=== PATIENT | male | born 1965 | race Two or more races ===

== ENCOUNTER 2019-07-05 01:14 | Inpatient (IN) | payer MEDICARE, MEDICAID, SELFPAY | END 2019-07-08 14:45 | disposition home or self-care (01) | DRG 280 | PROVIDERS: Admitting Provider Internal Medicine; Emergency Provider Emergency Medicine; Family Provider Internal Medicine; Visit Provider Family Medicine | DX: I21.4 Non-ST elevation (NSTEMI) myocardial infarction (principal); J96.01 Acute respiratory failure with hypoxia; N18.6 End stage renal disease; I50.21 Acute systolic (congestive) heart failure; J18.9 Pneumonia, unspecified organism; J96.12 Chronic respiratory failure with hypercapnia; I13.0 Hypertensive heart and chronic kidney disease with heart failure and stage 1 through stage 4 chronic kidney disease, or unspecified chronic kidney disease; E87.2 Acidosis; G89.29 Other chronic pain; M54.9 Dorsalgia, unspecified; Z99.2 Dependence on renal dialysis; Z95.5 Presence of coronary angioplasty implant and graft; Z79.4 Long term (current) use of insulin; Z79.891 Long term (current) use of opiate analgesic; E11.22 Type 2 diabetes mellitus with diabetic chronic kidney disease; Z86.14 Personal history of Methicillin resistant Staphylococcus aureus infection; R19.09 Other intra-abdominal and pelvic swelling, mass and lump; Z79.82 Long term (current) use of aspirin; J44.9 Chronic obstructive pulmonary disease, unspecified; E78.5 Hyperlipidemia, unspecified; Z87.891 Personal history of nicotine dependence; K21.9 Gastro-esophageal reflux disease without esophagitis; D63.1 Anemia in chronic kidney disease; I25.10 Atherosclerotic heart disease of native coronary artery without angina pectoris ==

== ENCOUNTER 2019-07-12 00:31 | Inpatient (IN) | payer MEDICARE, MEDICAID, SELFPAY ==
[2019-07-14] VITALS (17 sets, daily range): BP systolic 105–165; BP diastolic 53–80; PULSE 60–72; RESP 10–20; TEMP 36.7–37.1; O2SAT 90–98
[2019-07-14] MEDS: ipratropium-albuterol 3 mL Neb INHALATION ×2 (02:37→09:05)
--- NOTE | 2019-07-14 03:15 | PC.NURSE ---
UPON SWITCHING TO NEW SYSTEM EXPANSE, PT ALREADY HAD NITRO DRIP RUNNING. NITRO DRIP IS RUNNING AT 10MCG/MIN.
[2019-07-14] MEDS: heparin 5,000 unit/mL INJ 1 mL 5000 UNIT SUBCUT ×2 (05:35→13:13)
[2019-07-14] MEDS: sodium chloride 0.9 % (flush) syringe 10 mL 2 ML IV ×2 (05:35→13:14)
--- NOTE | 2019-07-14 06:40 | PC.NURSE ---
SHIFT SUMMARY PT HAS BEEN ALERT AND ORIENTATED. PT BLOOD PRESSURE HAS CAME DOWN, LAST PRESSURE WAS MUCH BETTER. 105/53. NITRO IS STILL RUNNING AT 10 MCG/MIN. PT LUNGS REMAIN CLEAR. PT HAS NOT HAD ANY OUTPUT THUS FAR. PT HAS HAD NO CARDIAC EVENTS OR RESPIRATORY DISTRESS EVENTS THIS SHIFT.
[2019-07-14] MEDS: duloxetine 60 mg Capsule PO (08:55)
[2019-07-14] MEDS: NIFEdipine ER (24 hr) 30 mg Tablet 60 MG PO ×2 (08:55→17:11)
[2019-07-14] MEDS: isosorbide mononitrate ER 30 mg Tablet PO ×2 (08:56→17:10)
[2019-07-14] MEDS: hyDRALAzine 50 mg Tablet PO ×3 (08:56→17:11)
[2019-07-14] MEDS: clopidogrel 75 mg Tablet PO (08:56)
[2019-07-14] MEDS: losartan 50 mg Tablet 100 MG PO (08:56)
[2019-07-14] MEDS: cyclobenzaprine 10 mg Tablet PO (08:56)
[2019-07-14] MEDS: metoprolol tartrate 50 mg Tablet PO ×2 (08:56→17:10)
[2019-07-14] MEDS: aspirin 81 mg EC Tablet PO (08:56)
[2019-07-14] MEDS: pantoprazole DR 40 mg Tablet PO (08:56)
[2019-07-14 09:23] LABS: Add RBC Morph No
[2019-07-14 09:31] LABS: Basophils # 0.1 10^3/uL (0.0-0.1); Basophils % 0.9 %; Eosinophils # 0.2 10^3/uL (0.0-0.8); Eosinophils % 4.4 %; Hematocrit 27.5 % (42.0-52.0); Hemoglobin 8.8 g/dL (11.7-16.6); Lymphocytes # 1.6 10^3/uL (0.8-4.8); Lymphocytes % 28.8 %; Mean Corpuscular Hemoglobin 28.7 pg (28.0-34.0); Mean Corpuscular Volume 89.6 fL (80-94); Mean Platelet Volume 10.5 fL (7.4-10.4); Monocytes # 0.5 10^3/uL (0.2-0.9); Monocytes % 8.2 %; Neutrophils # 3.2 10^3/uL (1.8-7.7); Neutrophils % 57.3 %; Nucleated Red Blood Cells % 0 %; Platelet Count 187 10^3/cmm (130-400); Red Blood Count 3.07 10^6/uL (4.1-5.3); Red Cell Distribution Width 15.2 % (12.1-15.1); White Blood Count 5.5 10^3/uL (4.0-10.0)
[2019-07-14 10:10] LABS: Alanine Aminotransferase 9 U/L (0-41); Albumin Level 3.5 g/dL (3.5-5.2); Alkaline Phosphatase 79 IU/L (40-130); Anion Gap 16.8 (5-19); Aspartate Amino Transferase 18 U/L (0-40); Blood Urea Nitrogen 41 mg/dL (6-20); Calcium 8.9 mg/Dl (8.6-10.0); Carbon Dioxide 27 mmol/L (22-29); Chloride 99 mmol/L (98-107); Globulin 3.2 g/dL (1.3-4.6); Glomerular Filtration Rate 13.1 mL/min (90-130); Glucose 187 mg/dL (74-109); Potassium 3.8 mmol/L (3.5-5.1); Sodium 139 mmol/L (136-145); Total Bilirubin 0.3 mg/dL (0.15-1.2); Total Protein 6.7 g/dL (6.6-8.7)
--- NOTE | 2019-07-14 10:20 | PM.PN ---
Subjective Subjective: Interval history: Nitroglycerin drip was turned off this morning. Imdur was increased to twice daily. Blood pressure this morning is currently well controlled at 123/62, heart rate of 67. He denies any current complaints of chest pain, dyspnea, palpitations, syncope. Medications: Reviewed: Yes Vitals/I&O/Wt Last Vital Signs Temp 98.2 F 07/14/19 08:00 Pulse 67 07/14/19 09:09 Resp 14 07/14/19 08:55 BP 123/62 07/14/19 08:56 Pulse Ox 98 07/14/19 08:55 07/13/19 07/14/19 07/14/19 22:59 06:59 14:59 Intake Total 110 / 110 Balance 110 / 110 Weight last 48 hrs Weight 95.935 kg Weight 98.543 kg Physical Exam Const: COMMON NORMALS: no apparent distress and oriented x3 Chest: COMMONS NORMALS: inspection of chest normal and palpation of chest normal Resp: COMMON NORMALS: normal respiratory effort, no retractions, no use of accessory muscles and clear to auscultation bilaterally AUSCULTATION: clear to auscultation bilaterally Cardio: COMMON NORMALS: regular rhythm, S1 normal heart sound, S2 normal heart sound and no murmurs RHYTHM: regular rhythm HEART SOUNDS: S1 normal and S2 normal GI: COMMON NORMALS: soft to palpation, non-tender, no hepatosplenomegaly and no masses PALPATION: Yes soft and Yes no hepatosplenomegaly Extremity: OTHER: no edema Neuro: COMMON NORMALS: oriented x3, CN's II-XII intact bilaterally, moves all extremities, no focal motor deficits and deep tendon reflexes 2+ bilaterally Skin: COMMON NORMALS: no rashes or lesions noted GENERAL SKIN EXAM: no rashes or lesions noted Data Labs: Other Labs: All Labs last 24 hrs except CBC/BMP 07/13/19 07/13/19 07/13/19 03:35 03:35 07:22 RBC 2.93 L MCV 91.8 MCH 30.0 MCHC 32.7 RDW 14.9 MPV 10.4 Neut % (Auto) 68.3 Lymph % (Auto) 19.4 [place] % (Auto) 10.6 Eos % (Auto) 0.8 Baso % (Auto) 0.5 Neut # (Auto) 5.1 Lymph # (Auto) 1.5 [place] # (Auto) 0.8 Eos # (Auto) 0.1 Baso # (Auto) 0.0 Nucleated RBC % (a uto) 0 Nucleated RBCs # 0.0 GFR Calculation 10.9 L POC Glucose 202 H Random Glucose 179 H Calcium 9.4 Total Bilirubin AST ALT Alkaline Phosphata se Total Protein Albumin Globulin 07/13/19 07/13/19 07/13/19 11:47 17:05 19:59 RBC MCV MCH MCHC RDW MPV Neut % (Auto) Lymph % (Auto) [place] % (Auto) Eos % (Auto) Baso % (Auto) Neut # (Auto) Lymph # (Auto) [place] # (Auto) Eos # (Auto) Baso # (Auto) Nucleated RBC % (a uto) Nucleated RBCs # GFR Calculation POC Glucose 168 H 321 H 231 H Random Glucose Calcium Total Bilirubin AST ALT Alkaline Phosphata se Total Protein Albumin Globulin 07/14/19 07/14/19 09:20 09:20 RBC 3.07 L MCV 89.6 MCH 28.7 MCHC 32.0 RDW 15.2 H MPV 10.5 H Neut % (Auto) 57.3 Lymph % (Auto) 28.8 [place] % (Auto) 8.2 Eos % (Auto) 4.4 Baso % (Auto) 0.9 Neut # (Auto) 3.2 Lymph # (Auto) 1.6 [place] # (Auto) 0.5 Eos # (Auto) 0.2 Baso # (Auto) 0.1 Nucleated RBC % (a uto) 0 Nucleated RBCs # 0.0 GFR Calculation 13.1 L POC Glucose Random Glucose Calcium 8.9 Total Bilirubin 0.3 AST 18 ALT 9 Alkaline Phosphata se 79 Total Protein 6.7 Albumin 3.5 Globulin 3.2 A&P Assessment and plan (1) Congestive heart failure: Precipitated by hypertensive emergency blood pressure on arrival was greater than 220. Status: Acute Qualifiers: Heart failure type: other Qualified Code(s): I50.9 - Heart failure, unspecified Code(s): I50.9 - Heart failure, unspecified (2) Hypertensive emergency: Most likely precipitated by lack of compliance with medications as an outpatient. He is off of NTG infusion since 9 AM this morning and is holding systolic blood pressures between 1 20-1 30s. We will continue hydralazine metoprolol nifedipine and the increased dose of Imdur yesterday. We will monitor him through the day on this regimen. Status: Acute Code(s): I16.1 - Hypertensive emergency (3) Diabetes mellitus: Continue insulin sliding scale Status: Acute Code(s): E11.9 - Type 2 diabetes mellitus without complications (4) End stage renal disease on dialysis: No dialysis planned for today. Patient will resume his HD tomorrow morning. He is planned for vein mapping for creation of an AV fistula in [place]. Has an appointment tomorrow. If his him blood pressure is stable today we will discharge later today so that patient can keep this appointment. He is extremely anxious to do the same as he has missed his last 2 appointments recently. Status: Acute Code(s): N18.6 - End stage renal disease; Z99.2 - Dependence on renal dialysis Attestations Medical Necessity Statement*: Remains admitted for management of hypertensive emergency. Clinically improving. Likely discharge in the upcoming days. Critical Care Time: Critical care time: 30 - 74 mins Coding Level of Care Code Acute Engineering Group Manager for Thomas Keen Diagnoses Congestive heart failure I50.9 Heart failure type: other Hypertensive emergency I16.1 Diabetes mellitus E11.9 End stage renal disease on dialysis N18.6; Z99.2
[2019-07-14] MEDS: FUROsemide 10 mg/mL SDV 4mL 40 MG IVP (11:15)
--- NOTE | 2019-07-14 14:56 | PC.CHAP ---
Pastoral Care Encounter/Spiritual Assessment Type of Contact [X] Declined flocculator operator visit [] Patient/Family/Request visit [] Outpatient visit [] Follow-up visit [] Physician referral [] Code/Alert [] Routine visit [] Staff referral [] Actively dying [] Patient sleeping [] Family support [] [] Out of room [] Palliative care [] [] Receiving care in room [] Pre-surgical visit [] Trauma [] Long length of stay [] ICU visit [] Other: Relational/Emotional Strength [] Patient feels connected with others/family/visitors/staff [] Distress [] Loneliness/isolation [] Abandonment Spirituality of Patient [] Person of Jana [] Attends Pentecostalism of their Jana [] Believes in Prayer [] Reads Bible or Bahai materials [] There are Spiritual issues to be addressed Office Chair Assembler Interventions [] Prayer [] Active listening [] Non-anxious presence [] Spiritual/emotional support [] Crisis/trauma care [] Spiritual counseling [] Bereavement support [] Provided bereavement packet [] Provided Bible/devotional materials [] Provided toy/stuffed animal, coloring book to patient or family member [] Completed spiritual assessment [] Provided Communion [] Anointing/[facility] [] Salvation [] Other: Impact on Illness or Injury [] Angry [] Fearful [] Anxious [] Often cries [] Exhaustion [] Unable to work [] Unable to attend moravian [] Unable to walk/stand [] Unable to read [] Unable to drive [] Unable to eat/drink [] Unable to sleep [] Unable to be with family [] Other: Summary Declinded Office Chair Assembler Visit Time spent with patient 5 mins
--- NOTE | 2019-07-14 17:04 | PM.PN ---
Subjective Subjective: Interval history: Feels good, received dialysis yesterday, tolerating the therapy well. Bp looks good with oral meds now and he is relatively asymptomatic Medications: Medication Review Details: Vitals/I&O/Wt Last Vital Signs Temp 98.3 F 07/14/19 12:00 Pulse 66 07/14/19 16:00 Resp 12 07/14/19 16:00 BP 137/68 07/14/19 16:00 Pulse Ox 98 07/14/19 16:00 07/14/19 07/14/19 07/14/19 06:59 14:59 22:59 Intake Total 120 / 120 210 / 210 Balance 120 / 120 210 / 210 Weight last 48 hrs Weight 96.615 kg Weight 95.935 kg Weight 98.543 kg Physical Exam Const: COMMON NORMALS: no apparent distress, average body habitus, oriented x3, no limitations, healthy appearing, alert and well nourished HENMT: COMMON NORMALS: normocephalic, head/scalp atraumatic and external nose normal HEAD & SCALP: normocephalic and atraumatic FACE & SINUS: normal facial exam and face symmetric; sinuses not nontender NOSE: external nose normal Eye: COMMON NORMALS: PERRL, EOMs intact bilaterally, conjunctivae normal, no scleral icterus, no papilledema, normal visual meier by confrontation and fundi normal bilaterally CONJUNCTIVA: Yes conjunctivae normal PUPIL: Yes PERRL DIRECT OPHTHALMOSCOPY: Yes no papilledema and Yes fundi normal bilaterally Neck/C-Spine: COMMON NORMALS: no JVD Lymph: LYMPHATIC: no lymphadenopathy noted Chest: COMMONS NORMALS: inspection of chest normal, palpation of chest normal, inspection of breasts normal and palpation of breasts normal Cardio: COMMON NORMALS: no JVD, regular rate, regular rhythm, S1 normal heart sound, S2 normal heart sound, no gallops, no clicks, no murmurs, no rub and peripheral pulses 2+ throughout RATE: regular rate RHYTHM: regular rhythm HEART SOUNDS: S1 normal and S2 normal PERIPHERAL PULSES: pulses 2+ throughout GI: COMMON NORMALS: normal to inspection, nondistended, normoactive bowel sounds, soft to palpation, non-tender, no hepatosplenomegaly, no masses and no bruits PALPATION: Yes soft and Yes no hepatosplenomegaly Neuro: COMMON NORMALS: oriented x3 SENSORIUM/ORIENTATION: Yes alert Data Labs: Other Labs: All Labs last 24 hrs except CBC/BMP 07/13/19 07/13/19 07/13/19 03:35 03:35 07:22 RBC 2.93 L MCV 91.8 MCH 30.0 MCHC 32.7 RDW 14.9 MPV 10.4 Neut % (Auto) 68.3 Lymph % (Auto) 19.4 [place] % (Auto) 10.6 Eos % (Auto) 0.8 Baso % (Auto) 0.5 Neut # (Auto) 5.1 Lymph # (Auto) 1.5 [place] # (Auto) 0.8 Eos # (Auto) 0.1 Baso # (Auto) 0.0 Nucleated RBC % (a uto) 0 Nucleated RBCs # 0.0 GFR Calculation 10.9 L POC Glucose 202 H Random Glucose 179 H Calcium 9.4 Total Bilirubin AST ALT Alkaline Phosphata se Total Protein Albumin Globulin 07/13/19 07/13/19 07/13/19 11:47 17:05 19:59 RBC MCV MCH MCHC RDW MPV Neut % (Auto) Lymph % (Auto) [place] % (Auto) Eos % (Auto) Baso % (Auto) Neut # (Auto) Lymph # (Auto) [place] # (Auto) Eos # (Auto) Baso # (Auto) Nucleated RBC % (a uto) Nucleated RBCs # GFR Calculation POC Glucose 168 H 321 H 231 H Random Glucose Calcium Total Bilirubin AST ALT Alkaline Phosphata se Total Protein Albumin Globulin 07/14/19 07/14/19 09:20 09:20 RBC 3.07 L MCV 89.6 MCH 28.7 MCHC 32.0 RDW 15.2 H MPV 10.5 H Neut % (Auto) 57.3 Lymph % (Auto) 28.8 [place] % (Auto) 8.2 Eos % (Auto) 4.4 Baso % (Auto) 0.9 Neut # (Auto) 3.2 Lymph # (Auto) 1.6 [place] # (Auto) 0.5 Eos # (Auto) 0.2 Baso # (Auto) 0.1 Nucleated RBC % (a uto) 0 Nucleated RBCs # 0.0 GFR Calculation 13.1 L POC Glucose Random Glucose Calcium 8.9 Total Bilirubin 0.3 AST 18 ALT 9 Alkaline Phosphata se 79 Total Protein 6.7 Albumin 3.5 Globulin 3.2 A&P Additional A&P Information Additional A&P Information: 1. ESRD - S/p HD tomorrow if he remains in house - 3L UF, 2K bath 2. SOB - likely a component of fluid overload and uncontrolled HTN - UF helped 3. Hypertension - due to lack of his medication compliance - coming down with OP oral meds - likely DC today - thanks for our involvement in his care Attestations Medical Necessity Statement*: eval for ESRD mgmt Coding Level of Care Code Acute Travel Pt for Thomas Keen
[2019-07-14 17:31] LABS: Glucose Point of Care 182 mg/dL (70-110)
--- NOTE | 2019-07-23 14:26 | P.DS_ITS ---
Discharge Providers Date of Admission: 07/12/19 00:31 Date of Discharge: 07/23/19 Attending Provider at Admission: Karyn Rehman MD Attending Provider at Discharge: Karyn Rehman MD Primary Care Provider: Sandy Kelly MD Diagnoses at Discharge Discharge Diagnosis (1) End stage renal disease on dialysis: Status: Acute (2) Hypertensive emergency: Status: Acute (3) Congestive heart failure: Status: Acute Qualifiers: Heart failure type: other Qualified Code(s): I50.9 - Heart failure, unspecified (4) Diabetes mellitus: Status: Acute Reason for Visit Reason for Visit: Reason For Visit: Resp Failure,Hypercapneic, Hospital Course Discharge Summary: Please see my progress note from today Physical Exam Narrative: EXAM NARRATIVE: please refer to my progress note for the day Discharge Data Vitals: Last Vital Signs Temp 98.4 F 07/14/19 19:26 Pulse 67 07/14/19 19:26 Resp 20 H 07/14/19 19:26 BP 139/73 07/14/19 19:26 Pulse Ox 95 07/14/19 19:26 Discharge Plan Discharge Patient Disposition: Home, Self-Care Condition: Stable Prescriptions: New nifedipine 30 mg Tablet Extended Release 24hr 60 mg PO BID Qty: 60 RF: 0 isosorbide mononitrate 30 mg Tablet Extended Release 24 Hr 30 mg PO BID Qty: 60 RF: 0 Continued furosemide 40 mg Tablet 40 mg PO BID RF: 0 atorvastatin 20 mg Tablet 20 mg PO QPM RF: 0 clopidogrel 75 mg Tablet 75 mg PO DAILY RF: 0 hydrocodone-acetaminophen 10-325 mg Tablet 1 - 2 tab PO Q6H PRN (Reason: Pain) RF: 0 pantoprazole 40 mg Tablet,Delayed Release (Dr/Ec) 40 mg PO DAILY RF: 0 metoprolol tartrate 50 mg Tablet 50 mg PO BID RF: 0 Nitrostat 0.4 mg Tablet, Sublingual 0.4 mg SUBLINGUAL Q5M PRN (Reason: chest pain) RF: 0 aspirin 81 mg Tablet,Chewable 81 mg PO DAILY RF: 0 hydralazine 50 mg Tablet 50 mg PO QID RF: 0 losartan 100 mg Tablet 100 mg PO DAILY RF: 0 bisacodyl 5 mg Tablet 5 mg PO DAILY PRN (Reason: Constipation) RF: 0 ferric citrate 210 mg iron Tablet 210 mg PO TID RF: 0 RenaPlex-D 800 mcg-12.5 mg -2,000 unit Tablet 1 tab PO DAILY RF: 0 Tresiba U-100 Insulin 100 unit/mL Solution 20 unit SUBCUT DAILY RF: 0 duloxetine 60 mg Capsule, Delayed Rel Sprinkle 60 mg PO DAILY RF: 0 Changed cyclobenzaprine 10 mg Tablet 10 mg PO TID PRN (Reason: pain/muscle spams) Qty: 0 RF: 0 Discontinued isosorbide mononitrate 30 mg Tablet Extended Release 24 Hr 30 mg PO DAILY RF: 0 nifedipine 60 mg Tablet Extended Release 24hr 120 mg PO DAILY RF: 0 doxycycline hyclate 100 mg Tablet 100 mg PO DAILY RF: 0 No Action lactulose 20 gram/30 mL Solution 20 g PO BID RF: 0 Discharge Orders: Discharge Order (Routine); Ordered 07/14/19 Ordered By: Karyn Rehman Referrals: Sandy Kelly MD [Primary Care Provider] - 7-10 days (you will need to call for this appointment at [facility] [phone]) Max Cuellar MD [Referring] - 7-10 days (will need to follow up with this appointment . ) Discharge Diet: Low Salt Discharge Activity: Resume usual activity Patient Instructions: Nifedipine (By mouth), Isosorbide Mononitrate (By mouth), Diabetes Insipidus (DC), Low Sodium Diet (GEN), End-Stage Kidney Disease (DC), CHF Stoplight Discharge Date/Time: 07/14/19 20:00 Discharge Attestations Time Spent in Discharge Care*: greater than 30 min Quality Metrics Clinical Quality Measures During this hospital stay, did patient experience: None Coding Level of Care Code Acute Physician Practice Administrator for Chg Fwd Diagnoses End stage renal disease on dialysis N18.6; Z99.2 Hypertensive emergency I16.1 Congestive heart failure I50.9 Heart failure type: other Diabetes mellitus E11.9
== END 2019-07-14 20:00 | disposition home or self-care (01) | DRG 304 ==
PROVIDERS: Admitting Provider Student in an Organized Health Care Education/Training Program; Emergency Provider Emergency Medicine; Family Provider Internal Medicine; PCP Internal Medicine; Referring Provider Student in an Organized Health Care Education/Training Program; Visit Provider Student in an Organized Health Care Education/Training Program
DX: I16.1 Hypertensive emergency (principal); I50.23 Acute on chronic systolic (congestive) heart failure; N18.6 End stage renal disease; J96.21 Acute and chronic respiratory failure with hypoxia; J96.22 Acute and chronic respiratory failure with hypercapnia; I13.2 Hypertensive heart and chronic kidney disease with heart failure and with stage 5 chronic kidney disease, or end stage renal disease; E11.22 Type 2 diabetes mellitus with diabetic chronic kidney disease; I25.5 Ischemic cardiomyopathy; Z79.82 Long term (current) use of aspirin; Z79.02 Long term (current) use of antithrombotics/antiplatelets; Z79.4 Long term (current) use of insulin; G89.29 Other chronic pain; M54.9 Dorsalgia, unspecified; I25.10 Atherosclerotic heart disease of native coronary artery without angina pectoris; Z95.5 Presence of coronary angioplasty implant and graft; M19.90 Unspecified osteoarthritis, unspecified site; Z89.429 Acquired absence of other toe(s), unspecified side; Z91.128 Patient's intentional underdosing of medication regimen for other reason; T46.3X6A Underdosing of coronary vasodilators, initial encounter
CPT/HCPCS: 36415; 36416; 36591; 36600; 71045; 80048; 80053; 82803; 82962; 83735; 83880; 84484; 85007; 85025; 85027; 87040; 90935; 93005; 94640; 94660; 96365; 96366; 96375; 99284; 99291; J1644; J1815; J1940; J2704; J2930; J3490; J7611; J7614; J7644; Q3014

== ENCOUNTER 2019-10-05 12:31 | Outpatient (CLI) | payer MEDICARE, MEDICAID, SELFPAY ==
--- NOTE | 2019-10-05 12:40 | CT_ITS ---
WS: [id number] CT ABDOMEN AND PELVIS NONCONTRAST HISTORY: abdominal pain TECHNIQUE: Imaging performed through the abdomen and pelvis. Coronal and sagittal reformats are submi tted. All CT scans at [facility] use at least one of these dose optimization techniques: automated exposure control; mA and/or kV adjustment per patient size (includes targeted exams where d ose is matched to clinical indication); or iterative reconstruction. DLP: 1143.35 mGycm COMPARISON: 04/09/2019, 02/02/2018 08/07/2015 Lower thorax: Lung bases are clear. Heart size is normal. Liver: Normal, no mass or intrahepatic dilatation. Gallbladder: Unremarkable. Pancreas: Poorly visualized pancreas. No abnormality. Spleen: Normal. Adrenal glands: Normal. Right kidney: Normal size with no stones, masses or atrophy. Left kidney: Normal size with no stones, mass or atrophy. Aorta: Scattered plaque. No aneurysm. No free fluid, intraperitoneal air or significant lymphadenopathy. GI tract: Again noted is a solid exophytic mass from the greater curvature the stomach. Mass extends posterior and to the LEFT measuring 4.0 x 2.7 cm. Not significantly increased in size since 04/09/2019 . Slowly increased in size since 08/07/2015. There is mild thickening of the stomach wall which could be due to underdistention. Diffuse constipation. No GI tract obstruction. Abdominal wall: Intact. Pelvis: No free fluid or adenopathy. Inguinal canals are patent bilaterally. Osseous structures: Rotoscoliosis with convexity to the LEFT. CT/CT abdomen pelvis wo con [id number] IMPRESSION: 1. Slow increase in size of the exophytic mass from the lesser curvature the s tomach now measuring 4.0 x 2.7 cm. Mass has slowly increased in size since 08/07. Differential includes GIST, leiomyoma and sarcoma. 2. Mild constipation with no obstruction. 3. Patent bilateral inguinal canals.
[2019-10-05] MEDS: iohexol 300 mg/mL 50 mL Btl PO (12:43)
== END 2019-10-05 12:32 | disposition home or self-care (01) ==
LOC: RADWPI 12:38
PROVIDERS: Family Provider Internal Medicine; PCP Internal Medicine; Visit Provider Surgery
DX: K59.00 Constipation, unspecified (principal); R10.9 Unspecified abdominal pain; R19.09 Other intra-abdominal and pelvic swelling, mass and lump
CPT/HCPCS: 74176

== ENCOUNTER 2019-12-07 13:14 | Outpatient (CLI) | payer MEDICARE, MEDICAID, SELFPAY | END 2019-12-07 13:15 | disposition home or self-care (01) | LOC: WOUND 13:15 | PROVIDERS: Family Provider Internal Medicine; PCP Internal Medicine; Visit Provider Thoracic Surgery (Cardiothoracic Vascular Surgery) | DX: E11.621 Type 2 diabetes mellitus with foot ulcer (principal); L97.522 Non-pressure chronic ulcer of other part of left foot with fat layer exposed | CPT/HCPCS: 11042; G0463; L3260 ==

== ENCOUNTER 2019-12-14 13:20 | Outpatient (CLI) | payer MEDICARE, MEDICAID, SELFPAY | END 2019-12-14 13:21 | disposition home or self-care (01) | LOC: WOUND 13:22 | PROVIDERS: Family Provider Internal Medicine; PCP Internal Medicine; Visit Provider Thoracic Surgery (Cardiothoracic Vascular Surgery) | DX: E11.621 Type 2 diabetes mellitus with foot ulcer (principal); L97.522 Non-pressure chronic ulcer of other part of left foot with fat layer exposed; L98.492 Non-pressure chronic ulcer of skin of other sites with fat layer exposed | CPT/HCPCS: 11042 ==

== ENCOUNTER 2019-12-21 13:52 | Outpatient (CLI) | payer MEDICARE, MEDICAID, SELFPAY | END 2019-12-21 13:53 | disposition home or self-care (01) | LOC: WOUND 12-22 11:45 | PROVIDERS: Family Provider Internal Medicine; PCP Internal Medicine; Visit Provider Thoracic Surgery (Cardiothoracic Vascular Surgery) | DX: E11.621 Type 2 diabetes mellitus with foot ulcer (principal); L97.522 Non-pressure chronic ulcer of other part of left foot with fat layer exposed; L98.492 Non-pressure chronic ulcer of skin of other sites with fat layer exposed | CPT/HCPCS: 11042 ==

== ENCOUNTER 2020-01-04 08:28 | Outpatient (RCR) | payer MEDICARE, MEDICAID, SELFPAY | END 2020-01-11 23:59 | disposition home or self-care (01) | LOC: WOUND 08:28 | PROVIDERS: Family Provider Internal Medicine; PCP Internal Medicine; Visit Provider Thoracic Surgery (Cardiothoracic Vascular Surgery) | DX: E11.621 Type 2 diabetes mellitus with foot ulcer (principal); L97.522 Non-pressure chronic ulcer of other part of left foot with fat layer exposed | CPT/HCPCS: 11042 ==

== ENCOUNTER 2020-01-25 09:03 | Outpatient (CLI) | payer MEDICARE, MEDICAID, SELFPAY | END 2020-01-25 09:04 | disposition home or self-care (01) | LOC: WOUND 09:04 | PROVIDERS: Family Provider Internal Medicine; PCP Internal Medicine; Visit Provider Thoracic Surgery (Cardiothoracic Vascular Surgery) | DX: Z09 Encounter for follow-up examination after completed treatment for conditions other than malignant neoplasm (principal) | CPT/HCPCS: 99212 ==

== ENCOUNTER 2020-02-22 15:09 | Outpatient (CLI) | payer MEDICARE, MEDICAID, SELFPAY | END 2020-02-22 15:10 | disposition home or self-care (01) | LOC: WOUND 15:10 | PROVIDERS: Family Provider Internal Medicine; PCP Internal Medicine; Visit Provider Thoracic Surgery (Cardiothoracic Vascular Surgery) | DX: S60.512A Abrasion of left hand, initial encounter (principal); X58.XXXA Exposure to other specified factors, initial encounter | CPT/HCPCS: 10060; 88307 ==

== ENCOUNTER 2020-02-23 08:07 | Outpatient (CLI) | payer MEDICARE, MEDICAID, SELFPAY | END 2020-02-23 08:08 | disposition home or self-care (01) | LOC: WOUND 08:08 | PROVIDERS: Family Provider Internal Medicine; PCP Internal Medicine; Visit Provider Thoracic Surgery (Cardiothoracic Vascular Surgery) | DX: S60.512A Abrasion of left hand, initial encounter (principal); X58.XXXA Exposure to other specified factors, initial encounter | CPT/HCPCS: G0463 ==

== ENCOUNTER 2020-02-29 14:47 | Outpatient (CLI) | payer MEDICARE, MEDICAID, SELFPAY | END 2020-02-29 14:48 | disposition home or self-care (01) | LOC: WOUND 14:49 | PROVIDERS: Family Provider Internal Medicine; PCP Internal Medicine; Visit Provider Nurse Practitioner Family | DX: E11.621 Type 2 diabetes mellitus with foot ulcer (principal); L97.522 Non-pressure chronic ulcer of other part of left foot with fat layer exposed; S60.512A Abrasion of left hand, initial encounter; X58.XXXA Exposure to other specified factors, initial encounter | CPT/HCPCS: 11042; L3260 ==

== ENCOUNTER 2020-03-21 15:24 | Outpatient (CLI) | payer MEDICARE, MEDICAID, SELFPAY | END 2020-03-21 15:25 | disposition home or self-care (01) | LOC: WOUND 15:25 | PROVIDERS: Family Provider Internal Medicine; PCP Internal Medicine; Visit Provider Thoracic Surgery (Cardiothoracic Vascular Surgery) | DX: E11.621 Type 2 diabetes mellitus with foot ulcer (principal); L97.522 Non-pressure chronic ulcer of other part of left foot with fat layer exposed; S60.512A Abrasion of left hand, initial encounter; X58.XXXA Exposure to other specified factors, initial encounter | CPT/HCPCS: 97597 ==

== ENCOUNTER → 2020-03-28 11:18 | Outpatient (BNVA) | payer MEDICARE, MEDICAID, SELFPAY | PROVIDERS: Family Provider Internal Medicine; PCP Internal Medicine; Referring Provider Internal Medicine; Visit Provider Dermatology | DX: D48.5 Neoplasm of uncertain behavior of skin (principal); L82.1 Other seborrheic keratosis | CPT/HCPCS: 99203 ==

== ENCOUNTER 2020-04-04 14:23 | Outpatient (CLI) | payer MEDICARE, MEDICAID, SELFPAY | END 2020-04-04 14:24 | disposition home or self-care (01) | LOC: WOUND 14:23 | PROVIDERS: Family Provider Internal Medicine; PCP Internal Medicine; Visit Provider Thoracic Surgery (Cardiothoracic Vascular Surgery) | DX: E11.621 Type 2 diabetes mellitus with foot ulcer (principal); L97.522 Non-pressure chronic ulcer of other part of left foot with fat layer exposed; S60.512A Abrasion of left hand, initial encounter; X58.XXXA Exposure to other specified factors, initial encounter | CPT/HCPCS: 97597 ==

== ENCOUNTER 2020-08-16 01:52 | Emergency (ER) | payer MEDICARE, MEDICAID, SELFPAY ==
[2020-08-16] VITALS (10 sets, daily range): BP systolic 102–200; BP diastolic 65–110; PULSE 66–124; RESP 14–24; TEMP 36.4; O2SAT 94–99; BMI 33.9
--- NOTE | 2020-08-16 01:53 | XR_ITS ---
WS: [id number] Portable AP upright chest, 08/16/2020 Clinical Data: sob Comparison: Portable chest, 07/11/2019. Findings: Bilateral patchy opacities are present which probably represents diffuse pulmonary edema. T he heart is enlarged. There is an endotracheal tube above the ricki. A left infusion catheter ends i n the superior vena cava. There is a dextroscoliosis. Monitor leads are on the chest wall. XR/XR chest 1V portable [id number] Impression: 1. Diffuse bilateral patchy opacities most consistent with pulmonary edema. 2. Endotracheal tube and left Port-A-Cath are in good position.
--- NOTE | 2020-08-16 01:54 | ECG_ITS ---
[facility] Test Date: 2020-08-16 Pat Name: Kt Jett Department: Room: Gender: Male Cytometry Technologist: : 1965 Requested By: Stephanie Camarillo Order Number: [id number] Veronica MD: Ben Navas M.D. Measurements Intervals [place] Rate: 120 P: 8 [place]: 157 QRS: 93 QRSD: 130 T: 61 QT: 367 QTc: 519 Interpretive Statements SINUS TACHYCARDIA WITH OCCASIONAL SUPRAVENTRICULAR PREMATURE COMPLEXES BORDERLINE RIGHT AXIS DEVIATION [QRS AXIS > 90] MODERATE INTRAVENTRICULAR CONDUCTION DELAY [110+ ms QRS DURATION] NONSPECIFIC ST & T-WAVE ABNORMALITY ABNORMAL RHYTHM ECG Compared to ECG 07/12/2019 00:14:26 Possible ischemia no longer present T-wave abnormality still present Electronically Signed On 08-16-2020 20:01:41 FUNERAL DIRECTOR/EMBALMER/OWNER by Ben Navas M.D. [email or web address]
[2020-08-16 02:11] LABS: ABG PH Result 7.24 (7.35-7.45); Arterial Blood Gas Hematocrit 33.5 % (42-52); Base Excess ABG 1.7 mmol/L (-2.0-2.0); Blood Gas Allen Test Pos; Blood Gas Sample Site Radial, right; Blood Gas Sample Type Arterial; Carboxyhemoglobin 0.8 %THgb (0.4-20.1); HCO3 ABG 30.5 mmol/L (22-26); HGB O2 Sat 95.4 % (95-100); Methemoglobin 1.1 % (0.4-1.5); Total Hemoglobin 10.9 g/dL (14-18)
[2020-08-16 02:12] LABS: Blood Gas Tidal Volume 0.45; Oxygen Device VENT
[2020-08-16 02:14] LABS: ABG PCO2 70.4 mmHg (35-45)
--- NOTE | 2020-08-16 02:22 | ED_ITS ---
HPI - SOB/Dyspnea General: Chief Complaint: Shortness of Breath/Dyspnea Stated Complaint: INTUBATED Time Seen by Provider: 08/16/20 01:53 Source: EMS Mode of arrival: EMS Limitations: altered mental status History of Present Illness: HPI Narrative: 55-year-old male who has a history of end-stage renal disease and is on dialysis. Patient called EMS tonight for shortness of breath. EMS states when they arrived he was in severe distress and had saturations in the 70s. They intubated him at scene. Patient is currently intubated and sedated. He did have a procedure today that they believe was an EGD. He then complained of any fever. Patient has been intubated in the past. He does not say anything to EMS about if he had missed dialysis. Review of Systems General: Reports: ROS unobtainable due to medical condition PFS ED PFSH: Medical History (Updated 08/16/20 @ 03:19 by Stephanie Camarillo MD) CAD (coronary artery disease) Cardiomyopathy Chronic back pain CKD (chronic kidney disease) Diabetes mellitus Diabetes mellitus, type II End stage renal disease on dialysis ESRD (end stage renal disease) Fibromyalgia GERD (gastroesophageal reflux disease) Hemodialysis access site with arteriovenous graft Hx of staphylococcal infection Hypertension Hypertensive emergency Lumbar disc disease Osteoarthritis Surgical History H/O circumcision History of cataract surgery History of coronary artery stent placement S/P carpal tunnel release S/P tonsillectomy Status post insertion of hemodialysis catheter Status post peritoneal dialysis Family History Mother Aneurysm Grandmother Cancer Sister Cancer Social History Smoking and tobacco status: former smoker Alcohol intake: never Lives independently: Yes Household members: none Housing: House Marital status: service: No Current occupational status: disabled History of recent travel: No Physical Exam Const: COMMON NORMALS: negative for patient oriented x3 GENERAL APPEARANCE: ill appearing OTHER: intubated HENMT: COMMON NORMALS: normocephalic and atraumatic HEAD & SCALP: normocephalic and atraumatic Eye: COMMON NORMALS: Equal, round and reactive pupils present and EOMs intact bilaterally PUPIL: Yes Equal, round and reactive pupils present Neck/C-Spine: COMMON NORMALS: full ROM and supple Chest: COMMONS NORMALS: normal inspection of the chest and normal palpation of entire chest wall Resp: COMMON NORMALS: normal respiratory effort, No retractions, No use of accessory muscles and clear to auscultation bilaterally AUSCULTATION: clear to auscultation bilaterally OTHER: Patient is intubated with bilateral breath sounds noted Cardio: COMMON NORMALS: regular rate, regular rhythm and No murmurs present (Cardio) RATE: regular rate RHYTHM: regular rhythm GI: COMMON NORMALS: Normal to inspection, nondistended, normoactive bowel sounds present, Soft to palpation, non-tender and no masses PALPATION: Yes Soft to palpation Extremity: COMMON NORMALS: normal to inspection and full ROM Neuro: COMMON NORMALS: negative for patient oriented x3 Psych: COMMON NORMALS: negative for mental status grossly normal Skin: COMMON NORMALS: no rashes or lesions noted and no wounds GENERAL SKIN EXAM: no rashes or lesions noted Course Vital Signs: Vital signs: Vital Signs Temperature 97.5 F L 08/16/20 01:54 Pulse Rate 82 08/16/20 02:56 Respiratory Rate 14 08/16/20 02:56 Blood Pressure 154/92 08/16/20 02:56 Pulse Oximetry 94 08/16/20 02:56 MDM - SOB/Dyspnea MDM Narrative: Medical decision making narrative: Patient presents here with pulmonary edema likely from fluid overload on end-stage renal disease. Patient was quite hypertensive when he arrived and been given him IV blood pressure medicines and his blood pressure has improved. Patient was intubated when he arrived. I spoke to Dr. Soriano at [facility] will transfer there as we do not have ICU availability. Patient's potassium level here is normal. Lab Data: Labs: Lab Results 08/16/20 08/16/20 08/16/20 Range/Units 01:55 02:00 02:00 WBC 8.4 (4.0-10.0) 10^3/ uL RBC 3.30 L (4.1-5.3) 10^6/u L Hgb 10.4 L (11.7-16.6) g/dL Hct 33.5 L (42.0-52.0) % MCV 101.5 H (80-94) fL MCH 31.5 (28.0-34.0) pg MCHC 31.0 (30.0-36.0) g/dL RDW 12.4 (12.1-15.1) % Plt Count 258 (130-400) 10^3/c mm MPV 10.3 (7.4-10.4) fL Neut % (Auto) 56.6 % Lymph % (Auto) 31.7 % [place] % (Auto) 5.9 % Eos % (Auto) 4.3 % Baso % (Auto) 1.1 % Neut # (Auto) 4.75 (1.8-7.7) 10^3/u L Lymph # (Auto) 2.7 (0.8-4.8) 10^3/u L [place] # (Auto) 0.5 (0.2-0.9) 10^3/u L Eos # (Auto) 0.4 (0.0-0.8) 10^3/u L Baso # (Auto) 0.1 (0.0-0.1) 10^3/u L Nucleated RBC % (a uto) 0 % Nucleated RBCs # 0.0 /100WBC PT 12.90 (12.1-14.9) SECO NDS INR 0.95 (0.8-1.2) Specimen Type Arterial Sample Site Radial, right ABG pH 7.24 L (7.35-7.45) ABG pCO2 70.4 H* (35-45) mmHg ABG pO2 137.0 H (80.0-100.0) mmH g ABG HCO3 30.5 H (22-26) mmol/L ABG Base Excess 1.7 (-2.0-2.0) mmol/ L Eliazar Test Pos Hematocrit 33.5 L (42-52) % Hgb O2 Saturation 95.4 (95-100) % Carboxyhemoglobin 0.8 (0.4-20.1) %THgb Methemoglobin 1.1 (0.4-1.5) % Total Hemoglobin 10.9 L (14-18) g/dL O2 Delivery Device Vent FiO2 80.0 % Tidal Volume 0.45 PEEP 8.0 cmH20 [place] Swage Operator ID Jlg Sodium (136-145) mmol/L Potassium (3.5-5.1) mmol/L Chloride (98-107) mmol/L Carbon Dioxide (22-29) mmol/L Calcium (8.5-10.5) mg/dL Total Bilirubin (0.15-1.2) mg/dL AST (0-40) U/L ALT (0-41) U/L Alkaline Phosphata se (40-130) IU/L Total Protein (6.6-8.7) g/dL Albumin (3.5-5.2) g/dL Globulin (1.3-4.6) g/dL 08/16/20 Range/Units 02:00 WBC (4.0-10.0) 10^3/ uL RBC (4.1-5.3) 10^6/u L Hgb (11.7-16.6) g/dL Hct (42.0-52.0) % MCV (80-94) fL MCH (28.0-34.0) pg MCHC (30.0-36.0) g/dL RDW (12.1-15.1) % Plt Count (130-400) 10^3/c mm MPV (7.4-10.4) fL Neut % (Auto) % Lymph % (Auto) % [place] % (Auto) % Eos % (Auto) % Baso % (Auto) % Neut # (Auto) (1.8-7.7) 10^3/u L Lymph # (Auto) (0.8-4.8) 10^3/u L [place] # (Auto) (0.2-0.9) 10^3/u L Eos # (Auto) (0.0-0.8) 10^3/u L Baso # (Auto) (0.0-0.1) 10^3/u L Nucleated RBC % (a uto) % Nucleated RBCs # /100WBC PT (12.1-14.9) SECO NDS INR (0.8-1.2) Specimen Type Sample Site ABG pH (7.35-7.45) ABG pCO2 (35-45) mmHg ABG pO2 (80.0-100.0) mmH g ABG HCO3 (22-26) mmol/L ABG Base Excess (-2.0-2.0) mmol/ L Eliazar Test Hematocrit (42-52) % Hgb O2 Saturation (95-100) % Carboxyhemoglobin (0.4-20.1) %THgb Methemoglobin (0.4-1.5) % Total Hemoglobin (14-18) g/dL O2 Delivery Device FiO2 % Tidal Volume PEEP cmH20 [place] Swage Operator ID Sodium 142 (136-145) mmol/L Potassium 3.8 (3.5-5.1) mmol/L Chloride 98 (98-107) mmol/L Carbon Dioxide 27 (22-29) mmol/L Calcium 8.6 (8.5-10.5) mg/dL Total Bilirubin 0.3 (0.15-1.2) mg/dL AST 22 (0-40) U/L ALT 13 (0-41) U/L Alkaline Phosphata se 85 (40-130) IU/L Total Protein 7.5 (6.6-8.7) g/dL Albumin 3.8 (3.5-5.2) g/dL Globulin 3.7 (1.3-4.6) g/dL EKG Data^: EKG 1: Attestation: I personally reviewed and interpreted this EKG as follows: EKG Interpretation Date: 08/16/20 EKG interpretation time: 02:35 Interpretation: sinus tach hr [address] or t wave abnormalities qrs 1330 qtc 438 Critical Care Time Critical Care Time: Critical Care Time: Yes Total Critical Care Time: 35 Attestation: This case had a high probability of a clinically significant, sudden, or life threatening deterioration of this patient's condition which required my full and direct attention, intervention and personal management. Discharge Plan Discharge Patient Disposition: Admitted As Inpatient Clinical Impression: End stage renal disease on dialysis Pulmonary edema Qualifiers: Chronicity: acute Qualified Code(s): J81.0 - Acute pulmonary edema Condition: Stable Coding Level of Care Code ED Supply Tech for [facility] Fwd Exam Comprehensive
[2020-08-16 02:32] LABS: Basophils # 0.1 10^3/uL (0.0-0.1); Basophils % 1.1 %; Eosinophils # 0.4 10^3/uL (0.0-0.8); Eosinophils % 4.3 %; Hematocrit 33.5 % (42.0-52.0); Hemoglobin 10.4 g/dL (11.7-16.6); Lymphocytes # 2.7 10^3/uL (0.8-4.8); Lymphocytes % 31.7 %; Mean Corpuscular Hemoglobin 31.5 pg (28.0-34.0); Mean Corpuscular Volume 101.5 fL (80-94); Mean Platelet Volume 10.3 fL (7.4-10.4); Monocytes # 0.5 10^3/uL (0.2-0.9); Monocytes % 5.9 %; Neutrophils # 4.75 10^3/uL (1.8-7.7); Neutrophils % 56.6 %; Nucleated Red Blood Cells % 0 %; Platelet Count 258 10^3/cmm (130-400); Red Cell Distribution Width 12.4 % (12.1-15.1); White Blood Count 8.4 10^3/uL (4.0-10.0)
[2020-08-16] MEDS: labetalol 5 mg/mL SDV 20mL 10 MG IVP (02:42)
[2020-08-16 02:45] LABS: INR 0.95 (0.8-1.2)
[2020-08-16] MEDS: propofol 1,000 MG/100 ML INJ 3.4 MG IV (02:51)
[2020-08-16 02:58] LABS: Alanine Aminotransferase 13 U/L (0-41); Albumin Level 3.8 g/dL (3.5-5.2); Alkaline Phosphatase 85 IU/L (40-130); Anion Gap 20.8 (5-19); Aspartate Amino Transferase 22 U/L (0-40); Blood Urea Nitrogen 27 mg/dL (6-20); Calcium 8.6 mg/dL (8.5-10.5); Carbon Dioxide 27 mmol/L (22-29); Chloride 98 mmol/L (98-107); Globulin 3.7 g/dL (1.3-4.6); Glomerular Filtration Rate 9.4 mL/min (90-130); Glucose 320 mg/dL (65-115); NT Pro B Type Natriuretic Pept 12928 pg/mL (0-125); Osmolality Calculated 311 mOsm/kg (285-295); Potassium 3.8 mmol/L (3.5-5.1); Sodium 142 mmol/L (136-145); Total Bilirubin 0.3 mg/dL (0.15-1.2); Total Protein 7.5 g/dL (6.6-8.7)
[2020-08-16 03:20] LABS: Troponin(5th) Baseline 170 ng/L (0-15)
[2020-08-16 03:37] LABS: SARS Covid-2 Antigen Negative (Negative)
[2020-08-16] MEDS: bumetanide 0.25 mg/mL SDV 10 mL 2 MG IV (03:44)
--- NOTE | 2020-08-16 03:54 | ECG_ITS ---
[facility] Test Date: 2020-08-16 Pat Name: Kt Jett Department: Room: Gender: Male Soup Person: : 1965 Requested By: Stephanie Camarillo Order Number: [id number] Veronica MD: Ben Navas M.D. Measurements Intervals [place] Rate: 68 P: 42 NC: 190 QRS: 85 QRSD: 120 T: 127 QT: 465 QTc: 498 Interpretive Statements SINUS RHYTHM MODERATE INTRAVENTRICULAR CONDUCTION DELAY [110+ ms QRS DURATION] ST DEVIATION AND MODERATE T-WAVE ABNORMALITY, CONSIDER LATERAL ISCHEMIA [-0.1+ mV T WAVE IN I/aVL/V5/V6] Compared to ECG 08/16/2020 02:35:38 Possible ischemia now present Sinus tachycardia no longer present T-wave abnormality still present Electronically Signed On 08-16-2020 20:17:38 DOWELING MACHINE OPERATOR by Ben Navas M.D. [id number]
[2020-08-16 04:40] LABS: Add Urine Microscopic? YES; Bilirubin Urine Neg (Negative); Blood Urine 2+ (Negative); Glucose Urine UA 4+ (Normal); Ketones Urine Negative (Negative); Leukocyte Esterase Urine Negative (Negative); Nitrate Urine Negative (Negative); Protein Urine 1+ (Negative); Specific Gravity, Urine 1.015 (1.005-1.030); Sulfosalicylic Acid Urine Positive (Negative); Urine Appearance Clear (CLEAR); Urine Color Yellow (Yellow); Urobilinogen Urine Norm (Negative); pH Urine 9 (5-7)
[2020-08-16 04:45] LABS: Troponin 5 2HR 245.4 ng/L (0-15); Troponin 5 2HR Delta 75.4 ABS# (0-10)
[2020-08-16 05:25] LABS: Add Urine Culture? No; Bacteria Urine 1+ /hpf; Hyaline Casts Urine 0-4 /lpf; Squamous Epithelial Cell Urine 0-4 /hpf (0-5); Transitional Epi Cells Urine 0-4 /hpf
== END 2020-08-16 05:49 | disposition admitted as inpatient to this hospital (09) ==
PROVIDERS: Emergency Provider Emergency Medicine; PCP Internal Medicine
DX: J81.0 Acute pulmonary edema (principal); E11.22 Type 2 diabetes mellitus with diabetic chronic kidney disease; I12.0 Hypertensive chronic kidney disease with stage 5 chronic kidney disease or end stage renal disease; N18.6 End stage renal disease; Z99.2 Dependence on renal dialysis; I25.10 Atherosclerotic heart disease of native coronary artery without angina pectoris; Z87.891 Personal history of nicotine dependence
CPT/HCPCS: 12345; 36600; 51702; 71045; 80053; 81001; 82805; 83880; 84484; 85025; 85610; 87426; 93005; 94002; 94799; 96365; 96366; 96375; 99283; 99291; 99292; J2704; J3490

== ENCOUNTER 2020-09-01 07:55 | Outpatient (RCR) | payer MEDICARE, MEDICAID, SELFPAY ==
[2020-08-30] MEDS: cefTRIAXone 2,000 MG in sodium chloride 0.9% (plus) 50 ML 100 MG IV (07:48)
[2020-08-30 08:02] VITALS: BMI 33.2
[2020-08-30 08:06] VITALS: BP 188/90; PULSE 98; RESP 18; TEMP 37
[2020-08-31 08:30] VITALS: BP 167/78; PULSE 82; RESP 18; TEMP 36.8; O2SAT 100
[2020-08-31] MEDS: cefTRIAXone 2,000 MG in sodium chloride 0.9% (plus) 50 ML 100 MG IV (08:54)
[2020-09-01] MEDS: cefTRIAXone 2,000 MG in sodium chloride 0.9% (plus) 50 ML 100 MG IV (08:06)
[2020-09-01 08:39] VITALS: BP 162/71; PULSE 70; RESP 18; TEMP 37.1; O2SAT 100
--- NOTE | 2020-09-01 08:46 | PC.NURSE ---
patient came in for infusion with a question about how/where he should be getting his vitamin b12 shot. I called the dialysis clinic and spoke with Jaja. She said they were also wondering who had been giving him his b12 shot. I told her that the patient stated he had the b12 vial at home but had not been doing it himself because he was never instructed to and didn't know if dialysis would be doing this or not. Per Jaja I instructed patient to go home and get all medications that he took and take them with him to his dialysis appointment today and they would help him figure out how to get his B12 injection. Patient understood and said he would do that.
[2020-09-02] MEDS: cefTRIAXone 2,000 MG in sodium chloride 0.9% (plus) 50 ML 100 MG IV (09:40)
[2020-09-02 10:35] VITALS: BP 148/66; PULSE 63; RESP 18; TEMP 36.9; O2SAT 98
--- NOTE | 2020-09-02 10:36 | SUR.PREOP ---
no blood return noted. flushed easily and infused medicine without difficulty.
[2020-09-03] MEDS: cefTRIAXone 2,000 MG in sodium chloride 0.9% (plus) 50 ML 100 MG IV (09:36)
[2020-09-03 09:37] VITALS: BP 189/84; PULSE 64; RESP 18; TEMP 36.6; O2SAT 98
== END 2020-09-10 23:59 | disposition home or self-care (01) ==
LOC: OPS 07:55
PROVIDERS: PCP Internal Medicine; Visit Provider Internal Medicine
DX: R78.81 Bacteremia (principal); B95.61 Methicillin susceptible Staphylococcus aureus infection as the cause of diseases classified elsewhere
CPT/HCPCS: 96365; J0696; J2250; J2405; J2704; J3010

== ENCOUNTER 2020-09-03 20:09 | Inpatient (IN) | payer MEDICARE, MEDICAID, SELFPAY ==
[2020-09-03] VITALS (7 sets, daily range): BP systolic 98–199; BP diastolic 54–113; PULSE 60–103; RESP 12–34; TEMP 37.1; O2SAT 97–100; BMI 35.2
--- NOTE | 2020-09-03 03:22 | XR_ITS ---
WS: [id number] Exam: XR chest 1V portable [id number] Date/Time of Exam: 09/03/2020 3:22 AM Reason For Exam: sob Comparison August 16, 2020. Bilateral widespread pulmonary infiltrates again noted. There has been some partial clearing of the r ight pulmonary infiltrates since previous study. Heart size is unchanged. No pleural effusions or pne umothorax. An ET tube the ends about 3 cm above the ricki unchanged in position. A left-sided subcla vian port extends into the lower one third of the SVC. An enteric tube is noted in the stomach but th e tip is not visible. Monitoring leads superimpose the chest. XR/XR chest 1V portable [id number] IMPRESSION: 1. Bilateral pulmonary infiltrates. There has been some improvement on the righ t but no other change in the overall appearance of the chest. 2. ET tube, enteric tube and left subclavian port all remain in good position.
--- NOTE | 2020-09-03 20:12 | ECG_ITS ---
[facility] Test Date: 2020-09-03 Pat Name: Kt Jett Department: Room: Gender: Male Archives Technician: : 1965 Requested By: Miguel Lopez Order Number: [id number] Veronica MD: Meaghan Casey M.D. Measurements Intervals [place] Rate: 82 P: 38 [place]: 188 QRS: 95 QRSD: 135 T: 81 QT: 405 QTc: 474 Interpretive Statements SINUS RHYTHM BORDERLINE RIGHT AXIS DEVIATION [QRS AXIS > 90] INTRAVENTRICULAR CONDUCTION DELAY [130+ ms QRS DURATION] Compared to ECG 08/16/2020 04:26:57 T-wave abnormality no longer present Possible ischemia no longer present Electronically Signed On 09-04-2020 12:42:34 LENS BLOCKER by Meaghan Casey M.D. [id number]
[2020-09-03] MEDS: succinylcholine 20 mg/mL SDV 10mL 200 MG IVP (20:18)
[2020-09-03] MEDS: midazolam 1 mg/mL INJ 2 mL 4 MG IVP (20:23)
[2020-09-03] MEDS: vecuronium 10 mg SDV IVP (20:24)
[2020-09-03] MEDS: ipratropium-albuterol 3 mL Neb INHALATION (20:33)
[2020-09-03 20:35] LABS: ABG PH Result 7.24 (7.35-7.45); Arterial Blood Gas Hematocrit 27.3 % (42-52); Base Excess ABG -0.5 mmol/L (-2.0-2.0); Blood Gas Allen Test Pos; Blood Gas Sample Type Arterial; Carboxyhemoglobin 2.4 %THgb (0.4-20.1); HCO3 ABG 27.6 mmol/L (22-26); HGB O2 Sat 97.2 % (95-100); Methemoglobin 0.9 % (0.4-1.5); Total Hemoglobin 8.9 g/dL (14-18)
[2020-09-03 20:37] LABS: ABG PCO2 64.9 mmHg (35-45); Blood Gas Sample Site Radial, right; Blood Gas Tidal Volume 0.45; Oxygen Device VENT
[2020-09-03 20:44] LABS: Basophils # 0.1 10^3/uL (0.0-0.1); Basophils % 1.4 %; Eosinophils # 0.5 10^3/uL (0.0-0.8); Eosinophils % 6.6 %; Hematocrit 28.1 % (42.0-52.0); Hemoglobin 8.3 g/dL (11.7-16.6); Lymphocytes # 2.4 10^3/uL (0.8-4.8); Lymphocytes % 29.9 %; Mean Corpuscular HGB Conc 29.5 g/dL (30.0-36.0); Mean Corpuscular Hemoglobin 33.1 pg (28.0-34.0); Mean Platelet Volume 10.4 fL (7.4-10.4); Monocytes # 0.4 10^3/uL (0.2-0.9); Monocytes % 4.9 %; Neutrophils # 4.55 10^3/uL (1.8-7.7); Neutrophils % 56.8 %; Nucleated Red Blood Cells % 0 %; Platelet Count 261 10^3/cmm (130-400); Red Blood Count 2.51 10^6/uL (4.1-5.3); Red Cell Distribution Width 18.4 % (12.1-15.1)
[2020-09-03 20:55] LABS: INR 0.96 (0.8-1.2)
[2020-09-03 20:57] LABS: D Dimer 2.59 ug/mIFEU (0-0.59)
[2020-09-03] MEDS: propofol 1,000 MG/100 ML INJ 10.6 MG IV (21:05)
[2020-09-03 21:09] LABS: Troponin(5th) Baseline 910 ng/L (0-15)
[2020-09-03 21:30] LABS: Alanine Aminotransferase 20 U/L (0-41); Albumin Level 3.9 g/dL (3.5-5.2); Alkaline Phosphatase 131 IU/L (40-130); Anion Gap 22.2 (5-19); Aspartate Amino Transferase 42 U/L (0-40); Blood Urea Nitrogen 39 mg/dL (6-20); Calcium 7.8 mg/dL (8.5-10.5); Carbon Dioxide 26 mmol/L (22-29); Chloride 91 mmol/L (98-107); Globulin 3.2 g/dL (1.3-4.6); Glomerular Filtration Rate 7.6 mL/min (90-130); Glucose 295 mg/dL (65-115); Osmolality Calculated 300 mOsm/kg (285-295); Potassium 4.2 mmol/L (3.5-5.1); Sodium 135 mmol/L (136-145); Total Bilirubin 0.3 mg/dL (0.15-1.2); Total Protein 7.1 g/dL (6.6-8.7)
[2020-09-03 21:34] LABS: Lactic Sepsis W/Reflex 3.5 mmol/L (0.5-2.2)
--- NOTE | 2020-09-03 21:50 | ED_ITS ---
HPI - SOB/Dyspnea General: Chief Complaint: Shortness of Breath/Dyspnea Stated Complaint: SOB Time Seen by Provider: 09/03/20 20:09 History of Present Illness: HPI Narrative: 55-year-old gentleman with a history of diabetes, CKD on dialysis, and lung disease. He presents after calling 911 from home with short of breath. On arrival her oxygen saturations were very low according to EMS. He would answer simple yes or no questions. On arrival here, he will open eyes to command, but that is it. He is not speaking he is in respiratory distress, and is obtunded. MD elicited complaint: shortness of breath and cough Pertinent past history: COPD, congestive heart failure and other Review of Systems General: Reports: ROS unobtainable due to medical condition PFSH ED PFSH: Medical History CAD (coronary artery disease) Cardiomyopathy Chronic back pain CKD (chronic kidney disease) Diabetes mellitus Diabetes mellitus, type II End stage renal disease on dialysis ESRD (end stage renal disease) Fibromyalgia GERD (gastroesophageal reflux disease) Hemodialysis access site with arteriovenous graft Hx of staphylococcal infection Hypertension Hypertensive emergency Lumbar disc disease Osteoarthritis Surgical History H/O circumcision History of cataract surgery History of coronary artery stent placement S/P carpal tunnel release S/P tonsillectomy Status post insertion of hemodialysis catheter Status post peritoneal dialysis Family History Mother Aneurysm Grandmother Cancer Sister Cancer Social History Smoking and tobacco status: former smoker Alcohol intake: never Lives independently: Yes Household members: none Housing: House Marital status: service: No Current occupational status: disabled History of recent travel: No Physical Exam Const: EXAM LIMITATIONS: altered mental status GENERAL APPEARANCE: ill appearing NUTRITIONAL APPEARANCE: overweight ORIENTATION/CONSCIOUSNESS: Yes patient obtunded HENMT: COMMON NORMALS: normocephalic HEAD & SCALP: normocephalic Chest: COMMONS NORMALS: normal inspection of the chest Resp: EFFORT & INSPECTION: Yes able to speak in complete sentences, Yes symmetric chest movement, Yes tachypneic, Yes respiratory distress, Yes decreased respiratory effort, Yes labored, Yes grunting and Yes audible wheezes AUSCULTATION: crackles, wheezes and diminished lung sounds Cardio: COMMON NORMALS: regular rate and regular rhythm RATE: regular rate RHYTHM: regular rhythm GI: COMMON NORMALS: Soft to palpation INSPECTION: Yes abdominal distension PALPATION: Yes Soft to palpation and No Guarding due to palpation present (GI) Extremity: NARRATIVE EXTREMITY EXAM: Ulceration plantar surface left great toe, chronic. Right great toe subungual ecchymosis versus possibility of splinter hemorrhaging Procedures Intubation Time out performed: No sedative: Etomidate Mg Given: 30 paralytic: Succinylcholine Mg Given: 200 Laryngoscope: Saskia ET Tube Size: 8 ET Tube Uncuffed: No Tube Secured Depth (cm): 25 Tube Secured Location: lips Tube Placement Confirmation: visualized tube passing through cords, equal breath sounds bilaterally and confirmation by capnometry Patient Tolerated Procedure: no complications Intubation Complications: none Course Consultations: Consultation #1: [email or web address] Time: 22:03 Vital Signs: Vital signs: Vital Signs Temperature 98.7 F 09/03/20 20:58 Pulse Rate 62 09/03/20 23:46 Respiratory Rate 20 H 09/03/20 23:46 Blood Pressure 134/59 09/03/20 23:46 Pulse Oximetry 100 09/03/20 23:46 MDM - SOB/Dyspnea MDM Narrative: Medical decision making narrative: 55-year-old male presents obtunded in respiratory distress, with significant mental status change. He was intubated on arrival. No complications. There is a mid IV line in the left arm, that was nonfunctional and was pulled. The patient now has 2 18-gauge IVs. He is on propofol and fentanyl, with good sedation. Currently blood pressure is 123/59, pulse is 60, saturations are 100%. Hemoglobin is 8.3. His creatinine is 7.5. He is a dialysis patient. Troponin is 910, which is higher than his previous troponins despite a creatinine. He will be heparinized for that he will go to the ICU. Hospitalist will see in the ER. Lab Data: Labs: Lab Results 09/03/20 09/03/20 09/03/20 Range/Units 02:15 20:26 20:37 WBC 8.0 (4.0-10.0) 10^3/ uL RBC 2.51 L (4.1-5.3) 10^6/u L Hgb 8.3 L (11.7-16.6) g/dL Hct 28.1 L (42.0-52.0) % MCV 112.0 H (80-94) fL MCH 33.1 (28.0-34.0) pg MCHC 29.5 L (30.0-36.0) g/dL RDW 18.4 H (12.1-15.1) % Plt Count 261 (130-400) 10^3/c mm MPV 10.4 (7.4-10.4) fL Neut % (Auto) 56.8 % Lymph % (Auto) 29.9 % [place] % (Auto) 4.9 % Eos % (Auto) 6.6 % Baso % (Auto) 1.4 % Neut # (Auto) 4.55 (1.8-7.7) 10^3/u L Lymph # (Auto) 2.4 (0.8-4.8) 10^3/u L [place] # (Auto) 0.4 (0.2-0.9) 10^3/u L Eos # (Auto) 0.5 (0.0-0.8) 10^3/u L Baso # (Auto) 0.1 (0.0-0.1) 10^3/u L Nucleated RBC % (a uto) 0 % Nucleated RBCs # 0.0 /100WBC PT (12.1-14.9) SECO NDS INR (0.8-1.2) D-Dimer (0-0.59) ug/mIFE U Specimen Type Arterial Arterial Sample Site Brachial, left Radial, right ABG pH 7.39 7.24 L (7.35-7.45) ABG pCO2 49.1 H 64.9 H* (35-45) mmHg ABG pO2 150.0 H 244.0 H (80.0-100.0) mmH g ABG HCO3 29.9 H 27.6 H (22-26) mmol/L ABG Base Excess 4.4 H -0.5 (-2.0-2.0) mmol/ L Eliazar Test N/a Pos Hematocrit 23.4 L 27.3 L (42-52) % Hgb O2 Saturation 97.2 (95-100) % Carboxyhemoglobin 2.4 (0.4-20.1) %THgb Methemoglobin 0.9 (0.4-1.5) % Total Hemoglobin 8.9 L (14-18) g/dL O2 Delivery Device Vent Vent FiO2 0.6 100.0 % Tidal Volume 0.45 0.45 PEEP 8.0 8.0 cmH20 Risk Management Professional ID Jlg Jlg Sodium (136-145) mmol/L Potassium (3.5-5.1) mmol/L Chloride (98-107) mmol/L Carbon Dioxide (22-29) mmol/L Anion Gap (5-19) BUN (6-20) mg/dL Creatinine (0.7-1.2) mg/dL GFR Calculation (90-130) mL/min Glucose (65-115) mg/dL Calculated Osmolal ity (285-295) mOsm/k g Lactic Acid (0.5-2.2) mmol/L Calcium (8.5-10.5) mg/dL Total Bilirubin (0.15-1.2) mg/dL AST (0-40) U/L ALT (0-41) U/L Alkaline Phosphata se (40-130) IU/L Troponin T Baselin e (0-15) ng/L NT-Pro-B Natriuret Pep (0-125) pg/mL Total Protein (6.6-8.7) g/dL Albumin (3.5-5.2) g/dL Globulin (1.3-4.6) g/dL 09/03/20 09/03/20 09/03/20 Range/Units 20:37 20:37 20:37 WBC (4.0-10.0) 10^3/ uL RBC (4.1-5.3) 10^6/u L Hgb (11.7-16.6) g/dL Hct (42.0-52.0) % MCV (80-94) fL MCH (28.0-34.0) pg MCHC (30.0-36.0) g/dL RDW (12.1-15.1) % Plt Count (130-400) 10^3/c mm MPV (7.4-10.4) fL Neut % (Auto) % Lymph % (Auto) % [place] % (Auto) % Eos % (Auto) % Baso % (Auto) % Neut # (Auto) (1.8-7.7) 10^3/u L Lymph # (Auto) (0.8-4.8) 10^3/u L [place] # (Auto) (0.2-0.9) 10^3/u L Eos # (Auto) (0.0-0.8) 10^3/u L Baso # (Auto) (0.0-0.1) 10^3/u L Nucleated RBC % (a uto) % Nucleated RBCs # /100WBC PT 13.10 (12.1-14.9) SECO NDS INR 0.96 (0.8-1.2) D-Dimer 2.59 H (0-0.59) ug/mIFE U Specimen Type Sample Site ABG pH (7.35-7.45) ABG pCO2 (35-45) mmHg ABG pO2 (80.0-100.0) mmH g ABG HCO3 (22-26) mmol/L ABG Base Excess (-2.0-2.0) mmol/ L Eliazar Test Hematocrit (42-52) % Hgb O2 Saturation (95-100) % Carboxyhemoglobin (0.4-20.1) %THgb Methemoglobin (0.4-1.5) % Total Hemoglobin (14-18) g/dL O2 Delivery Device FiO2 % Tidal Volume PEEP cmH20 Risk Management Professional ID Sodium 135 L (136-145) mmol/L Potassium 4.2 (3.5-5.1) mmol/L Chloride 91 L (98-107) mmol/L Carbon Dioxide 26 (22-29) mmol/L Anion Gap 22.2 H (5-19) BUN 39 H (6-20) mg/dL Creatinine 7.5 H* (0.7-1.2) mg/dL GFR Calculation 7.6 L (90-130) mL/min Glucose 295 H (65-115) mg/dL Calculated Osmolal ity 300 H (285-295) mOsm/k g Lactic Acid (0.5-2.2) mmol/L Calcium 7.8 L (8.5-10.5) mg/dL Total Bilirubin 0.3 (0.15-1.2) mg/dL AST 42 H (0-40) U/L ALT 20 (0-41) U/L Alkaline Phosphata se 131 H (40-130) IU/L Troponin T Baselin e 910 H* (0-15) ng/L NT-Pro-B Natriuret Pep 45147 H (0-125) pg/mL Total Protein 7.1 (6.6-8.7) g/dL Albumin 3.9 (3.5-5.2) g/dL Globulin 3.2 (1.3-4.6) g/dL 09/03/20 09/03/20 Range/Units 20:37 20:53 WBC (4.0-10.0) 10^3/ uL RBC (4.1-5.3) 10^6/u L Hgb (11.7-16.6) g/dL Hct (42.0-52.0) % MCV (80-94) fL MCH (28.0-34.0) pg MCHC (30.0-36.0) g/dL RDW (12.1-15.1) % Plt Count Cancelled (130-400) 10^3/c mm MPV (7.4-10.4) fL Neut % (Auto) % Lymph % (Auto) % [place] % (Auto) % Eos % (Auto) % Baso % (Auto) % Neut # (Auto) (1.8-7.7) 10^3/u L Lymph # (Auto) (0.8-4.8) 10^3/u L [place] # (Auto) (0.2-0.9) 10^3/u L Eos # (Auto) (0.0-0.8) 10^3/u L Baso # (Auto) (0.0-0.1) 10^3/u L Nucleated RBC % (a uto) % Nucleated RBCs # /100WBC PT (12.1-14.9) SECO NDS INR (0.8-1.2) D-Dimer (0-0.59) ug/mIFE U Specimen Type Sample Site ABG pH (7.35-7.45) ABG pCO2 (35-45) mmHg ABG pO2 (80.0-100.0) mmH g ABG HCO3 (22-26) mmol/L ABG Base Excess (-2.0-2.0) mmol/ L Eliazar Test Hematocrit (42-52) % Hgb O2 Saturation (95-100) % Carboxyhemoglobin (0.4-20.1) %THgb Methemoglobin (0.4-1.5) % Total Hemoglobin (14-18) g/dL O2 Delivery Device FiO2 % Tidal Volume PEEP cmH20 Risk Management Professional ID Sodium (136-145) mmol/L Potassium (3.5-5.1) mmol/L Chloride (98-107) mmol/L Carbon Dioxide (22-29) mmol/L Anion Gap (5-19) BUN (6-20) mg/dL Creatinine (0.7-1.2) mg/dL GFR Calculation (90-130) mL/min Glucose (65-115) mg/dL Calculated Osmolal ity (285-295) mOsm/k g Lactic Acid 3.5 H (0.5-2.2) mmol/L Calcium (8.5-10.5) mg/dL Total Bilirubin (0.15-1.2) mg/dL AST (0-40) U/L ALT (0-41) U/L Alkaline Phosphata se (40-130) IU/L Troponin T Baselin e (0-15) ng/L NT-Pro-B Natriuret Pep (0-125) pg/mL Total Protein (6.6-8.7) g/dL Albumin (3.5-5.2) g/dL Globulin (1.3-4.6) g/dL Critical Care Time Critical Care Time: Critical Care Time: Yes Total Critical Care Time: 40 Attestation: This case had a high probability of a clinically significant, sudden, or life threatening deterioration of this patient's condition which required my full and direct attention, intervention and personal management. Discharge Plan Discharge Patient Disposition: Admitted As Inpatient Admit Provider: Herbie Burns Clinical Impression: Respiratory failure with hypoxia and hypercapnia Qualifiers: Chronicity: acute Qualified Code(s): J96.01 - Acute respiratory failure with hypoxia Pulmonary edema Qualifiers: Chronicity: acute Qualified Code(s): J81.0 - Acute pulmonary edema Condition: Critical Coding Level of Care Code ED Lead Maintenance Technician for g Fwd Exam Problem Focused
--- NOTE | 2020-09-03 22:00 | PM.HP ---
Providers/Chief Complaint Primary Care Provider: Sandy Kelly MD Chief Complaint: SOB History of Present Illness Kt Jett JR is a 55 year old male with history of end-stage renal disease hemodialysis dependent Friday right arm fistula, his last dialysis session was on Friday, he was recently discharged from [facility] after management of bacteremia with MSSA, he also experienced upper GI bleed EGD revealed a bleeder in his esophagus as per his sister, he required 2 to 3 units of blood as well, he was discharged with a midline in his left arm with ceftriaxone 2 g daily. He presented today with chief complaint of shortness of breath. For last few days he has been having shortness of breath, today it got worse he called 911. On arrival of EMS he was hypoxic, he was started on nonrebreather mask on arrival in the ER he was on 15 L nonrebreather mask was somnolent, hence was intubated by the ER physician. ABG revealed acute hypoxia, hypercapnic respiratory failure. Midline was removed because it was coiled and was nonfunctional. He also had an IO which was placed by EMS. During intubation sedating and paralytics were given via IO. I have talked with his sister and the friend as well. Above information has been provided by the next of kin and person to notify which are mentioned in patient demographics. However at the time of my evaluation patient was not sedated of he could not and blink his eyes when asked about shortness of breath and last dialysis session on Friday which he nodded yes. He denied chest pain. Propofol was interrupted because of hypotension and bradycardia he was started on dopamine and fentanyl by the ER physician. I have requested heparin drip because of extremely high troponin however EKG is unremarkable patient is not complaining of chest pain which I was able to ask before we titrated up his fentanyl. Vancomycin and ceftriaxone initiated, blood cultures obtained, heparin protocol Review of Systems General: Reports: ROS unobtainable due to endotracheal tube Medications/Allergies Home Medications Medication Instructions Recorded Confirmed Last Taken Type atorvastatin 20 mg PO QPM 07/13/19 09/03/20 08/29/20 History cyclobenzaprine 10 mg PO TID 07/13/19 09/03/20 08/29/20 History duloxetine 60 mg PO DAILY 07/13/19 09/03/20 08/29/20 History furosemide 40 mg PO BID 07/13/19 09/03/20 08/29/20 History hydrocodone-acetaminophen 1 - 2 tab PO Q6H PRN 07/13/19 09/03/20 08/31/20 History losartan 100 mg PO DAILY 07/13/19 09/03/20 08/29/20 History metoprolol tartrate 50 mg PO BID 07/13/19 09/03/20 08/29/20 History nitroglycerin [Nitrostat] 0.4 mg SUBLINGUAL Q5M PRN 07/13/19 09/03/20 Unknown History pantoprazole 40 mg PO DAILY 07/13/19 09/03/20 Unknown History isosorbide mononitrate 30 mg PO BID #60 tab 07/14/19 09/03/20 08/29/20 Rx insulin degludec 100 unit/mL 30 unit SUBCUT DAILY ml 03/28/20 09/03/20 08/29/20 History subcutaneous solution folic acid 1 mg PO DAILY 08/30/20 09/03/20 08/29/20 History sevelamer carbonate [Renvela] 800 mg PO TID 08/30/20 09/03/20 Unknown History ceftriaxone 2 g IV DAILY 09/03/20 09/03/20 09/03/20 History cyanocobalamin (vitamin B-12) 1,000 mcg PO QMWF 09/03/20 09/03/20 Unknown History [Vitamin B-12] ergocalciferol (vitamin D2) 50,000 unit PO Q7D 09/03/20 09/03/20 Unknown History [Vitamin D2] Allergies Allergy/AdvReac Type Severity Reaction Status Date / Time No Known Allergies Allergy Verified 09/03/20 11:16 PFSH Acute PFSH: Medical History CAD (coronary artery disease) Cardiomyopathy Chronic back pain CKD (chronic kidney disease) Diabetes mellitus Diabetes mellitus, type II End stage renal disease on dialysis ESRD (end stage renal disease) Fibromyalgia GERD (gastroesophageal reflux disease) Hemodialysis access site with arteriovenous graft Hx of staphylococcal infection Hypertension Hypertensive emergency Lumbar disc disease Osteoarthritis Surgical History H/O circumcision History of cataract surgery History of coronary artery stent placement S/P carpal tunnel release S/P tonsillectomy Status post insertion of hemodialysis catheter Status post peritoneal dialysis Family History Mother Aneurysm Grandmother Cancer Sister Cancer Social History Smoking and tobacco status: former smoker Alcohol intake: never Lives independently: Yes Household members: none Housing: House Marital status: service: No Current occupational status: disabled History of recent travel: No Vitals/I&O/Wt Last Vital Signs Temp 98.7 F 09/03/20 20:58 Pulse 83 09/03/20 21:16 Resp 16 09/03/20 21:16 BP 170/82 09/03/20 21:16 Pulse Ox 100 09/03/20 21:16 Weight last 48 hrs Weight 117.934 kg Physical Exam Narrative: EXAM NARRATIVE: Middle-age male, morbid obesity, appears more than stated age Hypotensive and bradycardic currently on dopamine, fentanyl propofol has been interrupted Intubated and sedated S1, S2 distant heart sounds no murmur appreciated Is able to open his eyes on verbal command Able to move his extremities no strokelike symptoms noted Abdomen distended, central obesity no tenderness, sluggish bowel sounds Lower extremity no edema gangrene however noted splinter hemorrhage of right great toe nail, no clubbing or cyanosis Assisted bilateral breath sounds, he saturating 100% PRVC FiO2 50% PEEP 5 tidal volume 550 respiratory rate 14, peak pressure <20 Foot ulcer plantar side of left toe No active cellulitis, Right arm fistula Multiple skin tattoos Urinary Catheter Management^: Barajas: Cath Placed During This Visit: yes Urinary Catheter Date of Insertion: 09/03/20 Urinary Catheter Time of Insertion: 21:00 Data : 09/03/20 20:37 09/03/20 20:37 Micro: Microbiology 09/03/20 20:53 Blood Culture - Preliminary Blood SPECIMEN COLLECTED A&P Assessment and plan (1) Respiratory failure with hypoxia and hypercapnia: Acute hypoxic hypercapnic restaurant failure secondary to fluid overload with underlying end-stage renal disease Ejection fraction is 50 to 55% not complaining of active chest pain abnormal troponin noted started on heparin protocol, noticed high D-dimer Intubated and sedated in the ER because of increased respiratory distress Chest x-ray consistent with pulmonary edema however no signs of congestion, no leukocytosis he is afebrile Status: Acute Qualifiers: Chronicity: acute Qualified Code(s): J96.01 - Acute respiratory failure with hypoxia; J96.02 - Acute respiratory failure with hypercapnia (2) Pulmonary edema: Secondary to fluid overload with underlying end-stage renal disease management as mentioned above Status: Acute Qualifiers: Chronicity: acute Qualified Code(s): J81.0 - Acute pulmonary edema (3) End stage renal disease on dialysis: Consulted nephro Status: Acute Additional A&P Information Upper GI bleed: He was recently discharged from the [facility] on Friday, required 2 to 3 units of PRBC for esophageal bleed which was found on EGD, currently hemoglobin 8.3 continue heparin and will discontinue if hemoglobin drops MSSA bacteremia: Rule endocarditis noted splinter hemorrhage of right great toe, request echo in the morning, if he shows consistent bacteremia or febrile episodes would recommend transesophageal echo as well Continue vancomycin and ceftriaxone empiric treatment Blood cultures obtained High troponin without active chest pain or ischemic or infarctive changes on EKG Type 2 diabetes: Accu-Cheks every 6 hours while intubated continue his feeding tube diet in the morning give him bowel rest tonight N.p.o. will need tube feeding if he stays intubated for more than 24 hours Full code DVT prophylaxis not indicated currently on heparin protocol Sister updated Prognosis guarded Attestations Medical Necessity Statement*: Anticipating stay in the hospital course more than 2 midnights for primary edema respiratory failure currently intubated and sedated Time Spent in Patient Care: (>than 50% of time spent in counselling and/or direct pt care on unit). 50mins Coding Level of Care Code Acute Alligator Shear Operator for Chg Fwd Diagnoses Respiratory failure with hypoxia and hypercapnia J96.01; J96.02 Chronicity: acute Pulmonary edema J81.0 Chronicity: acute End stage renal disease on dialysis N18.6; Z99.2
[2020-09-03 22:25] LABS: ABG PCO2 49.1 mmHg (35-45); ABG PH Result 7.39 (7.35-7.45); Arterial Blood Gas Hematocrit 23.4 % (42-52); Base Excess ABG 4.4 mmol/L (-2.0-2.0); Blood Gas Sample Site Brachial, left; Blood Gas Sample Type Arterial; Blood Gas Tidal Volume 0.45; Fractionated Inspired Oxygen 0.6 %; HCO3 ABG 29.9 mmol/L (22-26); Oxygen Device VENT
[2020-09-03] MEDS: DOPamine drip 400 MG/250 ML PREMIX 22.1 MG IV (22:48)
[2020-09-03 22:57] LABS: Reflex Lactate Order REFLEX LACTIC ORDERD
[2020-09-03] MEDS: FUROsemide 10 mg/mL SDV 4mL 40 MG IVP (23:44)
[2020-09-03] MEDS: cefTRIAXone 2,000 MG in sodium chloride 0.9% (plus) 50 ML 50 MG IV (23:52)
[2020-09-03 23:56] LABS: Troponin 5 2HR 970.8 ng/L (0-15); Troponin 5 2HR Delta 60.8 ABS# (0-10)
--- NOTE | 2020-09-03 23:56 | PC.PHAR ---
Vancomycin is dosed at 1250mg IVPB every 48 hours to produce a predicted trough level of 14.48. A trough level has been ordered from the lab to be obtained before the fourth dose to confirm and adjust if needed.
[2020-09-04] VITALS (76 sets, daily range): BP systolic 88–203; BP diastolic 45–93; PULSE 56–96; RESP 13–25; TEMP 36.6–38.7; O2SAT 94–100
[2020-09-04] MEDS: heparin 5,000 unit/mL INJ 1 mL IV (00:07)
[2020-09-04 00:15] LABS: C Reactive Protein 4.8 mg/L (0.0-4.9); Lactate Dehydrogenase 332 U/L (135-225)
[2020-09-04] MEDS: heparin drip 25,000 UNIT/500 ML PREMIX 33 UNIT IV (00:15)
[2020-09-04 01:04] LABS: Erythrocyte Sedimentation Rate 69 mm/hr (0-10)
--- NOTE | 2020-09-04 01:15 | PC.NURSE ---
Admit Note arrived to unit intubated, RT at bedside and placed on mechanical ventilator. pt is awake and following simple commands. Placed on bedside monitor worker. Pt arrived with infusions of dopamine at 2.5mcg/kg/min, Heparin gtt at 33ml/hr, and fentanyl at 50mcg. During repositioning after transferring from [facility], pink tinged emesis with chunks of food expelled from mouth. ET suction aspirate of similar color. Lung meier coarse with crackles and diminished coarse to bilateral bases.
--- NOTE | 2020-09-04 01:43 | PC.NURSE ---
Dr. Burns notified of high bp 160's-180's systolic. Notified of findings of chunky vomit coming out of mouth with reposition and similiar looking suctioning from ET tube. Pt gagging on ET tube at this time. Received verbal orders to restart propofol gtt and add zofran 4mg Q6 ivp prn.
[2020-09-04] MEDS: vancomycin 1,250 MG/250 ML PIGGYBACK 200 MG IV (01:55)
--- NOTE | 2020-09-04 02:02 | PC.NURSE ---
Admission information obtained from Elis Jones, sister. Reports patient is Gnosticist and does not accept blood products. Reports Malini blanc neighbor could bring updated medication list and advanced directive tomorrow.
--- NOTE | 2020-09-04 02:12 | ECG_ITS ---
[facility] Test Date: 2020-09-04 Pat Name: Kt Jett Department: Room: ICU12 Gender: Male B2B Sales Consultant: : 1965 Requested By: Miguel Lopez Order Number: [id number] Veronica MD: Meaghan Casey M.D. Measurements Intervals Molino Rate: 61 P: 19 OK: 199 QRS: 106 QRSD: 129 T: 131 QT: 530 QTc: 537 Interpretive Statements SINUS RHYTHM POSSIBLE RIGHT VENTRICULAR HYPERTROPHY MODERATE T-WAVE ABNORMALITY, CONSIDER ANTEROLATERAL ISCHEMIA Compared to ECG 09/03/2020 20:29:02 T-wave abnormality now present Possible ischemia now present Intraventricular conduction delay no longer present Electronically Signed On 09-05-2020 6:13:48 BROADCAST DESIGNER by Meaghan Casey M.D. [id number]
[2020-09-04 02:19] LABS: Basophils % 0.5 %; Eosinophils # 0.2 10^3/uL (0.0-0.8); Eosinophils % 1.9 %; Hematocrit 24.7 % (42.0-52.0); Hemoglobin 7.6 g/dL (11.7-16.6); Lymphocytes # 0.4 10^3/uL (0.8-4.8); Lymphocytes % 4.5 %; Mean Corpuscular HGB Conc 30.8 g/dL (30.0-36.0); Mean Corpuscular Hemoglobin 33.2 pg (28.0-34.0); Mean Corpuscular Volume 107.9 fL (80-94); Mean Platelet Volume 10.2 fL (7.4-10.4); Monocytes # 0.1 10^3/uL (0.2-0.9); Monocytes % 1.2 %; Neutrophils % 91.5 %; Nucleated Red Blood Cells % 0 %; Platelet Count 195 10^3/cmm (130-400); Red Blood Count 2.29 10^6/uL (4.1-5.3); Red Cell Distribution Width 18.1 % (12.1-15.1); White Blood Count 8.5 10^3/uL (4.0-10.0)
--- NOTE | 2020-09-04 02:38 | PC.NURSE ---
Bradycardia/hypotension after resuming propofol drip hanging from ER. Notified and received orders to discontinue propofol and add versed gtt.
[2020-09-04 02:42] LABS: Lactic Acid level (Lactate) 0.9 mmol/L (0.5-2.2)
[2020-09-04 02:42] LABS: Anion Gap 19.2 (5-19); Blood Urea Nitrogen 45 mg/dL (6-20); Calcium 7.5 mg/dL (8.5-10.5); Carbon Dioxide 29 mmol/L (22-29); Chloride 91 mmol/L (98-107); Glucose 206 mg/dL (65-115); Osmolality Calculated 298 mOsm/kg (285-295); Potassium 4.2 mmol/L (3.5-5.1); Sodium 135 mmol/L (136-145)
[2020-09-04 05:15] LABS: ABG PCO2 47.5 mmHg (35-45); ABG PH Result 7.41 (7.35-7.45); Blood Gas Operator Identificat JB; Blood Gas Sample Site Brachial, left; Blood Gas Sample Type Arterial; Blood Gas Tidal Volume 0.45; HCO3 ABG 30.2 mmol/L (22-26); Oxygen Device VENT; PO2 ABG 81.8 mmHg (80.0-100.0)
[2020-09-04 05:50] LABS: Glucose Point of Care 178 mg/dL (70-110)
[2020-09-04 06:23] LABS: Partial Thromboplastin Time 130.9 SECONDS (23.9-36.7)
[2020-09-04] MEDS: sevelamer 800 mg Tablet PO ×2 (08:53→22:46)
--- NOTE | 2020-09-04 09:38 | PC.CHAP ---
Pastoral Care Encounter/Spiritual Assessment Type of Contact [] Declined automobile bumper straightener visit [] Patient/Family/Request visit [] Outpatient visit [] Follow-up visit [] Physician referral [] Code/Alert [x] Routine visit [] Staff referral [] Actively dying [] Patient sleeping [] Family support [] [] Out of room [] Palliative care [] [] Receiving care in room [] Pre-surgical visit [] Trauma [] Long length of stay [x] ICU visit [] Other: Relational/Emotional Strength [] Patient feels connected with others/family/visitors/staff [] Distress [] Loneliness/isolation [] Abandonment Spirituality of Patient [] Person of Jana [] Attends Temple of their Jana [] Believes in Prayer [] Reads Bible or Jewish materials [] There are Spiritual issues to be addressed Sap Integration Architect Interventions [x] Prayer [] Active listening [] Non-anxious presence [] Spiritual/emotional support [] Crisis/trauma care [] Spiritual counseling [] Bereavement support [] Provided bereavement packet [] Provided Bible/devotional materials [] Provided toy/stuffed animal, coloring book to patient or family member [] Provided Communion [] Anointing/[place] [] Salvation [x] Completed spiritual assessment [] Other: Impact on Illness or Injury [] Angry [] Fearful [] Anxious [] Often cries [] Exhaustion [] Unable to work [] Unable to attend jain [] Unable to walk/stand [] Unable to read [] Unable to drive [] Unable to eat/drink [] Unable to sleep [] Unable to be with family [] Patient intubated [] Other: Summary Time spent with patient
[2020-09-04 09:50] LABS: Glucose Point of Care 264 mg/dL (70-110)
[2020-09-04 11:04] LABS: SARS Covid-2 Antigen Negative (Negative)
[2020-09-04] MEDS: acetaminophen 325 mg Tablet 650 MG PO (11:31)
[2020-09-04 11:32] LABS: Glucose Point of Care 166 mg/dL (70-110)
[2020-09-04 14:41] LABS: Partial Thromboplastin Time 183.7 SECONDS (23.9-36.7)
--- NOTE | 2020-09-04 15:02 | P.CONIM_ITS ---
Providers/Reason For Consult Consulting Physican/Specialty*: Nephro Reason for Consult*: Eval for ESRD mgmt Attending Physician: Karyn Rehman MD Primary Care Provider: Sandy Kelly MD History of Present Illness History of Present Illness Kt Jett JR is a 55 year old male who presents to our facility with increasing shortness of breath, despite high flow high-dose oxygen on a nonrebreather mask, he was intubated as he was acutely hypoxic and hypercapnic. He was transiently on dopamine and fentanyl and he was found to have an elevation in serum troponin. He is hemodynamically more robust now. Chest x- ray demonstrates bilateral infiltrates consistent with pulmonary edema, possible pneumonia. He is a dialysis patient, on dialysis Friday, Friday, Friday. He was dialyzed on Friday. He has a right arm fistula. He was recently admitted to [facility] in [place] with bacteremia, MSSA, GI bleed status post multiple units of blood. I am unable to take any additional history from him as he is intubated and mechanically ventilated. Review of Systems General: Reports: ROS unobtainable due to medical condition Meds/Allergies Home Medications and Allergies Home Medications Medication Instructions Recorded Confirmed Last Taken Type atorvastatin 20 mg PO QPM 07/13/19 09/04/20 08/29/20 History cyclobenzaprine 10 mg PO TID 07/13/19 09/04/20 08/29/20 History duloxetine 60 mg PO DAILY 07/13/19 09/04/20 08/29/20 History furosemide 40 mg PO BID 07/13/19 09/04/20 08/29/20 History hydrocodone-acetaminophen 1 - 2 tab PO Q6H PRN 07/13/19 09/04/20 08/31/20 History losartan 100 mg PO DAILY 07/13/19 09/04/20 08/29/20 History metoprolol tartrate 50 mg PO BID 07/13/19 09/04/20 08/29/20 History nitroglycerin [Nitrostat] 0.4 mg SUBLINGUAL Q5M PRN 07/13/19 09/04/20 Unknown History pantoprazole 40 mg PO DAILY 07/13/19 09/04/20 Unknown History isosorbide mononitrate 30 mg PO BID #60 tab 07/14/19 09/04/20 08/29/20 Rx insulin degludec 100 unit/mL 30 unit SUBCUT DAILY ml 03/28/20 09/04/20 08/29/20 History subcutaneous solution folic acid 1 mg PO DAILY 08/30/20 09/04/20 08/29/20 History sevelamer carbonate [Renvela] 800 mg PO TID 08/30/20 09/04/20 Unknown History ceftriaxone 2 g IV DAILY 09/03/20 09/04/20 09/03/20 History cyanocobalamin (vitamin B-12) 1,000 mcg PO QMWF 09/03/20 09/04/20 Unknown History [Vitamin B-12] ergocalciferol (vitamin D2) 50,000 unit PO Q7D 09/03/20 09/04/20 Unknown History [Vitamin D2] cyanocobalamin (vitamin B-12) 1,000 mcg IM EVERY OTHER DAY 09/04/20 09/04/20 Unknown History doxazosin 2 mg PO DAILY 09/04/20 09/04/20 Unknown History vit B,L-YL-xeaw-selen-vit D3-E 1 tab PO DAILY 09/04/20 09/04/20 Unknown History [RenaPlex-D] Allergies Allergy/AdvReac Type Severity Reaction Status Date / Time No Known Allergies Allergy Verified 09/03/20 11:16 Current Medications Current Medications Generic Name Dose Route Start Last Admin Trade Name Freq PRN Reason Stop Dose Admin Acetaminophen 650 mg 09/04/20 11:19 09/04/20 11:31 Acetaminophen 325 Mg Tablet PO 650 mg Q4H PRN Administration MILD PAIN OR INCREASE TEMP Furosemide 40 mg 09/03/20 23:22 09/03/20 23:44 Furosemide 10 Mg/Ml Sdv 4ml IVP 40 mg Q24H NATHANAEL Administration Heparin Sodium (Beef Lung) 0 unit 09/03/20 23:22 09/04/20 00:07 Heparin 5,000 Unit/Ml Inj 1 Ml IV 5,900 unit PRN PRN Administration Heparin weight-base protocol Protocol Fentanyl 1,000 mcg/ Sodium 100 mls @ 0 mls/hr 09/03/20 20:15 09/04/20 09:47 Chloride IV 75 mcg/hr .Q0M NATHANAEL 7.5 mls/hr Titration Protocol Per Protocol Dopamine HCl/Dextrose 400 mg in 250 mls @ 22.113 mls/hr 09/03/20 22:30 09/04/20 05:55 Intropin Drip IV 0 mcg/kg/min CONT NATHANAEL 0 mls/hr Titration Protocol 5 MCG/KG/MIN Heparin Sodium/Sodium Chloride 25,000 unit in 500 mls @ 0 mls/hr 09/03/20 23:22 09/04/20 14:49 Heparin Drip IV 0 unit/kg/hr .Q0M NATHANAEL 0 mls/hr Titration Protocol Per Protocol Ceftriaxone Sodium 2,000 mg/ 50 mls @ 50 mls/hr 09/03/20 23:45 09/04/20 01:15 Sodium Chloride IV Infused Q24H NATHANAEL Infusion Vancomycin/PEG/NADA/Lysine/Water 1,250 mg in 250 mls @ 250 mls/hr 09/04/20 01:00 09/04/20 03:10 Vancocin IV Infused Q48H NATHANAEL Infusion Midazolam HCl 100 mg/ Sodium 100 mls @ 0 mls/hr 09/04/20 02:45 09/04/20 02:58 Chloride IV 2 mg/hr .Q0M NATHANAEL 2 mls/hr Administration Protocol Per Protocol Sevelamer Carbonate 800 mg 09/04/20 09:00 09/04/20 08:53 Sevelamer 800 Mg Tablet PO 800 mg TID NATHANAEL Administration PFSH Acute PFSH: Medical History CAD (coronary artery disease) Cardiomyopathy Chronic back pain CKD (chronic kidney disease) Diabetes mellitus Diabetes mellitus, type II End stage renal disease on dialysis ESRD (end stage renal disease) Fibromyalgia GERD (gastroesophageal reflux disease) Hemodialysis access site with arteriovenous graft Hx of staphylococcal infection Hypertension Hypertensive emergency Lumbar disc disease Osteoarthritis Surgical History H/O circumcision History of cataract surgery History of coronary artery stent placement S/P carpal tunnel release S/P tonsillectomy Status post insertion of hemodialysis catheter Status post peritoneal dialysis Family History Mother Aneurysm Grandmother Cancer Sister Cancer Social History Smoking and tobacco status: former smoker Alcohol intake: never Lives independently: Yes Household members: none Housing: House Marital status: service: No Current occupational status: disabled History of recent travel: No Vitals/I&O/Wt Last Vital Signs Temp 100.9 F H 09/04/20 13:15 Pulse 56 L 09/04/20 14:00 Resp 14 09/04/20 14:00 BP 118/62 09/04/20 14:00 Pulse Ox 95 09/04/20 14:00 09/04/20 09/04/20 09/04/20 06:59 14:59 22:59 Intake Total 656.978 / 675.705 264 / 264 Output Total 100 / 100 Balance 556.978 / 575.705 264 / 264 Weight last 48 hrs Weight 117.979 kg Weight 117.934 kg Physical Exam Narrative: EXAM NARRATIVE: Constitutional: Sedated and vented HEENT: Wet mucosa, no jvp, non icteric Lungs: Bilaterally clear without discernible wheeze, rales in all lung zones CVS: S1 S2, no murmurs Abdo: Soft, BS ok Ext 4: Minimal edema, peripheral perfusion with no cyanosis Urinary Catheter Management^: Barajas: Cath Placed During This Visit: yes Reason for Continuing Indwelling Catheter: Accurate Measurement of Urinary Output in Critically Ill Patients Urinary Catheter Date of Insertion: 09/03/20 Urinary Catheter Time of Insertion: 21:00 Data Micro: Micro: Microbiology 09/04/20 12:00 Blood Culture - Pr eliminary Blood [facility] 09/04/20 11:50 Blood Culture - Pr eliminary Blood [facility] 09/03/20 23:17 Blood Culture - Pr eliminary Blood [facility] 09/03/20 20:53 Blood Culture - Pr eliminary Blood [facility] A&P Additional A&P Information 1. ESRD. Given overt pulmonary congestion, he will need dialysis today, 3K bath, 3 L ultrafiltration. I will evaluate him for additional need for dialysis tomorrow. Dose medications for GFR less than 15 on dialysis. 2. Vent dependent respiratory failure. Dialysis will help i.e. ultrafiltration to relieve some vascular congestion Broad-spectrum antibiotics to cover for potential pneumonia. Vent management per ICU team. 3. Chemistry. Serum chemistry looks mildly aberrant, noncritical, we will continue to follow. 4. Hemodynamics. Temporarily on dopamine overnight, however this was titrated off and his blood pressures remained stable. Will monitor hemodynamics closely during hospital stay especially during dialysis. 5. Anemia Will load with Procrit and check iron levels Thank you for our involvement in her care, as always it is a pleasure to follow these patients with you John Valentin MD Nephrology [phone] Patient seen and examined via telemedicine, with the assistance of the bedside RN > 25 min spent in evaluation and mgmt of patient Coding Level of Care Code Acute Bobbin Collector for Thomas Keen
[2020-09-04 16:01] LABS: Iron 44 ug/dL (59-158); Percent Saturation 18.8 % (20-50); Total Iron Binding Capacity 234 mcg/dl; Unsaturated Iron Binding 190 ug/dL (112-347)
--- NOTE | 2020-09-04 17:53 | P.PN_ITS ---
Subjective Subjective: Interval history: labs reveiwed, undergoing HD today Medications: Reviewed: Yes Vitals/I&O/Wt Last Vital Signs Temp 99.0 F 09/04/20 16:30 Pulse 69 09/04/20 16:30 Resp 20 H 09/04/20 17:44 BP 189/91 09/04/20 16:30 Pulse Ox 100 09/04/20 16:30 09/04/20 09/04/20 09/04/20 06:59 14:59 22:59 Intake Total 656.978 / 675.705 264 / 264 28.067 / 292.067 Output Total 100 / 100 Balance 556.978 / 575.705 264 / 264 28.067 / 292.067 Weight last 48 hrs Weight 117.979 kg Weight 117.934 kg Physical Exam Narrative: EXAM NARRATIVE: GEN: seadted, intubated CVS: S1S2 N RS: CTA B/L except crackles over RUL Abd: Soft, nt/nd , bs+ SUPERVISOR SCOURING PADS: no focal neuro deficits Urinary Catheter Management^: Barajas: Cath Placed During This Visit: yes Reason for Continuing Indwelling Catheter: Accurate Measurement of Urinary Output in Critically Ill Patients Urinary Catheter Date of Insertion: 09/03/20 Urinary Catheter Time of Insertion: 21:00 Data : 09/04/20 02:14 09/04/20 02:14 Micro: Microbiology 09/04/20 12:00 Blood Culture - Preliminary Blood SPECIMEN COLLECTED 09/04/20 11:50 Blood Culture - Preliminary Blood SPECIMEN COLLECTED 09/03/20 23:17 Blood Culture - Preliminary Blood SPECIMEN COLLECTED 09/03/20 20:53 Blood Culture - Preliminary Blood SPECIMEN COLLECTED A&P Assessment and plan (1) Respiratory failure with hypoxia and hypercapnia: Acute hypoxic hypercapnic restaurant failure secondary to fluid overload with underlying end-stage renal disease Ejection fraction is 50 to 55% not complaining of active chest pain abnormal tro ponin noted started on heparin protocol, noticed high D-dimer Intubated and sedated in the ER because of increased respiratory distress Chest x-ray consistent with pulmonary edema however no signs of congestion, no leukocytosis he is afebrile Status: Acute Qualifiers: Chronicity: acute Qualified Code(s): J96.01 - Acute respiratory failure with hypoxia; J96.02 - Acute respiratory failure with hypercapnia (2) Pulmonary edema: Secondary to fluid overload with underlying end-stage renal disease manag ement as mentioned above Status: Acute Qualifiers: Chronicity: acute Qualified Code(s): J81.0 - Acute pulmonary edema (3) End stage renal disease on dialysis: Consulted nephro Status: Acute Additional A&P Information Upper GI bleed: He was recently discharged from the [facility] on Friday, required 2 to 3 units of PRBC for esophageal bleed which was found on EGD, currently hemoglobin 8.3 continue heparin and will discontinue if hemoglobin drops MSSA bacteremia: Rule endocarditis noted splinter hemorrhage of right great toe, request echo in the morning, if he shows consistent bacteremia or febrile episodes would recommend transesophageal echo as well Continue vancomycin and ceftriaxone empiric treatment Blood cultures obtained High troponin without active chest pain or ischemic or infarctive changes on EKG Type 2 diabetes: Accu-Cheks every 6 hours while intubated continue his feeding tube diet in the morning give him bowel rest tonight N.p.o. will need tube feeding if he stays intubated for more than 24 hours Full code DVT prophylaxis not indicated currently on heparin protocol Sister updated Prognosis guarded Attestations Medical Necessity Statement*: blood cx from prt and periphery, NSTEMI on heparin drip, obtain old records from [facility] and [facility], continue mech vent, weaning tril in am, HD today Coding Level of Care Code Acute Aircraft Electrician for Chg Fwd Diagnoses Respiratory failure with hypoxia and hypercapnia J96.01; J96.02 Chronicity: acute Pulmonary edema J81.0 Chronicity: acute End stage renal disease on dialysis N18.6; Z99.2
[2020-09-04 18:36] LABS: Glucose Point of Care 127 mg/dL (70-110)
[2020-09-04 19:08] LABS: Partial Thromboplastin Time 42.5 SECONDS (23.9-36.7)
[2020-09-04] MEDS: heparin drip 25,000 UNIT/500 ML PREMIX 27 UNIT IV (19:25)
[2020-09-04] MEDS: cefTRIAXone 2,000 MG in sodium chloride 0.9% (plus) 50 ML 50 MG IV (22:46)
[2020-09-04] MEDS: FUROsemide 10 mg/mL SDV 4mL 40 MG IVP (22:47)
--- NOTE | 2020-09-04 23:22 | USCV_ITS ---
Kt Jett Age: 55 Gender: M : 1965 Exam Date: 09/04/2020 05:24 Ordering Phys: Herbie Burns MD Technologist: Shayy Peres [place] [facility] [place] CHF ON VENT AT THIS TIME BP: 146 / 68 HR: 61 Rhythm: Sinus Technical Quality: Adequate MEASUREMENTS (Male / Female) Normal Values 2D ECHO LV Diastolic Diameter PLAX 4.5 cm 4.2 - 5.9 / 3.9 - 5.3 cm LV Systolic Diameter PLAX 3.8 cm LV Chamber Size 3.2 cm IVS Diastolic Thickness 1.3 cm 0.6 - 1.0 / 0.6 - 0.9 cm IVS Systolic Thickness 1.2 cm LVPW Diastolic Thickness 2.2 cm 0.6 - 1.0 / 0.6 - 0.9 cm LVPW Systolic Thickness 1.9 cm RV Chamber Size 0.0 cm LVOT Diameter 2.0 cm LV Ejection Fraction 2D Teich 34.3 % LV Ejection Fraction MOD 2C 30.1 % LV Ejection Fraction 2C AL 29.3 % LA Diameter 4.7 cm LA Width 3.9 cm LA Height 4.5 cm RA Width 4.1 cm RA Height 4.6 cm Aorta at Sinotubular Diameter 3.4 cm M-MODE LV Diastolic Diameter MM 5.1 cm 4.2 - 5.9 / 3.9 - 5.3 cm LV Systolic Diameter MM 3.6 cm LV Ejection Fraction MM Teich 57.4 % IVS Diastolic Thickness MM 1.3 cm 0.6 - 1.0 / 0.6 - 0.9 cm IVS Systolic Thickness MM 2.2 cm LVPW Diastolic Thickness MM 1.8 cm 0.6 - 1.0 / 0.6 - 0.9 cm LVPW Systolic Thickness MM 2.3 cm RV Diastolic Diameter MM 1.9 cm Aortic Annulus Diameter 1.8 cm LA Ao Ratio MM 1.5 MV E Point Septal Separation 0.9 cm DOPPLER AV Peak Velocity 178.0 cm/s LVOT Peak Velocity 116.3 cm/s AV Area Cont Eq vti 2.1 cm squared AV Area Cont Eq pk 2.1 cm squared MV Area PHT 4.1 cm squared Mitral E to A Ratio 1.1 MV E' Velocity 49.0 cm/s Mitral E to MV E' Ratio 10.0 Mitral E to LV E' Lateral Ratio 10.8 Mitral E to LV E' Septal Ratio 9.5 TR Peak Velocity 212.7 cm/s TR Peak Gradient 18.1 mmHg TR Mean Velocity 181.4 cm/s TR Mean Gradient 14.8 mmHg TR Velocity Time Integral 65.6 cm TV Peak E Velocity 63.0 cm/s Right Atrial Pressure 15.0 mmHg Pulmonary Artery Systolic Pressu 33.1 mmHg PV Peak Velocity 91.0 cm/s RV Acceleration Time 0.2 s RV Ejection Time 0.4 s RV AcT/ET 0.5 FINDINGS Left Ventricle Normal left ventricular size. Grossly LV systolic function is mildly reduced. Regional wall motion abnormalities can not be ruled out because of limited visualization. Right Ventricle The right ventricle is grossly normal Right Atrium The right atrium is normal in size. Left Atrium The left atrium is mildly dilated Mitral Valve Thickened mitral valve. There is no mitral regurgitation. Aortic Valve Aortic valve is thickened. No significant stenosis is seen. There is no aortic regurgitation. Tricuspid Valve Structurally normal tricuspid valve without significant stenosis or regurgitation. Insufficient TR jet to calculate RVSP. Pulmonic Valve Grossly normal Pericardium Normal pericardium without effusion. Aorta Normal ascending aorta dimension. CONCLUSIONS This is a technically limited study. Grossly LV systolic function is mildly reduced. Regional wall motion abnormalities can not be ruled out because of limited visualization No siginificant valvular heart disease. Compared to prior echocardiogram from 07/11/2021, LV systolic function appears to be slightly reduced, however this is limited quality echocardiogram. Ever Parekh MD (Electronically Signed) Final Date: 04 September 2020 18:55 S
[2020-09-05] VITALS (48 sets, daily range): BP systolic 91–183; BP diastolic 43–105; PULSE 53–84; RESP 13–30; TEMP 36.4–38.4; O2SAT 94–100
[2020-09-05] MEDS: acetaminophen 325 mg Tablet 650 MG PO ×2 (01:25→05:28)
[2020-09-05 01:27] LABS: Glucose Point of Care 132 mg/dL (70-110)
[2020-09-05 01:49] LABS: Partial Thromboplastin Time 75.4 SECONDS (23.9-36.7)
[2020-09-05 04:36] LABS: ABG PCO2 47.1 mmHg (35-45); Blood Gas Allen Test Pos; Blood Gas Sample Site Radial, right; Blood Gas Sample Type Arterial; Blood Gas Tidal Volume 0.45; HCO3 ABG 29.3 mmol/L (22-26); Oxygen Device VENT; PO2 ABG 94.6 mmHg (80.0-100.0)
[2020-09-05 05:36] LABS: Basophils % 0.6 %; Eosinophils # 0.3 10^3/uL (0.0-0.8); Eosinophils % 5.7 %; Hematocrit 21.3 % (42.0-52.0); Lymphocytes # 0.8 10^3/uL (0.8-4.8); Lymphocytes % 17.5 %; Mean Corpuscular Hemoglobin 33.3 pg (28.0-34.0); Mean Corpuscular Volume 110.9 fL (80-94); Mean Platelet Volume 10.6 fL (7.4-10.4); Monocytes # 0.5 10^3/uL (0.2-0.9); Monocytes % 10.1 %; Neutrophils # 3.11 10^3/uL (1.8-7.7); Neutrophils % 65.9 %; Nucleated Red Blood Cells % 0 %; Platelet Count 143 10^3/cmm (130-400); Red Blood Count 1.92 10^6/uL (4.1-5.3); Red Cell Distribution Width 17.5 % (12.1-15.1); White Blood Count 4.7 10^3/uL (4.0-10.0)
[2020-09-05 06:01] LABS: Anion Gap 13.7 (5-19); Blood Urea Nitrogen 29 mg/dL (6-20); Calcium 7.5 mg/dL (8.5-10.5); Carbon Dioxide 28 mmol/L (22-29); Chloride 98 mmol/L (98-107); Glomerular Filtration Rate 8.6 mL/min (90-130); Glucose 122 mg/dL (65-115); Osmolality Calculated 289 mOsm/kg (285-295); Potassium 3.7 mmol/L (3.5-5.1); Sodium 136 mmol/L (136-145)
--- NOTE | 2020-09-05 06:05 | P.PN_ITS ---
Subjective Subjective: Interval history: Older records from [facility] reviewed. Admitted there on 08/16/20-08/29 with acute hypoxic hypercapneic respiratory failure. troponin upon admission there was at 170. Initially treated for hypertensive urgency. Underwent urgent HD, extubated on 08/17. 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 MSSA bacteremia and MSSA pneumonia noted on discharge summary. Blood cx + 08/17 with MSSA s/t oxacillin, vanc, doxy, clinda (bactrim N/A, linezolid N/a). Unable to ascertain date of cleranace of bacteremia. 08/19 Lumbar MRI: no signs of discitis, only inflammatory changes noted 08/19 CTA chest abdomen pelvis: Bibasilar atelactasis, no effusion or empyema. Abdomen without focal collections. 08/17: TTE: LV cavity dilated, LVEF 47%, hypokinetic mid apicallateral wall, indeterminate diastolic function, RV normal. Patient has port in place since 4 years, unclear indication. Uncertain why he had a midline placed in the presence of a functional port. Planned for 14 days of iv ceftriaxone for MSSA bacteremia, UTI, pneumonia per records. Had NSTEMI(trop trend [id number]), on ASA, plavix, cardiology was consulted. Hb dropped to 6.7, for which he underwent EGD as above. Heparin infusion was discontinued. Did not get transfused as he is Anabaptism. Hb dropped to as low as 5.0 during this admission. Was getting procrit with HD. He had been planned for VJ and LHC by cardiology but this was eventually deferred due to GI bleeding. Subjective today: intubated, febrile to 101F , hb 7.6 Medications: Reviewed: Yes Vitals/I&O/Wt Last Vital Signs Temp 101.1 F H 09/05/20 05:24 Pulse 64 09/05/20 04:00 Resp 15 09/05/20 05:26 BP 109/46 09/05/20 04:00 Pulse Ox 97 09/05/20 04:00 09/04/20 09/04/20 09/05/20 14:59 22:59 06:59 Intake Total 264 / 264 89.984 / 353.984 325.45 / 679.434 Output Total 100 / 100 100 / 200 Balance 264 / 264 -10.016 / 253.984 225.45 / 479.434 Weight last 48 hrs Weight 116.483 kg Weight 117.979 kg Weight 117.934 kg Physical Exam Narrative: EXAM NARRATIVE: GEN: Intubated, sedated CVS: S1S2 N RS: CTA B/L Abd: Soft, nt/nd , bs+ MACHINE PRECISION ENGRAVER: unable to ascertain Urinary Catheter Management^: Barajas: Cath Placed During This Visit: yes Reason for Continuing Indwelling Catheter: Accurate Measurement of Urinary Output in Critically Ill Patients Urinary Catheter Date of Insertion: 09/03/20 Urinary Catheter Time of Insertion: 21:00 Data : 09/05/20 05:12 09/05/20 05:12 Micro: Microbiology 09/03/20 23:17 Blood Culture - Preliminary Blood NEGATIVE TO DATE 09/03/20 20:53 Blood Culture - Preliminary Blood NEGATIVE TO DATE 09/04/20 12:00 Blood Culture - Preliminary Blood SPECIMEN COLLECTED 09/04/20 11:50 Blood Culture - Preliminary Blood SPECIMEN COLLECTED Attestation for Other Data: I personally reviewed and interpreted the following: Other data: Laboratory Results WBC 4.7 10^3/uL (4.0-10.0) 09/05/20 05:12 RBC 1.92 10^6/uL (4.1-5.3) L 09/05/20 05:12 Hgb 6.4 g/dL (11.7-16.6) L* 09/05/20 05:12 Hct 21.3 % (42.0-52.0) L 09/05/20 05:12 MCV 110.9 fL (80-94) H 09/05/20 05:12 MCH 33.3 pg (28.0-34.0) 09/05/20 05:12 MCHC 30.0 g/dL (30.0-36.0) 09/05/20 05:12 RDW 17.5 % (12.1-15.1) H 09/05/20 05:12 Plt Count 143 10^3/cmm (130-400) 09/05/20 05:12 MPV 10.6 fL (7.4-10.4) H 09/05/20 05:12 Neut % (Auto) 65.9 % 09/05/20 05:12 Lymph % (Auto) 17.5 % 09/05/20 05:12 Yancey % (Auto) 10.1 % 09/05/20 05:12 Eos % (Auto) 5.7 % 09/05/20 05:12 Baso % (Auto) 0.6 % 09/05/20 05:12 Neut # (Auto) 3.11 10^3/uL (1.8-7.7) 09/05/20 05:12 Lymph # (Auto) 0.8 10^3/uL (0.8-4.8) 09/05/20 05:12 Yancey # (Auto) 0.5 10^3/uL (0.2-0.9) 09/05/20 05:12 Eos # (Auto) 0.3 10^3/uL (0.0-0.8) 09/05/20 05:12 Baso # (Auto) 0.0 10^3/uL (0.0-0.1) 09/05/20 05:12 Nucleated RBC % (auto) 0 % 09/05/20 05:12 Nucleated RBCs # 0.0 /100WBC 09/05/20 05:12 ESR 69 mm/hr (0-10) H 09/03/20 20:37 PT 13.10 SECONDS (12.1-14.9) 09/03/20 20:37 INR 0.96 (0.8-1.2) 09/03/20 20:37 APTT 75.4 SECONDS (23.9-36.7) H D 09/05/20 01:20 D-Dimer 2.59 ug/mIFEU (0-0.59) H 09/03/20 20:37 Specimen Type Arterial 09/05/20 04:26 Sample Site Radial, right 09/05/20 04:26 ABG pH 7.40 (7.35-7.45) 09/05/20 04:26 ABG pCO2 47.1 mmHg (35-45) H 09/05/20 04:26 ABG pO2 94.6 mmHg (80.0-100.0) 09/05/20 04:26 ABG HCO3 29.3 mmol/L (22-26) H 09/05/20 04:26 ABG Base Excess 4.0 mmol/L (-2.0-2.0) H 09/05/20 04:26 Eliazar Test Pos 09/05/20 04:26 Hematocrit 27.0 % (42-52) L 09/05/20 04:26 Hgb O2 Saturation 97.2 % (95-100) 09/03/20 20:26 Carboxyhemoglobin 2.4 %THgb (0.4-20.1) 09/03/20 20:26 Methemoglobin 0.9 % (0.4-1.5) 09/03/20 20:26 Total Hemoglobin 8.9 g/dL (14-18) L 09/03/20 20:26 O2 Delivery Device Vent 09/05/20 04:26 Mechanical Rate 14.0 09/05/20 04:26 FiO2 35.0 % 09/05/20 04:26 Tidal Volume 0.45 09/05/20 04:26 PEEP 5.0 cmH20 09/05/20 04:26 Discovery Manager ID Hinja 09/05/20 04:26 Sodium 136 mmol/L (136-145) 09/05/20 05:12 Potassium 3.7 mmol/L (3.5-5.1) 09/05/20 05:12 Chloride 98 mmol/L (98-107) 09/05/20 05:12 Carbon Dioxide 28 mmol/L (22-29) 09/05/20 05:12 Anion Gap 13.7 (5-19) 09/05/20 05:12 BUN 29 mg/dL (6-20) H 09/05/20 05:12 Creatinine 6.7 mg/dL (0.7-1.2) H* 09/05/20 05:12 GFR Calculation 8.6 mL/min (90-130) L 09/05/20 05:12 Glucose 122 mg/dL (65-115) H 09/05/20 05:12 POC Glucose 132 mg/dL (70-110) H 09/05/20 01:18 Calculated Osmolality 289 mOsm/kg (285-295) 09/05/20 05:12 Lactic Acid 3.5 mmol/L (0.5-2.2) H 09/03/20 20:53 Lactic Acid (Sepsis) 0.9 mmol/L (0.5-2.2) 09/03/20 02:14 Calcium 7.5 mg/dL (8.5-10.5) L 09/05/20 05:12 Iron 44 ug/dL (59-158) L 09/04/20 02:14 TIBC 234 mcg/dl 09/04/20 02:14 % Saturation 18.8 % (20-50) L 09/04/20 02:14 Unsat Iron Binding 190 ug/dL (112-347) 09/04/20 02:14 Total Bilirubin 0.3 mg/dL (0.15-1.2) 09/03/20 20:37 AST 42 U/L (0-40) H 09/03/20 20:37 ALT 20 U/L (0-41) 09/03/20 20:37 Alkaline Phosphatase 131 IU/L (40-130) H 09/03/20 20:37 Lactate Dehydrogenase 332 U/L (135-225) H 09/03/20 20:37 Troponin T Baseline 910 ng/L (0-15) H* 09/03/20 20:37 Troponin T 120 Minute 970.8 ng/L (0-15) H 09/03/20 23:17 Delta Troponin T 60.8 ABS# (0-10) H* 09/03/20 23:17 C-Reactive Protein 4.8 mg/L (0.0-4.9) 09/03/20 20:37 NT-Pro-B Natriuret Pep 99744 pg/mL (0-125) H 09/03/20 20:37 Total Protein 7.1 g/dL (6.6-8.7) 09/03/20 20:37 Albumin 3.9 g/dL (3.5-5.2) 09/03/20 20:37 Globulin 3.2 g/dL (1.3-4.6) 09/03/20 20:37 SARS-CoV-2 Ag (Rapid) Negative (Negative) 09/04/20 09:30 Impressions Chest X-Ray 09/03/20 03:22 IMPRESSION: 1. Bilateral pulmonary infiltrates. There has been some improvement on the right but no other change in the overall appearance of the chest. 2. ET tube, enteric tube and left subclavian port all remain in good position. A&P Additional A&P Information 55M with h/o CAD, CKD on MHD MWF recently admitted at [facility] 08/16-08/29 for NSTEMI, acute systolic CHF exacerbation, hypoxic hypercapneic respiratry failure from volume overload,MSSA bacteremia planned treatment course for 14 days. [place] [facility] [place]. # Acute hypoxic hypercapneic respiratory failure Multifactorial related to systolic CHF exacerbation, pulmonary edema s/p HD on 09/04 Recent MSSA pneumonia diagnosed at [facility], Last CT chest on 08/19 with bibasilar atelactasis. No gross consolidation, currently febrile, no leukocytosis wean vent and extubate today # NSTEMI: signficant tropinin deltas, recent admission also with NSTEMI with peak trop at 990. 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, reportedly GIST per pathology. Obtain [facility] records today # MSSA bacteremia, diagnosed on 08/17/20. Unable to ascertain based on current records when blood culture cleared MSSA also noted in urine at the time, more likely indicative of high grade bacteremia rather than UTI Patient has subclavian port in place x 4 years, unclear indication, port cx N/a from [facility]. [place] [facility] [place], [place]. Had a midline upon arrival, unclear why this was placed, port currently appears to be functional. Currently blood cx negative. If Blood cx returns positive this admission, will likely need port removal. Maintain for now. Continue to treat via port. Change Ceftraixone to renally dosed Cefazolin for MSSA. Planned course at least 4-6 weeks as endovascular infection cannot be excluded Added ESR lumbar MRI 08/19: no evidence of discitis TTE on 08/17: LVEF 47%, hypokinetic apicallatreal wall, VJ to evalute for vegetations needed to be deferred due to GI bleed. # CKD on HD Appreciate renal recommendations Receved procrit 09/04 with HD Currently also on Lasix # Anemia: acute on chronic, recemnt GI blood loss, UGI findings as above. FOBT at bedside negative on 09/05 Anabaptism, refused blood transfusion DVT ppx: contraindicated currently, SCDs for now Full code Attestations Medical Necessity Statement*: ventilator weaning, plan to extubate, cardiology consult for NSTEMI, closely monitor HB Critical Care Time: The high probability of a clinically significant, sudden or life threatening deterioration of the patient's [respiratory, cardiovascular, renal ] system(s) required my full and direct attention, intervention and personal management. The critical care time is as shown. This time is in addition to time spent performing any reported procedures but includes the following: [x] Data and vital sign review and interpretation [x] Patient assessment, examination and intervention [x] Documentation [x] Medication orders and management Critical Care Time (min): 90 Coding Level of Care Code Acute Medical Officer Psychiatry for Thomas Keen
[2020-09-05 06:20] LABS: Hemoglobin 6.4 g/dL (11.7-16.6)
[2020-09-05 07:12] LABS: Glucose Point of Care 140 mg/dL (70-110)
[2020-09-05 07:32] LABS: Glucose Point of Care 136 mg/dL (70-110)
--- NOTE | 2020-09-05 09:36 | PC.CHAP ---
Pastoral Care Encounter/Spiritual Assessment Type of Contact [] Declined compounding scaler visit [] Patient/Family/Request visit [] Outpatient visit [] Follow-up visit [] Physician referral [] Code/Alert [x] Routine visit [] Staff referral [] Actively dying [] Patient sleeping [] Family support [] [] Out of room [] Palliative care [] [] Receiving care in room [] Pre-surgical visit [] Trauma [] Long length of stay [x] ICU visit [x] Other: ventilator Relational/Emotional Strength [] Patient feels connected with others/family/visitors/staff [] Distress [] Loneliness/isolation [] Abandonment Spirituality of Patient [] Person of Jana [] Attends Orthodoxy of their Jana [] Believes in Prayer [] Reads Bible or Sabianism materials [] There are Spiritual issues to be addressed Traffic I Manager Interventions [x] Prayer [] Active listening [] Non-anxious presence [] Spiritual/emotional support [] Crisis/trauma care [] Spiritual counseling [] Bereavement support [] Provided bereavement packet [] Provided Bible/devotional materials [] Provided toy/stuffed animal, coloring book to patient or family member [] Provided Communion [] Anointing/[place] [] Salvation [x] Completed spiritual assessment [] Other: Impact on Illness or Injury [] Angry [] Fearful [] Anxious [] Often cries [] Exhaustion [] Unable to work [] Unable to attend mandaeism [] Unable to walk/stand [] Unable to read [] Unable to drive [] Unable to eat/drink [] Unable to sleep [] Unable to be with family [] Patient intubated [] Other: Summary Time spent with patient
--- NOTE | 2020-09-05 10:39 | PC.NURSE ---
Self extubated. Patient self extubated during josefa for extubation. Sedation was off and patient was following commands, restrained. Patient suctioned, placed on 4lnc, AAOx3, no complaints of pain or discomfort, asking what happened. Patient oriented to time and situation.
[2020-09-05 12:06] LABS: Glucose Point of Care 149 mg/dL (70-110)
--- NOTE | 2020-09-05 13:57 | P.PN_ITS ---
Subjective Subjective: Interval history: Mr. Jett feels much better today. He did receive dialysis yesterday, tolerating ultrafiltration. He was extubated this morning, is now awake lucid, asking for food. Breathing comfortably. Minimal global extremity edema. No uremic symptoms. No chest pain, palpitations. Medications: Reviewed: Yes Vitals/I&O/Wt Last Vital Signs Temp 98.5 F 09/05/20 10:30 Pulse 76 09/05/20 11:00 Resp 18 09/05/20 12:00 BP 143/61 09/05/20 12:00 Pulse Ox 99 09/05/20 12:00 09/04/20 09/05/20 09/05/20 22:59 06:59 14:59 Intake Total 89.984 / 353.984 325.45 / 679.434 442.716 / 442.716 Output Total 100 / 100 100 / 200 Balance -10.016 / 253.984 225.45 / 479.434 442.716 / 442.716 Weight last 48 hrs Weight 116.483 kg Weight 117.979 kg Weight 117.934 kg Physical Exam Narrative: EXAM NARRATIVE: Constitutional: Sedated and vented HEENT: Wet mucosa, no jvp, non icteric Lungs: Bilaterally clear without discernible wheeze, rales in all lung zones CVS: S1 S2, no murmurs Abdo: Soft, BS ok Ext 4: Minimal edema, peripheral perfusion with no cyanosis Urinary Catheter Management^: Barajas: Cath Placed During This Visit: yes Reason for Continuing Indwelling Catheter: Accurate Measurement of Urinary Output in Critically Ill Patients Urinary Catheter Date of Insertion: 09/03/20 Urinary Catheter Time of Insertion: 21:00 Data : 09/05/20 05:12 09/05/20 05:12 Micro: Microbiology 09/04/20 12:00 Blood Culture - Preliminary Blood NEGATIVE TO DATE 09/04/20 11:50 Blood Culture - Preliminary Blood NEGATIVE TO DATE 09/03/20 23:17 Blood Culture - Preliminary Blood NEGATIVE TO DATE 09/03/20 20:53 Blood Culture - Preliminary Blood NEGATIVE TO DATE A&P Additional A&P Information 1. ESRD. Plan for dialysis tomorrow, 3K bath, 3 L ultrafiltration. Cont MWF schedule but will daily evaluate given his fragility Dose medications for GFR less than 15 on dialysis. 2. Vent dependent respiratory failure s/p extubation on 09/05 Dialysis helped i.e. ultrafiltration to relieved vascular congestion Broad-spectrum antibiotics to cover for potential pneumonia. 3. Chemistry. Serum chemistry looks mildly aberrant, noncritical, we will continue to follow. 4. Hemodynamics. Temporarily on dopamine overnight, however this was titrated off and his blood pressures remained stable. Will monitor hemodynamics closely during hospital stay especially during dialysis. 5. Anemia S/p Procrit on 09/04, iron low and will load with Venofer 200mg iv Qrx x 5 Thank you for our involvement in his care, as always it is a pleasure to follow these patients with you John Valentin MD Nephrology [phone] Patient seen and examined via telemedicine, with the assistance of the bedside RN > 25 min spent in evaluation and mgmt of patient Attestations Medical Necessity Statement*: eval for ESRD mgmt Coding Level of Care Code Acute Network Security Officer for Chg Osmani
[2020-09-05] MEDS: iron sucrose 200 MG in sodium chloride 0.9% (100 ml) 100 ML 220 MG IV (15:00)
[2020-09-05] MEDS: sevelamer 800 mg Tablet PO ×2 (15:06→20:36)
[2020-09-05 17:41] LABS: Glucose Point of Care 144 mg/dL (70-110)
--- NOTE | 2020-09-05 19:07 | PC.NURSE ---
Waste Fentanyl 66 ml with Madison Disla RN. [facility] titration says 45 ml.
--- NOTE | 2020-09-05 20:17 | P.CONIM_ITS ---
Providers/Reason For Consult Consulting Physican/Specialty*: Cardiology Reason for Consult*: Heart failure, non-ST elevation PA Attending Physician: Karyn Rehman MD Primary Care Provider: Sandy Kelly MD History of Present Illness History of Present Illness Kt Jett JR is a 55 year old male who is Quaker past medical history significant for recurrent GI bleed, chronic kidney disease dialysis dependent, history of diffuse coronary artery disease with history of stent placement in unknown artery most likely LAD, history of gastric GIST tumor admitted with shock possible sepsis respiratory failure CHF exacerbation and elevated troponin suggestive of non-ST elevation PA and severe anemia. He was treated with antibiotics and pressors. Currently off pressors blood pressure stable however hemoglobin remains around 6.5 mg/dL which was dropped from 8.[address] anticoagulation and antiplatelet. Anticoagulation and antiplatelet was stopped. I was asked to assist in his care. Patient denies any chest pain he appeared to be drowsy and sleepy without any significant distress. Review of Systems General: Reports: ROS unobtainable due to endotracheal tube and ROS unobtainable due to medical condition Meds/Allergies Home Medications and Allergies Home Medications Medication Instructions Recorded Confirmed Last Taken Type atorvastatin 20 mg PO QPM 07/13/19 09/04/20 08/29/20 History cyclobenzaprine 10 mg PO TID 07/13/19 09/04/20 08/29/20 History duloxetine 60 mg PO DAILY 07/13/19 09/04/20 08/29/20 History furosemide 40 mg PO BID 07/13/19 09/04/20 08/29/20 History hydrocodone-acetaminophen 1 - 2 tab PO Q6H PRN 07/13/19 09/04/20 08/31/20 History losartan 100 mg PO DAILY 07/13/19 09/04/20 08/29/20 History metoprolol tartrate 50 mg PO BID 07/13/19 09/04/20 08/29/20 History nitroglycerin [Nitrostat] 0.4 mg SUBLINGUAL Q5M PRN 07/13/19 09/04/20 Unknown History pantoprazole 40 mg PO DAILY 07/13/19 09/04/20 Unknown History isosorbide mononitrate 30 mg PO BID #60 tab 07/14/19 09/04/20 08/29/20 Rx insulin degludec 100 unit/mL 30 unit SUBCUT DAILY ml 03/28/20 09/04/20 08/29/20 History subcutaneous solution folic acid 1 mg PO DAILY 08/30/20 09/04/20 08/29/20 History sevelamer carbonate [Renvela] 800 mg PO TID 08/30/20 09/04/20 Unknown History ceftriaxone 2 g IV DAILY 09/03/20 09/04/20 09/03/20 History cyanocobalamin (vitamin B-12) 1,000 mcg PO QMWF 09/03/20 09/04/20 Unknown History [Vitamin B-12] ergocalciferol (vitamin D2) 50,000 unit PO Q7D 09/03/20 09/04/20 Unknown History [Vitamin D2] cyanocobalamin (vitamin B-12) 1,000 mcg IM EVERY OTHER DAY 09/04/20 09/04/20 Unknown History doxazosin 2 mg PO DAILY 09/04/20 09/04/20 Unknown History vit B,W-JX-hgot-selen-vit D3-E 1 tab PO DAILY 09/04/20 09/04/20 Unknown History [RenaPlex-D] Allergies Allergy/AdvReac Type Severity Reaction Status Date / Time No Known Allergies Allergy Verified 09/03/20 11:16 Current Medications Current Medications Generic Name Dose Route Start Last Admin Trade Name Freq PRN Reason Stop Dose Admin Acetaminophen 650 mg 09/04/20 11:19 09/05/20 05:28 Acetaminophen 325 Mg Tablet PO 650 mg Q4H PRN Administration MILD PAIN OR INCREASE TEMP Furosemide 40 mg 09/03/20 23:22 09/04/20 22:47 Furosemide 10 Mg/Ml Sdv 4ml IVP 40 mg Q24H NATHANAEL Administration Fentanyl 1,000 mcg/ Sodium 100 mls @ 0 mls/hr 09/03/20 20:15 09/05/20 19:05 Chloride IV Infused .Q0M NATHANAEL Titration Protocol Per Protocol Dopamine HCl/Dextrose 400 mg in 250 mls @ 22.113 mls/hr 09/03/20 22:30 09/05/20 19:05 Intropin Drip IV Infused CONT NATHANAEL Titration Protocol 5 MCG/KG/MIN Midazolam HCl 100 mg/ Sodium 100 mls @ 0 mls/hr 09/04/20 02:45 09/05/20 19:05 Chloride IV Infused .Q0M NATHANAEL Titration Protocol Per Protocol Iron Sucrose 200 mg/ Sodium 110 mls @ 220 mls/hr 09/05/20 15:00 09/05/20 15:30 Chloride IV 09/09/20 15:29 Infused Q24H NATHANAEL Infusion Sevelamer Carbonate 800 mg 09/04/20 09:00 09/05/20 15:06 Sevelamer 800 Mg Tablet PO 800 mg TID NATHANAEL Administration PFSH Acute PFSH: Medical History (Updated 09/05/20 @ 20:28 by Herbie Clark MD) Anemia CAD (coronary artery disease) Cardiomyopathy Chronic back pain CKD (chronic kidney disease) Diabetes mellitus Diabetes mellitus, type II End stage renal disease on dialysis ESRD (end stage renal disease) Fibromyalgia GERD (gastroesophageal reflux disease) Hemodialysis access site with arteriovenous graft Hx of staphylococcal infection Hypertension Hypertensive emergency Lumbar disc disease Osteoarthritis Surgical History H/O circumcision History of cataract surgery History of coronary artery stent placement S/P carpal tunnel release S/P tonsillectomy Status post insertion of hemodialysis catheter Status post peritoneal dialysis Family History Mother Aneurysm Grandmother Cancer Sister Cancer Social History Smoking and tobacco status: former smoker Alcohol intake: never Lives independently: Yes Household members: none Housing: House Marital status: service: No Current occupational status: disabled History of recent travel: No Dietary Habits: Current diet type/program: diabetic Exercise: What type of physical activity do you participate in?: walking Vitals/I&O/Wt Last Vital Signs Temp 97.6 F 09/05/20 15:00 Pulse 69 09/05/20 19:00 Resp 19 H 09/05/20 19:00 BP 131/50 09/05/20 19:00 Pulse Ox 96 09/05/20 19:00 09/05/20 09/05/20 09/05/20 06:59 14:59 22:59 Intake Total 325.45 / 679.434 442.716 / 442.716 230.055 / 672.771 Output Total 100 / 200 225 / 225 Balance 225.45 / 479.434 442.716 / 442.716 5.055 / 447.771 Weight last 48 hrs Weight 256 lb 12.8 oz Weight 260 lb 1.6 oz Physical Exam Narrative: EXAM NARRATIVE: GENERAL: Patient is lethargic and sleepy. He opens his eyes and go back to sleep he answer by nodding his head] NECK: No jugular vein distension. HEENT: No cyanosis. No icterus. No pallor. HEART: Regular S1 and S2. No murmur, rub or gallop. LUNGS: Clear to auscultate bilaterally. ABDOMEN: Soft, nontender and nondistended. Positive bowel sounds. No guarding, rebound or tenderness. CENTRAL NERVOUS SYSTEM: Grossly nonfocal. EXTREMITIES: Lower extremities without edema bilaterally. Urinary Catheter Management^: Barajas: Cath Placed During This Visit: yes Reason for Continuing Indwelling Catheter: Accurate Measurement of Urinary Output in Critically Ill Patients Urinary Catheter Date of Insertion: 09/03/20 Urinary Catheter Time of Insertion: 21:00 Data Micro: Micro: Microbiology 09/04/20 12:00 Blood Culture - Pr eliminary Blood NEGATIVE TO LUIS F E 09/04/20 11:50 Blood Culture - Pr eliminary Blood NEGATIVE TO LUIS F E 09/03/20 23:17 Blood Culture - Pr eliminary Blood NEGATIVE TO LUIS F E 09/03/20 20:53 Blood Culture - Pr eliminary Blood NEGATIVE TO LUIS F E A&P Assessment and plan (1) NSTEMI (non-ST elevated myocardial infarction): This is a complicated patient with many comorbidities including hemodialysis recurrent GI bleed with persistent anemia and MSSA. In the past few attempts has made to perform left heart cath but due to his comorbidities and being not able to transfuse as it is against his beliefs it was thought that he should be managed medically. During this presentation patient was started on anticoagulation and antiplatelet however hemoglobin dropped 2-3 points which was therefore stopped. Currently hemoglobin 6.5mg/dl. We agree with managing conservatively on his blood pressure is stable with beta-brad. Antiplatelet such as aspirin and Plavix along with anticoagulation will be on hold due to significant anemia and possibility of bleed. Continue to monitor. Echocardiogram showed mildly depressed LV function which is not significantly different from the prior admissions Status: Acute (2) End stage renal disease on dialysis: Continue dialysis as per nephrology Status: Acute (3) Congestive heart failure: Appear to be compensated. Continue dialysis Status: Acute Qualifiers: Heart failure type: other Qualified Code(s): I50.9 - Heart failure, unspecified (4) Anemia: Continue to monitor. Anticoagulation and antiplatelet on hold Status: Acute Coding Level of Care Code New Pt Acute Funeral Service Manager for Chg Fwd Patient Type New Medical Decision Making High Complexity Diagnoses NSTEMI (non-ST elevated myocardial infarction) I21.4 End stage renal disease on dialysis N18.6; Z99.2 Congestive heart failure I50.9 Heart failure type: other Anemia D64.9
[2020-09-05 22:06] LABS: Glucose Point of Care 180 mg/dL (70-110)
[2020-09-05] MEDS: HYDROcodone-acetaminophen 10-325 mg Tablet 1 TAB PO (22:11)
[2020-09-05] MEDS: cefTRIAXone 2,000 MG in sodium chloride 0.9% (plus) 50 ML 100 MG IV (22:59)
[2020-09-05] MEDS: FUROsemide 10 mg/mL SDV 4mL 40 MG IVP (23:00)
[2020-09-06] VITALS (14 sets, daily range): BP systolic 140–193; BP diastolic 61–88; PULSE 58–72; RESP 10–28; TEMP 36.6–37.2; O2SAT 96–99
[2020-09-06 06:36] LABS: Glucose Point of Care 183 mg/dL (70-110)
--- NOTE | 2020-09-06 06:59 | PM.PN ---
Subjective Subjective: Interval history: feels better. has some hand pain. denies any hemoptysis, black stools or bloody stools Medications: Reviewed: Yes Medication Review Details: Current Medications Hydrocodone Bitart/Acetaminophen (Hydrocodone-Acetaminophen 10-325 Mg Tablet) 1 tab PO Q6H PRN PRN Reason: Pain Last Admin: 09/05/20 22:11 Dose: 1 tab Documented by: Albuterol/Ipratropium (Ipratropium-Albuterol 3 Ml Neb) 3 ml INHALATION Q4H PRN PRN Reason: SHORTNESS OF BREATH Dextrose (Dextrose 50% Syringe 50 Ml) 25 ml IVP ONCE PRN; Protocol PRN Reason: hypoglycemia protocol Dextrose (Dextrose 50% Syringe 50 Ml) 50 ml IVP PRN PRN; Protocol PRN Reason: hypoglycemia protocol Furosemide (Furosemide 10 Mg/Ml Sdv 4ml) 40 mg IVP Q24H [facility] Last Admin: 09/05/20 23:00 Dose: 40 mg Documented by: Glucagon (Glucagon 1 Mg/Ml Inj 1 Ml) 1 mg IM ONCE PRN; Protocol PRN Reason: Adult Acute Hypoglycemia Prot. Dextrose (D5w) 500 mls @ 100 mls/hr IV ONCE PRN; Protocol PRN Reason: Adult Acute Hypoglycemia Prot Ceftriaxone Sodium 2,000 mg/ (Sodium Chloride) 50 mls @ 100 mls/hr IV Q24H [facility] Last Infusion: 09/05/20 23:29 Dose: Infused Documented by: Iron Sucrose 200 mg/ Sodium (Chloride) 110 mls @ 220 mls/hr IV Q24H [facility] Stop: 09/09/20 15:29 Last Infusion: 09/05/20 15:30 Dose: Infused Documented by: Ondansetron HCl (Ondansetron 2 Mg/Ml Sdv 2 Ml) 4 mg IVP Q6H PRN PRN Reason: NAUSEA AND VOMITING Sevelamer Carbonate (Sevelamer 800 Mg Tablet) 800 mg PO TID [facility] Last Admin: 09/05/20 20:36 Dose: 800 mg Documented by: Vitals/I&O/Wt Last Vital Signs Temp 99.0 F 09/06/20 06:00 Pulse 58 L 09/06/20 06:00 Resp 10 L 09/06/20 06:00 BP 153/68 09/06/20 06:00 Pulse Ox 99 09/06/20 06:00 09/05/20 09/05/20 09/06/20 14:59 22:59 06:59 Intake Total 442.716 / 442.716 350.055 / 792.771 50 / 842.771 Output Total 225 / 225 350 / 575 Balance 442.716 / 442.716 125.055 / 567.771 -300 / 267.771 Weight last 48 hrs Weight 115.984 kg Weight 116.483 kg Physical Exam Narrative: EXAM NARRATIVE: obese, VSS, NARd- on 2l nc02- no pressers HEENT: nc/at, eomi, anicteric neck- obese, no jvp Lungs: good air movement b/l CVS: S1 S2, no murmurs appreciated Abdo: Soft, BS ok Ext 4: Minimal edema,RUE AVF w/ good thrill and bruit neuro- a,a, o x 3, moves all ext pulses + b/l exam by RN- telehealth visit Urinary Catheter Management^: Barajas: Cath Placed During This Visit: yes Reason for Continuing Indwelling Catheter: Accurate Measurement of Urinary Output in Critically Ill Patients Urinary Catheter Date of Insertion: 09/03/20 Urinary Catheter Time of Insertion: 21:00 Data : 09/05/20 05:12 09/05/20 05:12 Micro: Microbiology 09/04/20 12:00 Blood Culture - Preliminary Blood 09/04/20 11:50 Blood Culture - Preliminary Blood NEGATIVE TO DATE A&P Additional A&P Information 1. ESRD. Plan for dialysis today- 3K bath, 3 L ultrafiltration. Dose medications for GFR less than 15 on dialysis. 2. Broad-spectrum antibiotics to cover for MSSA bacteremia, UTI, and pneumonia per pulm / medciine. 3. CHF- LVEF 47%, indeterminate diastolic function -cardiology appreciated -medical management, as Jehoviahs witness and cant tx prbc 4. Anemia S/p Procrit on 09/04, iron low and will load with Venofer 200mg iv Qrx x 5 -redose epo today 5. bone- mineral- metabolism- check phos and pth Patient seen and examined via telemedicine, with the assistance of the bedside RN > 25 min spent in evaluation and mgmt of patient Attestations Medical Necessity Statement*: anemia, pna, uti, esrd, Cardiac disease Time Spent in Patient Care: 16 - 35 minutes Coding Level of Care Code Acute Cell Attendant for Thomas Keen
[2020-09-06 07:29] LABS: Basophils % 0.9 %; Eosinophils # 0.5 10^3/uL (0.0-0.8); Eosinophils % 9.9 %; Hematocrit 24.2 % (42.0-52.0); Hemoglobin 7.4 g/dL (11.7-16.6); Lymphocytes # 0.7 10^3/uL (0.8-4.8); Lymphocytes % 15.5 %; Mean Corpuscular HGB Conc 30.6 g/dL (30.0-36.0); Mean Corpuscular Hemoglobin 33.2 pg (28.0-34.0); Mean Corpuscular Volume 108.5 fL (80-94); Mean Platelet Volume 10.9 fL (7.4-10.4); Monocytes # 0.5 10^3/uL (0.2-0.9); Monocytes % 11.4 %; Neutrophils # 2.89 10^3/uL (1.8-7.7); Neutrophils % 62.1 %; Nucleated Red Blood Cells % 0 %; Platelet Count 153 10^3/cmm (130-400); Red Blood Count 2.23 10^6/uL (4.1-5.3); White Blood Count 4.7 10^3/uL (4.0-10.0)
[2020-09-06 07:43] LABS: Alanine Aminotransferase 9 U/L (0-41); Alkaline Phosphatase 60 IU/L (40-130); Anion Gap 14.8 (5-19); Aspartate Amino Transferase 17 U/L (0-40); Blood Urea Nitrogen 41 mg/dL (6-20); Calcium 8.1 mg/dL (8.5-10.5); Carbon Dioxide 28 mmol/L (22-29); Chloride 97 mmol/L (98-107); Globulin 3.3 g/dL (1.3-4.6); Glomerular Filtration Rate 7.1 mL/min (90-130); Glucose 172 mg/dL (65-115); Osmolality Calculated 296 mOsm/kg (285-295); Potassium 3.8 mmol/L (3.5-5.1); Sodium 136 mmol/L (136-145); Total Bilirubin 0.2 mg/dL (0.15-1.2); Total Protein 6.3 g/dL (6.6-8.7)
--- NOTE | 2020-09-06 09:21 | PC.CHAP ---
Pastoral Care Encounter/Spiritual Assessment Type of Contact [] Declined slitting machine operator helper visit [] Patient/Family/Request visit [] Outpatient visit [] Follow-up visit [] Physician referral [] Code/Alert [x] Routine visit [] Staff referral [] Actively dying [] Patient sleeping [] Family support [] [] Out of room [] Palliative care [] [] Receiving care in room [] Pre-surgical visit [] Trauma [] Long length of stay [x] ICU visit [x] Other: JW Relational/Emotional Strength [] Patient feels connected with others/family/visitors/staff [] Distress [] Loneliness/isolation [] Abandonment Spirituality of Patient [] Person of Jana [] Attends Scientology of their Jana [] Believes in Prayer [] Reads Bible or Christian materials [] There are Spiritual issues to be addressed Assortment Planner Interventions [] Prayer [] Active listening [] Non-anxious presence [] Spiritual/emotional support [] Crisis/trauma care [] Spiritual counseling [] Bereavement support [] Provided bereavement packet [] Provided Bible/devotional materials [] Provided toy/stuffed animal, coloring book to patient or family member [] Provided Communion [] Anointing/Menan [] Salvation [x] Completed spiritual assessment [] Other: Impact on Illness or Injury [] Angry [] Fearful [] Anxious [] Often cries [] Exhaustion [] Unable to work [] Unable to attend roman catholic [] Unable to walk/stand [] Unable to read [] Unable to drive [] Unable to eat/drink [] Unable to sleep [] Unable to be with family [] Patient intubated [] Other: Summary Time spent with patient
[2020-09-06] MEDS: sevelamer 800 mg Tablet PO ×2 (09:33→17:09)
[2020-09-06 11:11] LABS: Glucose Point of Care 241 mg/dL (70-110)
--- NOTE | 2020-09-06 11:12 | PC.SOCIAL ---
*IMM* Gave patient important message from Medicare. Placed copy with patient and initialled in the chart.
--- NOTE | 2020-09-06 12:28 | P.PN_ITS ---
Subjective Subjective: Interval history: no new complaints today, feels well overall, afebrile today. Further review of past records show that patient has h/o staph bacteremia in 2019 as well, unable to ascertain source from that time. From most recent admission at [facility], blood cx positive from 08/17 to 08/20, clear as of 08/22 per chart review. Medications: Reviewed: Yes Vitals/I&O/Wt Last Vital Signs Temp 98.0 F 09/07/20 11:00 Pulse 65 09/07/20 11:00 Resp 11 L 09/07/20 11:00 BP 154/70 09/07/20 11:00 Pulse Ox 91 09/07/20 10:04 09/06/20 09/07/20 09/07/20 22:59 06:59 14:59 Intake Total 350 / 830 290 / 1120 120 / 120 Output Total 300 / 300 800 / 1100 Balance 50 / 530 -510 / 20 120 / 120 Weight last 48 hrs Weight 112.808 kg Weight 115.984 kg Physical Exam Narrative: EXAM NARRATIVE: GEN: Awake, alert and oriented, no acute distress CVS: S1S2 N RS: CTA B/L Abd: Soft, nt/nd , bs+ BUSINESS ADMINISTRATOR: no focal neuro deficits Urinary Catheter Management^: Barajas: Cath Placed During This Visit: yes Reason for Continuing Indwelling Catheter: Accurate Measurement of Urinary Output in Critically Ill Patients Urinary Catheter Date of Insertion: 09/03/20 Urinary Catheter Time of Insertion: 21:00 Data : 09/07/20 04:30 09/07/20 04:30 Micro: Microbiology 09/04/20 12:00 Blood Culture - Preliminary Blood Staphylococcus aureus A&P Assessment and plan (1) Respiratory failure with hypoxia and hypercapnia: Status: Acute Qualifiers: Chronicity: acute Qualified Code(s): J96.01 - Acute respiratory failure with hypoxia; J96.02 - Acute respiratory failure with hypercapnia (2) Pulmonary edema: Status: Acute Qualifiers: Chronicity: acute Qualified Code(s): J81.0 - Acute pulmonary edema (3) End stage renal disease on dialysis: Status: Acute Additional A&P Information 55M with h/o CAD, CKD on MHD MWF recently admitted at [facility] 08/16-08/29 for NSTEMI, acute systolic CHF exacerbation, hypoxic hypercapneic respiratry failure from volume overload,MSSA bacteremia planned treatment course for 14 days. [place] [facility] [place] with respiratory failure. # Acute hypoxic hypercapneic respiratory failure Multifactorial related to systolic CHF exacerbation, pulmonary edema s/p HD on 09/04 Recent MSSA pneumonia diagnosed at [facility], Last CT chest on 08/19 with bibasilar atelactasis. No gross consolidation, currently febrile, no leukocytosis Extubated on 09/05, doing well currently # NSTEMI: signficant tropinin deltas, recent admission also with NSTEMI with peak trop at 990. 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 # MSSA bacteremia, diagnosed on 08/17/20. Remained with persistent positive cultures between August 17 to August 20, 2020. Last clear blood culture noted to be August 22, 2020 MSSA also noted in urine at the time, more likely indicative of high grade bacteremia rather than UTI Patient has subclavian port in place x 4 years, unclear indication, port cx N/a from [facility]. Sent at [facility] [place], awaited. Had a midline upon arrival, unclear why this was placed, port currently appears to be functional. Currently blood cx negative. If Blood cx returns positive this admission, will likely need port removal. Maintain for now. Continue to treat via port. Change Ceftraixone to renally dosed Cefazolin for MSSA. Planned course at least 4-6 weeks as endovascular infection cannot be excluded Added ESR lumbar MRI 08/19: no evidence of discitis TTE on 08/17: LVEF 47%, hypokinetic apicallatreal wall, VJ to evalute for vegetations needed to be deferred due to GI bleed. # CKD on HD Appreciate renal recommendations Receved procrit 09/04 with HD , currently on Levophed # Anemia: acute on chronic, recemnt GI blood loss, UGI findings as above. FOBT at bedside negative on 09/05 [facility], refused blood transfusion DVT ppx: contraindicated currently, SCDs for now Full code Attestations Medical Necessity Statement*: Patient needs continued admission for IV antibiotics, pending blood cultures Coding Level of Care Code Acute Pattern Scratcher for [facility] Diagnoses Respiratory failure with hypoxia and hypercapnia J96.01; J96.02 Chronicity: acute Pulmonary edema J81.0 Chronicity: acute End stage renal disease on dialysis N18.6; Z99.2
[2020-09-06] MEDS: iron sucrose 200 MG in sodium chloride 0.9% (100 ml) 100 ML 220 MG IV (15:15)
[2020-09-06 16:13] LABS: Glucose Point of Care 241 mg/dL (70-110)
[2020-09-06] MEDS: ondansetron 2 mg/ML SDV 2 mL 4 MG IVP (18:09)
--- NOTE | 2020-09-06 18:14 | PC.NURSE ---
c/o nausea after dialysis started.
--- NOTE | 2020-09-06 18:54 | P.PN_ITS ---
Subjective Subjective: Interval history: Remained stable vital coulter hemoglobin 7.5 denies any chest pain appeared to be sleepy and fatigued Medications: Reviewed: Yes Medication Review Details: Current Medications Hydrocodone Bitart/Acetaminophen (Hydrocodone-Acetaminophen 10-325 Mg Tablet) 1 tab PO Q6H PRN PRN Reason: Pain Last Admin: 09/05/20 22:11 Dose: 1 tab Documented by: Albuterol/Ipratropium (Ipratropium-Albuterol 3 Ml Neb) 3 ml INHALATION Q4H PRN PRN Reason: SHORTNESS OF BREATH Dextrose (Dextrose 50% Syringe 50 Ml) 25 ml IVP ONCE PRN; Protocol PRN Reason: hypoglycemia protocol Dextrose (Dextrose 50% Syringe 50 Ml) 50 ml IVP PRN PRN; Protocol PRN Reason: hypoglycemia protocol Furosemide (Furosemide 10 Mg/Ml Sdv 4ml) 40 mg IVP Q24H [facility] Last Admin: 09/05/20 23:00 Dose: 40 mg Documented by: Glucagon (Glucagon 1 Mg/Ml Inj 1 Ml) 1 mg IM ONCE PRN; Protocol PRN Reason: Adult Acute Hypoglycemia Prot. Dextrose (D5w) 500 mls @ 100 mls/hr IV ONCE PRN; Protocol PRN Reason: Adult Acute Hypoglycemia Prot Ceftriaxone Sodium 2,000 mg/ (Sodium Chloride) 50 mls @ 100 mls/hr IV Q24H [facility] Last Infusion: 09/05/20 23:29 Dose: Infused Documented by: Iron Sucrose 200 mg/ Sodium (Chloride) 110 mls @ 220 mls/hr IV Q24H [facility] Stop: 09/09/20 15:29 Last Infusion: 09/05/20 15:30 Dose: Infused Documented by: Ondansetron HCl (Ondansetron 2 Mg/Ml Sdv 2 Ml) 4 mg IVP Q6H PRN PRN Reason: NAUSEA AND VOMITING Sevelamer Carbonate (Sevelamer 800 Mg Tablet) 800 mg PO TID [facility] Last Admin: 09/05/20 20:36 Dose: 800 mg Documented by: Vitals/I&O/Wt Last Vital Signs Temp 99.0 F 09/06/20 06:00 Pulse 67 09/06/20 18:00 Resp 20 H 09/06/20 18:00 BP 193/88 09/06/20 18:00 Pulse Ox 97 09/06/20 18:00 02/09/06/20 09/06/20 06:59 14:59 22:59 Intake Total 50 / 842.771 480 / 480 350 / 830 Output Total 350 / 575 300 / 300 Balance -300 / 267.771 480 / 480 50 / 530 Weight last 48 hrs Weight 255 lb 11.2 oz Weight 256 lb 12.8 oz Physical Exam Narrative: EXAM NARRATIVE: GENERAL: Patient is lethargic and sleepy. NECK: No jugular vein distension. HEENT: No cyanosis. No icterus. No pallor. HEART: Regular S1 and S2. No murmur, rub or gallop. LUNGS: Clear to auscultate bilaterally. ABDOMEN: Soft, nontender and nondistended. Positive bowel sounds. No guarding, rebound or tenderness. CENTRAL NERVOUS SYSTEM: Grossly nonfocal. EXTREMITIES: Lower extremities without edema bilaterally. Urinary Catheter Management^: Barajas: Cath Placed During This Visit: yes Reason for Continuing Indwelling Catheter: Accurate Measurement of Urinary Output in Critically Ill Patients Urinary Catheter Date of Insertion: 09/03/20 Urinary Catheter Time of Insertion: 21:00 Data : 09/06/20 07:07 09/06/20 07:07 Micro: Microbiology 09/04/20 12:00 Blood Culture - Preliminary Blood A&P Assessment and plan (1) NSTEMI (non-ST elevated myocardial infarction): Continue conservative management continue to hold antiplatelet and anticoagulation due to severe anemia and not being able to transfuse secondary to restorationist believes. Patient understand all risk benefit and understand the long-term prognosis which is guarded Status: Acute (2) End stage renal disease on dialysis: As per nephrology. Status: Acute (3) Congestive heart failure: Appear to be compensated. Continue dialysis Status: Acute Qualifiers: Heart failure type: other Qualified Code(s): I50.9 - Heart failure, unspecified (4) Anemia: Continue to monitor. Anticoagulation and antiplatelet on hold Status: Acute Attestations Medical Necessity Statement*: Require continuation hospitalization for above defined care. Coding Level of Care Code Established Pt Acute Stations Superintendent for Thomas Keen Patient Type Established History Detailed Exam Detailed Medical Decision Making Moderate Complexity Diagnoses NSTEMI (non-ST elevated myocardial infarction) I21.4 End stage renal disease on dialysis N18.6; Z99.2 Congestive heart failure I50.9 Heart failure type: other Anemia D64.9
[2020-09-06 20:55] LABS: Glucose Point of Care 151 mg/dL (70-110)
--- NOTE | 2020-09-06 21:02 | PC.NURSE ---
2100 dose of sevalemer held due to supposed to be given with meals. Called pharmacy to have timing changed.
--- NOTE | 2020-09-06 23:12 | PC.NURSE ---
Pt transferred to [facility]- at 2230 with belongings. Report called to LILIANA Amaro. Transferred without incident. Family notified of room change.
[2020-09-06] MEDS: cefTRIAXone 2,000 MG in sodium chloride 0.9% (plus) 50 ML 100 MG IV (23:14)
[2020-09-06] MEDS: FUROsemide 10 mg/mL SDV 4mL 40 MG IVP (23:45)
[2020-09-06] MEDS: HYDROcodone-acetaminophen 10-325 mg Tablet 1 TAB PO (23:55)
[2020-09-07] VITALS (12 sets, daily range): BP systolic 154–179; BP diastolic 66–86; PULSE 59–73; RESP 4–18; TEMP 36.6–36.7; O2SAT 91–94; BMI 33.7
[2020-09-07 05:08] LABS: Basophils % 0.8 %; Eosinophils # 0.4 10^3/uL (0.0-0.8); Eosinophils % 8.3 %; Hematocrit 25.2 % (42.0-52.0); Hemoglobin 7.8 g/dL (11.7-16.6); Lymphocytes # 0.9 10^3/uL (0.8-4.8); Lymphocytes % 18.4 %; Mean Corpuscular Hemoglobin 33.2 pg (28.0-34.0); Mean Corpuscular Volume 107.2 fL (80-94); Mean Platelet Volume 10.9 fL (7.4-10.4); Monocytes # 0.6 10^3/uL (0.2-0.9); Monocytes % 11.5 %; Neutrophils # 3.06 10^3/uL (1.8-7.7); Neutrophils % 60.6 %; Nucleated Red Blood Cells % 0 %; Platelet Count 174 10^3/cmm (130-400); Red Blood Count 2.35 10^6/uL (4.1-5.3); Red Cell Distribution Width 17.1 % (12.1-15.1); White Blood Count 5.1 10^3/uL (4.0-10.0)
[2020-09-07 05:28] LABS: Alanine Aminotransferase 9 U/L (0-41); Albumin Level 3.1 g/dL (3.5-5.2); Alkaline Phosphatase 76 IU/L (40-130); Anion Gap 12.9 (5-19); Aspartate Amino Transferase 17 U/L (0-40); Blood Urea Nitrogen 24 mg/dL (6-20); Calcium 8.1 mg/dL (8.5-10.5); Carbon Dioxide 30 mmol/L (22-29); Chloride 100 mmol/L (98-107); Globulin 3.6 g/dL (1.3-4.6); Glomerular Filtration Rate 10.6 mL/min (90-130); Glucose 176 mg/dL (65-115); Osmolality Calculated 296 mOsm/kg (285-295); Potassium 3.9 mmol/L (3.5-5.1); Sodium 139 mmol/L (136-145); Total Bilirubin 0.2 mg/dL (0.15-1.2); Total Protein 6.7 g/dL (6.6-8.7)
[2020-09-07 05:58] LABS: Calcium 8.2 mg/dL (8.5-10.5); Parathyroid Hormone 165.7 pg/mL (15-65)
[2020-09-07 06:04] LABS: Phosphorus 3.9 mg/dL (2.5-4.5)
[2020-09-07 06:43] LABS: Glucose Point of Care 222 mg/dL (70-110)
--- NOTE | 2020-09-07 06:43 | PC.NURSE ---
PT TRANSFERRED FROM ICU. PT AMBULATED TO BED. PT ORIENTATED TO ROOM. PT C/O PAIN 7/10 IN BACK. PRN NORCO WAS GIVEN. WILL CONTINUE TO MONITOR.
[2020-09-07] MEDS: sevelamer 800 mg Tablet PO ×3 (07:52→17:21)
[2020-09-07] MEDS: isosorbide mononitrate ER 30 mg Tablet PO (09:40)
[2020-09-07 11:24] LABS: Glucose Point of Care 245 mg/dL (70-110)
--- NOTE | 2020-09-07 12:40 | PM.PN ---
Subjective Subjective: Interval history: Patient's blood culture from September 04 from the port returned positive for staph aureus. He is currently afebrile, hemodynamically stable. Last dialysis session was yesterday. Hypotensive last evening with systolic blood pressure of 190 Medications: Reviewed: Yes Vitals/I&O/Wt Last Vital Signs Temp 98.0 F 09/07/20 11:00 Pulse 65 09/07/20 11:00 Resp 11 L 09/07/20 11:00 BP 154/70 09/07/20 11:00 Pulse Ox 91 09/07/20 10:04 09/06/20 09/07/20 09/07/20 22:59 06:59 14:59 Intake Total 350 / 830 290 / 1120 120 / 120 Output Total 300 / 300 800 / 1100 Balance 50 / 530 -510 / 20 120 / 120 Weight last 48 hrs Weight 112.808 kg Weight 115.984 kg Physical Exam Narrative: EXAM NARRATIVE: GEN: Awake, alert and oriented, no acute distress CVS: S1S2 N RS: CTA B/L Abd: Soft, nt/nd , bs+ KETTLE FIRER: no focal neuro deficits Urinary Catheter Management^: Barajas: Cath Placed During This Visit: yes Reason for Continuing Indwelling Catheter: Accurate Measurement of Urinary Output in Critically Ill Patients Urinary Catheter Date of Insertion: 09/03/20 Urinary Catheter Time of Insertion: 21:00 Data : 09/07/20 04:30 09/07/20 04:30 Micro: Microbiology 09/04/20 12:00 Blood Culture - Preliminary Blood Staphylococcus aureus A&P Assessment and plan (1) Respiratory failure with hypoxia and hypercapnia: Status: Acute Qualifiers: Chronicity: acute Qualified Code(s): J96.01 - Acute respiratory failure with hypoxia; J96.02 - Acute respiratory failure with hypercapnia (2) Pulmonary edema: Status: Acute Qualifiers: Chronicity: acute Qualified Code(s): J81.0 - Acute pulmonary edema (3) End stage renal disease on dialysis: Status: Acute Additional A&P Information 55M with h/o CAD, CKD on MHD MWF recently admitted at [facility] 08/16-08/29 for NSTEMI, acute systolic CHF exacerbation, hypoxic hypercapneic respiratry failure from volume overload,MSSA bacteremia, source not defined planned treatment course for 14 days. Presented at [facility] on 09/03 with respiratory failure. # Acute hypoxic hypercapneic respiratory failure This is now resolved. Multifactorial related to systolic CHF exacerbation, pulmonary edema Recent MSSA pneumonia diagnosed at [facility], Last CT chest on 08/19 with bibasilar atelactasis. No gross consolidation, currently febrile, no leukocytosis. Chest x-ray on September 03 with bilateral pulmonary infiltrates with some improvement on the right. No change overall. Extubated on 09/05, doing well currently , saturating between 91 to 93% on room air. # NSTEMI: signficant tropinin deltas, recent admission also with NSTEMI with peak trop at 990. Started on heparin infusion on 09/03, then discontinued 09/04 as Hb dropped to 6.4 ASA/plavix/heparin discontinued due to anemia. 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 FOBT negative on 09/06 # MSSA bacteremia, initially diagnosed on 08/17/20 at [facility]. Remained with persistent positive cultures between August 17 to August 20, 2020. Last clear blood culture noted to be August 22, 2020 MSSA also noted in urine at the time, more likely indicative of high grade bacteremia rather than UTI Source was not clearly identified at the time. TTE did not show any gross vegetations at the time. VJ was deferred due to esophageal bleeding. Patient has subclavian port in place x 4 years, unclear indication, port culture has now returned with staph aureus, awaiting susceptibility testing, presumably MSSA that was seen on recent admission. Given that this is a recurrent staph aureus bacteremia, per notes review it appears patient had staph aureus bacteremia back in 2019 as well, now with positive blood cultures, will go ahead and remove the port. General surgery consult has been placed We will need IV antibiotics for 6 weeks from the time of port removal. For now continue to treat with IV ceftriaxone 2 g daily via the port, once port is removed we will switch to cefazolin 2 g IV 3 times a week after dialysis. Recent lumbar MRI was also performed at [facility] which did not show any signs of epidural abscess or discitis. ESR 69 lumbar MRI 08/19: no evidence of discitis TTE on 08/17: LVEF 47%, hypokinetic apicallatreal wall, VJ to evalute for vegetations needed to be deferred due to GI bleed. # CKD on HD Appreciate renal recommendations # Anemia: acute on chronic, recemnt GI blood loss, UGI findings as above. FOBT at bedside negative on 09/05 [place], refused blood transfusion Currently on venofer and procrit with HD No contraindications from a medical or cardiology standpoint for port removal at this present time. DVT ppx: contraindicated currently, SCDs for now Full code Attestations Medical Necessity Statement*: Ongoing need for IV antibiotics, port removal Coding Level of Care Code Acute Cancer Registry Coordinator for [facility] Fwd Diagnoses Respiratory failure with hypoxia and hypercapnia J96.01; J96.02 Chronicity: acute Pulmonary edema J81.0 Chronicity: acute End stage renal disease on dialysis N18.6; Z99.2
--- NOTE | 2020-09-07 12:49 | PM.CONSULT ---
Providers/Reason For Consult Consulting Physican/Specialty*: Donn Amaro MD Reason for Consult*: Bacteremia related to Port-A-Cath Attending Physician: Karyn Rehman MD Primary Care Provider: Sandy Kelly MD History of Present Illness History of Present Illness Chief Complaint: Problem with the port History of present illness: This is a 55 years old gentleman well-known to me from previous clinical encounters known with history of end-stage renal disease on hemodialysis. Patient was admitted to the hospitalist service with shortness of breath and he ended up by being intubated. And later was found to have bacteremia and likely related to his port that was placed back in 2013 per description. Chest x-ray done recently showed: Comparison August 16, 2020. Bilateral widespread pulmonary infiltrates again noted. There has been some partial clearing of the right pulmonary infiltrates since previous study. Heart size is unchanged. No pleural effusions or pneumothorax. An ET tube the ends about 3 cm above the ricki unchanged in position. A left-sided subclavian port extends into the lower one third of the SVC. An enteric tube is noted in the stomach but the tip is not visible. Monitoring leads superimpose the chest. XR/XR chest 1V portable [id number] IMPRESSION: 1. Bilateral pulmonary infiltrates. There has been some improvement on the right but no other change in the overall appearance of the chest. 2. ET tube, enteric tube and left subclavian port all remain in good position. Blood cultures shows positive for Staph aureus General surgery was consulted because of concern of the bacteremia related to the left upper chest Port-A-Cath that was placed before. Review of Systems General: Reports: 10 or more systems reviewed and unremarkable except in HPI and below Meds/Allergies Home Medications and Allergies Home Medications Medication Instructions Recorded Confirmed Last Taken Type atorvastatin 20 mg PO QPM 07/13/19 09/04/20 08/29/20 History cyclobenzaprine 10 mg PO TID 07/13/19 09/04/20 08/29/20 History duloxetine 60 mg PO DAILY 07/13/19 09/04/20 08/29/20 History furosemide 40 mg PO BID 07/13/19 09/04/20 08/29/20 History hydrocodone-acetaminophen 1 - 2 tab PO Q6H PRN 07/13/19 09/04/20 08/31/20 History losartan 100 mg PO DAILY 07/13/19 09/04/20 08/29/20 History metoprolol tartrate 50 mg PO BID 07/13/19 09/04/20 08/29/20 History nitroglycerin [Nitrostat] 0.4 mg SUBLINGUAL Q5M PRN 07/13/19 09/04/20 Unknown History pantoprazole 40 mg PO DAILY 07/13/19 09/04/20 Unknown History isosorbide mononitrate 30 mg PO BID #60 tab 07/14/19 09/04/20 08/29/20 Rx insulin degludec 100 unit/mL 30 unit SUBCUT DAILY ml 03/28/20 09/04/20 08/29/20 History subcutaneous solution folic acid 1 mg PO DAILY 08/30/20 09/04/20 08/29/20 History sevelamer carbonate [Renvela] 800 mg PO TID 08/30/20 09/04/20 Unknown History ceftriaxone 2 g IV DAILY 09/03/20 09/04/20 09/03/20 History cyanocobalamin (vitamin B-12) 1,000 mcg PO QMWF 09/03/20 09/04/20 Unknown History [Vitamin B-12] ergocalciferol (vitamin D2) 50,000 unit PO Q7D 09/03/20 09/04/20 Unknown History [Vitamin D2] cyanocobalamin (vitamin B-12) 1,000 mcg IM EVERY OTHER DAY 09/04/20 09/04/20 Unknown History doxazosin 2 mg PO DAILY 09/04/20 09/04/20 Unknown History vit B,W-PN-srfy-selen-vit D3-E 1 tab PO DAILY 09/04/20 09/04/20 Unknown History [RenaPlex-D] Allergies Allergy/AdvReac Type Severity Reaction Status Date / Time No Known Allergies Allergy Verified 09/07/20 14:47 Current Medications Current Medications Generic Name Dose Route Start Last Admin Trade Name Freq PRN Reason Stop Dose Admin Hydrocodone Bitart/Acetaminophen 1 tab 09/05/20 22:02 09/06/20 23:55 Hydrocodone-Acetaminophen 10-325 Mg Tablet PO 1 tab Q6H PRN Administration Pain Furosemide 40 mg 09/03/20 23:22 09/06/20 23:45 Furosemide 10 Mg/Ml Sdv 4ml IVP 40 mg Q24H NATHANAEL Administration Ceftriaxone Sodium 2,000 mg/ 50 mls @ 100 mls/hr 09/05/20 23:45 09/06/20 23:44 Sodium Chloride IV Infused Q24H NATHANAEL Infusion Iron Sucrose 200 mg/ Sodium 110 mls @ 220 mls/hr 09/05/20 15:00 09/06/20 15:45 Chloride IV 09/09/20 15:29 Infused Q24H NATHANAEL Infusion Insulin Aspart 0 unit 09/06/20 13:00 09/07/20 12:12 Insulin Aspart 100 Unit/1 Ml SUBCUT 6 unit WM&BEDTIME NATHANAEL Administration Protocol Isosorbide Mononitrate 30 mg 09/07/20 09:00 09/07/20 09:40 Isosorbide Mononitrate Er 30 Mg Tablet PO 30 mg DAILY NATHANAEL Administration Ondansetron HCl 4 mg 09/04/20 01:43 09/06/20 18:09 Ondansetron 2 Mg/Ml Sdv 2 Ml IVP 4 mg Q6H PRN Administration NAUSEA AND VOMITING Sevelamer Carbonate 800 mg 09/07/20 08:00 09/07/20 12:12 Sevelamer 800 Mg Tablet PO 800 mg TIDWM NATHANAEL Administration PFSH Acute PFSH: Medical History (Updated 09/07/20 @ 15:58 by Donn Amaro MD) Anemia CAD (coronary artery disease) Cardiomyopathy Chronic back pain CKD (chronic kidney disease) Diabetes mellitus Diabetes mellitus, type II End stage renal disease on dialysis ESRD (end stage renal disease) Fibromyalgia GERD (gastroesophageal reflux disease) Hemodialysis access site with arteriovenous graft Hx of staphylococcal infection Hypertension Hypertensive emergency Lumbar disc disease Osteoarthritis Surgical History H/O circumcision History of cataract surgery History of coronary artery stent placement S/P carpal tunnel release S/P tonsillectomy Status post insertion of hemodialysis catheter Status post peritoneal dialysis Family History Mother Aneurysm Grandmother Cancer Sister Cancer Social History Smoking and tobacco status: former smoker Alcohol intake: never Lives independently: Yes Household members: none Housing: House Marital status: service: No Current occupational status: disabled History of recent travel: No Vitals/I&O/Wt Last Vital Signs Temp 98.0 F 09/07/20 11:00 Pulse 65 09/07/20 11:00 Resp 11 L 09/07/20 11:00 BP 154/70 09/07/20 11:00 Pulse Ox 91 09/07/20 10:04 09/06/20 09/07/20 09/07/20 22:59 06:59 14:59 Intake Total 350 / 830 290 / 1120 120 / 120 Output Total 300 / 300 800 / 1100 Balance 50 / 530 -510 / 20 120 / 120 Weight last 48 hrs Weight 248 lb 11.2 oz Weight 255 lb 11.2 oz Physical Exam Narrative: EXAM NARRATIVE: Patient is conscious alert oriented X3 BMI 34 Head and neck examination PERRLA no masses no cervical lymphadenopathy no jaundice Cardiac examination audible murmurs Chest is clear bilateral,abscence of Rhonchi or wheezes,no surgical emphysema Left upper chest port in place Abdomen nontender nondistended soft no organomegaly guarding or rigidity/no signs of peritonitis Right upper extremity AV fistula with good thrill and bruit Urinary Catheter Management^: Barajas: Cath Placed During This Visit: yes Reason for Continuing Indwelling Catheter: Accurate Measurement of Urinary Output in Critically Ill Patients Urinary Catheter Date of Insertion: 09/03/20 Urinary Catheter Time of Insertion: 21:00 Data Micro: Micro: Microbiology 09/04/20 12:00 Blood Culture - Pr eliminary Blood Staphylococcus aureus A&P Assessment and plan (1) Infection due to Port-A-Cath: Plan of care; After thorough history physical examination and reviewing the chart and reviweing the images iwth my personal intrepretation.I counseled the patient for Port-A-Cath explantation, indications, risks including pneumothorax that may require Chest tube(s) placement and potential injury of major vascular structures that may require Thoractomy, benefits,indications and alternatives were all discussed with the patient, patient understands and is interested to proceed. Rationale was carefully and clearly discussed with the patient.Appropriate informed consent have been reviewed and signed. N.p.o. after midnight Status: Acute Consult Attestations Medical Necessity Statement: Continue hospitalization for medical care Time Spent in Patient Care: (>than 50% of time spent in counselling and/or direct pt care on unit). 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
--- NOTE | 2020-09-07 14:19 | PC.NURSE ---
Nathanyexalate order clarified with Dr. Rehman. Patient's K is 3.9. Telephone order to hold medication at this time. RBTO.
[2020-09-07 15:09] LABS: Alanine Aminotransferase 10 U/L (0-41); Alkaline Phosphatase 81 IU/L (40-130); Blood Urea Nitrogen 27 mg/dL (6-20); Calcium 8.7 mg/dL (8.5-10.5); Carbon Dioxide 27 mmol/L (22-29); Chloride 97 mmol/L (98-107); Globulin 3.7 g/dL (1.3-4.6); Glomerular Filtration Rate 9.1 mL/min (90-130); Glucose 267 mg/dL (65-115); Osmolality Calculated 294 mOsm/kg (285-295); Sodium 135 mmol/L (136-145); Total Bilirubin 0.2 mg/dL (0.15-1.2); Total Protein 6.7 g/dL (6.6-8.7)
[2020-09-07 15:30] LABS: Anion Gap 15.3 (5-19); Aspartate Amino Transferase 31 U/L (0-40); Potassium 4.3 mmol/L (3.5-5.1)
--- NOTE | 2020-09-07 16:18 | PM.PN ---
Subjective Subjective: Interval history: No new issues today, he feels fine. Very mild lower extremity edema, no other symptoms of hypervolemia. No uremic symptoms. Eating and drinking normally. Blood cultures noted to be positive Dialysis went well yesterday Medications: Reviewed: Yes Medication Review Details: Current Medications Hydrocodone Bitart/Acetaminophen (Hydrocodone-Acetaminophen 10-325 Mg Tablet) 1 tab PO Q6H PRN PRN Reason: Pain Last Admin: 09/05/20 22:11 Dose: 1 tab Documented by: Albuterol/Ipratropium (Ipratropium-Albuterol 3 Ml Neb) 3 ml INHALATION Q4H PRN PRN Reason: SHORTNESS OF BREATH Dextrose (Dextrose 50% Syringe 50 Ml) 25 ml IVP ONCE PRN; Protocol PRN Reason: hypoglycemia protocol Dextrose (Dextrose 50% Syringe 50 Ml) 50 ml IVP PRN PRN; Protocol PRN Reason: hypoglycemia protocol Furosemide (Furosemide 10 Mg/Ml Sdv 4ml) 40 mg IVP Q24H [facility] Last Admin: 09/05/20 23:00 Dose: 40 mg Documented by: Glucagon (Glucagon 1 Mg/Ml Inj 1 Ml) 1 mg IM ONCE PRN; Protocol PRN Reason: Adult Acute Hypoglycemia Prot. Dextrose (D5w) 500 mls @ 100 mls/hr IV ONCE PRN; Protocol PRN Reason: Adult Acute Hypoglycemia Prot Ceftriaxone Sodium 2,000 mg/ (Sodium Chloride) 50 mls @ 100 mls/hr IV Q24H [facility] Last Infusion: 09/05/20 23:29 Dose: Infused Documented by: Iron Sucrose 200 mg/ Sodium (Chloride) 110 mls @ 220 mls/hr IV Q24H [facility] Stop: 09/09/20 15:29 Last Infusion: 09/05/20 15:30 Dose: Infused Documented by: Ondansetron HCl (Ondansetron 2 Mg/Ml Sdv 2 Ml) 4 mg IVP Q6H PRN PRN Reason: NAUSEA AND VOMITING Sevelamer Carbonate (Sevelamer 800 Mg Tablet) 800 mg PO TID [facility] Last Admin: 09/05/20 20:36 Dose: 800 mg Documented by: Vitals/I&O/Wt Last Vital Signs Temp 97.8 F 09/07/20 15:00 Pulse 66 09/07/20 15:00 Resp 10 L 09/07/20 15:00 BP 164/72 09/07/20 15:00 Pulse Ox 91 09/07/20 10:04 09/07/20 09/07/20 09/07/20 06:59 14:59 22:59 Intake Total 290 / 1120 240 / 240 Output Total 800 / 1100 Balance -510 / 20 240 / 240 Weight last 48 hrs Weight 112.808 kg Weight 115.984 kg Physical Exam Narrative: EXAM NARRATIVE: Constitutional: Sedated and vented HEENT: Wet mucosa, no jvp, non icteric Lungs: Bilaterally clear without discernible wheeze, rales in all lung zones CVS: S1 S2, no murmurs Abdo: Soft, BS ok Ext 4: Minimal edema, peripheral perfusion with no cyanosis Urinary Catheter Management^: Barajas: Cath Placed During This Visit: yes Reason for Continuing Indwelling Catheter: Accurate Measurement of Urinary Output in Critically Ill Patients Urinary Catheter Date of Insertion: 09/03/20 Urinary Catheter Time of Insertion: 21:00 Data : 09/07/20 04:30 09/07/20 14:23 Micro: Microbiology 09/07/20 14:23 Blood Culture - Preliminary Blood SPECIMEN COLLECTED 09/04/20 12:00 Blood Culture - Preliminary Blood Staphylococcus aureus A&P Additional A&P Information 1. ESRD. Plan for dialysis tomorrow, 3K bath, 3 L ultrafiltration. Cont MWF schedule but will daily evaluate given his fragility Dose medications for GFR less than 15 on dialysis. 2. MSSA bacteremia On Abx, port to be removed tomorrow 3. Chemistry. Serum chemistry looks mildly aberrant, noncritical, we will continue to follow. 4. Hemodynamics. Remains robust 5. Anemia S/p Procrit on 09/04, iron low and will load with Venofer 200mg iv Qrx x 5 Thank you for our involvement in his care, as always it is a pleasure to follow these patients with you John Valentin MD Nephrology [phone] Patient seen and examined via telemedicine, with the assistance of the bedside RN > 25 min spent in evaluation and mgmt of patient Attestations Medical Necessity Statement*: ESRD mgmt Coding Level of Care Code Acute Unload Associate for Thomas Keen
[2020-09-07] MEDS: iron sucrose 200 MG in sodium chloride 0.9% (100 ml) 100 ML 220 MG IV (16:23)
[2020-09-07 16:30] LABS: Glucose Point of Care 266 mg/dL (70-110)
--- NOTE | 2020-09-07 20:08 | P.PN_ITS ---
Subjective Subjective: Interval history: Patient denies any chest pain he will be going for discontinuation of port tomorrow. Medications: Reviewed: Yes Medication Review Details: Current Medications Hydrocodone Bitart/Acetaminophen (Hydrocodone-Acetaminophen 10-325 Mg Tablet) 1 tab PO Q6H PRN PRN Reason: Pain Last Admin: 09/05/20 22:11 Dose: 1 tab Documented by: Albuterol/Ipratropium (Ipratropium-Albuterol 3 Ml Neb) 3 ml INHALATION Q4H PRN PRN Reason: SHORTNESS OF BREATH Dextrose (Dextrose 50% Syringe 50 Ml) 25 ml IVP ONCE PRN; Protocol PRN Reason: hypoglycemia protocol Dextrose (Dextrose 50% Syringe 50 Ml) 50 ml IVP PRN PRN; Protocol PRN Reason: hypoglycemia protocol Furosemide (Furosemide 10 Mg/Ml Sdv 4ml) 40 mg IVP Q24H [facility] Last Admin: 09/05/20 23:00 Dose: 40 mg Documented by: Glucagon (Glucagon 1 Mg/Ml Inj 1 Ml) 1 mg IM ONCE PRN; Protocol PRN Reason: Adult Acute Hypoglycemia Prot. Dextrose (D5w) 500 mls @ 100 mls/hr IV ONCE PRN; Protocol PRN Reason: Adult Acute Hypoglycemia Prot Ceftriaxone Sodium 2,000 mg/ (Sodium Chloride) 50 mls @ 100 mls/hr IV Q24H [facility] Last Infusion: 09/05/20 23:29 Dose: Infused Documented by: Iron Sucrose 200 mg/ Sodium (Chloride) 110 mls @ 220 mls/hr IV Q24H [facility] Stop: 09/09/20 15:29 Last Infusion: 09/05/20 15:30 Dose: Infused Documented by: Ondansetron HCl (Ondansetron 2 Mg/Ml Sdv 2 Ml) 4 mg IVP Q6H PRN PRN Reason: NAUSEA AND VOMITING Sevelamer Carbonate (Sevelamer 800 Mg Tablet) 800 mg PO TID [facility] Last Admin: 09/05/20 20:36 Dose: 800 mg Documented by: Vitals/I&O/Wt Last Vital Signs Temp 98.0 F 09/07/20 19:00 Pulse 67 09/07/20 19:00 Resp 16 09/07/20 19:00 BP 179/86 09/07/20 19:00 Pulse Ox 91 09/07/20 10:04 09/07/20 09/07/20 09/07/20 06:59 14:59 22:59 Intake Total 290 / 1120 240 / 240 230 / 470 Output Total 800 / 1100 Balance -510 / 20 240 / 240 230 / 470 Weight last 48 hrs Weight 248 lb 11.2 oz Weight 255 lb 11.2 oz Physical Exam Narrative: EXAM NARRATIVE: GENERAL: Patient is awake and oriented. NECK: No jugular vein distension. HEENT: No cyanosis. No icterus. No pallor. HEART: Regular S1 and S2. No murmur, rub or gallop. LUNGS: Clear to auscultate bilaterally. ABDOMEN: Soft, nontender and nondistended. Positive bowel sounds. No guarding, rebound or tenderness. CENTRAL NERVOUS SYSTEM: Grossly nonfocal. EXTREMITIES: Lower extremities without edema bilaterally. Urinary Catheter Management^: Barajas: Cath Placed During This Visit: yes Reason for Continuing Indwelling Catheter: Accurate Measurement of Urinary Output in Critically Ill Patients Urinary Catheter Date of Insertion: 09/03/20 Urinary Catheter Time of Insertion: 21:00 Data : 09/08/20 05:30 09/08/20 05:30 Micro: Microbiology 09/07/20 14:23 Blood Culture - Preliminary Blood SPECIMEN COLLECTED 09/04/20 12:00 Blood Culture - Preliminary Blood Staphylococcus aureus A&P Assessment and plan (1) NSTEMI (non-ST elevated myocardial infarction): Continue conservative management continue to hold antiplatelet and anticoagulation due to severe anemia and not being able to transfuse secondary to anglican believes. Patient understand all risk benefit and understand the long-term prognosis which is guarded Continue to monitor. Continue current regimen appear to be stable. Status: Acute (2) End stage renal disease on dialysis: Continue dialysis as per nephrology Status: Acute (3) Congestive heart failure: Well compensated. Continue current regimen Status: Acute Qualifiers: Heart failure type: other Qualified Code(s): I50.9 - Heart failure, unspecified (4) Anemia: Continue to monitor. Anticoagulation and antiplatelet on hold due to anemic with anglican believes Status: Acute Attestations Medical Necessity Statement*: Patient require continuation hospitalization for above defined care. Coding Level of Care Code Established Pt Acute Detailer for Thomas Keen Patient Type Established History Detailed Exam Detailed Medical Decision Making Moderate Complexity Diagnoses NSTEMI (non-ST elevated myocardial infarction) I21.4 End stage renal disease on dialysis N18.6; Z99.2 Congestive heart failure I50.9 Heart failure type: other Anemia D64.9
[2020-09-07 20:12] LABS: Glucose Point of Care 243 mg/dL (70-110)
[2020-09-07] MEDS: HYDROcodone-acetaminophen 10-325 mg Tablet 1 TAB PO (20:28)
[2020-09-07] MEDS: amlodipine 5 mg Tablet PO (20:28)
--- NOTE | 2020-09-07 20:37 | PC.NURSE ---
Dr. Clark gave verbal order to start Amlodipine 5 mg BID, first dose now.
[2020-09-07] MEDS: cefTRIAXone 2,000 MG in sodium chloride 0.9% (plus) 50 ML 100 MG IV (23:51)
[2020-09-07] MEDS: FUROsemide 10 mg/mL SDV 4mL 40 MG IVP (23:52)
--- NOTE | 2020-09-07 23:58 | PC.NURSE ---
Port needle removed. Cleansed with chlorhexidine. Dressing applied used sterile technique.
[2020-09-08] VITALS (14 sets, daily range): BP systolic 119–188; BP diastolic 50–93; PULSE 65–78; RESP 13–18; TEMP 36.6–37.6; O2SAT 93–95
--- NOTE | 2020-09-08 04:14 | PC.NURSE ---
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
--- NOTE | 2020-09-08 04:51 | PC.NURSE ---
Dressing removed from left upper chest. Patient given full body cleans with Hippaclens wipes per order, especially around left upper chest area. Patient provided clean gown and clean linens.
--- NOTE | 2020-09-08 05:08 | PC.NURSE ---
A nurse attempted to get labs this AM due to lab staff having trouble getting them. Patient stated to the nurse, if you get in there and start digging around and don't get it, I'm gonna punch you in the face.
[2020-09-08 05:47] LABS: Basophils % 0.7 %; Eosinophils # 0.5 10^3/uL (0.0-0.8); Eosinophils % 8.7 %; Hematocrit 29.8 % (42.0-52.0); Hemoglobin 9.2 g/dL (11.7-16.6); Lymphocytes # 1.7 10^3/uL (0.8-4.8); Lymphocytes % 28.7 %; Mean Corpuscular HGB Conc 30.9 g/dL (30.0-36.0); Mean Corpuscular Hemoglobin 33.1 pg (28.0-34.0); Mean Corpuscular Volume 107.2 fL (80-94); Mean Platelet Volume 10.4 fL (7.4-10.4); Monocytes # 0.5 10^3/uL (0.2-0.9); Monocytes % 8.5 %; Neutrophils # 3.19 10^3/uL (1.8-7.7); Neutrophils % 53.2 %; Nucleated Red Blood Cells % 0 %; Platelet Count 222 10^3/cmm (130-400); Red Blood Count 2.78 10^6/uL (4.1-5.3); Red Cell Distribution Width 16.9 % (12.1-15.1)
[2020-09-08 06:04] LABS: Alanine Aminotransferase 10 U/L (0-41); Albumin Level 3.6 g/dL (3.5-5.2); Alkaline Phosphatase 74 IU/L (40-130); Anion Gap 21.6 (5-19); Aspartate Amino Transferase 19 U/L (0-40); Blood Urea Nitrogen 31 mg/dL (6-20); Carbon Dioxide 24 mmol/L (22-29); Chloride 96 mmol/L (98-107); Globulin 4.1 g/dL (1.3-4.6); Glucose 185 mg/dL (65-115); Osmolality Calculated 297 mOsm/kg (285-295); Potassium 3.6 mmol/L (3.5-5.1); Sodium 138 mmol/L (136-145); Total Bilirubin 0.2 mg/dL (0.15-1.2); Total Protein 7.7 g/dL (6.6-8.7)
--- NOTE | 2020-09-08 06:09 | PC.NURSE ---
Addendum entered by Nai Prince RN 09/08/20 06:12: Rate is 67. Original Note: Patient was in SR earlier. Patient is currently in A-fib. Dr. Clark notified.
--- NOTE | 2020-09-08 06:49 | PC.NURSE ---
Around 624, patient was transferred to surgery.
--- NOTE | 2020-09-08 06:58 | ANES.PREANE2 ---
Pre-Anesthetic Assessment Pre-Anesthetic Assessment: Height/Weight: Height 1.83 m Weight 111.674 kg Temp Pulse Resp BP Pulse Ox 98.1 F 74 13 187/83 95 09/07/20 23:00 09/08/20 04:10 09/08/20 03:00 09/08/20 03:00 09/08/20 03:00 Preop Diagnosis: Bacteremia related to Port-A-Cath Proposed Procedure: Operation Date: 09/08/20 07:00 Proposed Procedures p Portacath Removal(Not Applicable) - Donn Amaro MD Was Beta Flores taken within 24 hours: Yes Last intake: Intake Last Liquid Date 09/07/20 Last Liquid Time 22:30 Last Solid Date 09/07/20 Last Solid Time 17:00 Social: Social History: Tobacco and No alcohol Exam: Pre-Anes Outpt Exam: alert, oriented x 3 and regular rate & rhythm Airway: Submandibular: WNL Cervical ROM: WNL MP: 2 Additional comments: Very poor dentition, multiple missing and chipped Pulmonary: Pulmonary: COPD CV/HEM: CV/HEM: Anemia, CAD (stents), HTN and KS Comments: Sepsis : : Chronic renal failure Hepatic: Hepatic: Hepatitis (B) GI: GI: GERD Metabolic: Metabolic: DM and Morbid obesity Musc/skel: Musc/skel: Lower Back Pain Anesthetic Plan: ASA status: 4 Anesthesia: MAC Risk of > 500 ml blood loss (7ml/kg in children): No Meds/Allergies Current Medications: Current Medications Generic Name Dose Route Start Last Admin Trade Name Freq PRN Reason Stop Dose Admin Hydrocodone Bitart /Acetaminophen 1 tab 09/05/20 22:02 09/07/20 20:28 Hydrocodone-Acet aminophen 10-325 M g Tablet PO 1 tab Q6H PRN Administration Pain Furosemide 40 mg 09/03/20 23:22 09/07/20 23:52 Furosemide 10 Mg /Ml Sdv 4ml IVP 40 mg Q24H NATHANAEL Administration Ceftriaxone Sodium 2,000 mg/ 50 mls @ 100 mls/ hr 09/05/20 23:45 09/08/20 00:28 Sodium Chloride IV Infused Q24H NATHANAEL Infusion Iron Sucrose 200 m g/ Sodium 110 mls @ 220 mls /hr 09/05/20 15:00 09/07/20 17:14 Chloride IV Infused Q24H NATHANAEL Infusion Insulin Aspart 0 unit 09/06/20 13:00 09/07/20 20:29 Insulin Aspart 1 00 Unit/1 Ml SUBCUT 6 unit WM&BEDTIME NATHANAEL Administration Protocol Isosorbide Mononit rate 30 mg 09/07/20 09:00 09/07/20 09:40 Isosorbide [place] itrate Er 30 Mg Ta blet PO 30 mg DAILY NATHANAEL Administration Ondansetron HCl 4 mg 09/04/20 01:43 09/06/20 18:09 Ondansetron 2 Mg /Ml Sdv 2 Ml IVP 4 mg Q6H PRN Administration NAUSEA AND VOMITI NG Sevelamer Carbonat e 800 mg 09/07/20 08:00 09/07/20 17:21 Sevelamer 800 Mg Tablet PO 800 mg TIDWM NATHANAEL Administration PFSH Anesthesia PFSH: Medical History (Updated 09/07/20 @ 15:58 by Donn Amaro MD) Anemia CAD (coronary artery disease) Cardiomyopathy Chronic back pain CKD (chronic kidney disease) Diabetes mellitus Diabetes mellitus, type II End stage renal disease on dialysis ESRD (end stage renal disease) Fibromyalgia GERD (gastroesophageal reflux disease) Hemodialysis access site with arteriovenous graft Hx of staphylococcal infection Hypertension Hypertensive emergency Lumbar disc disease Osteoarthritis Surgical History H/O circumcision History of cataract surgery History of coronary artery stent placement S/P carpal tunnel release S/P tonsillectomy Status post insertion of hemodialysis catheter Status post peritoneal dialysis Family History Mother Aneurysm Grandmother Cancer Sister Cancer Social History Smoking and tobacco status: former smoker Alcohol intake: never Lives independently: Yes Household members: none Housing: House Marital status: service: No Current occupational status: disabled History of recent travel: No Data Anesthesia CBC & Chem 7: 09/08/20 05:30 09/08/20 05:30 Other Labs: Laboratory Results - last 48 hr 09/06/20 09/06/20 09/06/20 07:07 07:07 11:04 WBC 4.7 RBC 2.23 L Hgb 7.4 L Hct 24.2 L MCV 108.5 H MCH 33.2 MCHC 30.6 RDW 17.0 H Plt Count 153 MPV 10.9 H Neut % (Auto) 62.1 Lymph % (Auto) 15.5 Humphreys % (Auto) 11.4 Eos % (Auto) 9.9 Baso % (Auto) 0.9 Neut # (Auto) 2.89 Lymph # (Auto) 0.7 L Humphreys # (Auto) 0.5 Eos # (Auto) 0.5 Baso # (Auto) 0.0 Nucleated RBC % (auto) 0 Nucleated RBCs # 0.0 Sodium 136 Potassium 3.8 Chloride 97 L Carbon Dioxide 28 Anion Gap 14.8 BUN 41 H Creatinine 7.9 H* GFR Calculation 7.1 L Glucose 172 H POC Glucose 241 H Calculated Osmolality 296 H Calcium 8.1 L Phosphorus Total Bilirubin 0.2 AST 17 ALT 9 Alkaline Phosphatase 60 Total Protein 6.3 L Albumin 3.0 L Globulin 3.3 PTH Intact Calcium (PTH Intact) 09/06/20 09/06/20 09/07/20 16:09 20:52 04:30 WBC 5.1 RBC 2.35 L Hgb 7.8 L Hct 25.2 L MCV 107.2 H MCH 33.2 MCHC 31.0 RDW 17.1 H Plt Count 174 MPV 10.9 H Neut % (Auto) 60.6 Lymph % (Auto) 18.4 Humphreys % (Auto) 11.5 Eos % (Auto) 8.3 Baso % (Auto) 0.8 Neut # (Auto) 3.06 Lymph # (Auto) 0.9 Humphreys # (Auto) 0.6 Eos # (Auto) 0.4 Baso # (Auto) 0.0 Nucleated RBC % (auto) 0 Nucleated RBCs # 0.0 Sodium Potassium Chloride Carbon Dioxide Anion Gap BUN Creatinine GFR Calculation Glucose POC Glucose 241 H 151 H Calculated Osmolality Calcium Phosphorus Total Bilirubin AST ALT Alkaline Phosphatase Total Protein Albumin Globulin PTH Intact Calcium (PTH Intact) 09/07/20 09/07/20 09/07/20 04:30 04:30 04:30 WBC RBC Hgb Hct MCV MCH MCHC RDW Plt Count MPV Neut % (Auto) Lymph % (Auto) Humphreys % (Auto) Eos % (Auto) Baso % (Auto) Neut # (Auto) Lymph # (Auto) Humphreys # (Auto) Eos # (Auto) Baso # (Auto) Nucleated RBC % (auto) Nucleated RBCs # Sodium 139 Potassium 3.9 Chloride 100 Carbon Dioxide 30 H Anion Gap 12.9 BUN 24 H Creatinine 5.6 H* GFR Calculation 10.6 L Glucose 176 H POC Glucose Calculated Osmolality 296 H Calcium 8.1 L Phosphorus 3.9 Total Bilirubin 0.2 AST 17 ALT 9 Alkaline Phosphatase 76 Total Protein 6.7 Albumin 3.1 L Globulin 3.6 PTH Intact 165.7 H Calcium (PTH Intact) 8.2 L 09/07/20 09/07/20 09/07/20 06:40 11:15 14:23 WBC RBC Hgb Hct MCV MCH MCHC RDW Plt Count MPV Neut % (Auto) Lymph % (Auto) Humphreys % (Auto) Eos % (Auto) Baso % (Auto) Neut # (Auto) Lymph # (Auto) Humphreys # (Auto) Eos # (Auto) Baso # (Auto) Nucleated RBC % (auto) Nucleated RBCs # Sodium 135 L Potassium 4.3 Chloride 97 L Carbon Dioxide 27 Anion Gap 15.3 BUN 27 H Creatinine 6.4 H* GFR Calculation 9.1 L Glucose 267 H POC Glucose 222 H 245 H Calculated Osmolality 294 Calcium 8.7 Phosphorus Total Bilirubin 0.2 AST 31 ALT 10 Alkaline Phosphatase 81 Total Protein 6.7 Albumin 3.0 L Globulin 3.7 PTH Intact Calcium (PTH Intact) 09/07/20 09/07/20 09/08/20 16:26 20:07 05:30 WBC 6.0 RBC 2.78 L Hgb 9.2 L Hct 29.8 L MCV 107.2 H MCH 33.1 MCHC 30.9 RDW 16.9 H Plt Count 222 MPV 10.4 Neut % (Auto) 53.2 Lymph % (Auto) 28.7 Humphreys % (Auto) 8.5 Eos % (Auto) 8.7 Baso % (Auto) 0.7 Neut # (Auto) 3.19 Lymph # (Auto) 1.7 Humphreys # (Auto) 0.5 Eos # (Auto) 0.5 Baso # (Auto) 0.0 Nucleated RBC % (auto) 0 Nucleated RBCs # 0.0 Sodium Potassium Chloride Carbon Dioxide Anion Gap BUN Creatinine GFR Calculation Glucose POC Glucose 266 H 243 H Calculated Osmolality Calcium Phosphorus Total Bilirubin AST ALT Alkaline Phosphatase Total Protein Albumin Globulin PTH Intact Calcium (PTH Intact) 09/08/20 05:30 WBC RBC Hgb Hct MCV MCH MCHC RDW Plt Count MPV Neut % (Auto) Lymph % (Auto) Humphreys % (Auto) Eos % (Auto) Baso % (Auto) Neut # (Auto) Lymph # (Auto) Humphreys # (Auto) Eos # (Auto) Baso # (Auto) Nucleated RBC % (auto) Nucleated RBCs # Sodium 138 Potassium 3.6 Chloride 96 L Carbon Dioxide 24 Anion Gap 21.6 H BUN 31 H Creatinine 7.2 H* GFR Calculation 8.0 L Glucose 185 H POC Glucose Calculated Osmolality 297 H Calcium 9.0 Phosphorus Total Bilirubin 0.2 AST 19 ALT 10 Alkaline Phosphatase 74 Total Protein 7.7 Albumin 3.6 Globulin 4.1 PTH Intact Calcium (PTH Intact) Micro: Microbiology 09/07/20 14:23 Blood Culture - Preliminary Blood SPECIMEN COLLECTED 09/04/20 12:00 Blood Culture - Preliminary Blood Staphylococcus aureus Cardiac Studies: No Data to Display
[2020-09-08] MEDS: sodium chloride 0.9% 1,000 ML 30 ML IV (07:19)
[2020-09-08] MEDS: lidocaine 1% INJ 20 mL INTRADERMA (07:20)
[2020-09-08] MEDS: lidocaine 2% INJ 20 mL INJECTION (07:37)
--- NOTE | 2020-09-08 07:45 | P.OP_ITS ---
Operative Report Date of procedure: September 08, 2020 Pre-op Diagnosis: Bacteremia related to Port-A-Cath Post-op diagnosis: same Post-op Findings: Clean bed of left upper chest Port-A-Cath Procedure Done: Explantation of left upper chest Port-A-Cath Specimens removed/disposition: Tip of Port-A-Cath catheter sent for microbiology Surgeon: Donn Amaro Surgeon: Shiloh Hyde Circulating nurse Falguni Gallegos Anesthesia: MAC (blocking machine tender Kylha) Estimated blood loss (mL): 5 Disposition: floor Brief History: Bacteremia related to Port-A-Cath full H&P per chart Informed consent per chart Procedure: Left upper chest Port-A-Cath explantation Patient was identified in the holding area and was taken to the OR and was placed in supine position. Timeout was done for the planned procedure and destination after the procedure, all were in agreement. SCDs confirmed to be functioning, preoperative antibiotics administered per protocol, and beta brad protocol was confirmed, appropriate positioning of the patient was done by me. Including talking of the left arm and the right arm was left at the right angle to the patient's body. Prep and drape of the left upper chest was done under the usual sterile technique,injection of lidocaine 2% at the site of the planned incision started by an transverse incision including the previous scar of the Port-A-Cath placement at the left upper chest wall, no evidence of pus, the port was then explanted after taking down the pseudocapsule attaching the port to the underlying fat, at this point the catheter was removed at the same time direct pressure was applied at the site of the left subclavian stick to prevent bleeding. The tip of the catheter of the port was sent for culture and sensitivities Thorough irrigation of the Port-A-Cath cavity was done followed by hemostasis, pressure was sustained for at least 5 minutes to prevent bleeding from the stick site Closure using vital 3/0 Vicryl sutures followed by 4-0 Monocryl then surgical glue followed by pressure dressing Count was completed for instruments, needles and sponges, patient was then taken to the recovery area in stable condition I was present for the whole entire procedure
--- NOTE | 2020-09-08 07:46 | PC.NURSE ---
off unit to surgery
--- NOTE | 2020-09-08 09:53 | ANE.PACU2 ---
Inpatient post-anesthesia follow up: Airway intact: Yes Vital signs: Temperature 98 F Pulse Rate [Monito r] 103 Pulse Rate 65 Respiratory Rate 17 Blood Pressure [Le ft Arm] 199/113 Blood Pressure 130/62 Pulse Oximetry 94 Oxygen Delivery Me thod Room Air Oxygen Flow Rate 2 Fraction of Inspir ed Oxygen 30 Hydration adequate: Yes Pain level: 1 Mental status: Baseline
[2020-09-08] MEDS: isosorbide mononitrate ER 30 mg Tablet PO (09:58)
[2020-09-08] MEDS: amlodipine 5 mg Tablet PO ×2 (10:30→19:22)
--- NOTE | 2020-09-08 10:36 | DCPLANNER ---
IMM completed with pt on 09/08/20 @ 0680. Copy of rights given to pt.
[2020-09-08 11:17] LABS: Glucose Point of Care 242 mg/dL (70-110)
[2020-09-08] MEDS: sevelamer 800 mg Tablet PO ×2 (11:41→19:22)
--- NOTE | 2020-09-08 13:16 | PM.PN ---
Subjective Subjective: Interval history: No new issues today, he feels fine. Very mild lower extremity edema, no other symptoms of hypervolemia. No uremic symptoms. Eating and drinking normally. Port removed today Medications: Reviewed: Yes Medication Review Details: Current Medications Hydrocodone Bitart/Acetaminophen (Hydrocodone-Acetaminophen 10-325 Mg Tablet) 1 tab PO Q6H PRN PRN Reason: Pain Last Admin: 09/05/20 22:11 Dose: 1 tab Documented by: Albuterol/Ipratropium (Ipratropium-Albuterol 3 Ml Neb) 3 ml INHALATION Q4H PRN PRN Reason: SHORTNESS OF BREATH Dextrose (Dextrose 50% Syringe 50 Ml) 25 ml IVP ONCE PRN; Protocol PRN Reason: hypoglycemia protocol Dextrose (Dextrose 50% Syringe 50 Ml) 50 ml IVP PRN PRN; Protocol PRN Reason: hypoglycemia protocol Furosemide (Furosemide 10 Mg/Ml Sdv 4ml) 40 mg IVP Q24H [facility] Last Admin: 09/05/20 23:00 Dose: 40 mg Documented by: Glucagon (Glucagon 1 Mg/Ml Inj 1 Ml) 1 mg IM ONCE PRN; Protocol PRN Reason: Adult Acute Hypoglycemia Prot. Dextrose (D5w) 500 mls @ 100 mls/hr IV ONCE PRN; Protocol PRN Reason: Adult Acute Hypoglycemia Prot Ceftriaxone Sodium 2,000 mg/ (Sodium Chloride) 50 mls @ 100 mls/hr IV Q24H [facility] Last Infusion: 09/05/20 23:29 Dose: Infused Documented by: Iron Sucrose 200 mg/ Sodium (Chloride) 110 mls @ 220 mls/hr IV Q24H [facility] Stop: 09/09/20 15:29 Last Infusion: 09/05/20 15:30 Dose: Infused Documented by: Ondansetron HCl (Ondansetron 2 Mg/Ml Sdv 2 Ml) 4 mg IVP Q6H PRN PRN Reason: NAUSEA AND VOMITING Sevelamer Carbonate (Sevelamer 800 Mg Tablet) 800 mg PO TID [facility] Last Admin: 09/05/20 20:36 Dose: 800 mg Documented by: Vitals/I&O/Wt Last Vital Signs Temp 97.8 F 09/08/20 11:50 Pulse 73 09/08/20 12:22 Resp 16 09/08/20 12:22 BP 188/93 09/08/20 12:22 Pulse Ox 94 09/08/20 08:10 09/07/20 09/08/20 09/08/20 22:59 06:59 14:59 Intake Total 530 / 770 50 / 820 410 / 410 Output Total 5 / 5 Balance 530 / 770 50 / 820 405 / 405 Weight last 48 hrs Weight 111.674 kg Weight 112.808 kg Physical Exam Narrative: EXAM NARRATIVE: Constitutional: Sedated and vented HEENT: Wet mucosa, no jvp, non icteric Lungs: Bilaterally clear without discernible wheeze, rales in all lung zones CVS: S1 S2, no murmurs Abdo: Soft, BS ok Ext 4: Minimal edema, peripheral perfusion with no cyanosis Urinary Catheter Management^: Barajas: Cath Placed During This Visit: yes Reason for Continuing Indwelling Catheter: Accurate Measurement of Urinary Output in Critically Ill Patients Urinary Catheter Date of Insertion: 09/03/20 Urinary Catheter Time of Insertion: 21:00 Data : 09/08/20 05:30 09/08/20 05:30 Micro: Microbiology 09/07/20 14:23 Blood Culture - Preliminary Blood SPECIMEN COLLECTED 09/04/20 12:00 Blood Culture - Preliminary Blood Staphylococcus aureus A&P Additional A&P Information 1. ESRD. Dialysis was planned for today, however, due to limitations on staffing, we can safely wait until tomorrow for him. Plan for dialysis tomorrow, 3K bath, 3 L ultrafiltration. Cont MWF schedule but will daily evaluate given his fragility Dose medications for GFR less than 15 on dialysis. 2. MSSA bacteremia On Abx, port to be removed, on Abx 3. Chemistry. Serum chemistry looks mildly aberrant, noncritical, we will continue to follow. 4. Hemodynamics. Remains robust 5. Anemia S/p Procrit on 09/04, iron low and will load with Venofer 200mg iv Qrx x 5 Thank you for our involvement in his care, as always it is a pleasure to follow these patients with you John Valentin MD Nephrology [phone] Patient seen and examined via telemedicine, with the assistance of the bedside RN > 25 min spent in evaluation and mgmt of patient Attestations Medical Necessity Statement*: mgmt of ESRD Coding Level of Care Code Acute Electronic Game Developer for Geniag Osmani
[2020-09-08] MEDS: iron sucrose 200 MG in sodium chloride 0.9% (100 ml) 100 ML 220 MG IV (14:15)
--- NOTE | 2020-09-08 14:21 | PC.NURSE ---
To hemodialysis via bed by SIMON solomon.
--- NOTE | 2020-09-08 17:59 | P.PN_ITS ---
Subjective Subjective: Interval history: Underwent port removal this morning. Tolerated procedure well. Undergoing HD today. Hemoglobin stable at 9.2 Medications: Reviewed: Yes Vitals/I&O/Wt Last Vital Signs Temp 97.8 F 09/08/20 11:50 Pulse 73 09/08/20 12:22 Resp 16 09/08/20 12:22 BP 188/93 09/08/20 12:22 Pulse Ox 94 09/08/20 08:10 09/08/20 09/08/20 09/08/20 06:59 14:59 22:59 Intake Total 50 / 820 520 / 520 Output Total 5 / 5 Balance 50 / 820 515 / 515 Weight last 48 hrs Weight 111.674 kg Weight 112.808 kg Physical Exam Narrative: EXAM NARRATIVE: GEN: Awake, alert and oriented, no acute distress CVS: S1S2 N RS: CTA B/L except crackles over RUL Abd: Soft, nt/nd , bs+ ELECTRICAL UNIT REBUILDER: no focal neuro deficits Urinary Catheter Management^: Barajas: Cath Placed During This Visit: yes Reason for Continuing Indwelling Catheter: Accurate Measurement of Urinary Output in Critically Ill Patients Urinary Catheter Date of Insertion: 09/03/20 Urinary Catheter Time of Insertion: 21:00 Data : 09/08/20 05:30 09/08/20 05:30 Micro: Microbiology 09/07/20 14:23 Blood Culture - Preliminary Blood NEGATIVE TO DATE Microbiology 09/07/20 14:23 Blood Blood Culture - Preliminary NEGATIVE TO DATE 09/04/20 12:00 Blood Blood Culture - Preliminary Staphylococcus aureus 09/04/20 11:50 Blood Blood Culture - Preliminary NEGATIVE TO DATE 09/03/20 23:17 Blood Blood Culture - Preliminary NEGATIVE TO DATE 09/03/20 20:53 Blood Blood Culture - Preliminary NEGATIVE TO DATE A&P Assessment and plan (1) Respiratory failure with hypoxia and hypercapnia: Status: Acute Qualifiers: Chronicity: acute Qualified Code(s): J96.01 - Acute respiratory failure with hypoxia; J96.02 - Acute respiratory failure with hypercapnia (2) Pulmonary edema: Secondary to fluid overload with underlying end-stage renal disease management as mentioned above Status: Acute Qualifiers: Chronicity: acute Qualified Code(s): J81.0 - Acute pulmonary edema (3) End stage renal disease on dialysis: Consulted nephro Status: Acute Additional A&P Information 55M with h/o CAD, CKD on MHD MWF recently admitted at [facility] 08/16-08/29 for NSTEMI, acute systolic CHF exacerbation, hypoxic hypercapneic respiratry failure from volume overload,MSSA bacteremia, source not defined planned treatment course for 14 days. Presented at [facility] on 09/03 with respiratory failure. # Acute hypoxic hypercapneic respiratory failure This is now resolved. Multifactorial related to systolic CHF exacerbation, pulmonary edema Recent MSSA pneumonia diagnosed at [facility], Last CT chest on 08/19 with bibasilar atelactasis. No gross consolidation, currently febrile, no leukocytosi s. Chest x-ray on September 03 with bilateral pulmonary infiltrates with some improvement on the right. No change overall. Extubated on 09/05, doing well currently , saturating between 91 to 93% on room air. # NSTEMI: signficant tropinin deltas, recent admission also with NSTEMI with peak trop at 990. Started on heparin infusion on 09/03, then discontinued 09/04 as Hb dropped to 6.4 ASA/plavix/heparin discontinued due to anemia. 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 FOBT negative on 09/06 # MSSA bacteremia, initially diagnosed on 08/17/20 at [facility]. Remained with persistent positive cultures between August 17 to August 20, 2020. Last clear blood culture noted to be August 22, 2020 MSSA also noted in urine at the time, more likely indicative of high grade bacteremia rather than UTI Source was not clearly identified at the time. TTE did not show any gross vegetations at the time. VJ was deferred due to esophageal bleeding. Patient has subclavian port in place x 4 years, unclear indication, port culture has now returned with staph aureus, awaiting susceptibility testing, presumably MSSA that was seen on recent admission. Given that this is a recurrent staph aureus bacteremia, per notes review it appears patient had staph aureus bacteremia back in 2019 as well, now with positive blood cultures, port removal was recommended and has been removed on 09/08/2020. We will need IV antibiotics for 6 weeks from the time of port removal. Start cefazolin 2 g IV 3 times a week after dialysis. Recent lumbar MRI was also performed at [facility] which did not show any signs of epidural abscess or discitis. ESR 69 lumbar MRI 08/19: no evidence of discitis TTE on 08/17: LVEF 47%, hypokinetic apicallatreal wall, VJ to evalute for vegetations needed to be deferred due to GI bleed. # CKD on HD Appreciate renal recommendations # Anemia: acute on chronic, recemnt GI blood loss, UGI findings as above. FOBT at bedside negative on 09/05 Scientologist, refused blood transfusion Currently on venofer and procrit with HD No contraindications from a medical or cardiology standpoint for port removal at this present time. DVT ppx: contraindicated currently, SCDs for now Full code Attestations Medical Necessity Statement*: Status post port removal today, blood culture thus far clear from September 07. Anticipate discharge in the upcoming 24 to 48 hours. Coding Level of Care Code Acute Flight Superintendent for Thomas Keen Diagnoses Respiratory failure with hypoxia and hypercapnia J96.01; J96.02 Chronicity: acute Pulmonary edema J81.0 Chronicity: acute End stage renal disease on dialysis N18.6; Z99.2
[2020-09-08 19:22] LABS: Glucose Point of Care 192 mg/dL (70-110)
[2020-09-08 21:22] LABS: Glucose Point of Care 242 mg/dL (70-110)
--- NOTE | 2020-09-08 21:52 | PC.NURSE ---
Patient has no complaints at this time. Will monitor.
--- NOTE | 2020-09-08 22:00 | PM.PN ---
Subjective Subjective: Interval history: Underwent dialysis today. Port-A-Cath was removed. Due to low blood pressure they are not able to pull out more fluid however he is well compensated. He denies chest pain Medications: Reviewed: Yes Medication Review Details: Current Medications Hydrocodone Bitart/Acetaminophen (Hydrocodone-Acetaminophen 10-325 Mg Tablet) 1 tab PO Q6H PRN PRN Reason: Pain Last Admin: 09/05/20 22:11 Dose: 1 tab Documented by: Albuterol/Ipratropium (Ipratropium-Albuterol 3 Ml Neb) 3 ml INHALATION Q4H PRN PRN Reason: SHORTNESS OF BREATH Dextrose (Dextrose 50% Syringe 50 Ml) 25 ml IVP ONCE PRN; Protocol PRN Reason: hypoglycemia protocol Dextrose (Dextrose 50% Syringe 50 Ml) 50 ml IVP PRN PRN; Protocol PRN Reason: hypoglycemia protocol Furosemide (Furosemide 10 Mg/Ml Sdv 4ml) 40 mg IVP Q24H [facility] Last Admin: 09/05/20 23:00 Dose: 40 mg Documented by: Glucagon (Glucagon 1 Mg/Ml Inj 1 Ml) 1 mg IM ONCE PRN; Protocol PRN Reason: Adult Acute Hypoglycemia Prot. Dextrose (D5w) 500 mls @ 100 mls/hr IV ONCE PRN; Protocol PRN Reason: Adult Acute Hypoglycemia Prot Ceftriaxone Sodium 2,000 mg/ (Sodium Chloride) 50 mls @ 100 mls/hr IV Q24H [facility] Last Infusion: 09/05/20 23:29 Dose: Infused Documented by: Iron Sucrose 200 mg/ Sodium (Chloride) 110 mls @ 220 mls/hr IV Q24H [facility] Stop: 09/09/20 15:29 Last Infusion: 09/05/20 15:30 Dose: Infused Documented by: Ondansetron HCl (Ondansetron 2 Mg/Ml Sdv 2 Ml) 4 mg IVP Q6H PRN PRN Reason: NAUSEA AND VOMITING Sevelamer Carbonate (Sevelamer 800 Mg Tablet) 800 mg PO TID [facility] Last Admin: 09/05/20 20:36 Dose: 800 mg Documented by: Vitals/I&O/Wt Last Vital Signs Temp 99.6 F 09/08/20 19:15 Pulse 71 09/08/20 21:40 Resp 16 09/08/20 20:22 BP 119/50 09/08/20 19:15 Pulse Ox 93 09/08/20 20:22 09/08/20 09/08/20 09/08/20 06:59 14:59 22:59 Intake Total 50 / 820 880 / 880 287 / 1167 Output Total 5 / 5 Balance 50 / 820 875 / 875 287 / 1162 Weight last 48 hrs Weight 246 lb 3.2 oz Weight 248 lb 11.2 oz Physical Exam Narrative: EXAM NARRATIVE: GENERAL: Patient is lethargic but oriented NECK: No jugular vein distension. HEENT: No cyanosis. No icterus. No pallor. HEART: Regular S1 and S2. No murmur, rub or gallop. LUNGS: Clear to auscultate bilaterally. ABDOMEN: Soft, nontender and nondistended. Positive bowel sounds. No guarding, rebound or tenderness. CENTRAL NERVOUS SYSTEM: Grossly nonfocal. EXTREMITIES: Lower extremities without edema bilaterally. Urinary Catheter Management^: Barajas: Cath Placed During This Visit: yes Reason for Continuing Indwelling Catheter: Accurate Measurement of Urinary Output in Critically Ill Patients Urinary Catheter Date of Insertion: 09/03/20 Urinary Catheter Time of Insertion: 21:00 Data : 09/08/20 05:30 09/08/20 05:30 Micro: Microbiology 09/03/20 20:53 Blood Culture - Final Blood NO GROWTH AFTER 5 DAYS 09/07/20 14:23 Blood Culture - Preliminary Blood NEGATIVE TO DATE A&P Assessment and plan (1) NSTEMI (non-ST elevated myocardial infarction): Continue conservative management continue to hold antiplatelet and anticoagulation due to severe anemia and not being able to transfuse secondary to restoration believes. Patient understand all risk benefit and understand the long-term prognosis remains guarded. Patient appeared to be stable from a cardiovascular perspective on today's visit continue current regimen Status: Acute (2) End stage renal disease on dialysis: Continue dialysis as per nephrology Status: Acute (3) Congestive heart failure: Well compensated. Status: Acute Qualifiers: Heart failure type: other Qualified Code(s): I50.9 - Heart failure, unspecified (4) Anemia: Improved hemoglobin today 9.2. 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
[2020-09-09] VITALS (7 sets, daily range): BP systolic 150–190; BP diastolic 67–79; PULSE 71–87; RESP 12–15; TEMP 36.8–37.2; O2SAT 93–97
[2020-09-09] MEDS: FUROsemide 10 mg/mL SDV 4mL 40 MG IVP (02:15)
--- NOTE | 2020-09-09 03:54 | PC.NURSE ---
Pt requested SCD's to be removed. Pt refuses to wear SCD's.
--- NOTE | 2020-09-09 05:00 | ECG_ITS ---
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 Measurements Intervals Leslie Rate: 71 P: 39 SD: 170 QRS: 98 QRSD: 115 T: 128 QT: 438 QTc: 478 Interpretive Statements SINUS RHYTHM BORDERLINE RIGHT AXIS DEVIATION [QRS AXIS > 90] MODERATE INTRAVENTRICULAR CONDUCTION DELAY [110+ ms QRS DURATION] MODERATE T-WAVE ABNORMALITY, CONSIDER ANTEROLATERAL ISCHEMIA [-0.1+ mV T WAVE IN V3-V6] Compared to ECG 09/04/2020 03:02:48 Intraventricular conduction delay now present T-wave abnormality still present Possible ischemia still present Electronically Signed On 09-11-2020 19:05:43 EXERCISE SCIENTIST by Ever Parekh M.D. [id number]
[2020-09-09 06:39] LABS: Glucose Point of Care 239 mg/dL (70-110)
[2020-09-09 07:22] LABS: Basophils # 0.1 10^3/uL (0.0-0.1); Basophils % 1.3 %; Eosinophils # 0.3 10^3/uL (0.0-0.8); Hematocrit 28.4 % (42.0-52.0); Hemoglobin 8.6 g/dL (11.7-16.6); Lymphocytes # 0.9 10^3/uL (0.8-4.8); Lymphocytes % 16.7 %; Mean Corpuscular HGB Conc 30.3 g/dL (30.0-36.0); Mean Corpuscular Volume 108.8 fL (80-94); Mean Platelet Volume 10.3 fL (7.4-10.4); Monocytes # 0.5 10^3/uL (0.2-0.9); Monocytes % 9.1 %; Neutrophils # 3.67 10^3/uL (1.8-7.7); Neutrophils % 66.7 %; Nucleated Red Blood Cells % 0 %; Platelet Count 189 10^3/cmm (130-400); Red Blood Count 2.61 10^6/uL (4.1-5.3); White Blood Count 5.5 10^3/uL (4.0-10.0)
[2020-09-09 07:37] LABS: Alanine Aminotransferase < 5 U/L (0-41); Albumin Level 3.5 g/dL (3.5-5.2); Alkaline Phosphatase 64 IU/L (40-130); Anion Gap 16.3 (5-19); Aspartate Amino Transferase 14 U/L (0-40); Blood Urea Nitrogen 25 mg/dL (6-20); Calcium 9.1 mg/dL (8.5-10.5); Carbon Dioxide 26 mmol/L (22-29); Chloride 99 mmol/L (98-107); Globulin 3.4 g/dL (1.3-4.6); Glomerular Filtration Rate 9.6 mL/min (90-130); Glucose 233 mg/dL (65-115); Osmolality Calculated 296 mOsm/kg (285-295); Potassium 4.3 mmol/L (3.5-5.1); Sodium 137 mmol/L (136-145); Total Bilirubin 0.2 mg/dL (0.15-1.2); Total Protein 6.9 g/dL (6.6-8.7)
[2020-09-09] MEDS: sevelamer 800 mg Tablet PO (07:49)
[2020-09-09] MEDS: amlodipine 5 mg Tablet PO (07:50)
[2020-09-09] MEDS: isosorbide mononitrate ER 60 mg Tablet PO (07:51)
[2020-09-09] MEDS: hyDRALAzine 25 mg Tablet PO (09:04)
[2020-09-09 11:30] LABS: Glucose Point of Care 311 mg/dL (70-110)
--- NOTE | 2020-09-09 12:03 | P.PN_ITS ---
Subjective Subjective: Interval history: No new issues today, he feels fine. Very mild lower extremity edema, no other symptoms of hypervolemia. No uremic symptoms. Eating and drinking normally. Port removed yesterday and dialysis went well Medications: Reviewed: Yes Medication Review Details: Current Medications Hydrocodone Bitart/Acetaminophen (Hydrocodone-Acetaminophen 10-325 Mg Tablet) 1 tab PO Q6H PRN PRN Reason: Pain Last Admin: 09/05/20 22:11 Dose: 1 tab Documented by: Albuterol/Ipratropium (Ipratropium-Albuterol 3 Ml Neb) 3 ml INHALATION Q4H PRN PRN Reason: SHORTNESS OF BREATH Dextrose (Dextrose 50% Syringe 50 Ml) 25 ml IVP ONCE PRN; Protocol PRN Reason: hypoglycemia protocol Dextrose (Dextrose 50% Syringe 50 Ml) 50 ml IVP PRN PRN; Protocol PRN Reason: hypoglycemia protocol Furosemide (Furosemide 10 Mg/Ml Sdv 4ml) 40 mg IVP Q24H [facility] Last Admin: 09/05/20 23:00 Dose: 40 mg Documented by: Glucagon (Glucagon 1 Mg/Ml Inj 1 Ml) 1 mg IM ONCE PRN; Protocol PRN Reason: Adult Acute Hypoglycemia Prot. Dextrose (D5w) 500 mls @ 100 mls/hr IV ONCE PRN; Protocol PRN Reason: Adult Acute Hypoglycemia Prot Ceftriaxone Sodium 2,000 mg/ (Sodium Chloride) 50 mls @ 100 mls/hr IV Q24H [facility] Last Infusion: 09/05/20 23:29 Dose: Infused Documented by: Iron Sucrose 200 mg/ Sodium (Chloride) 110 mls @ 220 mls/hr IV Q24H [facility] Stop: 09/09/20 15:29 Last Infusion: 09/05/20 15:30 Dose: Infused Documented by: Ondansetron HCl (Ondansetron 2 Mg/Ml Sdv 2 Ml) 4 mg IVP Q6H PRN PRN Reason: NAUSEA AND VOMITING Sevelamer Carbonate (Sevelamer 800 Mg Tablet) 800 mg PO TID [facility] Last Admin: 09/05/20 20:36 Dose: 800 mg Documented by: Vitals/I&O/Wt Last Vital Signs Temp 98.3 F 09/09/20 08:26 Pulse 75 09/09/20 08:26 Resp 12 09/09/20 08:26 BP 157/77 09/09/20 09:08 Pulse Ox 97 09/09/20 03:51 09/08/20 09/09/20 09/09/20 22:59 06:59 14:59 Intake Total 287 / 1167 958 / 2125 118 / 118 Balance 287 / 1162 958 / 2120 118 / 118 Weight last 48 hrs Weight 113.171 kg Weight 111.674 kg Physical Exam Narrative: EXAM NARRATIVE: Constitutional: Sedated and vented HEENT: Wet mucosa, no jvp, non icteric Lungs: Bilaterally clear without discernible wheeze, rales in all lung zones CVS: S1 S2, no murmurs Abdo: Soft, BS ok Ext 4: Minimal edema, peripheral perfusion with no cyanosis Urinary Catheter Management^: Barajas: Cath Placed During This Visit: yes Reason for Continuing Indwelling Catheter: Accurate Measurement of Urinary Output in Critically Ill Patients Urinary Catheter Date of Insertion: 09/03/20 Urinary Catheter Time of Insertion: 21:00 Data : 09/09/20 07:06 09/09/20 07:06 Micro: Microbiology 09/08/20 07:38 Catheter Tip Culture - Preliminary Central Line 09/04/20 12:00 Blood Culture - Preliminary Blood Staphylococcus aureus 09/04/20 11:50 Blood Culture - Preliminary Blood NEGATIVE TO DATE 09/03/20 23:17 Blood Culture - Final Blood NO GROWTH AFTER 5 DAYS 09/03/20 20:53 Blood Culture - Final Blood NO GROWTH AFTER 5 DAYS 09/07/20 14:23 Blood Culture - Preliminary Blood NEGATIVE TO DATE A&P Additional A&P Information 1. ESRD. Dialysis Friday if still in house Cont MWF schedule but will daily evaluate given his fragility Dose medications for GFR less than 15 on dialysis. 2. MSSA bacteremia On Abx, port removed 3. Chemistry. Serum chemistry looks mildly aberrant, noncritical, we will continue to follow. 4. Hemodynamics. Remains robust 5. 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
--- NOTE | 2020-09-09 12:20 | PM.PN ---
Subjective Subjective: Interval history: Patient is doing well. He denies complaints of chest pain, shortness of breath or palpitations. Hemoglobin has stayed stable and is 8.6 today. Vitals/I&O/Wt Last Vital Signs Temp 98.3 F 09/09/20 08:26 Pulse 75 09/09/20 08:26 Resp 12 09/09/20 08:26 BP 157/77 09/09/20 09:08 Pulse Ox 97 09/09/20 03:51 09/08/20 09/09/20 09/09/20 22:59 06:59 14:59 Intake Total 287 / 1167 958 / 2125 118 / 118 Balance 287 / 1162 958 / 2120 118 / 118 Weight last 48 hrs Weight 249 lb 8 oz Weight 246 lb 3.2 oz Physical Exam Narrative: EXAM NARRATIVE: GENERAL: Patient is alert, awake and oriented x3. [] NECK: No jugular vein distension. [] HEENT: No cyanosis. No icterus. No pallor. [] HEART: Regular S1 and S2. No murmur, rub or gallop. [] LUNGS: Clear to auscultate bilaterally. [] ABDOMEN: Soft, nontender and nondistended. Positive bowel sounds. No guarding, rebound or tenderness. [] CENTRAL NERVOUS SYSTEM: Grossly nonfocal. [] EXTREMITIES: Lower extremities with no edema bilaterally. Pulses palpable in the lower extremities, both dorsalis pedis and posterior tibial. [] Urinary Catheter Management^: Barajas: Cath Placed During This Visit: yes Reason for Continuing Indwelling Catheter: Accurate Measurement of Urinary Output in Critically Ill Patients Urinary Catheter Date of Insertion: 09/03/20 Urinary Catheter Time of Insertion: 21:00 Data : 09/09/20 07:06 09/09/20 07:06 Micro: Microbiology 09/08/20 07:38 Catheter Tip Culture - Preliminary Central Line 09/04/20 12:00 Blood Culture - Preliminary Blood Staphylococcus aureus 09/04/20 11:50 Blood Culture - Preliminary Blood NEGATIVE TO DATE 09/03/20 23:17 Blood Culture - Final Blood NO GROWTH AFTER 5 DAYS 09/03/20 20:53 Blood Culture - Final Blood NO GROWTH AFTER 5 DAYS 09/07/20 14:23 Blood Culture - Preliminary Blood NEGATIVE TO DATE A&P Assessment and plan (1) NSTEMI (non-ST elevated myocardial infarction): Management for now. Continue holding antiplatelet and anticoagulation due to severe anemia and the patient refuses to take blood transfusion secondary to adventist believes. Patient is stable to be discharged from cardiology standpoint. He understands the risks associated with inability to put him on antiplatelets and anticoagulation. Status: Acute (2) End stage renal disease on dialysis: Continue dialysis as per nephrology Status: Acute (3) Congestive heart failure: Well compensated. Status: Acute Qualifiers: Heart failure type: other Qualified Code(s): I50.9 - Heart failure, unspecified (4) Anemia: Hemoglobin is 8.6 today. Status: Acute Attestations Medical Necessity Statement*: Care expected to cross 2 midnights. 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
--- NOTE | 2020-09-09 12:42 | P.DS_ITS ---
Discharge Providers Date of Admission: 09/03/20 22:17 Date of Discharge: September 09, 2020 Attending Provider at Admission: Herbie Burns MD Attending Provider at Discharge: Karyn Rehman MD Primary Care Provider: Sandy Kelly MD Diagnoses at Discharge Discharge Diagnosis (1) NSTEMI (non-ST elevated myocardial infarction): Status: Acute (2) End stage renal disease on dialysis: Status: Acute (3) Congestive heart failure: Status: Acute Qualifiers: Heart failure type: other Qualified Code(s): I50.9 - Heart failure, unspecified (4) Anemia: Status: Acute (5) Infection due to Port-A-Cath: Status: Acute (6) MSSA bacteremia: Status: Acute Reason for Visit Reason for Visit: SOB Hospital Course Hospital Course 55M with h/o CAD, CKD on MHD MWF recently admitted at [facility] 08/16-08/29 for NSTEMI, acute systolic CHF exacerbation, hypoxic hypercapneic respiratry failure from volume overload,MSSA bacteremia, source not defined planned treatment course for 14 days at the time. Presented at [facility] on 09/03 with respiratory failure. # Acute hypoxic hypercapneic respiratory failure This is now resolved. Currently on RA at the time of discharge Multifactorial related to systolic CHF exacerbation, pulmonary edema Recent MSSA pneumonia diagnosed at [facility], Last CT chest on 08/19 with bibasilar atelactasis. No gross consolidation, no leukocytosis. Chest x-ray on September 03 with bilateral pulmonary infiltrates with some improvement on the right. No change overall comapred to early August. Extubated on 09/05, doing well currently , saturating between 91 to 93% on room air. # NSTEMI: signficant tropinin deltas, recent admission also with NSTEMI with peak trop at 990. Started on heparin infusion on 09/03, then discontinued 09/04 as Hb dropped to 6.4 ASA/plavix/heparin discontinued due to anemia. 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 FOBT negative on 09/06 needs outpatient f/up with cardiology High risk for future cardiac events Refused blood transfusion due to zoroastrianism beliefs # MSSA bacteremia, initially diagnosed on 08/17/20 at [facility]. Remained with persistent positive cultures between August 17 to August 20, 2020. Last clear blood culture noted to be August 22, 2020 MSSA also noted in urine at the time, more likely indicative of high grade bacteremia rather than UTI Source was not clearly identified at the time. TTE did not show any gross vegetations at the time. VJ was deferred due to esophageal bleeding. Patient had subclavian port in place x 4 years, unclear indication, Patient was febrile here, port culture has returned with MSSA on 09/06. Given that this is a recurrent staph aureus bacteremia, per notes review it appears patient had staph aureus bacteremia back in 2019 as well in addition to earlier this month, now with positive blood cultures, port removal was recommended and has been removed on 09/08/2020. We will need IV antibiotics for 6 weeks from the time of port removal. (09/08- 10/20/2020) Started on cefazolin 2 g IV 3 times a week after dialysis. No new central line placed, abx can be administred after HD. Recent lumbar MRI was also performed at [facility] on 08/19 which did not show any signs of epidural abscess or discitis. Again deferred VJ due to low Hb and recent esophageal bleed, management unlikely to change with VJ findings, no gross signs of heart failure, no EKG changes, low suspicion for valvular complications to warrant CT surgery. ESR 69 TTE on 08/17: LVEF 47%, hypokinetic apicallatreal wall, VJ to evalute for vegetations needed to be deferred due to GI bleed. f/up with infectious disease clinic on 10/24 While on cefazolin check cbc and cmp every 2 weeks and fax to ID clinic # CKD on HD Appreciate renal recommendations # Anemia: acute on chronic, recent GI blood loss, UGI findings as above. FOBT at bedside negative on 09/05 [employer], refused blood transfusion s/p venofer x 5 days and procrit with HD Hb currently stable at 7.8 # HTN: Hydralazine added to regimen at discharge, imdur increased to 60mg daily. Physical Exam Urinary Catheter Management^: Barajas: Cath Placed During This Visit: yes Reason for Continuing Indwelling Catheter: Accurate Measurement of Urinary Output in Critically Ill Patients Urinary Catheter Date of Insertion: 09/03/20 Urinary Catheter Time of Insertion: 21:00 Discharge Data Data Completed and Pending: Completed Studies During Hospitalization Category Date Time Status XR chest 1V [place] ble [id number] Stat Exams 09/03/20 03:22 Completed CV echo complete* [id number] Routine Ultrasound 09/04/20 23:22 Completed Pending at discharge Category Date Time Status Blood Culture Sta t Lab 09/04/20 12:00 Results Blood Culture Sta t Lab 09/07/20 14:23 Results Catheter Tip Cult ure Routine Lab 09/08/20 07:38 Results Vancomycin Trough Timed Lab 09/11/20 00:00 Ordered Labs from last 24 hours 09/09/20 09/09/20 09/09/20 11:24 07:06 07:06 WBC 5.5 RBC 2.61 L Hgb 8.6 L Hct 28.4 L MCV 108.8 H MCH 33.0 MCHC 30.3 RDW 17.0 H Plt Count 189 MPV 10.3 Neut % (Auto) 66.7 Lymph % (Auto) 16.7 [place] % (Auto) 9.1 Eos % (Auto) 6.0 Baso % (Auto) 1.3 Neut # (Auto) 3.67 Lymph # (Auto) 0.9 [place] # (Auto) 0.5 Eos # (Auto) 0.3 Baso # (Auto) 0.1 Nucleated RBC % (a uto) 0 Nucleated RBCs # 0.0 Sodium 137 Potassium 4.3 Chloride 99 Carbon Dioxide 26 Anion Gap 16.3 BUN 25 H Creatinine 6.1 H* GFR Calculation 9.6 L Glucose 233 H POC Glucose 311 H Calculated Osmolal ity 296 H Calcium 9.1 Total Bilirubin 0.2 AST 14 ALT < 5 Alkaline Phosphata se 64 Total Protein 6.9 Albumin 3.5 Globulin 3.4 09/09/20 09/08/20 09/08/20 06:31 21:19 19:16 WBC RBC Hgb Hct MCV MCH MCHC RDW Plt Count MPV Neut % (Auto) Lymph % (Auto) [place] % (Auto) Eos % (Auto) Baso % (Auto) Neut # (Auto) Lymph # (Auto) [place] # (Auto) Eos # (Auto) Baso # (Auto) Nucleated RBC % (a uto) Nucleated RBCs # Sodium Potassium Chloride Carbon Dioxide Anion Gap BUN Creatinine GFR Calculation Glucose POC Glucose 239 H 242 H 192 H Calculated Osmolal ity Calcium Total Bilirubin AST ALT Alkaline Phosphata se Total Protein Albumin Globulin Vitals: Last Vital Signs Temp 98.3 F 09/09/20 08:26 Pulse 75 09/09/20 08:26 Resp 12 09/09/20 08:26 BP 157/77 09/09/20 09:08 Pulse Ox 97 09/09/20 03:51 Discharge Plan Discharge Patient Disposition: Xfer SNF Condition: Stable Prescriptions: New amlodipine 5 mg Tablet 10 mg PO DAILY 30 Days Qty: 30 RF: 0 cefazolin 1 gram recon soln 2 g IV Q48H 42 Days Qty: 25 RF: 0 hydralazine 10 mg tablet 10 mg PO QID 30 Days Qty: 120 RF: 0 Continued cyclobenzaprine 10 mg Tablet 10 mg PO TID RF: 0 furosemide 40 mg Tablet 40 mg PO BID RF: 0 atorvastatin 20 mg Tablet 20 mg PO QPM RF: 0 hydrocodone-acetaminophen 10-325 mg Tablet 1 - 2 tab PO Q6H PRN (Reason: Pain) RF: 0 pantoprazole 40 mg Tablet,Delayed Release (Dr/Ec) 40 mg PO DAILY RF: 0 metoprolol tartrate 50 mg Tablet 50 mg PO BID RF: 0 nitroglycerin [Nitrostat] 0.4 mg Tablet, Sublingual 0.4 mg SUBLINGUAL Q5M PRN (Reason: chest pain) RF: 0 losartan 100 mg Tablet 100 mg PO DAILY RF: 0 duloxetine 60 mg Capsule, Delayed Rel Sprinkle 60 mg PO DAILY RF: 0 Tresiba U-100 Insulin 100 unit/mL solution 30 unit SUBCUT DAILY RF: 0 folic acid 1 mg Tablet 1 mg PO DAILY RF: 0 sevelamer carbonate [Renvela] 800 mg Tablet 800 mg PO TID RF: 0 cyanocobalamin (vitamin B-12) [Vitamin B-12] 1,000 mcg Tablet 1,000 mcg PO QMWF RF: 0 ergocalciferol (vitamin D2) 25,000 unit Capsule 50,000 unit PO Q7D RF: 0 cyanocobalamin (vitamin B-12) 1,000 mcg/mL solution 1,000 mcg IM EVERY OTHER DAY RF: 0 doxazosin 2 mg tablet 2 mg PO DAILY RF: 0 RenaPlex-D 800 mcg-12.5 mg -2,000 unit tablet 1 tab PO DAILY RF: 0 Changed isosorbide mononitrate 30 mg Tablet Extended Release 24 Hr 60 mg PO BID Qty: 60 RF: 0 Discontinued ceftriaxone 2 gram Recon Soln 2 g IV DAILY RF: 0 Discharge Orders: Discharge Order (Routine); Ordered 09/09/20 Ordered By: Karyn Rehman Referrals: Sandy Kelly MD [Primary Care Provider] - 7-10 days ([facility] will be calling to schedule a hospital followup to be seen in 1 week. If you don't hear from them by Friday, please give them a call. thank you) Donn Amaro MD [Physician] - 1 month ([facility] office will be calling to schedule a cardiology followup to be seen in 1 month. If you don't hear from them by Friday, please give them a call. thank you ) Karyn Rehman MD [Hospitalist] - 10/24/20 (Please keep the appointment that is already set on October [address] Rehman at her office in the [facility] at [address] [place] [address] for 5 weeks for antibiotics management ) Herbie Clark MD [Physician] - 2 weeks ([facility] will be calling to schedule a cardiology followup to be seen in 2 weeks. If you don't hear from them by Friday afternoon, please give them a call. thank you ) Discharge Diet: Cardiac, Diabetic and Low Cholesterol Discharge Activity: Increase activity as tolerated and As per PT/OT instructions Patient Instructions: Hydralazine (By mouth), Amlodipine (By mouth), Cefazolin (Injection) Activity Restrictions/Additional Instructions: obtain CBC, CMP and ESR every 2 weeks and fax to the infectious disease clinic located within the surgical specialty clinic Discharge Attestations Time Spent in Discharge Care*: greater than 30 min Quality Metrics Clinical Quality Measures During this hospital stay, did patient experience: None Coding Level of Care Code 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
--- NOTE | 2020-09-09 12:48 | PC.NURSE ---
report called to aleksander cadena Hand-off report called to leobardo.
--- NOTE | 2020-09-09 13:00 | PC.NURSE ---
pt refused Logistic care transportation He said he is calling his friend yen that will bring him to [facility]. Notified case mgcorrine Barkley on pt's refusal to have logistic care transport. Notified aleksander Juarez and she said it is okay for the friend or family member to drop off the pt. Pt is on his own decision.
--- NOTE | 2020-09-09 14:00 | PC.NURSE ---
Friend Shayy here to transport pt to [facility]. Informed friend and pt of pt's transition to [facility] for rehab. Both verbalizes understanding.
== END 2020-09-09 13:53 | disposition skilled nursing facility (03) | DRG 208 ==
LOC: ER 22:08 → ICU 22:50 → CSU 09-06 22:21
PROVIDERS: Internal Medicine Nephrology; Surgery; Admitting Provider Internal Medicine; Emergency Provider Emergency Medicine; PCP Internal Medicine; Visit Provider Student in an Organized Health Care Education/Training Program
PROC: 02PY33Z Removal of Infusion Device from Great Vessel, Percutaneous Approach (ICD-10-PCS; CPT 36589; principal; 2020-09-08 07:00)
DX: J96.01 Acute respiratory failure with hypoxia (principal); I22.2 Subsequent non-ST elevation (NSTEMI) myocardial infarction; I50.21 Acute systolic (congestive) heart failure; N18.6 End stage renal disease; J18.9 Pneumonia, unspecified organism; I21.4 Non-ST elevation (NSTEMI) myocardial infarction; T80.212A Local infection due to central venous catheter, initial encounter; I13.2 Hypertensive heart and chronic kidney disease with heart failure and with stage 5 chronic kidney disease, or end stage renal disease; I42.9 Cardiomyopathy, unspecified; K92.2 Gastrointestinal hemorrhage, unspecified; J96.02 Acute respiratory failure with hypercapnia; E11.22 Type 2 diabetes mellitus with diabetic chronic kidney disease; Z99.2 Dependence on renal dialysis; I25.10 Atherosclerotic heart disease of native coronary artery without angina pectoris; Z95.5 Presence of coronary angioplasty implant and graft; G89.29 Other chronic pain; M54.5 Low back pain; M79.7 Fibromyalgia; K21.9 Gastro-esophageal reflux disease without esophagitis; M19.90 Unspecified osteoarthritis, unspecified site; Z87.891 Personal history of nicotine dependence; D64.9 Anemia, unspecified; I25.2 Old myocardial infarction; I95.9 Hypotension, unspecified; A49.01 Methicillin susceptible Staphylococcus aureus infection, unspecified site; Y82.9 Unspecified medical devices associated with adverse incidents; Z79.891 Long term (current) use of opiate analgesic; D48.1 Neoplasm of uncertain behavior of connective and other soft tissue
CPT/HCPCS: 31500; 36415; 36416; 36591; 36600; 51702; 71045; 80048; 80053; 82310; 82803; 82805; 82962; 83540; 83550; 83605; 83615; 83880; 83970; 84100; 84484; 85025; 85378; 85610; 85651; 85730; 86140; 87040; 87070; 87075; 87077; 87186; 87205; 87426; 90935; 93005; 93306; 94002; 94003; 94640; 94799; 96365; 96366; 96367; 96368; 96372; 99291; 99292; J0330; J0690; J0696; J1265; J1644; J1756; J1815; J1940; J2250; J2405; J2704; J3010; J3370; J3490; J7030; Q3014; Q4081

== ENCOUNTER 2020-11-07 15:44 | Outpatient (CLI) | payer MEDICARE, MEDICAID, SELFPAY ==
--- NOTE | 2020-11-07 16:00 | MR_ITS ---
WS: [id number] MRI CERVICAL SPINE NONCONTRAST HISTORY: evaluate for discitis COMPARISON: 09/12/2014 Technique: Multiplanar, multisequence noncontrast imaging of the cervical spine. Normal cervical alignment. No acute marrow edema or fracture. Mild disc desiccation throughout the mo st significant at C6-7 and C7-T1. Signal within the cervical cord is normal. Visualized posterior fossa is unremarkable. Craniocervical junction, C1 and C2 relationship, odontoid process and soft tissues are normal. C2-C3: Normal. C3-C4: Mild osteophytic ridging no stenosis. C4-C5: Mild diffuse osteophytic ridging and facet arthritis. No stenosis. C5-C6: Mild diffuse osteophytic ridging with a central disc protrusion and annular fissure. Bilateral foraminal osteophytes cause mild bilateral foraminal stenosis. C6-C7: Diffuse moderate annular disc bulging and osteophytic ridging. Disc osteophyte complexes are c ausing central and bilateral foraminal stenosis. Moderate central with severe bilateral foraminal juliette nosis. C7-T1: Diffuse annular disc bulge and osteophytic ridging. Bilateral mild foraminal and central narro wing. Paraspinal soft tissue are normal. MR/MR cervical spin wo con* [id number] IMPRESSION: 1. No marrow edema or fracture. 2. Moderate central and severe bilateral foraminal stenosis at C6-7. 3. Mild central and bilateral foraminal stenosis at C7-T1. 4. Mild bilateral foraminal stenosis at C5-6. 5. Central foraminal stenoses are due to combination of disc and osteophyte di sease.
--- NOTE | 2020-11-07 16:45 | MR_ITS ---
WS: [id number] MRI THORACIC SPINE without contrast. HISTORY: evaluate for discitis COMPARISON: 04/13/2019 TECHNIQUE: Multiplanar sequences are performed in sagittal and axial planes. Marked RIGHT thoracic curvature with diffuse disc space narrowing and desiccation. No marrow edema or fracture. No fluid in the disc spaces. There is significant motion artifact on several of the sequences causing limited evaluation for areas of stenosis. There is no significant compromise of the nerve roots or central stenosis. There is asy mmetric disc space narrowing and foraminal narrowing due to the scoliosis and disc osteophyte disease . There is no cord contact. Moderate stenosis at the LEFT T8-9 foramen. Moderate stenosis on the LEFT at T10-11 and bilaterally at T11-12. MR/MR thoracic spin wo con* [id number] IMPRESSION: 1. Marked RIGHT thoracic curvature. 2. Cannot exclude discitis or osteomyelitis without IV contrast. There are no secondary findings to suggest an acute inflammatory process or infection. 3. No severe central canal stenosis.
== END 2020-11-07 15:45 | disposition home or self-care (01) ==
LOC: RADSHAW 15:51
PROVIDERS: PCP Internal Medicine; Visit Provider Student in an Organized Health Care Education/Training Program
DX: R78.81 Bacteremia (principal); B95.61 Methicillin susceptible Staphylococcus aureus infection as the cause of diseases classified elsewhere; M43.8X4 Other specified deforming dorsopathies, thoracic region; M48.02 Spinal stenosis, cervical region; M48.03 Spinal stenosis, cervicothoracic region; M25.78 Osteophyte, vertebrae
CPT/HCPCS: 72141; 72146

== ENCOUNTER 2021-04-05 12:37 | Outpatient (CLI) | payer MEDICARE, MEDICAID, SELFPAY ==
--- NOTE | 2021-04-05 12:49 | XR_ITS ---
WS: [id number] Chest 2 views, 04/05/2021 Clinical Data: SHORTNESS OF BREATH Comparison: Portable chest, 09/03/2020. Findings: No nodules, masses or effusions are seen. The heart is normal. The pulmonary vascularity is not increased. No pneumonia or pneumothorax is seen. The aortic arch and descending thoracic aorta s how tortuosity. XR/XR chest 2V* [id number] Impression: Atherosclerosis.
== END 2021-04-05 12:38 | disposition home or self-care (01) ==
PROVIDERS: PCP Internal Medicine; Visit Provider Internal Medicine Nephrology
DX: R06.02 Shortness of breath (principal); I70.90 Unspecified atherosclerosis
CPT/HCPCS: 71046

== ENCOUNTER 2021-05-06 10:05 | Emergency (ER) | payer MEDICARE, MEDICAID, SELFPAY ==
[2021-05-06 10:06] VITALS: BP 99/65; PULSE 74; RESP 20; TEMP 37.1; O2SAT 98; BMI 35.2
--- NOTE | 2021-05-06 10:36 | ECG_ITS ---
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 Measurements Intervals [place] Rate: 61 P: 10 PA: 183 QRS: 73 QRSD: 117 T: 82 QT: 455 QTc: 460 Interpretive Statements SINUS RHYTHM MODERATE INTRAVENTRICULAR CONDUCTION DELAY [110+ ms QRS DURATION] NONSPECIFIC ST & T-WAVE ABNORMALITY Compared to ECG 09/09/2020 05:33:17 Possible ischemia no longer present T-wave abnormality still present Electronically Signed On 05-06-2021 18:15:39 CDT by Ben Navas M.D. [id number]
--- NOTE | 2021-05-06 10:36 | XRR_ITS ---
PROCEDURE INFORMATION: Exam: XR Chest Exam date and time: 05/06/2021 10:36 AM Age: 56 years old Clinical indication: Dyspnea TECHNIQUE: Imaging protocol: XR of the chest. Views: 1 view. Total images: 1 COMPARISON: CR XR chest 2V* [id number] 04/05/2021 12:58 PM FINDINGS: Lungs: Trace atelectasis or scar noted in the left lung base and right mid lung. Pleural spaces: Unremarkable. No pleural effusion. No pneumothorax. Heart/Mediastinum: Heart is enlarged but stable when compared to the prior exam. Bones/joints: Osseous structures are unchanged from the prior exam. XR/XR chest 1V portable [id number] IMPRESSION: 1. Heart is enlarged but stable when compared to the prior exam. 2. Trace atelectasis or scar noted in the left lung base and right mid lung. Radiation Dose CTDIVOL = (mGy): DLP = (mGy-cm)
--- NOTE | 2021-05-06 11:43 | PC.NURSE ---
Pt bedded in room while this RN in room 11. Assuming care of this pt at 1140.
--- NOTE | 2021-05-06 12:01 | ED_ITS ---
HPI - SOB/Dyspnea General: Chief Complaint: Shortness of Breath/Dyspnea Stated Complaint: SOB Time Seen by Provider: 05/06/21 10:25 Source: patient Mode of arrival: EMS History of Present Illness: HPI Narrative: 56 year old male had an episode of sudden shortness of breath after waking up today- he felt like he couldnt blear the phlegm from his throat and get a full breath of air. No chest pain or palpitations No fever or cough EMS placed him on 6L [place] oxygen, although his initial pulse ox was in the low 90s Hx of DM, dialysis dependent, last dialysis was on friday no swelling or orthopnea at this time. symptoms have resolved and he is now back to baseline He says he is supposed to be getting a sleep study soon MD elicited complaint: shortness of breath, cough and anxiety Associated symptoms: Reports chest congestion; Deny abdominal pain, chest pain, diaphoresis, extremity pain, fever(s), lightheadedness, nausea, orthopnea, syncope or vomiting Review of Systems General: Reports: 10 or more systems reviewed and unremarkable except in HPI and below Const: Denies: fever(s), chills, body aches, change in appetite, change in weight, fatigue or diaphoresis Eyes: Denies: change in vision, blurry vision or blind spots ENMT: Reports: hoarseness and dry mouth; Denies: throat pain, uvular edema or odynophagia Card: Denies: chest pain, swelling of feet/ankles, lightheadedness, syncope, dyspnea on exertion or orthopnea Resp: Reports: dyspnea and chest congestion GI: Denies: abdominal pain, nausea or vomiting Musc: Denies: neck pain, back pain or extremity pain Skin/Breast: Denies: rash, pruritus, erythema or photosensitivity Neuro: Denies: headache(s), numbness in extremities, weakness in extremities or sensory changes Psych: Reports: anxiety PFSH ED PFSH: Medical History Anemia CAD (coronary artery disease) Cardiomyopathy Chronic back pain CKD (chronic kidney disease) Diabetes mellitus Diabetes mellitus, type II End stage renal disease on dialysis ESRD (end stage renal disease) Fibromyalgia GERD (gastroesophageal reflux disease) Hemodialysis access site with arteriovenous graft Hx of staphylococcal infection Hypertension Hypertensive emergency Lumbar disc disease Osteoarthritis Surgical History H/O circumcision History of cataract surgery History of coronary artery stent placement S/P carpal tunnel release S/P tonsillectomy Status post insertion of hemodialysis catheter Status post peritoneal dialysis Family History Mother Aneurysm Grandmother Cancer Sister Cancer Social History Smoking and tobacco status: former smoker Alcohol intake: never Lives independently: Yes Household members: none Housing: House Marital status: service: No Current occupational status: disabled History of recent travel: No Physical Exam Const: COMMON NORMALS: no acute distress and patient oriented x3 EXAM LIMITATIONS: altered mental status GENERAL APPEARANCE: cooperative, comfortable and well kempt; not in distress, not anxious and not lethargic ORIENTATION/CONSCIOUSNESS: Yes awake, Yes oriented to person and Yes oriented to place; not lethargic HENMT: COMMON NORMALS: normocephalic HEAD & SCALP: normocephalic FACE & SINUS: normal facial exam and face symmetric THROAT: no uvular edema Eye: COMMON NORMALS: Equal, round and reactive pupils present, EOMs intact bilaterally, conjunctivae normal and no scleral icterus CONJUNCTIVA: Yes conjunctivae normal PUPIL: Yes Equal, round and reactive pupils present Neck/C-Spine: COMMON NORMALS: no JVD Resp: COMMON NORMALS: normal respiratory effort, No use of accessory muscles and clear to auscultation bilaterally EFFORT & INSPECTION: Yes able to speak in complete sentences, Yes symmetric chest movement, No stridor, No Actively coughing and No retractions AUSCULTATION: clear to auscultation bilaterally Cardio: COMMON NORMALS: no JVD, regular rate and regular rhythm RATE: regular rate RHYTHM: regular rhythm GI: COMMON NORMALS: Normal to inspection, nondistended, normoactive bowel sounds present and Soft to palpation; negative for non-tender and negative for No hepatosplenomegaly present PALPATION: Yes Soft to palpation and No No hepatosplenomegaly present Extremity: COMMON NORMALS: normal to inspection, full ROM, capillary refill normal, no clubbing, cyanosis or edema and no pedal edema Neuro: COMMON NORMALS: patient oriented x3 SENSORIUM/ORIENTATION: Yes oriented to person, Yes oriented to place and No lethargic Psych: APPEARANCE: Yes well kempt Skin: COMMON NORMALS: no rashes or lesions noted, no wounds, turgor normal and no jaundice GENERAL SKIN EXAM: no rashes or lesions noted and turgor normal Course Vital Signs: Vital signs: Vital Signs Temperature 98.7 F 05/06/21 10:06 Pulse Rate 61 05/06/21 13:48 Respiratory Rate 17 05/06/21 13:48 Blood Pressure 206/84 05/06/21 13:48 Pulse Oximetry 98 05/06/21 13:48 MDM - SOB/Dyspnea MDM Narrative: Medical decision making narrative: 56 year old with a transient episode of dyspnea this morning after waking up. Now back to baseline Dialysis dependent: renal function at baseline, electrolytes ok No acute ischemial on EKG; improved from previous EKGs He has chronically elevated troponin levels at baseline, and in the absence of any current symptoms, i will hold off on ordering a cardiac panel. I was able to d/c the oxygen after arrival; he remained in the mid -high 90s my suspicion for acute PE is very low given his complete resolution of symptoms and normal oxygenation. No clinical indication of fluid overload- no JVD BP is chronically elevated, he has been working with his PCP and research dietitian to address this Stable for d/c Dialysis tomorrow Differential Diagnosis: Shortness of Breath Differential Diagnosis: Likely acute exacerbation of chronic obstructive airways disease, congestive heart failure and pulmonary embolism Medical Records: Attestation: I reviewed the patient's medical records. Lab Data: Attestation: I reviewed the patient's lab results. Labs: Lab Results 05/06/21 05/06/21 05/06/21 11:41 12:20 12:20 WBC 8.3 10^3/uL 10^3/ uL (4.0-10.0) RBC 3.32 10^6/uL L 10 ^6/uL (4.1-5.3) Hgb 10.9 g/dL L g/dL (11.7-16.6) Hct 33.7 % L % (42.0-52.0) MCV 101.5 fl H fl (80-94) MCH 32.8 pg pg (28.0-34.0) MCHC 32.3 g/dL g/dL (30.0-36.0) RDW 13.2 % % (12.1-15.1) Plt Count 182 10^3/cmm 10^3 /cmm (130-400) MPV 10.9 fL H fL (7.4-10.4) Neut % (Auto) 82.0 % % Lymph % (Auto) 9.1 % % Hall % (Auto) 5.0 % % Eos % (Auto) 2.8 % % Baso % (Auto) 0.7 % % Neut # (Auto) 6.83 10^3/uL 10^3 /uL (1.8-7.7) Lymph # (Auto) 0.8 10^3/uL 10^3/ uL (0.8-4.8) Hall # (Auto) 0.4 10^3/uL 10^3/ uL (0.2-0.9) Eos # (Auto) 0.2 10^3/uL 10^3/ uL (0.0-0.8) Baso # (Auto) 0.1 10^3/uL 10^3/ uL (0.0-0.1) Nucleated RBC % (a uto) 0 % % Nucleated RBCs # 0.0 /100WBC /100W BC Sodium 140 mmol/L mmol/L (136-145) Potassium 4.4 mmol/L mmol/L (3.5-5.1) Chloride 99 mmol/L mmol/L (98-107) Carbon Dioxide 32 mmol/L H mmol/ L (22-29) Anion Gap 13.4 (5-19) BUN 42 mg/dL H mg/dL (6-20) Creatinine 6.2 mg/dL H* mg/d L (0.7-1.2) GFR Calculation 9.4 mL/min L mL/m in (90-130) Glucose 304 mg/dL H mg/dL (65-115) Calculated Osmolal ity 312 mOsm/kg H mOs m/kg (285-295) Calcium 8.8 mg/dL mg/dL (8.5-10.5) Magnesium 2.2 mg/dL mg/dL (1.7-2.3) Total Bilirubin 0.4 mg/dL mg/dL (0.15-1.2) AST 22 U/L U/L (0-40) ALT 14 U/L U/L (0-41) Alkaline Phosphata se 143 IU/L H IU/L (40-130) Total Protein 7.1 g/dL g/dL (6.6-8.7) Albumin 3.9 g/dL g/dL (3.5-5.2) Globulin 3.2 g/dL g/dL (1.3-4.6) SARS-CoV-2 Ag (Rap id) Negative (Negative) EKG Data^: EKG 1: Attestation: I personally reviewed and interpreted this EKG as follows: EKG Interpretation Date: 05/06/21 Prior EKG tracings: available for review Ischemic changes: non-specific ST-T wave changes Computer Generated Interpretation: Normal sinus rhythm with a rate of 61, DC 183, QRS 117, QTc 450, normal axis, no acute ST segment elevation or depression. Resolution of T wave inversions in the anterior lateral leads when compared to previous EKG from 09/09/2020 Discharge Plan Discharge Patient Disposition: Home Clinical Impression: Dyspnea or other respiratory complaints Condition: Stable Prescriptions: No Action calcium acetate 667 mg tablet 667 mg PO TID RF: 0 diclofenac sodium 1 % gel 2 g topical QID RF: 0 metoprolol tartrate 50 mg tablet 25 mg PO BID RF: 0 losartan 100 mg tablet 25 mg PO DAILY RF: 0 isosorbide mononitrate 30 mg tablet extended release 24 hr 30 mg PO DAILY Qty: 90 RF: 0 cyclobenzaprine 10 mg Tablet 10 mg PO TID RF: 0 furosemide 40 mg Tablet 40 mg PO BID RF: 0 atorvastatin 20 mg Tablet 20 mg PO QPM RF: 0 hydrocodone-acetaminophen 10-325 mg Tablet 1 - 2 tab PO Q6H PRN (Reason: Pain) RF: 0 pantoprazole 40 mg Tablet,Delayed Release (Dr/Ec) 40 mg PO DAILY RF: 0 nitroglycerin [Nitrostat] 0.4 mg Tablet, Sublingual 0.4 mg SUBLINGUAL Q5M PRN (Reason: chest pain) RF: 0 duloxetine 60 mg Capsule, Delayed Rel Sprinkle 60 mg PO DAILY RF: 0 Tresiba U-100 Insulin 100 unit/mL solution 30 unit SUBCUT DAILY RF: 0 folic acid 1 mg Tablet 1 mg PO DAILY RF: 0 sevelamer carbonate [Renvela] 800 mg Tablet 800 mg PO TID RF: 0 ergocalciferol (vitamin D2) 25,000 unit Capsule 50,000 unit PO Q7D RF: 0 RenaPlex-D 800 mcg-12.5 mg -2,000 unit tablet 1 tab PO DAILY RF: 0 Discharge Orders: Discharge ED (Routine); Ordered 05/06/21 Ordered By: Tali Lerma Referrals: Sandy Kelly MD [Primary Care Provider] - Discharge Diet: Usual diet Discharge Activity: Increase activity as tolerated Patient Instructions: Dyspnea (ED) Activity Restrictions/Additional Instructions: Make sure to follow-up with your primary care doctor and research dietitian next week as scheduled. Continue your current medications. Return immediately to the ER if you develop chest pain, recurrent shortness of breath, dizziness, fever, or any other sudden changes. 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
[2021-05-06 12:35] LABS: Basophils # 0.1 10^3/uL (0.0-0.1); Basophils % 0.7 %; Eosinophils # 0.2 10^3/uL (0.0-0.8); Eosinophils % 2.8 %; Hematocrit 33.7 % (42.0-52.0); Hemoglobin 10.9 g/dL (11.7-16.6); Lymphocytes # 0.8 10^3/uL (0.8-4.8); Lymphocytes % 9.1 %; Mean Corpuscular HGB Conc 32.3 g/dL (30.0-36.0); Mean Corpuscular Hemoglobin 32.8 pg (28.0-34.0); Mean Corpuscular Volume 101.5 fl (80-94); Mean Platelet Volume 10.9 fL (7.4-10.4); Monocytes # 0.4 10^3/uL (0.2-0.9); Neutrophils # 6.83 10^3/uL (1.8-7.7); Nucleated Red Blood Cells % 0 %; Platelet Count 182 10^3/cmm (130-400); Red Blood Count 3.32 10^6/uL (4.1-5.3); Red Cell Distribution Width 13.2 % (12.1-15.1); White Blood Count 8.3 10^3/uL (4.0-10.0)
[2021-05-06 12:40] LABS: SARS Covid-2 Antigen Negative (Negative)
[2021-05-06 12:52] LABS: Alanine Aminotransferase 14 U/L (0-41); Albumin Level 3.9 g/dL (3.5-5.2); Alkaline Phosphatase 143 IU/L (40-130); Anion Gap 13.4 (5-19); Aspartate Amino Transferase 22 U/L (0-40); Blood Urea Nitrogen 42 mg/dL (6-20); Calcium 8.8 mg/dL (8.5-10.5); Carbon Dioxide 32 mmol/L (22-29); Chloride 99 mmol/L (98-107); Globulin 3.2 g/dL (1.3-4.6); Glomerular Filtration Rate 9.4 mL/min (90-130); Glucose 304 mg/dL (65-115); Magnesium 2.2 mg/dL (1.7-2.3); Osmolality Calculated 312 mOsm/kg (285-295); Potassium 4.4 mmol/L (3.5-5.1); Sodium 140 mmol/L (136-145); Total Bilirubin 0.4 mg/dL (0.15-1.2); Total Protein 7.1 g/dL (6.6-8.7)
[2021-05-06 13:48] VITALS: BP 206/84; PULSE 61; RESP 17; O2SAT 98
== END 2021-05-06 13:47 | disposition home or self-care (01) ==
PROVIDERS: Emergency Provider Family Medicine; PCP Internal Medicine
DX: R06.00 Dyspnea, unspecified (principal); I12.0 Hypertensive chronic kidney disease with stage 5 chronic kidney disease or end stage renal disease; E11.22 Type 2 diabetes mellitus with diabetic chronic kidney disease; N18.6 End stage renal disease; I25.10 Atherosclerotic heart disease of native coronary artery without angina pectoris; Z99.2 Dependence on renal dialysis; Z87.891 Personal history of nicotine dependence
CPT/HCPCS: 71045; 80053; 83735; 85025; 87426; 93005; 99283

== ENCOUNTER 2021-07-09 06:47 | Emergency (ER) | payer MEDICARE, MEDICAID, SELFPAY ==
[2021-07-09 06:53] VITALS: BP 216/88; PULSE 76; RESP 24; TEMP 37.1; O2SAT 95; BMI 36.6
--- NOTE | 2021-07-09 06:56 | W.ED.SOB ---
HPI - SOB/Dyspnea General: Chief Complaint: Shortness of Breath/Dyspnea Stated Complaint: SOB Time Seen by Provider: 07/09/21 06:55 History of Present Illness: HPI Narrative: 56-year-old male presents emergency room via EMS with complaints of shortness of breath. Patient is insulin-dependent diabetic with end-stage renal disease gets dialysis Friday. He denies any productive cough. He denies any chest pain. He just feels like he cannot get a deep breath. No orthopnea no chest pain no exacerbating or relieving factors. Is not normally on oxygen. He has not noticed excessive increase in leg swelling since his last dialysis run. He is scheduled for dialysis this morning approximately the time he arrives here. MD elicited complaint: shortness of breath Pertinent past history: diabetes and other (Incisional disease) Onset (ago): hour(s) Timing: constant Severity: mild Exacerbating factors: nothing Relieving factors: nothing Associated symptoms: Deny abdominal pain, chest congestion, chest pain, cough, diaphoresis, dizziness, extremity pain, fever(s), hemoptysis, lightheadedness, myalgias, nausea, orthopnea, palpitations, paresthesias, polydipsia, polyuria, rash, sense of impending doom, syncope or vomiting Treatment prior to arrival: oxygen Review of Systems Const: Denies: fever(s) or diaphoresis ENMT: Denies: throat pain, ear or mastoid pain, nasal discharge or nasal congestion Card: Denies: chest pain, palpitations, lightheadedness, syncope or orthopnea Resp: Denies: hemoptysis or chest congestion GI: Denies: abdominal pain, nausea or vomiting : Denies: flank pain, dysuria, urinary frequency or urinary urgency Musc: Denies: extremity pain Skin/Breast: Denies: rash or pruritus Neuro: Denies: dizziness Endo: Denies: polyuria or polydipsia PFSH ED PFSH: Medical History Anemia CAD (coronary artery disease) Cardiomyopathy Chronic back pain CKD (chronic kidney disease) Diabetes mellitus Diabetes mellitus, type II End stage renal disease on dialysis ESRD (end stage renal disease) Essential hypertension Fibromyalgia GERD (gastroesophageal reflux disease) Hemodialysis access site with arteriovenous graft Hx of staphylococcal infection Hypertension Hypertensive emergency Lumbar disc disease Osteoarthritis Surgical History H/O circumcision History of cataract surgery History of coronary artery stent placement S/P carpal tunnel release S/P tonsillectomy Status post insertion of hemodialysis catheter Status post peritoneal dialysis Family History Mother Aneurysm Grandmother Cancer Sister Cancer Social History Smoking and tobacco status: former smoker Alcohol intake: never Lives independently: Yes Household members: none Housing: House Marital status: service: No Current occupational status: disabled History of recent travel: No Physical Exam Const: COMMON NORMALS: no acute distress GENERAL APPEARANCE: cooperative and comfortable ORIENTATION/CONSCIOUSNESS: Yes awake, Yes oriented to person, Yes oriented to place and Yes oriented to time HENMT: COMMON NORMALS: normocephalic, atraumatic and hearing grossly normal bilaterally HEAD & SCALP: normocephalic and atraumatic Neck/C-Spine: COMMON NORMALS: no JVD Resp: COMMON NORMALS: normal respiratory effort, No retractions, No use of accessory muscles and clear to auscultation bilaterally AUSCULTATION: clear to auscultation bilaterally Cardio: COMMON NORMALS: no JVD, regular rate, regular rhythm and No murmurs present (Cardio) RATE: regular rate RHYTHM: regular rhythm GI: COMMON NORMALS: Soft to palpation and No hepatosplenomegaly present AUSCULTATION: Yes normoactive bowel sounds PALPATION: Yes Soft to palpation, No Tenderness to palpation present (GI), No Guarding due to palpation present (GI) and Yes No hepatosplenomegaly present Extremity: OTHER: Fistula medial aspect fold right upper arm appears normal also infection redness or inflammation. Neuro: SENSORIUM/ORIENTATION: Yes oriented to person, Yes oriented to place and Yes oriented to time Skin: COMMON NORMALS: no rashes or lesions noted GENERAL SKIN EXAM: no rashes or lesions noted Course Vital Signs: Vital signs: Vital Signs Temperature 98.7 F 07/09/21 06:53 Pulse Rate 77 07/09/21 07:27 Respiratory Rate 24 H 07/09/21 06:53 Blood Pressure 227/90 07/09/21 07:27 Pulse Oximetry 91 07/09/21 07:27 MDM - SOB/Dyspnea MDM Narrative: Medical decision making narrative: Patient has significant hyperkalemia. Treatment started initially here. He is not hypoxic. Does not appear to be any overt congestive heart failure. Think his best course of action would be to undergo his regular dialysis today. We called the dialysis clinic they could not get him in until about 1 or 130. We already begin treatment for his hyperkalemia did not feel comfortable discharging him home if he was not going directly to dialysis. We made arrangements for him to get a ride about 1 hour prior to his dialysis treatment and we are going to monitor him here until then including repeating a potassium. Patient became frustrated he wanted to leave we were not able to convince him otherwise he called for his own ride to go to the dialysis treatment center. Nurse discussed with him and he refused to wait until just prior to his dialysis time so we could monitor him in the interim. Patient ultimately left AMA. Patient was advised by nursing staff of potential complications of hyperkalemia including arrhythmia and . Lab Data: Labs: Lab Results 07/09/21 07/09/21 07/09/21 06:56 07:55 07:55 WBC 8.5 10^3/uL 10^3/ uL (4.0-10.0) RBC 3.68 10^6/uL L 10 ^6/uL (4.1-5.3) Hgb 11.3 g/dL L g/dL (11.7-16.6) Hct 35.1 % L % (42.0-52.0) MCV 95.4 fl H fl (80-94) MCH 30.7 pg pg (28.0-34.0) MCHC 32.2 g/dL g/dL (30.0-36.0) RDW 13.6 % % (12.1-15.1) Plt Count 158 10^3/cmm 10^3 /cmm (130-400) MPV 10.8 fL H fL (7.4-10.4) Neut % (Auto) 81.7 % % Lymph % (Auto) 8.8 % % [place]herty % (Auto) 5.3 % % Eos % (Auto) 3.1 % % Baso % (Auto) 0.6 % % Neut # (Auto) 6.94 10^3/uL 10^3 /uL (1.8-7.7) Lymph # (Auto) 0.8 10^3/uL 10^3/ uL (0.8-4.8) [place]herty # (Auto) 0.5 10^3/uL 10^3/ uL (0.2-0.9) Eos # (Auto) 0.3 10^3/uL 10^3/ uL (0.0-0.8) Baso # (Auto) 0.1 10^3/uL 10^3/ uL (0.0-0.1) Nucleated RBC % (a uto) 0 % % Nucleated RBCs # 0.0 /100WBC /100W BC Sodium 135 mmol/L L mmol /L (136-145) Potassium 6.4 mmol/L H mmol /L (3.5-5.1) Chloride 98 mmol/L mmol/L (98-107) Carbon Dioxide 22 mmol/L mmol/L (22-29) Anion Gap 21.4 H (5-19) BUN 92 mg/dL H* D mg/ dL (6-20) Creatinine 10.7 mg/dL H* mg/ dL (0.7-1.2) GFR Calculation 5.0 mL/min L mL/m in (90-130) Glucose 333 mg/dL H mg/dL (65-115) POC Glucose 342 mg/dL H mg/dL (70-110) Calculated Osmolal ity 321 mOsm/kg H mOs m/kg (285-295) Calcium 7.6 mg/dL L mg/dL (8.5-10.5) Total Bilirubin 0.4 mg/dL mg/dL (0.15-1.2) AST 41 U/L H U/L (0-40) ALT 37 U/L U/L (0-41) Alkaline Phosphata se 170 IU/L H IU/L (40-130) Total Protein 7.3 g/dL g/dL (6.6-8.7) Albumin 4.1 g/dL g/dL (3.5-5.2) Globulin 3.2 g/dL g/dL (1.3-4.6) Discharge Plan Discharge Patient Disposition: Left Against Medical Advice Clinical Impression: End stage renal disease on dialysis, Hyperkalemia Condition: Stable Prescriptions: No Action diclofenac sodium 1 % gel 2 g topical QID RF: 0 amlodipine 5 mg tablet 5 mg PO .HS Qty: 90 RF: 3 losartan 100 mg tablet 100 mg PO DAILY Qty: 90 RF: 3 cyanocobalamin (vitamin B-12) 1,000 mcg/mL solution 1,000 mcg IM .3XWeekly Qty: 1 RF: 0 metoprolol tartrate 50 mg tablet 25 mg PO BID RF: 0 isosorbide mononitrate 30 mg tablet extended release 24 hr 30 mg PO DAILY Qty: 90 RF: 3 atorvastatin 20 mg Tablet 20 mg PO QPM RF: 0 hydrocodone-acetaminophen 10-325 mg Tablet 1 - 2 tab PO Q6H PRN (Reason: Pain) RF: 0 pantoprazole 40 mg Tablet,Delayed Release (Dr/Ec) 40 mg PO DAILY RF: 0 nitroglycerin [Nitrostat] 0.4 mg Tablet, Sublingual 0.4 mg SUBLINGUAL Q5M PRN (Reason: chest pain) RF: 0 duloxetine 60 mg Capsule, Delayed Rel Sprinkle 60 mg PO DAILY RF: 0 Tresiba U-100 Insulin 100 unit/mL solution 30 unit SUBCUT DAILY RF: 0 ergocalciferol (vitamin D2) 25,000 unit Capsule 50,000 unit PO Q7D RF: 0 Referrals: Sandy Kelly MD [Primary Care Provider] - Patient Instructions: Opioid Safety Coding Level of Care Code ED Abalone Diver for Chg Fwd Exam Detailed
[2021-07-09 06:59] LABS: Glucose Point of Care 342 mg/dL (70-110)
--- NOTE | 2021-07-09 07:14 | XRR_ITS ---
PROCEDURE INFORMATION: Exam: XR Chest Exam date and time: 07/09/2021 7:14 AM Age: 56 years old Clinical indication: Prior surgery; Surgery date: 6+ months; Surgery type: Heart stent. Port for vein access; Patient HX: Shortness of breath starting this morning. Getting a little better now. ; Additional info: Dyspnea/cough TECHNIQUE: Imaging protocol: XR of the chest. Views: 1 view. COMPARISON: CR XR chest 1V portable [id number] 05/06/2021 11:02 AM FINDINGS: Lungs: Stable mild basilar atelectasis or fibrosis. Pleural spaces: Unremarkable. No pleural effusion. No pneumothorax. Heart/Mediastinum: Stable cardiomegaly. Bones/joints: There is a thoracic scoliosis convex to the right. XR/XR chest 1V portable [id number] IMPRESSION: Cardiomegaly. No acute abnormality.
--- NOTE | 2021-07-09 07:15 | ECG_ITS ---
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 Measurements Intervals [place] Rate: 75 P: 38 MN: 213 QRS: 97 QRSD: 116 T: 69 QT: 417 QTc: 469 Interpretive Statements SINUS RHYTHM WITH FIRST DEGREE AV BLOCK BORDERLINE RIGHT AXIS DEVIATION [QRS AXIS > 90] MODERATE INTRAVENTRICULAR CONDUCTION DELAY [110+ ms QRS DURATION] Compared to ECG 05/06/2021 11:49:48 First degree AV block now present T-wave abnormality no longer present Electronically Signed On 07-09-2021 15:30:50 CLINICAL REHABILITATION AIDE by Meaghan Casey M.D. [email or web address]
[2021-07-09 07:27] VITALS: BP 227/90; PULSE 77; O2SAT 91
[2021-07-09 08:08] LABS: Basophils # 0.1 10^3/uL (0.0-0.1); Basophils % 0.6 %; Eosinophils # 0.3 10^3/uL (0.0-0.8); Eosinophils % 3.1 %; Hematocrit 35.1 % (42.0-52.0); Hemoglobin 11.3 g/dL (11.7-16.6); Lymphocytes # 0.8 10^3/uL (0.8-4.8); Lymphocytes % 8.8 %; Mean Corpuscular HGB Conc 32.2 g/dL (30.0-36.0); Mean Corpuscular Hemoglobin 30.7 pg (28.0-34.0); Mean Corpuscular Volume 95.4 fl (80-94); Mean Platelet Volume 10.8 fL (7.4-10.4); Monocytes # 0.5 10^3/uL (0.2-0.9); Monocytes % 5.3 %; Neutrophils # 6.94 10^3/uL (1.8-7.7); Neutrophils % 81.7 %; Nucleated Red Blood Cells % 0 %; Platelet Count 158 10^3/cmm (130-400); Red Blood Count 3.68 10^6/uL (4.1-5.3); Red Cell Distribution Width 13.6 % (12.1-15.1); White Blood Count 8.5 10^3/uL (4.0-10.0)
[2021-07-09 08:34] LABS: Alanine Aminotransferase 37 U/L (0-41); Albumin Level 4.1 g/dL (3.5-5.2); Alkaline Phosphatase 170 IU/L (40-130); Anion Gap 21.4 (5-19); Aspartate Amino Transferase 41 U/L (0-40); Calcium 7.6 mg/dL (8.5-10.5); Carbon Dioxide 22 mmol/L (22-29); Chloride 98 mmol/L (98-107); Globulin 3.2 g/dL (1.3-4.6); Glucose 333 mg/dL (65-115); Osmolality Calculated 321 mOsm/kg (285-295); Potassium 6.4 mmol/L (3.5-5.1); Sodium 135 mmol/L (136-145); Total Bilirubin 0.4 mg/dL (0.15-1.2); Total Protein 7.3 g/dL (6.6-8.7)
[2021-07-09 08:41] LABS: Blood Urea Nitrogen 92 mg/dL (6-20)
== END 2021-07-09 11:33 | disposition left against medical advice (07) ==
PROVIDERS: Emergency Provider Family Medicine; PCP Internal Medicine
DX: E87.5 Hyperkalemia (principal); I12.0 Hypertensive chronic kidney disease with stage 5 chronic kidney disease or end stage renal disease; E11.22 Type 2 diabetes mellitus with diabetic chronic kidney disease; N18.6 End stage renal disease; Z99.2 Dependence on renal dialysis; I25.10 Atherosclerotic heart disease of native coronary artery without angina pectoris; Z87.891 Personal history of nicotine dependence; Z79.4 Long term (current) use of insulin; Z53.21 Procedure and treatment not carried out due to patient leaving prior to being seen by health care provider
CPT/HCPCS: 36416; 71045; 80053; 82962; 85025; 93005; 99283; J1815

== ENCOUNTER → 2021-12-27 08:25 | Outpatient (BNVA) | payer MEDICARE, MEDICAID, SELFPAY | PROVIDERS: PCP Internal Medicine; Visit Provider Podiatrist Foot & Ankle Surgery | DX: E11.621 Type 2 diabetes mellitus with foot ulcer (principal); L97.529 Non-pressure chronic ulcer of other part of left foot with unspecified severity; N18.6 End stage renal disease; Z99.2 Dependence on renal dialysis; E11.9 Type 2 diabetes mellitus without complications | CPT/HCPCS: 99214 ==

== ENCOUNTER → 2022-01-03 10:05 | Outpatient (BNVA) | payer MEDICARE, MEDICAID, SELFPAY | PROVIDERS: PCP Internal Medicine; Visit Provider Podiatrist Foot & Ankle Surgery | DX: E11.621 Type 2 diabetes mellitus with foot ulcer (principal); L97.529 Non-pressure chronic ulcer of other part of left foot with unspecified severity; L97.519 Non-pressure chronic ulcer of other part of right foot with unspecified severity; N18.6 End stage renal disease; Z99.2 Dependence on renal dialysis; T25.229A Burn of second degree of unspecified foot, initial encounter; Z79.84 Long term (current) use of oral hypoglycemic drugs | CPT/HCPCS: 99214 ==

== ENCOUNTER → 2022-01-10 12:12 | Outpatient (BNVA) | payer MEDICARE, MEDICAID, SELFPAY | PROVIDERS: PCP Internal Medicine; Visit Provider Podiatrist Foot & Ankle Surgery | DX: E11.621 Type 2 diabetes mellitus with foot ulcer (principal); L97.419 Non-pressure chronic ulcer of right heel and midfoot with unspecified severity; L97.429 Non-pressure chronic ulcer of left heel and midfoot with unspecified severity; N18.6 End stage renal disease; Z99.2 Dependence on renal dialysis; Z79.4 Long term (current) use of insulin | CPT/HCPCS: 99213; 99214 ==

== ENCOUNTER → 2022-01-24 10:49 | Outpatient (BNVA) | payer MEDICARE, MEDICAID, SELFPAY | PROVIDERS: PCP Internal Medicine; Visit Provider Podiatrist Foot & Ankle Surgery | DX: E11.621 Type 2 diabetes mellitus with foot ulcer (principal); L97.419 Non-pressure chronic ulcer of right heel and midfoot with unspecified severity; L97.421 Non-pressure chronic ulcer of left heel and midfoot limited to breakdown of skin; N18.6 End stage renal disease; Z99.2 Dependence on renal dialysis; E11.9 Type 2 diabetes mellitus without complications; Z79.4 Long term (current) use of insulin; L97.429 Non-pressure chronic ulcer of left heel and midfoot with unspecified severity | CPT/HCPCS: 99214 ==

== ENCOUNTER → 2022-02-14 10:37 | Outpatient (BNVA) | payer MEDICARE, MEDICAID, SELFPAY | PROVIDERS: PCP Internal Medicine; Visit Provider Podiatrist Foot & Ankle Surgery | DX: T25.221A Burn of second degree of right foot, initial encounter (principal); T25.222A Burn of second degree of left foot, initial encounter; X58.XXXA Exposure to other specified factors, initial encounter; L97.519 Non-pressure chronic ulcer of other part of right foot with unspecified severity; L97.529 Non-pressure chronic ulcer of other part of left foot with unspecified severity; Z79.4 Long term (current) use of insulin | CPT/HCPCS: 99214 ==

== ENCOUNTER → 2022-02-21 13:14 | Outpatient (BNVA) | payer MEDICARE, MEDICAID, SELFPAY | PROVIDERS: PCP Internal Medicine; Visit Provider Podiatrist Foot & Ankle Surgery | DX: L97.519 Non-pressure chronic ulcer of other part of right foot with unspecified severity (principal); L97.529 Non-pressure chronic ulcer of other part of left foot with unspecified severity; X58.XXXA Exposure to other specified factors, initial encounter; Z79.4 Long term (current) use of insulin; E11.621 Type 2 diabetes mellitus with foot ulcer; T25.229A Burn of second degree of unspecified foot, initial encounter; N18.6 End stage renal disease; Z99.2 Dependence on renal dialysis; E11.9 Type 2 diabetes mellitus without complications | CPT/HCPCS: 99214 ==

== ENCOUNTER → 2022-03-01 12:37 | Outpatient (BNVA) | payer MEDICARE, MEDICAID, SELFPAY | PROVIDERS: PCP Internal Medicine; Visit Provider Podiatrist Foot & Ankle Surgery | DX: E11.621 Type 2 diabetes mellitus with foot ulcer (principal); L97.523 Non-pressure chronic ulcer of other part of left foot with necrosis of muscle; N18.6 End stage renal disease; Z99.2 Dependence on renal dialysis; Z79.4 Long term (current) use of insulin | CPT/HCPCS: 11043 ==

== ENCOUNTER 2022-03-01 14:18 | Outpatient (CLI) | payer MEDICARE, MEDICAID, SELFPAY | END 2022-03-01 14:19 | disposition home or self-care (01) | LOC: SPT 14:20 | PROVIDERS: PCP Internal Medicine; Visit Provider Podiatrist Foot & Ankle Surgery | DX: Z46.89 Encounter for fitting and adjustment of other specified devices (principal); T25.229 Burn of second degree of unspecified foot; X58.XXXS Exposure to other specified factors, sequela | CPT/HCPCS: 73630; 87070; 87075; 87077; 87186; 87205; 97760; L4361 ==

== ENCOUNTER 2022-03-02 14:45 | Inpatient (IN) | payer MEDICARE, MEDICAID, SELFPAY ==
[2022-03-02 15:26] VITALS: BP 147/69; PULSE 71; RESP 18; TEMP 36.9; O2SAT 98; BMI 35.2
--- NOTE | 2022-03-02 16:24 | W.ED.GENADLT ---
HPI - General Adult General: Chief complaint: General Medical Stated complaint: sent for admission by Dr. Enciso Time Seen by Provider: 03/02/22 16:24 History of Present Illness: Mr Jett is a 56-year-old gentleman with complex past medical history including hypertension, hyperlipidemia, CAD with cardiomyopathy, ESRD on hemodialysis, diabetes, history of foot wounds who presents to the emergency department due to concern over infected diabetic foot ulcer. He reports approximately 1 week history of generalized unwell feeling with some nausea and chills. He tested himself for COVID which was negative. He received IV antibiotics with dialysis and was started on levofloxacin. He followed up with podiatry yesterday and appears to have superinfection of chronic wounds with evidence of deep tracking and deep layer necrosis. Patient endorses increased pain and swelling. Density symptoms is moderate. Course has worsened. He was recommended to come to the hospital yesterday for direct admission however had social circumstances which prohibited this and thus he returned today for admission. No other specific changes in health, exacerbating, or alleviating factors identified. Onset (ago): day(s) Location: left and lower extremity Severity: moderate Quality: other Pain Consistency: constant Relieving factors: none Exacerbating factors: movement Associated symptoms: Reports fevers/chills and nausea Review of Systems General: Reports: 10 or more systems reviewed and unremarkable except in HPI and below GI: Reports: nausea PFSH ED PFSH: Medical History Anemia CAD (coronary artery disease) Cardiomyopathy Chronic back pain CKD (chronic kidney disease) Congestive heart failure Diabetes mellitus Diabetes mellitus, type II End stage renal disease on dialysis ESRD (end stage renal disease) Essential hypertension Fibromyalgia GERD (gastroesophageal reflux disease) Hemodialysis access site with arteriovenous graft Hx of staphylococcal infection Hypertension Hypertensive emergency Infection due to Port-A-Cath Lumbar disc disease MSSA bacteremia NSTEMI (non-ST elevated myocardial infarction) Osteoarthritis Surgical History H/O circumcision History of cataract surgery History of coronary artery stent placement S/P carpal tunnel release S/P tonsillectomy Status post insertion of hemodialysis catheter Status post peritoneal dialysis Family History Mother Aneurysm Grandmother Cancer Sister Cancer Social History Smoking and tobacco status: never smoked Alcohol intake: never Lives independently: Yes Household members: none Housing: House Marital status: service: No Current occupational status: disabled History of recent travel: No Physical Exam Const: COMMON NORMALS: alert GENERAL APPEARANCE: cooperative, well developed and ill appearing (Moderately) HENMT: COMMON NORMALS: normocephalic and atraumatic HEAD & SCALP: normocephalic and atraumatic Eye: COMMON NORMALS: conjunctivae normal CONJUNCTIVA: Yes conjunctivae normal SCLERA: sclerae normal Neck/C-Spine: COMMON NORMALS: supple GENERAL: Yes trachea midline Resp: COMMON NORMALS: normal respiratory effort and clear to auscultation bilaterally EFFORT & INSPECTION: Yes able to speak in complete sentences AUSCULTATION: clear to auscultation bilaterally Cardio: COMMON NORMALS: regular rate and regular rhythm RATE: regular rate RHYTHM: regular rhythm GI: COMMON NORMALS: Soft to palpation PALPATION: Yes Soft to palpation and No Tenderness to palpation present (GI) PERCUSSION: normal to percussion Extremity: NARRATIVE EXTREMITY EXAM: Right foot with erythematous ulceration with some drainage near the fifth metatarsal. Left foot with large wound in the fifth toe with tracking and tunneling with purulent drainage and erythema with proximal streaking. GENERAL: Yes edema Neuro: COMMON NORMALS: moves all extremities SENSORIUM/ORIENTATION: Yes alert and No Orientation impaired Psych: COMMON NORMALS: mental status grossly normal and Normal thought process present THOUGHT PROCESS: Normal thought process present Course ED course: - Patient was seen and evaluated by me at bedside - Patient placed on cardiac monitors, IV access obtained - Initial evaluation notable for exam as above. Foot wounds concerning for acute infection - Labs and xrays personally interpreted by me -Antibiotics, analgesia, and antiemetic given - Labs notable for no leukocytosis, normocytic anemia. Inflammatory markers elevated. Metabolic panel consistent with known end-stage renal disease without acute ED requirement for dialysis. - Imaging notable for no acute fracture identified or acute acute evidence of osteomyelitis per radiology report - Upon serial reexamination after treatment the patient was improved with regards to pain - Based on patient history, evaluation, and testing as interpreted the most likely cause of the patient's condition is acute infected diabetic foot wound requiring operative intervention. Discussed with podiatry service who was consulted. - The results of ED evaluation were discussed with the patient including plan for admission due to requirement for level of care not available if discharged to prevent significant worsening/deterioration. - Admitting service was contacted and Dr Gonzalez with the hospitalist service agreed to admit the patient - Patient was admitted without further deterioration or significant events. Note: Click bubbles or prepopulated meier in note writing are used for assistance with data collection and billing and are inherently more limited than narrative and other text portions of this note. Please use narrative for additional clinical history and defer to narrative/free test for any case of contradictory information. If information appears in only free text or click bubble it should be considered present or absent as reported. Please contact note field underwriter for clarifications of clinical information or contradictory information. MDM is a brief summary, contradictory or erroneous seeming information should be clarified and full note should be reviewed. Vital Signs: Vital signs: Vital Signs Temperature 98.1 F 03/07/22 13:00 Pulse Rate 72 03/07/22 13:00 Respiratory Rate 18 03/07/22 13:00 Blood Pressure 145/72 03/07/22 13:00 Pulse Oximetry 94 03/07/22 13:00 Oxygen Delivery Me thod 03/07/22 11:42 Oxygen Flow Rate 6 03/06/22 08:02 MDM - General Adult Medical Decision Making 57-year-old male presenting from podiatry clinic for worsening diabetic foot wounds concerning for superimposed infection. Planned operative management. Admitted for further management on IV antibiotics. Medical Records I reviewed the patient's medical records. Lab Data I reviewed the patient's lab results. : 03/07/22 04:51 03/07/22 04:51 Radiology Impressions Duplex Scan Lower Extremity Artery 03/02/22 20:06 IMPRESSION: No stenosis or occlusion. Foot X-Ray 03/02/22 20:06 IMPRESSION: 1. Soft tissue swelling and ulcer on the lateral aspect of the foot. 2. No evidence for active osteomyelitis. Laboratory Results WBC 7.4 10^3/uL (4.0-10.0) 03/02/22 16:43 RBC 3.53 10^6/uL (4.1-5.3) L 03/02/22 16:43 Hgb 10.7 g/dL (11.7-16.6) L 03/02/22 16:43 Hct 33.1 % (42.0-52.0) L 03/02/22 16:43 MCV 93.8 fl (80-94) 03/02/22 16:43 MCH 30.3 pg (28.0-34.0) 03/02/22 16:43 MCHC 32.3 g/dL (30.0-36.0) 03/02/22 16:43 RDW 13.6 % (12.1-15.1) 03/02/22 16:43 Plt Count 280 10^3/cmm (130-400) 03/02/22 16:43 MPV 9.4 fL (7.4-10.4) 03/02/22 16:43 Neut % (Auto) 67.4 % 03/02/22 16:43 Lymph % (Auto) 16.7 % 03/02/22 16:43 Dyer % (Auto) 9.2 % 03/02/22 16:43 Eos % (Auto) 5.3 % 03/02/22 16:43 Baso % (Auto) 0.9 % 03/02/22 16:43 Neut # (Auto) 5.00 10^3/uL (1.8-7.7) 03/02/22 16:43 Lymph # (Auto) 1.2 10^3/uL (0.8-4.8) 03/02/22 16:43 Dyer # (Auto) 0.7 10^3/uL (0.2-0.9) 03/02/22 16:43 Eos # (Auto) 0.4 10^3/uL (0.0-0.8) 03/02/22 16:43 Baso # (Auto) 0.1 10^3/uL (0.0-0.1) 03/02/22 16:43 Nucleated RBC % (auto) 0 % 03/02/22 16:43 Nucleated RBCs # 0.0 /100WBC 03/02/22 16:43 ESR 68 mm/hr (0-10) H 03/02/22 16:43 Sodium 132 mmol/L (136-145) L 03/02/22 16:43 Potassium 3.8 mmol/L (3.5-5.1) 03/02/22 16:43 Chloride 93 mmol/L (98-107) L 03/02/22 16:43 Carbon Dioxide 27 mmol/L (22-29) 03/02/22 16:43 Anion Gap 15.8 (5-19) 03/02/22 16:43 BUN 29 mg/dL (6-20) H 03/02/22 16:43 Creatinine 6.0 mg/dL (0.7-1.2) H* 03/02/22 16:43 GFR Calculation 9.8 mL/min (90-130) L 03/02/22 16:43 Glucose 165 mg/dL (65-115) H 03/02/22 16:43 Estimat Average Glucose 120 03/02/22 16:43 Hemoglobin A1c 5.8 % (4.0-6.0) 03/02/22 16:43 Calculated Osmolality 284 mOsm/kg (285-295) L 03/02/22 16:43 Lactate 0.9 mmol/L (0.5-2.2) 03/02/22 16:43 Calcium 9.4 mg/dL (8.5-10.5) 03/02/22 16:43 Total Bilirubin 0.4 mg/dL (0.15-1.2) 03/02/22 16:43 AST 19 U/L (0-40) 03/02/22 16:43 ALT 13 U/L (0-41) 03/02/22 16:43 Alkaline Phosphatase 96 U/L (40-130) 03/02/22 16:43 C-Reactive Protein 44.5 mg/L (0.0-4.9) H 03/02/22 16:43 Total Protein 8.3 g/dL (6.6-8.7) 03/02/22 16:43 Albumin 3.6 g/dL (3.5-5.2) 03/02/22 16:43 Globulin 4.7 g/dL (1.3-4.6) H 03/02/22 16:43 Discharge Plan Discharge Patient Disposition: Admitted As Inpatient Admit Provider: José Luis Gonzalez Clinical Impression: Diabetic foot infection Condition: Stable Discharge Diet: Regular, Cardiac and Diabetic Discharge Activity: Resume usual activity and Increase activity as tolerated Coding Level of Care Code ED Plant Operations Coordinator for Chg Fwd Exam Comprehensive
[2022-03-02 16:49] VITALS: RESP 15
[2022-03-02] MEDS: morphine 4 mg/mL SDV 1 mL IVP (16:49)
[2022-03-02] MEDS: ondansetron 2 mg/ML SDV 2 mL 4 MG IVP (16:49)
[2022-03-02] MEDS: piperacillin-tazobactam 4.5 GM in sodium chloride 0.9% (plus) 50 ML IV (16:50)
[2022-03-02 16:56] LABS: Basophils # 0.1 10^3/uL (0.0-0.1); Basophils % 0.9 %; Eosinophils # 0.4 10^3/uL (0.0-0.8); Eosinophils % 5.3 %; Hematocrit 33.1 % (42.0-52.0); Hemoglobin 10.7 g/dL (11.7-16.6); Lymphocytes # 1.2 10^3/uL (0.8-4.8); Lymphocytes % 16.7 %; Mean Corpuscular HGB Conc 32.3 g/dL (30.0-36.0); Mean Corpuscular Hemoglobin 30.3 pg (28.0-34.0); Mean Corpuscular Volume 93.8 fl (80-94); Mean Platelet Volume 9.4 fL (7.4-10.4); Monocytes # 0.7 10^3/uL (0.2-0.9); Monocytes % 9.2 %; Neutrophils % 67.4 %; Nucleated Red Blood Cells % 0 %; Platelet Count 280 10^3/cmm (130-400); Red Blood Count 3.53 10^6/uL (4.1-5.3); Red Cell Distribution Width 13.6 % (12.1-15.1); White Blood Count 7.4 10^3/uL (4.0-10.0)
[2022-03-02 17:05] VITALS: BP 137/78; PULSE 68; RESP 13; TEMP 36.2; O2SAT 94
[2022-03-02 17:15] LABS: Alanine Aminotransferase 13 U/L (0-41); Albumin Level 3.6 g/dL (3.5-5.2); Alkaline Phosphatase 96 U/L (40-130); Anion Gap 15.8 (5-19); Aspartate Amino Transferase 19 U/L (0-40); Blood Urea Nitrogen 29 mg/dL (6-20); C Reactive Protein 44.5 mg/L (0.0-4.9); Calcium 9.4 mg/dL (8.5-10.5); Carbon Dioxide 27 mmol/L (22-29); Chloride 93 mmol/L (98-107); Globulin 4.7 g/dL (1.3-4.6); Glomerular Filtration Rate 9.8 mL/min (90-130); Glucose 165 mg/dL (65-115); Osmolality Calculated 284 mOsm/kg (285-295); Potassium 3.8 mmol/L (3.5-5.1); Sodium 132 mmol/L (136-145); Total Bilirubin 0.4 mg/dL (0.15-1.2); Total Protein 8.3 g/dL (6.6-8.7)
[2022-03-02 17:16] LABS: Lactate (Lactic Acid level) 0.9 mmol/L (0.5-2.2)
[2022-03-02 17:34] LABS: Erythrocyte Sedimentation Rate 68 mm/hr (0-10)
[2022-03-02 19:32] VITALS: PULSE 67; RESP 15; TEMP 36.4; O2SAT 97
--- NOTE | 2022-03-02 20:06 | USR_ITS ---
PROCEDURE INFORMATION: Exam: US Duplex Lower Extremity Arteries Exam date and time: 03/02/2022 8:16 PM Age: 56 years old Clinical indication: Other: Ulcers; Additional info: Pvd TECHNIQUE: Imaging protocol: Real-time ultrasound scan of the arteries of the bilateral lower extremities with 2-D amanda scale, color Doppler flow and spectral waveform analysis. Images documented and saved. COMPARISON: US Renal Kidney Structu* [id number] 04/08/2019 6:10 PM FINDINGS: Right common femoral artery: No occlusion or significant stenosis. Normal waveform. Right superficial femoral artery: No occlusion or significant stenosis. Normal waveform. Right popliteal artery: No occlusion or significant stenosis. Normal waveform. Right calf/foot arteries: No occlusion or significant stenosis in the visualized arteries. Normal waveforms. Dorsalis pedis artery is patent. Left common femoral artery: No occlusion or significant stenosis. Normal waveform. Left superficial femoral artery: No occlusion or significant stenosis. Normal waveform. Left popliteal artery: No occlusion or significant stenosis. Normal waveform. Left calf/foot arteries: No occlusion or significant stenosis in the visualized arteries. Normal waveforms. Dorsalis pedis artery is patent. US/[place] [id number] IMPRESSION: No stenosis or occlusion.
--- NOTE | 2022-03-02 20:06 | XRR_ITS ---
PROCEDURE INFORMATION: Exam: XR Left Foot Exam date and time: 03/02/2022 9:15 PM Age: 56 years old Clinical indication: Cellulitis; Foot; Left; Additional info: Cell[employer] TECHNIQUE: Imaging protocol: Radiologic exam of the Left foot. Views: 1 or 2 views. COMPARISON: 1. CR XR foot LT min 3V* [id number] 03/01/2022 2:21 PM 2. CR Foot 3 views, LEFT* [id number] 11/20/2016 1:46 PM FINDINGS: Bones/joints: There is transmetatarsal amputation of the left 4th toe not significantly changed. There is no evidence of fracture or dislocation. There is some erosion of the medial aspect of the distal end of the 1st proximal phalanx of uncertain significance. This could be due to prior infectious or inflammatory disease or even gout. There is no evidence of a new destructive bone lesion to suggest active osteomyelitis. MRI would be more sensitive for the detection of early osteomyelitis. Soft tissues: There is soft tissue swelling laterally in a small ulcer in the lateral soft tissues of the foot at the level of the distal 4th metatarsal not changed from 03/01/2022. Other findings: Small vessel calcifications are consistent with a history of diabetes. XR/XR foot LT 2V [id number] IMPRESSION: 1. Soft tissue swelling and ulcer on the lateral aspect of the foot. 2. No evidence for active osteomyelitis.
--- NOTE | 2022-03-02 20:08 | P.HP_ITS ---
Providers/Chief Complaint Admitting Physician: José Luis Gonzalez MD Primary Care Provider: Sandy Kelly MD Chief Complaint: sent for admission by Dr. Enciso History of Present Illness Kt Jett JR is a 56 year old male with a past medical history of end-stage renal disease on hemodialysis, type 2 diabetes mellitus on insulin, history of GI bleed, history of MSSA bacteremia, history of systolic CHF, history of pulmonary edema, who presents to [facility] for concerns for left foot diabetic ulcer, increased drainage, failure with outpatient antibiotic therapy. He tells given his outpatient, his left foot, diabetic ulcer has had increased drainage has had some low-grade fevers, fatigue, malaise, has been on antibiotics without improvement. He saw podiatry yesterday, who recommended for hospital admission yesterday however patient has not needed to the hospital until today Review of Systems Card: Denies: chest pain Resp: Denies: dyspnea GI: Denies: abdominal pain Medications/Allergies Home Medications Medication Instructions Recorded Confirmed Last Taken Type atorvastatin 20 mg tablet 20 mg PO QPM 07/13/19 03/01/22 08/29/20 History duloxetine 60 mg capsule,delayed 60 mg PO DAILY 07/13/19 03/01/22 08/29/20 History release sprinkle hydrocodone 10 mg-acetaminophen 1 - 2 tab PO Q6H PRN Pain 07/13/19 03/01/22 08/31/20 History 325 mg tablet nitroglycerin 0.4 mg sublingual 0.4 mg sublingual Q5M PRN chest 07/13/19 03/01/22 Unknown History tablet (Nitrostat) pain pantoprazole 40 mg tablet,delayed 40 mg PO DAILY 07/13/19 03/01/22 Unknown History release insulin degludec 100 unit/mL 30 unit SUBCUT DAILY 03/28/20 03/01/22 08/29/20 History subcutaneous solution (Tresiba U-100 Insulin) ergocalciferol (vitamin D2) 25,000 50,000 unit PO Q7D 09/03/20 03/01/22 Unknown History unit capsule metoprolol tartrate 50 mg tablet 25 mg PO BID 09/28/20 03/01/22 Unknown History diclofenac sodium 1 % topical gel 2 g topical QID 10/24/20 03/01/22 Unknown History isosorbide mononitrate 30 mg 30 mg PO DAILY #90 tabs 05/21/21 03/01/22 Unknown Rx tablet,extended release 24 hr amlodipine 5 mg tablet 5 mg PO .HS #90 tabs 06/13/21 03/01/22 Unknown Rx cyanocobalamin (vitamin B-12) 1,000 mcg IM .3XWeekly #1 mL 06/13/21 03/01/22 Unknown Rx 1,000 mcg/mL injection solution losartan 100 mg tablet 100 mg PO DAILY #90 tabs 06/13/21 03/01/22 Unknown Rx silver sulfadiazine 1 % topical 1 applic topical BID foot burn #20 12/27/21 03/01/22 Unknown Rx cream (Silvadene) grams doxycycline hyclate 100 mg capsule 100 mg PO BID 10 days #20 caps 12/28/21 03/01/22 Unknown Rx mupirocin 2 % topical ointment 1 applic topical BID #22 grams 02/21/22 03/01/22 Unknown Rx Cam Boot to the Left #1 ea 03/01/22 03/01/22 Unknown Rx Allergies Allergy/AdvReac Type Severity Reaction Status Date / Time No Known Allergies Allergy Verified 03/01/22 13:00 PFSH Acute PFSH: Medical History Anemia CAD (coronary artery disease) Cardiomyopathy Chronic back pain CKD (chronic kidney disease) Diabetes mellitus Diabetes mellitus, type II End stage renal disease on dialysis ESRD (end stage renal disease) Essential hypertension Fibromyalgia GERD (gastroesophageal reflux disease) Hemodialysis access site with arteriovenous graft Hx of staphylococcal infection Hypertension Hypertensive emergency Lumbar disc disease Osteoarthritis Surgical History H/O circumcision History of cataract surgery History of coronary artery stent placement S/P carpal tunnel release S/P tonsillectomy Status post insertion of hemodialysis catheter Status post peritoneal dialysis Family History Mother Aneurysm Grandmother Cancer Sister Cancer Social History Smoking and tobacco status: never smoked Alcohol intake: never Lives independently: Yes Household members: none Housing: House Marital status: service: No Current occupational status: disabled History of recent travel: No Vitals/I&O/Wt Last Vital Signs Temp 97.6 F 03/02/22 19:32 Pulse 67 03/02/22 19:32 Resp 15 03/02/22 19:32 BP 137/78 03/02/22 17:05 Pulse Ox 97 03/02/22 19:32 O2 Del Method 03/02/22 19:32 Weight last 48 hrs Weight 117.934 kg Physical Exam Const: COMMON NORMALS: no acute distress and patient oriented x3 HENMT: COMMON NORMALS: normocephalic HEAD & SCALP: normocephalic Eye: COMMON NORMALS: Equal, round and reactive pupils present and EOMs intact bilaterally Neck/C-Spine: COMMON NORMALS: no JVD Resp: COMMON NORMALS: normal respiratory effort, No retractions, No use of accessory muscles and clear to auscultation bilaterally AUSCULTATION: clear to auscultation bilaterally Cardio: COMMON NORMALS: no JVD, regular rate, regular rhythm, S1 normal heart sound present and S2 normal heart sound present RATE: regular rate RHYTHM: regular rhythm HEART SOUNDS: S1 normal heart sound present and S2 normal heart sound present GI: COMMON NORMALS: Normal to inspection, nondistended, normoactive bowel sounds present, Soft to palpation, non-tender, No hepatosplenomegaly present, no masses and no bruits PALPATION: Yes Soft to palpation and Yes No hepatosplenomegaly present Extremity: COMMON NORMALS: capillary refill normal, no clubbing, cyanosis or edema, no calf tenderness and no pedal edema NARRATIVE EXTREMITY EXAM: Left foot, diabetic ulcer, measuring 1 x 1 cm round, erythematous, fifth metatarsal head Neuro: COMMON NORMALS: patient oriented x3 Psych: COMMON NORMALS: mental status grossly normal Data : 03/02/22 16:43 03/02/22 16:43 Micro: Microbiology 03/02/22 16:42 Blood Culture - Preliminary Blood SPECIMEN COLLECTED A&P Assessment and plan (1) Diabetic foot infection: Status: Acute (2) Second degree burn of plantar aspect of foot: Status: Acute Qualifiers: Encounter type: subsequent encounter Laterality: unspecified laterality Qualified Code(s): T25.229D - Burn of second degree of unspecified foot, subsequent encounter (3) Essential hypertension: Status: Acute (4) Anemia: Status: Acute (5) Hypertension: Status: Acute Qualifiers: Hypertension type: essential hypertension Qualified Code(s): I10 - Essential (primary) hypertension (6) Diabetes mellitus: Status: Acute (7) End stage renal disease on dialysis: Status: Acute (8) Congestive heart failure: Status: Acute Qualifiers: Heart failure type: other Qualified Code(s): I50.9 - Heart failure, unspecified Plan Diabetic foot infection -X-ray left foot -Arterial ultrasound -Vancomycin, Zosyn -N.p.o. midnight -Dr. Enciso consulted, debridement tomorrow morning -SCDs for DVT prophylaxis, Lovenox relatively contraindicated given history of GI bleed -Full code Type 2 diabetes mellitus, low-dose sliding scale, Lantus 20 units at bedtime History of anemia, history of GI bleed, requiring transfusions End-stage renal disease, dialysis Friday, he went to dialysis yesterday, no shortness of breath CAD, no chest pain complaints Attestations Medical Necessity Statement*: Patient requires hospitalization due to diabetic ulcer left foot with failure of outpatient antibiotics, requiring IV antibiotics and debridement Coding Level of Care Code Acute Quality Assurance Representative for [facility] Fwd Diagnoses Diabetic foot infection E11.628; L08.9 Second degree burn of plantar aspect of foot T25.229D Encounter type: subsequent encounter Laterality: unspecified laterality Essential hypertension I10 Anemia D64.9 Hypertension I10 Hypertension type: essential hypertension Diabetes mellitus E11.9 End stage renal disease on dialysis N18.6; Z99.2 Congestive heart failure I50.9 Heart failure type: other
--- NOTE | 2022-03-02 21:19 | P.CONIM_ITS ---
Providers/Reason For Consult Consulting Physician/Specialty*: Podiatry Reason for Consult*: Diabetic foot infection left foot Attending Physician: José Luis Gonzalez MD Primary Care Provider: Sandy Kelly MD History of Present Illness History of Present Illness Kt Jett JR is a 56 year old male with history of DM2 and chronic bilateral foot wounds that presents to the ED after worsening infection. The patient has been seeing Dr. Enciso in clinic who told him this past week that his infection is worsening and that he needed to present to the emergency department for admis pastora and IV abx as he has failed outpatient abx. The patient is also ESRD and is dialyzed 3 times per week. Per the patient, he was also told to present to the ED for admission and evaluation by the dialysis team as they too noticed the declining condition of his foot wound. The patient states that due to social circumstances that he was unable to come in until today. He does state that over the course of the past few days he has felt more feelings of general malaise, including fever, chills and nausea. He has also noticed increased drainage and redness from his left foot wound. He is accompanied by his family friend as he has no family in the area. His sister lives in [place] and he has no other support. He lives at home alone. Home health is set up and they come in and help him with his dressing changes at least weekly. Review of Systems General: Reports: 10 or more systems reviewed and unremarkable except in HPI and below Musc: Reports: joint stiffness Skin/Breast: Reports: non-healing lesions and lesions Neuro: Reports: numbness in extremities Medications/Allergies Home Medications Medication Instructions Recorded Confirmed Last Taken Type atorvastatin 20 mg tablet 20 mg PO QPM 07/13/19 03/01/22 08/29/20 History duloxetine 60 mg capsule,delayed 60 mg PO DAILY 07/13/19 03/01/22 08/29/20 History release sprinkle hydrocodone 10 mg-acetaminophen 1 - 2 tab PO Q6H PRN Pain 07/13/19 03/01/22 08/31/20 History 325 mg tablet nitroglycerin 0.4 mg sublingual 0.4 mg sublingual Q5M PRN chest 07/13/19 03/01/22 Unknown History tablet (Nitrostat) pain pantoprazole 40 mg tablet,delayed 40 mg PO DAILY 07/13/19 03/01/22 Unknown History release insulin degludec 100 unit/mL 30 unit SUBCUT DAILY 03/28/20 03/01/22 08/29/20 History subcutaneous solution (Tresiba U-100 Insulin) ergocalciferol (vitamin D2) 25,000 50,000 unit PO Q7D 09/03/20 03/01/22 Unknown History unit capsule metoprolol tartrate 50 mg tablet 25 mg PO BID 09/28/20 03/01/22 Unknown History diclofenac sodium 1 % topical gel 2 g topical QID 10/24/20 03/01/22 Unknown History isosorbide mononitrate 30 mg 30 mg PO DAILY #90 tabs 05/21/21 03/01/22 Unknown Rx tablet,extended release 24 hr amlodipine 5 mg tablet 5 mg PO .HS #90 tabs 06/13/21 03/01/22 Unknown Rx cyanocobalamin (vitamin B-12) 1,000 mcg IM .3XWeekly #1 mL 06/13/21 03/01/22 Unknown Rx 1,000 mcg/mL injection solution losartan 100 mg tablet 100 mg PO DAILY #90 tabs 06/13/21 03/01/22 Unknown Rx silver sulfadiazine 1 % topical 1 applic topical BID foot burn #20 12/27/21 03/01/22 Unknown Rx cream (Silvadene) grams doxycycline hyclate 100 mg capsule 100 mg PO BID 10 days #20 caps 12/28/21 03/01/22 Unknown Rx mupirocin 2 % topical ointment 1 applic topical BID #22 grams 02/21/22 03/01/22 Unknown Rx Cam Boot to the Left #1 ea 03/01/22 03/01/22 Unknown Rx Allergies Allergy/AdvReac Type Severity Reaction Status Date / Time No Known Allergies Allergy Verified 03/01/22 13:00 PFSH Acute PFSH: Medical History (Updated 03/02/22 @ 21:45 by Gage Connelyl DPM) Anemia CAD (coronary artery disease) Cardiomyopathy Chronic back pain CKD (chronic kidney disease) Diabetes mellitus Diabetes mellitus, type II End stage renal disease on dialysis ESRD (end stage renal disease) Essential hypertension Fibromyalgia GERD (gastroesophageal reflux disease) Hemodialysis access site with arteriovenous graft Hx of staphylococcal infection Hypertension Hypertensive emergency Lumbar disc disease Osteoarthritis Surgical History H/O circumcision History of cataract surgery History of coronary artery stent placement S/P carpal tunnel release S/P tonsillectomy Status post insertion of hemodialysis catheter Status post peritoneal dialysis Family History Mother Aneurysm Grandmother Cancer Sister Cancer Social History Smoking and tobacco status: never smoked Alcohol intake: never Lives independently: Yes Household members: none Housing: House Marital status: service: No Current occupational status: disabled History of recent travel: No Vitals/I&O/Wt Last Vital Signs Temp 97.6 F 03/02/22 19:32 Pulse 67 03/02/22 19:32 Resp 15 03/02/22 19:32 BP 137/78 03/02/22 17:05 Pulse Ox 97 03/02/22 19:32 O2 Del Method 03/02/22 19:32 Weight last 48 hrs Weight 260 lb Physical Exam Narrative: GENERAL: A&O x 3, NAD VASCULAR: DP/PT palpable 1/4 with CFT intact to distal digits and less than 3 seconds DERM: LEFT FOOT: Full thickness ulceration plantar left 5th metataral that communicates with ulcer to dorsal lateral aspect of 5th MTPJ. Positive probe to 5th MTPJ capsule. Active purulence from dorsal lateral foot wound. Surrounding erythema. No proximal lymphangetic streaking noted. Plantar ulcer measures 2.5 x 2.5 x 0.5cm with 75% fibrotic and 25% hypergranular wound base. The dorsal lateral wound measures 1.0 x 1.0 x 0.7cm with 100% fibrotic wound base. RIGHT FOOT: Full thickness ulceration to plantar aspect of right 5th MTPJ measuring 4.5 x 2.5 x 0.2cm with 100% granular base. No probe to bone, tracking or undermining, stable. MSK: Pain with palpation of lateral aspect of 5th MTPJ of left foot. Left partial 4th ray resection NEURO: Diminished sensation to the level of the midfoot bilaterally 2/2 DPN IMAGIN view xray of left foot obtained and read by me that show increased soft tissue density surrounding 5th MTPJ. Soft tissue defect plantarly that correlates clinically with the wound. No subq emphysema noted. Early erosive changes to lateral aspect of 5th metatarsal head cortex that could indicate osteomyelitis. No pathological fractures noted. Partial 4th ray resection. Calcified vessels visualized. 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 Patient has failed outpatient abx and condition is declining. -Lengthy discussion was had with patient and his family friend. All questions were answered and patient verbalized understanding -Continue IV vanco/zosyn -Clinic cultures taken 03/01/22 in clinic show staph species, await further ID and sensitivity -Right foot dressing changes with betadine wet to dry -Heel weight bearing only to left foot using CAM boot Consult Attestations Medical Necessity Statement: See above Coding Level of Care Code Acute Supervisory Training Specialist for Chg Fwd Diagnoses Diabetic ulcer of foot associated with type 2 diabetes mellitus, with necrosis of bone E11.621; L97.504 Diabetic foot infection E11.628; L08.9 Pain in left foot M79.672
--- NOTE | 2022-03-02 22:10 | PC.NURSE ---
Report called to Trish at 2119. Bilat feet dressed. Patient to 260.2
[2022-03-03] VITALS (16 sets, daily range): BP systolic 94–195; BP diastolic 44–82; PULSE 0–69; RESP 12–18; TEMP 36.3–37.1; O2SAT 93–97
--- NOTE | 2022-03-03 00:16 | PC.PHAR ---
Vancomycin is dosed at 750mg IVPB every 24 hours to produce a predicted trough level of 18.19 (population based pharmacokinetic analysis). A trough level has been ordered from the lab to be obtained before the third dose to confirm and adjust if needed. The Zosyn is dosed at 3.375gm IVPB every 12 hours on the basis of the creatinine clearance of 18.226.
--- NOTE | 2022-03-03 00:30 | PC.NURSE ---
Patient reporting pain 03/23. This RN explained to patient that Hydrocodone 10/325 available for patient. Patient states I take that at home, that is going to do nothing for me. I need a morphine shot . Called Dr. Gonzalez regarding patient's complaints of pain and explained how patient reports he takes his hydrocodone at home: 1-2 tabs every 4-[address] Gonzalez responded with approval to reorder patient's hydrocodone as he takes it at home, but stated he will wait to order other pain medications at this time.
[2022-03-03] MEDS: HYDROcodone-acetaminophen 10-325 mg Tablet PO ×3 (00:48→20:17)
[2022-03-03] MEDS: insulin glargine 100 units/1 mL 20 UNIT SUBCUT ×2 (00:59→21:44)
[2022-03-03 01:02] LABS: Glucose Point of Care 187 mg/dL (70-110)
[2022-03-03] MEDS: piperacillin-tazobactam 3.375 GM in sodium chloride 0.9% (plus) 50 ML IV ×2 (05:05→17:38)
[2022-03-03 05:13] LABS: Basophils # 0.1 10^3/uL (0.0-0.1); Basophils % 0.9 %; Eosinophils # 0.5 10^3/uL (0.0-0.8); Eosinophils % 9.3 %; Hematocrit 29.8 % (42.0-52.0); Hemoglobin 9.8 g/dL (11.7-16.6); Lymphocytes % 17.4 %; Mean Corpuscular HGB Conc 32.9 g/dL (30.0-36.0); Mean Corpuscular Hemoglobin 30.2 pg (28.0-34.0); Mean Corpuscular Volume 91.7 fl (80-94); Mean Platelet Volume 9.6 fL (7.4-10.4); Monocytes # 0.6 10^3/uL (0.2-0.9); Monocytes % 10.7 %; Neutrophils # 3.56 10^3/uL (1.8-7.7); Neutrophils % 61.4 %; Nucleated Red Blood Cells % 0 %; Platelet Count 274 10^3/cmm (130-400); Red Blood Count 3.25 10^6/uL (4.1-5.3); Red Cell Distribution Width 13.8 % (12.1-15.1); White Blood Count 5.8 10^3/uL (4.0-10.0)
[2022-03-03 05:35] LABS: Slide Review Slide Review Perform
[2022-03-03 05:41] LABS: Estmated Average Glucose 120; Hemoglobin A1C 5.8 % (4.0-6.0)
[2022-03-03 06:44] LABS: Glucose Point of Care 185 mg/dL (70-110)
--- NOTE | 2022-03-03 06:50 | PC.NURSE ---
Surgery staff at bedside to take patient to preop at 0650, via stretcher
[2022-03-03 07:13] LABS: Glucose Point of Care 200 mg/dL (70-110)
--- NOTE | 2022-03-03 07:31 | W.PM.OPSUD ---
Surgery/Procedure H&P Update DATE OF PROCEDURE: March 03, 2022 DATE H&P PERFORMED: 03/02/22 CHANGES TO PREVIOUS DOCUMENTATION: No changes to H&P from 03/02/22 PREOP DIAGNOSIS: Osteomyelitis left foot PRIMARY INDICATION FOR PROCEDURE: Diabetic foot infection left foot with necrosis to bone PLANNED PROCEDURE: Operation Date: 03/03/22 08:00 Proposed Procedures p Ray Resection with removal of partial non viable tissue(Left) - Gage Connelly DPM
--- NOTE | 2022-03-03 08:20 | ANES.PREANE2 ---
Pre-Anesthetic Assessment Height/Weight: Height 1.83 m Weight 117.934 kg Temp Pulse Resp BP Pulse Ox O2 Del Method 98.7 F 67 18 173/78 94 03/03/22 07:00 03/03/22 07:00 03/03/22 07:00 03/03/22 07:00 03/03/22 07:00 03/03/22 07:00 Preop Diagnosis: Osteomyelitis left foot Operation Date: 03/03/22 08:00 Proposed Procedures p Ray Resection with removal of partial non viable tissue(Left) - Gage Connelly DPM Familial anesthetic complications: none Was Beta Flores taken within 24 hours: Yes Was Clonidine taken within 24 hours: N/A Last intake: Intake Last Liquid Date 03/03/22 Last Liquid Time 00:30 Last Solid Date 03/02/22 Last Solid Time 21:00 Social No alcohol and No tobacco Exam alert, oriented x 3, clear to auscultation bilaterally and regular rate & rhythm Airway Submandibular: within normal limits Cervical ROM: within normal limits Mallampati: Class I Dentition: chipped Comments: Comments: Very poor dentition CV/HEM Anemia, Coronary Artery Disease (stent), Congestive Heart Failure, Hypertension and Myocardial Infarction Chronic Renal Failure GI Gastroesophageal Reflux Disease Metabolic Diabetes Mellitus, Hyperlipidemia and Morbid Obesity Neuropsych Neuropathy Anesthetic Plan ASA status: 3 Anesthesia: MAC Medications/Allergies Home Medications Medication Instructions Recorded Confirmed Last Taken Type atorvastatin 20 mg tablet 20 mg PO QPM 07/13/19 03/03/22 03/01/22 21:00 History duloxetine 60 mg capsule,delayed 60 mg PO DAILY 07/13/19 03/03/22 03/01/22 21:00 History release sprinkle hydrocodone 10 mg-acetaminophen 1 - 2 tab PO Q6H PRN Pain 07/13/19 03/03/22 03/02/22 11:00 History 325 mg tablet nitroglycerin 0.4 mg sublingual 0.4 mg sublingual Q5M PRN chest 07/13/19 03/03/22 Unknown History tablet (Nitrostat) pain pantoprazole 40 mg tablet,delayed 40 mg PO DAILY 07/13/19 03/03/22 03/01/22 21:00 History release insulin degludec 100 unit/mL 30 unit SUBCUT DAILY 03/28/20 03/03/22 03/01/22 21:00 History subcutaneous solution (Tresiba U-100 Insulin) metoprolol tartrate 50 mg tablet 50 mg PO BID 09/28/20 03/03/22 03/01/22 21:00 History isosorbide mononitrate 30 mg 30 mg PO DAILY #90 tabs 05/21/21 03/03/22 03/01/22 09:00 Rx tablet,extended release 24 hr losartan 100 mg tablet 100 mg PO DAILY #90 tabs 06/13/21 03/03/22 03/01/22 21:00 Rx mupirocin 2 % topical ointment 1 applic topical BID #22 grams 02/21/22 03/03/22 03/01/22 21:00 Rx Cam Boot to the Left #1 ea 03/01/22 03/03/22 Unknown Rx bisacodyl 5 mg tablet,delayed 5 mg PO DAILY 03/03/22 03/03/22 03/01/22 21:00 History release clopidogrel 75 mg tablet 75 mg PO DAILY 03/03/22 03/03/22 03/01/22 21:00 History cyclobenzaprine 10 mg tablet 10 mg PO TID 03/03/22 03/03/22 03/01/22 21:00 History furosemide 40 mg tablet 40 mg PO DAILY 03/03/22 03/03/22 03/01/22 21:00 History hydralazine 50 mg tablet 50 mg PO QID 03/03/22 03/03/22 03/01/22 21:00 History lactulose 10 gram/15 mL (15 mL) 10 g PO DAILY 03/03/22 03/03/22 03/01/22 21:00 History oral solution lanthanum 1,000 mg chewable tablet 1,000 mg PO TID 03/03/22 03/03/22 03/01/22 21:00 History (Fosrenol) minoxidil 2.5 mg tablet 2.5 mg PO BID 03/03/22 03/03/22 03/01/22 21:00 History nifedipine 60 mg tablet,extended 60 mg PO DAILY 03/03/22 03/03/22 03/01/22 21:00 History release vitamin B complex-vitamin C-folic 1 tab PO DAILY 03/03/22 03/03/22 03/01/22 21:00 History acid 0.8 mg tablet Allergies Allergy/AdvReac Type Severity Reaction Status Date / Time No Known Allergies Allergy Verified 03/01/22 13:00 Current Medications Generic Name Dose Route Start Last Admin Trade Name Juan Luis PRN Reason Stop Dose Admin Hydrocodone Bitart/Acetaminophen 1 - 2 tab 03/03/22 00:30 03/03/22 00:48 Hydrocodone-Acetaminophen 10-325 Mg Tablet PO 2 tab Q4H PRN Administration MODERATE TO SEVERE PAIN Piperacillin Sod/Tazobactam 50 mls @ 12.5 mls/hr 03/03/22 05:00 03/03/22 07:58 Sod 3.375 gm/ Sodium Chloride IV Infused Q12H NATHANAEL Infusion Protocol As Directed Insulin Glargine 20 unit 03/02/22 23:27 03/03/22 00:59 Insulin Glargine 100 Units/1 Ml SUBCUT 20 unit Q24H NATHANAEL Administration PFSH Anesthesia Medical History (Updated 03/02/22 @ 21:45 by Gage Connelly DPM) Anemia CAD (coronary artery disease) Cardiomyopathy Chronic back pain CKD (chronic kidney disease) Diabetes mellitus Diabetes mellitus, type II End stage renal disease on dialysis ESRD (end stage renal disease) Essential hypertension Fibromyalgia GERD (gastroesophageal reflux disease) Hemodialysis access site with arteriovenous graft Hx of staphylococcal infection Hypertension Hypertensive emergency Lumbar disc disease Osteoarthritis Surgical History H/O circumcision History of cataract surgery History of coronary artery stent placement S/P carpal tunnel release S/P tonsillectomy Status post insertion of hemodialysis catheter Status post peritoneal dialysis Family History Mother Aneurysm Grandmother Cancer Sister Cancer Social History Smoking and tobacco status: never smoked Alcohol intake: never Lives independently: Yes Household members: none Housing: House Marital status: service: No Current occupational status: disabled History of recent travel: No Data Anesthesia : 03/03/22 04:51 03/02/22 16:43 Short CBC 03/02/22 03/03/22 Range/Units 16:43 04:51 WBC 7.4 5.8 (4.0-10.0) 10^3/uL Hgb 10.7 L 9.8 L (11.7-16.6) g/dL Hct 33.1 L 29.8 L (42.0-52.0) % MCV 93.8 91.7 (80-94) fl Plt Count 280 274 (130-400) 10^3/cmm Neut % (Auto) 67.4 61.4 % Neut # (Auto) 5.00 3.56 (1.8-7.7) 10^3/uL BMP 03/02/22 03/03/22 16:43 04:51 Sodium 132 L Cancelled Potassium 3.8 Cancelled Chloride 93 L Cancelled Carbon Dioxide 27 Cancelled BUN 29 H Cancelled Creatinine 6.0 H* Cancelled Glucose 165 H Cancelled Calcium 9.4 Cancelled Cardiac Enzymes 03/03/22 Range/Units 04:51 NT-Pro-B Natriuret Pep Cancelled Liver Function 03/02/22 03/03/22 Range/Units 16:43 04:51 Total Bilirubin 0.4 Cancelled (0.15-1.2) mg/dL AST 19 Cancelled (0-40) U/L ALT 13 Cancelled (0-41) U/L Alkaline Phosphatase 96 Cancelled (40-130) U/L Albumin 3.6 Cancelled (3.5-5.2) g/dL Coags 03/02/22 03/02/22 16:43 16:43 ESR 68 H C-Reactive Protein 44.5 H Microbiology 03/02/22 16:42 Blood Culture - Preliminary Blood SPECIMEN COLLECTED Cardiac Studies: Echocardiogram Ultrasound 09/04/20
--- NOTE | 2022-03-03 09:07 | ANE.PACU2 ---
Inpatient post-anesthesia follow up: Airway intact: Yes Vital signs: Temperature 97.4 F Pulse Rate 61 Respiratory Rate 16 Blood Pressure 103/59 Pulse Oximetry 95 Oxygen Delivery Me thod Room Air Oxygen Flow Rate Fraction of Inspir ed Oxygen Hydration adequate: Yes Nausea and vomiting: No Pain level: 1 Mental status: Baseline
--- NOTE | 2022-03-03 09:33 | PM.OP ---
Operative Report Date of procedure: March 03, 2022 Pre-op diagnosis: Preop Diagnosis Osteomyelitis left foot fifth metatarsal Post-op diagnosis: Osteomyelitis left foot fifth metatarsal Post-op findings: Discoloration of left foot fifth metatarsal head surrounded by necrotic soft tissue Procedure done: 1. Incision and drainage left foot with partial fifth ray resection CPT 49759 Implants: None Specimens removed/disposition: -Left foot fifth metatarsal head sent to pathology -Deep tissue cultures left foot sent to micro for ID and sensitivity Pathology: See above Surgeon: Dr. Gage Connelly D.P.MEagle Estimated blood loss: Less than 10 cc 17 minutes Complications: None Findings: Discoloration of distal fifth metatarsal head surrounded by soft tissue necrosis Brief History: Patient has had chronic ulceration to plantar aspect of left fifth metatarsal phalangeal joint. Over the course of the past week his left foot wound has become increasingly more infected leading him to general feelings of malaise with fever and chills. Patient was advised by multiple providers to come to the emergency department for admission, work-up and IV antibiotics. The patient family presented to the emergency department 03/02/2022. Procedure: Patient is a 56-year-old male that has a history of DM2, diabetic peripheral neuropathy, chronic ulceration to plantar aspect of left foot at level of fifth metatarsophalangeal joint. As stated above, the left foot wound has become increasing more infected to the point that surgical intervention is required. A lengthy discussion regarding the procedure, including risks and complications has been had with the patient and is noted in the recent clinic note. Written and verbal consent have been obtained. All patient questions have been answered to the patient?s satisfaction. No written or verbal guarantees have been given or implied. The patient has been NPO since midnight. The history has been reviewed and the history and physical is current. The signed consent was confirmed and placed in the patient chart. Patient imaging has been reviewed and is consistent with the diagnosis. Under mild sedation, the patient was brought into the operating room and left on the gurney in the supine position. IV antibiotics were not given by the anesthesia department as the patient is on [id number] antibiotics on the floor. IV sedation was then performed by the anesthesiateam. A pneumatic tourniquet was then placed about the left ankle. The operative extremity was then prepped and draped in the usual fashion. The extremity was then elevated before the tourniquet was inflated to 250 mmHg. After inflation, the following procedure was then performed. Attention was directed to the plantar aspect of the left foot where there was a full-thickness ulceration plantar to the fifth metatarsal head measuring 2.5 x 2.5 x 0.5 cm with fibrotic base that communicated with dorsal lateral wound measuring 1.0 x 1.0 x 0.7 cm with soupy fibrotic base and active purulence. Positive probe to fifth metatarsal head through dorsal lateral wound consistent with clinical osteomyelitis. A #15 blade was then used to make a tennis racquet incision encompassing the 2 wounds with the arm extending dorsally on the fifth metatarsal shaft. Dissection was carried down through subcutaneous and superficial fascia to the level of the fifth metatarsal bone. The tissue was noted to be necrotic around the fifth metatarsal head. There was noted to be approximately 3 cc of purulence around the fifth metatarsal head and the soft tissues. Dissection was carried out to expose the fifth metatarsal head. The fifth metatarsal head was noted to be slightly darkened and discoloration compared to proximal bone. With adequate exposure of the distal fragment sagittal bone saw was used to perform an osseous cut through the fifth metatarsal shaft. The distal portion of the fifth metatarsal was excised and passed from the operative field to be sent as specimen. The remaining soft tissues were examined and any devitalized tissue was removed using a rongeur. Deep tissue cultures were then taken at this time both aerobic and anaerobic to be sent to micro for ID and sensitivity. Site was then irrigated with copious amounts of saline via pulse lavage. After irrigation, the site was inspected for any further necrotic tissue or tracking or undermining that would otherwise indicate deep space infection of which there was none. After irrigation the tourniquet was let down and good hyperemic response was noted to all remaining digits of the left foot. Site was packed with quarter inch iodoform packing gauze before being dressed with Adaptic Betadine soaked 4 x 4 gauze Kerlix and Stefano bandage. The patient tolerated the procedure and anesthesia well and without complication. The patient was transported from the operating room to the recovery room with vital signs stable and vascular status intact to all digits of the left foot. The patient was instructed to remain nonweightbearing to the operative extremity, to keep surgical dressing clean, dry and intact. The patient will be transferred back to the floor once anesthesia criteria is met. I will continue to round on and follow the patient in the inpatient setting and provide recommendations to stabilize the patient for discharge. Plan will be to return to the operating room in the next 48 to 72 hours for delayed primary closure
[2022-03-03 11:23] LABS: Glucose Point of Care 170 mg/dL (70-110)
--- NOTE | 2022-03-03 13:16 | PC.NURSE ---
Patient has Lantham 1000mg at bedside and states he takes 3 prior to each meal. Patient would like to keep them at bedside and does not want them sent to pharmacy for verification.
--- NOTE | 2022-03-03 17:23 | P.PN_ITS ---
Subjective Subjective: Patient seen postop. Asking about IV antibiotics and IV pain medication. Vitals/I&O/Wt Last Vital Signs Temp 97.4 F L 03/03/22 09:15 Pulse 60 03/03/22 09:15 Resp 16 03/03/22 09:15 BP 114/54 03/03/22 09:15 Pulse Ox 93 03/03/22 09:15 O2 Del Method 03/03/22 09:15 03/03/22 03/03/22 03/03/22 06:59 14:59 22:59 Intake Total 550 / 550 750 / 750 Output Total 0 / 0 5 / 5 Balance 550 / 550 745 / 745 Weight last 48 hrs Weight 117.934 kg Physical Exam Narrative: No acute distress. Friends visiting. Regular normal S1-S2 no murmurs clicks gallops or rubs lungs clear to auscultat ion anteriorly abdomen soft nontender nondistended positive bowel sound Extremities no clubbing cyanosis or edema. Both feet are wrapped postsurgically. 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 Debridement of right foot as well. Podiatry placed on oral pain medications. But patient states he has prior history and would like morphine ordered. Questions answered regarding IV antibiotics which will be given in the next few hours. -Continue IV vanco/zosyn -Clinic cultures taken 03/01/22 in clinic show staph species, await further ID and sensitivity cultures also sent by podiatry. 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
[2022-03-03 17:29] LABS: Glucose Point of Care 154 mg/dL (70-110)
[2022-03-03] MEDS: metoprolol tartrate 50 mg Tablet 25 MG PO (20:15)
[2022-03-03] MEDS: atorvastatin 40 mg Tablet 20 MG PO (20:16)
--- NOTE | 2022-03-03 21:14 | PC.NURSE ---
Patient was very anxious about not having morphine PRN, despite having no pain. Patient has described discomfort as burning/tingling feeling since surgery. Patient's family refused to leave patient until he knew he had the morphine ordered incase he needed it. Dr Pelaez gave order for IV Morphine 2 mg Q4H PRN for severe pain. This nurse spent approximately 30 minutes discussing with patient using Hydrocodone for pain mainly and saving the morphine for when pain was very severe as hydrocodone would better manage pain for a longer period of time. Patient and family were all in understanding and agreement that hydrocodone and morphine would not be able to be administered in a close time proximity and that morphine needed to be used for severe pain only.
[2022-03-03 21:26] LABS: Glucose Point of Care 206 mg/dL (70-110)
[2022-03-04] VITALS (14 sets, daily range): BP systolic 167–196; BP diastolic 71–98; PULSE 60–69; RESP 16–18; TEMP 36.6–36.9; O2SAT 93–98
[2022-03-04] MEDS: HYDROcodone-acetaminophen 10-325 mg Tablet PO ×2 (00:37→05:04)
[2022-03-04] MEDS: piperacillin-tazobactam 3.375 GM in sodium chloride 0.9% (plus) 50 ML IV ×2 (05:06→18:07)
[2022-03-04 05:49] LABS: Basophils # 0.1 10^3/uL (0.0-0.1); Basophils % 1.1 %; Eosinophils # 0.7 10^3/uL (0.0-0.8); Eosinophils % 8.4 %; Hematocrit 32.7 % (42.0-52.0); Hemoglobin 10.2 g/dL (11.7-16.6); Lymphocytes # 1.2 10^3/uL (0.8-4.8); Lymphocytes % 15.4 %; Mean Corpuscular HGB Conc 31.2 g/dL (30.0-36.0); Mean Corpuscular Hemoglobin 29.4 pg (28.0-34.0); Mean Corpuscular Volume 94.2 fl (80-94); Mean Platelet Volume 9.1 fL (7.4-10.4); Monocytes # 0.7 10^3/uL (0.2-0.9); Monocytes % 8.8 %; Neutrophils # 5.31 10^3/uL (1.8-7.7); Neutrophils % 65.8 %; Nucleated Red Blood Cells % 0 %; Platelet Count 281 10^3/cmm (130-400); Red Blood Count 3.47 10^6/uL (4.1-5.3); Red Cell Distribution Width 13.8 % (12.1-15.1); White Blood Count 8.1 10^3/uL (4.0-10.0)
[2022-03-04 06:13] LABS: Alanine Aminotransferase 9 U/L (0-41); Albumin Level 2.8 g/dL (3.5-5.2); Alkaline Phosphatase 89 U/L (40-130); Anion Gap 16.2 (5-19); Aspartate Amino Transferase 16 U/L (0-40); Blood Urea Nitrogen 41 mg/dL (6-20); Calcium 8.6 mg/dL (8.5-10.5); Carbon Dioxide 26 mmol/L (22-29); Chloride 97 mmol/L (98-107); Globulin 4.4 g/dL (1.3-4.6); Glomerular Filtration Rate 6.6 mL/min (90-130); Glucose 121 mg/dL (65-115); Osmolality Calculated 291 mOsm/kg (285-295); Phosphorus 3.7 mg/dL (2.5-4.5); Potassium 4.2 mmol/L (3.5-5.1); Sodium 135 mmol/L (136-145); Total Bilirubin 0.3 mg/dL (0.15-1.2); Total Protein 7.2 g/dL (6.6-8.7)
[2022-03-04 06:46] LABS: Glucose Point of Care 128 mg/dL (70-110)
--- NOTE | 2022-03-04 08:37 | PM.PN ---
Subjective Subjective: Patient seen at bedside this morning. States he is doing well. Pain is managed by pain medication. He denies any constitutional symptoms. Patient is status post left foot partial fifth ray resection date of surgery 03/03/2022. Vitals/I&O/Wt Last Vital Signs Temp 98.1 F 03/04/22 04:00 Pulse 63 03/04/22 06:00 Resp 18 03/04/22 04:00 BP 167/71 03/04/22 04:00 Pulse Ox 95 03/04/22 04:00 O2 Del Method 03/03/22 16:00 03/03/22 03/04/22 03/04/22 22:59 06:59 14:59 Intake Total 290 / 1040 240 / 1280 Output Total 100 / 105 Balance 290 / 1035 140 / 1175 Weight last 48 hrs Weight 260 lb Physical Exam Narrative: GENERAL: A&O x 3, NAD VASCULAR: DP/PT palpable 1/4 with CFT intact to distal digits and less than 3 seconds DERM: LEFT FOOT: Full thickness ulceration plantar left 5th metataral that communicates with ulcer to dorsal lateral aspect of 5th MTPJ. Positive probe to 5th MTPJ capsule. Active purulence from dorsal lateral foot wound. Surrounding erythema. No proximal lymphangetic streaking noted. Left foot incision is open and packed with iodoform packing gauze. No active drainage or purulence. RIGHT FOOT: Full thickness ulceration to plantar aspect of right 5th MTPJ measuring 4.5 x 2.5 x 0.2cm with 100% granular base. No probe to bone, tracking or undermining, stable. MSK:Left partial 4th ray resection NEURO: Diminished sensation to the level of the midfoot bilaterally 2/2 DPN Data : 03/04/22 05:24 03/04/22 05:24 Micro: Microbiology 03/02/22 16:42 Blood Culture - Preliminary Blood NEGATIVE TO DATE 03/03/22 08:33 Gram Stain - Final Toe - #1 03/02/22 21:13 Blood Culture - Preliminary Blood SPECIMEN COLLECTED A&P Assessment and plan (1) Diabetic ulcer of foot associated with type 2 diabetes mellitus, with necrosis of bone: Status: Acute (2) Diabetic foot infection: Status: Acute (3) Pain in left foot: Status: Acute Plan -Okay for diet per podiatry at this time -Plan for delayed primary closure this week. -Continue IV vanco/zosyn -Clinic cultures taken 03/01/22 in clinic show staph species, await further ID and sensitivity -Right foot dressing changes with betadine wet to dry -Heel weight bearing only to left foot using CAM boot Attestations Medical Necessity Statement*: See above Coding Level of Care Code Acute Assembly Machine Tender for g Fwd Diagnoses Diabetic ulcer of foot associated with type 2 diabetes mellitus, with necrosis of bone E11.621; L97.504 Diabetic foot infection E11.628; L08.9 Pain in left foot M79.672
[2022-03-04] MEDS: isosorbide mononitrate ER 30 mg Tablet PO (09:28)
[2022-03-04] MEDS: pantoprazole DR 40 mg Tablet PO (09:28)
[2022-03-04] MEDS: duloxetine 60 mg Capsule PO (09:28)
[2022-03-04] MEDS: metoprolol tartrate 50 mg Tablet 25 MG PO ×2 (09:29→18:06)
[2022-03-04] MEDS: losartan 50 mg Tablet 100 MG PO (09:29)
--- NOTE | 2022-03-04 10:40 | PC.CHAP ---
Pastoral Care Encounter/Spiritual Assessment Type of Contact [x] Declined trading specialist visit [] Patient/Family/Request visit [] Outpatient visit [] Follow-up visit [] Physician referral [] Code/Alert [] Routine visit [] Staff referral [] Actively dying [] Patient sleeping [] Family support [] [] Out of room [] Palliative care [] [] Receiving care in room [] Pre-surgical visit [] Trauma [] Long length of stay [] ICU visit [] Other: Relational/Emotional Strength [] Patient feels connected with others/family/visitors/staff [] Distress [] Loneliness/isolation [] Abandonment Spirituality of Patient [] Person of Jana [] Attends Hindu of their Jana [] Believes in Prayer [] Reads Bible or Congregational materials [] There are Spiritual issues to be addressed Campus Chaplain Interventions [] Prayer [] Active listening [] Non-anxious presence [] Spiritual/emotional support [] Crisis/trauma care [] Spiritual counseling [] Bereavement support [] Provided bereavement packet [] Provided Bible/devotional materials [] Provided toy/stuffed animal, coloring book to patient or family member [] Provided Communion [] Anointing/[place] [] Salvation [] Completed spiritual assessment [] Other: Impact on Illness or Injury [] Angry [] Fearful [] Anxious [] Often cries [] Exhaustion [] Unable to work [] Unable to attend scientology [] Unable to walk/stand [] Unable to read [] Unable to drive [] Unable to eat/drink [] Unable to sleep [] Unable to be with family [] Patient intubated [] Other: Summary Time spent with patient
--- NOTE | 2022-03-04 10:47 | PC.CHAP ---
Pastoral Care Encounter/Spiritual Assessment Type of Contact [x] Declined landscape technician visit [] Patient/Family/Request visit [] Outpatient visit [] Follow-up visit [] Physician referral [] Code/Alert [x] Routine visit [] Staff referral [] Actively dying [] Patient sleeping [] Family support [] [] Out of room [] Palliative care [] [] Receiving care in room [] Pre-surgical visit [] Trauma [] Long length of stay [] ICU visit [x] Other: JW Relational/Emotional Strength [] Patient feels connected with others/family/visitors/staff [] Distress [] Loneliness/isolation [] Abandonment Spirituality of Patient [] Person of Jana [] Attends Sikhism of their Jana [] Believes in Prayer [] Reads Bible or Denominational materials [] There are Spiritual issues to be addressed Polisher [employer] Interventions [x] Prayer [] Active listening [] Non-anxious presence [] Spiritual/emotional support [] Crisis/trauma care [] Spiritual counseling [] Bereavement support [] Provided bereavement packet [] Provided Bible/devotional materials [] Provided toy/stuffed animal, coloring book to patient or family member [] Provided Communion [] Anointing/[place] [] Salvation [x] Completed spiritual assessment [] Other: Impact on Illness or Injury [] Angry [] Fearful [] Anxious [] Often cries [] Exhaustion [] Unable to work [] Unable to attend tenriism [] Unable to walk/stand [] Unable to read [] Unable to drive [] Unable to eat/drink [] Unable to sleep [] Unable to be with family [] Patient intubated [] Other: Summary Time spent with patient
[2022-03-04] MEDS: HYDROcodone-acetaminophen 10-325 mg Tablet 1 TAB PO ×2 (11:00→20:43)
[2022-03-04 11:13] LABS: Glucose Point of Care 166 mg/dL (70-110)
[2022-03-04 11:15] LABS: Procalcitonin 0.31 ng/mL (0-0.5); Thyroid Stimulating Hormone 3.98 uIU/mL (0.27-4.20)
[2022-03-04 11:26] LABS: Iron 35 ug/dL (59-158); Percent Saturation 23.6 % (20-50); Total Iron Binding Capacity 148 mcg/dl; Unsaturated Iron Binding 113 ug/dL (112-347)
[2022-03-04] MEDS: morphine 4 mg/mL SDV 1 mL 2 MG IVP ×3 (12:23→23:48)
[2022-03-04] MEDS: hyDRALAzine 50 mg Tablet PO ×3 (12:27→20:43)
[2022-03-04] MEDS: insulin lispro 100 unit/1 mL SUBCUT ×2 (12:27→18:09)
[2022-03-04 17:03] LABS: Glucose Point of Care 143 mg/dL (70-110)
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
[2022-03-04] MEDS: vancomycin 750 MG in sodium chloride 0.9% 250 ML 250 MG IV (18:12)
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
--- NOTE | 2022-03-04 20:42 | P.CONIM_ITS ---
Providers/Reason For Consult Consulting Physician/Specialty*: [place]/TeleNephrology Reason for Consult*: ESRD management & dialysis needs Requesting Physician: Hospitalist Attending Physician: Maulik Perez MD Primary Care Provider: Sandy Kelly MD History of Present Illness History of Present Illness Kt Jett JR is a 56 year old male with h/o ESRD presented with left foot ulcer, found to have osteomyelitis, had surgery, telenephrology consulted this evening. His last HD was on Friday. Review of Systems General: Reports: 10 or more systems reviewed and unremarkable except in HPI and below Const: Denies: fever(s) or chills Card: Denies: chest pain or palpitations Resp: Denies: dyspnea or productive cough GI: Denies: abdominal pain, nausea or vomiting Musc: Denies: extremity pain Skin/Breast: Denies: rash Neuro: Denies: headache(s) Daniel/Lymph: Denies: easy bruising All/Imm: Denies: urticaria Medications/Allergies Home Medications Medication Instructions Recorded Confirmed Last Taken Type atorvastatin 20 mg tablet 20 mg PO QPM 07/13/19 03/03/22 03/01/22 21:00 History duloxetine 60 mg capsule,delayed 60 mg PO DAILY 07/13/19 03/03/22 03/01/22 21:00 History release sprinkle hydrocodone 10 mg-acetaminophen 1 - 2 tab PO Q6H PRN Pain 07/13/19 03/03/22 03/02/22 11:00 History 325 mg tablet nitroglycerin 0.4 mg sublingual 0.4 mg sublingual Q5M PRN chest 07/13/1903/03 Unknown History tablet (Nitrostat) pain pantoprazole 40 mg tablet,delayed 40 mg PO DAILY 07/13/19 03/03/22 03/01/22 21:00 History release insulin degludec 100 unit/mL 30 unit SUBCUT DAILY 03/28/20 03/03/22 03/01/22 21:00 History subcutaneous solution (Tresiba U-100 Insulin) metoprolol tartrate 50 mg tablet 50 mg PO BID 09/28/20 03/03/22 03/01/22 21:00 History isosorbide mononitrate 30 mg 30 mg PO DAILY #90 tabs 05/21/21 03/03/2222 09:00 Rx tablet,extended release 24 hr losartan 100 mg tablet 100 mg PO DAILY #90 tabs 06/13/21 03/03/22 03/01/22 21:00 Rx mupirocin 2 % topical ointment 1 applic topical BID #22 grams 02/21/22 03/03/22 03/01/22 21:00 Rx Cam Boot to the Left #1 ea 03/01/22 03/03/22 Unknown Rx bisacodyl 5 mg tablet,delayed 5 mg PO DAILY 03/03/22 03/03/22 03/01/22 21:00 History release clopidogrel 75 mg tablet 75 mg PO DAILY 03/03/22 03/03/22 03/01/22 21:00 History cyclobenzaprine 10 mg tablet 10 mg PO TID 03/03/22 03/03/22 03/01/22 21:00 History furosemide 40 mg tablet 40 mg PO DAILY 03/03/22 03/03/22 03/01/22 21:00 History hydralazine 50 mg tablet 50 mg PO QID 03/03/22 03/03/22 03/01/22 21:00 History lactulose 10 gram/15 mL (15 mL) 10 g PO DAILY 03/03/22 03/03/22 03/01/22 21:00 History oral solution lanthanum 1,000 mg chewable tablet 1,000 mg PO TID 03/03/22 03/03/22 03/01/22 21:00 History (Fosrenol) minoxidil 2.5 mg tablet 2.5 mg PO BID 03/03/22 03/03/22 03/01/22 21:00 History nifedipine 60 mg tablet,extended 60 mg PO DAILY 03/03/22 03/03/22 03/01/22 21:00 History release vitamin B complex-vitamin C-folic 1 tab PO DAILY 03/03/22 03/03/22 03/01/22 21:00 History acid 0.8 mg tablet Allergies Allergy/AdvReac Type Severity Reaction Status Date / Time No Known Allergies Allergy Verified 03/01/22 13:00 Current Medications Generic Name Dose Route Start Last Admin Trade Name Freq PRN Reason Stop Dose Admin Hydrocodone Bitart/Acetaminophen 1 tab 03/02/22 23:27 03/04/22 11:00 Hydrocodone-Acetaminophen 10-325 Mg Tablet PO 1 tab Q6H PRN Administration Pain Amlodipine Besylate 5 mg 03/03/22 21:00 03/03/22 21:44 Amlodipine 5 Mg Tablet PO Not Given BEDTIME NATHANAEL Atorvastatin Calcium 20 mg 03/03/22 18:00 03/04/22 18:08 Atorvastatin 40 Mg Tablet PO Not Given QPM NATHANAEL Duloxetine HCl 60 mg 03/03/22 09:00 03/04/22 09:28 Duloxetine 60 Mg Capsule PO 60 mg DAILY NATHANAEL Administration Hydralazine HCl 50 mg 03/04/22 13:00 03/04/22 18:07 Hydralazine 50 Mg Tablet PO 50 mg QID NATHANAEL Administration Piperacillin Sod/Tazobactam 50 mls @ 12.5 mls/hr 03/03/22 05:00 03/04/22 18:07 Sod 3.375 gm/ Sodium Chloride IV 12.5 mls/hr Q12H NATHANAEL Administration Protocol As Directed Vancomycin HCl 750 mg/ Sodium 250 mls @ 250 mls/hr 03/04/22 19:00 03/04/22 18:12 Chloride IV 250 mls/hr Q24H NATHANAEL Administration Insulin Glargine 20 unit 03/02/22 23:27 03/03/22 21:44 Insulin Glargine 100 Units/1 Ml SUBCUT 20 unit Q24H NATHANAEL Administration Insulin Human Lispro 0 unit 03/03/22 08:00 03/04/22 18:09 Insulin Lispro 100 Unit/1 Ml SUBCUT 2 unit TIDWM NATHANAEL Administration Protocol Isosorbide Mononitrate 30 mg 03/03/22 09:00 03/04/22 09:28 Isosorbide Mononitrate Er 30 Mg Tablet PO 30 mg DAILY NATHANAEL Administration Losartan Potassium 100 mg 03/03/22 09:00 03/04/22 09:29 Losartan 50 Mg Tablet PO 100 mg DAILY NATHANAEL Administration Metoprolol Tartrate 25 mg 03/03/22 09:00 03/04/22 18:06 Metoprolol Tartrate 50 Mg Tablet PO 25 mg BID NATHANAEL Administration Minoxidil 2.5 mg 03/04/22 18:00 03/04/22 18:11 Minoxidil 10 Mg Tablet PO Not Given BID COUNT INCLUDES THE [facility] Morphine Sulfate 2 mg 03/03/22 17:55 03/04/22 18:11 Morphine 4 Mg/Ml Sdv 1 Ml IVP 2 mg Q4H PRN Administration SEVERE PAIN Pantoprazole Sodium 40 mg 03/03/22 09:00 03/04/22 09:[address] 40 Mg Tablet PO 40 mg DAILY NATHANAEL Administration PFSH Acute PFSH: Medical History (Updated 03/04/22 @ 17:17 by Maulik Perez MD) Anemia CAD (coronary artery disease) Cardiomyopathy Chronic back pain CKD (chronic kidney disease) Diabetes mellitus Diabetes mellitus, type II End stage renal disease on dialysis ESRD (end stage renal disease) Essential hypertension Fibromyalgia GERD (gastroesophageal reflux disease) Hemodialysis access site with arteriovenous graft Hx of staphylococcal infection Hypertension Hypertensive emergency Infection due to Port-A-Cath Lumbar disc disease MSSA bacteremia NSTEMI (non-ST elevated myocardial infarction) Osteoarthritis Surgical History H/O circumcision History of cataract surgery History of coronary artery stent placement S/P carpal tunnel release S/P tonsillectomy Status post insertion of hemodialysis catheter Status post peritoneal dialysis Family History Mother Aneurysm Grandmother Cancer Sister Cancer Social History Smoking and tobacco status: never smoked Alcohol intake: never Lives independently: Yes Household members: none Housing: House Marital status: service: No Current occupational status: disabled History of recent travel: No Vitals/I&O/Wt Last Vital Signs Temp 98.1 F 03/04/22 16:00 Pulse 64 03/04/22 16:00 Resp 18 03/04/22 18:11 BP 173/77 03/04/22 16:00 Pulse Ox 98 03/04/22 18:11 O2 Del Method 03/04/22 16:00 03/04/22 03/04/22 03/04/22 06:59 14:59 22:59 Intake Total 240 / 1280 710 / 710 240 / 950 Output Total 100 / 105 Balance 140 / 1175 710 / 710 240 / 950 Physical Exam Const: GENERAL APPEARANCE: cooperative and comfortable ORIENTATION/CONSCIOUSNESS: Yes awake, Yes oriented to person, Yes oriented to place and Yes oriented to time Neuro: SENSORIUM/ORIENTATION: Yes oriented to person, Yes oriented to place and Yes oriented to time Data : 03/04/22 05:24 03/04/22 05:24 Micro: Microbiology 03/03/22 08:33 Gram Stain - Final Toe - #1 Anaerobic Culture - Preliminary Wound Culture - Preliminary Staphylococcus species 03/02/22 21:13 Blood Culture - Preliminary Blood NEGATIVE TO DATE 03/02/22 16:42 Blood Culture - Preliminary Blood NEGATIVE TO DATE A&P Assessment and plan (1) End stage renal disease on dialysis: No acute indication for dialysis today. 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
[2022-03-04 21:18] LABS: Glucose Point of Care 182 mg/dL (70-110)
[2022-03-04] MEDS: amlodipine 5 mg Tablet PO (21:36)
[2022-03-04] MEDS: insulin glargine 100 units/1 mL 20 UNIT SUBCUT (22:52)
[2022-03-05] VITALS (9 sets, daily range): BP systolic 153–183; BP diastolic 62–83; PULSE 61–78; RESP 16–18; TEMP 36.7–36.9; O2SAT 91–96
[2022-03-05 02:33] LABS: Basophils # 0.1 10^3/uL (0.0-0.1); Basophils % 0.8 %; Eosinophils # 0.6 10^3/uL (0.0-0.8); Lymphocytes # 1.2 10^3/uL (0.8-4.8); Lymphocytes % 15.6 %; Mean Corpuscular HGB Conc 32.3 g/dL (30.0-36.0); Mean Corpuscular Volume 93.1 fl (80-94); Mean Platelet Volume 9.1 fL (7.4-10.4); Monocytes # 0.7 10^3/uL (0.2-0.9); Monocytes % 8.6 %; Neutrophils # 5.11 10^3/uL (1.8-7.7); Neutrophils % 66.2 %; Nucleated Red Blood Cells % 0 %; Platelet Count 281 10^3/cmm (130-400); Red Blood Count 3.33 10^6/uL (4.1-5.3); Red Cell Distribution Width 13.9 % (12.1-15.1); White Blood Count 7.7 10^3/uL (4.0-10.0)
[2022-03-05 02:45] LABS: Erythrocyte Sedimentation Rate 53 mm/hr (0-10)
[2022-03-05 02:57] LABS: Alanine Aminotransferase 8 U/L (0-41); Albumin Level 3.5 g/dL (3.5-5.2); Alkaline Phosphatase 97 U/L (40-130); Anion Gap 16.8 (5-19); Aspartate Amino Transferase 17 U/L (0-40); Blood Urea Nitrogen 49 mg/dL (6-20); C Reactive Protein 34.3 mg/L (0.0-4.9); Calcium 9.1 mg/dL (8.5-10.5); Carbon Dioxide 29 mmol/L (22-29); Chloride 98 mmol/L (98-107); Chol HDL Ratio 3.17 mg/dL (1.0-5.00); Cholesterol 114 mg/dL (0-200); Globulin 4.1 g/dL (1.3-4.6); Glomerular Filtration Rate 5.8 mL/min (90-130); Glucose 143 mg/dL (65-115); HDL Cholesterol 36 mg/dL (60-100); LDL Cholesterol Calculated 56 mg/dL (50-129); Magnesium 2.4 mg/dL (1.7-2.3); Osmolality Calculated 303 mOsm/kg (285-295); Phosphorus 4.2 mg/dL (2.5-4.5); Potassium 4.8 mmol/L (3.5-5.1); Sodium 139 mmol/L (136-145); Total Bilirubin 0.3 mg/dL (0.15-1.2); Total Protein 7.6 g/dL (6.6-8.7); Triglycerides 109 mg/dL (0-150); VLDL Cholestrol Calculation 22 mg/dL (0-30)
[2022-03-05] MEDS: piperacillin-tazobactam 3.375 GM in sodium chloride 0.9% (plus) 50 ML IV (04:28)
--- NOTE | 2022-03-05 08:23 | P.PN_ITS ---
Subjective Subjective: Patient seen and evaluated at bedside this morning. Patient on his way to dialysis. He states that overall his pain is well controlled. He does get intermittent episodes of tingling and stinging. He denies any constitutional symptoms. Denies any other pedal complaints at this time. Vitals/I&O/Wt Last Vital Signs Temp 98.3 F 03/05/22 08:00 Pulse 65 03/05/22 08:00 Resp 16 03/05/22 08:00 BP 176/80 03/05/22 08:00 Pulse Ox 94 03/05/22 08:00 O2 Del Method 03/05/22 08:00 03/04/22 03/05/22 03/05/22 22:59 06:59 14:59 Intake Total 540 / 1250 120 / 1370 45.833 / 45.833 Output Total 300 / 300 Balance 240 / 950 120 / 1070 45.833 / 45.833 Physical Exam Narrative: GENERAL: A&O x 3, NAD VASCULAR: DP/PT palpable 1/4 with CFT intact to distal digits and less than 3 seconds DERM: LEFT FOOT: Full thickness ulceration plantar left 5th metataral that c ommunicates with ulcer to dorsal lateral aspect of 5th MTPJ. Positive probe to 5th MTPJ capsule. Active purulence from dorsal lateral foot wound. Surrounding erythema. No proximal lymphangetic streaking noted. Left foot incision is open and packed with iodoform packing gauze. No active drainage or purulence. RIGHT FOOT: Full thickness ulceration to plantar aspect of right 5th MTPJ measuring 4.5 x 2.5 x 0.2cm with 100% granular base. No probe to bone, tracking or undermining, stable. MSK:Left partial 4th ray resection NEURO: Diminished sensation to the level of the midfoot bilaterally 2/2 DPN Data : 03/05/22 02:02 03/05/22 02:02 Micro: Microbiology 03/03/22 08:33 Gram Stain - Final Toe - #1 Anaerobic Culture - Preliminary Wound Culture - Preliminary Staphylococcus species 03/02/22 21:13 Blood Culture - Preliminary Blood NEGATIVE TO DATE A&P Assessment and plan (1) Diabetic ulcer of foot associated with type 2 diabetes mellitus, with necrosis of bone: Status: Acute (2) Diabetic foot infection: Status: Acute (3) Pain in left foot: Status: Acute Plan -N.p.o. at midnight for procedure tomorrow 03/06/2022 at 7 AM -Plan for delayed primary closure with possible fillet of toe and flap closure left foot tomorrow morning -Continue antibiotics -Clinic cultures taken 03/01/22 in clinic show MRSA sensitive to tetracycline -Right foot dressing changes with betadine wet to dry -Heel weight bearing only to left foot using CAM boot -After delayed primary closure tomorrow, patient will likely be stable for discharge from podiatry standpoint when final antibiotic recommendations have been made -Discharge planning: Patient will need to be set up with home health if not already for dressing changes to lower extremities. 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
[2022-03-05 11:15] LABS: Glucose Point of Care 155 mg/dL (70-110)
[2022-03-05] MEDS: hyDRALAzine 50 mg Tablet PO ×3 (13:09→21:17)
--- NOTE | 2022-03-05 13:40 | PC.NURSE ---
Charge Nurse, Nat Bartlett RN was approached by Shaina Matute RN with [facility] that the patient has an IV in place to the same arm as his AV Fistula. I reviewed documentation and called and spoke with Dr. Last, Director of Anesthesiology and he states that he placed the IV superior to the AV Fistula and since it is non-pressurized, will not cause an issue. I notified Nat Bartlett of this as well as Shaina Matute.
--- NOTE | 2022-03-05 14:40 | PC.SOCIAL ---
IMM update IMM updated with patient. Verbalized an understanding. Copy Pg 2 provided. Initialled, dated, timed, and placed in chart.
[2022-03-05] MEDS: HYDROcodone-acetaminophen 10-325 mg Tablet 1 TAB PO ×2 (15:29→21:16)
--- NOTE | 2022-03-05 15:41 | PM.PN ---
Subjective Subjective: I am seeing him in follow up for ESRD management. He got HD this morning. No new issues Medications: Reviewed: Yes Vitals/I&O/Wt Last Vital Signs Temp 98.3 F 03/05/22 08:00 Pulse 65 03/05/22 08:00 Resp 16 03/05/22 08:00 BP 176/80 03/05/22 08:00 Pulse Ox 94 03/05/22 08:00 O2 Del Method 03/05/22 08:00 03/05/22 03/05/22 03/05/22 06:59 14:59 22:59 Intake Total 120 / 1370 530.000 / 530.000 Balance 120 / 1070 530.000 / 530.000 Physical Exam Const: COMMON NORMALS: no acute distress, patient oriented x3 and alert GENERAL APPEARANCE: cooperative and comfortable Neuro: COMMON NORMALS: patient oriented x3 SENSORIUM/ORIENTATION: Yes alert Data : 03/05/22 02:02 03/05/22 02:02 Micro: Microbiology 03/03/22 08:33 Gram Stain - Final Toe - #1 Anaerobic Culture - Preliminary Wound Culture - Preliminary Staphylococcus species A&P Assessment and plan (1) End stage renal disease on dialysis: We did hemodialysis today for 4hrs & pulled 4 lit of fluid. 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
--- NOTE | 2022-03-05 16:26 | P.PN_ITS ---
Subjective Subjective: Infectious disease progress note. No new complaints today. Awaiting return to OR tomorrow. Underwent hemodialysis today without any significant events. OR culture from 821 updated to reflect MRSA. Medications: Reviewed: Yes Vitals/I&O/Wt Last Vital Signs Temp 98.3 F 03/05/22 08:00 Pulse 65 03/05/22 08:00 Resp 16 03/05/22 08:00 BP 176/80 03/05/22 08:00 Pulse Ox 94 03/05/22 08:00 O2 Del Method 03/05/22 08:00 03/05/22 03/05/22 03/05/22 06:59 14:59 22:59 Intake Total 120 / 1370 530.000 / 530.000 Balance 120 / 1070 530.000 / 530.000 Physical Exam Narrative: General: No acute distress, AO x3 HEENT: PERRLA, pupils bilaterally equal and reactive, pallors not present Chest: Normal vesicular breath sounds, no added sounds, equal good air entry bilaterally CVS: S1-S2 regular, no murmurs, no tachycardia, no gallops, no rubs Abdomen: Soft, nontender, no organomegaly, bowel sounds present Neuro: No focal deficits, no facial deformity, AO x3, power 5/5 in all limbs Extremities: Bilateral feet with dressing in place currently. Not opened for exam Data : 03/05/22 02:02 03/05/22 02:02 Micro: Microbiology 03/03/22 08:33 Gram Stain - Final Toe - #1 Anaerobic Culture - Preliminary Wound Culture - Final Methicillin Resis Staph Aureus Ordered: SAGE and DAVIE, Anaer Comments: Comment left 5th toe Procedure Result Verified Site Gram Stain Final 03/03/22-1355 Result NO ORGANISMS SEEN Anaerobic Culture Preliminary 03/04/22-1407 NO ANAEROBES ISOLATED ON DAY 1 Wound Culture Final 03/05/22-1551 Organism 1 Methicillin Resis Staph Aureus Growth MODERATE DAY 2 CRITICAL RESULT YES/NO: YES CRITICAL CALLED BY: LUCY TO AND READ BACK BY: ANTONELLA DATE: 03/05/22 TIME: 1550 MRSA M.I.C. RX --------- ------ * Ampicillin 8 R * Ciprofloxacin >2 R * Clindamycin >4 R * Erythromycin >4 R * Gentamicin <=4 S * Levofloxacin >4 R * Linezolid 4 S * Oxacillin >2 R * Penicillin 8 R * Rifampin <=1 S * Tetracycline <=4 S * Trimethoprim/Sulfamethoxazole <=0.5/9.5 S Vancomycin 2 S Daptomycin 1 S Wound Culture Preliminary (changed) 03/04/22- A&P Assessment and plan (1) Osteomyelitis of metatarsal: Clinical presentation with open wound probing to bone encountered purulence in the OR is clinically consistent with osteomyelitis. Status post incision and drainage with partial resection of the fifth metatarsal head on 03/03 Wound cultures from the OR updated to reflect MRSA Recommend treatment with 6 weeks of IV vancomycin which can be timed with dialysis (03/03-04/14) Plan for delayed primary closure on 03/06 Discontinue piperacillin tazobactam as all cultures thus far show MRSA only. 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
--- NOTE | 2022-03-05 16:48 | P.PN_ITS ---
Subjective Subjective: No complaints overnight. Patient undergoing dialysis today. Somehow even after consulting nephrology earlier in the day yesterday patient could not get dialysis yesterday. Blood pressure is better during dialysis. Plan for delayed closure tomorrow. Has remained hemodynamically stable and afeb rile otherwise. On review of MAR patient has not received any of his oral medications as as per the nurse patient was in dialysis. No vital started since 8 AM. Medications: Reviewed: Yes Vitals/I&O/Wt Last Vital Signs Temp 98.3 F 03/05/22 08:00 Pulse 65 03/05/22 08:00 Resp 16 03/05/22 08:00 BP 176/80 03/05/22 08:00 Pulse Ox 94 03/05/22 08:00 O2 Del Method 03/05/22 08:00 03/05/22 03/05/22 03/05/22 06:59 14:59 22:59 Intake Total 120 / 1370 530.000 / 530.000 Balance 120 / 1070 530.000 / 530.000 Physical Exam Const: COMMON NORMALS: no acute distress and patient oriented x3 HENMT: COMMON NORMALS: normocephalic HEAD & SCALP: normocephalic Eye: COMMON NORMALS: Equal, round and reactive pupils present and EOMs intact bilaterally PUPIL: Yes Equal, round and reactive pupils present Neck/C-Spine: COMMON NORMALS: no JVD Resp: COMMON NORMALS: normal respiratory effort, No retractions, No use of accessory muscles and clear to auscultation bilaterally AUSCULTATION: clear to auscultation bilaterally Cardio: COMMON NORMALS: no JVD, regular rate, regular rhythm, S1 normal heart sound present and S2 normal heart sound present RATE: regular rate RHYTHM: regular rhythm HEART SOUNDS: S1 normal heart sound present and S2 normal heart sound present GI: COMMON NORMALS: Normal to inspection, nondistended, normoactive bowel sounds present, Soft to palpation, non-tender, No hepatosplenomegaly present, no masses and no bruits PALPATION: Yes Soft to palpation and Yes No hepatos plenomegaly present Extremity: COMMON NORMALS: capillary refill normal, no clubbing, cyanosis or edema, no calf tenderness and no pedal edema NARRATIVE EXTREMITY EXAM: Left foot, surgically dressed. Right foot bandaged. Neuro: COMMON NORMALS: patient oriented x3 Psych: COMMON NORMALS: mental status grossly normal Data : 03/05/22 02:02 03/05/22 02:02 Micro: Microbiology 03/03/22 08:33 Gram Stain - Final Toe - #1 Anaerobic Culture - Preliminary Wound Culture - Final Methicillin Resis Staph Aureus A&P Assessment and plan (1) Osteomyelitis of metatarsal: Status: Acute (2) Diabetic ulcer of foot associated with type 2 diabetes mellitus, with necrosis of bone: Appreciate podiatry and ID recommendations. Post I&D with partial resection of fifth metatarsal on 03/03. Plan for delayed closure on 03/06. N.p.o. after midnight. OR cultures growing MRSA. Stop Zosyn. Continue vancomycin. Plan for IV vancomycin as an outpatient. Blood cultures so far negative. Bilateral ABIs negative for PAD. Status: Acute (3) Pain in left foot: Status: Acute (4) Diabetes mellitus, type II: Insulin sliding scale. A1c 5.8. Diabetes under control. Status: Acute (5) Hypertension: Goal blood pressure less than 140/90 mmHg Blood pressure is elevated. Continue with home dose of minoxidil, metoprolol, losartan, hydralazine. Uptitrate as per goal. Status: Acute Qualifiers: Hypertension type: essential hypertension Qualified Code(s): I10 - Essential (primary) hypertension (6) CAD (coronary artery disease): Chest pain-free. Continue with home dose of atorvastatin. Check lipid panel. Status: Acute Qualifiers: Coronary Disease-Associated Artery/Lesion type: [place] artery [place] vs. transplanted heart: [place] heart Associated angina: without angina Qualified Code(s): I25.10 - Atherosclerotic heart disease of [place] coronary a rtery without angina pectoris (7) End stage renal disease on dialysis: Nephrology consulted today. Dialysis Friday, Friday, Friday. Status: Acute (8) Cardiomyopathy: No acute exacerbation. Last echocardiogram shows mildly reduced EF. Status: Acute Qualifiers: Cardiomyopathy type: ischemic Qualified Code(s): I25.5 - Ischemic cardiomyopathy Plan Continue other chronic medications. Analgesia: Hydrocodone 10 mg every 6 hours as needed, morphine 1 mg every 4 hours as needed Glycemic control: Lantus 20 units nightly, low-dose protocol sliding scale AC at bedtime Nutrition: Cardiac carb consistent diet CODE STATUS: Full code PUD prophylaxis: Protonix DVT prophylaxis: Hold off on mechanical and medical prophylaxis Discharge planning: Possibly home with home health as patient would require prolonged antibiotics and wound care Continue with [facility] at [facility]. This documentation was created by [employer] branch operations manager software. Every effort was made to ensure accuracy of branch operations manager. Any obvious errors or omissions should be clarified with the author of the document. Attestations Medical Necessity Statement*: Requires further hospitalization for management of osteomyelitis, deep foot infection from MRSA, ESRD on hemodialysis Time Spent in Patient Care: Greater than 35 minutes Coding Level of Care Code Acute Manager Relocation for [facility] Fwd Diagnoses Osteomyelitis of metatarsal M86.9 Diabetic ulcer of foot associated with type 2 diabetes mellitus, with necrosis of bone E11.621; L97.504 Pain in left foot M79.672 Diabetes mellitus, type II E11.9 Hypertension I10 Hypertension type: essential hypertension CAD (coronary artery disease) I25.10 Coronary Disease-Associated Artery/Lesion type: [place] artery [place] vs. transplanted heart: [place] heart Associated angina: without angina End stage renal disease on dialysis N18.6; Z99.2 Cardiomyopathy I25.5 Cardiomyopathy type: ischemic
[2022-03-05 17:04] LABS: Glucose Point of Care 175 mg/dL (70-110)
[2022-03-05] MEDS: metoprolol tartrate 50 mg Tablet 25 MG PO (17:18)
[2022-03-05] MEDS: insulin lispro 100 unit/1 mL SUBCUT (17:20)
[2022-03-05 20:40] LABS: Glucose Point of Care 135 mg/dL (70-110)
[2022-03-05] MEDS: amlodipine 5 mg Tablet PO (21:17)
[2022-03-06] VITALS (22 sets, daily range): BP systolic 104–203; BP diastolic 50–83; PULSE 57–71; RESP 13–20; TEMP 36.3–37.1; O2SAT 90–98
[2022-03-06] MEDS: insulin glargine 100 units/1 mL 20 UNIT SUBCUT ×2 (00:03→23:55)
[2022-03-06] MEDS: HYDROmorphone 1 mg/mL INJ 1 mL 0.5 MG IVP (00:26)
[2022-03-06] MEDS: ondansetron 2 mg/ML SDV 2 mL 4 MG IVP (06:32)
--- NOTE | 2022-03-06 06:41 | W.PM.OPSUD ---
Surgery/Procedure H&P Update DATE OF PROCEDURE: March 06, 2022 DATE H&P PERFORMED: 03/02/22 CHANGES TO PREVIOUS DOCUMENTATION: No changes to previous history and physical PREOP DIAGNOSIS: Osteomyelitis left foot PRIMARY INDICATION FOR PROCEDURE: Osteomyelitis left foot PLANNED PROCEDURE: Operation Date: 03/03/22 08:00 Proposed Procedures p Ray Resection with removal of partial non viable tissue(Left) - Gage Connelly DPM Operation Date: 03/06/22 07:00 Proposed Procedures p Delayed Wound Closure possible flap closure left foot(Left) - Gage Connelly DPM
[2022-03-06 06:49] LABS: Basophils # 0.1 10^3/uL (0.0-0.1); Eosinophils # 0.6 10^3/uL (0.0-0.8); Eosinophils % 6.9 %; Hematocrit 37.6 % (42.0-52.0); Hemoglobin 11.9 g/dL (11.7-16.6); Lymphocytes # 1.7 10^3/uL (0.8-4.8); Lymphocytes % 20.7 %; Mean Corpuscular HGB Conc 31.6 g/dL (30.0-36.0); Mean Corpuscular Volume 94.7 fl (80-94); Mean Platelet Volume 9.2 fL (7.4-10.4); Monocytes # 0.7 10^3/uL (0.2-0.9); Neutrophils # 5.09 10^3/uL (1.8-7.7); Neutrophils % 61.8 %; Nucleated Red Blood Cells % 0 %; Platelet Count 292 10^3/cmm (130-400); Red Blood Count 3.97 10^6/uL (4.1-5.3); Red Cell Distribution Width 14.1 % (12.1-15.1); White Blood Count 8.2 10^3/uL (4.0-10.0)
[2022-03-06] MEDS: sodium chloride 0.9% 1,000 ML 30 ML IV (07:01)
[2022-03-06 07:07] LABS: Alanine Aminotransferase 11 U/L (0-41); Albumin Level 3.4 g/dL (3.5-5.2); Alkaline Phosphatase 100 U/L (40-130); Blood Urea Nitrogen 32 mg/dL (6-20); Calcium 9.5 mg/dL (8.5-10.5); Carbon Dioxide 26 mmol/L (22-29); Chloride 96 mmol/L (98-107); Globulin 4.9 g/dL (1.3-4.6); Glomerular Filtration Rate 8.3 mL/min (90-130); Glucose 129 mg/dL (65-115); Osmolality Calculated 293 mOsm/kg (285-295); Sodium 137 mmol/L (136-145); Total Bilirubin 0.4 mg/dL (0.15-1.2); Total Protein 8.3 g/dL (6.6-8.7)
[2022-03-06 07:47] LABS: Anion Gap 19.6 (5-19); Potassium 4.6 mmol/L (3.5-5.1)
[2022-03-06 07:48] LABS: Aspartate Amino Transferase 23 U/L (0-40)
--- NOTE | 2022-03-06 08:02 | ANES.PREANE2 ---
Pre-Anesthetic Assessment Height/Weight: Height 1.83 m Weight 117.934 kg Temp Pulse Resp BP Pulse Ox O2 Del Method 97.9 F 71 18 190/78 96 03/06/22 06:38 03/06/22 06:38 03/06/22 06:38 03/06/22 06:38 03/06/22 06:38 03/06/22 06:38 Preop Diagnosis: Osteomyelitis left foot Operation Date: 03/03/22 08:00 Proposed Procedures p Ray Resection with removal of partial non viable tissue(Left) - Gage Connelly DPM Operation Date: 03/06/22 07:00 Proposed Procedures p Delayed Wound Closure possible flap closure left foot(Left) - Gage Connelly DPM Familial anesthetic complications: None Was Beta Flores taken within 24 hours: Yes Was Clonidine taken within 24 hours: N/A Last intake: Intake Last Liquid Date 03/05/22 Last Liquid Time 21:00 Last Solid Date 03/05/22 Last Solid Time 20:30 Social No alcohol and No tobacco Exam alert, oriented x 3, clear to auscultation bilaterally and regular rate & rhythm Airway Submandibular: within normal limits Cervical ROM: within normal limits Mallampati: Class II Dentition: chipped Comments: Comments: Poor dentition CV/HEM Anemia, Coronary Artery Disease, Congestive Heart Failure and Hypertension Chronic Renal Failure GI Gastroesophageal Reflux Disease Metabolic Hyperlipidemia and Morbid Obesity [facility] [place] Lower Back Pain Anesthetic Plan ASA status: 3 Anesthesia: Choice Medications/Allergies Home Medications Medication Instructions Recorded Confirmed Last Taken Type atorvastatin 20 mg tablet 20 mg PO QPM 07/13/19 03/03/22 03/01/22 21:00 History duloxetine 60 mg capsule,delayed 60 mg PO DAILY 07/13/19 03/03/22 03/01/22 21:00 History release sprinkle hydrocodone 10 mg-acetaminophen 1 - 2 tab PO Q6H PRN Pain 07/13/19 03/03/22 03/02/22 11:00 History 325 mg tablet nitroglycerin 0.4 mg sublingual 0.4 mg sublingual Q5M PRN chest 07/13/19 03/03/22 Unknown History tablet (Nitrostat) pain pantoprazole 40 mg tablet,delayed 40 mg PO DAILY 07/13/19 03/03/22 03/01/22 21:00 History release insulin degludec 100 unit/mL 30 unit SUBCUT DAILY 03/28/20 03/03/22 03/01/22 21:00 History subcutaneous solution (Tresiba U-100 Insulin) metoprolol tartrate 50 mg tablet 50 mg PO BID 09/28/20 03/03/22 03/01/22 21:00 History isosorbide mononitrate 30 mg 30 mg PO DAILY #90 tabs 05/21/21 03/03/22 03/01/22 09:00 Rx tablet,extended release 24 hr losartan 100 mg tablet 100 mg PO DAILY #90 tabs 06/13/21 03/03/22 03/01/22 21:00 Rx mupirocin 2 % topical ointment 1 applic topical BID #22 grams 02/21/22 03/03/22 03/01/22 21:00 Rx Cam Boot to the Left #1 ea 03/01/22 03/03/22 Unknown Rx bisacodyl 5 mg tablet,delayed 5 mg PO DAILY 03/03/22 03/03/22 03/01/22 21:00 History release clopidogrel 75 mg tablet 75 mg PO DAILY 03/03/22 03/03/22 03/01/22 21:00 History cyclobenzaprine 10 mg tablet 10 mg PO TID 03/03/22 03/03/22 03/01/22 21:00 History furosemide 40 mg tablet 40 mg PO DAILY 03/03/22 03/03/22 03/01/22 21:00 History hydralazine 50 mg tablet 50 mg PO QID 03/03/22 03/03/22 03/01/22 21:00 History lactulose 10 gram/15 mL (15 mL) 10 g PO DAILY 03/03/22 03/03/22 03/01/22 21:00 History oral solution lanthanum 1,000 mg chewable tablet 1,000 mg PO TID 03/03/22 03/03/22 03/01/22 21:00 History (Fosrenol) minoxidil 2.5 mg tablet 2.5 mg PO BID 03/03/22 03/03/22 03/01/22 21:00 History nifedipine 60 mg tablet,extended 60 mg PO DAILY 03/03/22 03/03/22 03/01/22 21:00 History release vitamin B complex-vitamin C-folic 1 tab PO DAILY 03/03/22 03/03/22 03/01/22 21:00 History acid 0.8 mg tablet Allergies Allergy/AdvReac Type Severity Reaction Status Date / Time No Known Allergies Allergy Verified 03/01/22 13:00 Current Medications Generic Name Dose Route Start Last Admin Trade Name Freq PRN Reason Stop Dose Admin Amlodipine Besylate 5 mg 03/03/22 21:00 03/05/22 21:17 Amlodipine 5 Mg Tablet PO 5 mg BEDTIME NATHANAEL Administration Atorvastatin Calcium 20 mg 03/03/22 18:00 03/05/22 17:19 Atorvastatin 40 Mg Tablet PO Not Given QPM NATHANAEL Duloxetine HCl 60 mg 03/03/22 09:00 03/05/22 09:32 Duloxetine 60 Mg Capsule PO Not Given DAILY [facility] Hydralazine HCl 50 mg 03/04/22 13:00 03/05/22 21:17 Hydralazine 50 Mg Tablet PO 50 mg QID NATHANAEL Administration Hydromorphone HCl 0.5 mg 03/06/22 00:01 03/06/22 00:26 Hydromorphone 1 Mg/Ml Inj 1 Ml IVP 0.5 mg Q8H PRN Administration FOR SEVERE BREAKTHROUGH PAIN Sodium Chloride 1,000 mls @ 30 mls/hr 03/06/22 06:30 03/06/22 07:01 Sodium Chloride 0.9% IV 03/07/22 06:29 30 mls/hr .Q24H NATHANAEL Administration Insulin Glargine 20 unit 03/02/22 23:27 03/06/22 00:03 Insulin Glargine 100 Units/1 Ml SUBCUT 20 unit Q24H NATHANAEL Administration Insulin Human Lispro 0 unit 03/03/22 08:00 03/05/22 17:20 Insulin Lispro 100 Unit/1 Ml SUBCUT 2 unit TIDWM NATHANAEL Administration Protocol Isosorbide Mononitrate 30 mg 03/03/22 09:00 03/05/22 09:33 Isosorbide Mononitrate Er 30 Mg Tablet PO Not Given DAILY [facility] Losartan Potassium 100 mg 03/03/22 09:00 03/05/22 09:33 Losartan 50 Mg Tablet PO Not Given DAILY [facility] Metoprolol Tartrate 25 mg 03/03/22 09:00 03/05/22 17:18 Metoprolol Tartrate 50 Mg Tablet PO 25 mg BID NATHANAEL Administration Minoxidil 2.5 mg 03/04/22 18:00 03/05/22 17:20 Minoxidil 10 Mg Tablet PO Not Given BID NATHANAEL Morphine Sulfate 2 mg 03/03/22 17:55 03/04/22 23:48 Morphine 4 Mg/Ml Sdv 1 Ml IVP 2 mg Q4H PRN Administration SEVERE PAIN Ondansetron HCl 4 mg 03/06/22 06:29 03/06/22 06:32 Ondansetron 2 Mg/Ml Sdv 2 Ml IVP 4 mg Q5M PRN Administration NAUSEA AND VOMITING Pantoprazole Sodium 40 mg 03/03/22 09:00 03/05/22 09:[address] 40 Mg Tablet PO Not Given DAILY [facility] Anesthesia Medical History Anemia CAD (coronary artery disease) Cardiomyopathy Chronic back pain CKD (chronic kidney disease) Diabetes mellitus Diabetes mellitus, type II End stage renal disease on dialysis ESRD (end stage renal disease) Essential hypertension Fibromyalgia GERD (gastroesophageal reflux disease) Hemodialysis access site with arteriovenous graft Hx of staphylococcal infection Hypertension Hypertensive emergency Infection due to Port-A-Cath Lumbar disc disease MSSA bacteremia NSTEMI (non-ST elevated myocardial infarction) Osteoarthritis Surgical History H/O circumcision History of cataract surgery History of coronary artery stent placement S/P carpal tunnel release S/P tonsillectomy Status post insertion of hemodialysis catheter Status post peritoneal dialysis Family History Mother Aneurysm Grandmother Cancer Sister Cancer Social History Smoking and tobacco status: never smoked Alcohol intake: never Lives independently: Yes Household members: none Housing: House Marital status: service: No Current occupational status: disabled History of recent travel: No Data Anesthesia : 03/06/22 06:30 03/06/22 06:30 Short CBC 03/05/22 03/06/22 Range/Units 02:02 06:30 WBC 7.7 8.2 (4.0-10.0) 10^3/uL Hgb 10.0 L 11.9 (11.7-16.6) g/dL Hct 31.0 L 37.6 L (42.0-52.0) % MCV 93.1 94.7 H (80-94) fl Plt Count 281 292 (130-400) 10^3/cmm Neut % (Auto) 66.2 61.8 % Neut # (Auto) 5.11 5.09 (1.8-7.7) 10^3/uL BMP 03/05/22 03/06/22 02:02 06:30 Sodium 139 137 Potassium 4.8 4.6 Chloride 98 96 L Carbon Dioxide 29 26 BUN 49 H 32 H Creatinine 9.4 H* 6.9 H* Glucose 143 H 129 H Calcium 9.1 9.5 Liver Function 03/05/22 03/06/22 Range/Units 02:02 06:30 Total Bilirubin 0.3 0.4 (0.15-1.2) mg/dL AST 17 23 (0-40) U/L ALT 8 11 (0-41) U/L Alkaline Phosphatase 97 100 (40-130) U/L Albumin 3.5 3.4 L (3.5-5.2) g/dL Coags 03/05/22 03/05/22 02:02 02:02 ESR 53 H C-Reactive Protein 34.3 H Microbiology 03/03/22 08:33 Gram Stain - Final Toe - #1 Anaerobic Culture - Preliminary Wound Culture - Final Methicillin Resis Staph Aureus Cardiac Studies: Echocardiogram Ultrasound 09/04/20
[2022-03-06] MEDS: pantoprazole DR 40 mg Tablet PO (08:49)
[2022-03-06] MEDS: duloxetine 60 mg Capsule PO (08:49)
[2022-03-06] MEDS: hyDRALAzine 50 mg Tablet PO ×2 (08:49→12:10)
[2022-03-06] MEDS: isosorbide mononitrate ER 30 mg Tablet PO (08:49)
[2022-03-06] MEDS: metoprolol tartrate 50 mg Tablet 25 MG PO (08:50)
[2022-03-06] MEDS: losartan 50 mg Tablet 100 MG PO (08:50)
[2022-03-06] MEDS: vancomycin 1,000 MG in sodium chloride 0.9% 250 ML 250 MG IV (10:20)
[2022-03-06 11:15] LABS: Glucose Point of Care 157 mg/dL (70-110)
[2022-03-06] MEDS: insulin lispro 100 unit/1 mL SUBCUT ×2 (12:23→17:34)
--- NOTE | 2022-03-06 13:02 | ANE.PACU2 ---
Inpatient post-anesthesia follow up: Airway intact: Yes Vital signs: Temperature 98.0 F Pulse Rate 62 Respiratory Rate 18 Blood Pressure 179/79 Pulse Oximetry 95 Oxygen Delivery Me thod Room Air Oxygen Flow Rate 6 Fraction of Inspir ed Oxygen Hydration adequate: Yes Nausea and vomiting: No Pain level: 2 Mental status: Baseline
[2022-03-06] MEDS: HYDROcodone-acetaminophen 10-325 mg Tablet PO ×2 (14:20→21:15)
--- NOTE | 2022-03-06 14:36 | P.PN_ITS ---
Subjective Subjective: I am seeing him for ESRD management. Got HD today. No new complaints Medications: Reviewed: Yes Vitals/I&O/Wt Last Vital Signs Temp 98.5 F 03/06/22 14:12 Pulse 69 03/06/22 14:12 Resp 17 03/06/22 14:12 BP 158/63 03/06/22 14:12 Pulse Ox 90 03/06/22 14:12 O2 Del Method 03/06/22 14:12 O2 Flow Rate 6 03/06/22 08:02 03/05/22 03/06/22 03/06/22 22:59 06:59 14:59 Intake Total 700 / 1530.000 0 / 1530.000 660 / 660 Output Total 550 / 4850 2 / 2 Balance 700 / -2770.000 -550 / -3320.000 658 / 658 Weight last 48 hrs Weight 118 kg Physical Exam Const: COMMON NORMALS: no acute distress and patient oriented x3 GENERAL APPEARANCE: cooperative and comfortable Neuro: COMMON NORMALS: patient oriented x3 Data : 03/06/22 06:30 03/06/22 06:30 Micro: Microbiology 03/03/22 08:33 Gram Stain - Final Toe - #1 Anaerobic Culture - Preliminary Wound Culture - Final Methicillin Resis Staph Aureus A&P Assessment and plan (1) End stage renal disease on dialysis: Got HD for 3 hrs today & we pulled 1 lit. Tolerated it well. Next HD on fri if he is still in the hosp. 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
--- NOTE | 2022-03-06 14:38 | PM.OP ---
Operative Report Date of procedure: March 06, 2022 Pre-op diagnosis: Preop Diagnosis Osteomyelitis left foot Preop Diagnosis Osteomyelitis left foot fifth metatarsal Post-op diagnosis: Osteomyelitis left foot fifth metatarsal Post-op findings: No clinical signs of residual infection Procedure done: Left foot delayed primary closure CPT 91516 Implants: None Specimens removed/disposition: None Surgeon: Dr. Gage Connelly DPM Estimated blood loss: Less than 5 cc Complications: None Findings: Adequate soft tissue coverage. Skin flap closure not necessary. Brief History: Patient had history of left foot chronic ulcerations of fifth metatarsal head with clinical evidence of osteomyelitis. He was admitted to the floor for IV antibiotics and further work-up and evaluation. He underwent partial fifth ray resection of left foot on 03/03/2022. Procedure: Patient is a 56-year-old male that underwent partial fifth ray amputation left foot secondary to osteomyelitis on 03/03/2022. The patient returns to the operating room today for delayed primary closure left foot. A lengthy discussion regarding the procedure, including risks and complications has been had with the patient and is noted in the recent clinic note. Written and verbal consent have been obtained. All patient questions have been answered to the patient?s satisfaction. No written or verbal guarantees have been given or implied. The patient has been NPO since midnight. The history has been reviewed and the history and physical is current. The signed consent was confirmed and placed in the patient chart. Patient imaging has been reviewed and is consistent with the diagnosis. On left on the rney in the supine position. IV antibiotics were given by the anesthesia team as preoperative surgical prophylaxis. IV sedation was then performed by the anesthesia team. A pneumatic tourniquet was then placed about the left ankle. The operative extremity was then prepped and draped in the usual fashion. The extremity was then elevated and exsanguinated before the tourniquet was inflated to 250 mmHg. After inflation, the following procedure was then performed. Attention was directed to the left foot where the open surgical incision from the partial fifth ray amputation was visualized. The tissues were normalized and noted to be healthy in nature. Mild fibrotic changes to subcutaneous tissue. No active drainage, no purulence or signs of deep space infection. Using a rongeur the fibrotic tissue was debrided from the wound. A #15 blade was used to freshen up the skin edges. The incision was extended 1 cm medially on the plantar aspect of the foot to ellipse a small portion of plantar skin to allow for more adequate reapproximation of the skin edges. The site was then irrigated with copious months of sterile saline. After irrigation, the incision site was reapproximated and closed using accommodation of 3-0 nylon and 2-0 Prolene and accommodation of simple and retention stitch fashion. The tourniquet was let down good hyperemic response was noted to all digits of the left foot. The incision site was dressed with Betadine soaked Adaptic, 4 x 4 gauze, Kerlix and Stefano bandage. The patient tolerated the procedure and anesthesia well and without complication. The patient was transported from the operating room to the recovery room with vital signs stable and vascular status intact to all digits of the left foot. Thepatient was instructed to remain minimally weightbearing to the operative extremity in cam boot to heel only, to keep surgical dressing clean, dry and intact. The patient will be transferred back to the floor once anesthesia criteria is met. After closing the left foot incision site today. The patient is cleared for discharge from podiatry standpoint with follow-up next week with Dr. Enciso. The patient will be discharged home once cleared by primary team and other managing providers. Recommendations for outpatient antibiotics will be discussed with managing team.
--- NOTE | 2022-03-06 16:31 | P.PN_ITS ---
Subjective Subjective: No acute events overnight. Today morning patient underwent secondary closure, dialysis. Trough levels were not drawn prior to dialysis. Patient was given 1 g of vancomycin at the end of dialysis. Blood pressures still elevated. Today patient did get blood pressure medications. Medications: Reviewed: Yes Vitals/I&O/Wt Last Vital Signs Temp 97.7 F 03/06/22 14:16 Pulse 62 03/06/22 14:16 Resp 16 03/06/22 14:16 BP 183/78 03/06/22 14:16 Pulse Ox 90 03/06/22 14:12 O2 Del Method 03/06/22 14:12 O2 Flow Rate 6 03/06/22 08:02 03/06/22 03/06/22 03/06/22 06:59 14:59 22:59 Intake Total 0 / 1530.000 960 / 960 Output Total 550 / 4850 1602 / 1602 Balance -550 / -3320.000 -642 / -642 Weight last 48 hrs Weight 300 g Weight 118 kg Physical Exam Const: COMMON NORMALS: no acute distress and patient oriented x3 HENMT: COMMON NORMALS: normocephalic HEAD & SCALP: normocephalic Eye: COMMON NORMALS: Equal, round and reactive pupils present and EOMs intact bilaterally PUPIL: Yes Equal, round and reactive pupils present Neck/C-Spine: COMMON NORMALS: no JVD Resp: COMMON NORMALS: normal respiratory effort, No retractions, No use of accessory muscles and clear to auscultation bilaterally AUSCULTATION: clear to auscultation bilaterally Cardio: COMMON NORMALS: no JVD, regular rate, regular rhythm, S1 normal heart sound present and S2 normal heart sound present RATE: regular rate RHYTHM: regular rhythm HEART SOUNDS: S1 normal heart sound present and S2 normal heart sound present GI: COMMON NORMALS: Normal to inspection, nondistended, normoactive bowel sounds present, Soft to palpation, non-tender, No hepatosplenomegaly present, no masses and no bruits PALPATION: Yes Soft to palpation and Yes No hepatosplenomegaly present Extremity: COMMON NORMALS: capillary refill normal, no clubbing, cyanosis or edema, no calf tenderness and no pedal edema NARRATIVE EXTREMITY EXAM: Left foot, surgically dressed. Right foot bandaged. Neuro: COMMON NORMALS: patient oriented x3 Psych: COMMON NORMALS: mental status grossly normal Data : 03/06/22 06:30 03/06/22 06:30 Micro: Microbiology 03/03/22 08:33 Gram Stain - Final Toe - #1 Anaerobic Culture - Preliminary Wound Culture - Final Methicillin Resis Staph Aureus A&P Assessment and plan (1) Osteomyelitis of metatarsal: Status: Acute (2) Diabetic ulcer of foot associated with type 2 diabetes mellitus, with necrosis of bone: Appreciate podiatry and ID recommendations. Post I&D with partial resection of fifth metatarsal on 03/03. Plan for delayed closure on 03/06. N.p.o. after midnight. OR cultures growing MRSA. Stop Zosyn. Continue vancomycin. Plan for IV vancomycin as an outpatient with dialysis as per Vanco trough levels. Blood cultures so far negative. Bilateral ABIs negative for PAD. Wound care as per podiatry. Weight bearing versus nonweightbearing as per podiatry. Status: Acute (3) Pain in left foot: Status: Acute (4) Diabetes mellitus, type II: Insulin sliding scale. A1c 5.8. Diabetes under control. Status: Acute (5) Hypertension: Goal blood pressure less than 140/90 mmHg Blood pressure is elevated. Continue with home dose of minoxidil, losartan. Increase dose of hydralazine to 75 mg 4 times daily, amlodipine to 10 mg nightly. Switch metoprolol 25 mg twice daily to Coreg 12.5 mg twice daily. Uptitrate as per goal. Status: Acute Qualifiers: Hypertension type: essential hypertension Qualified Code(s): I10 - Essential (primary) hypertension (6) CAD (coronary artery disease): Chest pain-free. Continue with home dose of atorvastatin. Check lipid panel. Status: Acute Qualifiers: Coronary Disease-Associated Artery/Lesion type: [place] artery [place] vs. transplanted heart: [place] heart Associated angina: without angina Qualified Code(s): I25.10 - Atherosclerotic heart disease of [place] coronary artery without angina pectoris (7) End stage renal disease on dialysis: Nephrology consulted today. Dialysis Friday, Friday, Friday. Status: Acute (8) Cardiomyopathy: No acute exacerbation. Last echocardiogram shows mildly reduced EF. Status: Acute Qualifiers: Cardiomyopathy type: ischemic Qualified Code(s): I25.5 - Ischemic cardiomyopathy Plan Continue other chronic medications. Analgesia: Hydrocodone 10 mg every 6 hours as needed, morphine 1 mg every 4 hours as needed Glycemic control: Lantus 20 units nightly, low-dose protocol sliding scale AC at bedtime Nutrition: Cardiac carb consistent diet CODE STATUS: Full code PUD prophylaxis: Protonix DVT prophylaxis: Hold off on mechanical and medical prophylaxis Discharge planning: Discharge plan discussed in detail with the patient. Options discussed at home health versus SNF. SNF was discussed in detail with the patient as patient would be nonweightbearing most likely along with regular needs of dressing changes. Patient has been noncompliant with nonweightbearing during hospitalization. Patient declining SNF. Patient will require IV ant ibiotics as an outpatient for next 6 weeks. Continue with care at [facility]. This documentation was created by [employer] general manager oracle data cloud software. Every effort was made to ensure accuracy of general manager oracle data cloud. Any obvious errors or omissions should be clarified with the author of the document. Plan for the day: Dialysis, line draw prior to dialysis. Secondary closure of the wound. Increase hydralazine to 75 daily, amlodipine to 10 mg daily. Switch metoprolol to Coreg 12.5 twice daily. PT evaluation. Discharge planning. 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 Fwd Diagnoses Osteomyelitis of metatarsal M86.9 Diabetic ulcer of foot associated with type 2 diabetes mellitus, with necrosis of bone E11.621; L97.504 Pain in left foot M79.672 Diabetes mellitus, type II E11.9 Hypertension I10 Hypertension type: essential hypertension CAD (coronary artery disease) I25.10 Coronary Disease-Associated Artery/Lesion type: [place] artery [place] vs. transplanted heart: [place] heart Associated angina: without angina End stage renal disease on dialysis N18.6; Z99.2 Cardiomyopathy I25.5 Cardiomyopathy type: ischemic
[2022-03-06 17:15] LABS: Glucose Point of Care 197 mg/dL (70-110)
[2022-03-06] MEDS: hyDRALAzine 25 mg Tablet PO (17:30)
[2022-03-06] MEDS: hyDRALAzine 50 mg Tablet 75 MG PO ×2 (17:33→21:02)
[2022-03-06] MEDS: atorvastatin 40 mg Tablet 20 MG PO (17:33)
[2022-03-06] MEDS: minoxidil 10 mg Tablet 2.5 MG PO (17:36)
[2022-03-06] MEDS: carvedilol 12.5 mg Tablet PO (17:48)
[2022-03-06] MEDS: amlodipine 5 mg Tablet 10 MG PO (21:03)
[2022-03-06 21:36] LABS: Glucose Point of Care 127 mg/dL (70-110)
[2022-03-07] VITALS (8 sets, daily range): BP systolic 145–160; BP diastolic 67–74; PULSE 66–72; RESP 12–18; TEMP 36.7–36.9; O2SAT 91–94
[2022-03-07] MEDS: HYDROmorphone 1 mg/mL INJ 1 mL 0.5 MG IVP (00:20)
[2022-03-07 05:13] LABS: Basophils # 0.1 10^3/uL (0.0-0.1); Basophils % 0.6 %; Eosinophils # 0.6 10^3/uL (0.0-0.8); Eosinophils % 6.7 %; Hematocrit 31.7 % (42.0-52.0); Hemoglobin 10.4 g/dL (11.7-16.6); Lymphocytes # 1.1 10^3/uL (0.8-4.8); Lymphocytes % 13.8 %; Mean Corpuscular HGB Conc 32.8 g/dL (30.0-36.0); Mean Corpuscular Hemoglobin 30.5 pg (28.0-34.0); Mean Platelet Volume 9.6 fL (7.4-10.4); Monocytes # 0.8 10^3/uL (0.2-0.9); Monocytes % 9.8 %; Neutrophils # 5.66 10^3/uL (1.8-7.7); Neutrophils % 68.7 %; Nucleated Red Blood Cells % 0 %; Platelet Count 278 10^3/cmm (130-400); Red Blood Count 3.41 10^6/uL (4.1-5.3); Red Cell Distribution Width 14.5 % (12.1-15.1); White Blood Count 8.2 10^3/uL (4.0-10.0)
[2022-03-07 05:38] LABS: Albumin Level 2.7 g/dL (3.5-5.2); Alkaline Phosphatase 83 U/L (40-130); Blood Urea Nitrogen 26 mg/dL (6-20); Calcium 8.5 mg/dL (8.5-10.5); Carbon Dioxide 24 mmol/L (22-29); Chloride 98 mmol/L (98-107); Creatinine Clr Calc Pharmacy 0.0593; Globulin 4.5 g/dL (1.3-4.6); Glucose 75 mg/dL (65-115); Osmolality Calculated 287 mOsm/kg (285-295); Sodium 137 mmol/L (136-145); Total Bilirubin 0.3 mg/dL (0.15-1.2); Total Protein 7.2 g/dL (6.6-8.7)
[2022-03-07 05:39] LABS: Vancomycin Random 31.8 ug/mL (20.0-40.0)
[2022-03-07 05:59] LABS: Alanine Aminotransferase 10 U/L (0-41); Aspartate Amino Transferase 26 U/L (0-40)
[2022-03-07 06:51] LABS: Glucose Point of Care 76 mg/dL (70-110)
--- NOTE | 2022-03-07 08:04 | PM.PN ---
Subjective Subjective: Patient seen at bedside this morning. Patient has status post left foot delayed primary closure from partial fifth ray resection. DOS: 03/07/2022. Patient states overall he is doing well. Pain is well controlled bedside. Denies any overnight events. Denies any constitutional symptoms or other pedal complaints at this time. Vitals/I&O/Wt Last Vital Signs Temp 98.1 F 03/07/22 07:29 Pulse 69 03/07/22 07:29 Resp 17 03/07/22 07:29 BP 155/74 03/07/22 07:29 Pulse Ox 93 03/07/22 07:29 O2 Del Method 03/07/22 07:29 O2 Flow Rate 6 03/06/22 08:02 03/06/22 03/07/22 03/07/22 22:59 06:59 14:59 Intake Total 980 / 1940 240 / 2180 Output Total 275 / 1877 Balance 980 / 338 -35 / 303 Weight last 48 hrs Weight 10.582 oz Weight 260 lb 2.327 oz Physical Exam Narrative: GENERAL: A&O x 3, NAD VASCULAR: DP/PT palpable 1/4 with CFT intact to distal digits and less than 3 seconds DERM: LEFT FOOT: Surgical dressing intact to left lower extremity with no strikethrough noted. Left intact this morning at bedside visit. RIGHT FOOT: Full thickness ulceration to plantar aspect of right 5th MTPJ measuring 4.5 x 2.5 x 0.2cm with 100% granular base. No probe to bone, tracking or undermining, stable. MSK:Left partial 4th ray resection NEURO: Diminished sensation to the level of the midfoot bilaterally 2/2 DPN Data : 03/07/22 04:51 03/07/22 04:51 Micro: Microbiology 03/03/22 08:33 Gram Stain - Final Toe - #1 Anaerobic Culture - Preliminary Wound Culture - Final Methicillin Resis Staph Aureus A&P Assessment and plan (1) Diabetic ulcer of foot associated with type 2 diabetes mellitus, with necrosis of bone: Status: Acute (2) Diabetic foot infection: Status: Acute (3) Pain in left foot: Status: Acute Plan -No further surgical intervention per podiatry at this time. -Patient okay to discharge home from podiatry standpoint -Patient will be discharged on antibiotics which will be managed by Dr. Rehman and will be infused at dialysis -Right foot dressing changes with betadine wet to dry -Strict non-weight bearing to left foot in CAM boot using walker which patient has at home. Discussed that crutches may cause issues with his dialysis port and walker is better alternative. Discussed with patient he verbalized understanding. -Discharge planning: Patient will need to be set up with home health if not already for dressing changes to lower extremities. -Okay to discharge from podiatry standpoint with follow-up next week with Dr. Enciso. 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
[2022-03-07] MEDS: pantoprazole DR 40 mg Tablet PO (08:52)
[2022-03-07] MEDS: minoxidil 10 mg Tablet 2.5 MG PO (08:52)
[2022-03-07] MEDS: carvedilol 12.5 mg Tablet 6.25 MG PO (08:54)
[2022-03-07] MEDS: isosorbide mononitrate ER 30 mg Tablet PO (08:54)
[2022-03-07] MEDS: duloxetine 60 mg Capsule PO (08:54)
[2022-03-07] MEDS: hyDRALAzine 50 mg Tablet 75 MG PO ×2 (08:55→13:07)
[2022-03-07] MEDS: losartan 50 mg Tablet 100 MG PO (08:55)
--- NOTE | 2022-03-07 09:09 | PC.SOCIAL ---
IMM Update pg 2 of IMM updated and reviewed w/ patient. Copy provided and Copy in chart dated and initialed.
--- NOTE | 2022-03-07 10:15 | P.DS_ITS ---
Discharge Providers Date of Admission: 03/02/22 19:27 Date of Discharge: March 07, 2022 Attending Provider at Admission: José Luis Gonzalez MD Attending Provider at Discharge: Maulik Perez MD Consults: Telemetry nephrology Podiatry: Dr. Connelly ID: Dr. Rehman Primary Care Provider: Sandy Kelly MD Diagnoses at Discharge Discharge Diagnosis (1) Diabetic ulcer of foot associated with type 2 diabetes mellitus, with necrosis of bone: Status: Acute (2) Diabetic foot infection: Status: Acute (3) Pain in left foot: Status: Acute Reason for Visit Reason for Visit: sent for admission by Dr. Enciso Hospital Course Hospital Course Kt Jett JR is a 56 year old male h/o CAD, CKD on MHD MWF with a past medical history of complicated MSSA bacteremia in August 2020 at which time he was treated with IV antibiotics.? This was thought to be related to his port, port was removed and he has not had any recurrence of the issue.? Of note patient also had a history of MSSA bacteremia in 2018 where source remain undefined. He is currently admitted at [facility] for worsening bilateral lower extremity wounds.? It appears that patient suffered second-degree kearney to the base of his feet in December for which she had been following with podiatry as outpatient.? His right foot has improved, however on the left foot he had an area over the subfifth metatarsal head that continued to worsen.? Over the last week he started experiencing increased redness and drainage and also had associated fever and chills.? His office director had started him on IV vancomycin with dialysis and also p.o. Levaquin.? He was admitted on May 02, 2022 and has subsequently undergone IND of the left foot with partial fifth ray r esection.? Op findings consistent clinically with osteomyelitis though foot x- ray is negative.? His wound probed all the way to the bone.? Purulence was encountered in the OR.? He is planned to undergo delayed primary closure with possible flap of the left foot on .? OR cultures from 03/03 thus far show Staphylococcus species, awaiting further identification.? Previous wound culture taken in the clinic on 03/01 had shown MRSA. Blood cultures have been negative during this admission. Patient underwent delayed closure of his wound on 03/06. His hospital stay was otherwise unremarkable other than elevated blood pressures for which multiple of his antihypertensives were adjusted. Has been discharged hemodynamically stable condition with home health for wound care dressings as directed by podiatry. He is to take vancomycin 1 g with each dialysis session. He is to follow-up with podiatry and ID as directed. Physical Exam Const: COMMON NORMALS: no acute distress and patient oriented x3 HENMT: COMMON NORMALS: normocephalic HEAD & SCALP: normocephalic Eye: COMMON NORMALS: Equal, round and reactive pupils present and EOMs intact bilaterally PUPIL: Yes Equal, round and reactive pupils present Neck/C-Spine: COMMON NORMALS: no JVD Resp: COMMON NORMALS: normal respiratory effort, No retractions, No use of accessory muscles and clear to auscultation bilaterally AUSCULTATION: clear to auscultation bilaterally Cardio: COMMON NORMALS: no JVD, regular rate, regular rhythm, S1 normal heart sound present and S2 normal heart sound present RATE: regular rate RHYTHM: regular rhythm HEART SOUNDS: S1 normal heart sound present and S2 normal heart sound present GI: COMMON NORMALS: Normal to inspection, nondistended, normoactive bowel sounds present, Soft to palpation, non-tender, No hepatosplenomegaly present, no masses and no bruits PALPATION: Yes Soft to palpation and Yes No hepatosplenomegaly present Extremity: COMMON NORMALS: capillary refill normal, no clubbing, cyanosis or edema, no calf tenderness and no pedal edema NARRATIVE EXTREMITY EXAM: Left foot, surgically dressed. Right foot bandaged. Neuro: COMMON NORMALS: patient oriented x3 Psych: COMMON NORMALS: mental status grossly normal Discharge Data Studies Completed and Pending Completed Studies During Hospitalization Category Date Time Status XR foot LT 2V [id number] Stat Exams 03/02/22 20:06 Completed US arterial duplex lower extremity bilat [CV arterial Ultrasound 03/02/22 20:06 [place] [id number]] Stat Pending at discharge Category Date Time Status Anaerobic Culture Routine Lab 03/03/22 08:33 Results Blood Culture Stat Lab 03/02/22 21:13 Results Wound Culture and Gram Stain Routine Lab 03/03/22 08:33 Results Pathology: Surgical [PTH] Routine Pth 03/03/22 08:54 Received Radiology Impressions Duplex Scan Lower Extremity Artery 03/02/22 20:06 IMPRESSION: No stenosis or occlusion. Foot X-Ray 03/02/22 20:06 IMPRESSION: 1. Soft tissue swelling and ulcer on the lateral aspect of the foot. 2. No evidence for active osteomyelitis. Microbiology 03/03/22 08:33 Toe - #1 Gram Stain - Final 03/03/22 08:33 Toe - #1 Anaerobic Culture - Preliminary 03/03/22 08:33 Toe - #1 Wound Culture - Final Methicillin Resis Staph Aureus 03/02/22 21:13 Blood Blood Culture - Preliminary NEGATIVE TO DATE 03/02/22 16:42 Blood Blood Culture - Preliminary NEGATIVE TO DATE Laboratory Results WBC 8.2 10^3/uL (4.0-10.0) 03/07/22 04:51 RBC 3.41 10^6/uL (4.1-5.3) L 03/07/22 04:51 Hgb 10.4 g/dL (11.7-16.6) L 03/07/22 04:51 Hct 31.7 % (42.0-52.0) L 03/07/22 04:51 MCV 93.0 fl (80-94) 03/07/22 04:51 MCH 30.5 pg (28.0-34.0) 03/07/22 04:51 MCHC 32.8 g/dL (30.0-36.0) 03/07/22 04:51 RDW 14.5 % (12.1-15.1) 03/07/22 04:51 Plt Count 278 10^3/cmm (130-400) 03/07/22 04:51 MPV 9.6 fL (7.4-10.4) 03/07/22 04:51 Neut % (Auto) 68.7 % 03/07/22 04:51 Lymph % (Auto) 13.8 % 03/07/22 04:51 Travis % (Auto) 9.8 % 03/07/22 04:51 Eos % (Auto) 6.7 % 03/07/22 04:51 Baso % (Auto) 0.6 % 03/07/22 04:51 Neut # (Auto) 5.66 10^3/uL (1.8-7.7) 03/07/22 04:51 Lymph # (Auto) 1.1 10^3/uL (0.8-4.8) 03/07/22 04:51 Travis # (Auto) 0.8 10^3/uL (0.2-0.9) 03/07/22 04:51 Eos # (Auto) 0.6 10^3/uL (0.0-0.8) 03/07/22 04:51 Baso # (Auto) 0.1 10^3/uL (0.0-0.1) 03/07/22 04:51 Nucleated RBC % (auto) 0 % 03/07/22 04:51 Nucleated RBCs # 0.0 /100WBC 03/07/22 04:51 ESR 53 mm/hr (0-10) H 03/05/22 02:02 Sodium 137 mmol/L (136-145) 03/07/22 04:51 Potassium 5.0 mmol/L (3.5-5.1) 03/07/22 04:51 Chloride 98 mmol/L (98-107) 03/07/22 04:51 Carbon Dioxide 24 mmol/L (22-29) 03/07/22 04:51 Anion Gap 20.0 (5-19) H 03/07/22 04:51 BUN 26 mg/dL (6-20) H 03/07/22 04:51 Creatinine 5.9 mg/dL (0.7-1.2) H* 03/07/22 04:51 GFR Calculation 10.0 mL/min (90-130) L 03/07/22 04:51 Glucose 75 mg/dL (65-115) 03/07/22 04:51 POC Glucose 76 mg/dL (70-110) 03/07/22 06:40 Estimat Average Glucose 120 03/02/22 16:43 Hemoglobin A1c 5.8 % (4.0-6.0) 03/02/22 16:43 Calculated Osmolality 287 mOsm/kg (285-295) 03/07/22 04:51 Lactate 0.9 mmol/L (0.5-2.2) 03/02/22 16:43 Calcium 8.5 mg/dL (8.5-10.5) 03/07/22 04:51 Phosphorus 4.2 mg/dL (2.5-4.5) 03/05/22 02:02 Magnesium 2.4 mg/dL (1.7-2.3) H 03/05/22 02:02 Iron 35 ug/dL (59-158) L 03/04/22 05:24 TIBC 148 mcg/dl 03/04/22 05:24 % Saturation 23.6 % (20-50) 03/04/22 05:24 Unsat Iron Binding 113 ug/dL (112-347) 03/04/22 05:24 Total Bilirubin 0.3 mg/dL (0.15-1.2) 03/07/22 04:51 AST 26 U/L (0-40) 03/07/22 04:51 ALT 10 U/L (0-41) 03/07/22 04:51 Alkaline Phosphatase 83 U/L (40-130) 03/07/22 04:51 C-Reactive Protein 34.3 mg/L (0.0-4.9) H 03/05/22 02:02 NT-Pro-B Natriuret Pep Cancelled 03/03/22 04:51 Total Protein 7.2 g/dL (6.6-8.7) 03/07/22 04:51 Albumin 2.7 g/dL (3.5-5.2) L 03/07/22 04:51 Globulin 4.5 g/dL (1.3-4.6) 03/07/22 04:51 Triglycerides 109 mg/dL (0-150) 03/05/22 02:02 Cholesterol 114 mg/dL (0-200) 03/05/22 02:02 LDL Cholesterol, Calc 56 mg/dL (50-129) 03/05/22 02:02 Total VLDL Cholesterol 22 mg/dL (0-30) 03/05/22 02:02 HDL Cholesterol 36 mg/dL (60-100) L 03/05/22 02:02 LDL/HDL Ratio Cancelled 03/03/22 04:51 Cholesterol/HDL Ratio 3.17 mg/dL (1.0-5.00) 03/05/22 02:02 Procalcitonin 0.31 ng/mL (0-0.5) 03/04/22 05:24 TSH 3.98 uIU/mL (0.27-4.20) 03/04/22 05:24 Random Vancomycin 31.8 ug/mL (20.0-40.0) 03/07/22 04:51 Vitals Last Vital Signs Temp 98.1 F 08/25/22 07:29 Pulse 69 03/07/22 07:29 Resp 17 03/07/22 07:29 BP 155/74 03/07/22 08:55 Pulse Ox 93 03/07/22 07:29 O2 Del Method 03/07/22 07:29 O2 Flow Rate 6 03/06/22 08:02 Discharge Plan Discharge Patient Disposition: Home Health Service Condition: Stable Prescriptions: New carvedilol 12.5 mg Tablet 6.25 mg PO BID 30 Days Qty: 30 0RF hydralazine 50 mg Tablet 75 mg PO QID 30 Days Qty: 180 0RF amlodipine 5 mg Tablet 10 mg PO BEDTIME Qty: 60 0RF Continued losartan 100 mg tablet 100 mg PO DAILY Qty: 90 3RF (DME) Cam Boot to the Left See Rx Instructions .Route .MEDSUPPLY Qty: 1 0RF Rx Instructions: As directed mupirocin 2 % ointment 1 applic topical BID Qty: 22 0RF isosorbide mononitrate 30 mg tablet extended release 24 hr 30 mg PO DAILY Qty: 90 3RF atorvastatin 20 mg Tablet 20 mg PO QPM hydrocodone-acetaminophen 10-325 mg Tablet 1 - 2 tab PO Q6H PRN (Reason: Pain) pantoprazole 40 mg Tablet,Delayed Release (Dr/Ec) 40 mg PO DAILY nitroglycerin [Nitrostat] 0.4 mg Tablet, Sublingual 0.4 mg SUBLINGUAL Q5M PRN (Reason: chest pain) duloxetine 60 mg Capsule, Delayed Rel Sprinkle 60 mg PO DAILY Tresiba U-100 Insulin 100 unit/mL solution 30 unit SUBCUT DAILY cyclobenzaprine 10 mg Tablet 10 mg PO TID furosemide 40 mg Tablet 40 mg PO DAILY clopidogrel 75 mg Tablet 75 mg PO DAILY minoxidil 2.5 mg Tablet 2.5 mg PO BID Renal Multivitamin Formula 0.8 mg Tablet 1 tab PO DAILY bisacodyl 5 mg Tablet,Delayed Release (Dr/Ec) 5 mg PO DAILY nifedipine 60 mg Tablet Extended Release 60 mg PO DAILY Fosrenol 1,000 mg Tablet,Chewable 1,000 mg PO TID Rx Instructions: administer with food; chew thoroughly before swallowing lactulose 10 gram/15 mL (15 mL) Solution 10 g PO DAILY Discontinued metoprolol tartrate 50 mg tablet 50 mg PO BID hydralazine 50 mg Tablet 50 mg PO QID Discharge Orders: Discharge Order (Routine); Ordered 03/07/22 Ordered By: Maulik Perez Other Ambulatory Orders: DME: [employer] (Order) Location: None Selected Ordered By: Maulik Perez Referrals: [facility] [Outside] Sandy Kelly MD [Primary Care Provider] - 7-10 days Karyn Rehman MD [Hospitalist] - 03/28/22 Eric Enciso DPM [Physician] - 7-10 days [facility] [Provider Group] - 03/28/22 (Dr. Rehman) Discharge Diet: Regular, Cardiac and Diabetic Discharge Activity: Resume usual activity and Increase activity as tolerated Patient Instructions: Opioid Safety Activity Restrictions/Additional Instructions: Strict non-weight bearing to left foot in CAM boot using walker which patient has at home. Discussed that crutches may cause issues with his dialysis port and walker is better alternative.? Discussed with patient he verbalized understanding. Vancomycin with each dialysis. Vanco trough to be checked before the fourth dose prior to dialysis. Please follow-up with podiatry within next 1 week and with ID within next 2 weeks. Dose of hydralazine has been increased to 75 mg daily, amlodipine has been increased to 10 mg daily, metoprolol has been changed to Coreg 6.25 mg twice daily. Discharge Attestations Time Spent in Discharge Care*: greater than 30 min Specific Discharge Activities: educating patient, discussing with pcp/other providers, discussing with shelter case manager/social workers/dc planners, documenting/other paperwork and evaluating patient/reviewing data Status at Discharge: Cognitive status at discharge: cognitively intact , Behavioral status at discharge: cooperative , Functional status at discharge: other assisted ambulation , Overall status at discharge: patient is progressing back to baseline Quality Metrics Clinical Quality Measures [ No reported AMI, CVA or VTE this stay] Coding Level of Care Code Acute [facility] DC note Diagnoses Diabetic ulcer of foot associated with type 2 diabetes mellitus, with necrosis of bone E11.621; L97.504 Diabetic foot infection E11.628; L08.9 Pain in left foot M79.342
[2022-03-07 11:41] LABS: Glucose Point of Care 150 mg/dL (70-110)
[2022-03-07] MEDS: HYDROcodone-acetaminophen 10-325 mg Tablet PO (13:06)
--- NOTE | 2022-03-07 15:26 | P.PN_ITS ---
Subjective Subjective: I am seeing him in follow up for ESRD management. Pt feeling good , no new issues Medications: Reviewed: Yes Vitals/I&O/Wt Last Vital Signs Temp 98.1 F 03/07/22 13:00 Pulse 72 03/07/22 13:00 Resp 18 03/07/22 13:00 BP 145/72 03/07/22 13:00 Pulse Ox 94 03/07/22 13:00 O2 Del Method 03/07/22 11:42 O2 Flow Rate 6 03/06/22 08:02 03/07/22 03/07/22 03/07/22 06:59 14:59 22:59 Intake Total 240 / 2180 480 / 480 Output Total 275 / 1877 Balance -35 / 303 480 / 480 Weight last 48 hrs Weight 300 g Physical Exam Const: COMMON NORMALS: no acute distress and patient oriented x3 GENERAL APPEARANCE: cooperative and comfortable Neuro: COMMON NORMALS: patient oriented x3 Data : 03/07/22 04:51 03/07/22 04:51 Micro: Microbiology 03/03/22 08:33 Gram Stain - Final Toe - #1 Anaerobic Culture - Preliminary Wound Culture - Final Methicillin Resis Staph Aureus A&P Assessment and plan (1) End stage renal disease on dialysis: No acute indication for dialysis today Status: Acute (2) Hypertension: BP under control Status: Acute Qualifiers: Hypertension type: essential hypertension Qualified Code(s): I10 - Essential (primary) hypertension (3) Anemia: Hb within goal Status: Acute Attestations Medical Necessity Statement*: Foot osteo Time Spent in Patient Care: 16 - 35 minutes Coding Level of Care Code Acute [employer] for [facility] Fwd Diagnoses End stage renal disease on dialysis N18.6; Z99.2 Hypertension I10 Hypertension type: essential hypertension Anemia D64.9 Time Spent (min) 17
== END 2022-03-07 14:20 | disposition home health service (06) | DRG 617 ==
LOC: ER 19:27 → MEDSURG 20:00
PROVIDERS: Internal Medicine; Podiatrist Foot & Ankle Surgery; Admitting Provider Family Medicine; Emergency Provider Emergency Medicine; PCP Internal Medicine; Visit Provider Student in an Organized Health Care Education/Training Program
PROC: (CPT 28810; principal; 2022-03-03 07:40)
DX: E11.69 Type 2 diabetes mellitus with other specified complication (principal); E11.52 Type 2 diabetes mellitus with diabetic peripheral angiopathy with gangrene; M86.072 Acute hematogenous osteomyelitis, left ankle and foot; M86.672 Other chronic osteomyelitis, left ankle and foot; I13.2 Hypertensive heart and chronic kidney disease with heart failure and with stage 5 chronic kidney disease, or end stage renal disease; I50.22 Chronic systolic (congestive) heart failure; I96 Gangrene, not elsewhere classified; E11.22 Type 2 diabetes mellitus with diabetic chronic kidney disease; N18.6 End stage renal disease; Z99.2 Dependence on renal dialysis; E11.42 Type 2 diabetes mellitus with diabetic polyneuropathy; Z79.4 Long term (current) use of insulin; D63.1 Anemia in chronic kidney disease; I25.10 Atherosclerotic heart disease of native coronary artery without angina pectoris; Z95.5 Presence of coronary angioplasty implant and graft; I25.5 Ischemic cardiomyopathy; G89.29 Other chronic pain; M54.9 Dorsalgia, unspecified; M79.7 Fibromyalgia; K21.9 Gastro-esophageal reflux disease without esophagitis; T25.222D Burn of second degree of left foot, subsequent encounter; T25.221D Burn of second degree of right foot, subsequent encounter; X08.8XXD Exposure to other specified smoke, fire and flames, subsequent encounter; B95.62 Methicillin resistant Staphylococcus aureus infection as the cause of diseases classified elsewhere; Z79.02 Long term (current) use of antithrombotics/antiplatelets; Z79.891 Long term (current) use of opiate analgesic
CPT/HCPCS: 11043; 12345; 36415; 36416; 73620; 73630; 80053; 80061; 80202; 82962; 83036; 83540; 83550; 83605; 83735; 84100; 84145; 84443; 85025; 85651; 86140; 87040; 87070; 87075; 87077; 87186; 87205; 88305; 88311; 93925; 96365; 96366; 96367; 96372; 96375; 97116; 97162; 97760; 99285; J1170; J1815; J2270; J2405; J2543; J2704; J3010; J3370; J3490; J7030; J7040; J7050; L4361; Q3014

== ENCOUNTER → 2022-03-14 11:25 | Outpatient (BNVA) | payer MEDICARE, MEDICAID, SELFPAY | PROVIDERS: PCP Internal Medicine; Visit Provider Podiatrist Foot & Ankle Surgery | DX: E11.22 Type 2 diabetes mellitus with diabetic chronic kidney disease (principal); N18.6 End stage renal disease; Z99.2 Dependence on renal dialysis; L97.512 Non-pressure chronic ulcer of other part of right foot with fat layer exposed; Z79.4 Long term (current) use of insulin; E11.621 Type 2 diabetes mellitus with foot ulcer | CPT/HCPCS: 99214 ==

== ENCOUNTER → 2022-03-21 13:31 | Outpatient (BNVA) | payer MEDICARE, MEDICAID, SELFPAY | PROVIDERS: PCP Internal Medicine; Visit Provider Podiatrist Foot & Ankle Surgery | DX: E11.22 Type 2 diabetes mellitus with diabetic chronic kidney disease (principal); N18.6 End stage renal disease; Z99.2 Dependence on renal dialysis; L97.512 Non-pressure chronic ulcer of other part of right foot with fat layer exposed; E11.621 Type 2 diabetes mellitus with foot ulcer; Z79.4 Long term (current) use of insulin | CPT/HCPCS: 99213; 99214 ==

== ENCOUNTER → 2022-03-28 13:03 | Outpatient (BNVA) | payer MEDICARE, MEDICAID, SELFPAY | PROVIDERS: PCP Internal Medicine; Visit Provider Student in an Organized Health Care Education/Training Program | DX: E11.621 Type 2 diabetes mellitus with foot ulcer (principal); M86.9 Osteomyelitis, unspecified; L97.504 Non-pressure chronic ulcer of other part of unspecified foot with necrosis of bone; L97.512 Non-pressure chronic ulcer of other part of right foot with fat layer exposed; Z98.890 Other specified postprocedural states; E11.22 Type 2 diabetes mellitus with diabetic chronic kidney disease; N18.6 End stage renal disease; Z99.2 Dependence on renal dialysis; Z79.4 Long term (current) use of insulin | CPT/HCPCS: 99204; 99214 ==

== ENCOUNTER → 2022-04-04 14:59 | Outpatient (BNVA) | payer MEDICARE, MEDICAID, SELFPAY | PROVIDERS: PCP Internal Medicine; Visit Provider Podiatrist Foot & Ankle Surgery | DX: E11.621 Type 2 diabetes mellitus with foot ulcer (principal); Z79.4 Long term (current) use of insulin; E11.22 Type 2 diabetes mellitus with diabetic chronic kidney disease; N18.6 End stage renal disease; Z99.2 Dependence on renal dialysis; L97.512 Non-pressure chronic ulcer of other part of right foot with fat layer exposed; T81.31XA Disruption of external operation (surgical) wound, not elsewhere classified, initial encounter; Z91.19 Patient's noncompliance with other medical treatment and regimen | CPT/HCPCS: 99214; 99215 ==

== ENCOUNTER → 2022-04-11 15:57 | Outpatient (BNVA) | payer MEDICARE, MEDICAID, SELFPAY | PROVIDERS: PCP Internal Medicine; Visit Provider Podiatrist Foot & Ankle Surgery | DX: E11.621 Type 2 diabetes mellitus with foot ulcer (principal); L97.512 Non-pressure chronic ulcer of other part of right foot with fat layer exposed; T81.31XA Disruption of external operation (surgical) wound, not elsewhere classified, initial encounter; E11.22 Type 2 diabetes mellitus with diabetic chronic kidney disease; N18.6 End stage renal disease; Z99.2 Dependence on renal dialysis; Y83.8 Other surgical procedures as the cause of abnormal reaction of the patient, or of later complication, without mention of misadventure at the time of the procedure; Z91.19 Patient's noncompliance with other medical treatment and regimen; Z79.4 Long term (current) use of insulin | CPT/HCPCS: 73630; 99214 ==

== ENCOUNTER → 2022-05-07 14:19 | Outpatient (BNVA) | payer MEDICARE, MEDICAID, SELFPAY | PROVIDERS: PCP Internal Medicine; Visit Provider Podiatrist Foot & Ankle Surgery | DX: E11.621 Type 2 diabetes mellitus with foot ulcer (principal); Z79.4 Long term (current) use of insulin; E11.22 Type 2 diabetes mellitus with diabetic chronic kidney disease; N18.6 End stage renal disease; Z99.2 Dependence on renal dialysis; L97.512 Non-pressure chronic ulcer of other part of right foot with fat layer exposed; T81.31XA Disruption of external operation (surgical) wound, not elsewhere classified, initial encounter; Y79.2 Prosthetic and other implants, materials and accessory orthopedic devices associated with adverse incidents | CPT/HCPCS: 11042 ==

== ENCOUNTER → 2022-05-16 11:09 | Outpatient (BNVA) | payer MEDICARE, MEDICAID, SELFPAY | PROVIDERS: PCP Internal Medicine; Visit Provider Podiatrist Foot & Ankle Surgery | DX: E11.22 Type 2 diabetes mellitus with diabetic chronic kidney disease (principal); N18.6 End stage renal disease; Z99.2 Dependence on renal dialysis; L97.512 Non-pressure chronic ulcer of other part of right foot with fat layer exposed; T81.31XA Disruption of external operation (surgical) wound, not elsewhere classified, initial encounter; E11.621 Type 2 diabetes mellitus with foot ulcer; Y83.8 Other surgical procedures as the cause of abnormal reaction of the patient, or of later complication, without mention of misadventure at the time of the procedure; Z79.4 Long term (current) use of insulin | CPT/HCPCS: 11042 ==

== ENCOUNTER → 2022-05-29 13:56 | Outpatient (BNVA) | payer MEDICARE, MEDICAID, SELFPAY | PROVIDERS: PCP Internal Medicine; Visit Provider Podiatrist Foot & Ankle Surgery | DX: L97.522 Non-pressure chronic ulcer of other part of left foot with fat layer exposed (principal); Y83.8 Other surgical procedures as the cause of abnormal reaction of the patient, or of later complication, without mention of misadventure at the time of the procedure; Z79.4 Long term (current) use of insulin; E11.621 Type 2 diabetes mellitus with foot ulcer; E11.22 Type 2 diabetes mellitus with diabetic chronic kidney disease; N18.6 End stage renal disease; Z99.2 Dependence on renal dialysis; L97.512 Non-pressure chronic ulcer of other part of right foot with fat layer exposed; T81.31XA Disruption of external operation (surgical) wound, not elsewhere classified, initial encounter | CPT/HCPCS: 11042 ==

== ENCOUNTER 2022-06-04 02:29 | Emergency (ER) | payer MEDICARE, MEDICAID, SELFPAY ==
[2022-06-04 02:31] VITALS: BP 196/97; PULSE 91; RESP 22; TEMP 36.7; O2SAT 89; BMI 34.5
--- NOTE | 2022-06-04 02:37 | XRR_ITS ---
PROCEDURE INFORMATION: Exam: XR Chest Exam date and time: 06/04/2022 3:39 AM Age: 57 years old Clinical indication: Shortness of breath; Prior surgery; Surgery type: Cardiac stent; Patient HX: C/O worsening SOB. History of chf. TECHNIQUE: Imaging protocol: Radiologic exam of the chest. Views: 1 view. COMPARISON: CR XR chest 1V portable [id number] 07/09/2021 7:25 AM FINDINGS: Lungs: Mild interval worsening of viag-gz-rknybrvp nonspecific bilateral pulmonary opacities consistent with pulmonary edema versus pneumonia. Pleural spaces: Unremarkable. No pleural effusion. No pneumothorax. Heart/Mediastinum: Mild cardiomegaly. Bones/joints: Dextroscoliosis. XR/XR chest 1V portable [id number] IMPRESSION: 1. Mild cardiomegaly. 2. Mild interval worsening of equa-co-jbqfwkwj nonspecific bilateral pulmonary opacities consistent with pulmonary edema versus pneumonia.
--- NOTE | 2022-06-04 02:37 | ECG_ITS ---
[facility] Test Date: 2022-06-04 Pat Name: Kt Jett Department: Room: Gender: Male Psych Therapist: : 1965 Requested By: Stephanie Camarillo Order Number: [id number] Veronica MD: Ben Navas M.D. Measurements Intervals Greig Rate: 86 P: 79 SD: 205 QRS: 112 QRSD: 140 T: 59 QT: 396 QTc: 476 Interpretive Statements SINUS RHYTHM RIGHT BUNDLE BRANCH BLOCK [120+ ms QRS DURATION, UPRIGHT V1, 40+ ms S IN I/aVL/V4/V5/V6] LEFT POSTERIOR FASCICULAR BLOCK [QRS AXIS > 109, INFERIOR Q] Compared to ECG 07/09/2021 07:37:40 Right bundle-branch block now present Left posterior fascicular block now present First degree AV block no longer present Intraventricular conduction delay no longer present Electronically Signed On 06-04-2022 20:34:42 [employer] WORK[employer] by Ben Navas M.D. [id number]
--- NOTE | 2022-06-04 02:39 | W.ED.SOB ---
HPI - SOB/Dyspnea General: Chief Complaint: Shortness of Breath/Dyspnea Stated Complaint: SOB Time Seen by Provider: 06/04/22 02:34 Source: patient Mode of arrival: ambulatory Limitations: no limitations History of Present Illness: HPI Narrative: 57-year-old male has a history of renal disease is on dialysis he states typically dialysis Friday but had a schedule switch this week due to Thanksgiving states he did receive it Friday supposed to receive it Friday. He states that tonight he woke up and he is having shortness of breath EMS placed him on 3 L oxygen states that he was hypoxic on room air. He is hypertensive as well. He denies any pain has had no cough or fevers. Associated symptoms: Deny abdominal pain, chest pain, fever(s), nausea or vomiting Review of Systems Const: Denies: fever(s), chills, body aches or change in appetite Eyes: Denies: blurry vision or eye discomfort ENMT: Denies: throat pain or dental pain Card: Denies: chest pain Resp: Reports: dyspnea and non-productive cough GI: Denies: abdominal pain, nausea, vomiting or diarrhea : Denies: dysuria Musc: Denies: neck pain or back pain Skin/Breast: Denies: rash Neuro: Denies: headache(s) Psych: Denies: depression Daniel/Lymph: Denies: easy bruising All/Imm: Denies: urticaria PFSH ED PFSH: Medical History Anemia CAD (coronary artery disease) Cardiomyopathy Chronic back pain CKD (chronic kidney disease) Congestive heart failure Diabetes mellitus Diabetes mellitus, type II End stage renal disease on dialysis ESRD (end stage renal disease) Essential hypertension Fibromyalgia GERD (gastroesophageal reflux disease) Hemodialysis access site with arteriovenous graft Hx of staphylococcal infection Hypertension Hypertensive emergency Infection due to Port-A-Cath Lumbar disc disease MSSA bacteremia NSTEMI (non-ST elevated myocardial infarction) Osteoarthritis Surgical History H/O circumcision History of cataract surgery History of coronary artery stent placement S/P carpal tunnel release S/P tonsillectomy Status post insertion of hemodialysis catheter Status post peritoneal dialysis Family History Mother Aneurysm Grandmother Cancer Sister Cancer Social History Smoking and tobacco status: never smoked Alcohol intake: never Lives independently: Yes Household members: none Housing: House Marital status: service: No Current occupational status: disabled History of recent travel: No Physical Exam Const: GENERAL APPEARANCE: ill appearing HENMT: COMMON NORMALS: normocephalic and atraumatic HEAD & SCALP: normocephalic and atraumatic Eye: COMMON NORMALS: Equal, round and reactive pupils present and EOMs intact bilaterally PUPIL: Yes Equal, round and reactive pupils present Neck/C-Spine: COMMON NORMALS: full ROM and supple Chest: COMMONS NORMALS: normal inspection of the chest and normal palpation of entire chest wall Resp: EFFORT & INSPECTION: Yes tachypneic, Yes respiratory distress and Yes labored AUSCULTATION: rales Cardio: COMMON NORMALS: regular rate, regular rhythm and No murmurs present (Cardio) RATE: regular rate RHYTHM: regular rhythm GI: COMMON NORMALS: Normal to inspection, nondistended, normoactive bowel sounds present, Soft to palpation, non-tender and no masses PALPATION: Yes Soft to palpation Extremity: COMMON NORMALS: normal to inspection and full ROM Neuro: COMMON NORMALS: moves all extremities and no focal motor deficits Psych: COMMON NORMALS: mental status grossly normal, Normal thought process present and cooperative THOUGHT PROCESS: Normal thought process present Skin: COMMON NORMALS: no rashes or lesions noted and no wounds GENERAL SKIN EXAM: no rashes or lesions noted Course Vital Signs: Vital signs: Vital Signs Temperature 98.1 F 06/04/22 02:31 Pulse Rate 71 06/04/22 04:39 Respiratory Rate 17 06/04/22 04:39 Blood Pressure 181/82 06/04/22 04:39 Pulse Oximetry 99 06/04/22 04:39 Oxygen Delivery Me thod 06/04/22 04:00 Oxygen Flow Rate 3 06/04/22 04:00 MDM - SOB/Dyspnea Medical Decision Making Patient presents with dyspnea he feels much improved after his blood pressure is improved his troponin here is lower than his baseline x-ray does show some slight pulmonary edema he is scheduled for dialysis this morning. I did offer him admission he states he feels much improved he wants to go home and receive his dialysis as scheduled this morning we will discharge him per his wishes. Lab Data 06/04/22 03:11 06/04/22 03:11 Labs/Radiology: Radiology Impressions Chest X-Ray 06/04/22 02:37 IMPRESSION: 1. Mild cardiomegaly. 2. Mild interval worsening of hssr-zl-wadfnnhl nonspecific bilateral pulmonary opacities consistent with pulmonary edema versus pneumonia. Laboratory Results WBC 9.0 10^3/uL (4.0-10.0) 06/04/22 03:11 RBC 3.94 10^6/uL (4.1-5.3) L 06/04/22 03:11 Hgb 12.1 g/dL (11.7-16.6) 06/04/22 03:11 Hct 38.3 % (42.0-52.0) L 06/04/22 03:11 MCV 97.2 fl (80-94) H 06/04/22 03:11 MCH 30.7 pg (28.0-34.0) 06/04/22 03:11 MCHC 31.6 g/dL (30.0-36.0) 06/04/22 03:11 RDW 13.4 % (12.1-15.1) 06/04/22 03:11 Plt Count 166 10^3/cmm (130-400) 06/04/22 03:11 MPV 10.2 fL (7.4-10.4) 06/04/22 03:11 Neut % (Auto) 75.8 % 06/04/22 03:11 Lymph % (Auto) 11.6 % 06/04/22 03:11 Levy % (Auto) 4.7 % 06/04/22 03:11 Eos % (Auto) 7.0 % 06/04/22 03:11 Baso % (Auto) 0.8 % 06/04/22 03:11 Neut # (Auto) 6.79 10^3/uL (1.8-7.7) 06/04/22 03:11 Lymph # (Auto) 1.0 10^3/uL (0.8-4.8) 06/04/22 03:11 Levy # (Auto) 0.4 10^3/uL (0.2-0.9) 06/04/22 03:11 Eos # (Auto) 0.6 10^3/uL (0.0-0.8) 06/04/22 03:11 Baso # (Auto) 0.1 10^3/uL (0.0-0.1) 06/04/22 03:11 Nucleated RBC % (auto) 0 % 06/04/22 03:11 Nucleated RBCs # 0.0 /100WBC 06/04/22 03:11 PT 12.70 SECONDS (12.1-14.9) 06/04/22 03:11 INR 0.92 (0.8-1.2) 06/04/22 03:11 Sodium 140 mmol/L (136-145) 06/04/22 03:11 Potassium 5.2 mmol/L (3.5-5.1) H 06/04/22 03:11 Chloride 99 mmol/L (98-107) 06/04/22 03:11 Carbon Dioxide 27 mmol/L (22-29) 06/04/22 03:11 Anion Gap 19.2 (5-19) H 06/04/22 03:11 BUN 50 mg/dL (6-20) H 06/04/22 03:11 Creatinine 7.1 mg/dL (0.7-1.2) H* 06/04/22 03:11 GFR Calculation 8.0 mL/min (90-130) L 06/04/22 03:11 Glucose 145 mg/dL (65-115) H 06/04/22 03:11 Calculated Osmolality 306 mOsm/kg (285-295) H 06/04/22 03:11 Calcium 9.4 mg/dL (8.5-10.5) 06/04/22 03:11 Total Bilirubin 0.3 mg/dL (0.15-1.2) 06/04/22 03:11 AST 32 U/L (0-40) 06/04/22 03:11 ALT 23 U/L (0-41) 06/04/22 03:11 Alkaline Phosphatase 137 U/L (40-130) H 06/04/22 03:11 Troponin T Baseline 159 ng/L (0-15) H* 06/04/22 03:11 NT-Pro-B Natriuret Pep 02145 pg/mL (0-125) H 06/04/22 03:11 Total Protein 7.9 g/dL (6.6-8.7) 06/04/22 03:11 Albumin 4.3 g/dL (3.5-5.2) 06/04/22 03:11 Globulin 3.6 g/dL (1.3-4.6) 06/04/22 03:11 EKG Data EKG 1: I personally reviewed and interpreted this EKG as follows: EKG Interpretation Date: 06/04/22 EKG interpretation time: 02:49 Interpretation: nsr hr [address] or t wave abnormalities qrs 140 qtc 440 Discharge Plan Discharge Patient Disposition: Home Clinical Impression: End stage renal disease on dialysis, Hypertension, Dyspnea Condition: Stable Prescriptions: No Action losartan 100 mg tablet 100 mg PO DAILY Qty: 90 3RF (DME) Cam Boot to the Left See Rx Instructions .Route .MEDSUPPLY Qty: 1 0RF Rx Instructions: As directed mupirocin 2 % ointment 1 applic topical BID Qty: 22 0RF isosorbide mononitrate 30 mg tablet extended release 24 hr 30 mg PO DAILY Qty: 90 3RF atorvastatin 20 mg Tablet 20 mg PO QPM hydrocodone-acetaminophen 10-325 mg Tablet 1 - 2 tab PO Q6H PRN (Reason: Pain) pantoprazole 40 mg Tablet,Delayed Release (Dr/Ec) 40 mg PO DAILY nitroglycerin [Nitrostat] 0.4 mg Tablet, Sublingual 0.4 mg SUBLINGUAL Q5M PRN (Reason: chest pain) duloxetine 60 mg Capsule, Delayed Rel Sprinkle 60 mg PO DAILY Tresiba U-100 Insulin 100 unit/mL solution 30 unit SUBCUT DAILY cyclobenzaprine 10 mg Tablet 10 mg PO TID PRN (Reason: Spasms) furosemide 40 mg Tablet 40 mg PO DAILY clopidogrel 75 mg Tablet 75 mg PO DAILY minoxidil 2.5 mg Tablet 2.5 mg PO BID B complex-vitamin C-folic acid 0.8 mg Tablet 1 tab PO DAILY bisacodyl 5 mg Tablet,Delayed Release (Dr/Ec) 5 mg PO DAILY nifedipine 60 mg Tablet Extended Release 60 mg PO DAILY Fosrenol 1,000 mg Tablet,Chewable 1,000 mg PO TID Rx Instructions: administer with food; chew thoroughly before swallowing lactulose 10 gram/15 mL (15 mL) Solution 10 g PO DAILY amlodipine 5 mg Tablet 10 mg PO BEDTIME Qty: 60 0RF Discharge Orders: Discharge ED (Routine); Ordered 06/04/22 Ordered By: Stephanie Camarillo Referrals: Sandy Kelly MD [Primary Care Provider] - 1-3 days Discharge Diet: Advance as tolerated Discharge Activity: Resume usual activity Patient Instructions: Dyspnea (ED) Coding Level of Care Code ED [employer] for [employer] Fwd Exam Comprehensive
[2022-06-04 03:05] VITALS: BP 148/57; PULSE 71; RESP 17; O2SAT 98
[2022-06-04] MEDS: labetalol 5 mg/mL SDV 20mL 10 MG IVP (03:07)
[2022-06-04 03:18] LABS: Basophils # 0.1 10^3/uL (0.0-0.1); Basophils % 0.8 %; Eosinophils # 0.6 10^3/uL (0.0-0.8); Hematocrit 38.3 % (42.0-52.0); Hemoglobin 12.1 g/dL (11.7-16.6); Lymphocytes % 11.6 %; Mean Corpuscular HGB Conc 31.6 g/dL (30.0-36.0); Mean Corpuscular Hemoglobin 30.7 pg (28.0-34.0); Mean Corpuscular Volume 97.2 fl (80-94); Mean Platelet Volume 10.2 fL (7.4-10.4); Monocytes # 0.4 10^3/uL (0.2-0.9); Monocytes % 4.7 %; Neutrophils # 6.79 10^3/uL (1.8-7.7); Neutrophils % 75.8 %; Nucleated Red Blood Cells % 0 %; Platelet Count 166 10^3/cmm (130-400); Red Blood Count 3.94 10^6/uL (4.1-5.3); Red Cell Distribution Width 13.4 % (12.1-15.1)
[2022-06-04 03:30] VITALS: BP 172/75; PULSE 72; RESP 15; O2SAT 97
[2022-06-04 03:33] LABS: INR 0.92 (0.8-1.2)
[2022-06-04 03:45] LABS: Slide Review Slide Review Perform
[2022-06-04 03:46] LABS: Alanine Aminotransferase 23 U/L (0-41); Albumin Level 4.3 g/dL (3.5-5.2); Alkaline Phosphatase 137 U/L (40-130); Aspartate Amino Transferase 32 U/L (0-40); Blood Urea Nitrogen 50 mg/dL (6-20); Calcium 9.4 mg/dL (8.5-10.5); Carbon Dioxide 27 mmol/L (22-29); Chloride 99 mmol/L (98-107); Globulin 3.6 g/dL (1.3-4.6); Glucose 145 mg/dL (65-115); Osmolality Calculated 306 mOsm/kg (285-295); Sodium 140 mmol/L (136-145); Total Bilirubin 0.3 mg/dL (0.15-1.2); Total Protein 7.9 g/dL (6.6-8.7)
[2022-06-04 03:47] LABS: NT Pro B Type Natriuretic Pept 11714 pg/mL (0-125)
[2022-06-04 03:48] LABS: Anion Gap 19.2 (5-19); Potassium 5.2 mmol/L (3.5-5.1)
[2022-06-04 03:49] LABS: Troponin(5th) Baseline 159 ng/L (0-15)
[2022-06-04 04:00] VITALS: BP 181/82; PULSE 71; RESP 17; O2SAT 99
[2022-06-04] MEDS: hyDRALAzine 20 mg/mL INJ 1 mL 10 MG IVP (04:19)
[2022-06-04] MEDS: FUROsemide 10 mg/mL SDV 2mL 20 MG IVP (04:19)
[2022-06-04 04:39] VITALS: BP 181/82; PULSE 71; RESP 17; O2SAT 99
== END 2022-06-04 04:40 | disposition home or self-care (01) ==
PROVIDERS: Emergency Provider Emergency Medicine; PCP Internal Medicine
DX: I13.2 Hypertensive heart and chronic kidney disease with heart failure and with stage 5 chronic kidney disease, or end stage renal disease (principal); E11.22 Type 2 diabetes mellitus with diabetic chronic kidney disease; N18.6 End stage renal disease; I50.9 Heart failure, unspecified; Z99.2 Dependence on renal dialysis; R06.00 Dyspnea, unspecified; Z79.02 Long term (current) use of antithrombotics/antiplatelets; Z79.4 Long term (current) use of insulin; I25.10 Atherosclerotic heart disease of native coronary artery without angina pectoris; I25.2 Old myocardial infarction
CPT/HCPCS: 71045; 80053; 83880; 84484; 85025; 85610; 93005; 96374; 96375; 99285; J0360; J1940; J3490

== ENCOUNTER → 2022-06-19 14:08 | Outpatient (BNVA) | payer MEDICARE, MEDICAID, SELFPAY | PROVIDERS: PCP Internal Medicine; Visit Provider Podiatrist Foot & Ankle Surgery | DX: E11.621 Type 2 diabetes mellitus with foot ulcer (principal); Y83.3 Surgical operation with formation of external stoma as the cause of abnormal reaction of the patient, or of later complication, without mention of misadventure at the time of the procedure; Z79.84 Long term (current) use of oral hypoglycemic drugs; L97.523 Non-pressure chronic ulcer of other part of left foot with necrosis of muscle; E11.22 Type 2 diabetes mellitus with diabetic chronic kidney disease; N18.6 End stage renal disease; Z99.2 Dependence on renal dialysis; T81.31XD Disruption of external operation (surgical) wound, not elsewhere classified, subsequent encounter | CPT/HCPCS: 11043 ==

== ENCOUNTER → 2022-07-03 11:28 | Outpatient (BNVA) | payer MEDICARE, MEDICAID, SELFPAY | PROVIDERS: PCP Internal Medicine; Visit Provider Podiatrist Foot & Ankle Surgery | DX: E11.22 Type 2 diabetes mellitus with diabetic chronic kidney disease (principal); N18.6 End stage renal disease; Z99.2 Dependence on renal dialysis; Z79.4 Long term (current) use of insulin | CPT/HCPCS: 99214 ==

== ENCOUNTER → 2022-07-25 12:00 | Outpatient (BNVA) | payer MEDICARE, MEDICAID, SELFPAY | PROVIDERS: PCP Internal Medicine; Visit Provider Internal Medicine Cardiovascular Disease | DX: I13.2 Hypertensive heart and chronic kidney disease with heart failure and with stage 5 chronic kidney disease, or end stage renal disease (principal); E11.22 Type 2 diabetes mellitus with diabetic chronic kidney disease; N18.6 End stage renal disease; I50.9 Heart failure, unspecified; Z99.2 Dependence on renal dialysis; Z79.4 Long term (current) use of insulin; I25.5 Ischemic cardiomyopathy; Z95.5 Presence of coronary angioplasty implant and graft; I16.1 Hypertensive emergency | CPT/HCPCS: 99214 ==

== ENCOUNTER → 2022-08-14 12:34 | Outpatient (BNVA) | payer MEDICARE, MEDICAID, SELFPAY | PROVIDERS: PCP Internal Medicine; Visit Provider Podiatrist Foot & Ankle Surgery | DX: E11.22 Type 2 diabetes mellitus with diabetic chronic kidney disease (principal); N18.6 End stage renal disease; Z99.2 Dependence on renal dialysis; Z79.4 Long term (current) use of insulin | CPT/HCPCS: 99214 ==

== ENCOUNTER → 2022-10-15 13:09 | Outpatient (BNVA) | payer MEDICARE, MEDICAID, SELFPAY | PROVIDERS: PCP Internal Medicine; Visit Provider Podiatrist Foot & Ankle Surgery | DX: E11.22 Type 2 diabetes mellitus with diabetic chronic kidney disease (principal); N18.6 End stage renal disease; Z99.2 Dependence on renal dialysis; Z79.4 Long term (current) use of insulin | CPT/HCPCS: 99213 ==

== ENCOUNTER → 2022-10-30 12:59 | Outpatient (BNVA) | payer MEDICARE, MEDICAID, SELFPAY | PROVIDERS: PCP Internal Medicine; Visit Provider Podiatrist Foot & Ankle Surgery | DX: E11.22 Type 2 diabetes mellitus with diabetic chronic kidney disease (principal); N18.6 End stage renal disease; Z99.2 Dependence on renal dialysis; E11.621 Type 2 diabetes mellitus with foot ulcer; L97.511 Non-pressure chronic ulcer of other part of right foot limited to breakdown of skin; L97.521 Non-pressure chronic ulcer of other part of left foot limited to breakdown of skin; Z79.4 Long term (current) use of insulin | CPT/HCPCS: 99214 ==

== ENCOUNTER → 2022-11-13 12:46 | Outpatient (BNVA) | payer MEDICARE, MEDICAID, SELFPAY | PROVIDERS: PCP Internal Medicine; Visit Provider Podiatrist Foot & Ankle Surgery | DX: E11.621 Type 2 diabetes mellitus with foot ulcer (principal); L97.511 Non-pressure chronic ulcer of other part of right foot limited to breakdown of skin; L97.521 Non-pressure chronic ulcer of other part of left foot limited to breakdown of skin; E11.22 Type 2 diabetes mellitus with diabetic chronic kidney disease; N18.6 End stage renal disease; Z99.2 Dependence on renal dialysis; Z79.4 Long term (current) use of insulin | CPT/HCPCS: 99213 ==

== ENCOUNTER 2022-12-31 08:27 | Outpatient (CLI) | payer MEDICARE, MEDICAID, SELFPAY ==
--- NOTE | 2022-12-31 08:45 | FL_ITS ---
WS: [id number] EXAMINATION: FL upper GI w air* [id number] REASON FOR EXAM: EPIG DISCOMFORT/?GERD/SPASMS COMPARISON: None available. ORDER DATE: 12/31/2022 9:17 AM Technique: The patient was able to ingest barium contrast. Filming of and detailed evaluation of the esophagus with provocative maneuvers for reflux were obtain ed. The patient was also placed supine and in various recumbent positions during the exam. Findings: There was a normal mucosal fold pattern in the upper esophagus. There is no sign of diverticula, webs , or stricture. There was a mild delay in contrast emptying from the esophagus into the stomach. Dysm otility as a result of tertiary contraction waves delayed esophageal emptying. There was evidence of a sliding hiatal hernia during the upper GI study. With provocative maneuvers, no gastroesophageal re flux was induced. The distal esophageal mucosal pattern is unremarkable. The gastric mucosal fold pattern was normal in appearance. There was a marked delay in gastric emptyi ng requiring 10 or more minutes.. The duodenal bulb and duodenal loop demonstrated normal configurati on and mucosal pattern without evidence of ulceration or edema. FL/FL upper GI w air* [id number] IMPRESSION: Presbyesophagus, mild contrast retention due to delayed emptying. Small sliding-type Hiatal hernia without gastroesophageal reflux. Normal appearing stomach and duodenum. With marked delay in gastric emptying of uncertain cause. FLUOROSCOPY TIME: 3min [id number] # OF SPOT FILMS:
== END 2022-12-31 08:28 | disposition home or self-care (01) ==
PROVIDERS: PCP Internal Medicine; Visit Provider Surgery
DX: E11.621 Type 2 diabetes mellitus with foot ulcer (principal); K44.9 Diaphragmatic hernia without obstruction or gangrene; L97.521 Non-pressure chronic ulcer of other part of left foot limited to breakdown of skin; E11.22 Type 2 diabetes mellitus with diabetic chronic kidney disease; N18.6 End stage renal disease; Z99.2 Dependence on renal dialysis; Z79.4 Long term (current) use of insulin
CPT/HCPCS: 74246; 99214

== ENCOUNTER → 2023-02-12 14:58 | Outpatient (BNVA) | payer MEDICARE, MEDICAID, SELFPAY | PROVIDERS: PCP Internal Medicine; Visit Provider Podiatrist Foot & Ankle Surgery | DX: E11.22 Type 2 diabetes mellitus with diabetic chronic kidney disease (principal); N18.6 End stage renal disease; Z99.2 Dependence on renal dialysis; L97.521 Non-pressure chronic ulcer of other part of left foot limited to breakdown of skin; E11.621 Type 2 diabetes mellitus with foot ulcer; Z79.4 Long term (current) use of insulin | CPT/HCPCS: 99213 ==

== ENCOUNTER 2023-06-01 01:15 | Emergency (ER) | payer MEDICARE, MEDICAID, SELFPAY ==
[2023-06-01] VITALS (10 sets, daily range): BP systolic 199–235; BP diastolic 82–98; PULSE 64–95; RESP 13–20; TEMP 36.7; O2SAT 94–99; BMI 35.2
--- NOTE | 2023-06-01 01:53 | ECG_ITS ---
[facility] Test Date: 2023-06-01 Pat Name: Kt Jett Department: Room: Gender: Male Refueler: : 1965 Requested By: Miguel Lopez Order Number: [id number] Veronica MD: Ben Navas M.D. Measurements Intervals [place] Rate: 64 P: 92 MD: 223 QRS: 72 QRSD: 175 T: 27 QT: 494 QTc: 513 Interpretive Statements SINUS RHYTHM WITH FIRST DEGREE AV BLOCK RIGHT BUNDLE BRANCH BLOCK [120+ ms QRS DURATION, UPRIGHT V1, 40+ ms S IN I/aVL/V4/V5/V6] Compared to ECG 06/04/2022 02:49:26 First degree AV block now present Left posterior fascicular block no longer present Electronically Signed On 06-01-2023 22:04:14 SALES ADVISOR by Ben Navas M.D. [id number]
--- NOTE | 2023-06-01 01:54 | XRR_ITS ---
PROCEDURE INFORMATION: Exam: XR Chest Exam date and time: 06/01/2023 1:55 AM Age: 58 years old Clinical indication: Shortness of breath; Prior surgery; Surgery date: 6+ months; Surgery type: Dialysis cath. Coronary stent; Patient HX: C/O SOB. History of chf. TECHNIQUE: Imaging protocol: Radiologic exam of the chest. Views: 1 view. COMPARISON: CR XR chest 1V portable [id number] 06/04/2022 3:39 AM FINDINGS: Tubes, catheters and devices: There has been interval insertion of a left internal jugular central venous catheter with the tip projecting over the superior vena cava. Lungs: Reticular opacities are noted at each lung base, similar to prior. Pulmonary venous distension noted. Pleural spaces: No pleural effusion. No pneumothorax. Heart/Mediastinum: Stable severe cardiomegaly. Bones/joints: Moderate thoracic dextroscoliosis. XR/XR chest 1V portable [id number] IMPRESSION: 1. Interval insertion of left internal jugular dialysis catheter. No evidence of pneumothorax. 2. Unchanged severe cardiomegaly. There is pulmonary venous distension and interstitial edema suggesting heart failure.
[2023-06-01] MEDS: ipratropium-albuterol 3 mL Neb INHALATION (02:14)
[2023-06-01 02:18] LABS: Basophils # 0.1 10^3/uL (0.0-0.1); Eosinophils # 0.6 10^3/uL (0.0-0.8); Eosinophils % 5.8 %; Hematocrit 31.8 % (37-53); Lymphocytes # 0.7 10^3/uL (0.8-4.8); Lymphocytes % 7.1 %; Mean Corpuscular HGB Conc 32.1 g/dL (30-55); Mean Corpuscular Hemoglobin 31.4 pg (27-33); Mean Corpuscular Volume 97.8 fl (82-101); Mean Platelet Volume 10.6 fL (7.4-10.4); Monocytes # 0.6 10^3/uL (0.2-0.9); Monocytes % 5.5 %; Neutrophils % 80.3 %; Nucleated Red Blood Cells % 0 %; Platelet Count 182 10^3/cmm (157-399); Red Blood Count 3.25 10^6/uL (3.85-5.65); Red Cell Distribution Width 12.9 % (12.1-15.1); White Blood Count 10.46 10^3/uL (3.29-11.43)
[2023-06-01 02:35] LABS: Alanine Aminotransferase 55 U/L (0-41); Albumin Level 4.6 g/dL (3.5-5.2); Alkaline Phosphatase 139 U/L (40-130); Anion Gap 16.1 (5-19); Aspartate Amino Transferase 75 U/L (0-40); Blood Urea Nitrogen 51 mg/dL (6-20); Calcium 9.1 mg/dL (8.5-10.5); Carbon Dioxide 28 mmol/L (22-29); Chloride 98 mmol/L (98-107); Globulin 3.3 g/dL (1.3-4.6); Glomerular Filtration Rate 7.1 mL/min (90-130); Glucose 159 mg/dL (65-115); Magnesium 2.2 mg/dL (1.7-2.3); Osmolality Calculated 303 mOsm/kg (285-295); Potassium 4.1 mmol/L (3.5-5.1); Sodium 138 mmol/L (136-145); Total Bilirubin 0.7 mg/dL (0.15-1.2); Total Protein 7.9 g/dL (6.6-8.7)
[2023-06-01] MEDS: cloNIDine 0.1 mg Tablet PO (04:28)
[2023-06-01] MEDS: isosorbide mononitrate ER 30 mg Tablet PO (04:28)
[2023-06-01] MEDS: amlodipine 10 mg Tablet PO (04:28)
[2023-06-01] MEDS: nitroglycerin 0.4 mg sublingual Tablet SUBLINGUAL (04:30)
[2023-06-01] MEDS: losartan 50 mg Tablet 100 MG PO (06:01)
[2023-06-01] MEDS: metoprolol tartrate 50 mg Tablet PO (06:01)
--- NOTE | 2023-06-01 15:52 | ED_ITS ---
HPI - SOB/Dyspnea General: Chief Complaint: Shortness of Breath/Dyspnea Stated Complaint: SOB Time Seen by Provider: 06/01/23 04:04 History of Present Illness: HPI Narrative: 58 yo male with a history of ESRD. He reports that he has been increasing over the past 2 days or so. No chest discomfort. Some increased lower extremity swelling. He is supposed to go to dialysis later this morning. No fever. No sputum production. Associated symptoms: Reports nausea; Deny abdominal pain, chest pain, fever(s), palpitations or vomiting Review of Systems Const: Denies: fever(s) ENMT: Denies: throat pain Card: Denies: chest pain or palpitations Resp: Reports: dyspnea; Denies: productive cough or non-productive cough GI: Reports: nausea; Denies: abdominal pain or vomiting Skin/Breast: Denies: rash PFSH ED PFSH: Medical History Anemia CAD (coronary artery disease) Cardiomyopathy Chronic back pain CKD (chronic kidney disease) Congestive heart failure Diabetes mellitus Diabetes mellitus, type II End stage renal disease on dialysis ESRD (end stage renal disease) Essential hypertension Fibromyalgia GERD (gastroesophageal reflux disease) Hemodialysis access site with arteriovenous graft Hx of staphylococcal infection Hypertension Hypertensive emergency Infection due to Port-A-Cath Lumbar disc disease MSSA bacteremia NSTEMI (non-ST elevated myocardial infarction) Osteoarthritis Surgical History H/O circumcision History of cataract surgery History of coronary artery stent placement S/P carpal tunnel release S/P tonsillectomy Status post insertion of hemodialysis catheter Status post peritoneal dialysis Family History Mother Aneurysm Grandmother Cancer Sister Cancer Social History Smoking and tobacco/nicotine status: never used tobacco/nicotine Alcohol intake: never Substance/Drug Use: former 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 Clean since 1991 Lives independently: Yes Household members: none Housing: House Marital status: service: No Current occupational status: disabled Physical Exam Const: GENERAL APPEARANCE: cooperative, anxious and ill appearing (mildly); not frail appearing HENMT: COMMON NORMALS: normocephalic, atraumatic and Normal external nose present HEAD & SCALP: normocephalic and atraumatic FACE & SINUS: normal facial exam and face symmetric NOSE: Normal external nose present Eye: COMMON NORMALS: Equal, round and reactive pupils present and EOMs intact bilaterally PUPIL: Yes Equal, round and reactive pupils present Neck/C-Spine: GENERAL: Yes trachea midline Chest: CHEST: Yes Symmetrical chest wall rise Resp: COMMON NORMALS: normal respiratory effort, No retractions, No use of accessory muscles and clear to auscultation bilaterally AUSCULTATION: clear to auscultation bilaterally Cardio: COMMON NORMALS: regular rate and regular rhythm RATE: regular rate RHYTHM: regular rhythm GI: COMMON NORMALS: Normal to inspection, nondistended, normoactive bowel sounds present Extremity: GENERAL: Yes edema Neuro: LIZ COMA SCALE: document GCS findings [place] coma scale eye opening: Spontaneous [place] coma scale verbal response: Orientated Liz coma scale motor response: Obey commands Liz coma scale total score: 15 SENSORY EXAM: Yes extremities (intact) Psych: COMMON NORMALS: speech normal SPEECH: Yes normal speech Skin: COMMON NORMALS: no rashes or lesions noted GENERAL SKIN EXAM: no rashes or lesions noted Course Vital Signs: Vital signs: Vital Signs Temperature 98.1 F 06/01/23 01:16 Pulse Rate 95 06/01/23 06:07 Respiratory Rate 20 H 06/01/23 06:07 Blood Pressure 235/94 06/01/23 06:07 Pulse Oximetry 95 06/01/23 06:07 Oxygen Delivery Me thod Room Air 06/01/23 04:31 Oxygen Flow Rate 3 06/01/23 03:35 MDM - SOB/Dyspnea Medical Decision Making 58 year old male with end stage renal disease. He's improved now after oxygen, and some blood pressure control. his blood pressure has been significantly di fficult to control in the ER, especially since we were not able to gain IV access on this patient. He's had oral medications. His blood pressure is starting to improve. He is due for dialysis in a couple of hours this morning. And he was told that if admitted, I could not get him dialysis any sooner than that even as an inpatient. His chest X-ray shows some pulmonary venous distension indicative of pulmonary edema from hypertension and fluid overload. His electrolytes are essentially normal. Since dialysis is his best option for treatment, he'll be discharged to the dialysis center as an outpatient. He has given his morning blood pressure medication here as it is about time for them to be taken. He noticed to return following dialysis if he is still having symptoms. Lab Data 06/01/23 01:55 06/01/23 01:55 Labs/Radiology: Radiology Impressions Chest X-Ray 06/01/23 01:54 IMPRESSION: 1. Interval insertion of left internal jugular dialysis catheter. No evidence of pneumothorax. 2. Unchanged severe cardiomegaly. There is pulmonary venous distension and interstitial edema suggesting heart failure. Laboratory Results WBC 10.46 10^3/uL (3.29-11.43) 06/01/23 01:55 RBC 3.25 10^6/uL (3.85-5.65) L 06/01/23 01:55 Hgb 10.20 g/dL (11.27-16.99) L 06/01/23 01:55 Hct 31.8 % (37-53) L 06/01/23 01:55 MCV 97.8 fl (82-101) 06/01/23 01:55 MCH 31.4 pg (27-33) 06/01/23 01:55 MCHC 32.1 g/dL (30-55) 06/01/23 01:55 RDW 12.9 % (12.1-15.1) 06/01/23 01:55 Plt Count 182 10^3/cmm (157-399) 06/01/23 01:55 MPV 10.6 fL (7.4-10.4) H 06/01/23 01:55 Neut % (Auto) 80.3 % 06/01/23 01:55 Lymph % (Auto) 7.1 % 06/01/23 01:55 [place] % (Auto) 5.5 % 06/01/23 01:55 Eos % (Auto) 5.8 % 06/01/23 01:55 Baso % (Auto) 1.0 % 06/01/23 01:55 Neut # (Auto) 8.40 10^3/uL (1.8-7.7) H 06/01/23 01:55 Lymph # (Auto) 0.7 10^3/uL (0.8-4.8) L 06/01/23 01:55 [place] # (Auto) 0.6 10^3/uL (0.2-0.9) 06/01/23 01:55 Eos # (Auto) 0.6 10^3/uL (0.0-0.8) 06/01/23 01:55 Baso # (Auto) 0.1 10^3/uL (0.0-0.1) 06/01/23 01:55 Nucleated RBC % (auto) 0 % 06/01/23 01:55 Nucleated RBCs # 0.0 /100WBC 06/01/23 01:55 Sodium 138 mmol/L (136-145) 06/01/23 01:55 Potassium 4.1 mmol/L (3.5-5.1) 06/01/23 01:55 Chloride 98 mmol/L (98-107) 06/01/23 01:55 Carbon Dioxide 28 mmol/L (22-29) 06/01/23 01:55 Anion Gap 16.1 (5-19) 06/01/23 01:55 BUN 51 mg/dL (6-20) H 06/01/23 01:55 Creatinine 7.9 mg/dL (0.7-1.2) H* 06/01/23 01:55 GFR Calculation 7.1 mL/min (90-130) L 06/01/23 01:55 Glucose 159 mg/dL (65-115) H 06/01/23 01:55 Calculated Osmolality 303 mOsm/kg (285-295) H 06/01/23 01:55 Calcium 9.1 mg/dL (8.5-10.5) 06/01/23 01:55 Magnesium 2.2 mg/dL (1.7-2.3) 06/01/23 01:55 Total Bilirubin 0.7 mg/dL (0.15-1.2) 06/01/23 01:55 AST 75 U/L (0-40) H 06/01/23 01:55 ALT 55 U/L (0-41) H 06/01/23 01:55 Alkaline Phosphatase 139 U/L (40-130) H 06/01/23 01:55 Total Protein 7.9 g/dL (6.6-8.7) 06/01/23 01:55 Albumin 4.6 g/dL (3.5-5.2) 06/01/23 01:55 Globulin 3.3 g/dL (1.3-4.6) 06/01/23 01:55 All radiology interpretation(s) finalized by discharge Discharge Plan Discharge Patient Disposition: Home Clinical Impression: Pulmonary edema, Hypertensive urgency Condition: Stable Prescriptions: No Action losartan 100 mg tablet 100 mg PO DAILY Qty: 90 3RF amlodipine 5 mg tablet 5 mg PO BEDTIME metoprolol tartrate 50 mg tablet 50 mg PO BID (DME) Diabetic shoes with Accomadative Insoles See Rx Instructions .Route .MEDSUPPLY Qty: 1 0RF Rx Instructions: As directed by HOME mupirocin 2 % ointment 1 applic topical BID 14 Days Qty: 22 2RF isosorbide mononitrate 30 mg tablet extended release 24 hr 30 mg PO DAILY Qty: 90 3RF (DME) Discontinue Dressing Changes See Rx Instructions .Route .MEDSUPPLY Qty: 1 0RF Rx Instructions: Please discontinue dressing changes as patient is healed. Thank you atorvastatin 20 mg Tablet 20 mg PO QPM hydrocodone-acetaminophen 10-325 mg Tablet 1 - 2 tab PO Q6H PRN (Reason: Pain) pantoprazole 40 mg Tablet,Delayed Release (Dr/Ec) 40 mg PO DAILY nitroglycerin [Nitrostat] 0.4 mg Tablet, Sublingual 0.4 mg SUBLINGUAL Q5M PRN (Reason: chest pain) duloxetine 60 mg Capsule, Delayed Rel Sprinkle 60 mg PO DAILY Tresiba U-100 Insulin 100 unit/mL solution 30 unit SUBCUT DAILY cyclobenzaprine 10 mg Tablet 10 mg PO TID PRN (Reason: Spasms) furosemide 40 mg Tablet 40 mg PO DAILY B complex-vitamin C-folic acid 0.8 mg Tablet 1 tab PO DAILY Fosrenol 1,000 mg Tablet,Chewable 1,000 mg PO TID Rx Instructions: administer with food; chew thoroughly before swallowing minoxidil 2.5 mg tablet 2.5 mg PO DIRECTED Rx Instructions: 2 tabs at night 3 tabs in AM Discharge Orders: Discharge ED (Routine); Ordered 06/01/23 Ordered By: Miguel Espinal Referrals: Sandy Kelly MD [Primary Care Provider] - 1-3 days Patient Instructions: Pulmonary Edema (ED), Hypertensive Crisis (ED), Opioid Safety, Pain Management Activity Restrictions/Additional Instructions: Attend dialysis as scheduled this morning. Let them know you were seen here with pulmonary edema. Return for worsening shortness of breath, pain, etc. despite dialysis. Take your blood pressure medications as prescribed. Coding Level of Care Code ED Fluoroscope Operator for Thomas Keen
== END 2023-06-01 06:04 | disposition home or self-care (01) ==
PROVIDERS: Emergency Provider Emergency Medicine; PCP Internal Medicine
DX: J81.1 Chronic pulmonary edema (principal); I16.0 Hypertensive urgency; Z79.4 Long term (current) use of insulin; I25.10 Atherosclerotic heart disease of native coronary artery without angina pectoris; E11.22 Type 2 diabetes mellitus with diabetic chronic kidney disease; I13.2 Hypertensive heart and chronic kidney disease with heart failure and with stage 5 chronic kidney disease, or end stage renal disease; N18.6 End stage renal disease; I50.9 Heart failure, unspecified; Z99.2 Dependence on renal dialysis; I25.2 Old myocardial infarction
CPT/HCPCS: 71045; 80053; 83735; 85025; 93005; 94640; 99285

== ENCOUNTER 2023-07-11 12:46 | Emergency (ER) | payer MEDICARE, MEDICAID, SELFPAY ==
[2023-07-11 13:01] VITALS: BP 229/87; PULSE 86; RESP 16; O2SAT 90
[2023-07-11 13:07] VITALS: BP 229/87; PULSE 90; RESP 16; O2SAT 93
--- NOTE | 2023-07-11 13:10 | W.ED.WOUNDLC ---
HPI - Wound/Laceration General: Chief Complaint: Wound/Laceration Stated Complaint: rt arm fistula bleeding Time Seen by Provider: 07/11/23 12:55 History of Present Illness: Presents to the ER from dialysis where they could not get his fistula stop bleeding. Clamp was applied for an hour and when the clamp was removed he started bleeding again. Patient had multiple problems with this site. In ER when the clamp was removed bleeding started again almost instantaneously. Clamp was replaced bleeding was controlled. Patient is not male take his blood pressure medicine for the last couple days due to nausea and vomiting and patient's blood pressure upon arrival was 229/87. [facility] ED PFSH: Medical History Essential hypertension MSSA bacteremia Infection due to Port-A-Cath Anemia NSTEMI (non-ST elevated myocardial infarction) Hemodialysis access site with arteriovenous graft CAD (coronary artery disease) Hx of staphylococcal infection Chronic back pain Osteoarthritis Fibromyalgia GERD (gastroesophageal reflux disease) CKD (chronic kidney disease) Lumbar disc disease End stage renal disease on dialysis Diabetes mellitus Hypertensive emergency Congestive heart failure ESRD (end stage renal disease) Diabetes mellitus, type II Hypertension Cardiomyopathy Surgical History Status post insertion of hemodialysis catheter Status post peritoneal dialysis History of coronary artery stent placement S/P tonsillectomy S/P carpal tunnel release H/O circumcision History of cataract surgery Family History Mother Aneurysm Grandmother Cancer Sister Cancer Social History Smoking and tobacco/nicotine status: never used tobacco/nicotine Alcohol intake: never Substance/Drug Use: former 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 Clean since 1991 Lives independently: Yes Household members: none Housing: House Marital status: service: No Current occupational status: disabled Physical Exam Neck/C-Spine: COMMON NORMALS: no JVD Chest: COMMONS NORMALS: normal inspection of the chest and normal palpation of entire chest wall Resp: COMMON NORMALS: normal respiratory effort, No retractions, No use of accessory muscles and clear to auscultation bilaterally AUSCULTATION: clear to auscultation bilaterally Cardio: COMMON NORMALS: no JVD, regular rate, regular rhythm, S1 normal heart sound present, S2 normal heart sound present, No gallops present (Cardio), No clicks present (Cardio), No murmurs present (Cardio) and No rub (Cardio) RATE: regular rate RHYTHM: regular rhythm HEART SOUNDS: S1 normal heart sound present and S2 normal heart sound present GI: COMMON NORMALS: Normal to inspection, nondistended, normoactive bowel sounds present, Soft to palpation, non-tender, No hepatosplenomegaly present and no masses PALPATION: Yes Soft to palpation and Yes No hepatosplenomegaly present Extremity: NARRATIVE EXTREMITY EXAM: Dialysis fistula in upper right arm anterior bicipital region. Bandage covering fistula with clamp in place. Bleeding is controlled at this time however when clamp is removed it starts bleeding again immediately. Course Vital Signs: Vital signs: Vital Signs Pulse Rate 88 07/11/23 14:07 Respiratory Rate 15 07/11/23 14:07 Blood Pressure 201/99 07/11/23 14:07 Pulse Oximetry 80 L 07/11/23 14:07 Oxygen Delivery Me thod Room Air 07/11/23 14:07 MDM - Wound/Laceration Medical Decision Making Dr. Bo was consulted and came down to check out the wound by time he got down here the wound had almost stopped bleeding and he was able to pull up with Dermabond over the top of it. Patient was given clonidine Zofran and hydralazine orally and his blood pressure came down some. After this patient decided he did not want anything else done and was ready to go home and he will be discharged. Medical Records I reviewed the patient's medical records. Lab Data I reviewed the patient's lab results. All radiology interpretation(s) finalized by discharge Discharge Plan Discharge Patient Disposition: Home Clinical Impression: Hypertension, uncontrolled Hemorrhage of arteriovenous fistula Qualifiers: Encounter type: initial encounter Qualified Code(s): T82.838A - Hemorrhage due to vascular prosthetic devices, implants and grafts, initial encounter Condition: Stable Prescriptions: New ondansetron HCl 4 mg tablet 4 mg PO Q6H PRN (Reason: nausea and vomiting) Qty: 30 0RF No Action metoprolol tartrate 50 mg tablet 50 mg PO BID (DME) Diabetic shoes with Accomadative Insoles See Rx Instructions .Route .MEDSUPPLY Qty: 1 0RF Rx Instructions: As directed by HOME isosorbide mononitrate 30 mg tablet extended release 24 hr 30 mg PO DAILY Qty: 90 3RF (DME) Discontinue Dressing Changes See Rx Instructions .Route .MEDSUPPLY Qty: 1 0RF Rx Instructions: Please discontinue dressing changes as patient is healed. Thank you atorvastatin 20 mg Tablet 20 mg PO QPM pantoprazole 40 mg Tablet,Delayed Release (Dr/Ec) 40 mg PO DAILY nitroglycerin [Nitrostat] 0.4 mg Tablet, Sublingual 0.4 mg SUBLINGUAL Q5M PRN (Reason: chest pain) duloxetine 60 mg Capsule, Delayed Rel Sprinkle 60 mg PO DAILY Tresiba U-100 Insulin 100 unit/mL solution 30 unit SUBCUT DAILY B complex-vitamin C-folic acid 0.8 mg Tablet 1 tab PO DAILY minoxidil 2.5 mg tablet 2.5 mg PO DIRECTED Rx Instructions: 2 tabs at night 3 tabs in AM amlodipine 10 mg tablet 10 mg PO BEDTIME lanthanum 750 mg tablet,chewable 2,250 mg PO TID RenaPlex-D 800 mcg-12.5 mg -2,000 unit tablet 1 tab PO DAILY losartan 100 mg tablet 50 mg PO DAILY hydrocodone-acetaminophen 5-325 mg tablet 1 - 2 tab PO Q6H Rx Instructions: MAX 6 PER DAY Discharge Orders: Discharge ED (Routine); Ordered 07/11/23 Ordered By: Get Laguna Referrals: Sandy Kelly MD [Primary Care Provider] - 1 week Patient Instructions: AV Fistula Care, Chronic Hypertension (DC) Activity Restrictions/Additional Instructions: Please try to take all medicine as directed. If your fistula starts bleeding again please return to the ER for further evaluation and care. Otherwise follow-up with your family practice physician and dialysis as previously scheduled Coding Level of Care Code ED Coordinator Cardiopulmonary Services for Thomas Keen
[2023-07-11 13:16] VITALS: BP 229/87
[2023-07-11] MEDS: cloNIDine 0.1 mg Tablet 0.2 MG PO (13:16)
[2023-07-11] MEDS: ondansetron 4 MG Tablet PO (13:16)
[2023-07-11 14:07] VITALS: BP 201/99; PULSE 88; RESP 15; O2SAT 80
[2023-07-11] MEDS: HYDROcodone-acetaminophen 10-325 mg Tablet 1 TAB PO (14:13)
[2023-07-11] MEDS: hyDRALAzine 25 mg Tablet 50 MG PO (14:14)
--- NOTE | 2023-07-11 14:38 | P.CONIM_ITS ---
Providers/Reason For Consult Consulting Physician/Specialty*: General surgery Reason for Consult*: bleeding AV fistula Primary Care Provider: Sandy Kelly MD History of Present Illness History of Present Illness Kt Jett is a 58 year old male with a complex medical history including end- stage renal disease, he has had multiple vascular access, in March of this year he underwent a revision of a right sided AV fistula. Since then he has been having dialysis regularly but today after dialysis he was persistently bleeding from the needle insertion site and therefore he was sent to the ED. In the ED he was noted to have a elevated blood pressure up to 230/100 and persistent bleeding from the fistula was noted, a vascular clamp was placed. I was consulted for this finding.Of note patient also complains of flulike symptoms. Review of Systems General: Reports: 10 or more systems reviewed and unremarkable except in HPI and below Medications/Allergies Home Medications Medication Instructions Recorded Confirmed Last Taken Type atorvastatin 20 mg tablet 20 mg PO QPM 07/13/19 07/11/23 07/09/23 History duloxetine 60 mg capsule,delayed 60 mg PO DAILY 07/13/19 07/11/23 07/09/23 History release sprinkle nitroglycerin 0.4 mg sublingual 0.4 mg sublingual Q5M PRN chest 07/13/19 07/11/23 Unknown History tablet (Nitrostat) pain pantoprazole 40 mg tablet,delayed 40 mg PO DAILY 07/13/19 07/11/23 07/09/23 History release insulin degludec 100 unit/mL 30 unit SUBCUT DAILY 03/28/20 07/11/23 07/09/23 History subcutaneous solution (Tresiba U-100 Insulin) isosorbide mononitrate 30 mg 30 mg PO DAILY #90 tabs 05/21/21 07/11/23 07/09/23 Rx tablet,extended release 24 hr vitamin B complex-vitamin C-folic 1 tab PO DAILY 03/03/22 07/11/23 07/09/23 History acid 0.8 mg tablet Discontinue Dressing Changes #1 ea 07/16/22 07/11/23 Unknown Rx metoprolol tartrate 50 mg tablet 50 mg PO BID 07/25/22 07/11/23 07/09/23 History minoxidil 2.5 mg tablet 2.5 mg PO DIRECTED 01/07/0507/11/23 07/09/23 History Diabetic shoes with Accomadative #1 ea 08/14/22 07/11/23 Unknown Rx Insoles amlodipine 10 mg tablet 10 mg PO BEDTIME 07/11/23 07/11/23 07/10/23 History hydrocodone 5 mg-acetaminophen 325 1 - 2 tab PO Q6H PAIN 07/11/23 07/11/23 07/09/23 History mg tablet lanthanum 750 mg chewable tablet 2,250 mg PO TID 07/11/23 07/11/23 07/09/23 History losartan 100 mg tablet 50 mg PO DAILY 07/11/23 07/11/23 07/09/23 History ondansetron HCl 4 mg tablet 4 mg PO Q6H PRN nausea and 07/11/23 Unknown Rx vomiting #30 tabs vit B,C-folic ac 800 mcg-zinc 12.5 1 tab PO DAILY 07/11/23 07/11/23 07/09/23 History mg-selen-D3 2,000 unit-vit E tablet (RenaPlex-D) Allergies Allergy/AdvReac Type Severity Reaction Status Date / Time No Known Allergies Allergy Verified 02/12/23 15:01 PFSH Acute PFSH: Medical History Essential hypertension MSSA bacteremia Infection due to Port-A-Cath Anemia NSTEMI (non-ST elevated myocardial infarction) Hemodialysis access site with arteriovenous graft CAD (coronary artery disease) Hx of staphylococcal infection Chronic back pain Osteoarthritis Fibromyalgia GERD (gastroesophageal reflux disease) CKD (chronic kidney disease) Lumbar disc disease End stage renal disease on dialysis Diabetes mellitus Hypertensive emergency Congestive heart failure ESRD (end stage renal disease) Diabetes mellitus, type II Hypertension Cardiomyopathy Surgical History Status post insertion of hemodialysis catheter Status post peritoneal dialysis History of coronary artery stent placement S/P tonsillectomy S/P carpal tunnel release H/O circumcision History of cataract surgery Family History Mother Aneurysm Grandmother Cancer Sister Cancer Social History Smoking and tobacco/nicotine status: never used tobacco/nicotine Alcohol intake: never Substance/Drug Use: former 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 Clean since 1991 Lives independently: Yes Household members: none Housing: House Marital status: service: No Current occupational status: disabled Vitals/I&O/Wt Last Vital Signs Pulse 88 07/11/23 14:07 Resp 15 07/11/23 14:07 BP 201/99 07/11/23 14:07 Pulse Ox 80 L 07/11/23 14:07 O2 Del Method Room Air 07/11/23 14:07 Weight last 48 hrs Weight 260 lb Physical Exam Extremity: NARRATIVE EXTREMITY EXAM: On the right upper extremity there is an AV fistula, at the moment of my evaluation the clamp was in place, I remove the clamp and the outer dressing, no active bleeding was noted at this moment there was evidence of previous bleeding from the needle insertion site. I placed Dermabond over the sides and monitor the fistula for about 5 to 10 minutes to ensure no further bleeding, there is a good thrill in the fistula. No ulcerations, no evidence of aneurysm or other complications that would require immediate intervention. A&P Assessment and plan (1) Hemorrhage of arteriovenous fistula: Fistula was evaluated at the bedside. Bleeding was noted to come from needle insertion sites, this is likely due to a combination of heparin administered during dialysis and extremely elevated blood pressure. After hide life of the parent has passed and the blood pressure is under control the bleeding has spontaneously stopped. I placed Dermabond over the bleeding sites wrapped the fistula with a slightly compressive dressing. Good thrill was noted on the fistula on my evaluation, I Splane to the patient that no anatomical problems were noted on his fistula but he will require to follow-up with the vascular surgeon as outpatient for a possible fistula ultrasound and may be a fistulogram to ensure adequate functioning. In the meantime that there is no contraindication to access to fix stool again but patient needs to have a blood pressure under control. Qualifiers: Encounter type: initial encounter Qualified Code(s): T82.838A - Hemorrhage due to vascular prosthetic devices, implants and grafts, initial encounter Coding Level of Care Code 31304 Diagnoses Hemorrhage of arteriovenous fistula T82.838A Encounter type: initial encounter
[2023-07-11 14:56] VITALS: BP 180/86; PULSE 88; RESP 15; O2SAT 90
[2023-07-11 15:21] LABS: Influenza A by IFA negative (Negative); Influenza B by IFA negative (Negative)
[2023-07-11 15:22] LABS: SARS Covid-2 Antigen negative (Negative)
--- NOTE | 2023-07-11 17:31 | PC.NURSE ---
RN attempted to contact Malini on contact information twice regarding lab results. Pt requested this contact be called regarding lab results. No answer from contact at this time.
--- NOTE | 2023-07-11 18:41 | PC.NURSE ---
RN called Malini on contact list and informed her verbally of lab results. Malini verbalized understanding.
== END 2023-07-11 14:58 | disposition home or self-care (01) ==
PROVIDERS: Emergency Provider Emergency Medicine; PCP Internal Medicine
DX: T82.838A Hemorrhage due to vascular prosthetic devices, implants and grafts, initial encounter (principal); Z79.4 Long term (current) use of insulin; I25.2 Old myocardial infarction; I25.10 Atherosclerotic heart disease of native coronary artery without angina pectoris; E11.22 Type 2 diabetes mellitus with diabetic chronic kidney disease; I13.2 Hypertensive heart and chronic kidney disease with heart failure and with stage 5 chronic kidney disease, or end stage renal disease; I50.9 Heart failure, unspecified; N18.6 End stage renal disease; Z99.2 Dependence on renal dialysis; I43 Cardiomyopathy in diseases classified elsewhere; Y71.1 Therapeutic (nonsurgical) and rehabilitative cardiovascular devices associated with adverse incidents
CPT/HCPCS: 87426; 87804; 99284; Q0162

== ENCOUNTER 2023-12-15 02:11 | Emergency (ER) | payer MEDICARE, MEDICAID, SELFPAY ==
[2023-12-15 02:12] VITALS: BP 220/95; PULSE 74; RESP 18; TEMP 36.6; O2SAT 93; BMI 35.2
[2023-12-15 02:54] LABS: Basophils # 0.1 10^3/uL (0.0-0.1); Basophils % 0.9 %; Eosinophils # 0.2 10^3/uL (0.0-0.8); Lymphocytes # 0.6 10^3/uL (0.8-4.8); Lymphocytes % 7.2 %; Mean Corpuscular HGB Conc 32.8 g/dL (30-55); Mean Corpuscular Hemoglobin 30.6 pg (27-33); Mean Corpuscular Volume 93.3 fl (82-101); Mean Platelet Volume 10.5 fL (7.4-10.4); Monocytes # 0.5 10^3/uL (0.2-0.9); Monocytes % 6.8 %; Neutrophils # 6.52 10^3/uL (1.8-7.7); Neutrophils % 81.7 %; Nucleated Red Blood Cells % 0 %; Platelet Count 125 10^3/cmm (157-399); Red Blood Count 3.86 10^6/uL (3.85-5.65); White Blood Count 7.97 10^3/uL (3.29-11.43)
[2023-12-15 03:14] LABS: Alanine Aminotransferase 22 U/L (0-41); Albumin Level 4.1 g/dL (3.5-5.2); Alkaline Phosphatase 135 U/L (40-130); Anion Gap 22.1 (5-19); Aspartate Amino Transferase 31 U/L (0-40); Blood Urea Nitrogen 55 mg/dL (6-20); Calcium 8.9 mg/dL (8.5-10.5); Carbon Dioxide 24 mmol/L (22-29); Chloride 98 mmol/L (98-107); Globulin 3.7 g/dL (1.3-4.6); Glomerular Filtration Rate 6.4 mL/min (90-130); Glucose 148 mg/dL (65-115); Magnesium 2.3 mg/dL (1.7-2.3); Osmolality Calculated 306 mOsm/kg (285-295); Phosphorus 6.1 mg/dL (2.5-4.5); Potassium 5.1 mmol/L (3.5-5.1); Sodium 139 mmol/L (136-145); Total Bilirubin 0.7 mg/dL (0.15-1.2); Total Protein 7.8 g/dL (6.6-8.7)
[2023-12-15 03:18] VITALS: PULSE 70; RESP 16; O2SAT 98
[2023-12-15 03:30] VITALS: PULSE 79; RESP 16; O2SAT 97
--- NOTE | 2023-12-15 03:42 | CTR_ITS ---
PROCEDURE INFORMATION: Exam: CT Abdomen And Pelvis Without Contrast Exam date and time: 12/15/2023 3:49 AM Age: 58 years old Clinical indication: Abdominal pain; Patient HX: C/O left flank/llq pain. History of gastric exophytic mass and esrd. ; Additional info: L abd and flank pain TECHNIQUE: Imaging protocol: Computed tomography of the abdomen and pelvis without contrast. Radiation optimization: All CT scans at this facility use at least one of these dose optimization techniques: automated exposure control; mA and/or kV adjustment per patient size (includes targeted exams where dose is matched to clinical indication); or iterative reconstruction. COMPARISON: CT abdomen pelvis wo con [id number] 10/05/2019 2:14 PM RADIATION DOSE METRICS: Total DLP (mGy-cm): 1068.63 FINDINGS: Liver: Unremarkable Gallbladder and bile ducts: Distended gallbladder with wall thickening. There is suggestion of intrahepatic ductal dilation. Common bile duct is not well visualized on this exam. Pancreas: No ductal dilation. Spleen: No splenomegaly. Adrenal glands: Normal. No mass. Kidneys and ureters: Too small to characterize left renal cortical hypodensities. 2.8 cm cystic structure in the upper pole of the right kidney measuring 2 Hounsfield units. Stomach and bowel: Exophytic masslike structure along the greater curvature of the proximal stomach measuring 5 x 3.8 cm, increased in size compared to prior study measuring 3.7 x 3.1 cm. Associated malignancy not excluded. No dilated bowel loops. No high-grade obstruction. Oral contrast noted within the colon. Appendix: The appendix is not identified. There are no focal inflammatory changes in the right lower quadrant. Intraperitoneal space: No free air. No significant fluid collection. Vasculature: Atherosclerotic changes of the aorta. No aortic aneurysm. Lymph nodes: No enlarged lymph nodes. Urinary bladder: Unremarkable as visualized. Reproductive: Unremarkable as visualized. Bones/joints: Degenerative changes of the lumbar spine. Soft tissues: Fat containing inguinal hernias. CT/CT kidney stone [id number] IMPRESSION: 1. Distended gallbladder with wall thickening. There is suggestion of intrahepatic ductal dilation. Common bile duct is not well visualized on this exam. Correlation with right upper quadrant ultrasound may be helpful. 2. Exophytic masslike structure along the greater curvature of the proximal stomach measuring 5 x 3.8 cm, increased in size compared to prior study (prior measurement 3.7 x 3.1 cm from 2019). Associated malignancy not excluded. COMMENTS: Consistent with the [employer]'s Incidental Findings Committee white paper (J Am Beata Radiol 2018): Any incidental renal lesion less than 1 cm or classified as too small to characterize, or any incidental cystic renal lesion characterized as simple-appearing, is likely benign. No follow-up imaging is recommended for these lesions per consensus recommendations based on imaging criteria.
[2023-12-15 03:57] VITALS: RESP 20; O2SAT 97
[2023-12-15] MEDS: morphine 4 mg/mL SDV 1 mL IVP (03:57)
[2023-12-15] MEDS: ondansetron 2 mg/ML SDV 2 mL 4 MG IVP (03:58)
[2023-12-15 04:00] VITALS: O2SAT 91
--- NOTE | 2023-12-15 04:16 | ED_ITS ---
HPI - Abdominal Pain 2 General: Chief Complaint: Abdominal Pain Stated Complaint: left sided abdominal pain Time Seen by Provider: 12/15/23 02:58 History of Present Illness: 58-year-old male [facility] He presents with upper abdominal pain. Pain worsened at some point this morning. He has had an episode of vomiting. No fever. He has had similar symptoms in the past, without causes found. He has also had similar symptoms with kidney stones. He has not noted any blood in his urine. No diarrhea. Associated Symptoms: Reports nausea and vomiting; Denies diarrhea and fever(s) Review of Systems 2 Const: Denies: fever(s) ENMT: Denies: throat pain Card: Denies: chest pain or palpitations Resp: Denies: dyspnea, productive cough or non-productive cough GI: Reports: abdominal pain, nausea and vomiting; Denies: diarrhea : Denies: flank pain Skin/Breast: Denies: rash PFSH ED 2 PFSH: Medical History Essential hypertension MSSA bacteremia Infection due to Port-A-Cath Anemia NSTEMI (non-ST elevated myocardial infarction) Hemodialysis access site with arteriovenous graft CAD (coronary artery disease) Hx of staphylococcal infection Chronic back pain Osteoarthritis Fibromyalgia GERD (gastroesophageal reflux disease) CKD (chronic kidney disease) Lumbar disc disease End stage renal disease on dialysis Diabetes mellitus Hypertensive emergency Congestive heart failure ESRD (end stage renal disease) Diabetes mellitus, type II Hypertension Cardiomyopathy Surgical History Status post insertion of hemodialysis catheter Status post peritoneal dialysis History of coronary artery stent placement S/P tonsillectomy S/P carpal tunnel release H/O circumcision History of cataract surgery Family History Mother Aneurysm Grandmother Cancer Sister Cancer Social History Smoking and tobacco/nicotine status: never used tobacco/nicotine Alcohol intake: never Substance/Drug Use: former 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 Clean since 1991 Lives independently: Yes Household members: none Housing: House Marital status: service: No Current occupational status: disabled Physical Exam 2 Const: COMMON NORMALS: no acute distress GENERAL APPEARANCE: cooperative; not ill appearing and not frail appearing HENMT: COMMON NORMALS: normocephalic, atraumatic and Normal external nose present HEAD & SCALP: normocephalic and atraumatic FACE & SINUS: normal facial exam and face symmetric NOSE: Normal external nose present Eye: COMMON NORMALS: Equal, round and reactive pupils present and EOMs intact bilaterally PUPIL: Yes Equal, round and reactive pupils present Neck/C-Spine: GENERAL: Yes trachea midline Chest: CHEST: Yes Symmetrical chest wall rise Resp: COMMON NORMALS: normal respiratory effort, No retractions, No use of accessory muscles and clear to auscultation bilaterally AUSCULTATION: clear to auscultation bilaterally Cardio: COMMON NORMALS: regular rate and regular rhythm RATE: regular rate RHYTHM: regular rhythm GI: COMMON NORMALS: Normal to inspection, nondistended, normoactive bowel sounds present PALPATION: Yes Tenderness to palpation present (GI) Details: LUQ and No Guarding due to palpation present (GI) Extremity: COMMON NORMALS: no pedal edema Neuro: LZI COMA SCALE: document GCS findings [place] coma scale eye opening: Spontaneous [place] coma scale verbal response: Orientated Liz coma scale motor response: Obey commands [place] coma scale total score: 15 S ENSORY EXAM: Yes extremities (intact) Psych: COMMON NORMALS: speech normal SPEECH: Yes normal speech Skin: COMMON NORMALS: no rashes or lesions noted GENERAL SKIN EXAM: no rashes or lesions noted Course 2 Vital Signs: Vital signs: Vital Signs Temperature 97.9 F 12/15/23 02:12 Pulse Rate 80 12/15/23 06:44 Respiratory Rate 18 12/15/23 06:44 Blood Pressure 215/92 12/15/23 06:44 Pulse Oximetry 92 12/15/23 06:44 Oxygen Delivery Me thod Room Air 12/15/23 04:00 MDM - Abdominal Pain Medical Decision Making Patient is hypertensive. He is due for dialysis later this morning. His white blood cell count is 8. Hemoglobin is 12. Creatinine is 8.6. Electrolytes are normal. His bilirubin is 0.7. CRP and lactic acid are both normal. CT shows distended gallbladder with some wall thickening. CBD was not well-visualized by CT. Ultrasound is suggested. It has been completed and the results are pending. Gallbladder ultrasound shows minimal diffuse gallbladder wall thickening, small amount of adjacent fluid. There is no Ramirez sign and no cholelithiasis. This is unlikely cholecystitis. Edema may be associated with the fact that he is due for dialysis later this morning. His symptoms are improved. He'll be prescribed a short course of pain medication to help with symptoms. He will be discharged to outpatient dialysis later this morning. Lab Data 12/15/23 02:45 12/15/23 02:45 Labs/Radiology: Radiology Impressions Abdomen/Pelvis CT 12/15/23 03:42 IMPRESSION: 1. Distended gallbladder with wall thickening. There is suggestion of intrahepatic ductal dilation. Common bile duct is not well visualized on this exam. Correlation with right upper quadrant ultrasound may be helpful. 2. Exophytic masslike structure along the greater curvature of the proximal stomach measuring 5 x 3.8 cm, increased in size compared to prior study (prior measurement 3.7 x 3.1 cm from 2020). Associated malignancy not excluded. COMMENTS: Consistent with the [employer]'s Incidental Findings Committee white paper (J Am Beata Radiol 2018): Any incidental renal lesion less than 1 cm or classified as too small to characterize, or any incidental cystic renal lesion characterized as simple-appearing, is likely benign. No follow-up imaging is recommended for these lesions per consensus recommendations based on imaging criteria. Gallbladder Ultrasound 12/15/23 04:59 IMPRESSION: 1. Mild diffuse gallbladder wall thickening and a small amount of adjacent fluid. No Ramirez sign and no cholelithiasis. This gallbladder wall thickening can be associated with cholecystitis but also hepatocellular disease. 2. Cirrhotic liver. 3. No ascites. 4. Atrophied RIGHT kidney with a simple cyst upper pole. Laboratory Results WBC 7.97 10^3/uL (3.29-11.43) 12/15/23 02:45 RBC 3.86 10^6/uL (3.85-5.65) 12/15/23 02:45 Hgb 11.80 g/dL (11.27-16.99) 12/15/23 02:45 Hct 36.0 % (37-53) L 12/15/23 02:45 MCV 93.3 fl (82-101) 12/15/23 02:45 MCH 30.6 pg (27-33) 12/15/23 02:45 MCHC 32.8 g/dL (30-55) 12/15/23 02:45 RDW 14.0 % (12.1-15.1) 12/15/23 02:45 Plt Count 125 10^3/cmm (157-399) L 12/15/23 02:45 MPV 10.5 fL (7.4-10.4) H 12/15/23 02:45 Neut % (Auto) 81.7 % 12/15/23 02:45 Lymph % (Auto) 7.2 % 12/15/23 02:45 Schley % (Auto) 6.8 % 12/15/23 02:45 Eos % (Auto) 3.0 % 12/15/23 02:45 Baso % (Auto) 0.9 % 12/15/23 02:45 Neut # (Auto) 6.52 10^3/uL (1.8-7.7) 12/15/23 02:45 Lymph # (Auto) 0.6 10^3/uL (0.8-4.8) L 12/15/23 02:45 Schley # (Auto) 0.5 10^3/uL (0.2-0.9) 12/15/23 02:45 Eos # (Auto) 0.2 10^3/uL (0.0-0.8) 12/15/23 02:45 Baso # (Auto) 0.1 10^3/uL (0.0-0.1) 12/15/23 02:45 Nucleated RBC % (auto) 0 % 12/15/23 02:45 Nucleated RBCs # 0.0 /100WBC 12/15/23 02:45 Sodium 139 mmol/L (136-145) 12/15/23 02:45 Potassium 5.1 mmol/L (3.5-5.1) 12/15/23 02:45 Chloride 98 mmol/L (98-107) 12/15/23 02:45 Carbon Dioxide 24 mmol/L (22-29) 12/15/23 02:45 Anion Gap 22.1 (5-19) H 12/15/23 02:45 BUN 55 mg/dL (6-20) H 12/15/23 02:45 Creatinine 8.6 mg/dL (0.7-1.2) H* 12/15/23 02:45 GFR Calculation 6.4 mL/min (90-130) L 12/15/23 02:45 Glucose 148 mg/dL (65-115) H 12/15/23 02:45 Calculated Osmolality 306 mOsm/kg (285-295) H 12/15/23 02:45 Lactic Acid 1.0 mmol/L (0.5-2.2) 12/15/23 02:45 Calcium 8.9 mg/dL (8.5-10.5) 12/15/23 02:45 Phosphorus 6.1 mg/dL (2.5-4.5) H 12/15/23 02:45 Magnesium 2.3 mg/dL (1.7-2.3) 12/15/23 02:45 Total Bilirubin 0.7 mg/dL (0.15-1.2) 12/15/23 02:45 AST 31 U/L (0-40) 12/15/23 02:45 ALT 22 U/L (0-41) 12/15/23 02:45 Alkaline Phosphatase 135 U/L (40-130) H 12/15/23 02:45 C-Reactive Protein 3.0 mg/L (0.0-4.9) 12/15/23 02:45 Total Protein 7.8 g/dL (6.6-8.7) 12/15/23 02:45 Albumin 4.1 g/dL (3.5-5.2) 12/15/23 02:45 Globulin 3.7 g/dL (1.3-4.6) 12/15/23 02:45 All radiology interpretation(s) finalized by discharge Discharge Plan Discharge Patient Disposition: Home Clinical Impression: Abdominal pain Condition: Stable Prescriptions: Continued hydrocodone-acetaminophen 5-325 mg tablet 1 - 2 tab PO Q6H Qty: 10 0RF Rx Instructions: MAX 6 PER DAY No Action metoprolol tartrate 50 mg tablet 50 mg PO BID (DME) Diabetic shoes with Accomadative Insoles See Rx Instructions .Route .MEDSUPPLY Qty: 1 0RF Rx Instructions: As directed by HOME isosorbide mononitrate 30 mg tablet extended release 24 hr 30 mg PO DAILY Qty: 90 3RF (DME) Discontinue Dressing Changes See Rx Instructions .Route .MEDSUPPLY Qty: 1 0RF Rx Instructions: Please discontinue dressing changes as patient is healed. Thank you atorvastatin 20 mg Tablet 20 mg PO QPM pantoprazole 40 mg Tablet,Delayed Release (Dr/Ec) 40 mg PO DAILY nitroglycerin [Nitrostat] 0.4 mg Tablet, Sublingual 0.4 mg SUBLINGUAL Q5M PRN (Reason: chest pain) duloxetine 60 mg Capsule, Delayed Rel Sprinkle 60 mg PO DAILY Tresiba U-100 Insulin 100 unit/mL solution 30 unit SUBCUT DAILY B complex-vitamin C-folic acid 0.8 mg Tablet 1 tab PO DAILY minoxidil 2.5 mg tablet 2.5 mg PO DIRECTED Rx Instructions: 2 tabs at night 3 tabs in AM amlodipine 10 mg tablet 10 mg PO BEDTIME lanthanum 750 mg tablet,chewable 2,250 mg PO TID RenaPlex-D 800 mcg-12.5 mg -2,000 unit tablet 1 tab PO DAILY losartan 100 mg tablet 50 mg PO DAILY ondansetron HCl 4 mg tablet 4 mg PO Q6H PRN (Reason: nausea and vomiting) Qty: 30 0RF Discharge Orders: Discharge ED (Routine); Ordered 12/15/23 Ordered By: Miguel Espinal Referrals: Sandy Kelly MD [Primary Care Provider] - 1-3 days Patient Instructions: Abdominal Pain (ED), Opioid Safety, Pain Management Activity Restrictions/Additional Instructions: Return for fever greater than 100, liquids or medications, worsening pain, other concerning symptoms. See your doctor later this week. Coding Level of Care Code ED [employer] for [employer] Keen
[2023-12-15] MEDS: lidocaine 2% viscous 15 ML, aluminum-mag hydrox-simethicon 30 ML, sucralfate oral liq 1 GM PO (04:47)
--- NOTE | 2023-12-15 04:59 | US_ITS ---
WS: [id number] RIGHT UPPER QUADRANT ULTRASOUND HISTORY: abd pain, thickened gb wall on ct COMPARISON: CT 12/15/2023 Liver: 16.3 cm in length. Normal size liver. Nodular margin consistent with cirrhosis. No mass or int rahepatic duct dilatation. Portal Vein: Normal hepatopetal flow with monophasic waveform. Gallbladder: Mild gallbladder wall thickening. There is a small amount of adjacent edema. No stones i dentified. No Ramirez sign. CBD: 0.5 cm Pancreas: Not visualized well. Right kidney: 7.5 cm in length. Small caliber RIGHT kidney. Exophytic cyst from the upper pole 2.6 x 2.1 x 3.4 cm. Aorta and IVC: Unremarkable abdominal aorta and IVC. No ascites. US/US gall bladder [id number] IMPRESSION: 1. Mild diffuse gallbladder wall thickening and a small amount of adjacent flu id. No Ramirez sign and no cholelithiasis. This gallbladder wall thickening can be associated with cholecystitis but also hepatocellular disease. 2. Cirrhotic liver. 3. No ascites. 4. Atrophied RIGHT kidney with a simple cyst upper pole.
[2023-12-15 06:44] VITALS: BP 215/92; PULSE 80; RESP 18; O2SAT 92
== END 2023-12-15 07:49 | disposition home or self-care (01) ==
PROVIDERS: Emergency Provider Emergency Medicine; PCP Internal Medicine
DX: R10.10 Upper abdominal pain, unspecified (principal); Z79.4 Long term (current) use of insulin; E11.22 Type 2 diabetes mellitus with diabetic chronic kidney disease; I13.2 Hypertensive heart and chronic kidney disease with heart failure and with stage 5 chronic kidney disease, or end stage renal disease; I50.9 Heart failure, unspecified; N18.6 End stage renal disease; Z99.2 Dependence on renal dialysis; I25.2 Old myocardial infarction; I25.10 Atherosclerotic heart disease of native coronary artery without angina pectoris; I43 Cardiomyopathy in diseases classified elsewhere
CPT/HCPCS: 36415; 74176; 76705; 80053; 83605; 83735; 84100; 85025; 86140; 96374; 96375; 99285; J2270; J2405

== ENCOUNTER 2024-07-06 16:47 | Emergency (ER) | payer MEDICARE, MEDICAID, SELFPAY ==
[2024-07-06 16:55] VITALS: BP 204/89; PULSE 60; RESP 16; TEMP 36.9; O2SAT 90; BMI 37.7
--- NOTE | 2024-07-06 17:07 | ED_ITS ---
Documented by User: Sacha Santoyo DO 07/09/24 06:36 HPI - Wound/Laceration 2 General: Chief Complaint: Wound/Laceration Stated Complaint: Bleeding from port Time Seen by Provider: 07/06/24 16:51 History of Present Illness: 59-year-old male presents emergency room with bleeding from his dialysis fistula. He recently had the fistula repaired by grafting not had problems since his dialysis on Friday but after the remove the needle he continues to have bleeding and has a clamp on for approximately the last 2-1/2 to 3 hours still bleeds when he removes it needed been checking it every 10 minutes. Associated symptoms: Denies chills or fever(s) Related Data Home Medications Medication Instructions Recorded Confirmed atorvastatin 20 mg tablet 20 mg PO QPM 07/13/19 07/11/23 duloxetine 60 mg capsule,delayed 60 mg PO DAILY 07/13/19 07/11/23 release sprinkle nitroglycerin 0.4 mg sublingual 0.4 mg sublingual Q5M PRN chest 07/13/19 07/11/23 tablet (Nitrostat) pain pantoprazole 40 mg tablet,delayed 40 mg PO DAILY 07/13/19 07/11/23 release insulin degludec 100 unit/mL 30 unit SUBCUT DAILY 03/28/20 07/11/23 subcutaneous solution (Tresiba U-100 Insulin) vitamin B complex-vitamin C-folic 1 tab PO DAILY 03/03/22 07/11/23 acid 0.8 mg tablet metoprolol tartrate 50 mg tablet 50 mg PO BID 07/25/22 07/11/23 minoxidil 2.5 mg tablet 2.5 mg PO DIRECTED 07/25/22 07/11/23 amlodipine 10 mg tablet 10 mg PO BEDTIME 07/11/23 07/11/23 lanthanum 750 mg chewable tablet 2,250 mg PO TID 07/11/23 07/11/23 losartan 100 mg tablet 50 mg PO DAILY 07/11/23 07/11/23 vit B,C-folic ac 800 mcg-zinc 12.5 1 tab PO DAILY 07/11/23 07/11/23 mg-selen-D3 2,000 unit-vit E tablet (RenaPlex-D) Previous Rx's Medication Instructions Recorded isosorbide mononitrate 30 mg 30 mg PO DAILY #90 tabs 05/21/21 tablet,extended release 24 hr Discontinue Dressing Changes #1 ea 07/16/22 Diabetic shoes with Accomadative #1 ea 08/14/22 Insoles ondansetron HCl 4 mg tablet 4 mg PO Q6H PRN nausea and 07/11/23 vomiting #30 tabs hydrocodone 5 mg-acetaminophen 325 1 - 2 tab PO Q6H PAIN #10 tabs 12/15/23 mg tablet Allergies Allergy/AdvReac Type Severity Reaction Status Date / Time No Known Allergies Allergy Verified 07/06/24 16:57 Review of Systems 2 Const: Denies: fever(s) or chills Card: Denies: chest pain Resp: Denies: dyspnea GI: Denies: abdominal pain Musc: Denies: neck pain or back pain Skin/Breast: Denies: rash PFSH ED 2 PFSH: Medical History Essential hypertension MSSA bacteremia Infection due to Port-A-Cath Anemia NSTEMI (non-ST elevated myocardial infarction) Hemodialysis access site with arteriovenous graft CAD (coronary artery disease) Hx of staphylococcal infection Chronic back pain Osteoarthritis Fibromyalgia GERD (gastroesophageal reflux disease) CKD (chronic kidney disease) Lumbar disc disease End stage renal disease on dialysis Diabetes mellitus Hypertensive emergency Congestive heart failure ESRD (end stage renal disease) Diabetes mellitus, type II Hypertension Cardiomyopathy Surgical History Status post insertion of hemodialysis catheter Status post peritoneal dialysis History of coronary artery stent placement S/P tonsillectomy S/P carpal tunnel release H/O circumcision History of cataract surgery Family History Mother Aneurysm Grandmother Cancer Sister Cancer Social History Smoking and tobacco/nicotine status: never used tobacco/nicotine Alcohol intake: never Substance/Drug Use: former 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 Clean since 1991 Lives independently: Yes Household members: none Housing: House Marital status: service: No Current occupational status: disabled Physical Exam 2 Const: GENERAL APPEARANCE: cooperative ORIENTATION/CONSCIOUSNESS: Yes awake, Yes oriented to person, Yes oriented to place and Yes oriented to time HENMT: COMMON NORMALS: normocephalic, atraumatic and hearing grossly normal bilaterally HEAD & SCALP: normocephalic and atraumatic Resp: COMMON NORMALS: normal respiratory effort, No retractions, No use of accessory muscles and clear to auscultation bilaterally AUSCULTATION: clear to auscultation bilaterally Cardio: COMMON NORMALS: regular rate, regular rhythm and No murmurs present (Cardio) RATE: regular rate RHYTHM: regular rhythm GI: COMMON NORMALS: Soft to palpation and No hepatosplenomegaly present A USCULTATION: Yes normoactive bowel sounds PALPATION: Yes Soft to palpation, No Tenderness to palpation present (GI), No Guarding due to palpation present (GI) and Yes No hepatosplenomegaly present Extremity: COMMON NORMALS: normal to inspection, capillary refill normal, no clubbing, cyanosis or edema, no calf tenderness and no pedal edema OTHER: Active bleeding from the fistula in the right upper arm. Initially arrived patient had a large bulky bandage on it this was removed and examined initially there is no bleeding and then began to have pulsatile bleeding. Pressure bandage applied and then later applied quick clot with an overlying pressure bandage. Neuro: SENSORIUM/ORIENTATION: Yes oriented to person, Yes oriented to place and Yes oriented to time Skin: COMMON NORMALS: no rashes or lesions noted GENERAL SKIN EXAM: no rashes or lesions noted Course 2 Vital Signs: Vital signs: Vital Signs Temperature 98.5 F 07/06/24 16:55 Pulse Rate 64 07/06/24 20:51 Respiratory Rate 18 07/06/24 19:50 Blood Pressure 148/68 07/06/24 20:51 Pulse Oximetry 95 07/06/24 20:51 MDM - Wound/Laceration Medical Decision Making Surgifoam applied to the wound direct pressure bandage applied with Coban. Will leave in place for a time with overlying clamp. Blood pressure elevated given hydralazine. Care signed out to Dr. Espinal at change of shift. See final notes for diagnosis and disposition. This patient checked out to me at shift change. His hemoglobin is 11. His vital signs are stable, initially, he was quite hypertensive. This improved with control of the bleeding and his anxiety related to such. He was also given 10 mg of hydralazine for blood pressure control. Final blood pressure was 148/68. The patient continued to bleed despite pressure dressing consisting of Surgifoam, gauze, Coban, and a clamp. This was in place for over an hour. With failure of this potential treatment, [id number] sutures were placed, stopping the bleeding. He will go home with a dressing. He has dialysis on Friday. Wound can be checked at that point. Lab Data 07/06/24 17:00 Laboratory Results WBC 5.37 10^3/uL (3.29-11.43) 07/06/24 17:00 RBC 3.40 10^6/uL (3.85-5.65) L 07/06/24 17:00 Hgb 10.80 g/dL (11.27-16.99) L 07/06/24 17:00 Hct 33.0 % (37-53) L 07/06/24 17:00 MCV 97.1 fl (82-101) 07/06/24 17:00 MCH 31.8 pg (27-33) 07/06/24 17:00 MCHC 32.7 g/dL (30-55) 07/06/24 17:00 RDW 12.6 % (12.1-15.1) 07/06/24 17:00 Plt Count 135 10^3/cmm (157-399) L 07/06/24 17:00 MPV 10.2 fL (7.4-10.4) 07/06/24 17:00 Neut % (Auto) 58.2 % 07/06/24 17:00 Lymph % (Auto) 21.6 % 07/06/24 17:00 Warren % (Auto) 9.9 % 07/06/24 17:00 Eos % (Auto) 8.4 % 07/06/24 17:00 Baso % (Auto) 1.7 % 07/06/24 17:00 Neut # (Auto) 3.13 10^3/uL (1.8-7.7) 07/06/24 17:00 Lymph # (Auto) 1.2 10^3/uL (0.8-4.8) 07/06/24 17:00 Warren # (Auto) 0.5 10^3/uL (0.2-0.9) 12/24/24 17:00 Eos # (Auto) 0.5 10^3/uL (0.0-0.8) 07/06/24 17:00 Baso # (Auto) 0.1 10^3/uL (0.0-0.1) 07/06/24 17:00 Nucleated RBC % (auto) 0 % 07/06/24 17:00 Nucleated RBCs # 0.0 /100WBC 07/06/24 17:00 Discharge Plan Discharge Patient Disposition: Home Clinical Impression: Hemorrhage of arteriovenous fistula Condition: Stable Prescriptions: No Action metoprolol tartrate 50 mg tablet 50 mg PO BID (DME) Diabetic shoes with Accomadative Insoles See Rx Instructions .Route .MEDSUPPLY Qty: 1 0RF Rx Instructions: As directed by HOME isosorbide mononitrate 30 mg tablet extended release 24 hr 30 mg PO DAILY Qty: 90 3RF (DME) Discontinue Dressing Changes See Rx Instructions .Route .MEDSUPPLY Qty: 1 0RF Rx Instructions: Please discontinue dressing changes as patient is healed. Thank you atorvastatin 20 mg Tablet 20 mg PO QPM pantoprazole 40 mg Tablet,Delayed Release (Dr/Ec) 40 mg PO DAILY nitroglycerin [Nitrostat] 0.4 mg Tablet, Sublingual 0.4 mg SUBLINGUAL Q5M PRN (Reason: chest pain) duloxetine 60 mg Capsule, Delayed Rel Sprinkle 60 mg PO DAILY Tresiba U-100 Insulin 100 unit/mL solution 30 unit SUBCUT DAILY B complex-vitamin C-folic acid 0.8 mg Tablet 1 tab PO DAILY minoxidil 2.5 mg tablet 2.5 mg PO DIRECTED Rx Instructions: 2 tabs at night 3 tabs in AM amlodipine 10 mg tablet 10 mg PO BEDTIME lanthanum 750 mg tablet,chewable 2,250 mg PO TID RenaPlex-D 800 mcg-12.5 mg -2,000 unit tablet 1 tab PO DAILY losartan 100 mg tablet 50 mg PO DAILY ondansetron HCl 4 mg tablet 4 mg PO Q6H PRN (Reason: nausea and vomiting) Qty: 30 0RF hydrocodone-acetaminophen 5-325 mg tablet 1 - 2 tab PO Q6H Qty: 10 0RF Rx Instructions: MAX 6 PER DAY Discharge Orders: Discharge ED (Routine); Ordered 07/06/24 Ordered By: Miguel Espinal Referrals: Sandy Kelly MD [Primary Care Provider] - Patient Instructions: Opioid Safety, Pain Management Activity Restrictions/Additional Instructions: Keep wound covered with clean gauze and wrap. You may shower tomorrow. Do not soak the arm in water. Have your dialysis nurse inspect the area on Friday, to determine when sutures can come out. It may be Friday before they can come out. Return for continued bleeding, other concerning symptoms. Coding Level of Care Code ED Bag Sealer for Chg Fwd Documented by User: Miguel Espinal, DO 07/06/24 21:51 HPI - Wound/Laceration 2 General: Chief Complaint: Wound/Laceration Stated Complaint: Bleeding from port Time Seen by Provider: 07/06/24 16:51 Related Data Home Medications Medication Instructions Recorded Confirmed atorvastatin 20 mg tablet 20 mg PO QPM 07/13/19 07/11/23 duloxetine 60 mg capsule,delayed 60 mg PO DAILY 07/13/19 07/11/23 release sprinkle nitroglycerin 0.4 mg sublingual 0.4 mg sublingual Q5M PRN chest 07/13/19 07/11/23 tablet (Nitrostat) pain pantoprazole 40 mg tablet,delayed 40 mg PO DAILY 07/13/19 07/11/23 release insulin degludec 100 unit/mL 30 unit SUBCUT DAILY 03/28/20 07/11/23 subcutaneous solution (Tresiba U-100 Insulin) vitamin B complex-vitamin C-folic 1 tab PO DAILY 03/03/22 07/11/23 acid 0.8 mg tablet metoprolol tartrate 50 mg tablet 50 mg PO BID 07/25/22 07/11/23 minoxidil 2.5 mg tablet 2.5 mg PO DIRECTED 07/25/22 07/11/23 amlodipine 10 mg tablet 10 mg PO BEDTIME 07/11/23 07/11/23 lanthanum 750 mg chewable tablet 2,250 mg PO TID 07/11/23 07/11/23 losartan 100 mg tablet 50 mg PO DAILY 07/11/23 07/11/23 vit B,C-folic ac 800 mcg-zinc 12.5 1 tab PO DAILY 07/11/23 07/11/23 mg-selen-D3 2,000 unit-vit E tablet (RenaPlex-D) Previous Rx's Medication Instructions Recorded isosorbide mononitrate 30 mg 30 mg PO DAILY #90 tabs 05/21/21 tablet,extended release 24 hr Discontinue Dressing Changes #1 ea 07/16/22 Diabetic shoes with Accomadative #1 ea 08/14/22 Insoles ondansetron HCl 4 mg tablet 4 mg PO Q6H PRN nausea and 07/11/23 vomiting #30 tabs hydrocodone 5 mg-acetaminophen 325 1 - 2 tab PO Q6H PAIN #10 tabs 12/15/23 mg tablet Allergies Allergy/AdvReac Type Severity Reaction Status Date / Time No Known Allergies Allergy Verified 07/06/24 16:57 PFSH ED 2 PFSH: Medical History Essential hypertension MSSA bacteremia Infection due to Port-A-Cath Anemia NSTEMI (non-ST elevated myocardial infarction) Hemodialysis access site with arteriovenous graft CAD (coronary artery disease) Hx of staphylococcal infection Chronic back pain Osteoarthritis Fibromyalgia GERD (gastroesophageal reflux disease) CKD (chronic kidney disease) Lumbar disc disease End stage renal disease on dialysis Diabetes mellitus Hypertensive emergency Congestive heart failure ESRD (end stage renal disease) Diabetes mellitus, type II Hypertension Cardiomyopathy Surgical History Status post insertion of hemodialysis catheter Status post peritoneal dialysis History of coronary artery stent placement S/P tonsillectomy S/P carpal tunnel release H/O circumcision History of cataract surgery Family History Mother Aneurysm Grandmother Cancer Sister Cancer Social History Smoking and tobacco/nicotine status: never used tobacco/nicotine Alcohol intake: never Substance/Drug Use: former 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 Clean since 1991 Lives independently: Yes Household members: none Housing: House Marital status: service: No Current occupational status: disabled Procedures Laceration Laceration 1: Site: upper extremity (Right upper extremity vascular graft puncture wound) Side (If applicable): right Size (cm): 1 Description: other (Puncture) Depth: simple, single layer Local Anesthetic: lidocaine 1% and with epi Amount of anesthesia used (mL): 5 Pre-repair: irrigated extensively Skin layer closed with: nylon Size (cm): 3-0 Number of sutures: 3 (2 [id number], 1 simple) Course 2 Vital Signs: Vital signs: Vital Signs Temperature 98.5 F 07/06/24 16:55 Pulse Rate 64 07/06/24 20:51 Respiratory Rate 18 07/06/24 19:50 Blood Pressure 148/68 07/06/24 20:51 Pulse Oximetry 95 07/06/24 20:51 MDM - Wound/Laceration Medical Decision Making This patient checked out to me at shift change. His hemoglobin is 11. His vital signs are stable, initially, he was quite hypertensive. This improved with control of the bleeding and his anxiety related to such. He was also given 10 mg of hydralazine for blood pressure control. Final blood pressure was 148/68. The patient continued to bleed despite pressure dressing consisting of Surgifoam, gauze, Coban, and a clamp. This was in place for over an hour. With failure of this potential treatment, [id number] sutures were placed, stopping the bleeding. He will go home with a dressing. He has dialysis on Friday. Wound can be checked at that point. Lab Data 07/06/24 17:00 Laboratory Results WBC 5.37 10^3/uL (3.29-11.43) 07/06/24 17:00 RBC 3.40 10^6/uL (3.85-5.65) L 07/06/24 17:00 Hgb 10.80 g/dL (11.27-16.99) L 07/06/24 17:00 Hct 33.0 % (37-53) L 07/06/24 17:00 MCV 97.1 fl (82-101) 07/06/24 17:00 MCH 31.8 pg (27-33) 07/06/24 17:00 MCHC 32.7 g/dL (30-55) 07/06/24 17:00 RDW 12.6 % (12.1-15.1) 07/06/24 17:00 Plt Count 135 10^3/cmm (157-399) L 07/06/24 17:00 MPV 10.2 fL (7.4-10.4) 07/06/24 17:00 Neut % (Auto) 58.2 % 07/06/24 17:00 Lymph % (Auto) 21.6 % 07/06/24 17:00 Warren % (Auto) 9.9 % 07/06/24 17:00 Eos % (Auto) 8.4 % 07/06/24 17:00 Baso % (Auto) 1.7 % 07/06/24 17:00 Neut # (Auto) 3.13 10^3/uL (1.8-7.7) 07/06/24 17:00 Lymph # (Auto) 1.2 10^3/uL (0.8-4.8) 07/06/24 17:00 Warren # (Auto) 0.5 10^3/uL (0.2-0.9) 07/06/24 17:00 Eos # (Auto) 0.5 10^3/uL (0.0-0.8) 07/06/24 17:00 Baso # (Auto) 0.1 10^3/uL (0.0-0.1) 07/06/24 17:00 Nucleated RBC % (auto) 0 % 07/06/24 17:00 Nucleated RBCs # 0.0 /100WBC 07/06/24 17:00 No radiology studies performed this visit Discharge Plan Discharge Patient Disposition: Home Clinical Impression: Hemorrhage of arteriovenous fistula Condition: Stable Prescriptions: No Action metoprolol tartrate 50 mg tablet 50 mg PO BID (DME) Diabetic shoes with Accomadative Insoles See Rx Instructions .Route .MEDSUPPLY Qty: 1 0RF Rx Instructions: As directed by HOME isosorbide mononitrate 30 mg tablet extended release 24 hr 30 mg PO DAILY Qty: 90 3RF (DME) Discontinue Dressing Changes See Rx Instructions .Route .MEDSUPPLY Qty: 1 0RF Rx Instructions: Please discontinue dressing changes as patient is healed. Thank you atorvastatin 20 mg Tablet 20 mg PO QPM pantoprazole 40 mg Tablet,Delayed Release (Dr/Ec) 40 mg PO DAILY nitroglycerin [Nitrostat] 0.4 mg Tablet, Sublingual 0.4 mg SUBLINGUAL Q5M PRN (Reason: chest pain) duloxetine 60 mg Capsule, Delayed Rel Sprinkle 60 mg PO DAILY Tresiba U-100 Insulin 100 unit/mL solution 30 unit SUBCUT DAILY B complex-vitamin C-folic acid 0.8 mg Tablet 1 tab PO DAILY minoxidil 2.5 mg tablet 2.5 mg PO DIRECTED Rx Instructions: 2 tabs at night 3 tabs in AM amlodipine 10 mg tablet 10 mg PO BEDTIME lanthanum 750 mg tablet,chewable 2,250 mg PO TID RenaPlex-D 800 mcg-12.5 mg -2,000 unit tablet 1 tab PO DAILY losartan 100 mg tablet 50 mg PO DAILY ondansetron HCl 4 mg tablet 4 mg PO Q6H PRN (Reason: nausea and vomiting) Qty: 30 0RF hydrocodone-acetaminophen 5-325 mg tablet 1 - 2 tab PO Q6H Qty: 10 0RF Rx Instructions: MAX 6 PER DAY Discharge Orders: Discharge ED (Routine); Ordered 07/06/24 Ordered By: Miguel Espinal Referrals: Sandy Kelly MD [Primary Care Provider] - Patient Instructions: Opioid Safety, Pain Management Activity Restrictions/Additional Instructions: Keep wound covered with clean gauze and wrap. You may shower tomorrow. Do not soak the arm in water. Have your dialysis nurse inspect the area on Friday, to determine when sutures can come out. It may be Friday before they can come out. Return for continued bleeding, other concerning symptoms. Coding Level of Care Code ED Bag Sealer for Thomas Keen
[2024-07-06 17:11] LABS: Basophils # 0.1 10^3/uL (0.0-0.1); Basophils % 1.7 %; Eosinophils # 0.5 10^3/uL (0.0-0.8); Eosinophils % 8.4 %; Lymphocytes # 1.2 10^3/uL (0.8-4.8); Lymphocytes % 21.6 %; Mean Corpuscular HGB Conc 32.7 g/dL (30-55); Mean Corpuscular Hemoglobin 31.8 pg (27-33); Mean Corpuscular Volume 97.1 fl (82-101); Mean Platelet Volume 10.2 fL (7.4-10.4); Monocytes # 0.5 10^3/uL (0.2-0.9); Monocytes % 9.9 %; Neutrophils # 3.13 10^3/uL (1.8-7.7); Neutrophils % 58.2 %; Nucleated Red Blood Cells % 0 %; Platelet Count 135 10^3/cmm (157-399); Red Cell Distribution Width 12.6 % (12.1-15.1); White Blood Count 5.37 10^3/uL (3.29-11.43)
[2024-07-06] MEDS: tranexamic acid 1,000 mg/10mL SDV 1000 MG TOPICAL (17:46)
[2024-07-06 18:34] VITALS: BP 213/93; PULSE 55; O2SAT 94
[2024-07-06 18:56] VITALS: RESP 17; O2SAT 95
[2024-07-06] MEDS: morphine 4 mg/mL SDV 1 mL IVP (18:56)
[2024-07-06] MEDS: ondansetron 2 mg/ML SDV 2 mL 4 MG IVP (19:00)
[2024-07-06] MEDS: lidocaine-epi 1% 20 mL INJ 10 ML INJECTION (19:43)
[2024-07-06 19:50] VITALS: BP 122/63; PULSE 72; RESP 18; O2SAT 94
[2024-07-06] MEDS: hyDRALAzine 20 mg/mL INJ 1 mL IVP (20:02)
[2024-07-06 20:50] VITALS: BP 148/56; PULSE 67; O2SAT 94
[2024-07-06 20:51] VITALS: BP 148/68; PULSE 64; O2SAT 95
== END 2024-07-06 20:53 | disposition home or self-care (01) ==
PROVIDERS: Family Medicine; Emergency Provider Emergency Medicine; PCP Internal Medicine
DX: T82.838A Hemorrhage due to vascular prosthetic devices, implants and grafts, initial encounter (principal); X58.XXXA Exposure to other specified factors, initial encounter; E11.22 Type 2 diabetes mellitus with diabetic chronic kidney disease; I13.2 Hypertensive heart and chronic kidney disease with heart failure and with stage 5 chronic kidney disease, or end stage renal disease; I50.9 Heart failure, unspecified; N18.6 End stage renal disease; Z99.2 Dependence on renal dialysis
CPT/HCPCS: 12001; 36415; 85025; 96374; 96375; 99284; J0360; J2270; J2405

== ENCOUNTER → 2024-09-14 10:52 | Outpatient (BNVA) | payer MEDICARE, MEDICAID, SELFPAY | PROVIDERS: PCP Internal Medicine; Visit Provider Internal Medicine Cardiovascular Disease | DX: I25.5 Ischemic cardiomyopathy (principal); I13.2 Hypertensive heart and chronic kidney disease with heart failure and with stage 5 chronic kidney disease, or end stage renal disease; E11.22 Type 2 diabetes mellitus with diabetic chronic kidney disease; I50.9 Heart failure, unspecified; Z79.4 Long term (current) use of insulin; Z99.2 Dependence on renal dialysis; N18.6 End stage renal disease; R00.1 Bradycardia, unspecified | CPT/HCPCS: 99214 ==

== ENCOUNTER 2024-11-23 01:48 | Emergency (ER) | payer MEDICARE, MEDICAID, SELFPAY ==
[2024-11-23 01:50] VITALS: BP 189/78; PULSE 69; RESP 18; TEMP 36.8; O2SAT 93; BMI 36.8
--- NOTE | 2024-11-23 02:02 | CTR_ITS ---
PROCEDURE INFORMATION: Exam: CT Abdomen And Pelvis Without Contrast Exam date and time: 11/23/2024 2:15 AM Age: 59 years old Clinical indication: Abdominal pain; Localized; Left lower quadrant (llq); Additional info: Llq pain, dialysis patient (hence no contrast) TECHNIQUE: Imaging protocol: Computed tomography of the abdomen and pelvis without contrast. Radiation optimization: All CT scans at this facility use at least one of these dose optimization techniques: automated exposure control; mA and/or kV adjustment per patient size (includes targeted exams where dose is matched to clinical indication); or iterative reconstruction. COMPARISON: CT kidney stone [id number] 12/15/2023 3:49 AM RADIATION DOSE METRICS: Total DLP (mGy-cm): 1120.8 FINDINGS: Liver: Normal. No mass. Gallbladder and biliary ducts: Normal. No calcified stones. No ductal dilation. Pancreas: stranding around the pancreatic head and duodenum . Spleen: Normal. No splenomegaly. Adrenal glands: Normal. No mass. Kidneys and ureters: Bilateral likely benign renal cysts are present, requiring no further evaluation, as large as 40 mm on the right and 15 mm on the left . Stomach and bowel: Increased stool within the colon. No dilated bowel. Appendix: No evidence of appendicitis. Intraperitoneal space: Unremarkable. No free air. No significant fluid collection. Vasculature: Vascular calcification in the aorta and iliac vessels. No aneurysm. Lymph nodes: Unremarkable. No enlarged lymph nodes. Urinary bladder: Thickening of the urinary bladder suspicious for cystitis versus incomplete distension. Reproductive: Unremarkable as visualized. Bones/joints: Lumbar spine degenerative changes. No acute fracture. Moderate scoliosis convex to the left Soft tissues: There is a fat containing bilateral inguinal hernia. CT/CT abdomen pelvis wo con [id number] IMPRESSION: 1. Thickening of the urinary bladder suspicious for cystitis versus incomplete distension. 2. Stranding around the pancreatic head and duodenum . May represent duodenitis or pancreatitis 3. Increased stool within the colon. No dilated bowel.
[2024-11-23 02:09] LABS: Basophils # 0.1 10^3/uL (0.0-0.1); Basophils % 1.6 %; Eosinophils # 0.3 10^3/uL (0.0-0.8); Eosinophils % 6.1 %; Hematocrit 37.7 % (37-53); Lymphocytes # 0.7 10^3/uL (0.8-4.8); Lymphocytes % 13.1 %; Mean Corpuscular HGB Conc 32.6 g/dL (30-55); Mean Corpuscular Hemoglobin 31.9 pg (27-33); Mean Corpuscular Volume 97.7 fl (82-101); Mean Platelet Volume 11.2 fL (7.4-10.4); Monocytes # 0.5 10^3/uL (0.2-0.9); Monocytes % 8.4 %; Neutrophils # 3.93 10^3/uL (1.8-7.7); Neutrophils % 70.6 %; Nucleated Red Blood Cells % 0 %; Platelet Count 115 10^3/cmm (157-399); Red Blood Count 3.86 10^6/uL (3.85-5.65); Red Cell Distribution Width 14.5 % (12.1-15.1); White Blood Count 5.57 10^3/uL (3.29-11.43)
[2024-11-23] MEDS: morphine 4 mg/mL SDV 1 mL IVP ×2 (02:09→03:20)
[2024-11-23 02:27] LABS: Alanine Aminotransferase 17 U/L (0-41); Albumin Level 3.9 g/dL (3.5-5.2); Alkaline Phosphatase 140 U/L (40-130); Blood Urea Nitrogen 30 mg/dL (6-20); Calcium 9.8 mg/dL (8.5-10.5); Carbon Dioxide 28 mmol/L (22-29); Chloride 97 mmol/L (98-107); Creatinine Clr Calc Pharmacy 16.5999; Globulin 3.8 g/dL (1.3-4.6); Glomerular Filtration Rate 8.8 mL/min (90-130); Glucose 155 mg/dL (65-115); Lipase 19 U/L (13-60); Osmolality Calculated 301 mOsm/kg (285-295); Sodium 141 mmol/L (136-145); Total Bilirubin 1.4 mg/dL (0.15-1.2); Total Protein 7.7 g/dL (6.6-8.7)
[2024-11-23 02:28] LABS: Lactic Sepsis W/Reflex 1.4 mmol/L (0.5-2.2)
[2024-11-23 02:33] LABS: Anion Gap 20.9 (5-19); Aspartate Amino Transferase 33 U/L (0-40); Potassium 4.9 mmol/L (3.5-5.1)
[2024-11-23 03:02] VITALS: BP 209/101; PULSE 87; RESP 18; O2SAT 93
--- NOTE | 2024-11-23 03:05 | PC.NURSE ---
md aware of elevated B/P, no new orders.
--- NOTE | 2024-11-23 03:58 | W.ED.ABDPA2 ---
HPI - Abdominal Pain General: Chief Complaint: Abdominal Pain Stated Complaint: ABD PAIN Time Seen by Provider: 11/23/24 01:51 History of Present Illness: Patient is a well-appearing 59-year-old male on dialysis for end-stage renal disease seen for abdominal pain. He describes the pain as intermittent, 10 of 10, left lower quadrant, and cramping. It lasts for several minutes at a time. He has had this pain in the past and no one has been able to tell him what it is. He has been seen multiple times by multiple doctors and multiple specialties without a clear answer. He last underwent dialysis today and completed it. He denies fever, cough, constipation, diarrhea, nausea, vomiting, and has no other acute complaints. Related Data Home Medications ?Medication ?Instructions ?Recorded ?Confirmed nitroglycerin 0.4 mg sublingual 0.4 mg sublingual Q5M PRN chest 07/13/19 09/14/24 tablet (Nitrostat) pain pantoprazole 40 mg tablet,delayed 40 mg PO DAILY 07/13/19 09/14/24 release insulin degludec 100 unit/mL 30 unit SUBCUT DAILY 03/28/20 09/14/24 subcutaneous solution (Tresiba U-100 Insulin) vitamin B complex-vitamin C-folic 1 tab PO DAILY 03/03/22 07/11/23 acid 0.8 mg tablet lanthanum 750 mg chewable tablet 2,250 mg PO TID 07/11/23 09/14/24 vit B,C-folic ac 800 mcg-zinc 12.5 1 tab PO DAILY 07/11/23 09/14/24 mg-selen-D3 2,000 unit-vit E tablet (RenaPlex-D) brinzolamide 1 %-brimonidine 0.2 % 1 drp ophthalmic (eye) DAILY 09/14/24 09/14/24 eye drops,suspension (Simbrinza) citalopram 10 mg tablet 10 mg PO DAILY 09/14/24 09/14/24 cyclobenzaprine 10 mg tablet 10 mg PO TID PRN 09/14/24 09/14/24 furosemide 40 mg tablet (Lasix) 40 mg PO BID 09/14/24 09/14/24 latanoprost 0.005 % eye drops 1 drp ophthalmic (eye) DAILY 09/14/24 09/14/24 minoxidil 2.5 mg tablet 5 mg PO BID 09/14/24 09/14/24 Previous Rx's ?Medication ?Instructions ?Recorded isosorbide mononitrate 30 mg 30 mg PO DAILY #90 tabs 05/21/21 tablet,extended release 24 hr Discontinue Dressing Changes #1 ea 07/16/22 Diabetic shoes with Accomadative #1 ea 08/14/22 Insoles hydrocodone 5 mg-acetaminophen 325 1 - 2 tab PO Q6H PAIN #10 tabs 12/15/23 mg tablet amlodipine 5 mg tablet 5 mg PO DAILY #90 tabs 09/14/24 carvedilol 6.25 mg tablet 6.25 mg PO BID #180 tabs 09/14/24 hydralazine 50 mg tablet 50 mg PO DIRECTED #270 tabs 09/14/24 polyethylene glycol 3350 17 4 g PO DAILY #238 grams 11/23/24 gram/dose oral powder (Miralax) Allergies Allergy/AdvReac Type Severity Reaction Status Date / Time No Known Allergies Allergy Verified 11/23/24 01:55 PFS ED PFSH: Medical History (Updated 11/23/24 @ 04:02 by Andrea Betancourt MD) Hypertension Essential hypertension MSSA bacteremia Infection due to Port-A-Cath Anemia NSTEMI (non-ST elevated myocardial infarction) Hemodialysis access site with arteriovenous graft CAD (coronary artery disease) Hx of staphylococcal infection Chronic back pain Osteoarthritis Fibromyalgia GERD (gastroesophageal reflux disease) CKD (chronic kidney disease) Lumbar disc disease End stage renal disease on dialysis Diabetes mellitus Hypertensive emergency Congestive heart failure ESRD (end stage renal disease) Diabetes mellitus, type II Cardiomyopathy Surgical History Status post insertion of hemodialysis catheter Status post peritoneal dialysis History of coronary artery stent placement S/P tonsillectomy S/P carpal tunnel release H/O circumcision History of cataract surgery Family History Mother Aneurysm Grandmother Cancer Sister Cancer Social History Smoking and tobacco/nicotine status: unknown if used tobacco/nicotine Alcohol intake: never Substance/Drug Use: former 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 Clean since 1991 Lives independently: Yes Household members: none Housing: House Marital status: service: No Current occupational status: disabled Physical Exam Const: COMMON NORMALS: no acute distress, patient oriented x3 and alert HENMT: COMMON NORMALS: normocephalic and atraumatic HEAD & SCALP: normocephalic and atraumatic Eye: COMMON NORMALS: Equal, round and reactive pupils present, EOMs intact bilaterally and no scleral icterus PUPIL: Yes Equal, round and reactive pupils present Resp: COMMON NORMALS: normal respiratory effort and No retractions Cardio: COMMON NORMALS: regular rate, regular rhythm and No murmurs present (Cardio) RATE: regular rate RHYTHM: regular rhythm GI: COMMON NORMALS: Normal to inspection, nondistended, normoactive bowel sounds present and Soft to palpation PALPATION: Yes Soft to palpation OTHER: No obvious increase in tenderness with palpation of any portion of the abdomen. Neuro: COMMON NORMALS: patient oriented x3 SENSORIUM/ORIENTATION: Yes alert Skin: COMMON NORMALS: no rashes or lesions noted GENERAL SKIN EXAM: no rashes or lesions noted Course Vital Signs: Vital signs: Vital Signs Temperature 98.3 F 11/23/24 01:50 Pulse Rate 84 11/23/24 05:06 Respiratory Rate 16 11/23/24 05:06 Blood Pressure 194/92 11/23/24 05:06 Pulse Oximetry 93 11/23/24 05:06 Oxygen Delivery Me thod Nasal Cannula 11/23/24 04:07 Oxygen Flow Rate 2 11/23/24 04:07 MDM - Abdominal Pain Medical Decision Making In summary, patient is a well-appearing 59-year-old male seen for abdominal pain of the left lower quadrant. He has had the same pain multiple times in the past without resolution or clear etiology being found. CT scan shows no acute pathology, however does show a increase stool burden throughout the sigmoid and left colon. I suspect his pain may be due to mild constipation. Pain does appear to be peristaltic come in waves and going away spontaneously. He will be discharged in stable condition with the plan to try MiraLAX. I do not suspect any other emergent process warranting further workup at this time. Lab Data 11/23/24 02:02 11/23/24 02:02 Labs/Radiology: Radiology Impressions Abdomen/Pelvis CT 11/23/24 02:02 IMPRESSION: 1. Thickening of the urinary bladder suspicious for cystitis versus incomplete distension. 2. Stranding around the pancreatic head and duodenum . May represent duodenitis or pancreatitis 3. Increased stool within the colon. No dilated bowel. Laboratory Results WBC 5.57 10^3/uL (3.29-11.43) 11/23/24 02:02 RBC 3.86 10^6/uL (3.85-5.65) 11/23/24 02:02 Hgb 12.30 g/dL (11.27-16.99) 11/23/24 02:02 Hct 37.7 % (37-53) 11/23/24 02:02 MCV 97.7 fl (82-101) 11/23/24 02:02 MCH 31.9 pg (27-33) 11/23/24 02:02 MCHC 32.6 g/dL (30-55) 11/23/24 02:02 RDW 14.5 % (12.1-15.1) 11/23/24 02:02 Plt Count 115 10^3/cmm (157-399) L 11/23/24 02:02 MPV 11.2 fL (7.4-10.4) H 11/23/24 02:02 Neut % (Auto) 70.6 % 11/23/24 02:02 Lymph % (Auto) 13.1 % 11/23/24 02:02 [place] % (Auto) 8.4 % 11/23/24 02:02 Eos % (Auto) 6.1 % 11/23/24 02:02 Baso % (Auto) 1.6 % 11/23/24 02:02 Neut # (Auto) 3.93 10^3/uL (1.8-7.7) 11/23/24 02:02 Lymph # (Auto) 0.7 10^3/uL (0.8-4.8) L 11/23/24 02:02 [place] # (Auto) 0.5 10^3/uL (0.2-0.9) 11/23/24 02:02 Eos # (Auto) 0.3 10^3/uL (0.0-0.8) 11/23/24 02:02 Baso # (Auto) 0.1 10^3/uL (0.0-0.1) 11/23/24 02:02 Nucleated RBC % (auto) 0 % 11/23/24 02:02 Nucleated RBCs # 0.0 /100WBC 11/23/24 02:02 Sodium 141 mmol/L (136-145) 11/23/24 02:02 Potassium 4.9 mmol/L (3.5-5.1) 11/23/24 02:02 Chloride 97 mmol/L (98-107) L 11/23/24 02:02 Carbon Dioxide 28 mmol/L (22-29) 11/23/24 02:02 Anion Gap 20.9 (5-19) H 11/23/24 02:02 BUN 30 mg/dL (6-20) H 11/23/24 02:02 Creatinine 6.5 mg/dL (0.7-1.2) H* 11/23/24 02:02 GFR Calculation 8.8 mL/min (90-130) L 11/23/24 02:02 Glucose 155 mg/dL (65-115) H 11/23/24 02:02 Calculated Osmolality 301 mOsm/kg (285-295) H 11/23/24 02:02 Lactic Acid 1.4 mmol/L (0.5-2.2) 11/23/24 02:02 Calcium 9.8 mg/dL (8.5-10.5) 11/23/24 02:02 Total Bilirubin 1.4 mg/dL (0.15-1.2) H 11/23/24 02:02 AST 33 U/L (0-40) 11/23/24 02:02 ALT 17 U/L (0-41) 11/23/24 02:02 Alkaline Phosphatase 140 U/L (40-130) H 11/23/24 02:02 Total Protein 7.7 g/dL (6.6-8.7) 11/23/24 02:02 Albumin 3.9 g/dL (3.5-5.2) 11/23/24 02:02 Globulin 3.8 g/dL (1.3-4.6) 11/23/24 02:02 Lipase 19 U/L (13-60) 11/23/24 02:02 All radiology interpretation(s) finalized by discharge Discharge Plan Discharge Patient Disposition: Home Clinical Impression: Abdominal pain Condition: Stable Prescriptions: New polyethylene glycol 3350 [Miralax] 17 gram/dose powder 4 g PO DAILY Qty: 238 0RF No Action (DME) Diabetic shoes with Accomadative Insoles See Rx Instructions .Route .MEDSUPPLY Qty: 1 0RF Rx Instructions: As directed by HOME citalopram 10 mg tablet 10 mg PO DAILY cyclobenzaprine 10 mg tablet 10 mg PO TID PRN furosemide [Lasix] 40 mg tablet 40 mg PO BID latanoprost 0.005 % drops 1 drp ophthalmic (eye) DAILY Simbrinza 1-0.2 % drops,suspension 1 drp ophthalmic (eye) DAILY carvedilol 6.25 mg tablet 6.25 mg PO BID Qty: 180 3RF Rx Instructions: must administer with a meal/food hydralazine 50 mg tablet 50 mg PO DIRECTED Qty: 270 3RF Rx Instructions: take 1 tab three times daily, if systolic blood pressure is above 170 after 3 hours of taking medication take an extra tab amlodipine 5 mg tablet 5 mg PO DAILY Qty: 90 3RF isosorbide mononitrate 30 mg tablet extended release 24 hr 30 mg PO DAILY Qty: 90 3RF (DME) Discontinue Dressing Changes See Rx Instructions .Route .MEDSUPPLY Qty: 1 0RF Rx Instructions: Please discontinue dressing changes as patient is healed. Thank you pantoprazole 40 mg Tablet,Delayed Release (Dr/Ec) 40 mg PO DAILY nitroglycerin [Nitrostat] 0.4 mg Tablet, Sublingual 0.4 mg SUBLINGUAL Q5M PRN (Reason: chest pain) Tresiba U-100 Insulin 100 unit/mL solution 30 unit SUBCUT DAILY B complex-vitamin C-folic acid 0.8 mg Tablet 1 tab PO DAILY minoxidil 2.5 mg tablet 5 mg PO BID lanthanum 750 mg tablet,chewable 2,250 mg PO TID RenaPlex-D 800 mcg-12.5 mg -2,000 unit tablet 1 tab PO DAILY hydrocodone-acetaminophen 5-325 mg tablet 1 - 2 tab PO Q6H Qty: 10 0RF Rx Instructions: MAX 6 PER DAY Discharge Orders: Discharge ED (Routine); Ordered 11/23/24 Ordered By: Andrea Betancourt Referrals: Sandy Kelly MD [Primary Care Provider, Internal Medicine] Discharge Diet: Advance as tolerated Discharge Activity: Increase activity as tolerated Patient Instructions: Constipation (ED), Abdominal Pain (ED) Activity Restrictions/Additional Instructions: Your blood tests are reassuring. Your CT scan showed abundant stool throughout the left colon where you have the pain. I suspect that if you were to take MiraLAX and help evacuate your bowels the pain would improve significantly. Please take a dose of MiraLAX every day to keep your bowels better regulated and keep the constipation away Print Language: Urdu Coding Level of Care Code ED Custodian for Thomas Keen
[2024-11-23 04:07] VITALS: BP 209/100; PULSE 91; RESP 16; O2SAT 93
[2024-11-23 05:06] VITALS: BP 194/92; PULSE 84; RESP 16; O2SAT 93
== END 2024-11-23 05:08 | disposition home or self-care (01) ==
PROVIDERS: Emergency Provider Student in an Organized Health Care Education/Training Program; PCP Internal Medicine
DX: R10.9 Unspecified abdominal pain (principal); I25.10 Atherosclerotic heart disease of native coronary artery without angina pectoris; E11.22 Type 2 diabetes mellitus with diabetic chronic kidney disease; I13.2 Hypertensive heart and chronic kidney disease with heart failure and with stage 5 chronic kidney disease, or end stage renal disease; I50.9 Heart failure, unspecified; N18.6 End stage renal disease; Z99.2 Dependence on renal dialysis
CPT/HCPCS: 36415; 74176; 80053; 83605; 83690; 85025; 96374; 96376; 99285; J2270

== ENCOUNTER 2024-12-07 07:21 | Inpatient (IN) | payer MEDICARE, MEDICAID, SELFPAY ==
[2024-12-07] VITALS (11 sets, daily range): BP systolic 183–205; BP diastolic 87–94; PULSE 73–92; RESP 16–18; TEMP 36.4–36.8; O2SAT 0–95; BMI 35.2; BMI 35.5
--- NOTE | 2024-12-07 08:09 | XRR_ITS ---
PROCEDURE INFORMATION: Exam: XR Chest Exam date and time: 12/07/2024 9:15 AM Age: 59 years old Clinical indication: Cough and dyspnea; Additional info: Dyspnea/cough TECHNIQUE: Imaging protocol: Radiologic exam of the chest. Views: 1 view. Total images: 1 COMPARISON: CR XR chest 1V portable [id number] 06/01/2023 1:55 AM FINDINGS: Lungs: No acute focal pulmonary opacities are detected. Pleural spaces: Unremarkable. No pleural effusion. No pneumothorax. Heart/Mediastinum: Heart is enlarged but stable when compared to the prior exam. Bones/joints: [place] right spinal scoliosis. XR/XR chest 1V portable [id number] IMPRESSION: 1. Heart is enlarged but stable when compared to the prior exam. 2. No acute focal pulmonary opacities are detected.
--- NOTE | 2024-12-07 08:15 | W.ED.BACK ---
HPI - Back Pain/Injury General: Chief Complaint: Back Pain/Injury Stated Complaint: Back Pain Time Seen by Provider: 12/07/24 07:26 History of Present Illness: 59-year-old male who presents to the emergency room with complaints of low back pain. He did some lifting and bending moving some cat litter around yesterday but not been excessively significant weights. He has had problems with back pain in the past. He also complained of some shortness of breath this been a chronic longstanding issue. Reviewing his chart he does have a habit of heart failure issues and some mild reduced left ventricular ejection fraction. He has not had any fever sweats or chills. He does still make some urine he denies any dysuria urgency or frequency. No change in bowel habits. He has not taken anything for the pain in his back to this point. Associated symptoms: Deny abdominal pain, chills, dysuria, fever(s) or urinary urgency Related Data Home Medications ?Medication ?Instructions ?Recorded ?Confirmed nitroglycerin 0.4 mg sublingual 0.4 mg sublingual Q5M PRN chest 07/13/19 09/14/24 tablet (Nitrostat) pain pantoprazole 40 mg tablet,delayed 40 mg PO DAILY 07/13/19 09/14/24 release insulin degludec 100 unit/mL 30 unit SUBCUT DAILY 03/28/20 09/14/24 subcutaneous solution (Tresiba U-100 Insulin) vitamin B complex-vitamin C-folic 1 tab PO DAILY 03/03/22 07/11/23 acid 0.8 mg tablet lanthanum 750 mg chewable tablet 2,250 mg PO TID 07/11/23 09/14/24 vit B,C-folic ac 800 mcg-zinc 12.5 1 tab PO DAILY 07/11/23 09/14/24 mg-selen-D3 2,000 unit-vit E tablet (RenaPlex-D) brinzolamide 1 %-brimonidine 0.2 % 1 drp ophthalmic (eye) DAILY 09/14/24 09/14/24 eye drops,suspension (Simbrinza) citalopram 10 mg tablet 10 mg PO DAILY 09/14/24 09/14/24 cyclobenzaprine 10 mg tablet 10 mg PO TID PRN 09/14/24 09/14/24 furosemide 40 mg tablet (Lasix) 40 mg PO BID 09/14/24 09/14/24 latanoprost 0.005 % eye drops 1 drp ophthalmic (eye) DAILY 09/14/24 09/14/24 minoxidil 2.5 mg tablet 5 mg PO BID 09/14/24 09/14/24 Previous Rx's ?Medication ?Instructions ?Recorded isosorbide mononitrate 30 mg 30 mg PO DAILY #90 tabs 05/21/21 tablet,extended release 24 hr Discontinue Dressing Changes #1 ea 07/16/22 Diabetic shoes with Accomadative #1 ea 08/14/22 Insoles hydrocodone 5 mg-acetaminophen 325 1 - 2 tab PO Q6H PAIN #10 tabs 12/15/23 mg tablet amlodipine 5 mg tablet 5 mg PO DAILY #90 tabs 09/14/24 carvedilol 6.25 mg tablet 6.25 mg PO BID #180 tabs 09/14/24 hydralazine 50 mg tablet 50 mg PO DIRECTED #270 tabs 09/14/24 polyethylene glycol 3350 17 4 g PO DAILY #238 grams 11/23/24 gram/dose oral powder (Miralax) Allergies Allergy/AdvReac Type Severity Reaction Status Date / Time No Known Allergies Allergy Verified 11/23/24 01:55 Review of Systems Const: Denies: fever(s) or chills Card: Denies: chest pain Resp: Denies: dyspnea GI: Denies: abdominal pain : Denies: dysuria, urinary frequency or urinary urgency Musc: Denies: neck pain or back pain Skin/Breast: Denies: rash PFSH ED PFSH: Medical History Hypertension Essential hypertension MSSA bacteremia Infection due to Port-A-Cath Anemia NSTEMI (non-ST elevated myocardial infarction) Hemodialysis access site with arteriovenous graft CAD (coronary artery disease) Hx of staphylococcal infection Chronic back pain Osteoarthritis Fibromyalgia GERD (gastroesophageal reflux disease) CKD (chronic kidney disease) Lumbar disc disease End stage renal disease on dialysis Diabetes mellitus Hypertensive emergency Congestive heart failure ESRD (end stage renal disease) Diabetes mellitus, type II Cardiomyopathy Surgical History Status post insertion of hemodialysis catheter Status post peritoneal dialysis History of coronary artery stent placement S/P tonsillectomy S/P carpal tunnel release H/O circumcision History of cataract surgery Family History Mother Aneurysm Grandmother Cancer Sister Cancer Social History Smoking and tobacco/nicotine status: unknown if used tobacco/nicotine Alcohol intake: never Substance/Drug Use: former 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 Clean since 1991 Lives independently: Yes Household members: none Housing: House Marital status: service: No Current occupational status: disabled Physical Exam Const: GENERAL APPEARANCE: cooperative ORIENTATION/CONSCIOUSNESS: Yes awake, Yes oriented to person, Yes oriented to place and Yes oriented to time HENMT: COMMON NORMALS: normocephalic, atraumatic and hearing grossly normal bilaterally HEAD & SCALP: normocephalic and atraumatic Resp: COMMON NORMALS: normal respiratory effort, No retractions, No use of accessory muscles and clear to auscultation bilaterally AUSCULTATION: clear to auscultation bilaterally Cardio: COMMON NORMALS: regular rate, regular rhythm and No murmurs present (Cardio) RATE: regular rate RHYTHM: regular rhythm GI: COMMON NORMALS: Soft to palpation and No hepatosplenomegaly present AUSCULTATION: Yes normoactive bowel sounds PALPATION: Yes Soft to palpation, No Tenderness to palpation present (GI), No Guarding due to palpation present (GI) and Yes No hepatosplenomegaly present Extremity: COMMON NORMALS: normal to inspection, capillary refill normal, no clubbing, cyanosis or edema, no calf tenderness and no pedal edema Neuro: SENSORIUM/ORIENTATION: Yes oriented to person, Yes oriented to place and Yes oriented to time OTHER: Dorsal and plantarflexion strength 5 out of 5 sensation lower extremities normal straight leg raising unable to establish because patient in severe pain. Skin: COMMON NORMALS: no rashes or lesions noted GENERAL SKIN EXAM: no rashes or lesions noted Course Vital Signs: Vital signs: Vital Signs Temperature 98.3 F 12/08/24 12:20 Pulse Rate 75 12/08/24 12:20 Respiratory Rate 16 12/08/24 12:20 Blood Pressure 180/73 12/08/24 12:20 Pulse Oximetry 90 12/08/24 12:20 Oxygen Delivery Me thod Room Air 12/08/24 12:20 Oxygen Flow Rate 2 12/07/24 10:16 MDM - Back Pain/Injury Medical Decision Making Laboratory test unremarkable extensive efforts made to get the patient ambulate due to pain he was not able to ambulate or move in discussing with him he has been walking around his home using either a cane along with the huerta or a counter to keep from falling after yesterday he can no longer even accomplish this. His pain is such as him difficult for him to sit at the bedside. We did have a physical therapy evaluation he was not able to manage. CT did not show any acute changes but does show a lot of chronic changes including some stenosis. Reviewed with the radiologist. She does not feel there is any radiographic signs of cauda equina and there is certainly is not on physical exam at this time. Will place patient observation for pain control. Medical Records I reviewed the patient's medical records. Labs I reviewed the patient's lab results. 12/07/24 09:25 12/08/24 09:16 Radiology Impressions Chest X-Ray 12/07/24 08:09 IMPRESSION: 1. Heart is enlarged but stable when compared to the prior exam. 2. No acute focal pulmonary opacities are detected. ADDENDUM: 12/07/24 [id number] ADDENDUM: COMPARISON MORE: CT abdomen pelvis con [id number] 11/23/2024 2:[address] 12/07/24 11:06 IMPRESSION: 1. Advanced lumbar spondylosis with scoliosis. 2. Multilevel areas of central and foraminal stenosis as noted on the prior CT. 3. Bar moderate to severe bilateral foraminal stenosis at L5-S1 due to disc osteophyte disease. 4. L4-5: Severe LEFT foraminal stenosis and mild on the RIGHT. 5. L3-4: Moderate LEFT foraminal stenosis. 6. L2-3: Disc protrusion encroaching upon the RIGHT subarticular recess and traversing L3 nerve root. 7. Moderate RIGHT foraminal stenosis at L1-2. 8. No acute lumbar spine fracture. Laboratory Results WBC 7.64 10^3/uL (3.29-11.43) 12/07/24 09:25 RBC 3.75 10^6/uL (3.85-5.65) L 12/07/24 09:25 Hgb 12.00 g/dL (11.27-16.99) 12/07/24 09:25 Hct 36.8 % (37-53) L 12/07/24 09:25 MCV 98.1 fl (82-101) 12/07/24 09:25 MCH 32.0 pg (27-33) 12/07/24 09: MCHC 32.6 g/dL (30-55) 12/07/24 09: RDW 14.7 % (12.1-15.1) 12/07/24 09:25 Plt Count 102 10^3/cmm (157-399) L 12/07/24 09:25 MPV 10.9 fL (7.4-10.4) H 12/07/24 09:25 Neut % (Auto) 79.7 % 12/07/24 09: Lymph % (Auto) 8.2 % 12/07/24 09: [place] % (Auto) 10.9 % 12/07/24 09:25 Eos % (Auto) 0.0 % 12/07/24 09:25 Baso % (Auto) 0.7 % 12/07/24 09:25 Neut # (Auto) 6.09 10^3/uL (1.8-7.7) 12/07/24 09: Lymph # (Auto) 0.6 10^3/uL (0.8-4.8) L 12/07/24 09:25 [place] # (Auto) 0.8 10^3/uL (0.2-0.9) 12/07/24 09:25 Eos # (Auto) 0.0 10^3/uL (0.0-0.8) 12/07/24 09:25 Baso # (Auto) 0.1 10^3/uL (0.0-0.1) 12/07/24 09: Nucleated RBC % (auto) 0 % 12/07/24 09: Nucleated RBCs # 0.0 /100WBC 12/07/24 09:25 Sodium 134 mmol/L (136-145) L 12/08/24 09:16 Potassium 5.1 mmol/L (3.5-5.1) 12/08/24 09:16 Chloride 91 mmol/L (98-107) L 05/28/25 09:16 Carbon Dioxide 23 mmol/L (22-29) 12/08/24 09:16 Anion Gap 25.1 (5-19) H 12/08/24 09:16 BUN 73 mg/dL (6-20) H 12/08/24 09:16 Creatinine 8.5 mg/dL (0.7-1.2) H* 12/08/24 09:16 GFR Calculation 6.5 mL/min (90-130) L 12/08/24 09:16 Glucose 277 mg/dL (65-115) H 12/08/24 09:16 POC Glucose 259 mg/dL (70-110) H 12/08/24 06:27 Calculated Osmolality 309 mOsm/kg (285-295) H 12/08/24 09:16 Calcium 9.7 mg/dL (8.5-10.5) 12/08/24 09:16 Total Bilirubin 1.7 mg/dL (0.15-1.2) H 12/07/24 09:25 AST 26 U/L (0-40) 12/07/24 09:25 ALT 14 U/L (0-41) 12/07/24 09:25 Alkaline Phosphatase 114 U/L (40-130) 12/07/24 09:25 Total Protein 7.7 g/dL (6.6-8.7) 12/07/24 09:25 Albumin 3.8 g/dL (3.5-5.2) 12/07/24 09:25 Globulin 3.9 g/dL (1.3-4.6) 12/07/24 09:25 Urine Color Yellow (Yellow) 12/07/24 12:08 Urine Appearance Clear (CLEAR) 12/07/24 12:08 Urine pH 8.5 (5-7) A 12/07/24 12:08 Ur Specific [place] 1.013 (1.005-1.030) 12/07/24 12:08 Urine Protein 4+ (Negative) A 12/07/24 12:08 Urine Glucose (UA) 1+ (Normal) H 12/07/24 12:08 Urine Ketones Trace (Negative) 12/07/24 12:08 Urine Blood Trace (Negative) A 12/07/24 12:08 Urine Nitrate Negative (Negative) 12/07/24 12:08 Urine Bilirubin Negative (Negative) 12/07/24 12:08 Urine Urobilinogen 0.2 mg/dL (Negative) 12/07/24 12:08 Ur Leukocyte Esterase Negative (Negative) 12/07/24 12:08 Urine RBC 6-10 /hpf (0-2) 12/07/24 12:08 Urine WBC 0-5 /hpf (0-5) 12/07/24 12:08 Ur Squamous Epith Cells 0-5 /hpf (0-5) 12/07/24 12:08 Amorphous Sediment Not Reportable 12/07/24 12:08 Urine Bacteria None seen /hpf (NONE) 12/07/24 12:08 Hyaline Casts 2.46 /lpf 12/07/24 12:08 Urine Sperm 1+ /hpf 12/07/24 12:08 Hep Bs Antigen Non-reactive (Nonreactive) 12/07/24 09:25 Hep Bs Antibody 626.6 (11.5-1000) 12/07/24 09:25 Hepatitis C Antibody Reactive (Nonreactive) H 12/07/24 09:25 All radiology interpretation(s) finalized by discharge Discharge Plan Discharge Patient Disposition: Admitted As Inpatient Admit Provider: José Luis Gonzalez Clinical Impression: Lumbar radiculopathy, Hypertension, Cardiomyopathy, End stage renal disease on dialysis, Lumbar disc disease Condition: Stable Coding Level of Care Code ED Open Hearth Helper for Thomas Keen
[2024-12-07] MEDS: orphenadrine 30 mg/mL Inj 2 mL 60 MG IM (09:07)
[2024-12-07] MEDS: morphine 4 mg/mL SDV 1 mL IVP ×2 (09:10→10:16)
[2024-12-07] MEDS: dexamethasone 10 mg/mL INJ IVP (09:10)
[2024-12-07] MEDS: ketorolac 30 mg/mL INJ 15 MG IVP (09:11)
[2024-12-07 09:33] LABS: Basophils # 0.1 10^3/uL (0.0-0.1); Basophils % 0.7 %; Hematocrit 36.8 % (37-53); Lymphocytes # 0.6 10^3/uL (0.8-4.8); Lymphocytes % 8.2 %; Mean Corpuscular HGB Conc 32.6 g/dL (30-55); Mean Corpuscular Volume 98.1 fl (82-101); Mean Platelet Volume 10.9 fL (7.4-10.4); Monocytes # 0.8 10^3/uL (0.2-0.9); Monocytes % 10.9 %; Neutrophils # 6.09 10^3/uL (1.8-7.7); Neutrophils % 79.7 %; Nucleated Red Blood Cells % 0 %; Platelet Count 102 10^3/cmm (157-399); Red Blood Count 3.75 10^6/uL (3.85-5.65); Red Cell Distribution Width 14.7 % (12.1-15.1); White Blood Count 7.64 10^3/uL (3.29-11.43)
[2024-12-07 09:49] LABS: Alanine Aminotransferase 14 U/L (0-41); Albumin Level 3.8 g/dL (3.5-5.2); Alkaline Phosphatase 114 U/L (40-130); Anion Gap 21.8 (5-19); Aspartate Amino Transferase 26 U/L (0-40); Blood Urea Nitrogen 43 mg/dL (6-20); Calcium 9.8 mg/dL (8.5-10.5); Carbon Dioxide 26 mmol/L (22-29); Chloride 93 mmol/L (98-107); Creatinine Clr Calc Pharmacy 15.2827; Globulin 3.9 g/dL (1.3-4.6); Glomerular Filtration Rate 8.2 mL/min (90-130); Glucose 149 mg/dL (65-115); Osmolality Calculated 296 mOsm/kg (285-295); Potassium 4.8 mmol/L (3.5-5.1); Sodium 136 mmol/L (136-145); Total Bilirubin 1.7 mg/dL (0.15-1.2); Total Protein 7.7 g/dL (6.6-8.7)
--- NOTE | 2024-12-07 11:06 | CT_ITS ---
WS: [id number] CT LUMBAR SPINE, noncontrast. HISTORY: pain TECHNIQUE: Contiguous 2.0 mm axial imaging are performed. Sagittal and coronal reformats are submitted and reviewed. All CT scans at [facility] use at least one of these dose optimization techniques: automated exposure control; mA and/or kV adjustment per patient size (includes targeted exams where dose is matched to clinical indication); or iterative reconstruction. IV contrast: None DLP: 1324.78 mGy.cm COMPARISON: 04/10/2019 LEFT curvature lumbar spine with asymmetric disc space narrowing. Large endplate osteophytes at all levels. Vacuum disc phenomenon at L1-2 through L3-4. Disc spaces are all narrowed. No fracture. L1-2: Osteophytic ridging and asymmetric disc bulging to the RIGHT. Moderate RIGHT foraminal stenosis and mild central stenosis. L2-3: Diffuse osteophytic ridging with marked annular disc bulging. Disc encroaching upon the RIGHT subarticular recess. Disc osteophyte narrowing the foramina. Most significant disc contact on the RIGHT traversing L3 nerve root. L3-4: Diffuse osteophytic ridging with annular disc bulging. No central stenosis. Mild RIGHT and moderate LEFT foraminal stenosis. L4-5: Diffuse osteophytic ridging with disc bulging. Disc osteophyte causing severe narrowing of the LEFT foramen and mild on the RIGHT. L5-S1: Osteophytic ridging. Annular disc bulging. Central disc protrusion. Moderate to severe bilateral foraminal stenosis due to disc osteophyte disease. No sacral abnormalities. Vascular calcifications. Splenic artery calcifications. Kidneys are atrophied with acquired renal cysts. CT/CT lumbar spine wo con* [id number] IMPRESSION: 1. Advanced lumbar spondylosis with scoliosis. 2. Multilevel areas of central and foraminal stenosis as noted on the prior CT . 3. Bar moderate to severe bilateral foraminal stenosis at L5-S1 due to disc os teophyte disease. 4. L4-5: Severe LEFT foraminal stenosis and mild on the RIGHT. 5. L3-4: Moderate LEFT foraminal stenosis. 6. L2-3: Disc protrusion encroaching upon the RIGHT subarticular recess and tr aversing L3 nerve root. 7. Moderate RIGHT foraminal stenosis at L1-2. 8. No acute lumbar spine fracture.
[2024-12-07] MEDS: HYDROmorphone 0.5 MG/0.5 ML INJ IVP (12:06)
[2024-12-07 12:17] LABS: Bilirubin Urine Negative (Negative); Blood Urine Trace (Negative); Glucose Urine UA 1+ (Normal); Ketones Urine Trace (Negative); Leukocyte Esterase Urine Negative (Negative); Nitrate Urine Negative (Negative); Protein Urine 4+ (Negative); Specific Gravity, Urine 1.013 (1.005-1.030); Urine Appearance Clear (CLEAR); Urine Color Yellow (Yellow); Urobilinogen Urine 0.2 mg/dL (Negative); pH Urine 8.5 (5-7)
[2024-12-07 12:33] LABS: Add Urine Microscopic? YES; Bacteria Urine None Seen /hpf; Hyaline Casts Urine 2.46 /lpf; Squamous Epithelial Cell Urine 0-5 /hpf (0-5); WBC Urine 0-5 /hpf (0-5)
[2024-12-07 12:42] LABS: Sperm Urine 1+ /hpf; UA Slide Review UA Slide Review Perf
--- NOTE | 2024-12-07 16:29 | PM.HP ---
Providers/Chief Complaint Admitting Physician: José Luis Gonzalez MD Primary Care Provider: Sandy Kelly MD Chief Complaint: Back Pain History of Present Illness Kt Jett is a 59 year old male with a past medical history of end-stage renal disease on dialysis, hypertension, CAD, fibromyalgia, lumbar disc disease, type 2 diabetes mellitus, who presents [facility] due to intractable back pain. Currently patient sitting up beside the bed, complaining of intractable back pain, he tells me he has chronic back pain, with pain in his lower back rating down the bilateral legs, he is on hydrocodone 10 1 to 2 tablets every 6 hours at home, he does tell me that he regular chores yesterday, emptying his cat litter, nothing excessive, no car accident, but today he started developing severe acute intractable back pain, pain with any movement, no clicking, no popping no urinary incontinence, bowel incontinence no saddle or perianal anesthesia, no fevers,. He has been given steroids, several doses of narcotics including morphine and Dilaudid, Norflex without improvement of his pain. Continues to rate his pain 7 out of 10, sitting up to the side of the bed, as he cannot lie down, he is hesitant about any movement due to severe intractable pain. Hospitalist team was called for pain management of severe intractable back pain. He tells me that chronically his back pain does radiate down bilateral lower extremities, he has never had any back surgeries, no history of injections, he is home hydrocodone 10 1 to 2 tablets every 6 hours is not helping with his pain at home, he uses the medication as prescribed Review of Systems Const: Denies: fever(s) Eyes: Denies: change in vision Card: Denies: chest pain Neuro: Reports: numbness in extremities and weakness in extremities; Denies: headache(s) Medications/Allergies Home Medications ?Medication ?Instructions ?Recorded ?Confirmed ?Last Taken ?Type nitroglycerin 0.4 mg sublingual 0.4 mg sublingual Q5M PRN chest 07/13/19 09/14/24 Unknown History tablet (Nitrostat) pain pantoprazole 40 mg tablet,delayed 40 mg PO DAILY 07/13/19 09/14/24 07/09/23 History release insulin degludec 100 unit/mL 30 unit SUBCUT DAILY 03/28/20 09/14/24 07/09/23 History subcutaneous solution (Tresiba U-100 Insulin) isosorbide mononitrate 30 mg 30 mg PO DAILY #90 tabs 05/21/21 09/14/24 07/09/23 Rx tablet,extended release 24 hr vitamin B complex-vitamin C-folic 1 tab PO DAILY 03/03/22 07/11/23 07/09/23 History acid 0.8 mg tablet Discontinue Dressing Changes #1 ea 07/16/22 07/11/23 Unknown Rx Diabetic shoes with Accomadative #1 ea 08/14/22 07/11/23 Unknown Rx Insoles lanthanum 750 mg chewable tablet 2,250 mg PO TID 07/11/23 09/14/24 07/09/23 History vit B,C-folic ac 800 mcg-zinc 12.5 1 tab PO DAILY 07/11/23 09/14/24 07/09/23 History mg-selen-D3 2,000 unit-vit E tablet (RenaPlex-D) hydrocodone 5 mg-acetaminophen 325 1 - 2 tab PO Q6H PAIN #10 tabs 12/15/23 09/14/24 07/09/23 Rx mg tablet amlodipine 5 mg tablet 5 mg PO DAILY #90 tabs 09/14/24 09/14/24 Unknown Rx brinzolamide 1 %-brimonidine 0.2 % 1 drp ophthalmic (eye) DAILY 09/14/24 09/14/24 Unknown History eye drops,suspension (Simbrinza) carvedilol 6.25 mg tablet 6.25 mg PO BID #180 tabs 09/14/24 09/14/24 Unknown Rx citalopram 10 mg tablet 10 mg PO DAILY 09/14/24 09/14/24 Unknown History cyclobenzaprine 10 mg tablet 10 mg PO TID PRN 09/14/24 09/14/24 Unknown History furosemide 40 mg tablet (Lasix) 40 mg PO BID 09/14/24 09/14/24 Unknown History hydralazine 50 mg tablet 50 mg PO DIRECTED #270 tabs 09/14/24 09/14/24 Unknown Rx latanoprost 0.005 % eye drops 1 drp ophthalmic (eye) DAILY 09/14/24 09/14/24 Unknown History minoxidil 2.5 mg tablet 5 mg PO BID 09/14/24 09/14/24 Unknown History polyethylene glycol 3350 17 4 g PO DAILY #238 grams 11/23/24 Unknown Rx gram/dose oral powder (Miralax) Allergies Allergy/AdvReac Type Severity Reaction Status Date / Time No Known Allergies Allergy Verified 11/23/24 01:55 PFSH Acute PFSH: Medical History Hypertension Essential hypertension MSSA bacteremia Infection due to Port-A-Cath Anemia NSTEMI (non-ST elevated myocardial infarction) Hemodialysis access site with arteriovenous graft CAD (coronary artery disease) Hx of staphylococcal infection Chronic back pain Osteoarthritis Fibromyalgia GERD (gastroesophageal reflux disease) CKD (chronic kidney disease) Lumbar disc disease End stage renal disease on dialysis Diabetes mellitus Hypertensive emergency Congestive heart failure ESRD (end stage renal disease) Diabetes mellitus, type II Cardiomyopathy Surgical History Status post insertion of hemodialysis catheter Status post peritoneal dialysis History of coronary artery stent placement S/P tonsillectomy S/P carpal tunnel release H/O circumcision History of cataract surgery Family History Mother Aneurysm Grandmother Cancer Sister Cancer Social History Smoking and tobacco/nicotine status: unknown if used tobacco/nicotine Alcohol intake: never Substance/Drug Use: former 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 Clean since 1991 Lives independently: Yes Household members: none Housing: House Marital status: service: No Current occupational status: disabled Vitals/I&O/Wt Last Vital Signs Temp 98.2 F 12/07/24 07:23 Pulse 74 12/07/24 12:09 Resp 18 12/07/24 07:23 BP 205/94 12/07/24 12:09 Pulse Ox 88 L 12/07/24 12:09 O2 Del Method Room Air 12/07/24 12:09 O2 Flow Rate 2 12/07/24 10:16 Weight last 48 hrs Weight 117.934 kg Physical Exam Const: COMMON NORMALS: no acute distress and patient oriented x3 HENMT: COMMON NORMALS: normocephalic HEAD & SCALP: normocephalic Resp: COMMON NORMALS: normal respiratory effort, No retractions, No use of accessory muscles and clear to auscultation bilaterally AUSCULTATION: clear to auscultation bilaterally Cardio: COMMON NORMALS: no JVD, regular rate, regular rhythm, S1 normal heart sound present and S2 normal heart sound present RATE: regular rate RHYTHM: regular rhythm HEART SOUNDS: S1 normal heart sound present and S2 normal heart sound present GI: COMMON NORMALS: Normal to inspection, nondistended, normoactive bowel sounds present, Soft to palpation and non-tender Extremity: COMMON NORMALS: no calf tenderness and no pedal edema Neuro: COMMON NORMALS: patient oriented x3, CN's II-XII intact bilaterally and moves all extremities Psych: COMMON NORMALS: mental status grossly normal Data 12/07/24 09:25 12/07/24 09:25 A&P Assessment and plan (1) Diabetes mellitus, type II: (2) ESRD (end stage renal disease): (3) Intractable back pain: (4) Acute back pain: Plan Acute intractable back pain - CT lumbar spine CT/CT lumbar spine wo con* [id number] IMPRESSION: 1. Advanced lumbar spondylosis with scoliosis. 2. Multilevel areas of central and foraminal stenosis as noted on the prior CT. 3. Bar moderate to severe bilateral foraminal stenosis at L5-S1 due to disc osteophyte disease. 4. L4-5: Severe LEFT foraminal stenosis and mild on the RIGHT. 5. L3-4: Moderate LEFT foraminal stenosis. 6. L2-3: Disc protrusion encroaching upon the RIGHT subarticular recess and traversing L3 nerve root. 7. Moderate RIGHT foraminal stenosis at L1-2. 8. No acute lumbar spine fracture. - No urinary continence, no bowel incontinence, no saddle or perianal anesthesia, no fevers - Plan - Dilaudid 1 mg IV push every 4 hours as needed - Soma 350 mg every 8 hours as needed - Monitor respiratory status closely, monitor mentation closely - Narcan - Decadron 6 mg IV push every 24 hours - MRI lumbar spine Type 2 diabetes mellitus - Takes Tresiba 30 units subcu daily - Switch to Lantus 20 units subcu daily, moderate dose sliding scale Full code - Lovenox for DVT prophylaxis - Patient is a [employer] and does not accept blood or blood products PDMP PDMP Reviewed: Last Reviewed 12/07/24 15:50 by José Luis Gonzalez MD Attestations Medical Necessity Statement*: Patient requires hospitalization, outpatient with observation, for acute intractable back pain Diagnoses Type 2 diabetes mellitus with chronic kidney disease on chronic dialysis, unspecified whether superintendent terminal insulin use E11.22; N18.6; Z99.2 Diabetes mellitus superintendent terminal insulin use: unspecified superintendent terminal insulin use status Diabetes mellitus complication status: with kidney complications Diabetes mellitus complication detail: with chronic kidney disease Chronic kidney disease stage: on chronic dialysis ESRD (end stage renal disease) N18.6 Intractable back pain M54.9 Acute back pain M54.9
[2024-12-07] MEDS: cloNIDine 0.1 mg Tablet PO (18:12)
[2024-12-07] MEDS: pantoprazole 40 mg SDV IVP (20:41)
[2024-12-07] MEDS: carvedilol 6.25 mg Tablet PO (20:41)
[2024-12-07] MEDS: HYDROmorphone 0.5 MG/0.5 ML INJ 1 MG IVP (20:49)
[2024-12-07 21:05] LABS: Glucose Point of Care 416 mg/dL (70-110)
[2024-12-07] MEDS: insulin lispro 100 unit/1 mL SUBCUT (21:29)
[2024-12-08] VITALS (11 sets, daily range): BP systolic 150–209; BP diastolic 69–100; PULSE 64–77; RESP 16–20; TEMP 36.3–36.9; O2SAT 90–98
[2024-12-08] MEDS: cloNIDine 0.1 mg Tablet PO ×2 (01:07→18:06)
[2024-12-08 01:15] LABS: Glucose Point of Care 331 mg/dL (70-110)
[2024-12-08] MEDS: dexamethasone 10 mg/mL INJ 6 MG IVP (03:07)
[2024-12-08] MEDS: HYDROmorphone 0.5 MG/0.5 ML INJ 1 MG IVP ×2 (03:08→10:33)
[2024-12-08] MEDS: cyclobenzaprine 10 mg Tablet PO ×2 (03:08→10:33)
[2024-12-08 06:30] LABS: Glucose Point of Care 259 mg/dL (70-110)
--- NOTE | 2024-12-08 09:00 | MR_ITS ---
WS: [id number] MRI LUMBAR SPINE NONCONTRAST TECHNIQUE: Sagittal T1, T2 and STIR imaging. Axial T1 and T2 imaging. CLINICAL INFORMATION: acute low back pain COMPARISON: None. FINDINGS: Lumbar curve. No acute compression. No high-grade central canal stenosis. Thoracolumbar scoliosis. L1-L2: Mild disc bulging. Slight effacement of the ventral thecal sac. Mild facet arthropathy. Narrowing of the RIGHT subarticular recess. Mild bilateral foraminal narrowing. L2-L3: Mild annular bulging. Narrowing of the subarticular recess bilaterally. Moderate facet arthropathy. Mild RIGHT foraminal narrowing. L3-L4: Mild annular bulging. Slight effacement of the ventral thecal sac. Moderate facet arthropathy. Mild RIGHT foraminal narrowing. L4-L5: Mild disc osteophyte complex. Moderate to severe LEFT bony foraminal narrowing. RIGHT foramen is patent. Moderate facet arthropathy. Narrowing of the LEFT subarticular recess. L5-S1: Shallow central protrusion with slight effacement of the ventral thecal sac. Central protrusion contacts the RIGHT greater than LEFT S1 nerve roots. Severe LEFT and moderate RIGHT foraminal narrowing. Moderate facet arthropathy. Small amount of presacral soft tissue edema likely reactive or inflammatory. No fluid collections. MR/MR lumbar spine wo con* [id number] IMPRESSION: Exam is somewhat limited due to body habitus and thoracolumbar scol iosis. 1. Thoracolumbar scoliosis. No acute compression fractures. 2. No high-grade central canal stenosis. 3. Moderate to severe LEFT L4-5 and LEFT L5-S1 bony foraminal narrowing. 4. Shallow central and RIGHT paracentral protrusion L5-S1 with slight contact of the RIGHT S1 nerve root. 5. Narrowing of the RIGHT subarticular recess L1-2 and RIGHT L2-3.
--- NOTE | 2024-12-08 09:16 | PM.CONSULT ---
Providers/Reason For Consult Consulting Physician/Specialty*: [facility]a/Nephrology Reason for Consult*: ESRD Attending Physician: José Luis Gonzalez MD Primary Care Provider: Sandy Kelly MD History of Present Illness History of Present Illness Kt Jett is a 59 year old male Patient is a 59-year-old male with past medical history of end-stage renal disease on dialysis per Friday, hypertension, coronary artery disease diabetes presented due to intractable low back pain. His last dialysis was on Friday. Vital signs stable and lab data reviewed. Review of Systems Narrative: negative Medications/Allergies Home Medications ?Medication ?Instructions ?Recorded ?Confirmed ?Last Taken ?Type pantoprazole 40 mg tablet,delayed 40 mg PO DAILY 07/13/19 12/08/24 12/07/24 History release vitamin B complex-vitamin C-folic 1 tab PO DAILY 03/03/22 12/08/24 12/07/24 History acid 0.8 mg tablet Discontinue Dressing Changes #1 ea 07/16/22 12/08/24 Unknown Rx Diabetic shoes with Accomadative #1 ea 08/14/22 12/08/24 Unknown Rx Insoles vit B,C-folic ac 800 mcg-zinc 12.5 1 tab PO DAILY 07/11/23 12/08/24 12/07/24 History mg-selen-D3 2,000 unit-vit E tablet (RenaPlex-D) hydrocodone 5 mg-acetaminophen 325 1 - 2 tab PO Q6H PAIN #10 tabs 12/15/23 12/08/24 12/07/24 Rx mg tablet amlodipine 5 mg tablet 5 mg PO DAILY #90 tabs 09/14/24 12/08/24 12/06/24 Rx carvedilol 6.25 mg tablet 6.25 mg PO BID #180 tabs 09/14/24 12/08/24 12/07/24 Rx citalopram 10 mg tablet 10 mg PO DAILY 09/14/24 12/08/24 12/07/24 History hydralazine 50 mg tablet 50 mg PO DIRECTED #270 tabs 09/14/24 12/08/24 Unknown Rx latanoprost 0.005 % eye drops 1 drp ophthalmic (eye) DAILY 09/14/24 12/08/24 12/07/24 History minoxidil 2.5 mg tablet 5 mg PO BID 09/14/24 12/08/24 12/07/24 History polyethylene glycol 3350 17 4 g PO DAILY #238 grams 11/23/24 12/08/24 Unknown Rx gram/dose oral powder (Miralax) dorzolamide 22.3 mg-timolol 6.8 1 drp ophthalmic (eye) BID 12/08/24 12/08/24 12/07/24 08:00 History mg/mL eye drops insulin degludec 100 unit/mL (3 20 unit SUBCUT DAILY 12/08/24 12/08/24 12/07/24 History mL) subcutaneous pen (Tresiba FlexTouch U-100 insulin) nifedipine 30 mg tablet,extended 30 mg PO DAILY 12/08/24 12/08/24 12/07/24 History release 24 hr hydrocodone 10 mg-acetaminophen 1 - 2 tab PO QID 12/09/24 12/09/24 Unknown History 325 mg tablet isosorbide mononitrate 30 mg 30 mg PO DAILY 12/09/24 12/09/24 Unknown History tablet,extended release 24 hr lanthanum 1,000 mg chewable tablet 750 mg PO TID 12/09/24 Unknown History lanthanum 750 mg chewable tablet 750 mg PO TID 12/09/24 12/09/24 1 Week Ago History ~12/02/24 Allergies Allergy/AdvReac Type Severity Reaction Status Date / Time No Known Allergies Allergy Verified 11/23/24 01:55 Current Medications Generic Name Dose Route Start Last Admin Trade Name Freq PRN Reason Stop Dose Admin Clonidine HCl 0.1 mg 12/08/24 00:40 12/08/24 01:07 Clonidine 0.1 Mg Tablet PO 0.1 mg BID NATHANAEL Administration Cyclobenzaprine HCl 10 mg 12/07/24 19:40 12/08/24 03:08 Cyclobenzaprine 10 Mg Tablet PO 10 mg TID PRN Administration MUSCLE SPASMS Dexamethasone 6 mg 12/08/24 04:00 12/08/24 03:07 Dexamethasone 10 Mg/Ml Inj IVP 6 mg Q24H NATHANAEL Administration Heparin Sodium (Porcine) 5,000 unit 12/07/24 21:30 12/07/24 21:07 Heparin 5,000 Unit/Ml Inj 1 Ml SUBCUT Not Given Q12H NATHANAEL Hydromorphone HCl 1 mg 12/07/24 19:40 12/08/24 03:08 Hydromorphone 0.5 Mg/0.5 Ml Inj IVP 1 mg Q4H PRN Administration PAIN Insulin Human Lispro 0 unit 12/07/24 19:40 12/07/24 21:34 Insulin Lispro 100 Unit/1 Ml SUBCUT Not Given WM&BEDTIME NATHANAEL Protocol Non-Formulary Medication 2,250 mg 12/07/24 21:00 12/07/24 21:21 Lanthanum PO Not Given TID NATHANAEL PFSH Acute PFSH: Medical History Hypertension Essential hypertension MSSA bacteremia Infection due to Port-A-Cath Anemia NSTEMI (non-ST elevated myocardial infarction) Hemodialysis access site with arteriovenous graft CAD (coronary artery disease) Hx of staphylococcal infection Chronic back pain Osteoarthritis Fibromyalgia GERD (gastroesophageal reflux disease) CKD (chronic kidney disease) Lumbar disc disease End stage renal disease on dialysis Diabetes mellitus Hypertensive emergency Congestive heart failure ESRD (end stage renal disease) Diabetes mellitus, type II Cardiomyopathy Surgical History Status post insertion of hemodialysis catheter Status post peritoneal dialysis History of coronary artery stent placement S/P tonsillectomy S/P carpal tunnel release H/O circumcision History of cataract surgery Family History Mother Aneurysm Grandmother Cancer Sister Cancer Social History Smoking and tobacco/nicotine status: unknown if used tobacco/nicotine Alcohol intake: never Substance/Drug Use: former 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 Clean since 1991 Lives independently: Yes Household members: none Housing: House Marital status: service: No Current occupational status: disabled Vitals/I&O/Wt Last Vital Signs Temp 98.2 F 12/08/24 07:48 Pulse 77 12/08/24 07:48 Resp 18 12/08/24 07:48 BP 178/98 12/08/24 07:48 Pulse Ox 94 12/08/24 07:48 O2 Del Method Room Air 12/08/24 07:48 O2 Flow Rate 2 12/07/24 10:16 12/07/24 12/08/24 12/08/24 22:59 06:59 14:59 Intake Total 500 / 500 200 / 700 Balance 500 / 500 200 / 700 Weight last 48 hrs Weight 125.418 kg Weight 118.841 kg Weight 117.934 kg Physical Exam Narrative: Patient is awake alert, no distress HEENT-PERRLA S1-S2 regular rate and rhythm per report Lungs clear per report Abdomen soft nontender per report No pedal edema Data 12/09/24 04:44 12/09/24 04:44 A&P Assessment and plan (1) ESRD (end stage renal disease): 1. End-stage renal disease: On MWF schedule, HD today 2. History of hypertension: Blood pressure elevated, will resume home meds 3. Anemia: Hemoglobin at goal 4. Intractable pain, management per primary team 5. History of coronary artery disease Patient evaluated using audiovisual cart. Time spent 40 minutes. PDMP PDMP Reviewed: Not Reviewed Consult Attestations Medical Necessity Statement: Per medicine team Coding Level of Care Code Acute Code for Chg Fwd Diagnoses ESRD (end stage renal disease) N18.6
[2024-12-08 09:43] LABS: Anion Gap 25.1 (5-19); Blood Urea Nitrogen 73 mg/dL (6-20); Calcium 9.7 mg/dL (8.5-10.5); Carbon Dioxide 23 mmol/L (22-29); Chloride 91 mmol/L (98-107); Creatinine Clr Calc Pharmacy 12.8021; Glomerular Filtration Rate 6.5 mL/min (90-130); Glucose 277 mg/dL (65-115); Osmolality Calculated 309 mOsm/kg (285-295); Potassium 5.1 mmol/L (3.5-5.1); Sodium 134 mmol/L (136-145)
[2024-12-08] MEDS: insulin glargine 100 units/1 mL 20 UNIT SUBCUT (09:45)
[2024-12-08] MEDS: insulin lispro 100 unit/1 mL SUBCUT ×3 (09:46→21:29)
[2024-12-08] MEDS: minoxidil 10 mg Tablet 5 MG PO ×2 (09:46→18:07)
[2024-12-08] MEDS: citalopram 20 mg Tablet 10 MG PO (09:47)
[2024-12-08] MEDS: pantoprazole DR 40 mg Tablet PO (09:47)
--- NOTE | 2024-12-08 10:10 | PC.CHAP ---
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 [] Prayer [] Active listening [] Non-anxious presence [] Spiritual/emotional support [] Crisis/trauma care [] Spiritual counseling [] Bereavement support [] Provided bereavement packet [] Provided Bible/devotional materials [] Provided toy/stuffed animal, coloring book to patient or family member [] Provided Communion [] Anointing/Star [] Salvation [] Completed spiritual assessment [] Other: Impact on Illness or Injury [] Angry [] Fearful [] Anxious [] Often cries [] Exhaustion [] Unable to work [] Unable to attend yazidi [] Unable to walk/stand [] Unable to read [] Unable to drive [] Unable to eat/drink [] Unable to sleep [] Unable to be with family [] Patient intubated [] Other: Summary Time spent with patient
[2024-12-08 10:45] LABS: Hepatitis B Surface AB 626.6 (11.5-1000); Hepatitis B Surface Antigen Non-Reactive (Nonreactive)
[2024-12-08 11:26] LABS: Glucose Point of Care 275 mg/dL (70-110)
[2024-12-08 11:26] LABS: Hepatitis C Virus Antibody Reactive (Nonreactive)
--- NOTE | 2024-12-08 11:57 | PC.OT ---
OT eval held due to decline in status
--- NOTE | 2024-12-08 12:08 | PC.HD ---
Went to get pt for dialysis at 10:20, pt on bed with feet on the ground c/o back pain 04/22, says he can't lay down d/t pain. Pt's nurse ntdf and Dilaudid and cyclobenzprine given appx 10:40. Dr [facility] ntfd that pt can't lay down in bed d/t pain, says she will talk with hospitalist. Went back at 11:10 to try to get patient but he insists he needs to stand up first to ease the pain. Pt assisted to stand with walker, then pt started moving towards chair. Reminded pt that he needs to be in bed to go to dialysis but he insists he has to sit in the chair. Tried to talk with pt regarding dialysis and he picked up his phone and made a phone call and started a conversation. Left the room and came back again at 11:20 and asked him to get back in bed but he said he can't do it yet. Returned again at 11:50 to ask pt to get in bed to go to dialysis but his lunch tray had just been delilvered and he insists that he has to eat before going to dialysis. Charge nurse ntfd of repeated attempts. As walking back to dialysis room, saw pt walking with walker to bathroom, most of lunch still on his tray. Returned to room at 12:20, pt talking with visitors, still has not eaten lunch. Charge nurse aware, says he may be able to go to MRI soon and go to HD afterwards, will let dialysis nurse know.
[2024-12-08 16:29] LABS: Glucose Point of Care 215 mg/dL (70-110)
--- NOTE | 2024-12-08 17:56 | PM.PN ---
Subjective Subjective: Patient was seen this morning, currently alert oriented x 3, following all commands, he is drowsy he feels drowsy with the pain medications but his pain is more well-controlled no nausea, no vomiting, no shortness of breath, we discussed dialysis today, and performing MRI, he is in agreement, blood pressures have been elevated, I will start p.o. blood pressure meds, patient is still requiring IV Dilaudid for pain control Vitals/I&O/Wt Last Vital Signs Temp 98.4 F 12/08/24 15:59 Pulse 74 12/08/24 15:59 Resp 17 12/08/24 15:59 BP 180/90 12/08/24 15:59 Pulse Ox 92 12/08/24 15:59 O2 Del Method Room Air 12/08/24 15:59 O2 Flow Rate 2 12/07/24 10:16 12/08/24 12/08/24 12/08/24 06:59 14:59 22:59 Intake Total 200 / 700 1080 / 1080 Balance 200 / 700 1080 / 1080 Weight last 48 hrs Weight 125.418 kg Weight 118.841 kg Weight 117.934 kg Physical Exam Const: COMMON NORMALS: no acute distress and patient oriented x3 Neck/C-Spine: COMMON NORMALS: no JVD Resp: COMMON NORMALS: normal respiratory effort, No retractions, No use of accessory muscles and clear to auscultation bilaterally AUSCULTATION: clear to auscultation bilaterally Cardio: COMMON NORMALS: no JVD, regular rate, regular rhythm, S1 normal heart sound present and S2 normal heart sound present RATE: regular rate RHYTHM: regular rhythm HEART SOUNDS: S1 normal heart sound present and S2 normal heart sound present GI: COMMON NORMALS: Normal to inspection, nondistended, normoactive bowel sounds present and non-tender Extremity: COMMON NORMALS: no pedal edema Neuro: COMMON NORMALS: patient oriented x3 Psych: COMMON NORMALS: mental status grossly normal Data 12/07/24 09:25 12/08/24 09:16 A&P Assessment and plan (1) Diabetes mellitus, type II: (2) ESRD (end stage renal disease): (3) Intractable back pain: (4) Acute back pain: Plan Acute intractable back pain - CT lumbar spine CT/CT lumbar spine wo con* [id number] IMPRESSION: 1. Advanced lumbar spondylosis with scoliosis. 2. Multilevel areas of central and foraminal stenosis as noted on the prior CT. 3. Bar moderate to severe bilateral foraminal stenosis at L5-S1 due to disc osteophyte disease. 4. L4-5: Severe LEFT foraminal stenosis and mild on the RIGHT. 5. L3-4: Moderate LEFT foraminal stenosis. 6. L2-3: Disc protrusion encroaching upon the RIGHT subarticular recess and traversing L3 nerve root. 7. Moderate RIGHT foraminal stenosis at L1-2. 8. No acute lumbar spine fracture. - No urinary continence, no bowel incontinence, no saddle or perianal anesthesia, no fevers - Plan - Dilaudid 1 mg IV push every 4 hours as needed - Soma 350 mg every 8 hours as needed - Monitor respiratory status closely, monitor mentation closely - Narcan - Decadron 6 mg IV push every 24 hours - MRI lumbar spine Type 2 diabetes mellitus - Takes Tresiba 30 units subcu daily - Switch to Lantus 20 units subcu daily, moderate dose sliding scale Hypertensive emergency, titrate p.o. blood pressure medications Full code - Lovenox for DVT prophylaxis - Patient is a [employer] and does not accept blood or blood products PDMP PDMP Reviewed: Last Reviewed 12/07/24 15:50 by José Luis Gonzalez MD Attestations Medical Necessity Statement*: Patient requires hospitalization, inpatient, greater than 2 midnights for intractable back pain Diagnoses Type 2 diabetes mellitus with chronic kidney disease on chronic dialysis, unspecified whether machine long goods helper insulin use E11.22; N18.6; Z99.2 Diabetes mellitus machine long goods helper insulin use: unspecified machine long goods helper insulin use status Diabetes mellitus complication status: with kidney complications Diabetes mellitus complication detail: with chronic kidney disease Chronic kidney disease stage: on chronic dialysis ESRD (end stage renal disease) N18.6 Intractable back pain M54.9 Acute back pain M54.9
[2024-12-08] MEDS: carvedilol 6.25 mg Tablet 12.5 MG PO (18:06)
--- NOTE | 2024-12-08 19:32 | PC.HD ---
Pt c/o severe back pain throughout dialysis, left several messages for pt's nurse requesting medication but nurse later reported she was not allowed to give any . Pt requested sign off 40 minutes early due to pain and not being able to move his access arm. Dr Banks notified.
[2024-12-08 20:42] LABS: Glucose Point of Care 185 mg/dL (70-110)
[2024-12-08] MEDS: hyDRALAzine 10 mg Tablet PO (21:29)
[2024-12-09] MEDS: dexamethasone 10 mg/mL INJ 6 MG IVP (03:08)
[2024-12-09] MEDS: hyDRALAzine 10 mg Tablet PO ×3 (03:08→14:35)
[2024-12-09 03:56] VITALS: BP 153/80; PULSE 82; RESP 18; TEMP 37.2; O2SAT 94
[2024-12-09 05:10] LABS: Hematocrit 36.8 % (37-53); Mean Corpuscular HGB Conc 32.9 g/dL (30-55); Mean Corpuscular Hemoglobin 31.8 pg (27-33); Mean Corpuscular Volume 96.6 fl (82-101); Mean Platelet Volume 11.7 fL (7.4-10.4); Platelet Count 97 10^3/cmm (157-399); Red Blood Count 3.81 10^6/uL (3.85-5.65); Red Cell Distribution Width 14.5 % (12.1-15.1); White Blood Count 10.39 10^3/uL (3.29-11.43)
[2024-12-09 05:43] LABS: Absolute Segmented Neutrophil 8.7 10/cmm (1.6-7.1); Band Neutrophils Absolute 1.1 10^3/cmm (0.0-1.2); Eosinophils 0 %; Lymphocytes 2 %; Monocytes Absolute 0.3 10^3/cmm (0.1-0.6); Segmented Neutrophils 84 %; Slide Review Slide Review Perform; Total Cells Counted 100 (0-100)
[2024-12-09 05:44] LABS: Absolute Neutrophil 9.9 10^3/cmm (1.4-6.5); Platelet Estimate Decreased (Normal)
[2024-12-09] MEDS: HYDROcodone-acetaminophen 5-325 mg Tablet 2 TAB PO (05:44)
[2024-12-09 06:53] LABS: Glucose Point of Care 206 mg/dL (70-110)
[2024-12-09 07:24] VITALS: BP 137/61; PULSE 69; RESP 17; TEMP 37.5; O2SAT 90
[2024-12-09] MEDS: pantoprazole DR 40 mg Tablet PO (08:15)
[2024-12-09] MEDS: carvedilol 6.25 mg Tablet 12.5 MG PO ×2 (08:15→17:40)
[2024-12-09] MEDS: amlodipine 5 mg Tablet PO (08:15)
[2024-12-09] MEDS: citalopram 20 mg Tablet 10 MG PO (08:15)
[2024-12-09] MEDS: isosorbide mononitrate ER 30 mg Tablet PO (08:16)
[2024-12-09] MEDS: insulin lispro 100 unit/1 mL SUBCUT ×4 (08:16→21:48)
[2024-12-09 08:22] LABS: Anion Gap 21.7 (5-19); Blood Urea Nitrogen 62 mg/dL (6-20); Calcium 9.4 mg/dL (8.5-10.5); Carbon Dioxide 24 mmol/L (22-29); Chloride 94 mmol/L (98-107); Creatinine Clr Calc Pharmacy 14.4707; Glomerular Filtration Rate 7.6 mL/min (90-130); Glucose 168 mg/dL (65-115); Osmolality Calculated 301 mOsm/kg (285-295); Potassium 4.7 mmol/L (3.5-5.1); Sodium 135 mmol/L (136-145)
[2024-12-09] MEDS: insulin glargine 100 units/1 mL 20 UNIT SUBCUT (09:34)
--- NOTE | 2024-12-09 09:51 | P.CONIM_ITS ---
Providers/Reason For Consult 2 Consulting Physician/Specialty*: Hospitalist Reason for Consult*: Back and leg pain Attending Physician: José Luis Gonzalez MD Primary Care Provider: Sandy Kelly MD History of Present Illness History of Present Illness Kt Jett is a 59 year old male complaining of back and leg pain. Patient stated the leg pain started yesterday. he has never had any back surgeries, no history of injections, he is home hydrocodone 10 1 to 2 tablets every 6 hours is not helping with his pain at home, he uses the medication as prescribed Review of Systems 2 Const: Denies: fever(s) Eyes: Denies: change in vision Card: Denies: chest pain Neuro: Reports: numbness in extremities and weakness in extremities; Denies: headache(s) Medications/Allergies Home Medications ?Medication ?Instructions ?Recorded ?Confirmed ?Last Taken ?Type pantoprazole 40 mg tablet,delayed 40 mg PO DAILY 07/1312/08/24 12/07/24 History release vitamin B complex-vitamin C-folic 1 tab PO DAILY 03/0312/08/24 12/07/24 History acid 0.8 mg tablet Discontinue Dressing Changes #1 ea 07/16/22 12/08/24 U nknown Rx Diabetic shoes with Accomadative #1 ea 08/14/22 Unknown Rx Insoles vit B,C-folic ac 800 mcg-zinc 12.5 1 tab PO DAILY 06/1412/08/24 12/07/24 History mg-selen-D3 2,000 unit-vit E tablet (RenaPlex-D) hydrocodone 5 mg-acetaminophen 325 1 - 2 tab PO Q6H PA IN #10 tabs 12/15/23 12/08/24 12/07/24 Rx mg tablet amlodipine 5 mg tablet 5 mg PO DAILY #90 tabs 09/1412/08/24 12/06/24 Rx carvedilol 6.25 mg tablet 6.25 mg PO BID #180 tabs 11/0512/08/24 12/07/24 Rx citalopram 10 mg tablet 10 mg PO DAILY 09/14/24/03/0712/07/24 History hydralazine 50 mg tablet 50 mg PO DIRECTED #270 ta bs 09/14/24 12/08/24 Unknown Rx latanoprost 0.005 % eye drops 1 drp ophthalmic (eye) D AILY 09/14/24 12/08/24 12/07/24 History minoxidil 2.5 mg tablet 5 mg PO BID 09/14/2412/08/2 5 12/07/24 History polyethylene glycol 3350 17 4 g PO DAILY #238 grams 12/08/24 Unknown Rx gram/dose oral powder (Miralax) dorzolamide 22.3 mg-timolol 6.8 1 drp ophthalmic (eye) BID 12/08/24 12/08/24 12/07/24 08:00 History mg/mL eye drops insulin degludec 100 unit/mL (3 20 unit SUBCUT DAILY 0 12/08/24 12/08/24 12/07/24 History mL) subcutaneous pen (Tresiba FlexTouch U-100 insulin) nifedipine 30 mg tablet,extended 30 mg PO DAILY 12/08/24 12/07/24 History release 24 hr Allergies Allergy/AdvReac Type Severity Reaction Status Date / Time No Known Allergies Allergy Verified 11/23/24 01:55 Current Medications Generic Name Dose Route Start Last Admin Trade Name Freq PRN Reason Stop Dose Admin Amlodipine Besylate 5 mg 12/08/24 09:00 12/09/24 08:15 Amlodipine 5 Mg Tablet PO 5 mg DAILY NATHANAEL Administration Carvedilol 12.5 mg 12/08/24 00:35 12/09/24 08:15 Carvedilol 6.25 Mg Tablet PO 12.5 mg BID NATHANAEL Administration Citalopram Hydrobromide 10 mg 12/08/24 09:00 12/09/24 08:15 Citalopram 20 Mg Tablet PO 10 mg DAILY NATHANAEL Administration Clonidine HCl 0.1 mg 12/08/24 00:40 12/09/24 08:22 Clonidine 0.1 Mg Tablet PO Not Given BID NATHANAEL Dexamethasone 6 mg 12/08/24 04:00 12/09/24 03:08 Dexamethasone 10 Mg/Ml Inj IVP 6 mg Q24H NATHANAEL Administration Heparin Sodium (Porcine) 5,000 unit 12/07/24 21:30 12/09/24 08:15 Heparin 5,000 Unit/Ml Inj 1 Ml SUBCUT Not Given Q12H [facility] Hydralazine HCl 10 mg 12/08/24 20:00 12/09/24 08:15 Hydralazine 10 Mg Tablet PO 10 mg Q6H NATHANAEL Administration Insulin Glargine 20 unit 12/08/24 09:00 12/09/24 09:34 Insulin Glargine 100 Units/1 Ml SUBCUT 20 unit DAILY NATHANAEL Administration Insulin Human Lispro 0 unit 12/07/24 19:40 12/09/24 08:16 Insulin Lispro 100 Unit/1 Ml SUBCUT 6 unit WM&BEDTIME NATHANAEL Administration Protocol Isosorbide Mononitrate 30 mg 12/08/24 09:00 12/09/24 08:16 Isosorbide Mononitrate Er 30 Mg Tablet PO 30 mg DAILY [facility] Administration Latanoprost 1 drop 12/08/24 09:00 12/09/24 08:17 Latanoprost 0.005% Op Soln 2.5 Ml Btl EYE-BOTH Not Given DAILY [facility] Minoxidil 5 mg 12/08/24 09:00 12/09/24 08:21 Minoxidil 10 Mg Tablet PO Not Given BID [facility] Non-Formulary Medication 2,250 mg 12/07/24 21:00 12/07/24 21:21 Lanthanum PO Not Given TID [facility] Pantoprazole Sodium 40 mg 12/08/24 09:00 12/09/24 08:[address] 40 Mg Tablet PO 40 mg DAILY NATHANAEL Administration PFSH Acute 2 PFSH: Medical History Hypertension Essential hypertension MSSA bacteremia Infection due to Port-A-Cath Anemia NSTEMI (non-ST elevated myocardial infarction) Hemodialysis access site with arteriovenous graft CAD (coronary artery disease) Hx of staphylococcal infection Chronic back pain Osteoarthritis Fibromyalgia GERD (gastroesophageal reflux disease) CKD (chronic kidney disease) Lumbar disc disease End stage renal disease on dialysis Diabetes mellitus Hypertensive emergency Congestive heart failure ESRD (end stage renal disease) Diabetes mellitus, type II Cardiomyopathy Surgical History Status post insertion of hemodialysis catheter Status post peritoneal dialysis History of coronary artery stent placement S/P tonsillectomy S/P carpal tunnel release H/O circumcision History of cataract surgery Family History Mother Aneurysm Grandmother Cancer Sister Cancer Social History Smoking and tobacco/nicotine status: unknown if used tobacco/nicotine Alcohol intake: never Substance/Drug Use: former 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 Clean since 1991 Lives independently: Yes Household members: none Housing: House Marital status: service: No Current occupational status: disabled Vitals/I&O/Wt Last Vital Signs Temp 99.5 F 12/09/24 07:24 Pulse 69 12/09/24 07:24 Resp 17 12/09/24 07:24 BP 137/61 12/09/24 07:24 Pulse Ox 90 12/09/24 07:24 O2 Del Method Room Air 12/09/24 07:24 O2 Flow Rate 2 12/07/24 10:16 12/08/24 12/09/24 12/09/24 22:59 06:59 14:59 Intake Total 500 / 1580 120 / 1700 120 / 120 Output Total 3259 / 3259 Balance -2759 / -1679 120 / -1559 120 / 120 Weight last 48 hrs Weight 268 lb Weight 268 lb 1.314 oz Weight 276 lb 8 oz Weight 262 lb Physical Exam 2 Narrative: Patient looks to be uncomfortable sitting in chair. Grossly has 5-5 strength bilateral lower extremities. Alert and oriented x 3 Head is normocephalic atraumatic Respirations are intact No evidence of any rashes or infection 5/5 strength in bilateral upper and lowe r extremities Sensation intact in all extremities Data 12/09/24 04:44 12/09/24 04:44 A&P Assessment and plan (1) Lumbar radiculopathy: Patient has lumbar stenosis at this point do not see anything urgently to operate on. Plan to be to see him on an outpatient basis and likely get him into pain management for possible injections. MRI results: 1. Thoracolumbar scoliosis. No acute compression fractures. 2. No high-grade central canal stenosis. 3. Moderate to severe LEFT L4-5 and LEFT L5-S1 bony foraminal narrowing. 4. Shallow central and RIGHT paracentral protrusion L5-S1 with slight contact of the RIGHT S1 nerve root. 5. Narrowing of the RIGHT subarticular recess L1-2 and RIGHT L2-3. PDMP PDMP Reviewed: Not Reviewed Coding Level of Care Code Acute Code for Chg Fwd Diagnoses Lumbar radiculopathy M54.16
[2024-12-09 11:31] VITALS: BP 131/61; PULSE 58; RESP 18; TEMP 36.6; O2SAT 90
[2024-12-09 11:32] LABS: Glucose Point of Care 276 mg/dL (70-110)
[2024-12-09 11:54] LABS: HEP C RNA Viral Load Quant <1.18 NOT DETECTED Log IU/mL (NOT DETECTED); HEP C RNA Viral Load Quant <15 NOT DETECTED IU/mL (NOT DETECTED)
[2024-12-09] MEDS: HYDROcodone-acetaminophen 10-325 mg Tablet 2 TAB PO ×2 (12:21→21:48)
--- NOTE | 2024-12-09 14:30 | PC.NURSE ---
pts phone and wallet returned to him
[2024-12-09 15:21] VITALS: BP 114/58; PULSE 57; RESP 18; TEMP 36.6; O2SAT 95
[2024-12-09 16:39] LABS: Glucose Point of Care 211 mg/dL (70-110)
--- NOTE | 2024-12-09 17:17 | P.PN_ITS ---
Subjective 2 Subjective: Patient was seen this morning, he was able to ambulate with physical therapy he was able to get up to the bathroom but continues to have some complaints of severe low back pain radiating down his left leg, no urinary continence, no bowel incontinence no saddle or perianal anesthesia Vitals/I&O/Wt Last Vital Signs Temp 97.8 F 12/09/24 15:21 Pulse 57 L 12/09/24 15:21 Resp 18 12/09/24 15:21 BP 114/58 12/09/24 15:21 Pulse Ox 95 12/09/24 15:21 O2 Del Method Room Air 12/09/24 15:21 O2 Flow Rate 2 12/07/24 10:16 12/09/24 12/09/24 12/09/24 06:59 14:59 22:59 Intake Total 120 / 1700 240 / 240 Balance 120 / -1559 240 / 240 Weight last 48 hrs Weight 121.563 kg Weight 121.6 kg Weight 125.418 kg Weight 118.841 kg Physical Exam 2 Const: COMMON NORMALS: no acute distress and patient oriented x3 Resp: COMMON NORMALS: normal respiratory effort, No retractions, No use of accessory muscles and clear to auscultation bilaterally AUSCULTATION: clear to auscultation bilaterally Cardio: COMMON NORMALS: regular rate, regular rhythm, S1 normal heart sound present and S2 normal heart sound present RATE: regular rate RHYTHM: r egular rhythm HEART SOUNDS: S1 normal heart sound present and S2 normal heart sound present GI: COMMON NORMALS: Normal to inspection, nondistended, normoactive bowel sounds present and non-tender Extremity: COMMON NORMALS: no pedal edema Neuro: COMMON NORMALS: patient oriented x3 Psych: COMMON NORMALS: mental status grossly normal Data 12/09/24 04:44 12/09/24 04:44 A&P Assessment and plan (1) Diabetes mellitus, type II: (2) ESRD (end stage renal disease): (3) Intractable back pain: (4) Acute back pain: Plan Acute intractable back pain - CT lumbar spine CT/CT lumbar spine wo con* [id number] IMPRESSION: 1. Advanced lumbar spondylosis with scoliosis. 2. Multilevel areas of central and foraminal stenosis as noted on the prior CT. 3. Bar moderate to severe bilateral foraminal stenosis at L5-S1 due to disc osteophyte disease. 4. L4-5: Severe LEFT foraminal stenosis and mild on the RIGHT. 5. L3-4: Moderate LEFT foraminal stenosis. 6. L2-3: Disc protrusion encroaching upon the RIGHT subarticular recess and traversing L3 nerve root. 7. Moderate RIGHT foraminal stenosis at L1-2. 8. No acute lumbar spine fracture. MR/MR lumbar spine wo con* [id number] IMPRESSION: Exam is somewhat limited due to body habitus and thoracolumbar scoliosis. 1. Thoracolumbar scoliosis. No acute compression fractures. 2. No high-grade central canal stenosis. 3. Moderate to severe LEFT L4-5 and LEFT L5-S1 bony foraminal narrowing. 4. Shallow central and RIGHT paracentral protrusion L5-S1 with slight contact of the RIGHT S1 nerve root. 5. Narrowing of the RIGHT subarticular recess L1-2 and RIGHT L2-3. - No urinary continence, no bowel incontinence, no saddle or perianal anesthesia, no fevers - Plan - hydrocodone 10mg 2 tabs [id number] - Soma 350 mg every 8 hours as needed - Monitor respiratory status closely, monitor mentation closely - Narcan - Decadron 6 mg IV push every 24 hours Type 2 diabetes mellitus - Takes Tresiba 30 units subcu daily - Switch to Lantus 20 units subcu daily, moderate dose sliding scale Hypertensive emergency, titrate p.o. 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
[2024-12-09 20:59] LABS: Glucose Point of Care 220 mg/dL (70-110)
--- NOTE | 2024-12-09 21:51 | P.PN_ITS ---
Subjective 2 Subjective: c/o pain Medications: Reviewed: Yes Vitals/I&O/Wt Last Vital Signs Temp 97.8 F 12/09/24 15:21 Pulse 57 L 12/09/24 15:21 Resp 18 12/09/24 15:21 BP 114/58 12/09/24 15:21 Pulse Ox 95 12/09/24 15:21 O2 Del Method Room Air 12/09/24 15:21 O2 Flow Rate 2 12/07/24 10:16 12/09/24 12/09/24 12/09/24 06:59 14:59 22:59 Intake Total 120 / 1700 240 / 240 120 / 360 Balance 120 / -1559 240 / 240 120 / 360 Weight last 48 hrs Weight 121.563 kg Weight 121.6 kg Weight 125.418 kg Physical Exam 2 Narrative: Patient is awake alert, no distress HEENT-PERRLA S1-S2 regular rate and rhythm per report Lungs clear per report Abdomen soft nontender per report No pedal edema Data 12/09/24 04:44 12/09/24 04:44 A&P Assessment and plan (1) ESRD (end stage renal disease): 1. End-stage renal disease: On MWF schedule, HD tomorrow 2. History of hypertension: Blood pressure elevated, will resume home meds 3. Anemia: Hemoglobin at goal 4. Intractable back pain, from lumbar radiculopathy , per primary team 5. History of coronary artery disease Patient evaluated using audiovisual cart. Time spent 40 minutes. PDMP PDMP Reviewed: Not Reviewed Attestations 2 Medical Necessity Statement*: per katalina Coding Level of Care Code Acute Code for Chg Fwd Diagnoses ESRD (end stage renal disease) N18.6
[2024-12-09 22:31] VITALS: BP 136/81; PULSE 61; RESP 18; TEMP 36.5; O2SAT 91
[2024-12-10] VITALS (8 sets, daily range): BP systolic 99–155; BP diastolic 54–80; PULSE 58–63; RESP 14–20; TEMP 36.1–36.8; O2SAT 93–96
[2024-12-10] MEDS: dexamethasone 10 mg/mL INJ 6 MG IVP (05:00)
[2024-12-10 06:40] LABS: Glucose Point of Care 95 mg/dL (70-110)
--- NOTE | 2024-12-10 08:56 | P.PN_ITS ---
Subjective 2 Subjective: no new c/o Medications: Reviewed: Yes Vitals/I&O/Wt Last Vital Signs Temp 98.3 F 12/10/24 08:36 Pulse 62 12/10/24 08:36 Resp 19 H 12/10/24 08:36 BP 115/64 12/10/24 08:36 Pulse Ox 96 12/10/24 08:36 O2 Del Method Oxymask 12/10/24 08:36 O2 Flow Rate 4 12/10/24 05:46 12/09/24 12/10/24 12/10/24 22:59 06:59 14:59 Intake Total 360 / 600 Output Total 200 / 200 Balance 360 / 600 -200 / 400 Weight last 48 hrs Weight 120.202 kg Weight 121.563 kg Weight 121.6 kg Physical Exam 2 Narrative: Patient is awake alert, no distress HEENT-PERRLA S1-S2 regular rate and rhythm per report Lungs clear per report Abdomen soft nontender per report No pedal edema Data 12/09/24 04:44 12/09/24 04:44 A&P Assessment and plan (1) ESRD (end stage renal disease): 1. End-stage renal disease: On MWF schedule, HD today 2. History of hypertension: Blood pressure elevated, will resume home meds 3. Anemia: Hemoglobin at goal 4. Intractable back pain, from lumbar radiculopathy , per primary team 5. History of coronary artery disease Patient evaluated using audiovisual cart. Time spent 40 minutes. PDMP PDMP Reviewed: Not Reviewed Attestations 2 Medical Necessity Statement*: per katalina Coding Level of Care Code Acute Code for Chg Fwd Diagnoses ESRD (end stage renal disease) N18.6
[2024-12-10 10:45] LABS: Glucose Point of Care 111 mg/dL (70-110)
[2024-12-10] MEDS: carvedilol 6.25 mg Tablet 12.5 MG PO (11:41)
[2024-12-10] MEDS: pantoprazole DR 40 mg Tablet PO (11:41)
[2024-12-10] MEDS: HYDROcodone-acetaminophen 10-325 mg Tablet PO (13:12)
[2024-12-10 13:50] LABS: SARS Covid-2 Antigen Negative (Negative)
--- NOTE | 2024-12-10 15:33 | PM.DCS ---
Discharge Providers Date of Admission: 12/08/24 10:11 Date of Discharge: December 10, 2024 Attending Provider at Admission: José Luis Gonzalez MD Attending Provider at Discharge: José Luis Gonzalez MD Primary Care Provider: Sandy Kelly MD Diagnoses at Discharge Discharge Diagnosis (1) ESRD (end stage renal disease): Status: Acute Reason for Visit Reason for Visit: Back Pain Hospital Course Hospital Course Kt Jett is a 59 year old male with a past medical history of end-stage renal disease on dialysis, hypertension, CAD, fibromyalgia, lumbar disc disease, type 2 diabetes mellitus, who presents [facility] due to intractable back pain. Currently patient sitting up beside the bed, complaining of intractable back pain, he tells me he has chronic back pain, with pain in his lower back rating down the bilateral legs, he is on hydrocodone 10 1 to 2 tablets every 6 hours at home, he does tell me that he regular chores yesterday, emptying his cat litter, nothing excessive, no car accident, but today he started developing severe acute intractable back pain, pain with any movement, no clicking, no popping no urinary incontinence, bowel incontinence no saddle or perianal anesthesia, no fevers,. He has been given steroids, several doses of narcotics including morphine and Dilaudid, Norflex without improvement of his pain. Continues to rate his pain 7 out of 10, sitting up to the side of the bed, as he cannot lie down, he is hesitant about any movement due to severe intractable pain. Hospitalist team was called for pain management of severe intractable back pain. He tells me that chronically his back pain does radiate down bilateral lower extremities, he has never had any back surgeries, no history of injections, he is home hydrocodone 10 1 to 2 tablets every 6 hours is not helping with his pain at home, he uses the medication as prescribed Patient was admitted to [facility] for acute intractable back pain - CT lumbar spine CT/CT lumbar spine wo con* [id number] IMPRESSION: 1. Advanced lumbar spondylosis with scoliosis. 2. Multilevel areas of central and foraminal stenosis as noted on the prior CT. 3. Bar moderate to severe bilateral foraminal stenosis at L5-S1 due to disc osteophyte disease. 4. L4-5: Severe LEFT foraminal stenosis and mild on the RIGHT. 5. L3-4: Moderate LEFT foraminal stenosis. 6. L2-3: Disc protrusion encroaching upon the RIGHT subarticular recess and traversing L3 nerve root. 7. Moderate RIGHT foraminal stenosis at L1-2. 8. No acute lumbar spine fracture. MR/MR lumbar spine wo con* [id number] IMPRESSION: Exam is somewhat limited due to body habitus and thoracolumbar scoliosis. 1. Thoracolumbar scoliosis. No acute compression fractures. 2. No high-grade central canal stenosis. 3. Moderate to severe LEFT L4-5 and LEFT L5-S1 bony foraminal narrowing. 4. Shallow central and RIGHT paracentral protrusion L5-S1 with slight contact of the RIGHT S1 nerve root. 5. Narrowing of the RIGHT subarticular recess L1-2 and RIGHT L2-3. - No urinary continence, no bowel incontinence, no saddle or perianal anesthesia, no fevers - Patient required inpatient pain control, IV Dilaudid, PT OT -Patient required evaluation by orthopedic surgery, Dr. Gruber recommended outpatient follow-up -Due to decreased mobility, patient was discharged to [facility] -Advised patient to use hydrocodone sparingly for pain, do not drive or operate heavy machinery or drink while taking medication - Will discharge him to [facility] facility on hydrocodone 10-325 1 to 2 tablets every 8 hours as needed for pain - Discharged on Decadron burst -Discharged on lidocaine patch -Discharged on naproxen to be used sparingly for pain -Follow-up with Dr. Gruber as outpatient Type 2 diabetes mellitus, discharged on Tresiba 20 units subcu daily, with a low dose insulin sliding scale Hypertensive urgency, discharged on hydralazine 10 mg every 6 hours, Coreg 12.5 mg twice daily, amlodipine 10 mg daily, minoxidil, clonidine as needed for send hypertensive urgency For his history of end-stage renal disease on dialysis, received inpatient dialysis Physical Exam Const: COMMON NORMALS: no acute distress and patient oriented x3 Resp: COMMON NORMALS: normal respiratory effort, No retractions, No use of accessory muscles and clear to auscultation bilaterally AUSCULTATION: clear to auscultation bilaterally Cardio: COMMON NORMALS: regular rate, regular rhythm, S1 normal heart sound present and S2 normal heart sound present RATE: regular rate RHYTHM: regular rhythm HEART SOUNDS: S1 normal heart sound present and S2 normal heart sound present GI: COMMON NORMALS: Normal to inspection, nondistended, normoactive bowel sounds present and non-tender Extremity: COMMON NORMALS: no pedal edema Neuro: COMMON NORMALS: patient oriented x3 Psych: COMMON NORMALS: mental status grossly normal Discharge Data Studies Completed and Pending Completed Studies During Hospitalization Category Date Time Status CT lumbar spine wo con* [id number] Stat Cat Scan 12/07/24 11:06 Completed XR chest 1V portable [id number] Stat Exams 12/07/24 08:09 Completed MR lumbar spine wo con* [id number] Routine MRI 12/08/24 09:00 Completed Radiology Impressions Chest X-Ray 12/07/24 08:09 IMPRESSION: 1. Heart is enlarged but stable when compared to the prior exam. 2. No acute focal pulmonary opacities are detected. ADDENDUM: 12/07/24 0943 ADDENDUM: COMPARISON MORE: CT abdomen pelvis wo con [id number] 11/23/2024 2:[address] 12/07/24 11:06 IMPRESSION: 1. Advanced lumbar spondylosis with scoliosis. 2. Multilevel areas of central and foraminal stenosis as noted on the prior CT. 3. Bar moderate to severe bilateral foraminal stenosis at L5-S1 due to disc osteophyte disease. 4. L4-5: Severe LEFT foraminal stenosis and mild on the RIGHT. 5. L3-4: Moderate LEFT foraminal stenosis. 6. L2-3: Disc protrusion encroaching upon the RIGHT subarticular recess and traversing L3 nerve root. 7. Moderate RIGHT foraminal stenosis at L1-2. 8. No acute lumbar spine fracture. Lumbar Spine MRI 12/08/24 09:00 IMPRESSION: Exam is somewhat limited due to body habitus and thoracolumbar scoliosis. 1. Thoracolumbar scoliosis. No acute compression fractures. 2. No high-grade central canal stenosis. 3. Moderate to severe LEFT L4-5 and LEFT L5-S1 bony foraminal narrowing. 4. Shallow central and RIGHT paracentral protrusion L5-S1 with slight contact of the RIGHT S1 nerve root. 5. Narrowing of the RIGHT subarticular recess L1-2 and RIGHT L2-3. Laboratory Results WBC 10.39 10^3/uL (3.29-11.43) 12/09/24 04:44 RBC 3.81 10^6/uL (3.85-5.65) L 12/09/24 04:44 Hgb 12.10 g/dL (11.27-16.99) 12/09/24 04:44 Hct 36.8 % (37-53) L 12/09/24 04:44 MCV 96.6 fl (82-101) 12/09/24 04:44 MCH 31.8 pg (27-33) 12/09/24 04:44 MCHC 32.9 g/dL (30-55) 12/09/24 04:44 RDW 14.5 % (12.1-15.1) 12/09/24 04:44 Plt Count 97 10^3/cmm (157-399) L 12/09/24 04:44 MPV 11.7 fL (7.4-10.4) H 12/09/24 04:44 Neut % (Auto) 79.7 % 12/07/24 09:25 Lymph % (Auto) Not Reportable 12/09/24 04:44 [place] % (Auto) Not Reportable 12/09/24 04:44 Eos % (Auto) 0.0 % 12/07/24 09:25 Baso % (Auto) 0.7 % 12/07/24 09:25 Neut # (Auto) 6.09 10^3/uL (1.8-7.7) 12/07/24 09:25 Lymph # (Auto) Not Reportable 12/09/24 04:44 [place] # (Auto) Not Reportable 12/09/24 04:44 Eos # (Auto) 0.0 10^3/uL (0.0-0.8) 12/07/24 09:25 Baso # (Auto) 0.1 10^3/uL (0.0-0.1) 12/07/24 09:25 Nucleated RBC % (auto) 0 % 12/07/24 09:25 Total Counted 100 (0-100) 12/09/24 04:44 Atypical Lymphs % Not Reportable 12/09/24 04:44 Absolute Neutrophils 9.9 10^3/cmm (1.4-6.5) H 12/09/24 04:44 Segmented Neutrophils 84 % 12/09/24 04:44 Band Neutrophils 11.0 % 12/09/24 04:44 Lymphocytes (Manual) 2 % 12/09/24 04:44 Monocytes (Manual) 3.0 % 12/09/24 04:44 Absolute Monocytes 0.3 10^3/cmm (0.1-0.6) 12/09/24 04:44 Eosinophils (Manual) 0 % 12/09/24 04:44 Absolute Eosinophils 0.0 10^3/cmm (0.0-0.7) 12/09/24 04:44 Basophils (Manual) 0.0 % 12/09/24 04:44 Absolute Basophils 0.0 10^3/cmm (0.0-0.2) 12/09/24 04:44 Nucleated RBCs # 0.0 /100WBC 12/07/24 09:25 Platelet Estimate Decreased (Normal) 12/09/24 04:44 Sodium 135 mmol/L (136-145) L 12/09/24 04:44 Potassium 4.7 mmol/L (3.5-5.1) 12/09/24 04:44 Chloride 94 mmol/L (98-107) L 12/09/24 04:44 Carbon Dioxide 24 mmol/L (22-29) 12/09/24 04:44 Anion Gap 21.7 (5-19) H 12/09/24 04:44 BUN 62 mg/dL (6-20) H 12/09/24 04:44 Creatinine 7.4 mg/dL (0.7-1.2) H* 12/09/24 04:44 GFR Calculation 7.6 mL/min (90-130) L 12/09/24 04:44 Glucose 168 mg/dL (65-115) H 12/09/24 04:44 POC Glucose 111 mg/dL (70-110) H 12/10/24 10:42 Calculated Osmolality 301 mOsm/kg (285-295) H 12/09/24 04:44 Calcium 9.4 mg/dL (8.5-10.5) 12/09/24 04:44 Total Bilirubin 1.7 mg/dL (0.15-1.2) H 12/07/24 09:25 AST 26 U/L (0-40) 12/07/24 09:25 ALT 14 U/L (0-41) 12/07/24 09:25 Alkaline Phosphatase 114 U/L (40-130) 12/07/24 09: Total Protein 7.7 g/dL (6.6-8.7) 12/07/24 09: Albumin 3.8 g/dL (3.5-5.2) 12/07/24 09: Globulin 3.9 g/dL (1.3-4.6) 12/07/24 09:25 Urine Color Yellow (Yellow) 12/07/24 12:08 Urine Appearance Clear (CLEAR) 12/07/24 12:08 Urine pH 8.5 (5-7) A 12/07/24 12:08 Ur Specific [place] 1.013 (1.005-1.030) 12/07/24 12:08 Urine Protein 4+ (Negative) A 12/07/24 12:08 Urine Glucose (UA) 1+ (Normal) H 12/07/24 12:08 Urine Ketones Trace (Negative) 12/07/24 12:08 Urine Blood Trace (Negative) A 12/07/24 12:08 Urine Nitrate Negative (Negative) 12/07/24 12:08 Urine Bilirubin Negative (Negative) 12/07/24 12:08 Urine Urobilinogen 0.2 mg/dL (Negative) 12/07/24 12:08 Ur Leukocyte Esterase Negative (Negative) 12/07/24 12:08 Urine RBC 6-10 /hpf (0-2) 12/07/24 12:08 Urine WBC 0-5 /hpf (0-5) 12/07/24 12:08 Ur Squamous Epith Cells 0-5 /hpf (0-5) 12/07/24 12:08 Amorphous Sediment Not Reportable 12/07/24 12:08 Urine Bacteria None seen /hpf (NONE) 12/07/24 12:08 Hyaline Casts 2.46 /lpf 12/07/24 12:08 Urine Sperm 1+ /hpf 12/07/24 12:08 Hep Bs Antigen Non-reactive (Nonreactive) 12/07/24: Hep Bs Antibody 626.6 (11.5-1000) 12/07/24 09:25 Hepatitis C Antibody Reactive (Nonreactive) H 12/07/24 09:25 HCV RNA (PCR) IUs/ml <1.18 not detected Log IU/mL (NOT DETECTED) 12/08/24 16:00 HCV RNA (PCR) IU log10 <15 not detected IU/mL (NOT DETECTED) 12/08/24 16:00 SARS-CoV-2 Ag (Rapid) Negative (Negative) 12/10/24 12:50 Vitals Last Vital Signs Temp 97.2 F L 12/10/24 12:42 Pulse 61 12/10/24 12:42 Resp 18 12/10/24 12:42 BP 141/71 12/10/24 12:42 Pulse Ox 95 12/10/24 11:56 O2 Del Method Oxymask 12/10/24 11:56 O2 Flow Rate 1 12/10/24 10:12 Discharge Plan Discharge Patient Disposition: Xfer SNF Condition: Stable Prescriptions: New hydralazine 10 mg Tablet 10 mg PO Q6H 30 Days Qty: 120 0RF clonidine HCl 0.1 mg Tablet 0.1 mg PO BID PRN (Reason: for sbp>180 or dbp>100) 30 Days Qty: 60 0RF dexamethasone 6 mg tablet 6 mg PO DAILY 5 Days Qty: 5 0RF lidocaine 5 % adhesive patch,medicated 1 patch topical Q24H PRN (Reason: pain) 7 Days Qty: 7 0RF Rx Instructions: leave on most painful area for up to 12 hrs naloxone [Narcan] 4 mg/actuation spray,non-aerosol 4 mg intranasal Q2M PRN (Reason: opioid overdose) Qty: 2 0RF Rx Instructions: spray 1 dose into ONE nostril; alternate nostrils w each dose until help arrives insulin lispro [Humalog U-100 Insulin] 100 unit/mL Solution See Rx Instructions .ROUTE .COMPLEX Qty: 10 0RF Rx Instructions: Inject, subcut, 3 times daily, after meals, based on low-dose insulin sliding scale naproxen 500 mg tablet 500 mg PO BID PRN (Reason: pain) 7 Days Qty: 14 0RF Continued citalopram 10 mg tablet 10 mg PO DAILY latanoprost 0.005 % drops 1 drp ophthalmic (eye) DAILY amlodipine 5 mg tablet 5 mg PO DAILY Qty: 90 3RF pantoprazole 40 mg Tablet,Delayed Release (Dr/Ec) 40 mg PO DAILY B complex-vitamin C-folic acid 0.8 mg Tablet 1 tab PO DAILY minoxidil 2.5 mg tablet 5 mg PO BID RenaPlex-D 800 mcg-12.5 mg -2,000 unit tablet 1 tab PO DAILY polyethylene glycol 3350 [Miralax] 17 gram/dose powder 4 g PO DAILY Qty: 238 0RF dorzolamide-timolol 22.3-6.8 mg/mL drops 1 drp ophthalmic (eye) BID insulin degludec [Tresiba FlexTouch U-100] 100 unit/mL (3 mL) insulin pen 20 unit SUBCUT DAILY lanthanum 1,000 mg Tablet,Chewable 750 mg PO TID Rx Instructions: administer with food; chew thoroughly before swallowing Changed carvedilol 6.25 mg tablet 12.5 mg PO BID Qty: 180 3RF Rx Instructions: must administer with a meal/food hydrocodone-acetaminophen 10-325 mg Tablet 1 - 2 tab PO Q8H PRN (Reason: pain) 3 Days Qty: 18 0RF Rx Instructions: 2 tabs for severe pain maximum 6 tabs a day Discontinued hydralazine 50 mg tablet 50 mg PO DIRECTED Qty: 270 3RF Rx Instructions: take 1 tab three times daily, if systolic blood pressure is above 170 after 3 hours of taking medication take an extra tab hydrocodone-acetaminophen 5-325 mg tablet 1 - 2 tab PO Q6H Qty: 10 0RF Rx Instructions: MAX 6 PER DAY nifedipine 30 mg tablet extended release 24hr 30 mg PO DAILY isosorbide mononitrate [Imdur] 30 mg Tablet Extended Release 24 Hr 30 mg PO DAILY lanthanum 750 mg Tablet,Chewable 750 mg PO TID Rx Instructions: administer with food; chew thoroughly before swallowing No Action (DME) Diabetic shoes with Accomadative Insoles See Rx Instructions .Route .MEDSUPPLY Qty: 1 0RF Rx Instructions: As directed by HOME (DME) Discontinue Dressing Changes See Rx Instructions .Route .MEDSUPPLY Qty: 1 0RF Rx Instructions: Please discontinue dressing changes as patient is healed. Thank you Discharge Orders: Discharge Order (Routine); Ordered 12/10/24 Ordered By: José Luis Gonzalez Referrals: [facility] - [Outside] [facility] [place][Note 3] [Outside] Sandy Kelly MD [Primary Care Provider, Internal Medicine] - 12/20/24 1:15 pm Reyes Gruber DO [Physician, Orthopedics] - 12/16/24 8:15 am Discharge Diet: Cardiac Discharge Activity: Resume usual activity Activity Restrictions/Additional Instructions: -Please monitor your blood sugars closely -Monitor your blood sugars 3 times daily as after meals -Please record your blood sugars, and a blood sugar log -For your NovoLog -Please inject blood sugar after meals based on sliding scale provided -Do not inject insulin if you do not eat as hypoglycemia kills -This is a NovoLog sliding scale -Insulin sliding ?fingerstick? Insulin ?141-180?0 units/sq 181-220?2 units/sq ?221-260?4 units/sq ?261-300 6 units/sq ?301-350?8 units/sq ?351-400 10 units/sq ?401-450?12 units/sq >450? 14units/sq -If your blood sugar is greater than 500 go to the emergency room -If your blood sugar is less than 60 or at anytime you feel lightheaded or dizzy or diaphoretic or have chest palpitations check your blood sugar, and eat a hard candy or drink orange juice and go immediately to the emergency room -Remember hypoglycemia kills, so if his blood sugar is less than 60 we have to increase it by taking in a sugary meal such as a hard candy or orange juice and go to the emergency room -If you have any questions please call us where here to help Discharge Attestations Time Spent in Discharge Care*: greater than 30 min Status at Discharge: Cognitive status at discharge: cognitively intact, Behavioral status at discharge: cooperative, Quality Metrics Clinical Quality Measures [ No reported AMI, CVA or VTE this stay] Coding Level of Care Code 55177 Total time (in minutes) for Discharge: 45 Diagnoses ESRD (end stage renal disease) N18.6
== END 2024-12-10 15:30 | disposition skilled nursing facility (03) | DRG 551 ==
LOC: ER 12:36 → MEDSURG 16:19
PROVIDERS: Hospitalist; Internal Medicine; Admitting Provider Family Medicine; Emergency Provider Family Medicine; PCP Internal Medicine; Visit Provider Family Medicine
DX: M54.16 Radiculopathy, lumbar region (principal); N18.6 End stage renal disease; I12.0 Hypertensive chronic kidney disease with stage 5 chronic kidney disease or end stage renal disease; I42.9 Cardiomyopathy, unspecified; E11.22 Type 2 diabetes mellitus with diabetic chronic kidney disease; I25.10 Atherosclerotic heart disease of native coronary artery without angina pectoris; M79.7 Fibromyalgia; G89.29 Other chronic pain; I16.0 Hypertensive urgency; M19.90 Unspecified osteoarthritis, unspecified site; K21.9 Gastro-esophageal reflux disease without esophagitis; D63.1 Anemia in chronic kidney disease; Z99.2 Dependence on renal dialysis; I25.2 Old myocardial infarction; Z79.4 Long term (current) use of insulin; Z95.5 Presence of coronary angioplasty implant and graft
CPT/HCPCS: 36415; 36416; 71045; 72131; 72148; 80048; 80053; 81001; 82962; 85007; 85025; 86706; 86803; 87340; 87426; 87522; 90935; 94664; 96372; 96374; 97116; 97162; 97165; 97530; 99285; G0378; J1100; J1171; J1644; J1815; J1885; J2270; J2360; J2470; J9999

== ENCOUNTER 2024-12-12 09:25 | Inpatient (IN) | payer MEDICARE, MEDICAID, SELFPAY ==
[2024-12-12] VITALS (47 sets, daily range): BP systolic 63–147; BP diastolic 42–91; PULSE 58–73; RESP 13–20; TEMP 35.1–36.8; O2SAT 92–97; BMI 40.0; BMI 35.1
--- NOTE | 2024-12-12 09:35 | XRR_ITS ---
PROCEDURE INFORMATION: Exam: XR Chest Exam date and time: 12/12/2024 9:57 AM Age: 59 years old Clinical indication: Cough and dyspnea; Additional info: Dyspnea/cough TECHNIQUE: Imaging protocol: Radiologic exam of the chest. Views: 1 view. COMPARISON: CR XR chest 1V portable [id number] 12/07/2024 9:15 AM FINDINGS: Lungs: Unremarkable. No consolidation. Pleural spaces: Unremarkable. No pleural effusion. No pneumothorax. Heart/Mediastinum: Unremarkable. No cardiomegaly. Bones/joints: Dorsal spine dextroscoliosis.. Other findings: There has been no interval change compared to prior examination. XR/XR chest 1V portable [id number] IMPRESSION: 1. No acute findings. 2. Stable dorsal spine dextroscoliosis
--- NOTE | 2024-12-12 09:47 | W.ED.WEAKNES ---
HPI - Weakness General: Chief complaint: Weakness Stated complaint: BACK/HIP PAIN Time Seen by Provider: 12/12/24 09:35 History of Present Illness: 59-year-old male presents emergency room from the correction. They are reporting altered mental status recurrence of intractable back pain. Patient was admitted on 527 for 3 days to manage his back pain. We have tried multiple treatments in the ER and attempted to treat him as an outpatient those failed. Patient also has end-stage renal disease is on dialysis correction reports he did not complete his full run of dialysis on Friday 2 days ago. He usually gets dialysis Friday last week Friday he did have a full run of his dialysis. No report of fever.. Initial report we got his patient does not use oxygen on a regular basis. Associated symptoms: Denies chest pain, chills, dysuria or fever(s) Review of Systems Const: Denies: fever(s) or chills Card: Denies: chest pain Resp: Reports: dyspnea GI: Denies: abdominal pain : Denies: dysuria, urinary frequency or urinary urgency Musc: Reports: back pain and extremity pain; Denies: neck pain Skin/Breast: Denies: rash PFSH ED PFSH: Medical History Hypertension Essential hypertension MSSA bacteremia Infection due to Port-A-Cath Anemia NSTEMI (non-ST elevated myocardial infarction) Hemodialysis access site with arteriovenous graft CAD (coronary artery disease) Hx of staphylococcal infection Chronic back pain Osteoarthritis Fibromyalgia GERD (gastroesophageal reflux disease) CKD (chronic kidney disease) Lumbar disc disease End stage renal disease on dialysis Diabetes mellitus Hypertensive emergency Congestive heart failure ESRD (end stage renal disease) Diabetes mellitus, type II Cardiomyopathy Surgical History Status post insertion of hemodialysis catheter Status post peritoneal dialysis History of coronary artery stent placement S/P tonsillectomy S/P carpal tunnel release H/O circumcision History of cataract surgery Family History Mother Aneurysm Grandmother Cancer Sister Cancer Social History Smoking and tobacco/nicotine status: unknown if used tobacco/nicotine Alcohol intake: never Substance/Drug Use: former 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 Clean since 1991 Lives independently: Yes Household members: none Housing: House Marital status: service: No Current occupational status: disabled Physical Exam Const: GENERAL APPEARANCE: cooperative ORIENTATION/CONSCIOUSNESS: Yes awake HENMT: COMMON NORMALS: normocephalic, atraumatic and hearing grossly normal bilaterally HEAD & SCALP: normocephalic and atraumatic Resp: COMMON NORMALS: normal respiratory effort, No retractions, No use of accessory muscles and clear to auscultation bilaterally AUSCULTATION: clear to auscultation bilaterally Cardio: COMMON NORMALS: regular rate, regular rhythm and No murmurs present (Cardio) RATE: regular rate RHYTHM: regular rhythm GI: COMMON NORMALS: Soft to palpation and No hepatosplenomegaly present AUSCULTATION: Yes normoactive bowel sounds PALPATION: Yes Soft to palpation, No Tenderness to palpation present (GI), No Guarding due to palpation present (GI) and Yes No hepatosplenomegaly present Extremity: COMMON NORMALS: normal to inspection, capillary refill normal and no calf tenderness GENERAL: Yes edema (Bilateral lower extremities) Skin: COMMON NORMALS: no rashes or lesions noted GENERAL SKIN EXAM: no rashes or lesions noted Course Vital Signs: Vital signs: Vital Signs Temperature 98.3 F 12/12/24 09:32 Pulse Rate 73 12/12/24 09:32 Respiratory Rate 16 12/12/24 09:32 Blood Pressure 147/91 12/12/24 09:32 Pulse Oximetry 93 12/12/24 09:32 Oxygen Delivery Me thod Room Air 12/12/24 09:32 MDM - Weakness Medical Decision Making Patient encephalopathic. Oblivious to its metabolic due to his renal disease he is uremic his BUN is over 100. His potassium is slightly elevated at 5.4 calcium chloride albuterol and insulin I have all been ordered. Will consult nephrology admit. He continues to have back pain this will need to be managed again while he is here. Patient does not report any chest discomfort although not sure how reliable he is given his current mental status. Serial cardiac enzymes ordered. Second EKG also shows T wave inversion in V 4 5 and 6 that was not present on previous EKG May 2023. Discussed with hospitalist Medical Records I reviewed the patient's medical records. Lab Data I reviewed the patient's lab results. 12/12/24 09:59 12/12/24 09:59 Radiology Impressions Chest X-Ray 12/12/24 09:35 IMPRESSION: 1. No acute findings. 2. Stable dorsal spine dextroscoliosis Laboratory Results WBC 7.15 10^3/uL (3.29-11.43) 12/12/24 09:59 RBC 4.23 10^6/uL (3.85-5.65) 12/12/24 09:59 Hgb 13.20 g/dL (11.27-16.99) 12/12/24 09:59 Hct 39.0 % (37-53) 12/12/24 09:59 MCV 92.2 fl (82-101) 12/12/24 09:59 MCH 31.2 pg (27-33) 12/12/24 09:59 MCHC 33.8 g/dL (30-55) 12/12/24 09:59 RDW 13.9 % (12.1-15.1) 12/12/24 09:59 Plt Count 71 10^3/cmm (157-399) L 12/12/24 09:59 MPV 11.6 fL (7.4-10.4) H 12/12/24 09:59 Neut % (Auto) 90.3 % 12/12/24 09:59 Lymph % (Auto) 3.2 % 12/12/24 09:59 Camas % (Auto) 4.6 % 12/12/24 09:59 Eos % (Auto) 0.0 % 12/12/24 09:59 Baso % (Auto) 0.4 % 12/12/24 09:59 Neut # (Auto) 6.45 10^3/uL (1.8-7.7) 12/12/24 09:59 Lymph # (Auto) 0.2 10^3/uL (0.8-4.8) L 12/12/24 09:59 [place] # (Auto) 0.3 10^3/uL (0.2-0.9) 12/12/24 09:59 Eos # (Auto) 0.0 10^3/uL (0.0-0.8) 12/12/24 09:59 Baso # (Auto) 0.0 10^3/uL (0.0-0.1) 12/12/24 09:59 Nucleated RBC % (auto) 0 % 12/12/24 09:59 Nucleated RBCs # 0.0 /100WBC 12/12/24 09:59 Specimen Type Arterial 12/12/24 09:41 Sample Site Brachial, left 12/12/24 09:41 ABG pH 7.43 (7.35-7.45) 12/12/24 09:41 ABG pCO2 34.7 mmHg (35-45) L 12/12/24 09:41 ABG pO2 72.5 mmHg (80.0-100.0) L 12/12/24 09:41 ABG PO2/FiO2 Ratio 226 12/12/24 09:41 ABG HCO3 23.2 mmol/L (22-26) 12/12/24 09:41 ABG O2 Saturation 93.4 12/12/24 09:41 ABG Base Excess -0.5 mmol/L (-2.0-2.0) 12/12/24 09:41 Eliazar Test N/a 12/12/24 09:41 A-a O2 Gradient 14.4 mmHg (5-10) H 12/12/24 09:41 Hematocrit 42.6 % (42-52) 12/12/24 09:41 Hgb O2 Saturation 91.6 % (95-100) L 12/12/24 09:41 Carboxyhemoglobin 1.1 %THgb (0.4-20.1) 12/12/24 09:41 Methemoglobin 0.8 % (0.4-1.5) 12/12/24 09:41 Total Hemoglobin 13.9 g/dL (14-18) L 12/12/24 09:41 Sodium 127.0 mmol/L (131-143) L 12/12/24 09:41 Potassium 5.1 mmol/L (3.5-5.0) H 12/12/24 09:41 Glucose 346.0 mg/dL (70-115) H 12/12/24 09:41 Ionized Calcium 1.1 mmol/L (1.1-1.4) 12/12/24 09:41 O2 Delivery Device Nc 12/12/24 09:41 O2 Liters/Min 3.0 % 12/12/24 09:41 FiO2 32.0 % 12/12/24 09:41 [employer] Network Engineer ID Amh 12/12/24 09:41 Sodium 127 mmol/L (136-145) L 12/12/24 09:59 Potassium 5.4 mmol/L (3.5-5.1) H 12/12/24 09:59 Chloride 85 mmol/L (98-107) L 12/12/24 09:59 Carbon Dioxide 19 mmol/L (22-29) L 12/12/24 09:59 Anion Gap 28.4 (5-19) H 12/12/24 09:59 BUN 107 mg/dL (6-20) H* D 12/12/24 09:59 Creatinine 9.0 mg/dL (0.7-1.2) H* 12/12/24 09:59 GFR Calculation 6.1 mL/min (90-130) L 12/12/24 09:59 Glucose 326 mg/dL (65-115) H 12/12/24 09:59 Calculated Osmolality 310 mOsm/kg (285-295) H 12/12/24 09:59 Calcium 8.6 mg/dL (8.5-10.5) 12/12/24 09:59 Total Bilirubin 1.8 mg/dL (0.15-1.2) H 12/12/24 09:59 AST 24 U/L (0-40) 12/12/24 09:59 ALT 21 U/L (0-41) 12/12/24 09:59 Alkaline Phosphatase 119 U/L (40-130) 12/12/24 09:59 Total Protein 6.6 g/dL (6.6-8.7) 12/12/24 09:59 Albumin 2.8 g/dL (3.5-5.2) L 12/12/24 09:59 Globulin 3.8 g/dL (1.3-4.6) 12/12/24 09:59 All radiology interpretation(s) finalized by discharge EKG Data EKG 1: Interpretation: EKG December 12, 2024 101 sinus rhythm first-degree AV block rate of 69 [place] interval 232 QT [address] segment elevation He does have new T wave inversion. 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 Related Data Home Medications ?Medication ?Instructions ?Recorded ?Confirmed pantoprazole 40 mg tablet,delayed 40 mg PO DAILY 07/13/19 12/12/24 release vitamin B complex-vitamin C-folic 1 tab PO DAILY 03/03/22 12/12/24 acid 0.8 mg tablet vit B,C-folic ac 800 mcg-zinc 12.5 1 tab PO DAILY 07/11/23 12/12/24 mg-selen-D3 2,000 unit-vit E tablet (RenaPlex-D) citalopram 10 mg tablet 10 mg PO DAILY 09/14/24 12/12/24 latanoprost 0.005 % eye drops 1 drp ophthalmic (eye) DAILY 09/14/24 12/12/24 minoxidil 2.5 mg tablet 5 mg PO BID 09/14/24 12/12/24 dorzolamide 22.3 mg-timolol 6.8 1 drp ophthalmic (eye) BID 12/08/24 12/12/24 mg/mL eye drops insulin degludec 100 unit/mL (3 20 unit SUBCUT DAILY 12/08/24 12/12/24 mL) subcutaneous pen (Tresiba FlexTouch U-100 insulin) lanthanum 1,000 mg chewable tablet 750 mg PO TID 12/09/24 12/12/24 bisacodyl 10 mg rectal suppository 10 mg [place] DAILY PRN Constipation 12/12/24 12/12/24 (Dulcolax (bisacodyl)) sodium phosphates 19 gram-7 118 ml [place] DAILY PRN Constipation 12/12/24 12/12/24 gram/118 mL enema (Fleet Enema) Previous Rx's ?Medication ?Instructions ?Recorded Discontinue Dressing Changes #1 ea 07/16/22 Diabetic shoes with Accomadative #1 ea 08/14/22 Insoles amlodipine 5 mg tablet 5 mg PO DAILY #90 tabs 09/14/24 polyethylene glycol 3350 17 4 g PO DAILY #238 grams 11/23/24 gram/dose oral powder (Miralax) carvedilol 6.25 mg tablet 12.5 mg (2 x 6.25 mg) PO BID #180 12/09/24 tabs dexamethasone 6 mg tablet 6 mg PO DAILY 5 days #5 tabs 12/09/24 hydralazine 10 mg tablet 10 mg PO Q6H 30 days #120 tabs 12/09/24 lidocaine 5 % topical patch 1 patch topical Q24H PRN pain 7 12/09/24 days #7 ea clonidine HCl 0.1 mg tablet 0.1 mg PO BID PRN for sbp>180 or 12/10/24 dbp>100 30 days #60 tabs hydrocodone 10 mg-acetaminophen 1 - 2 tab PO Q8H PRN pain 3 days 12/10/24 325 mg tablet #18 tabs insulin lispro 100 unit/mL See Rx Instructions .Route 12/10/24 subcutaneous solution (Humalog .COMPLEX #10 mL U-100 Insulin) naloxone 4 mg/actuation nasal 4 mg intranasal Q2M PRN opioid 12/10/24 spray (Narcan) overdose #2 ea naproxen 500 mg tablet 500 mg PO BID PRN pain 7 days #14 12/10/24 tabs Allergies Allergy/AdvReac Type Severity Reaction Status Date / Time No Known Allergies Allergy Verified 11/23/24 01:55
[2024-12-12 09:51] LABS: ABG PCO2 34.7 mmHg (35-45); ABG PH Result 7.43 (7.35-7.45); Alveolar-Arterial Oxygen Gradi 14.4 mmHg (5-10); Arterial Blood Gas Hematocrit 42.6 % (42-52); Base Excess ABG -0.5 mmol/L (-2.0-2.0); Blood Gas Operator Identificat AMH; Blood Gas Sample Site Brachial, left; Blood Gas Sample Type Arterial; Carboxyhemoglobin 1.1 %THgb (0.4-20.1); HCO3 ABG 23.2 mmol/L (22-26); HGB O2 Sat 91.6 % (95-100); Ionized Calcium Level - ABG 1.1 mmol/L (1.1-1.4); Methemoglobin 0.8 % (0.4-1.5); Oxygen Device NC; Oxygen Saturation ABG 93.4; PO2 ABG 72.5 mmHg (80.0-100.0); PO2 FiO2 Ratio Arterial Blood 226; Potassium Level - ABG 5.1 mmol/L (3.5-5.0); Total Hemoglobin 13.9 g/dL (14-18)
[2024-12-12 10:05] LABS: Basophils % 0.4 %; Lymphocytes # 0.2 10^3/uL (0.8-4.8); Lymphocytes % 3.2 %; Mean Corpuscular HGB Conc 33.8 g/dL (30-55); Mean Corpuscular Hemoglobin 31.2 pg (27-33); Mean Corpuscular Volume 92.2 fl (82-101); Mean Platelet Volume 11.6 fL (7.4-10.4); Monocytes # 0.3 10^3/uL (0.2-0.9); Monocytes % 4.6 %; Neutrophils # 6.45 10^3/uL (1.8-7.7); Neutrophils % 90.3 %; Nucleated Red Blood Cells % 0 %; Platelet Count 71 10^3/cmm (157-399); Red Blood Count 4.23 10^6/uL (3.85-5.65); Red Cell Distribution Width 13.9 % (12.1-15.1); White Blood Count 7.15 10^3/uL (3.29-11.43)
--- NOTE | 2024-12-12 10:13 | ECG_ITS ---
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 Measurements Intervals [place] Rate: 69 P: 83 [place]: 232 QRS: 98 QRSD: 177 T: 81 QT: 444 QTc: 476 Interpretive Statements SINUS RHYTHM WITH FIRST DEGREE AV BLOCK RIGHT BUNDLE BRANCH BLOCK [120+ ms QRS DURATION, UPRIGHT V1, 40+ ms S IN I/aVL/V4/V5/V6] ANTEROSEPTAL MYOCARDIAL INFARCTION , OF INDETERMINATE AGE [40+ ms Q WAVE IN V1-V4] ST DEVIATION AND MODERATE T-WAVE ABNORMALITY, CONSIDER LATERAL ISCHEMIA [-0.1+ mV T-WAVE IN I/aVL/V5/V6] Compared to ECG 06/01/2023 02:00:01 Myocardial infarct finding now present T-wave abnormality now present Possible ischemia now present Electronically Signed On 12-14-2024 11:40:23 CDT by Ever Parekh M.D. [email or web address] [id number]
[2024-12-12 10:21] LABS: Alanine Aminotransferase 21 U/L (0-41); Albumin Level 2.8 g/dL (3.5-5.2); Alkaline Phosphatase 119 U/L (40-130); Anion Gap 28.4 (5-19); Aspartate Amino Transferase 24 U/L (0-40); Calcium 8.6 mg/dL (8.5-10.5); Carbon Dioxide 19 mmol/L (22-29); Chloride 85 mmol/L (98-107); Creatinine Clr Calc Pharmacy 12.5105; Globulin 3.8 g/dL (1.3-4.6); Glomerular Filtration Rate 6.1 mL/min (90-130); Glucose 326 mg/dL (65-115); Osmolality Calculated 310 mOsm/kg (285-295); Potassium 5.4 mmol/L (3.5-5.1); Sodium 127 mmol/L (136-145); Total Bilirubin 1.8 mg/dL (0.15-1.2); Total Protein 6.6 g/dL (6.6-8.7)
[2024-12-12 10:24] LABS: Blood Urea Nitrogen 107 mg/dL (6-20)
--- NOTE | 2024-12-12 10:34 | ECG_ITS ---
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 Measurements Intervals [place] Rate: 65 P: 0 TN: 0 QRS: 109 QRSD: 179 T: -85 QT: 460 QTc: 481 Interpretive Statements SINUS RHYTHM WITH BASELINE ARTIFACT RIGHT AXIS DEVIATION [QRS AXIS > 100] RIGHT BUNDLE BRANCH BLOCK [120+ ms QRS DURATION, UPRIGHT V1, 40+ ms S IN I/aVL/V4/V5/V6] Compared to ECG 12/12/2024 10:13:46 Right-axis deviation now present First degree AV block no longer present Myocardial infarct finding no longer present T-wave abnormality still present Possible ischemia still present Electronically Signed On 12-14-2024 11:40:16 CDT by Ever Parekh M.D. [email or web address] [id number]
[2024-12-12] MEDS: HYDROmorphone 0.5 MG/0.5 ML INJ 1 MG IVP (11:04)
[2024-12-12] MEDS: calcium chloride 10% Syr 10 mL 1 GM IVP (11:04)
[2024-12-12] MEDS: insulin regular-human 100 units/1 mL 15 UNIT IVP (11:04)
[2024-12-12 11:05] LABS: Troponin(5th) Baseline 260 ng/L (0-15)
--- NOTE | 2024-12-12 11:33 | CTR_ITS ---
PROCEDURE INFORMATION: Exam: CTA Chest With Contrast Exam date and time: 12/12/2024 2:22 PM Age: 59 years old Clinical indication: Shortness of breath; Additional info: SOB TECHNIQUE: Imaging protocol: Computed tomographic angiography of the chest with contrast. Exam focused on the arteries. 3D rendering (Not supervised by radiologist): MIP and/or 3D reconstructed images were created by the technologist. Radiation optimization: All CT scans at this facility use at least one of these dose optimization techniques: automated exposure control; mA and/or kV adjustment per patient size (includes targeted exams where dose is matched to clinical indication); or iterative reconstruction. Contrast material: OMNIPAQUE 350; Contrast volume: 55 ml; Contrast route: INTRAVENOUS (IV); COMPARISON: CTA Chest-Pulmonary Emb [id number] 06/14/2019 9:45 AM RADIATION DOSE METRICS: Total DLP (mGy-cm): 486.7 FINDINGS: Pulmonary arteries: The contrast density within the pulmonary arteries is suboptimal. Accurate diagnosis of small pulmonary emboli can not be performed. Consider nuclear medicine perfusion scan. Aorta: Unremarkable. No aortic aneurysm. No aortic dissection. Lungs: Right lower lobe parenchymal density probable atelectasis No consolidation. No masses. Pleural spaces: Eventration right hemidiaphragm. No pneumothorax. No pleural effusion. Heart: Heavy coronary artery calcifications moderate cardiomegaly. No pericardial effusion. Lymph nodes: Unremarkable. No enlarged lymph nodes. Bones/joints: Severe osteoarthritis and dextroscoliosis in the dorsal spine.. No acute fracture. Soft tissues: Right renal cyst. CT/CT angio chest PE protcl [id number] IMPRESSION: 1. Suboptimal contrast density within the pulmonary arteries small pulmonary emboli can not be ruled out. Consider nuclear medicine perfusion scan. 2. Heavy coronary artery calcifications. 3. Right lower lobe parenchymal density probable atelectasis. 3. Eventration of the right hemidiaphragm.
--- NOTE | 2024-12-12 11:33 | CTR_ITS ---
PROCEDURE INFORMATION: Exam: CT Head Without Contrast Exam date and time: 12/12/2024 2:19 PM Age: 59 years old Clinical indication: Altered mental status/memory loss; Additional info: AMS TECHNIQUE: Imaging protocol: Computed tomography of the head without contrast. Radiation optimization: All CT scans at this facility use at least one of these dose optimization techniques: automated exposure control; mA and/or kV adjustment per patient size (includes targeted exams where dose is matched to clinical indication); or iterative reconstruction. COMPARISON: CT head wo con* [id number] 04/02/2019 1:22 AM RADIATION DOSE METRICS: Total DLP (mGy-cm): 984.98 FINDINGS: Brain: Normal. No hemorrhage. Unremarkable white matter. No mass effect. Calcifications are seen in the bilateral basal ganglia these findings are stable since prior examination. Cerebral ventricles: No ventriculomegaly. Paranasal sinuses: There is a small mucus collection in the left maxillary sinus it measures 15 mm. Otherwise the sinuses are unremarkable. No fluid levels. Mastoid air cells: Visualized mastoid air cells are well aerated. Bones: Unremarkable. No acute fracture. Soft tissues: Unremarkable. CT/CT head wo con* [id number] IMPRESSION: No acute intracranial abnormality.
--- NOTE | 2024-12-12 11:33 | CTR_ITS ---
PROCEDURE INFORMATION: Exam: CT Abdomen And Pelvis Without Contrast Exam date and time: 12/12/2024 2:22 PM Age: 59 years old Clinical indication: Abdominal pain; Additional info: Distention, pain TECHNIQUE: Imaging protocol: Computed tomography of the abdomen and pelvis without contrast. Radiation optimization: All CT scans at this facility use at least one of these dose optimization techniques: automated exposure control; mA and/or kV adjustment per patient size (includes targeted exams where dose is matched to clinical indication); or iterative reconstruction. COMPARISON: CT abdomen pelvis con [id number] 11/23/2024 2:15 AM RADIATION DOSE METRICS: Total DLP (mGy-cm): 1256.3 FINDINGS: Liver: Hepatomegaly the liver span is 19 cm. No mass. Gallbladder and biliary ducts: Normal. No calcified stones. No ductal dilation. Pancreas: Normal. No ductal dilation. Spleen: Normal. No splenomegaly. Adrenal glands: Normal. No mass. Kidneys and ureters: Bilateral benign renal cysts right side the cyst measures 38 mm x 22 mm, Lower pole right kidney 14 mm x 22 mm The left kidney cyst measures 13 mm. These findings were present on prior examination and appears similar. No additional follow-up is recommended for these lesions. No hydronephrosis. Stomach and bowel: There are multiple diverticuli scattered throughout the sigmoid colon. . No obstruction. No mucosal thickening. Appendix: No evidence of appendicitis. Intraperitoneal space: Unremarkable. No free air. No significant fluid collection. Vasculature: Unremarkable. No abdominal aortic aneurysm. Lymph nodes: Unremarkable. No enlarged lymph nodes. Urinary bladder: Unremarkable as visualized. Reproductive: Unremarkable as visualized. Bones/joints: Lumbar spine osteoarthritis and levoscoliosis. No acute fracture. Soft tissues: Unremarkable. CT/CT abdomen pelvis [facility] [id number] IMPRESSION: 1. Stable bilateral benign renal cysts 2. Hepatomegaly 3. Severe lumbar spine osteoarthritis and levoscoliosis. 4. Diffuse sigmoid colon diverticulosis
--- NOTE | 2024-12-12 11:33 | USCV_ITS ---
Kt Jett Age: 59 Gender: M : 1965 Exam Date: 12/12/2024 16:59 Ordering Phys: José Luis Gonzalez MD Technologist: Justice Caceres Exam Location: [facility] [place] Indication: NSTEMI BP: 115 / 54 HR: 61 Rhythm: Sinus Technical Quality: Adequate MEASUREMENTS (Male / Female) Normal Values 2D ECHO LV Diastolic Diameter PLAX 5.8 cm 4.2 - 5.9 / 3.9 - 5.3 cm IVS Diastolic Thickness 2.1 cm 0.6 - 1.0 / 0.6 - 0.9 cm IVS Systolic Thickness 2.2 cm LVPW Diastolic Thickness 2.7 cm 0.6 - 1.0 / 0.6 - 0.9 cm LVPW Systolic Thickness 3.0 cm LVOT Diameter 2.0 cm LV Ejection Fraction 2D Teich 69.5 % LV Ejection Fraction MOD 4C 53.2 % LV Ejection Fraction MOD 2C 45.8 % LV Ejection Fraction 2C AL 45.1 % LA Diameter 4.1 cm RA Systolic Volume 4C AL 72.9 ml RA Systolic Volume 4C MOD 76.5 ml LA Sys Volume AL 117.7 cm cubed LA Sys Volume Index AL 47.4 cm cubed/m squared Aorta at Sinotubular Diameter 2.5 cm IVC Diameter 2.3 cm M-MODE LA Ao Ratio MM 1.7 AV Cusp Separation MM 1.8 cm DOPPLER AV Peak Velocity 160.0 cm/s LVOT Peak Velocity 79.0 cm/s AV Area Cont Eq vti 1.9 cm squared AV Area Cont Eq pk 1.6 cm squared MV Peak Velocity 128.0 cm/s MV Area PHT 2.9 cm squared Mitral E to A Ratio 1.4 TV Peak Velocity 388.5 cm/s TR Peak Velocity 400.0 cm/s TR Peak Gradient 64.0 mmHg TR Mean Velocity 252.0 cm/s TR Mean Gradient 30.2 mmHg TR Velocity Time Integral 126.7 cm PV Peak Velocity 142.3 cm/s RV Ejection Time 0.3 s FINDINGS Left Ventricle Left ventricle is mildly dilated. LV systolic function is mildly reduced with EF of 45 to 50%. Mild global hypokinesis. Right Ventricle Hypokinetic Right Atrium Normal in size Left Atrium Dilated Mitral Valve Structurally normal mitral valve. Trace mitral regurgitation Aortic Valve Aortic valve is thickened. No significant stenosis or regurgitation. Tricuspid Valve Mild tricuspid regurgitation. Pulmonary artery systolic pressure is normal. Pulmonic Valve Trace pulmonic regurgitation. Pericardium Small pericardial effusion Aorta Normal in size IVC Appears to be dilated CONCLUSIONS Technically limited quality echocardiogram because of poor ultrasonic windows. LV systolic function is mildly reduced with EF of 45-50%. RV hypokinesis noted Trace mitral regurgitation Mild tricuspid regurgitation Trace pulmonic regurgitation. Small pericardial effusion IVC appears to be dilated Ever Parekh MD (Electronically Signed) Final Date: 13 December 2024 14:35 S
--- NOTE | 2024-12-12 11:45 | PC.NURSE ---
THIS NURSE SPOKE WITH DR. AUSTIN TO VERIFY HEPARIN DRIP. VERBAL ORDER GIVEN TO TAKE TO CT FIRST AND THEN WHEN RESULTS COME BACK TO CONSULT AGAIN WITH RESULTS.
[2024-12-12 11:47] LABS: Erythrocyte Sedimentation Rate 47 mm/hr (0-10)
--- NOTE | 2024-12-12 11:48 | P.HP_ITS ---
Providers/Chief Complaint 2 Primary Care Provider: Sandy Kelly MD Chief Complaint: BACK/HIP PAIN History of Present Illness Kt Jett is a 59 year old male with a past medical history of end-stage renal disease on dialysis, type 2 diabetes mellitus, CAD, CHF, recent hospitalization to [facility] for intractable back pain discharged to long term facility, who presents from [place] due to altered mental status. Currently patient is alert to person, not to place, not to time he can answer questions, can follow commands such as moving his bilateral upper and lower extremities, no facial droop, slurring her words, but at times becomes confused, keeps repeating my back is hurting me, he cannot find a comfortable position, at times tries to sit up, he denies any chest pain or shortness of breath, does report abdominal pain, no flank pain, does complain of pain in bilateral lower extremities, at times during my questioning he becomes dazed and confused. I spoke to [facility], they tell me that he was doing okay on Friday, on Friday he would have waxing and waning mentation at times he would be alert awake and carry a conversation was at other times he would become confused, become lethargic, was started slurring his words, then go back to his normal state of being alert and oriented and carry her commands. They tell me that Friday night, he was lethargic, this morning continued to have waxing waning mentation so he was sent to [facility] for evaluation. Review of Systems 2 Const: Denies: fever(s) or chills Card: Denies: chest pain Resp: Denies: dyspnea Musc: Reports: back pain Medications/Allergies Home Medications ?Medication ?Instructions ?Recorded ?Confirmed ?Last Taken ?Type pantoprazole 40 mg tablet,delayed 40 mg PO DAILY 07/1312/12/24 12/12/24 08:00 History release vitamin B complex-vitamin C-folic 1 tab PO DAILY 03/0312/12/24 12/12/24 08:00 History acid 0.8 mg tablet Discontinue Dressing Changes #1 ea 07/16/22 12/12/24 U nknown Rx Diabetic shoes with Accomadative #1 ea 08/14/22 Unknown Rx Insoles vit B,C-folic ac 800 mcg-zinc 12.5 1 tab PO DAILY 06/1412/12/24 12/07/24 History mg-selen-D3 2,000 unit-vit E tablet (RenaPlex-D) amlodipine 5 mg tablet 5 mg PO DAILY #90 tabs 09/1412/12/24 12/12/24 Rx citalopram 10 mg tablet 10 mg PO DAILY 09/14/24 06/08/0712/12/24 08:00 History latanoprost 0.005 % eye drops 1 drp ophthalmic (eye) D AILY 09/14/24 12/12/24 12/11/24 20:00 History minoxidil 2.5 mg tablet 5 mg PO BID 09/14/24 5 12/12/24 09:00 History polyethylene glycol 3350 17 4 g PO DAILY #238 grams 12/12/24 12/12/24 08:00 Rx gram/dose oral powder (Miralax) dorzolamide 22.3 mg-timolol 6.8 1 drp ophthalmic (eye) BID 12/08/24 12/12/24 12/07/24 08:00 History mg/mL eye drops insulin degludec 100 unit/mL (3 20 unit SUBCUT DAILY 0 12/08/24 12/12/24 12/07/24 History mL) subcutaneous pen (Tresiba FlexTouch U-100 insulin) carvedilol 6.25 mg tablet 12.5 mg (2 x 6.25 mg) PO BID #180 12/09/24 12/12/24 12/12/24 09:00 Rx tabs dexamethasone 6 mg tablet 6 mg PO DAILY 5 days #5 tabs 12/09/24 12/12/24 12/12/24 08:00 Rx hydralazine 10 mg tablet 10 mg PO Q6H 30 days #120 ta bs 12/09/24 12/12/24 12/12/24 06:00 Rx lanthanum 1,000 mg chewable tablet 750 mg PO TID 12/0912/12/24 Unknown History lidocaine 5 % topical patch 1 patch topical Q24H PRN p ain 7 12/09/24 12/12/24 Unknown Rx days #7 ea clonidine HCl 0.1 mg tablet 0.1 mg PO BID PRN for sbp> 180 or 12/10/24 12/12/24 Unknown Rx dbp>100 30 days #60 tabs hydrocodone 10 mg-acetaminophen 1 - 2 tab PO Q8H PRN p ain 3 days 12/10/24 12/12/24 12/11/24 Rx 325 mg tablet #18 tabs insulin lispro 100 unit/mL See Rx Instructions .Route 12/10/24 12/12/24 12/11/24 16:00 Rx subcutaneous solution (Humalog .COMPLEX #10 mL U-100 Insulin) naloxone 4 mg/actuation nasal 4 mg intranasal Q2M PRN opioid 12/10/24 12/12/24 Unknown Rx spray (Narcan) overdose #2 ea naproxen 500 mg tablet 500 mg PO BID PRN pain 7 day s #14 12/10/24 12/12/24 Unknown Rx tabs bisacodyl 10 mg rectal suppository 10 mg DC DAILY PRN Constipation 12/12/24 12/12/24 Unknown History (Dulcolax (bisacodyl)) sodium phosphates 19 gram-7 118 ml DC DAILY PRN Consti pation 12/12/24 12/12/24 Unknown History gram/118 mL enema (Fleet Enema) Allergies Allergy/AdvReac Type Severity Reaction Status Date / Time No Known Allergies Allergy Verified 11/23/24 01:55 PFSH Acute 2 PFSH: Medical History (Updated 12/12/24 @ 11:53 by José Luis Gonzalez MD) NSTEMI (non-ST elevated myocardial infarction) Hypertension Essential hypertension MSSA bacteremia Infection due to Port-A-Cath Anemia Hemodialysis access site with arteriovenous graft CAD (coronary artery disease) Hx of staphylococcal infection Chronic back pain Osteoarthritis Fibromyalgia GERD (gastroesophageal reflux disease) CKD (chronic kidney disease) Lumbar disc disease End stage renal disease on dialysis Diabetes mellitus Hypertensive emergency Congestive heart failure ESRD (end stage renal disease) Diabetes mellitus, type II Cardiomyopathy Surgical History Status post insertion of hemodialysis catheter Status post peritoneal dialysis History of coronary artery stent placement S/P tonsillectomy S/P carpal tunnel release H/O circumcision History of cataract surgery Family History Mother Aneurysm Grandmother Cancer Sister Cancer Social History Smoking and tobacco/nicotine status: unknown if used tobacco/nicotine Alcohol intake: never Substance/Drug Use: former 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 Clean since 1991 Lives independently: Yes Household members: none Housing: House Marital status: service: No Current occupational status: disabled Vitals/I&O/Wt Last Vital Signs Temp 98.3 F 12/12/24 09:32 Pulse 68 12/12/24 11:05 Resp 16 12/12/24 09:32 BP 116/44 12/12/24 11:05 Pulse Ox 93 12/12/24 11:05 O2 Del Method Nasal Cannula 12/12/24 11:05 O2 Flow Rate 2 12/12/24 11:05 Weight last 48 hrs Weight 133.81 kg Physical Exam 2 Const: COMMON NORMALS: no acute distress EXAM LIMITATIONS: altered mental status ORIENTATION/CONSCIOUSNESS: Yes awake, Yes oriented to person and Yes confused; not oriented to place and not oriented to time Eye: COMMON NORMALS: Equal, round and reactive pupils present Lymph: LYMPHATIC: no lymphadenopathy noted Resp: COMMON NORMALS: normal respiratory effort, No retractions, No use of accessory muscles and clear to auscultation bilaterally AUSCULTATION: clear to auscultation bilaterally Cardio: COMMON NORMALS: no JVD, regular rate, regular rhythm, S1 normal heart sound present and S2 normal heart sound present RATE: regular rate RHYTHM: regular rhythm HEART SOUNDS: S1 normal heart sound present and S2 normal heart sound present GI: COMMON NORMALS: Normal to inspection, nondistended, normoactive bowel sounds present and Soft to palpation OTHER: diffuse tenderness : COMMON NORMALS: Yes no CVA tenderness Back/Pelvis: OTHER: bilateral paraspinal muscle tenderness L4-L5, no spinal tenderness Extremity: NARRATIVE EXTREMITY EXAM: bilateral lower extremity tenderness Neuro: OTHER: AMS, moves bilateral upper and lower extremities, complaining of low back pain, no facial droop, no slurring of words Data 12/12/24 09:59 12/12/24 09:59 A&P Assessment and plan (1) Encephalopathy acute: (2) NSTEMI (non-ST elevated myocardial infarction): (3) Uremia: (4) Hyponatremia: (5) Polypharmacy: (6) Increased anion gap metabolic acidosis: (7) Hyperglycemia: (8) Diabetes mellitus, type II: (9) ESRD (end stage renal disease): (10) Hypertension: (11) Congestive heart failure: (12) History of coronary artery stent placement: (13) Thrombocytopenia: (14) Intractable back pain: Plan Acute encephalopathy, likely metabolic - Currently alert to person, not place, not to time -Patient can follow simple commands - Waxing and waning mentation -Etiology - Multifactorial -Uremic encephalopathy, BUN 107 -Hyponatremia serum sodium 127 -Possibly polypharmacy from his pain medications -Possible side effect of Decadron -UA ordered -Blood cultures ordered -CT head ordered -CT abdomen pelvis for infectious source - CRP, Pro-Francisco, sed rate Plan - Neurochecks -NIH stroke scale - Nephrology consulted for dialysis Uremic encephalopathy - Nephrology consulted Acute hyponatremia - Nephrology consulted for dialysis Increased anion gap metabolic acidosis - Ketones negative - Plans on dialysis Type 2 diabetes mellitus, A1c 7.8 - Lantus 10 units daily - Low-dose sliding scale NSTEMI - No chest pain complaints - T wave inversions in anterior leads - Cardiac echo - Heparin drip - Recent immobility with back pain venous ultrasound, CT angiogram of the chest Intractable back pain - Dilaudid 0.5 mg IV push every 4 hours as needed Thrombocytopenia, etiology unclear, peripheral smear Full code Heparin for DVT prophylaxis Patient is [employer] does not accept blood products PDMP PDMP Reviewed: Not Reviewed Attestations 2 Medical Necessity Statement*: patient requires hospitalization for acute encephalopathy, uremia, hyponatremia, increased anion gap metabolic acidosis, nstemi, back pain, thrombocytopenia, inpatient, greater than 2 midnights Diagnoses Encephalopathy acute G93.40 NSTEMI (non-ST elevated myocardial infarction) I21.4 Uremia N19 Hyponatremia E87.1 Polypharmacy Z79.899 Increased anion gap metabolic acidosis E87.29 Hyperglycemia R73.9 Type 2 diabetes mellitus with chronic kidney disease on chronic dialysis, unspecified whether director long term care insulin use E11.22; N18.6; Z99.2 Diabetes mellitus director long term care insulin use: unspecified director long term care insulin use status Diabetes mellitus complication status: with kidney complications Diabetes mellitus complication detail: with chronic kidney disease Chronic kidney disease stage: on chronic dialysis ESRD (end stage renal disease) N18.6 Essential hypertension I10 Hypertension type: essential hypertension Other congestive heart failure I50.9 Heart failure type: other History of coronary artery stent placement Z95.5 Thrombocytopenia D69.6 Intractable back pain M54.9
[2024-12-12 11:52] LABS: Ketone (Acetest) Serum Negative (Negative)
[2024-12-12 11:56] LABS: Lactic Sepsis W/Reflex 2.2 mmol/L (0.5-2.2)
[2024-12-12 11:59] LABS: Estmated Average Glucose 177; Hemoglobin A1C 7.8 % (4.0-6.0)
[2024-12-12 12:08] LABS: Reflex Lactate Order REFLEX LACTIC ORDERD
[2024-12-12 12:12] LABS: LAB Peripheral Smear Sent for Review
[2024-12-12 12:12] LABS: Ammonia 28 umol/L (16-60)
[2024-12-12 12:17] LABS: Procalcitonin 3.54 ng/mL (0-0.5); Thyroid Stimulating Hormone 1.22 uIU/mL (0.27-4.20)
[2024-12-12 12:21] LABS: Troponin 5 2HR Delta -11.4 ABS# (0-10)
[2024-12-12 12:22] LABS: Troponin 5 2HR 248.6 ng/L (0-15)
[2024-12-12 12:23] LABS: Alcohol Level < 10 mg/dL (0-10)
--- NOTE | 2024-12-12 12:28 | PM.CONSULT ---
Providers/Reason For Consult Consulting Physician/Specialty*: [facility] Reason for Consult*: ESRD Primary Care Provider: Sandy Kelly MD History of Present Illness History of Present Illness tK Jett is a 59 year old male with past medical history of end-stage renal disease on dialysis per Friday, hypertension, coronary artery disease diabetes , was recently admitted here for Low back pain. He was discharged to rehab on friday. He wa lethargic and wasnt able to carryon conversation. Review of Systems Narrative: unable to obtain Medications/Allergies Home Medications ?Medication ?Instructions ?Recorded ?Confirmed ?Last Taken ?Type pantoprazole 40 mg tablet,delayed 40 mg PO DAILY 07/13/19 12/12/24 12/12/24 08:00 History release vitamin B complex-vitamin C-folic 1 tab PO DAILY 03/03/22 12/12/24 12/12/24 08:00 History acid 0.8 mg tablet Discontinue Dressing Changes #1 ea 07/16/22 12/12/24 Unknown Rx Diabetic shoes with Accomadative #1 ea 08/14/22 12/12/24 Unknown Rx Insoles vit B,C-folic ac 800 mcg-zinc 12.5 1 tab PO DAILY 07/11/23 12/12/24 12/07/24 History mg-selen-D3 2,000 unit-vit E tablet (RenaPlex-D) amlodipine 5 mg tablet 5 mg PO DAILY #90 tabs 09/14/24 12/12/24 12/12/24 Rx citalopram 10 mg tablet 10 mg PO DAILY 09/14/24 12/12/24 12/12/24 08:00 History latanoprost 0.005 % eye drops 1 drp ophthalmic (eye) DAILY 09/14/24 12/12/24 12/11/24 20:00 History minoxidil 2.5 mg tablet 5 mg PO BID 09/14/24 12/12/24 12/12/24 09:00 History polyethylene glycol 3350 17 4 g PO DAILY #238 grams 11/23/24 12/12/24 12/12/24 08:00 Rx gram/dose oral powder (Miralax) dorzolamide 22.3 mg-timolol 6.8 1 drp ophthalmic (eye) BID 12/08/24 12/12/24 12/07/24 08:00 History mg/mL eye drops insulin degludec 100 unit/mL (3 20 unit SUBCUT DAILY 12/08/24 12/12/24 12/07/24 History mL) subcutaneous pen (Tresiba FlexTouch U-100 insulin) carvedilol 6.25 mg tablet 12.5 mg (2 x 6.25 mg) PO BID #180 12/09/24 12/12/24 12/12/24 09:00 Rx tabs dexamethasone 6 mg tablet 6 mg PO DAILY 5 days #5 tabs 12/09/24 12/12/24 12/12/24 08:00 Rx hydralazine 10 mg tablet 10 mg PO Q6H 30 days #120 tabs 12/09/24 12/12/24 12/12/24 06:00 Rx lanthanum 1,000 mg chewable tablet 750 mg PO TID 12/09/24 12/12/24 Unknown History lidocaine 5 % topical patch 1 patch topical Q24H PRN pain 7 12/09/24 12/12/24 Unknown Rx days #7 ea clonidine HCl 0.1 mg tablet 0.1 mg PO BID PRN for sbp>180 or 12/10/24 12/12/24 Unknown Rx dbp>100 30 days #60 tabs hydrocodone 10 mg-acetaminophen 1 - 2 tab PO Q8H PRN pain 3 days 12/10/24 12/12/24 12/11/24 Rx 325 mg tablet #18 tabs insulin lispro 100 unit/mL See Rx Instructions .Route 12/10/24 12/12/24 12/11/24 16:00 Rx subcutaneous solution (Humalog .COMPLEX #10 mL U-100 Insulin) naloxone 4 mg/actuation nasal 4 mg intranasal Q2M PRN opioid 12/10/24 12/12/24 Unknown Rx spray (Narcan) overdose #2 ea naproxen 500 mg tablet 500 mg PO BID PRN pain 7 days #14 12/10/24 12/12/24 Unknown Rx tabs bisacodyl 10 mg rectal suppository 10 mg AL DAILY PRN Constipation 12/12/24 12/12/24 Unknown History (Dulcolax (bisacodyl)) sodium phosphates 19 gram-7 118 ml AL DAILY PRN Constipation 12/12/24 12/12/24 Unknown History gram/118 mL enema (Fleet Enema) Allergies Allergy/AdvReac Type Severity Reaction Status Date / Time No Known Allergies Allergy Verified 11/23/24 01:55 PFSH Acute PFSH: Medical History (Updated 12/12/24 @ 11:53 by José Luis Gonzalez MD) NSTEMI (non-ST elevated myocardial infarction) Hypertension Essential hypertension MSSA bacteremia Infection due to Port-A-Cath Anemia Hemodialysis access site with arteriovenous graft CAD (coronary artery disease) Hx of staphylococcal infection Chronic back pain Osteoarthritis Fibromyalgia GERD (gastroesophageal reflux disease) CKD (chronic kidney disease) Lumbar disc disease End stage renal disease on dialysis Diabetes mellitus Hypertensive emergency Congestive heart failure ESRD (end stage renal disease) Diabetes mellitus, type II Cardiomyopathy Surgical History Status post insertion of hemodialysis catheter Status post peritoneal dialysis History of coronary artery stent placement S/P tonsillectomy S/P carpal tunnel release H/O circumcision History of cataract surgery Family History Mother Aneurysm Grandmother Cancer Sister Cancer Social History Smoking and tobacco/nicotine status: unknown if used tobacco/nicotine Alcohol intake: never Substance/Drug Use: former 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 Clean since 1991 Lives independently: Yes Household members: none Housing: House Marital status: service: No Current occupational status: disabled Vitals/I&O/Wt Last Vital Signs Temp 98.3 F 12/12/24 09:32 Pulse 68 12/12/24 11:05 Resp 16 12/12/24 09:32 BP 116/44 12/12/24 11:05 Pulse Ox 93 12/12/24 11:05 O2 Del Method Nasal Cannula 12/12/24 11:05 O2 Flow Rate 2 12/12/24 11:05 Weight last 48 hrs Weight 133.81 kg Physical Exam Narrative: somnolent , no distress PEERLA s1s2 rrr per report Lungs clear per report Abd- soft , non tender No edema Data 12/13/24 05:04 12/12/24 09:59 A&P Assessment and plan (1) ESRD (end stage renal disease): 1. End-stage renal disease: On MWF schedule, pt admitted with encephalopathy - HD today 2. History of hypertension: Bresume home meds 3. Anemia: Hemoglobin at goal 4. Intractable back pain, from lumbar radiculopathy , 5. History of coronary artery disease 6. Encephalopathy , likely metabolic Patient evaluated using audiovisual cart. Time spent 40 minutes. PDMP PDMP Reviewed: Not Reviewed Consult Attestations Medical Necessity Statement: per katalina Coding Level of Care Code Acute Code for Chg Fwd Diagnoses ESRD (end stage renal disease) N18.6
[2024-12-12 12:30] LABS: C Reactive Protein 222.4 mg/L (0.0-4.9)
[2024-12-12 12:31] LABS: Acetaminophen < 5.0 ug/mL (10-30); Salicylate < 0.3 mg/dL (3-10)
[2024-12-12 12:49] LABS: NT Pro B Type Natriuretic Pept > 70000 pg/mL (0-125)
[2024-12-12] MEDS: norepinephrine 4 MG/250 ML BAG 15 MG IV (12:50)
[2024-12-12] MEDS: fentaNYL 50 mcg/mL INJ 2mL IVP (12:58)
[2024-12-12] MEDS: midazolam 1 mg/mL INJ 2 mL 2 MG IVP (12:59)
--- NOTE | 2024-12-12 13:04 | XRR_ITS ---
PROCEDURE INFORMATION: Exam: XR Chest Exam date and time: 12/12/2024 1:12 PM Age: 59 years old Clinical indication: Other vascular access device placement or adjustment; Central line, non-tunnelled; Central line confirmation; Additional info: Post central line placement TECHNIQUE: Imaging protocol: Radiologic exam of the chest. Views: 1 view. COMPARISON: CR (CHEST, ) 12/12/2024 9:57 AM FINDINGS: Tubes, catheters and devices: Right central line is in the SVC. Lungs: Low lung volumes are seen. No consolidation. Pleural spaces: Eventration right hemidiaphragm No pleural effusion. No pneumothorax. Heart/Mediastinum: Unremarkable. No cardiomegaly. Bones/joints: Dorsal spine dextroscoliosis XR/XR chest 1V portable 10671 IMPRESSION: 1. No acute findings. 2. Low lung volumes. 3. Right-sided central line in the SVC. 4. Dorsal spine dextroscoliosis. 5. Eventration of the right hemidiaphragm.
--- NOTE | 2024-12-12 13:32 | ECG_ITS ---
WTFast Test Date: 2024-12-12 Pat Name: Kt Jett Department: Room: Gender: Male Column Precaster: : 1965 Requested By: Sacha Fountain Order Number: [id number] Reading MD: DIDIER CHEUNG Measurements Intervals [place] Rate: 70 P: 86 AR: 226 QRS: 97 QRSD: 186 T: 6 QT: 450 QTc: 487 Interpretive Statements SINUS RHYTHM WITH FIRST DEGREE AV BLOCK RIGHT BUNDLE BRANCH BLOCK [120+ ms QRS DURATION, UPRIGHT V1, 40+ ms S IN I/aVL/V4/V5/V6] MODERATE T-WAVE ABNORMALITY, CONSIDER ANTEROLATERAL ISCHEMIA [-0.1+ mV T-WAVE IN V3-V6] Compared to ECG 12/12/2024 10:35:55 First degree AV block now present Right-axis deviation no longer present T-wave abnormality still present Possible ischemia still present Electronically Signed On 12-15-2024 23:02:15 CDT by DIDIER CHEUNG [email or web address]
--- NOTE | 2024-12-12 13:50 | PM.CCN ---
Critical Care Event Note Patient had been admitted and was still in the emergency room began to decompensate became hypotensive IV access was difficult. Dr. Wilkes consulted us to place a central line. Central line placed patient is receiving Levophed through the central line further management per hospitalist service Critical Care Time Code activated: No Critical Care Time (min): 0 Procedures Central Line Placement^ Right SC: Time out performed: Yes Patient placed on monitor/pulse ox: Yes MD prep: mask, gown and gloves Central line prep: Chlorhexidine scrub Local anesthesia used: lidocaine 1% Amount of anesthesia used (ml): 4 Ultrasound used for placement: Yes Central line lumen inserted: triple Post procedure: sutured in place, good blood return, all ports aspirated, flushed, capped and sterile dressing applied Post procedure x-ray: tip of catheter in good position and no pneumothorax seen Patient tolerated procedure: well Complications: none Procedural Sedation Indications: other (Central line placement) ASA class: I Preparation: court recording monitor applied, pulse oximeter, supplemental O2 applied, suction/airway equipment at bedside and IV secured Fentanyl: IV Fentanyl dose (mcg): 50 Midazolam: IV Midazolam dose (mg): 2 Additional comments: Patient encephalopathic not able to follow instructions remain still for central line placement procedural sedation done to accommodate safe placement of the central line. Patient tolerated well no complications RT present throughout the entire procedure. Coding Level of Care Code Acute Code for Chg Fwd
[2024-12-12 14:00] LABS: Lactic Acid level (Lactate) 3.1 mmol/L (0.5-2.2)
[2024-12-12] MEDS: piperacillin-tazobactam 3.375 GM in sodium chloride 0.9% (plus) 50 ML IV (14:00)
[2024-12-12] MEDS: pantoprazole 40 mg SDV IVP (14:00)
[2024-12-12] MEDS: vancomycin 2,000 MG/400 ML PIGGYBACK 200 MG IV (14:00)
[2024-12-12] MEDS: iohexol 350 mg/mL 500 mL Btl (per mL) IV (14:36)
[2024-12-12] MEDS: heparin drip 25,000 UNIT/500 ML PREMIX 37.47 UNIT IV (15:55)
--- NOTE | 2024-12-12 16:15 | PHA.VACGOAL ---
Vancomycin Goal - Goal Vancomycin Goal:: 15-20 mg/L Vancomycin Indication:: Other (SEPSIS) - Therapy Current therapy:: Pip/Tazo Day of therpy:: Day [1]of [] . Actual body weight (kg): 117.48 kg - Data Labs: WBC 7.15 10^3/uL (3.29-11.43) 12/12/24 09:59 RBC 4.23 10^6/uL (3.85-5.65) 12/12/24 09:59 Hgb 13.20 g/dL (11.27-16.99) 12/12/24 09:59 Hct 39.0 % (37-53) 12/12/24 09:59 MCV 92.2 fl (82-101) 12/12/24 09:59 MCH 31.2 pg (27-33) 12/12/24 09:59 MCHC 33.8 g/dL (30-55) 12/12/24 09:59 RDW 13.9 % (12.1-15.1) 12/12/24 09:59 Sodium 127 mmol/L (136-145) L 12/12/24 09:59 Potassium 5.4 mmol/L (3.5-5.1) H 12/12/24 09:59 Chloride 85 mmol/L (98-107) L 12/12/24 09:59 Carbon Dioxide 19 mmol/L (22-29) L 12/12/24 09:59 Anion Gap 28.4 (5-19) H 12/12/24 09:59 BUN 107 mg/dL (6-20) H* D 12/12/24 09:59 Creatinine 9.0 mg/dL (0.7-1.2) H* 12/12/24 09:59 GFR Calculation 6.1 mL/min (90-130) L 12/12/24 09:59 Treatment plan:: new consult Regimen:: New start vancomycin for Sepsis. No prior vancomycin history found. Load dose of 2000 mg ordered. Patient receiving dialysis today 12/12/24.
[2024-12-12 16:31] LABS: D Dimer 6.22 ug/mLFEU (0-0.59)
[2024-12-12 17:29] LABS: Glucose Point of Care 229 mg/dL (70-110)
[2024-12-12] MEDS: perflutren protein-a microsphr 0.22 mg/mL SDV 3 mL IV (17:50)
[2024-12-12] MEDS: insulin lispro 100 unit/1 mL SUBCUT (17:51)
[2024-12-12] MEDS: dorzolamide/timolol Op Soln 10 mL Btl 1 DROP EYE-BOTH (17:52)
[2024-12-12] MEDS: heparin, porcine 1,000 unit/mL INJ 10 mL 1000 UNIT IV (18:02)
--- NOTE | 2024-12-12 18:23 | PC.NURSE ---
remains lethargic at this time unable to tolerate po ,, will respond to stimuli, yells and attempt to hit when turn pt, echo done and preparing for dialysis this pm shunt right upper arm
--- NOTE | 2024-12-12 21:08 | PC.NURSE ---
Lethargy: Patient is very lethargic, oriented to person and place only, only opens eyes to noise, mumbles responses. Dr. Acosta gave telephone orders to make patient NPO and hold evening atorvastatin.
[2024-12-12 21:28] LABS: Glucose Point of Care 138 mg/dL (70-110)
[2024-12-12 23:08] LABS: Partial Thromboplastin Time 51.9 SECONDS (23.9-36.7)
[2024-12-12] MEDS: heparin 5,000 unit/mL INJ 1 mL IVP (23:19)
[2024-12-13] VITALS (79 sets, daily range): BP systolic 102–154; BP diastolic 47–82; PULSE 61–76; RESP 9–25; TEMP 36.8–37.9; O2SAT 91–94; BMI 35.5
--- NOTE | 2024-12-13 00:02 | PC.HD ---
Patient's mentation unchanged after dialysis. Remains obtunded, does not follow instructions.
--- NOTE | 2024-12-13 00:41 | PC.NURSE ---
Levophed titration: Upon arrival to shift levophed was running at 3mcg/min, MAR updated to reflect dose.
[2024-12-13] MEDS: piperacillin-tazobactam 3.375 GM in sodium chloride 0.9% (plus) 50 ML IV ×2 (01:09→14:47)
[2024-12-13] MEDS: HYDROmorphone 0.5 MG/0.5 ML INJ IVP ×3 (03:36→11:14)
[2024-12-13 04:52] LABS: Bacillus cereus group Not Detected (NOT DETECT); Bacillus subtillis group Not Detected (NOT DETECT); Corynebacterium Not Detected (NOT DETECT); Cutibacterium acnes (P.acnes) Not Detected (NOT DETECT); Enterococcus Not Detected (NOT DETECT); Enterococcus faecalis Not Detected (NOT DETECT); Enterococcus faecium Not Detected (NOT DETECT); Lactobacillus species Not Detected (NOT DETECT); Listeria Not Detected (NOT DETECT); Listeria monocytogenes Not Detected (NOT DETECT); Micrococcus Not Detected (NOT DETECT); Pan Candida Not Detected (NOT DETECT); Pan Gram-Negative Not Detected (NOT DETECT); Staphylococcus epidermidis Not Detected (NOT DETECT); Staphylococcus lugdunensis Not Detected (NOT DETECT); Staphylococcus species Detected (NOT DETECT); Streptococcus agalactiae Not Detected (NOT DETECT); Streptococcus anginosus group Not Detected (NOT DETECT); Streptococcus pneumoniae Not Detected (NOT DETECT); Streptococcus pyogenes Not Detected (NOT DETECT); Streptococcus species Not Detected (NOT DETECT); mecA Not Detected (NOT DETECT); mecC Not Detected (NOT DETECT)
[2024-12-13] MEDS: heparin drip 25,000 UNIT/500 ML PREMIX 39 UNIT IV (05:08)
[2024-12-13 05:33] LABS: Basophils # 0.1 10^3/uL (0.0-0.1); Basophils % 0.7 %; Hematocrit 35.1 % (37-53); Lymphocytes # 0.3 10^3/uL (0.8-4.8); Lymphocytes % 3.4 %; Mean Corpuscular HGB Conc 34.5 g/dL (30-55); Mean Corpuscular Hemoglobin 32.2 pg (27-33); Mean Corpuscular Volume 93.4 fl (82-101); Mean Platelet Volume 12.9 fL (7.4-10.4); Monocytes # 0.8 10^3/uL (0.2-0.9); Monocytes % 8.2 %; Neutrophils # 8.55 10^3/uL (1.8-7.7); Neutrophils % 86.7 %; Nucleated Red Blood Cells % 0 %; Platelet Count 58 10^3/cmm (157-399); Red Blood Count 3.76 10^6/uL (3.85-5.65); White Blood Count 9.87 10^3/uL (3.29-11.43)
[2024-12-13 05:51] LABS: Partial Thromboplastin Time 48.3 SECONDS (23.9-36.7)
[2024-12-13 05:53] LABS: Lactate (Lactic Acid level) 1.4 mmol/L (0.5-2.2)
[2024-12-13 06:03] LABS: Procalcitonin 5.17 ng/mL (0-0.5)
[2024-12-13] MEDS: heparin 5,000 unit/mL INJ 1 mL IVP ×2 (06:17→22:27)
[2024-12-13 06:41] LABS: Alanine Aminotransferase 15 U/L (0-41); Albumin Level 2.5 g/dL (3.5-5.2); Alkaline Phosphatase 89 U/L (40-130); Aspartate Amino Transferase 20 U/L (0-40); Blood Urea Nitrogen 78 mg/dL (6-20); C Reactive Protein 251.6 mg/L (0.0-4.9); Calcium 8.1 mg/dL (8.5-10.5); Carbon Dioxide 22 mmol/L (22-29); Creatinine Clr Calc Pharmacy 16.0392; Globulin 2.7 g/dL (1.3-4.6); Glomerular Filtration Rate 8.7 mL/min (90-130); Glucose 205 mg/dL (65-115); Magnesium 2.1 mg/dL (1.7-2.3); Phosphorus 5.7 mg/dL (2.5-4.5); Total Bilirubin 2.9 mg/dL (0.15-1.2); Total Protein 5.2 g/dL (6.6-8.7)
[2024-12-13 07:09] LABS: Chloride 94 mmol/L (98-107); Sodium 134 mmol/L (136-145)
[2024-12-13 07:11] LABS: NT Pro B Type Natriuretic Pept > 70000 pg/mL (0-125)
[2024-12-13] MEDS: insulin glargine 100 units/1 mL 10 UNIT SUBCUT (07:20)
[2024-12-13 07:24] LABS: Osmolality Calculated 307 mOsm/kg (285-295)
[2024-12-13 07:30] LABS: Glucose Point of Care 192 mg/dL (70-110)
--- NOTE | 2024-12-13 09:24 | PC.NURSE ---
Bladder scan - no urine detected via bladder scan. Dialysis nurse Prem Murrieta happened to call at this time and informed staff that the patient makes little to no urine. Additional information, patient suffers from chronic pain due to lumbar disc disease. Primary doctor has been decreasing his home opiate prescription due to recurrent constipation, but patient has been having more episodes of severe uncontrollable pain since.
[2024-12-13] MEDS: insulin lispro 100 unit/1 mL SUBCUT ×3 (09:28→18:02)
[2024-12-13] MEDS: citalopram 20 mg Tablet 10 MG PO (10:07)
[2024-12-13] MEDS: aspirin 81 mg EC Tablet PO (10:07)
[2024-12-13] MEDS: dorzolamide/timolol Op Soln 10 mL Btl 1 DROP EYE-BOTH ×2 (10:08→18:03)
[2024-12-13] MEDS: pantoprazole 40 mg SDV IVP (11:16)
--- NOTE | 2024-12-13 11:40 | USCV_ITS ---
JettKt Age: 59 Gender: M : 1965 Exam Date: 12/13/2024 13:32 Ordering Phys: José Luis Gonzalez MD Technologist: STEPHANIE Exam Location: [facility] [place] Indication: LE pain HISTORY: Lower extremity pain. PROCEDURES: Venous duplex imaging was performed in bilateral lower extremities. The following venous structures were evaluated: common femoral vein, profunda vein, proximal portion of the greater saphenous vein, superficial femoral vein, and the popliteal vein. In addition, the posterior tibial and peroneal trunk were evaluated. Serial compression, augmentation maneuvers, and spectral Doppler flow evaluation were performed. FINDINGS: No evidence of DVT seen in any vessel visualized at this time. CONCLUSIONS No evidence of right lower extremity DVT. No evidence of left lower extremity DVT. Dex Farah MD (Electronically Signed) Final Date: 13 December 2024 15:55 S
--- NOTE | 2024-12-13 12:16 | CT_ITS ---
WS: [id number] CT HEAD TECHNIQUE: Noncontrast CT of the head obtained from the skullbase to the vertex. CLINICAL INFORMATION: SUdden onset blindness COMPARISON: CT 12/12/2024 DLP: 1958.[address] scans at [facility] use at least one of these dose optimization techniques: automated exposure control; mA and/or kV adjustment per patient size (includes targeted exams where dose is matched to clinical indication); or iterative reconstruction. FINDINGS: No evidence of intracranial hemorrhage or mass effect. Ventricular system and basal cisterns are patent. Minimal small vessel changes. No extra-axial fluid collections. No evidence of mass or mass effect. Normal amanda-white differentiation. Retention cyst or polyp LEFT maxillary sinus measuring 1.5 cm. Mastoid air cells are well aerated. Vascular calcification. CT/CT head wo con* [id number] IMPRESSION: 1. No evidence of intracranial hemorrhage or mass effect. 2. No acute intracranial findings.
--- NOTE | 2024-12-13 12:23 | MR_ITS ---
WS: [id number] MRI BRAIN WITHOUT CONTRAST HISTORY: cva COMPARISON: None available. TECHNIQUE: Diffusion imaging, multiplanar T1, T2 and FLAIR imaging obtained. Study is compromised by motion. Very subtle areas of diffusion abnormality in the LEFT ortega radiata. Suspicious for very tiny acute infarcts. No hemorrhage. Mild cerebral atrophy and volume loss. Ventricles and extra-axial spaces are normal. No inferior displacement of cerebellar tonsils. The sella turcica and pituitary gland are unremarkable. Dural venous sinuses and lumbee of Leyva demonstrate no abnormality on this unenhanced studies. Paranasal sinuses: Clear. Mastoid air cells: Normal. Calvarium and scalp: Intact. MR/MR head wo con* [id number] IMPRESSION: 1. Very small acute lacunar infarcts in the LEFT ortega radiata. These may be along the watershed distribution between arterial territories. No hemorrhage. 2. Otherwise mild cerebral and cerebellar volume loss and atrophy.
--- NOTE | 2024-12-13 12:23 | CT_ITS ---
WS: [id number] CTA HEAD AND NECK TECHNIQUE: Contrast enhanced CTA of the head and neck with coronal and sagittal reformatted images and maximum intensity projection (MIP) images. NASCET criteria utilized. CLINICAL INFORMATION: cva COMPARISON: None. DLP: 1958.[address] scans at [facility] use at least one of these dose optimization techniques: automated exposure control; mA and/or kV adjustment per patient size (includes targeted exams where dose is matched to clinical indication); or iterative reconstruction. FINDINGS: RIGHT: No significant RIGHT ICA stenosis. LEFT: No significant LEFT ICA stenosis. Mild calcified atheromatous plaque LEFT carotid bulb. Codominant and patent vertebral arteries bilaterally. INTRACRANIAL CTA: Dense cavernous carotid calcification. Moderate to advanced intracranial atheromatous disease with areas of segmental stenosis. Normal vascularity to the CARISSA and proximal MCA territory. Distal MCA vessels appear patent. Distal vertebral arteries are patent with moderate calcification RIGHT greater than LEFT. Basilar artery is patent. Moderate to severe segmental stenosis in the DISCHARGE COORDINATOR territories bilaterally. Lung apices are well aerated. Moderate spondylitic changes cervical spine. Prominent lymph nodes at the thoracic inlet nonspecific but may be reactive. CT/CT angio headneck* [id number] IMPRESSION: 1. No significant cervical ICA stenosis. 2. Moderate to advanced intracranial atheromatous disease with segmental narro wing appears advanced for patient this age. 3. Dense cavernous carotid calcification. 4. Moderate to severe segmental stenosis involving the DISCHARGE COORDINATOR territories bilater ally RIGHT greater than LEFT. Basilar artery remains patent. Distal vessels ap pear patent
[2024-12-13] MEDS: iohexol 350 mg/mL 500 mL Btl (per mL) IV (12:45)
--- NOTE | 2024-12-13 12:46 | PM.CONSULT ---
Providers/Reason For Consult Consulting Physician/Specialty*: Gordon Momin MD neurology and epilepsy Reason for Consult*: Episode of vision loss in patient with confusion, heart disease and encephalopathy Attending Physician: José Luis Gonzalez MD Primary Care Provider: Sandy Kelly MD History of Present Illness History of Present Illness Kt Jett is a 59 year old male with a history of chronic renal failure requiring hemodialysis, heart disease, congestive heart failure, and cardiomyopathy. The patient was reported to be admitted approximately 5 days ago secondary to fall and back pain. The patient was readmitted on 12/12/2024 secondary to altered mental status and concerns for sepsis. Blood cultures reported to be negative. The patient received dialysis but continues to report confusion. On 12/13/2024 the nurses were assisting the patient up in a chair and he reported inability to see. As result neurology consult was obtained. At the bedside the patient reported that he cannot see and then he will say he cannot see his somewhat confused. He is complaining of back pain. Patient moving all extremities. Speech is clear. Pupils 3 mm and reactive to light. Note: Patient on IV heparin therefore patient is not a candidate for intravenous thrombolytics and no intravenous thrombolytics were administered. Patient will be scheduled for noncontrast head CT as well as noncontrast head MRI to assess for occipital lobe strokes or hemorrhage NIH stroke score =3 (complaining of blindness in both eyes). Point of contact glucose [address] 12/12/2024, negative for acute finding Repeat noncontrast head CT 12/13/2024, results pending Drug allergies: None Current medications: Clonidine 0.1 mg p.o. twice daily as needed for elevated blood pressure Dexamethasone 6 mg p.o. daily for 5 days Timolol eyedrops twice a day Hydralazine 10 mg p.o. every 6 hours Insulin 20 units subcutaneously dailyLanthanum 750 mg p.o. 3 times daily Latanoprost eyedrop 0.05% daily Lidocaine patch every 24 hours Minoxidil 2.5 mg p.o. twice daily Protonix 40 mg p.o. daily Naproxen 500 mg p.o. twice daily as needed RenaPlex 1 p.o. 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 Habits: Unknown Family history: Unknown Review of Systems General: Reports: 10 or more systems reviewed and unremarkable except in HPI and below Eyes: Reports: change in vision Musc: Reports: back pain Medications/Allergies Home Medications ?Medication ?Instructions ?Recorded ?Confirmed ?Last Taken ?Type pantoprazole 40 mg tablet,delayed 40 mg PO DAILY 07/13/19 12/12/24 12/12/24 08:00 History release vitamin B complex-vitamin C-folic 1 tab PO DAILY 03/03/22 12/12/24 12/12/24 08:00 History acid 0.8 mg tablet Discontinue Dressing Changes #1 ea 07/16/22 12/12/24 Unknown Rx Diabetic shoes with Accomadative #1 ea 08/14/22 12/12/24 Unknown Rx Insoles vit B,C-folic ac 800 mcg-zinc 12.5 1 tab PO DAILY 07/11/23 12/12/24 12/07/24 History mg-selen-D3 2,000 unit-vit E tablet (RenaPlex-D) amlodipine 5 mg tablet 5 mg PO DAILY #90 tabs 09/14/24 12/12/24 12/12/24 Rx citalopram 10 mg tablet 10 mg PO DAILY 09/14/24 12/12/24 12/12/24 08:00 History latanoprost 0.005 % eye drops 1 drp ophthalmic (eye) DAILY 09/14/24 12/12/24 12/11/24 20:00 History minoxidil 2.5 mg tablet 5 mg PO BID 09/14/24 12/12/24 12/12/24 09:00 History polyethylene glycol 3350 17 4 g PO DAILY #238 grams 11/23/24 12/12/24 12/12/24 08:00 Rx gram/dose oral powder (Miralax) dorzolamide 22.3 mg-timolol 6.8 1 drp ophthalmic (eye) BID 12/08/24 12/12/24 12/07/24 08:00 History mg/mL eye drops insulin degludec 100 unit/mL (3 20 unit SUBCUT DAILY 12/08/24 12/12/24 12/07/24 History mL) subcutaneous pen (Tresiba FlexTouch U-100 insulin) carvedilol 6.25 mg tablet 12.5 mg (2 x 6.25 mg) PO BID #180 12/09/24 12/12/24 12/12/24 09:00 Rx tabs dexamethasone 6 mg tablet 6 mg PO DAILY 5 days #5 tabs 12/09/24 12/12/24 12/12/24 08:00 Rx hydralazine 10 mg tablet 10 mg PO Q6H 30 days #120 tabs 12/09/24 12/12/24 12/12/24 06:00 Rx lanthanum 1,000 mg chewable tablet 750 mg PO TID 12/09/24 12/12/24 Unknown History lidocaine 5 % topical patch 1 patch topical Q24H PRN pain 7 12/09/24 12/12/24 Unknown Rx days #7 ea clonidine HCl 0.1 mg tablet 0.1 mg PO BID PRN for sbp>180 or 12/10/24 12/12/24 Unknown Rx dbp>100 30 days #60 tabs hydrocodone 10 mg-acetaminophen 1 - 2 tab PO Q8H PRN pain 3 days 12/10/24 12/12/24 12/11/24 Rx 325 mg tablet #18 tabs insulin lispro 100 unit/mL See Rx Instructions .Route 12/10/24 12/12/24 12/11/24 16:00 Rx subcutaneous solution (Humalog .COMPLEX #10 mL U-100 Insulin) naloxone 4 mg/actuation nasal 4 mg intranasal Q2M PRN opioid 12/10/24 12/12/24 Unknown Rx spray (Narcan) overdose #2 ea naproxen 500 mg tablet 500 mg PO BID PRN pain 7 days #14 12/10/24 12/12/24 Unknown Rx tabs bisacodyl 10 mg rectal suppository 10 mg SD DAILY PRN Constipation 12/12/24 12/12/24 Unknown History (Dulcolax (bisacodyl)) sodium phosphates 19 gram-7 118 ml SD DAILY PRN Constipation 12/12/24 12/12/24 Unknown History gram/118 mL enema (Fleet Enema) Allergies Allergy/AdvReac Type Severity Reaction Status Date / Time No Known Allergies Allergy Verified 11/23/24 01:55 Current Medications Generic Name Dose Route Start Last Admin Trade Name Freq PRN Reason Stop Dose Admin Aspirin 81 mg 12/12/24 15:35 12/13/24 10:07 Aspirin 81 Mg Ec Tablet PO 81 mg DAILY NATHANAEL Administration Atorvastatin Calcium 40 mg 12/12/24 21:00 12/12/24 21:10 Atorvastatin 40 Mg Tablet PO Not Given BEDTIME [facility] Citalopram Hydrobromide 10 mg 12/13/24 09:00 12/13/24 10:07 Citalopram 20 Mg Tablet PO 10 mg DAILY NATHANAEL Administration Dorzolamide/Timolol 1 drop 12/12/24 18:00 12/13/24 10:08 Dorzolamide/Timolol Op Soln 10 Ml Btl EYE-BOTH 1 drop BID NATHANAEL Administration Heparin Sodium (Porcine) 0 unit 12/12/24 11:33 12/13/24 06:17 Heparin 5,000 Unit/Ml Inj 1 Ml IVP 2,400 unit PRN PRN Administration Heparin Weight Based Protocol -Subsequent Bolus Protocol Hydromorphone HCl 0.5 mg 12/12/24 14:56 12/13/24 11:14 Hydromorphone 0.5 Mg/0.5 Ml Inj IVP 0.5 mg Q4H PRN Administration PAIN Heparin Sodium/Sodium Chloride 25,000 unit in 500 mls @ 0 mls/hr 12/12/24 11:45 12/13/24 06:18 Heparin Drip IV 15.32 unit/kg/hr CONT NTAHANAEL 41 mls/hr Protocol Titration Per Protocol Norepinephrine Bitartrate 4 mg in 250 mls @ 0 mls/hr 12/12/24 12:45 12/13/24 00:55 Levophed IV 0 mcg/min .Q0M NATHANAEL 0 mls/hr Protocol Titration Per Protocol Piperacillin Sod/Tazobactam 50 mls @ 12.5 mls/hr 12/13/24 02:00 12/13/24 06:11 Sod 3.375 gm/ Sodium Chloride IV Infused Q12H NATHANAEL Infusion Insulin Glargine 10 unit 12/13/24 06:00 12/13/24 07:20 Insulin Glargine 100 Units/1 Ml SUBCUT 10 unit QAM NATHANAEL Administration Insulin Human Lispro 0 unit 12/12/24 15:00 12/13/24 09:28 Insulin Lispro 100 Unit/1 Ml SUBCUT 4 unit TIDWM NATHANAEL Administration Protocol Pantoprazole Sodium 40 mg 12/12/24 11:45 12/13/24 11:16 Pantoprazole 40 Mg Sdv IVP 40 mg Q24H NATHANAEL Administration PFSH Acute PFSH: Medical History (Updated 12/13/24 @ 12:57 by Gordon Momin MD) NSTEMI (non-ST elevated myocardial infarction) Hypertension Essential hypertension MSSA bacteremia Infection due to Port-A-Cath Anemia Hemodialysis access site with arteriovenous graft CAD (coronary artery disease) Hx of staphylococcal infection Chronic back pain Osteoarthritis Fibromyalgia GERD (gastroesophageal reflux disease) CKD (chronic kidney disease) Lumbar disc disease End stage renal disease on dialysis Diabetes mellitus Hypertensive emergency Congestive heart failure ESRD (end stage renal disease) Diabetes mellitus, type II Cardiomyopathy Surgical History Status post insertion of hemodialysis catheter Status post peritoneal dialysis History of coronary artery stent placement S/P tonsillectomy S/P carpal tunnel release H/O circumcision History of cataract surgery Family History Mother Aneurysm Grandmother Cancer Sister Cancer Social History Smoking and tobacco/nicotine status: unknown if used tobacco/nicotine Alcohol intake: never Substance/Drug Use: former 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 Clean since 1991 Lives independently: Yes Household members: none Housing: House Marital status: service: No Current occupational status: disabled Vitals/I&O/Wt Last Vital Signs Temp 99.9 F H 12/13/24 08:15 Pulse 63 12/13/24 09:15 Resp 15 12/13/24 09:15 BP 123/59 12/13/24 09:15 Pulse Ox 93 12/13/24 09:15 O2 Del Method Nasal Cannula 12/13/24 09:09 O2 Flow Rate 2 12/13/24 09:09 12/12/24 12/13/24 12/13/24 22:59 06:59 14:59 Intake Total 968.625 / 1049.125 661.125 / 1710.250 Output Total 3500 / 3500 Balance -2531.375 / -2450.875 661.125 / -1789.750 Weight last 48 hrs Weight 262 lb Weight 267 lb 10.259 oz Weight 259 lb Weight 295 lb Physical Exam Narrative: NIH stroke score =3 (complaining of blindness in both eyes). Point of contact glucose [address] 12/12/2024, negative for acute finding Repeat noncontrast head CT 12/13/2024, results pending The patient is alert and was able to tell me his complete name. He does appear somewhat confused. He does follow commands intermittently. Cranial nerves II through XII reveal pupils 3 mm reactive to light. Extraocular movements appear to be intact. Patient does report inability to see at times but other times he will say he can see. Throat clear. Speech clear. Motor testing grossly nonfocal patient moving all extremities. Patient complaining of low back pain despite the nurse and I attempting to adjust the patient's bed and adjust him in bed. Throat clear. Lungs revealed no obvious wheezing. Heart regular rhythm and rate. Extremities were negative for cyanosis. Data 12/13/24 05:04 12/13/24 05:04 Micro: Microbiology 12/12/24 13:32 Blood Culture - Preliminary Blood Staphylococcus aureus 12/12/24 09:59 Blood Culture - Preliminary Blood Staphylococcus aureus A&P Assessment and plan (1) Encephalopathy acute: Impression: 1. Acute encephalopathy 2. Reports of episodic blindness in both eyes, acute 3. End-stage renal disease on hemodialysis 4. Heart disease/cardiomyopathy/congestive heart failure currently on IV heparin Plan: 1. Agree with obtaining repeat stat noncontrast head CT 12/13/2024 2. Recommend obtaining noncontrast head MRI to assess for occipital lobe stroke 3. Note: Since the patient is on IV heparin, patient is not a candidate for intravenous thrombolytics and no intravenous thrombolytics were administered 4. Agree with obtaining CT angiogram of the head and neck if no contraindications to assess for large vessel occlusion in the posterior circulation 5. Neurochecks and vitals per ICU protocol and NIH stroke protocol (2) Blindness of both eyes: PDMP PDMP Reviewed: Not Reviewed Consult Attestations Medical Necessity Statement: The patient was evaluated by neurology for confusion/encephalopathy and to rule out occipital stroke Coding Level of Care Code 24248 Diagnoses Encephalopathy acute G93.40 Blindness of both eyes H54.3
[2024-12-13 13:03] LABS: Partial Thromboplastin Time 42.3 SECONDS (23.9-36.7)
[2024-12-13 13:42] LABS: Glucose Point of Care 244 mg/dL (70-110)
--- NOTE | 2024-12-13 13:45 | PC.NURSE ---
Late note: at approximately 1200, patient reported to the nurse that he cannot see. Nurse questioned him further about these symptoms as he has a history of glaucoma and already has trouble seeing. Patient tells me that he is totally blind and that this is not his normal. Patient does not track staff in the room. He does not blink if an object is quickly brought to his eyes. Nurse attempted NIH test, but patient continues to be confused (has been since arrival) and either does not understand the questions, or refuses to participate in tests because of back pain. NUrse alerted Dr schuster, who ordered a Stat CT with/without contrast, MRI, and consulted Dr barr. Nurse took patient to CT, which was uneventful. Patient was then taken down to MRI, but while on the table in mri, he refused to lay flat, complains of pain and general discomfort, frequently yelling at staff. Patient received Dilaudid earlier for pain but it had little effect. Unable to get usable images. MRI canceled. Patient taken back to room. Dr schuster ordered Ativan and to try MRI again later today. Concerns for heparin causing bleed/current symptoms. IV heparin stopped. Stat CBC ordered. Will reconsider heparin after results.
[2024-12-13 14:19] LABS: Basophils # 0.1 10^3/uL (0.0-0.1); Basophils % 0.7 %; Eosinophils # 0.1 10^3/uL (0.0-0.8); Eosinophils % 0.5 %; Hematocrit 36.3 % (37-53); Lymphocytes # 0.3 10^3/uL (0.8-4.8); Lymphocytes % 3.5 %; Mean Corpuscular HGB Conc 33.6 g/dL (30-55); Mean Corpuscular Hemoglobin 31.2 pg (27-33); Mean Corpuscular Volume 92.8 fl (82-101); Mean Platelet Volume 12.5 fL (7.4-10.4); Monocytes # 0.9 10^3/uL (0.2-0.9); Monocytes % 9.7 %; Neutrophils # 8.17 10^3/uL (1.8-7.7); Neutrophils % 84.8 %; Nucleated Red Blood Cells % 0 %; Platelet Count 62 10^3/cmm (157-399); Red Blood Count 3.91 10^6/uL (3.85-5.65); Red Cell Distribution Width 14.3 % (12.1-15.1); White Blood Count 9.65 10^3/uL (3.29-11.43)
--- NOTE | 2024-12-13 14:45 | P.PN_ITS ---
Subjective 2 Subjective: remains somnolent and confused Medications: Reviewed: Yes Vitals/I&O/Wt Last Vital Signs Temp 99.9 F H 12/13/24 08:15 Pulse 63 12/13/24 09:15 Resp 15 12/13/24 09:15 BP 123/59 12/13/24 09:15 Pulse Ox 93 12/13/24 09:15 O2 Del Method Nasal Cannula 12/13/24 09:09 O2 Flow Rate 2 12/13/24 09:09 12/12/24 12/13/24 12/13/24 22:59 06:59 14:59 Intake Total 968.625 / 1049.125 661.125 / 1710.250 Output Total 3500 / 3500 Balance -2531.375 / -2450.875 661.125 / -1789.750 Weight last 48 hrs Weight 118.841 kg Weight 121.4 kg Weight 117.48 kg Weight 133.81 kg Physical Exam 2 Narrative: somnolent , no distress PEERLA s1s2 rrr per report Lungs clear per report Abd- soft , non tender No edema Data 12/13/24 05:04 12/13/24 05:04 Micro: Microbiology 12/12/24 13:32 Blood Culture - Preliminary Blood Staphylococcus aureus 12/12/24 09:59 Blood Culture - Preliminary Blood Staphylococcus aureus A&P Assessment and plan (1) ESRD (end stage renal disease): 1. End-stage renal disease: On MWF schedule, pt admitted with encephalopathy - HD done yesterday and HD again today due to uremia and ecephalopathy 2. History of hypertension: resume home meds 3. Anemia: Hemoglobin at goal 4. Intractable back pain, from lumbar radiculopathy , 5. History of coronary artery disease 6. Encephalopathy , likely metabolic Patient evaluated using audiovisual cart. Time spent 40 minutes. PDMP PDMP Reviewed: Not Reviewed Attestations 2 Medical Necessity Statement*: per katalina Coding Level of Care Code Acute Code for Chg Fwd Diagnoses ESRD (end stage renal disease) N18.6
[2024-12-13 14:46] LABS: Slide Review Slide Review Perform
--- NOTE | 2024-12-13 15:08 | PC.OT ---
OT EVALUATION HELD DUE TO CHANGE IN STATUS AND TESTING
[2024-12-13] MEDS: LORazepam 1 MG/0.5 ML injection IVP (15:09)
--- NOTE | 2024-12-13 15:30 | PC.SLP ---
TOOL AND FIXTURE REPAIRER has attempted to see the patient twice today, however, patient was in CT earlier, and now is at MRI. TOOL AND FIXTURE REPAIRER will attempt to follow-up the patient later today.
[2024-12-13] MEDS: heparin, porcine 1,000 unit/mL INJ 10 mL 1000 UNIT IV (16:20)
--- NOTE | 2024-12-13 16:55 | P.PN_ITS ---
Subjective 2 Subjective: - Patient was seen this morning - Currently seen in bed, he is alert to person, to place, not to time he recognizes me as Dr. Gonzalez, no facial droop, slurring of his words, no focal weakness, he is able to move bilateral upper and lower extremities, still complaining of severe back pain, remains diffusely encephalopathic, pupils equal round reactive to light, tracks me around the room, - Afebrile overnight, normotensive does off Levophed -Currently on heparin drip for NSTEMI -CTA was negative for PE -Kt is very uncomfortable in bed, he keeps trying to get up out of bed, due to his severe back pain he reports, - At about 12 PM, I was notified by nurs ing staff that patient was reporting that he cannot see out of bilateral eyes - He had just received Dilaudid he is, c urrently sitting up in a chair, normotensive, on 2 L, no significant tachycardia, - Patient was examined thereafter, pupil s are 2+, but are reactive to light, he does track me around the room, does have a corneal reflex, reports seeing shadows, he does react to the light when) the light to his room, he squints his eyes -He reports seeing nothing currently - No facial droop, slurring of words, no focal weakness, is difficult to assess his NIH stroke scale given global encephalopathy, he is very restless, but I have that his NIH stroke scale at 5 - Unfortunately he is not a candidate fo r TNKase given that he is currently on a heparin drip, his thrombocytopenia, - Spoke to Dr. Momin and, who will im mediately evaluate patient - Patient immediately had a head CT no a cute findings - CTA head and neck showed moderate to s evere segmental stenosis involving MANAGER OF REGULATORY AFFAIRS territory bilaterally right greater than left - MRI of the brain ordered very small ac [place] lacunar infarct in the left ortega radiata -Nursing staff report the patient can no w see -Discussed with neurology - This certainly would not explain his c omplaints of inability to see bilateral eyes, - Patient has had hypotensive episode in the emergency room -No facial droop, slurring words, no foc al weakness - Plan to allow for permissive hypertens ion, continue aspirin, will transition to Plavix once safe based upon his thrombocytopenia, remains on heparin drip for NSTEMI but is 48 hours - We will discuss with ophthalmology - Patient was reexamined in the [facility], he can recognize me as Dr. Gonzalez, he tracks objects, pupils are equal round reactive to light, he at times remains encephalopathic, but nursing staff reports that earlier on he was able to see accurately things outside his room - Patient is alert to person, to place, not to time he can follow commands at times but remains globally encephalopathic I cannot discern a facial droop, no slurring of words, no focal weakness, he is moving bilateral upper lower extremities he is receiving dialysis right now he is actually moving his right arm and the dialysis nurse has to keep his right arm down, he is moving his right leg I cannot discern any focal weakness Vitals/I&O/Wt Last Vital Signs Temp 99.4 F 12/13/24 16:45 Pulse 66 12/13/24 16:45 Resp 20 H 12/13/24 16:45 BP 123/59 12/13/24 16:45 Pulse Ox 92 12/13/24 16:45 O2 Del Method Nasal Cannula 12/13/24 16:45 O2 Flow Rate 2 12/13/24 16:45 12/13/24 12/13/24 12/13/24 06:59 14:59 22:59 Intake Total 661.125 / 1710.250 233.7 / 233.7 0 / 233.7 Balance 661.125 / -1789.750 233.7 / 233.7 0 / 233.7 Weight last 48 hrs Weight 118.841 kg Weight 121.4 kg Weight 117.48 kg Weight 133.81 kg Physical Exam 2 Const: COMMON NORMALS: no acute distress Eye: COMMON NORMALS: Equal, round and reactive pupils present, EOMs intact bilaterally and conjunctivae normal CONJUNCTIVA: Yes conjunctivae normal P UPIL: Yes Equal, round and reactive pupils present Resp: COMMON NORMALS: normal respiratory effort, No retractions, No use of accessory muscles and clear to auscultation bilaterally AUSCULTATION: clear to auscultation bilaterally Cardio: COMMON NORMALS: regular rate, regular rhythm, S1 normal heart sound present and S2 normal heart sound present RATE: regular rate RHYTHM: r egular rhythm HEART SOUNDS: S1 normal heart sound present and S2 normal heart sound present GI: COMMON NORMALS: Normal to inspection, nondistended, normoactive bowel sounds present and non-tender Extremity: COMMON NORMALS: no pedal edema Neuro: COMMON NORMALS: moves all extremities and no focal motor deficits O THER: acute encephalopathy Psych: OTHER: Acute encephalopathy Data 12/13/24 14:07 12/13/24 05:04 Micro: Microbiology 12/12/24 13:32 Blood Culture - Preliminary Blood Staphylococcus aureus 12/12/24 09:59 Blood Culture - Preliminary Blood Staphylococcus aureus A&P Assessment and plan (1) Encephalopathy acute: (2) NSTEMI (non-ST elevated myocardial infarction): (3) Uremia: (4) Hyponatremia: (5) Polypharmacy: (6) Increased anion gap metabolic acidosis: (7) Hyperglycemia: (8) Diabetes mellitus, type II: (9) ESRD (end stage renal disease): (10) Hypertension: (11) Congestive heart failure: (12) History of coronary artery stent placement: (13) Thrombocytopenia: (14) Intractable back pain: (15) Staphylococcus aureus bacteremia: (16) Ischemic cerebrovascular accident (CVA) due to global hypoperfusion with watershed infarction: Plan Staphylococcus aureus bacteremia - Seen in 3 out of 4 blood cultures - Back in 2020, he also had Staph aureus bacteremia, source was subclavian port which was removed - Now with recurrent Staphylococcus aureus bacteremia - He does complain of back pain - Will do a CT scan of his spine - He does have a right arm dialysis fistula in place with 1 ultrasound the dialysis fistula - Cardiology consulted for possible transesophageal echocardiogram - For now continue vancomycin, until sensitivities are back - Does have a history of MRSA Acute CVA due to global hypoperfusion with watershed stroke Head CT no acute findings CTA head and neck CT/CT angio headneck* [id number] IMPRESSION: 1. No significant cervical ICA stenosis. 2. Moderate to advanced intracranial atheromatous disease with segmental narrowing appears advanced for patient this age. 3. Dense cavernous carotid calcification. 4. Moderate to severe segmental stenosis involving the MANAGER OF REGULATORY AFFAIRS territories bilaterally RIGHT greater than LEFT. Basilar artery remains patent. Distal vessels appear patent MRI brain MR/MR head wo con* [id number] IMPRESSION: 1. Very small acute lacunar infarcts in the LEFT ortega radiata. These may be along the watershed distribution between arterial territories. No hemorrhage. 2. Otherwise mild cerebral and cerebellar volume loss and atrophy - Etiology likely secondary to hypotension episode in the emergency room plan: -neurochecks -nih stroke scale -aspirin -will hold on plavix given thromboytopenia -permissive hypertension - Will monitor closely - Avoid hypotensive episodes Bilateral eye blindness - Etiology unclear - Will reach out to ophthalmology Acute encephalopathy, likely metabolic - Currently alert to person, not place, not to time -Patient can follow simple commands - Waxing and waning mentation -Etiology - Multifactorial -Uremic encephalopathy, BUN 107 -Hyponatremia serum sodium 127 -Possibly polypharmacy from his pain medications -Possible side effect of Decadron -Staph aureus bacteremia - Watershed stroke Plan - Neurochecks -NIH stroke scale - Nephrology consulted for dialysis Uremic encephalopathy - Nephrology consulted Acute hyponatremia - Nephrology consulted for dialysis Increased anion gap metabolic acidosis - Ketones negative - Plans on dialysis Type 2 diabetes mellitus, A1c 7.8 - Lantus 10 units daily - Low-dose sliding scale NSTEMI - No chest pain complaints - T wave inversions in anterior leads - Cardiac echo CONCLUSIONS Technically limited quality echocardiogram because of poor ultrasonic windows. LV systolic function is mildly reduced with EF of 45-50%. RV hypokinesis noted Trace mitral regurgitation Mild tricuspid regurgitation Trace pulmonic regurgitation. Small pericardial effusion IVC appears to be dilated - Heparin drip - Recent immobility with back pain venous ultrasound, CT angiogram of the chest Intractable back pain - Possibly withdrawing from his home hydrocodone, resume hydrocodone 10 every 6 hours scheduled Thrombocytopenia, etiology unclear, peripheral smear Full code Heparin for DVT prophylaxis Patient is [employer] does not accept blood products PDMP PDMP Reviewed: Last Reviewed 12/13/24 17:30 by José Luis Gonzalez MD Attestations 2 Medical Necessity Statement*: The patient requires hospitalization for his staph aureus bacteremia, watershed stroke, acute encephalopathy, NSTEMI, bilateral eye blindness Coding Level of Care Code Critical Care >/= 30 minutes Critical care time (in minutes): 45 The high probability of a clinically significant, sudden or life threatening deterioration, as referenced in this documentation, required my full and direct attention, intervention and personal management. The critical care time shown is in addition to time spent performing any reported separately billable procedures and includes the following: [x] Data and vital sign review and interpretation [x ] Patient assessment, examination and intervention [x] Medication orders and management [x] Patient/Family updates as able [x] Care Coordination and Documentation. 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
--- NOTE | 2024-12-13 17:05 | PC.NURSE ---
At 1500, nurse noticed the patient was tracking staff throughout the room. When this nurse asked the patient if he was able to see, the patient said yes. Patient was confused by the question as he had no recollection of not being able to see earlier today. Patient was repeatedly and correctly able to tell nurse how many fingers were being held up, and was able to describe what was playing on tv. Nurse alerted Dr schuster.
[2024-12-13 17:29] LABS: Glucose Point of Care 208 mg/dL (70-110)
--- NOTE | 2024-12-13 17:44 | PC.SLP ---
Patient is in dialysis. SECURITY OPERATIONS SPECIALIST will attempt to follow-up the patient tomorrow.
--- NOTE | 2024-12-13 18:30 | PC.NURSE ---
Shift SUmmary: Patient reported and displayed new onset blindness. (already has baseline poor vision). Concern for occipital stroke but this was ruled out via head CTA and MRI. Concerns for withdrawal. Started on scheduled hydrocodone and PRN ativan. Dialysis received due to receiving contrast with head CT. Patient continues to be confused. Can reliably say his name, But cannot correctly answer any other orientation questions. can be uncooperative at times. Heaprin Drip, next PTT is at 2200.
--- NOTE | 2024-12-13 18:43 | USCV_ITS ---
Kt eJtt Age: 59 Gender: M : 1965 Exam Date: 12/13/2024 19:48 Ordering Phys: José Luis Gonzalez MD Technologist: [employer] Exam Location: [facility] [place] Indication: Dr. Gonzalez was called to clarify this order. He wants the RT arm A-V fistula examined for possible abscess. That is all. Findings Complex fluid collection adjacaent to right arm fistula. Collection measures 2.5 cm. No increased vascularity. Study is limited. This study does not evaluate the graft. Conclusions Complex collection adjacent to fistula, abscess, seroma or hematoma in the differential. Dr. Traci Odom DO (Electronically Signed) Final Date: 14 December 2024 09:27 S
[2024-12-13 21:18] LABS: Glucose Point of Care 159 mg/dL (70-110)
[2024-12-13] MEDS: heparin drip 25,000 UNIT/500 ML PREMIX 41 UNIT IV (21:52)
[2024-12-13] MEDS: latanoprost 0.005% Op Soln 2.5 mL Btl 1 DROP EYE-BOTH (21:53)
[2024-12-13] MEDS: brimonidine 0.2% Op Soln 5 mL Btl 1 DROP EYE-BOTH (21:53)
[2024-12-13] MEDS: atorvastatin 40 mg Tablet PO (21:53)
[2024-12-14] VITALS (51 sets, daily range): BP systolic 97–190; BP diastolic 40–115; PULSE 58–101; RESP 12–25; TEMP 36.4–37.9; O2SAT 91–97
[2024-12-14] MEDS: HYDROcodone-acetaminophen 10-325 mg Tablet 1 TAB PO ×5 (00:26→22:39)
[2024-12-14] MEDS: piperacillin-tazobactam 3.375 GM in sodium chloride 0.9% (plus) 50 ML IV ×2 (02:59→14:43)
--- NOTE | 2024-12-14 04:23 | PC.NURSE ---
NIH STROKE SCALE: Pt mildy confused, unable to properly assess for NIH stroke scale. Pt alert to self, following a few commands such as opening and closing eyes, gripping hands, mumbled speech. Pt weak and unable to fully lift arms/legs off of bed.
[2024-12-14 05:36] LABS: Basophils # 0.1 10^3/uL (0.0-0.1); Basophils % 0.7 %; Eosinophils % 0.2 %; Hematocrit 36.1 % (37-53); Lymphocytes # 0.6 10^3/uL (0.8-4.8); Lymphocytes % 5.8 %; Mean Corpuscular HGB Conc 34.1 g/dL (30-55); Mean Corpuscular Hemoglobin 31.3 pg (27-33); Mean Corpuscular Volume 91.9 fl (82-101); Mean Platelet Volume 12.9 fL (7.4-10.4); Monocytes # 0.9 10^3/uL (0.2-0.9); Neutrophils # 8.59 10^3/uL (1.8-7.7); Neutrophils % 82.3 %; Nucleated Red Blood Cells % 0 %; Platelet Count 80 10^3/cmm (157-399); Red Blood Count 3.93 10^6/uL (3.85-5.65); Red Cell Distribution Width 14.3 % (12.1-15.1); White Blood Count 10.43 10^3/uL (3.29-11.43)
[2024-12-14 05:48] LABS: Alanine Aminotransferase 18 U/L (0-41); Albumin Level 2.4 g/dL (3.5-5.2); Alkaline Phosphatase 105 U/L (40-130); Anion Gap 20.8 (5-19); Aspartate Amino Transferase 27 U/L (0-40); Blood Urea Nitrogen 68 mg/dL (6-20); C Reactive Protein 251.7 mg/L (0.0-4.9); Calcium 8.4 mg/dL (8.5-10.5); Carbon Dioxide 25 mmol/L (22-29); Chloride 93 mmol/L (98-107); Creatinine Clr Calc Pharmacy 17.7254; Globulin 3.4 g/dL (1.3-4.6); Glomerular Filtration Rate 9.9 mL/min (90-130); Glucose 180 mg/dL (65-115); Magnesium 2.2 mg/dL (1.7-2.3); Osmolality Calculated 302 mOsm/kg (285-295); Phosphorus 5.7 mg/dL (2.5-4.5); Potassium 4.8 mmol/L (3.5-5.1); Sodium 134 mmol/L (136-145); Total Bilirubin 4.4 mg/dL (0.15-1.2); Total Protein 5.8 g/dL (6.6-8.7)
[2024-12-14 05:49] LABS: Lactate (Lactic Acid level) 1.2 mmol/L (0.5-2.2)
[2024-12-14 05:59] LABS: INR 1.16 (0.8-1.2)
[2024-12-14 06:00] LABS: Partial Thromboplastin Time 53.1 SECONDS (23.9-36.7)
[2024-12-14] MEDS: insulin glargine 100 units/1 mL 10 UNIT SUBCUT (06:18)
[2024-12-14] MEDS: heparin 5,000 unit/mL INJ 1 mL IVP (06:18)
[2024-12-14 06:21] LABS: Creatine Phosphokinase 51 U/L (39-308); Procalcitonin 5.92 ng/mL (0-0.5)
[2024-12-14 07:40] LABS: NT Pro B Type Natriuretic Pept > 70000 pg/mL (0-125)
--- NOTE | 2024-12-14 08:00 | CT_ITS ---
WS: [id number] CT THORACIC SPINE TECHNIQUE: Contrast-enhanced CT of the thoracic spine with coronal and sagittal reformatted images. CLINICAL INFORMATION: staph aureus COMPARISON: None. DLP: 2541.[address] scans at [facility] use at least one of these dose optimization techniques: automated exposure control; mA and/or kV adjustment per patient size (includes targeted exams where dose is matched to clinical indication); or iterative reconstruction. FINDINGS: S-shaped thoracic scoliosis. No evidence of discitis or osteomyelitis. No evidence of epidural abscess. Moderate spondylitic changes. Anterior hypertrophic changes thoracic spine. Bibasilar atelectasis. Cardiomegaly. Aortic calcification. Coronary calcification. Small esophageal hernia. Splenic artery calcification. RIGHT renal cysts. CT/CT thoracic spine w con [id number] IMPRESSION: 1. No acute thoracic spine findings
--- NOTE | 2024-12-14 08:00 | CT_ITS ---
WS: [id number] CT LUMBAR SPINE TECHNIQUE: Contrast-enhanced CT of the lumbar spine with coronal and sagittal reformatted images. CLINICAL INFORMATION: kiranh aures bacteremia COMPARISON: 12/07/2024 DLP: 2541.[address] scans at [facility] use at least one of these dose optimization techniques: automated exposure control; mA and/or kV adjustment per patient size (includes targeted exams where dose is matched to clinical indication); or iterative reconstruction. FINDINGS: Scoliosis convex LEFT. Advanced spondylitic changes. Spondylitic changes stable compared to 12/07/2024. No evidence of epidural abscess. No evidence of discitis or osteomyelitis. Disc narrowing worse at L4-L5 and L5-S1 unchanged. Anterior hypertrophic changes. Vascular calcification. No evidence of paravertebral abscess. No other acute findings. CT/CT lumbar spine w con [id number] IMPRESSION: 1. No evidence of discitis/osteomyelitis. No evidence of epidural abscess. 2. Advanced spondylitic changes stable since 12/07/2024
--- NOTE | 2024-12-14 08:00 | CT_ITS ---
WS: [id number] CT CERVICAL MYELOGRAM TECHNIQUE: CT of the cervical spine coronal and sagittal reformatted images post intrathecal administration of contrast. CLINICAL INFORMATION: staph aureus DLP: 652.[address] scans at [facility] use at least one of these dose optimization techniques: automated exposure control; mA and/or kV adjustment per patient size (includes targeted exams where dose is matched to clinical indication); or iterative reconstruction. FINDINGS: Moderate spondylitic changes. Mild cervical curve. No evidence of epidural abscess or discitis. No evidence of osteomyelitis. Disc narrowing worse at C6-7 and C7-T1. Severe bilateral bony foraminal narrowing C6-7. Mild central canal stenosis C3-C4 C5-C6 C6-C7 CT/CT cervical spine w con [id number] IMPRESSION: 1. Moderate spondylitic changes. 2. No evidence of discitis or osteomyelitis. 3. No evidence of epidural abscess
[2024-12-14] MEDS: LORazepam 1 MG/0.5 ML injection 0.5 MG IVP (08:08)
[2024-12-14 08:09] LABS: Glucose Point of Care 195 mg/dL (70-110)
[2024-12-14] MEDS: insulin lispro 100 unit/1 mL SUBCUT ×2 (08:20→11:50)
[2024-12-14] MEDS: HYDROmorphone 0.5 MG/0.5 ML INJ IVP (08:41)
[2024-12-14] MEDS: iohexol 350 mg/mL 500 mL Btl (per mL) IV ×2 (09:37→21:19)
[2024-12-14] MEDS: heparin drip 25,000 UNIT/500 ML PREMIX 45 UNIT IV (09:52)
[2024-12-14] MEDS: vancomycin 500 MG in sodium chloride 0.9% (plus) 100 ML 200 MG IV ×2 (10:24→21:51)
[2024-12-14] MEDS: dorzolamide/timolol Op Soln 10 mL Btl 1 DROP EYE-BOTH ×2 (10:29→17:21)
[2024-12-14] MEDS: brimonidine 0.2% Op Soln 5 mL Btl 1 DROP EYE-BOTH ×3 (10:29→21:59)
--- NOTE | 2024-12-14 11:13 | PC.NURSE ---
academic services coordinator rounds at 1030- patient is resting quietly, spoke to primary RN and was given updates about the patient's condition and stroke assessments.
[2024-12-14] MEDS: pantoprazole 40 mg SDV IVP (11:41)
[2024-12-14 11:56] LABS: Glucose Point of Care 199 mg/dL (70-110)
--- NOTE | 2024-12-14 12:56 | CTR_ITS ---
PROCEDURE INFORMATION: Exam: CTA Right Upper Extremity With Contrast Exam date and time: 12/14/2024 9:28 PM Age: 59 years old Clinical indication: Device placement; Other: Dialysis fistula; Prior surgery; Surgery date: 6+ months; Additional info: evaluate dialysis fistula for abscess or infection TECHNIQUE: Imaging protocol: Computed tomographic angiography of the right upper extremity with contrast, including non-contrast images if performed. 3D rendering (Not supervised by radiologist): MIP and/or 3D reconstructed images were created by the technologist. Radiation optimization: All CT scans at this facility use at least one of these dose optimization techniques: automated exposure control; mA and/or kV adjustment per patient size (includes targeted exams where dose is matched to clinical indication); or iterative reconstruction. Contrast material: OMNI 350; Contrast volume: 100 ml; Contrast route: INTRAVENOUS (IV); COMPARISON: CT angio headneck* [id number] 12/13/2024 12:39 PM RADIATION DOSE METRICS: Total DLP (mGy-cm): 5293.91 FINDINGS: Right subclavian artery: No occlusion or significant stenosis. Axillary artery: No occlusion or significant stenosis. Brachial artery: No occlusion or significant stenosis. Radial artery: No occlusion or significant stenosis. Ulnar artery: There is a patent arteriovenous fistula between the ulnar artery and cephalic vein. Lungs: Partial imaging through the chest demonstrates right lower lobe airspace opacity. Bones/joints: There is mild glenohumeral arthropathy. Os acromiale noted. Moderate acromioclavicular osteoarthritis with subcortical cyst formation. No acute fracture or destructive bony lesion. Soft tissues: There is edema involving the right deltoid muscle with numerous gas bubbles in the soft tissues. There may be a fluid collection containing a gas bubbles measuring approximately 3.5 x 1.2 x 2.1 cm (series 10, image 48 and series 12, image 99). In the distal aspect of the upper arm posterior to the proximal venous outflow, there is a circumscribed low-attenuation focus measuring 10 x 10 x 19 mm may be a small seroma or hemat[place]. [place] [id number] IMPRESSION: 1. There is diffuse edema of the deltoid concerning for myositis.. A collection of gas bubbles and low-attenuation material suggests developing abscess along the deep margin of the deltoid. 2. Patent right upper extremity arteriovenous fistula. There is a 1.9 cm low-attenuation collection posterior to the proximal aspect of the venous outflow which could be a small seroma or hematoma. No regional inflammatory change. 3. Right lower lobe airspace opacity is concerning for pneumonia. 4. Degenerative change noted in the right shoulder with findings including os acromiale.
--- NOTE | 2024-12-14 13:10 | P.PN_ITS ---
Subjective 2 Subjective: Patient is lethargic but arousable. he is on 2L o2 Vitals/I&O/Wt Last Vital Signs Temp 98.5 F 12/14/24 04:00 Pulse 70 12/14/24 07:37 Resp 23 H 12/14/24 06:00 BP 140/54 12/14/24 06:00 Pulse Ox 93 12/14/24 07:37 O2 Del Method Nasal Cannula 12/14/24 07:37 O2 Flow Rate 2 12/14/24 07:37 12/13/24 12/14/24 12/14/24 22:59 06:59 14:59 Intake Total 813.35 / 1047.05 336.833 / 1383.883 140.617 / 140.617 Output Total 3000 / 3000 Balance -2186.65 / -1952.95 336.833 / -1616.117 140.617 / 140.617 Weight last 48 hrs Weight 118 kg Weight 116 kg Weight 118.841 kg Weight 121.4 kg Weight 117.48 kg Physical Exam 2 Narrative: GEN: nad, lethargic HEAD: normocephalic, atraumatic EYES: eyes are closed HEENT: mmm NECK: no jvd CV: rrr LUNGS: diminished BS ABD: soft, nt, nd EXT: NO LE edema NEURO: lethargic SKIN: no rash Data 12/14/24 05:00 12/14/24 05:00 Micro: Microbiology 12/14/24 05:09 Blood Culture - Preliminary Blood SPECIMEN COLLECTED 12/14/24 05:00 Blood Culture - Preliminary Blood SPECIMEN COLLECTED 12/12/24 13:32 Blood Culture - Preliminary Blood Staphylococcus aureus 12/12/24 09:59 Blood Culture - Preliminary Blood Staphylococcus aureus A&P Assessment and plan (1) ESRD (end stage renal disease): Plan 1. End-stage renal disease- he is on maintenance HD on a MWF schedule. he had hd on 12/12 and 12/13 due to encephalopathy. he received IV contrast and will have hd today and tomorrow 2. History of hypertension- resume home meds 3. Anemia in ckd- Hemoglobin at goal 4. Intractable back pain- due to lumbar radiculopathy , 5. History of coronary artery disease 6. Encephalopathy- likely metabolic PDMP PDMP Reviewed: Not Reviewed Attestations 2 Medical Necessity Statement*: sepsis, esrd Time Spent in Patient Care: 25 minutes Coding Level of Care Code Acute Code for Chg Fwd Diagnoses ESRD (end stage renal disease) N18.6
[2024-12-14 13:11] LABS: Partial Thromboplastin Time 53.8 SECONDS (23.9-36.7)
--- NOTE | 2024-12-14 13:17 | P.CONIM_ITS ---
<Statement entered by Herbie Clark MD - 12/14/24 20:15> Patient was evaluated and cared for in conjunction with an advanced practice practitioner. I personally examined the patient and reviewed the chart and all pertinent data including imaging, telemetry, and laboratory results. I discussed the patient in detail with the advanced practice practitioner. Please see their note for complete H&P testing result and agreed upon plan of care for the patient. 59-year-old male past medical history significant for coronary artery disease hypertension hyperlipidemia chronic kidney disease on dialysis presented with encephalitis back pain growing Staph aureus, we have been asked to rule out bacterial endocarditis with transesophageal echocardiogram. GENERAL: Patient is somnolent, but arousable, oriented x 3 HEART: Regular S1 and S2. No murmur, rub or gallop. LUNGS: Clear to auscultate bilaterally. CENTRAL NERVOUS SYSTEM: Grossly nonfocal. EXTREMITIES: Lower extremities with out edema bilaterally. Bacteremia with Staph aureus Transesophageal echocardiogram to rule out endocarditis Providers/Reason For Consult 2 Consulting Physician/Specialty*: Dr. Clark Reason for Consult*: staph bacteremia of unknown source Requesting Physician: dr. Gonzalez Attending Physician: José Luis Gonzalez MD Primary Care Provider: Sandy Kelly MD History of Present Illness History of Present Illness Kt Jett is a 59 year old male with a past medical history of end-stage renal disease that is on dialysis, type 2 diabetes, CAD, CHF, fistula placement, who [facility] with intractable [facility]. He usually gets dialysis Friday. Patient was found to be encephalopathic. His potassium was elevated at 5.4, BUN over 100, mental status was altered, EKG showed T wave inversions in V45 and 6. Lactic acid was 3.1. Creatinine 5.9. EF showed ejection fraction of 45 to 50% with right ventricular hypokinesis. He was found to have a proBNP greater than 70,000. Troponins so far were 260-248. On my assessment, patient was alert but confused at times. He stated he has not had any chest pain or shortness of breath. Clinically, appears euvolemic. He is currently off of his levophed. Blood culture was positive for staph aureaus 2/4 bottles so far. He does have a history of MRSA. CT of the spine was done that showed no evidence of abscess or osteomylitis. Head MRI showed small acute lacunar infarcts in the elft coronar radiata as well as opssible watershed stroke without hemorrhage. At this time, blood pressure is stable at 140/54 with pulse of 70. Currently he is on a heparin drip. Heart rhythm is slightly irregular. We were consulted for possible VJ to rule out endocarditis. Of note, he has a hx of coronary angiogram in 2019 that showed LM no significant stenosis, circumflex had a small first OM with moderate disease proximally, second OM which appears to be chronically occluded, grade 2 ndsy-by-wlofk collaterals were noted, third OM branch terminated in multiple branches, there was a 60 to 70% narrowing there, distal vessels with luminal irregularities, RCA had a widely patent proximal stented segment distal to the area there was about a 60% narrowing, mid and distal RCA was found to have mild diffuse disease, PLV branch was found to be trifurcating distally with about a 50 to 60% stenosis, there is a 60% narrowing just before the bifurcation of the PDA, LAD had moderate irregular narrowing in the proximal to mid segment around the takeoff of the first septal laundry folder in which there was about a 50% lesion there. Distal segment of the LAD had about a 30 to 40% diffuse narrowing. Ramus had about a 50% ostial narrowing. Coronary angiography showed right dominance. Previous echo in 2020 showed mildly reduced LV function. Review of Systems 2 Narrative: Consitutional: denies fever Card: Denies chest pain, palpitations, irregular heart rhythm Resp: Denies shortness of breath Musc: Denies extremity pain Skin: Denies rash, lesions, or wounds, denies changes to skin color Neuro: Denies nubmness in extremities Daniel: Denies easy bruiding/bleeding Medications/Allergies Home Medications ?Medication ?Instructions ?Recorded ?Confirmed ?Last Taken ?Type pantoprazole 40 mg tablet,delayed 40 mg PO DAILY 07/1312/12/24 12/12/24 08:00 History release vitamin B complex-vitamin C-folic 1 tab PO DAILY 03/0312/12/24 12/12/24 08:00 History acid 0.8 mg tablet Discontinue Dressing Changes #1 ea 07/16/22 12/12/24 U nknown Rx Diabetic shoes with Accomadative #1 ea 08/14/22 Unknown Rx Insoles vit B,C-folic ac 800 mcg-zinc 12.5 1 tab PO DAILY 06/1412/12/24 12/07/24 History mg-selen-D3 2,000 unit-vit E tablet (RenaPlex-D) amlodipine 5 mg tablet 5 mg PO DAILY #90 tabs 09/1412/12/24 12/12/24 Rx citalopram 10 mg tablet 10 mg PO DAILY 09/14/24 06/08/0712/12/24 08:00 History latanoprost 0.005 % eye drops 1 drp ophthalmic (eye) D AILY 09/14/24 12/12/24 12/11/24 20:00 History minoxidil 2.5 mg tablet 5 mg PO BID 09/14/24 5 12/12/24 09:00 History polyethylene glycol 3350 17 4 g PO DAILY #238 grams 12/12/24 12/12/24 08:00 Rx gram/dose oral powder (Miralax) dorzolamide 22.3 mg-timolol 6.8 1 drp ophthalmic (eye) BID 12/08/24 12/12/24 12/07/24 08:00 History mg/mL eye drops insulin degludec 100 unit/mL (3 20 unit SUBCUT DAILY 0 12/08/24 12/12/24 12/07/24 History mL) subcutaneous pen (Tresiba FlexTouch U-100 insulin) carvedilol 6.25 mg tablet 12.5 mg (2 x 6.25 mg) PO BID #180 12/09/24 12/12/24 12/12/24 09:00 Rx tabs dexamethasone 6 mg tablet 6 mg PO DAILY 5 days #5 tabs 12/09/24 12/12/24 12/12/24 08:00 Rx hydralazine 10 mg tablet 10 mg PO Q6H 30 days #120 ta bs 12/09/24 12/12/24 12/12/24 06:00 Rx lanthanum 1,000 mg chewable tablet 750 mg PO TID 12/0912/12/24 Unknown History lidocaine 5 % topical patch 1 patch topical Q24H PRN p ain 7 12/09/24 12/12/24 Unknown Rx days #7 ea clonidine HCl 0.1 mg tablet 0.1 mg PO BID PRN for sbp> 180 or 12/10/24 12/12/24 Unknown Rx dbp>100 30 days #60 tabs hydrocodone 10 mg-acetaminophen 1 - 2 tab PO Q8H PRN p ain 3 days 12/10/24 12/12/24 12/11/24 Rx 325 mg tablet #18 tabs insulin lispro 100 unit/mL See Rx Instructions .Route 12/10/24 12/12/24 12/11/24 16:00 Rx subcutaneous solution (Humalog .COMPLEX #10 mL U-100 Insulin) naloxone 4 mg/actuation nasal 4 mg intranasal Q2M PRN opioid 12/10/24 12/12/24 Unknown Rx spray (Narcan) overdose #2 ea naproxen 500 mg tablet 500 mg PO BID PRN pain 7 day s #14 12/10/24 12/12/24 Unknown Rx tabs bisacodyl 10 mg rectal suppository 10 mg HI DAILY PRN Constipation 12/12/24 12/12/24 Unknown History (Dulcolax (bisacodyl)) sodium phosphates 19 gram-7 118 ml HI DAILY PRN Consti pation 12/12/24 12/12/24 Unknown History gram/118 mL enema (Fleet Enema) Allergies Allergy/AdvReac Type Severity Reaction Status Date / Time No Known Allergies Allergy Verified 11/23/24 01:55 Current Medications Generic Name Dose Route Start Last Admin Trade Name Freq PRN Reason Stop Dose Admin Hydrocodone Bitart/Acetaminophen 1 tab 12/13/24 17:30 12/14/24 11:40 Hydrocodone-Acetaminophen 10-325 Mg Tablet PO 1 tab Q6H NATHANAEL Administration Aspirin 81 mg 12/12/24 15:35 12/14/24 10:20 Aspirin 81 Mg Ec Tablet PO Not Given DAILY NATHANAEL Atorvastatin Calcium 40 mg 12/12/24 21:00 12/13/24 21:53 Atorvastatin 40 Mg Tablet PO 40 mg BEDTIME NATHANAEL Administration Brimonidine Tartrate 1 drop 12/13/24 21:00 12/14/24 10:29 Brimonidine 0.2% Op Soln 5 Ml Btl EYE-BOTH 1 drop TID NATHANAEL Administration Citalopram Hydrobromide 10 mg 12/13/24 09:00 12/14/24 10:20 Citalopram 20 Mg Tablet PO Not Given DAILY NATHANAEL Dorzolamide/Timolol 1 drop 12/12/24 18:00 12/14/24 10:29 Dorzolamide/Timolol Op Soln 10 Ml Btl EYE-BOTH 1 drop BID NATHANAEL Administration Norepinephrine Bitartrate 4 mg in 250 mls @ 0 mls/hr 12/12/24 12:45 12/13/24 00:55 Levophed IV 0 mcg/min .Q0M NATHANAEL 0 mls/hr Protocol Titration Per Protocol Piperacillin Sod/Tazobactam 50 mls @ 12.5 mls/hr 12/13/24 02:00 12/14/24 02:59 Sod 3.375 gm/ Sodium Chloride IV 12.5 mls/hr Q12H NATHANAEL Administration Insulin Glargine 10 unit 12/13/24 06:00 12/14/24 06:18 Insulin Glargine 100 Units/1 Ml SUBCUT 10 unit QAM NATHANAEL Administration Insulin Human Lispro 0 unit 12/12/24 15:00 12/14/24 11:50 Insulin Lispro 100 Unit/1 Ml SUBCUT 4 unit TIDWM NATHANAEL Administration Protocol Latanoprost 1 drop 12/13/24 21:00 12/13/24 21:53 Latanoprost 0.005% Op Soln 2.5 Ml Btl EYE-BOTH 1 drop BEDTIME NATHANAEL Administration Lorazepam 0.5 mg 12/13/24 17:27 12/14/24 08:08 Lorazepam 1 Mg/0.5 Ml Injection IVP 0.5 mg Q8H PRN Administration ANXIETY Pantoprazole Sodium 40 mg 12/12/24 11:45 12/14/24 11:41 Pantoprazole 40 Mg Sdv IVP 40 mg Q24H NATHANAEL Administration PFSH Acute 2 PFSH: Medical History (Updated 12/13/24 @ 18:31 by José Luis Gonzalez MD) NSTEMI (non-ST elevated myocardial infarction) Hypertension Essential hypertension MSSA bacteremia Infection due to Port-A-Cath Anemia Hemodialysis access site with arteriovenous graft CAD (coronary artery disease) Hx of staphylococcal infection Chronic back pain Osteoarthritis Fibromyalgia GERD (gastroesophageal reflux disease) CKD (chronic kidney disease) Lumbar disc disease End stage renal disease on dialysis Diabetes mellitus Hypertensive emergency Congestive heart failure ESRD (end stage renal disease) Diabetes mellitus, type II Cardiomyopathy Surgical History Status post insertion of hemodialysis catheter Status post peritoneal dialysis History of coronary artery stent placement S/P tonsillectomy S/P carpal tunnel release H/O circumcision History of cataract surgery Family History Mother Aneurysm Grandmother Cancer Sister Cancer Social History Smoking and tobacco/nicotine status: unknown if used tobacco/nicotine Alcohol intake: never Substance/Drug Use: former 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 Clean since 1991 Lives independently: Yes Household members: none Housing: House Marital status: service: No Current occupational status: disabled Vitals/I&O/Wt Last Vital Signs Temp 98.5 F 12/14/24 04:00 Pulse 70 12/14/24 07:37 Resp 23 H 12/14/24 06:00 BP 140/54 12/14/24 06:00 Pulse Ox 93 12/14/24 07:37 O2 Del Method Nasal Cannula 12/14/24 07:37 O2 Flow Rate 2 12/14/24 07:37 12/13/24 12/14/24 12/14/24 22:59 06:59 14:59 Intake Total 813.35 / 1047.05 336.833 / 1383.883 140.617 / 140.617 Output Total 3000 / 3000 Balance -2186.65 / -1952.95 336.833 / -1616.117 140.617 / 140.617 Weight last 48 hrs Weight 260 lb 2.327 oz Weight 255 lb 11.779 oz Weight 262 lb Weight 267 lb 10.259 oz Weight 259 lb Physical Exam 2 Narrative: General: No apparent distress, healthy appearing, well nourished HENMT: normoceophalic Muskuloskeletal: Full ROM Respiratory: Normal respiratory effort, clear to auscultation bilaterally throughout all lung meier, no use of accessory muscles Cardio: No JVD, regular rate, regular rhythm, ectopic beats heard sporatically, S1 S2 normal, no murmurs, peripheral pulses 2+ radial palpated bilaterally GI: Normal to inspection, nondistended Extremities: Full ROM, normal, normal capillary refill, no cyanosis or edema Neuro: Alert and oriented x3, pleasantly confused at times Psych: Affect normal Skin: No rashes or lesions noted, no wounds Data 12/14/24 05:00 12/14/24 05:00 Micro: Microbiology 12/14/24 05:09 Blood Culture - Preliminary Blood SPECIMEN COLLECTED 12/14/24 05:00 Blood Culture - Preliminary Blood SPECIMEN COLLECTED 12/12/24 13:32 Blood Culture - Preliminary Blood Staphylococcus aureus 12/12/24 09:59 Blood Culture - Preliminary Blood Staphylococcus aureus A&P Assessment and plan (1) Congestive heart failure: (2) NSTEMI (non-ST elevated myocardial infarction): (3) Thrombocytopenia: (4) ESRD (end stage renal disease): (5) Staphylococcus aureus bacteremia: Plan At this time, patient denies any chest pain. Troponin elevation could be due to demand ischemia caused by sepsis as well as worsening coronary artery disease. May consider stress test in the future as patient recovers to rule out coronary ischemia. Patient has staph bacteremia of unknown source. CT of the back was negative for abscess or infection. May need VJ to rule out endocarditis. Will discuss case further with Dr. Clark. Will get an EKG now, as patient looked like he was either having PACs or possible afib. Will get EKG to rule out. Continue heparin rip and watch platelet count. Thank you, Dr. Gonzalez, for allowing us to care for this very pleasant 59 year old gentleman. PDMP PDMP Reviewed: Not Reviewed Consult Attestations 2 Medical Necessity Statement: Deferred to primary. Coding Level of Care Code Acute Code for Chg Fwd Diagnoses Other congestive heart failure I50.9 Heart failure type: other NSTEMI (non-ST elevated myocardial infarction) I21.4 Thrombocytopenia D69.6 ESRD (end stage renal disease) N18.6 Staphylococcus aureus bacteremia R78.81; B95.61
--- NOTE | 2024-12-14 13:26 | ECG_ITS ---
Kites epicurio Test Date: 2024-12-14 Pat Name: Kt Jett Department: Room: ICU09 Gender: Male Bid Writer: : 1965 Requested By: Jill Lock Order Number: [id number] Veronica MD: DIDIER CHEUNG Measurements Intervals [place] Rate: 85 P: 172 [place]: 189 QRS: 104 QRSD: 192 T: -39 QT: 452 QTc: 540 Interpretive Statements ATRIAL FIBRILLATION RIGHT AXIS DEVIATION [QRS AXIS > 100] RIGHT BUNDLE BRANCH BLOCK [120+ ms QRS DURATION, UPRIGHT V1, 40+ ms S IN I/aVL/V4/V5/V6] MARKED T-WAVE ABNORMALITY, CONSIDER ANTEROLATERAL ISCHEMIA [-0.5+ mV T-WAVE IN I/aVL/V3-V6] Compared to ECG 12/12/2024 13:32:10 Ectopic atrial rhythm now present Right-axis deviation now present Sinus rhythm no longer present First degree AV block no longer present Electronically Signed On 12-15-2024 23:07:23 CDT by DIDIER CHEUNG [email or web address]
--- NOTE | 2024-12-14 16:19 | P.PN_ITS ---
Subjective 2 Subjective: Overnight patient on 2 L, normotensive, had low-grade temperatures throughout the night, patient currently is alert to person, to place, not to time he recognized to be as his physician, pupils are equal round react to light, has a corneal reflex is able to track me, he tells me he is able to see me, able to see colors, it is difficult for me to really assess appropriate his vision as he at times remains globally encephalopathic keeps moving, complaining of lower back pain, I cannot discern a facial droop no slurring his words, he moves bilateral upper and lower extremities, he has equal strength bilaterally, no abdominal pain complaints, Vitals/I&O/Wt Last Vital Signs Temp 99.7 F H 12/14/24 14:31 Pulse 64 12/14/24 14:31 Resp 21 H 12/14/24 14:31 BP 155/66 12/14/24 14:31 Pulse Ox 92 12/14/24 13:30 O2 Del Method Nasal Cannula 12/14/24 13:00 O2 Flow Rate 2 12/14/24 13:00 12/14/24 12/14/24 12/14/24 06:59 14:59 22:59 Intake Total 386.833 / 1433.883 140.617 / 140.617 Balance 386.833 / -1566.117 140.617 / 140.617 Weight last 48 hrs Weight 118 kg Weight 116 kg Weight 118.841 kg Weight 121.4 kg Physical Exam 2 Const: COMMON NORMALS: no acute distress ORIENTATION/CONSCIOUSNESS: Yes awake, Yes oriented to person, Yes oriented to place and Yes confused; not oriented to time Eye: COMMON NORMALS: Equal, round and reactive pupils present and EOMs intact bilaterally PUPIL: Yes Equal, round and reactive pupils present Lymph: LYMPHATIC: no lymphadenopathy noted Resp: COMMON NORMALS: normal respiratory effort, No retractions, No use of accessory muscles and clear to auscultation bilaterally AUSCULTATION: clear to auscultation bilaterally Cardio: COMMON NORMALS: regular rate, regular rhythm, S1 normal heart sound present and S2 normal heart sound present RATE: regular rate RHYTHM: r egular rhythm HEART SOUNDS: S1 normal heart sound present and S2 normal heart sound present GI: COMMON NORMALS: Normal to inspection, nondistended, normoactive bowel sounds present and non-tender Extremity: COMMON NORMALS: no pedal edema Neuro: SENSORIUM/ORIENTATION: Yes oriented to person, Yes oriented to place and No oriented to time Psych: COMMON NORMALS: mental status grossly normal Skin: NARRATIVE SKIN EXAM: Right arm fistula site looks clean Feet, no breaks in the skin OTHER: Skin examination, bilateral feet, no breaks in the skin, bilateral legs, no breaks in the skin, no point tenderness Data 12/14/24 05:00 12/14/24 05:00 Micro: Microbiology 12/14/24 05:09 Blood Culture - Preliminary Blood SPECIMEN COLLECTED 12/14/24 05:00 Blood Culture - Preliminary Blood SPECIMEN COLLECTED 12/12/24 13:32 Blood Culture - Preliminary Blood Staphylococcus aureus 12/12/24 09:59 Blood Culture - Preliminary Blood Staphylococcus aureus A&P Assessment and plan (1) Encephalopathy acute: (2) NSTEMI (non-ST elevated myocardial infarction): (3) Uremia: (4) Hyponatremia: (5) Polypharmacy: (6) Increased anion gap metabolic acidosis: (7) Hyperglycemia: (8) Diabetes mellitus, type II: (9) ESRD (end stage renal disease): (10) Hypertension: (11) Congestive heart failure: (12) History of coronary artery stent placement: (13) Thrombocytopenia: (14) Intractable back pain: (15) Staphylococcus aureus bacteremia: (16) Ischemic cerebrovascular accident (CVA) due to global hypoperfusion with watershed infarction: Plan Staphylococcus aureus bacteremia -procal 5.92, crp 251.7 - Seen in 4 out of 4 blood cultures - Back in 2020, he also had Staph aureus bacteremia, source was subclavian port which was removed - Now with recurrent Staphylococcus aureus bacteremia - He does complain of back pain - Will do a CT scan of his spine - He does have a right arm dialysis fistula in place with 1 ultrasound the dialysis fistula, 60 - Cardiology consulted for possible transesophageal echocardiogram - For now continue vancomycin, until sensitivities are back - Does have a history of MRSA Acute CVA due to global hypoperfusion with watershed stroke Head CT no acute findings CTA head and neck CT/CT angio headneck* [id number] IMPRESSION: 1. No significant cervical ICA stenosis. 2. Moderate to advanced intracranial atheromatous disease with segmental narrowing appears advanced for patient this age. 3. Dense cavernous carotid calcification. 4. Moderate to severe segmental stenosis involving the SENIOR ACCOUNTING ASSOCIATE territories bilaterally RIGHT greater than LEFT. Basilar artery remains patent. Distal vessels appear patent MRI brain MR/MR head wo con* [id number] IMPRESSION: 1. Very small acute lacunar infarcts in the LEFT ortega radiata. These may be along the watershed distribution between arterial territories. No hemorrhage. 2. Otherwise mild cerebral and cerebellar volume loss and atrophy - Etiology likely secondary to hypotension episode in the emergency room plan: -neurochecks -nih stroke scale -aspirin -will hold on plavix given thromboytopenia, Plavix -permissive hypertension - Will monitor closely - Avoid hypotensive episodes Bilateral eye blindness - Etiology unclear -Symptomatology resolved last night -Assessment difficult today - Reach out to GI, has a history of glaucoma, started eyedrops for possible Acute encephalopathy, likely metabolic - Currently alert to person, not place, not to time -Patient can follow simple commands - Waxing and waning mentation -Etiology - Multifactorial -Uremic encephalopathy, BUN 107 -Hyponatremia serum sodium 127 -Possibly polypharmacy from his pain medications -Possible side effect of Decadron -Staph aureus bacteremia - Watershed stroke Plan - Neurochecks -NIH stroke scale - Nephrology consulted for dialysis 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, 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[facility], reportedly GIST per pathology Uremic encephalopathy - Nephrology consulted Acute hyponatremia - Nephrology consulted for dialysis Increased anion gap metabolic acidosis - Ketones negative - Plans on dialysis Type 2 diabetes mellitus, A1c 7.8 - Lantus 10 units daily - Low-dose sliding scale Hyperbilirubinemia, bilirubin 4.4, AST within normal, ALT within normal limits, alk phos within normal limits, will monitor NSTEMI - No chest pain complaints - T wave inversions in anterior leads - Cardiac echo CONCLUSIONS Technically limited quality echocardiogram because of poor ultrasonic windows. LV systolic function is mildly reduced with EF of 45-50%. RV hypokinesis noted Trace mitral regurgitation Mild tricuspid regurgitation Trace pulmonic regurgitation. Small pericardial effusion IVC appears to be dilated - Heparin drip completed 48 hours - Recent immobility with back pain venous ultrasound, CT angiogram of the chest negative for DVT Systolic CHF exacerbation, fluid overload, BNP over 70,000 - Continue inpatient dialysis Intractable back pain - Possibly withdrawing from his home hydrocodone, resume hydrocodone 10 every 6 hours scheduled Thrombocytopenia, etiology unclear, peripheral smear Full code Heparin for DVT prophylaxis Patient is [employer] does not accept blood products PDMP PDMP Reviewed: Last Reviewed 12/13/24 17:30 by José Luis Gonzalez MD Attestations 2 Medical Necessity Statement*: Patient requires hospitalization for acute encephalopathy,, watershed stroke, Staph aureus bacteremia, hyperbilirubinemia, NSTEMI, systolic CHF, thrombocytopenia Diagnoses Encephalopathy acute G93.40 NSTEMI (non-ST elevated myocardial infarction) I21.4 Uremia N19 Hyponatremia E87.1 Polypharmacy Z79.899 Increased anion gap metabolic acidosis E87.29 Hyperglycemia R73.9 Type 2 diabetes mellitus with chronic kidney disease on chronic dialysis, unspecified whether usp insulin use E11.22; N18.6; Z99.2 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 insulin use: unspecified usp insulin use status Diabetes mellitus complication status: with kidney complications Diabetes mellitus complication detail: with chronic kidney disease Chronic kidney disease stage: on chronic dialysis ESRD (end stage renal disease) N18.6 Essential hypertension I10 Hypertension type: essential hypertension Other congestive heart failure I50.9 Heart failure type: other History of coronary artery stent placement Z95.5 Thrombocytopenia D69.6 Intractable back pain M54.9 Staphylococcus aureus bacteremia R78.81; B95.61 Ischemic cerebrovascular accident (CVA) due to global hypoperfusion with watershed infarction I63.9
--- NOTE | 2024-12-14 17:06 | PC.SLP ---
Pt receiving dialysis. Tool Procurement Coordinator unable to see at this time.
[2024-12-14 17:22] LABS: Glucose Point of Care 124 mg/dL (70-110)
--- NOTE | 2024-12-14 18:18 | PC.NURSE ---
Shift SUmmary: Taken to CT for CT spine to search for source of infection. CT was negative. Received dialysis due to contrast received in CT. Mental status has been variable. Has been confused throughout the whole day. Occasionally able to answer name, , location, and year correctly. frequently lethargic, with intermittent periods of agitation. Scored 14 on NIHSS. High score was the result of refusal to participate in motor function tests. Patient claims he cannot move his arms and won't follow directions, but if he is handed a cup and instructed to drink he will easily bring it to his mouth. Patient claims he cannot move his legs, however patient will often used his legs to push himself up in bed with enough force to reposition without assistance. Physician made aware.
[2024-12-14] MEDS: heparin 5,000 unit/mL INJ 1 mL 5000 UNIT SUBCUT (19:18)
[2024-12-14] MEDS: lanolin oint 7 gm 1 APPLIC TOPICAL (19:19)
[2024-12-14] MEDS: acetaminophen 325 mg Tablet 650 MG PO (21:51)
[2024-12-14] MEDS: latanoprost 0.005% Op Soln 2.5 mL Btl 1 DROP EYE-BOTH (21:53)
[2024-12-14] MEDS: atorvastatin 40 mg Tablet PO (21:53)
[2024-12-15] VITALS (52 sets, daily range): BP systolic 105–187; BP diastolic 38–148; PULSE 60–79; RESP 12–27; TEMP 36.4–37; O2SAT 91–100
--- NOTE | 2024-12-15 00:28 | PC.NURSE ---
Morphine Patient complaining of severe back pain, stating It hurts, sit me up, sit me up. You have to do something. Patient repositioned into recliner. Patient still complaining of severe back pain. Dr. Kunz contacted; last hydrocodone dose, mentation, and dialysis status discussed. Order received for 2 mg morphine IVP once.
--- NOTE | 2024-12-15 00:30 | PC.NURSE ---
Right Arm CT Upper extremity CTA resulted. Results discussed with Dr. Kunz; no new orders received.
[2024-12-15] MEDS: morphine 4 mg/mL SDV 1 mL 2 MG IVP (00:47)
[2024-12-15] MEDS: piperacillin-tazobactam 3.375 GM in sodium chloride 0.9% (plus) 50 ML IV (01:31)
[2024-12-15 04:22] LABS: Basophils # 0.1 10^3/uL (0.0-0.1); Basophils % 0.5 %; Hematocrit 36.3 % (37-53); Lymphocytes # 0.5 10^3/uL (0.8-4.8); Lymphocytes % 4.1 %; Mean Corpuscular HGB Conc 34.2 g/dL (30-55); Mean Corpuscular Hemoglobin 31.2 pg (27-33); Mean Corpuscular Volume 91.4 fl (82-101); Mean Platelet Volume 11.8 fL (7.4-10.4); Monocytes % 7.5 %; Neutrophils # 11.34 10^3/uL (1.8-7.7); Neutrophils % 85.6 %; Nucleated Red Blood Cells % 0 %; Platelet Count 96 10^3/cmm (157-399); Red Blood Count 3.97 10^6/uL (3.85-5.65); Red Cell Distribution Width 14.6 % (12.1-15.1); White Blood Count 13.25 10^3/uL (3.29-11.43)
--- NOTE | 2024-12-15 04:36 | PC.NURSE ---
Pt says to stop test is not compliant with prompts. NIH ss score potentially inaccurate due to lack of participation.
[2024-12-15 04:37] LABS: INR 1.15 (0.8-1.2)
[2024-12-15 04:42] LABS: Alanine Aminotransferase 24 U/L (0-41); Albumin Level 2.2 g/dL (3.5-5.2); Alkaline Phosphatase 94 U/L (40-130); Anion Gap 21.5 (5-19); Aspartate Amino Transferase 38 U/L (0-40); Blood Urea Nitrogen 67 mg/dL (6-20); C Reactive Protein 185.2 mg/L (0.0-4.9); Calcium 8.4 mg/dL (8.5-10.5); Carbon Dioxide 23 mmol/L (22-29); Chloride 92 mmol/L (98-107); Creatinine Clr Calc Pharmacy 20.0596; Globulin 3.7 g/dL (1.3-4.6); Glomerular Filtration Rate 11.4 mL/min (90-130); Glucose 203 mg/dL (65-115); Magnesium 2.3 mg/dL (1.7-2.3); Osmolality Calculated 299 mOsm/kg (285-295); Phosphorus 5.5 mg/dL (2.5-4.5); Potassium 4.5 mmol/L (3.5-5.1); Sodium 132 mmol/L (136-145); Total Protein 5.9 g/dL (6.6-8.7)
[2024-12-15 04:45] LABS: Lactate (Lactic Acid level) 1.2 mmol/L (0.5-2.2)
[2024-12-15 04:53] LABS: Procalcitonin 4.41 ng/mL (0-0.5)
[2024-12-15 05:05] LABS: Creatine Phosphokinase 64 U/L (39-308)
[2024-12-15] MEDS: HYDROcodone-acetaminophen 10-325 mg Tablet 1 TAB PO ×3 (05:23→23:23)
[2024-12-15] MEDS: heparin 5,000 unit/mL INJ 1 mL 5000 UNIT SUBCUT ×2 (05:50→17:11)
[2024-12-15] MEDS: insulin glargine 100 units/1 mL 10 UNIT SUBCUT (05:51)
[2024-12-15 05:52] LABS: Glucose Point of Care 252 mg/dL (70-110)
--- NOTE | 2024-12-15 06:37 | P.PN_ITS ---
Subjective 2 Subjective: remains confused CTA right UE - conderning ofr myositis and ? abccess Medications: Reviewed: Yes Vitals/I&O/Wt Last Vital Signs Temp 97.8 F 12/15/24 04:00 Pulse 63 12/15/24 06:00 Resp 20 H 12/15/24 06:00 BP 121/62 12/15/24 06:00 Pulse Ox 96 12/15/24 06:00 O2 Del Method Nasal Cannula 12/14/24 18:00 O2 Flow Rate 2 12/14/24 18:00 12/14/24 12/14/24 12/15/24 14:59 22:59 06:59 Intake Total 247.867 / 247.867 650 / 897.867 Output Total 1800 / 1800 Balance 247.867 / 247.867 -1150 / -902.133 Weight last 48 hrs Weight 115.4 kg Weight 118 kg Weight 116 kg Physical Exam 2 Narrative: GEN: nad, lethargic HEAD: normocephalic, atraumatic EYES: eyes are closed HEENT: mmm NECK: no jvd CV: rrr LUNGS: diminished BS ABD: soft, nt, nd EXT: NO LE edema NEURO: lethargic SKIN: no rash Data 12/15/24 04:07 12/15/24 04:07 Micro: Microbiology 12/14/24 05:09 Blood Culture - Preliminary Blood NEGATIVE TO DATE 12/14/24 05:00 Blood Culture - Preliminary Blood NEGATIVE TO DATE A&P Assessment and plan (1) ESRD (end stage renal disease): Plan 1. End-stage renal disease- he is on maintenance HD on a MWF schedule. he had hd on 12/12 and 12/13 due to encephalopathy. he received IV contrast and will have hd today 2. History of hypertension- resume home meds 3. Anemia in ckd- Hemoglobin at goal 4. Intractable back pain- due to lumbar radiculopathy , 5. History of coronary artery disease 6. Encephalopathy- likely metabolic 7. RUE CTA concerning for myositis and ? abscess, consult general surgery Pt evaluated using audiovisual cart. Time spent 20 min PDMP PDMP Reviewed: Not Reviewed Attestations 2 Medical Necessity Statement*: per katalina Coding Level of Care Code Acute Code for Chg Fwd Diagnoses ESRD (end stage renal disease) N18.6
[2024-12-15 06:44] LABS: NT Pro B Type Natriuretic Pept > 70000 pg/mL (0-125)
--- NOTE | 2024-12-15 07:39 | US_ITS ---
WS: [id number] ULTRASOUND ABDOMEN CLINICAL INFORMATION: ruq gallbladder,liver, hyperbilirubinemia FINDINGS: Liver Size: Enlarged Craniocaudal length: 17.9 cm. Echogenicity: Coarse Surface nodularity: Present Mass (size and location): None. Bile ducts Intrahepatic ducts: Normal. Common bile duct diameter: 0.5 cm. Gallbladder Small calculus or sludge ball Gallbladder wall thickening: None. Gallbladder wall measures 2 mm today. Pericholecystic fluid: None. Sonographic Ramirez sign: Absent. Pancreas Not well visualized Spleen Splenomegaly: None. Craniocaudal length: 12.0 cm. Right kidney: Simple cyst measuring 3.2 cm Hydronephrosis: None. Size: 7.8 cm x 4.5 cm x 4.4 cm LEFT kidney not visualized Abdominal aorta and IVC Visualized portions are normal. Ascites: None. US/US abdomen complete* [id number] IMPRESSION: Technically difficult study due to bowel gas and body habitus. 1. Hepatomegaly. Nodular capsular contour suspicious for cirrhosis. 2. No ascites. 3. Tiny calculus or sludge ball in the gallbladder. No gallbladder wall thicke uvaldo or pericholecystic fluid seen today. 4. Normal common bile duct measuring 5 mm. 5. No hydronephrosis in the RIGHT kidney. 6. Small simple cyst RIGHT kidney
--- NOTE | 2024-12-15 08:00 | USR_ITS ---
PROCEDURE INFORMATION: Exam: US Duplex Hemodialysis Access Exam date and time: 12/15/2024 8:39 AM Age: 59 years old Clinical indication: Right arm dialysis fistula, evaluate flow TECHNIQUE: Imaging protocol: US Duplex hemodialysis access with amanda scale, color Doppler, and spectral waveform analysis. Vascular access, inflow and outflow were evaluated. Duplex exam was performed to evaluate for vascular conditions. COMPARISON: No relevant prior studies available. FINDINGS: Limited study was performed to evaluate right brachial arteriovenous fistula patency. Turbulent flow is seen within the fistula with no evidence for occlusive process. No measurements were obtained. US/CV unlisted vascular [id number] IMPRESSION: Patent arteriovenous fistula.
--- NOTE | 2024-12-15 08:07 | PM.CONSULT ---
Providers/Reason For Consult Consulting Physician/Specialty*: Dr. Thacker general surgery Reason for Consult*: Temporary dialysis catheter placement Attending Physician: José Luis Gonzalez MD Primary Care Provider: Sandy Kelly MD History of Present Illness History of Present Illness Kt Jett is a 59 year old male with known chronic kidney disease whom surgery was consulted for placement of temporary dialysis catheter. Patient has a fistula but it is not working. Currently uremic. Palpable pulses bilateral groins. Medications/Allergies Home Medications ?Medication ?Instructions ?Recorded ?Confirmed ?Last Taken ?Type pantoprazole 40 mg tablet,delayed 40 mg PO DAILY 07/13/19 12/12/24 12/12/24 08:00 History release vitamin B complex-vitamin C-folic 1 tab PO DAILY 03/03/22 12/12/24 12/12/24 08:00 History acid 0.8 mg tablet Discontinue Dressing Changes #1 ea 07/16/22 12/12/24 Unknown Rx Diabetic shoes with Accomadative #1 ea 08/14/22 12/12/24 Unknown Rx Insoles vit B,C-folic ac 800 mcg-zinc 12.5 1 tab PO DAILY 07/11/23 12/12/24 12/07/24 History mg-selen-D3 2,000 unit-vit E tablet (RenaPlex-D) amlodipine 5 mg tablet 5 mg PO DAILY #90 tabs 09/14/24 12/12/24 12/12/24 Rx citalopram 10 mg tablet 10 mg PO DAILY 09/14/24 12/12/24 12/12/24 08:00 History latanoprost 0.005 % eye drops 1 drp ophthalmic (eye) DAILY 09/14/24 12/12/24 12/11/24 20:00 History minoxidil 2.5 mg tablet 5 mg PO BID 09/14/24 12/12/24 12/12/24 09:00 History polyethylene glycol 3350 17 4 g PO DAILY #238 grams 11/23/24 12/12/24 12/12/24 08:00 Rx gram/dose oral powder (Miralax) dorzolamide 22.3 mg-timolol 6.8 1 drp ophthalmic (eye) BID 12/08/24 12/12/24 12/07/24 08:00 History mg/mL eye drops insulin degludec 100 unit/mL (3 20 unit SUBCUT DAILY 12/08/24 12/12/24 12/07/24 History mL) subcutaneous pen (Tresiba FlexTouch U-100 insulin) carvedilol 6.25 mg tablet 12.5 mg (2 x 6.25 mg) PO BID #180 12/09/24 12/12/24 12/12/24 09:00 Rx tabs dexamethasone 6 mg tablet 6 mg PO DAILY 5 days #5 tabs 12/09/24 12/12/24 12/12/24 08:00 Rx hydralazine 10 mg tablet 10 mg PO Q6H 30 days #120 tabs 12/09/24 12/12/24 12/12/24 06:00 Rx lanthanum 1,000 mg chewable tablet 750 mg PO TID 12/09/24 12/12/24 Unknown History lidocaine 5 % topical patch 1 patch topical Q24H PRN pain 7 12/09/24 12/12/24 Unknown Rx days #7 ea clonidine HCl 0.1 mg tablet 0.1 mg PO BID PRN for sbp>180 or 12/10/24 12/12/24 Unknown Rx dbp>100 30 days #60 tabs hydrocodone 10 mg-acetaminophen 1 - 2 tab PO Q8H PRN pain 3 days 12/10/24 12/12/24 12/11/24 Rx 325 mg tablet #18 tabs insulin lispro 100 unit/mL See Rx Instructions .Route 12/10/24 12/12/24 12/11/24 16:00 Rx subcutaneous solution (Humalog .COMPLEX #10 mL U-100 Insulin) naloxone 4 mg/actuation nasal 4 mg intranasal Q2M PRN opioid 12/10/24 12/12/24 Unknown Rx spray (Narcan) overdose #2 ea naproxen 500 mg tablet 500 mg PO BID PRN pain 7 days #14 12/10/24 12/12/24 Unknown Rx tabs bisacodyl 10 mg rectal suppository 10 mg UT DAILY PRN Constipation 12/12/24 12/12/24 Unknown History (Dulcolax (bisacodyl)) sodium phosphates 19 gram-7 118 ml UT DAILY PRN Constipation 12/12/24 12/12/24 Unknown History gram/118 mL enema (Fleet Enema) Allergies Allergy/AdvReac Type Severity Reaction Status Date / Time No Known Allergies Allergy Verified 11/23/24 01:55 Current Medications Generic Name Dose Route Start Last Admin Trade Name Freq PRN Reason Stop Dose Admin Acetaminophen 650 mg 12/12/24 11:33 12/14/24 21:51 Acetaminophen 325 Mg Tablet PO 650 mg Q6H PRN Administration Mild/Mod Pain Or Temp >/= 101 Hydrocodone Bitart/Acetaminophen 1 tab 12/13/24 17:30 12/15/24 05:23 Hydrocodone-Acetaminophen 10-325 Mg Tablet PO 1 tab Q6H NATHANAEL Administration Aspirin 81 mg 12/12/24 15:35 12/14/24 10:20 Aspirin 81 Mg Ec Tablet PO Not Given DAILY NATHANAEL Atorvastatin Calcium 40 mg 12/12/24 21:00 12/14/24 21:53 Atorvastatin 40 Mg Tablet PO 40 mg BEDTIME NATHANAEL Administration Brimonidine Tartrate 1 drop 12/13/24 21:00 12/14/24 21:59 Brimonidine 0.2% Op Soln 5 Ml Btl EYE-BOTH 1 drop TID NATHANAEL Administration Citalopram Hydrobromide 10 mg 12/13/24 09:00 12/14/24 10:20 Citalopram 20 Mg Tablet PO Not Given DAILY NATHANAEL Dorzolamide/Timolol 1 drop 12/12/24 18:00 12/14/24 17:21 Dorzolamide/Timolol Op Soln 10 Ml Btl EYE-BOTH 1 drop BID NATHANAEL Administration Heparin Sodium (Porcine) 5,000 unit 12/14/24 18:15 12/15/24 05:50 Heparin 5,000 Unit/Ml Inj 1 Ml SUBCUT 5,000 unit Q12H NATHANAEL Administration Norepinephrine Bitartrate 4 mg in 250 mls @ 0 mls/hr 12/12/24 12:45 12/13/24 00:55 Levophed IV 0 mcg/min .Q0M NATHANAEL 0 mls/hr Protocol Titration Per Protocol Piperacillin Sod/Tazobactam 50 mls @ 12.5 mls/hr 12/13/24 02:00 12/15/24 07:41 Sod 3.375 gm/ Sodium Chloride IV Infused Q12H NATHANAEL Infusion Insulin Glargine 10 unit 12/13/24 06:00 12/15/24 05:51 Insulin Glargine 100 Units/1 Ml SUBCUT 10 unit QAM NATHANAEL Administration Insulin Human Lispro 0 unit 12/12/24 15:00 12/14/24 17:21 Insulin Lispro 100 Unit/1 Ml SUBCUT Not Given TIDWM NATHANAEL Protocol Lanolin 1 applic 12/14/24 17:28 12/14/24 19:19 Lanolin Oint 7 Gm TOPICAL 1 applic PRN PRN Administration DRYNESS Latanoprost 1 drop 12/13/24 21:00 12/14/24 21:53 Latanoprost 0.005% Op Soln 2.5 Ml Btl EYE-BOTH 1 drop BEDTIME NATHANAEL Administration Lorazepam 0.5 mg 12/13/24 17:27 12/14/24 08:08 Lorazepam 1 Mg/0.5 Ml Injection IVP 0.5 mg Q8H PRN Administration ANXIETY Pantoprazole Sodium 40 mg 12/12/24 11:45 12/14/24 11:41 Pantoprazole 40 Mg Sdv IVP 40 mg Q24H NATHANAEL Administration PFSH Acute PFSH: Medical History (Updated 12/15/24 @ 12:49 by Chase Thacker MD) NSTEMI (non-ST elevated myocardial infarction) Hypertension Essential hypertension MSSA bacteremia Infection due to Port-A-Cath Anemia Hemodialysis access site with arteriovenous graft CAD (coronary artery disease) Hx of staphylococcal infection Chronic back pain Osteoarthritis Fibromyalgia GERD (gastroesophageal reflux disease) CKD (chronic kidney disease) Lumbar disc disease End stage renal disease on dialysis Diabetes mellitus Hypertensive emergency Congestive heart failure ESRD (end stage renal disease) Diabetes mellitus, type II Cardiomyopathy Surgical History Status post insertion of hemodialysis catheter Status post peritoneal dialysis History of coronary artery stent placement S/P tonsillectomy S/P carpal tunnel release H/O circumcision History of cataract surgery Family History Mother Aneurysm Grandmother Cancer Sister Cancer Social History Smoking and tobacco/nicotine status: unknown if used tobacco/nicotine Alcohol intake: never Substance/Drug Use: former 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 Clean since 1991 Lives independently: Yes Household members: none Housing: House Marital status: service: No Current occupational status: disabled Vitals/I&O/Wt Last Vital Signs Temp 97.8 F 12/15/24 04:00 Pulse 63 12/15/24 06:00 Resp 20 H 12/15/24 06:00 BP 121/62 12/15/24 06:00 Pulse Ox 96 12/15/24 06:00 O2 Del Method Nasal Cannula 12/14/24 18:00 O2 Flow Rate 2 12/14/24 18:00 12/14/24 12/15/24 12/15/24 22:59 06:59 14:59 Intake Total 650 / 897.867 150 / 150 Output Total 1800 / 1800 Balance -1150 / -902.133 150 / 150 Weight last 48 hrs Weight 254 lb 6.615 oz Weight 260 lb 2.327 oz Weight 255 lb 11.779 oz Physical Exam Narrative: Chest: Unlabored breathing room air. No lymphadenopathy. Heart: Regular rate and rhythm. Abdomen: Soft, nontender, nondistended. No masses or lymphadenopathy. Palpable pulses bilateral groins. Data 12/15/24 04:07 12/15/24 04:07 Micro: Microbiology 12/14/24 05:09 Blood Culture - Preliminary Blood NEGATIVE TO DATE 12/14/24 05:00 Blood Culture - Preliminary Blood NEGATIVE TO DATE A&P Assessment and plan (1) Uremia: Plan 59-year-old male with chronic kidney disease whom surgery was consulted for placement of temporary dialysis catheter. Discussed risk and benefits with POA who agrees to proceed. PDMP PDMP Reviewed: Not Reviewed Coding Level of Care Code 17654 Diagnoses Uremia N19
--- NOTE | 2024-12-15 08:08 | PM.ACPR ---
Procedure/Consent Consent: Consent for Procedure: Consent obtained from other (indicate) (POA) and Risks & Benefits reviewed Additional Consent Information: Patient is uremic. Procedure Narrative: Discussed risks and benefits and consent was obtained to performed a temporary dialysis catheter. The right groin was prepped and draped in the usual sterile fashion. Ultrasound was used to identify the right common femoral vein. Local infiltration done using 5 cc of 1% lidocaine. A finder needle was used to access the right common femoral vein under ultrasound guidance. Able to draw venous blood. I then threaded a wire through the finder needle. I removed the needle and confirmed adequate placement of the wire in the right common femoral vein using ultrasound. Using an 11 blade a stab incision was done next to the wire to accommodate for the dilators. I serially dilated the tract using 2 dilators. I was then able to place the 20 cm dual-lumen temporary dialysis catheter using the Seldinger technique. I was able to draw blood and flushed easily through both lumens. Catheter was secured in place with sutures. A sterile dressing was applied. Catheter is ready for immediate use.
[2024-12-15 08:32] LABS: Ammonia 22 umol/L (16-60); Total Bilirubin 6.8 mg/dL (0.15-1.2)
[2024-12-15 08:45] LABS: Gamma Glutamyl Transferase 97 U/L (8-61); Lipase 14 U/L (13-60)
[2024-12-15 08:50] LABS: Glucose Point of Care 231 mg/dL (70-110)
[2024-12-15] MEDS: citalopram 20 mg Tablet 10 MG PO (08:55)
[2024-12-15] MEDS: aspirin 81 mg EC Tablet PO (08:55)
[2024-12-15] MEDS: insulin lispro 100 unit/1 mL SUBCUT ×3 (08:56→17:09)
[2024-12-15] MEDS: brimonidine 0.2% Op Soln 5 mL Btl 1 DROP EYE-BOTH ×3 (08:57→21:47)
[2024-12-15] MEDS: dorzolamide/timolol Op Soln 10 mL Btl 1 DROP EYE-BOTH ×2 (08:57→17:11)
--- NOTE | 2024-12-15 09:05 | PC.HD ---
This cone treater unable to access patient's RAVG, attempts x3. Bruit and thrill were noted. Dr. Cote ordering temporary HD catheter and repeat U/S of RUE. Dialysis to follow insertion of temporary HD catheter. Fabrication Engineer aware.
--- NOTE | 2024-12-15 09:20 | PC.SLP ---
CURB SETTER treatment attempted however patient could not tolerate sitting up in bed for feeding trials.
[2024-12-15] MEDS: LORazepam 1 MG/0.5 ML injection IVP (11:06)
[2024-12-15] MEDS: pantoprazole 40 mg SDV IVP (12:04)
--- NOTE | 2024-12-15 12:14 | USCV_ITS ---
Kt Jett Age: 59 Gender: M : 1965 Exam Date: 12/15/2024 12:27 Ordering Phys: José Luis Gonzalez MD Technologist: JESSICA Exam Location: [facility] Indication: ENDOCARDITIS BP: 181 / 69 HR: 68 Rhythm: Sinus Technical Quality: Good MEASUREMENTS (Male / Female) Normal Values Medications Patient given IV sedation by anesthesia service, for details please refer to the anesthesia report. Complications Patient tolerated procedure well. Proc. Components FINDINGS Left Ventricle Normal left ventricular size, systolic function and wall thickness, with no regional wall motion abnormalities. Left ventricular ejection fraction is estimated at 60 %. No intracardiac shunt by bubble study. Right Ventricle The right ventricle is normal in size and function. Right Atrium The right atrium is normal in size. Left Atrium The left atrium is normal in size. LA Appendage Normal left atrial appendage. No thrombus visualized in the left atrial appendage. Normal flow velocities in the left atrial appendage. IA Septum The interatrial septum is normal. Mitral Valve Structurally normal mitral valve without significant stenosis or prolapse. There is no mitral regurgitation. Aortic Valve Moderate aortic valve calcification. No aortic valve stenosis. Trace aortic valve regurgitation. Tricuspid Valve Structurally normal tricuspid valve without significant stenosis or regurgitation. Pulmonary artery systolic pressure is normal. Pulmonic Valve Structurally normal pulmonic valve without significant stenosis. There is no pulmonic regurgitation. Pericardium Normal pericardium without effusion. Aorta Normal ascending aorta dimension. CONCLUSIONS Normal left ventricular size, systolic function and wall thickness, with no regional wall motion abnormalities. Left ventricular ejection fraction is estimated at 60 %. No intracardiac shunt by bubble study. Normal left atrial appendage. No thrombus visualized in the left atrial appendage. Normal flow velocities in the left atrial appendage. No significant valve abnormalities. No intracardiac source of infection or obvious vegetation noted There is no pericardial effusion. Herbie Clark MD (Electronically Signed) Final Date: 15 December 2024 20:06 S
--- NOTE | 2024-12-15 12:14 | ANES.PREANE2 ---
Pre-Anesthetic Assessment Height/Weight: Height 6 ft Weight 254 lb Temp Pulse Resp BP Pulse Ox O2 Del Method O2 Flow Rate 97.8 F 62 22 H 139/62 91 Nasal Cannula 2 12/15/24 08:00 12/15/24 11:30 12/15/24 11:30 12/15/24 11:30 12/15/24 11:00 12/15/24 08:12 12/15/24 08:12 Preop Diagnosis: Heart failure Was Beta Flores taken within 24 hours: Yes Was Clonidine taken within 24 hours: N/A Social unkown Exam alert and regular rate & rhythm Airway Submandibular: within normal limits Mallampati: Class III Comments: Comments: missing teeth Anesthetic Plan ASA status: 4 Anesthesia: MAC Other: Patient initially admitted 12/12/2024 with severe heart failure, BNP 70,000 NPO since yesterday evening IDDM CKD on chronic dialysis Prior CVA Plan for MAC anesthesia Medications/Allergies Home Medications ?Medication ?Instructions ?Recorded ?Confirmed ?Last Taken ?Type pantoprazole 40 mg tablet,delayed 40 mg PO DAILY 07/13/19 12/12/24 12/12/24 08:00 History release vitamin B complex-vitamin C-folic 1 tab PO DAILY 03/03/22 12/12/24 12/12/24 08:00 History acid 0.8 mg tablet Discontinue Dressing Changes #1 ea 07/16/22 12/12/24 Unknown Rx Diabetic shoes with Accomadative #1 ea 08/14/22 12/12/24 Unknown Rx Insoles vit B,C-folic ac 800 mcg-zinc 12.5 1 tab PO DAILY 07/11/23 12/12/24 12/07/24 History mg-selen-D3 2,000 unit-vit E tablet (RenaPlex-D) amlodipine 5 mg tablet 5 mg PO DAILY #90 tabs 09/14/24 12/12/24 12/12/24 Rx citalopram 10 mg tablet 10 mg PO DAILY 09/14/24 12/12/24 12/12/24 08:00 History latanoprost 0.005 % eye drops 1 drp ophthalmic (eye) DAILY 09/14/24 12/12/24 12/11/24 20:00 History minoxidil 2.5 mg tablet 5 mg PO BID 09/14/24 12/12/24 12/12/24 09:00 History polyethylene glycol 3350 17 4 g PO DAILY #238 grams 11/23/24 12/12/24 12/12/24 08:00 Rx gram/dose oral powder (Miralax) dorzolamide 22.3 mg-timolol 6.8 1 drp ophthalmic (eye) BID 12/08/24 12/12/24 12/07/24 08:00 History mg/mL eye drops insulin degludec 100 unit/mL (3 20 unit SUBCUT DAILY 12/08/24 12/12/24 12/07/24 History mL) subcutaneous pen (Tresiba FlexTouch U-100 insulin) carvedilol 6.25 mg tablet 12.5 mg (2 x 6.25 mg) PO BID #180 12/09/24 12/12/24 12/12/24 09:00 Rx tabs dexamethasone 6 mg tablet 6 mg PO DAILY 5 days #5 tabs 12/09/24 12/12/24 12/12/24 08:00 Rx hydralazine 10 mg tablet 10 mg PO Q6H 30 days #120 tabs 12/09/24 12/12/24 12/12/24 06:00 Rx lanthanum 1,000 mg chewable tablet 750 mg PO TID 12/09/24 12/12/24 Unknown History lidocaine 5 % topical patch 1 patch topical Q24H PRN pain 7 12/09/24 12/12/24 Unknown Rx days #7 ea clonidine HCl 0.1 mg tablet 0.1 mg PO BID PRN for sbp>180 or 12/10/24 12/12/24 Unknown Rx dbp>100 30 days #60 tabs hydrocodone 10 mg-acetaminophen 1 - 2 tab PO Q8H PRN pain 3 days 12/10/24 12/12/24 12/11/24 Rx 325 mg tablet #18 tabs insulin lispro 100 unit/mL See Rx Instructions .Route 12/10/24 12/12/24 12/11/24 16:00 Rx subcutaneous solution (Humalog .COMPLEX #10 mL U-100 Insulin) naloxone 4 mg/actuation nasal 4 mg intranasal Q2M PRN opioid 12/10/24 12/12/24 Unknown Rx spray (Narcan) overdose #2 ea naproxen 500 mg tablet 500 mg PO BID PRN pain 7 days #14 12/10/24 12/12/24 Unknown Rx tabs bisacodyl 10 mg rectal suppository 10 mg ND DAILY PRN Constipation 12/12/24 12/12/24 Unknown History (Dulcolax (bisacodyl)) sodium phosphates 19 gram-7 118 ml ND DAILY PRN Constipation 12/12/24 12/12/24 Unknown History gram/118 mL enema (Fleet Enema) Allergies Allergy/AdvReac Type Severity Reaction Status Date / Time No Known Allergies Allergy Verified 11/23/24 01:55 Current Medications Generic Name Dose Route Start Last Admin Trade Name Freq PRN Reason Stop Dose Admin Acetaminophen 650 mg 12/12/24 11:33 12/14/24 21:51 Acetaminophen 325 Mg Tablet PO 650 mg Q6H PRN Administration Mild/Mod Pain Or Temp >/= 101 Hydrocodone Bitart/Acetaminophen 1 tab 12/13/24 17:30 12/15/24 12:04 Hydrocodone-Acetaminophen 10-325 Mg Tablet PO 1 tab Q6H NATHANAEL Administration Aspirin 81 mg 12/12/24 15:35 12/15/24 08:55 Aspirin 81 Mg Ec Tablet PO 81 mg DAILY NATHANAEL Administration Atorvastatin Calcium 40 mg 12/12/24 21:00 12/14/24 21:53 Atorvastatin 40 Mg Tablet PO 40 mg BEDTIME NATHANAEL Administration Brimonidine Tartrate 1 drop 12/13/24 21:00 12/15/24 08:57 Brimonidine 0.2% Op Soln 5 Ml Btl EYE-BOTH 1 drop TID NATHANAEL Administration Citalopram Hydrobromide 10 mg 12/13/24 09:00 12/15/24 08:55 Citalopram 20 Mg Tablet PO 10 mg DAILY NATHANAEL Administration Dorzolamide/Timolol 1 drop 12/12/24 18:00 12/15/24 08:57 Dorzolamide/Timolol Op Soln 10 Ml Btl EYE-BOTH 1 drop BID NATHANAEL Administration Heparin Sodium (Porcine) 5,000 unit 12/14/24 18:15 12/15/24 05:50 Heparin 5,000 Unit/Ml Inj 1 Ml SUBCUT 5,000 unit Q12H NATHANAEL Administration Norepinephrine Bitartrate 4 mg in 250 mls @ 0 mls/hr 12/12/24 12:45 12/13/24 00:55 Levophed IV 0 mcg/min .Q0M NATHANAEL 0 mls/hr Protocol Titration Per Protocol Piperacillin Sod/Tazobactam 50 mls @ 12.5 mls/hr 12/13/24 02:00 12/15/24 07:41 Sod 3.375 gm/ Sodium Chloride IV Infused Q12H NATHANAEL Infusion Insulin Glargine 10 unit 12/13/24 06:00 12/15/24 05:51 Insulin Glargine 100 Units/1 Ml SUBCUT 10 unit QAM NATHANAEL Administration Insulin Human Lispro 0 unit 12/12/24 15:00 12/15/24 08:56 Insulin Lispro 100 Unit/1 Ml SUBCUT 6 unit TIDWM NATHANAEL Administration Protocol Lanolin 1 applic 12/14/24 17:28 12/14/24 19:19 Lanolin Oint 7 Gm TOPICAL 1 applic PRN PRN Administration DRYNESS Latanoprost 1 drop 12/13/24 21:00 12/14/24 21:53 Latanoprost 0.005% Op Soln 2.5 Ml Btl EYE-BOTH 1 drop BEDTIME NATHANAEL Administration Lorazepam 1 mg 12/15/24 09:19 12/15/24 11:06 Lorazepam 1 Mg/0.5 Ml Injection IVP 1 mg Q8H PRN Administration ANXIETY Pantoprazole Sodium 40 mg 12/12/24 11:45 12/15/24 12:04 Pantoprazole 40 Mg Sdv IVP 40 mg Q24H NATHANAEL Administration PFSH Anesthesia Medical History (Updated 12/15/24 @ 12:49 by Chase Thacker MD) NSTEMI (non-ST elevated myocardial infarction) Hypertension Essential hypertension MSSA bacteremia Infection due to Port-A-Cath Anemia Hemodialysis access site with arteriovenous graft CAD (coronary artery disease) Hx of staphylococcal infection Chronic back pain Osteoarthritis Fibromyalgia GERD (gastroesophageal reflux disease) CKD (chronic kidney disease) Lumbar disc disease End stage renal disease on dialysis Diabetes mellitus Hypertensive emergency Congestive heart failure ESRD (end stage renal disease) Diabetes mellitus, type II Cardiomyopathy Surgical History Status post insertion of hemodialysis catheter Status post peritoneal dialysis History of coronary artery stent placement S/P tonsillectomy S/P carpal tunnel release H/O circumcision History of cataract surgery Family History Mother Aneurysm Grandmother Cancer Sister Cancer Social History Smoking and tobacco/nicotine status: unknown if used tobacco/nicotine Alcohol intake: never Substance/Drug Use: former 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 Clean since 1991 Lives independently: Yes Household members: none Housing: House Marital status: service: No Current occupational status: disabled Data Anesthesia 12/15/24 04:07 12/15/24 04:07 Short CBC 12/13/24 12/14/24 12/15/24 Range/Units 14:07 05:00 04:07 WBC 9.65 10.43 13.25 H (3.29-11.43) 10^3/uL Hgb 12.20 12.30 12.40 (11.27-16.99) g/dL Hct 36.3 L 36.1 L 36.3 L (37-53) % MCV 92.8 91.9 91.4 (82-101) fl Plt Count 62 L 80 L 96 L (157-399) 10^3/cmm Neut % (Auto) 84.8 82.3 85.6 % Neut # (Auto) 8.17 H 8.59 H 11.34 H (1.8-7.7) 10^3/uL BMP 12/14/24 12/15/24 05:00 04:07 Sodium 134 L 132 L Potassium 4.8 4.5 Chloride 93 L 92 L Carbon Dioxide 25 23 BUN 68 H 67 H Creatinine 5.9 H* 5.2 H Glucose 180 H 203 H Calcium 8.4 L 8.4 L Cardiac Enzymes 12/14/24 12/15/24 Range/Units 05:00 04:07 Creatine Kinase 51 64 (39-308) U/L NT-Pro-B Natriuret Pep > 03069 H > 35330 H (0-125) pg/mL Liver Function 12/14/24 12/15/24 12/15/24 Range/Units 05:00 04:07 08:03 Total Bilirubin 4.4 H 7.0 H 6.8 H (0.15-1.2) mg/dL Direct Bilirubin 6.10 H (0.00-0.30) mg/dL GGT 97 H (8-61) U/L AST 27 38 (0-40) U/L ALT 18 24 (0-41) U/L Alkaline Phosphatase 105 94 (40-130) U/L Albumin 2.4 L 2.2 L (3.5-5.2) g/dL Coags 12/13/24 12/13/24 12/13/24 12:30 19:00 21:45 PT 15.00 H INR 1.10 APTT 42.3 H 49.0 H C-Reactive Protein 12/14/24 12/14/24 12/15/24 05:00 12:23 04:07 PT 15.60 H 15.50 H INR 1.16 1.15 APTT 53.1 H 53.8 H C-Reactive Protein 251.7 H 185.2 H Microbiology 12/14/24 05:09 Blood Culture - Preliminary Blood NEGATIVE TO DATE 12/14/24 05:00 Blood Culture - Preliminary Blood NEGATIVE TO DATE Cardiac Studies: Echocardiogram 12/12/24 Echocardiogram Ultrasound 09/04/20
[2024-12-15 12:15] LABS: Glucose Point of Care 189 mg/dL (70-110)
--- NOTE | 2024-12-15 12:59 | PC.SOCIAL ---
IMM Updated Provided pt a copy. No questions voiced. Initialed, dated, & timed a copy & placed in chart.
--- NOTE | 2024-12-15 13:07 | PM.CONSULT ---
Providers/Reason For Consult Consulting Physician/Specialty*: Karyn Rehman MD/ Infectious DIsease Reason for Consult*: staph aureus bacteremia Requesting Physician: José Luis Gonzalez MD Attending Physician: José Luis Gonzalez MD Primary Care Provider: Sandy Kelly MD History of Present Illness History of Present Illness Kt Jett is a 59 year old male h/o CAD, CKD on MHD MWF with a past medical history of complicated MSSA bacteremia in August 2020 at which time he was treated with IV antibiotics. This was thought to be related to his port, port was removed. Of note patient also had a history of MSSA bacteremia in 2019 where source remain undefined. In March 2022, he had MRSA osteomyelitis of the foot. He was admitted to the hospital on December 07, 2024 with intractable back pain. CT of the lumbar spine was performed without contrast which showed moderate to severe foraminal stenosis at L5-S1 due to osteophyte disease. He was discharged with recommendations to continue with spine surgery as outpatient, received a Decadron taper and prescription for opiates for pain management. He returned to the emergency room on December 12, 2024 with altered mental status. His blood culture returned positive for Staph aureus as part of the evaluation. He was in spetic shock needing levophed gtt. On 12/13 he complained of worsening vision, NIHSS was 5 at the time. He was not a candidate for TNKase as he was previously on heparin drip for NTSEMI. MRI of the brain ordered very small acute lacunar infarct in the left ortega radiata. He has a central line in place since admission placed in ER. Typically gets outpatient dialysis via fistula however during the hospital stay the fistula was noted to be malfunctioning therefore he has a temp HD cath in place [place] [facility] [place] He is s/p VJ today which ruled out any vegetations or other sins of endocarditis. He is seen shortly after VJ , still somehwat sedated and unable to participate in history taking. no signs of osteomyelitis, discitis or epidural abscess were noted oand n CT spine. Right arm fistula site underwent US exam and was followed up with CTA of the extremity to rule out any abscess associated with the fistula- this showed a seroma vs hematoma but no abscess. Incidentally noted developing myositis of the right deltoid and devloping abscess. Review of Systems General: Reports: ROS unobtainable due to medical condition Medications/Allergies Home Medications ?Medication ?Instructions ?Recorded ?Confirmed ?Last Taken ?Type pantoprazole 40 mg tablet,delayed 40 mg PO DAILY 07/13/19 12/12/24 12/12/24 08:00 History release vitamin B complex-vitamin C-folic 1 tab PO DAILY 03/03/22 12/12/24 12/12/24 08:00 History acid 0.8 mg tablet Discontinue Dressing Changes #1 ea 07/16/22 12/12/24 Unknown Rx Diabetic shoes with Accomadative #1 ea 08/14/22 12/12/24 Unknown Rx Insoles vit B,C-folic ac 800 mcg-zinc 12.5 1 tab PO DAILY 07/11/23 12/12/24 12/07/24 History mg-selen-D3 2,000 unit-vit E tablet (RenaPlex-D) amlodipine 5 mg tablet 5 mg PO DAILY #90 tabs 09/14/24 12/12/24 12/12/24 Rx citalopram 10 mg tablet 10 mg PO DAILY 09/14/24 12/12/24 12/12/24 08:00 History latanoprost 0.005 % eye drops 1 drp ophthalmic (eye) DAILY 09/14/24 12/12/24 12/11/24 20:00 History minoxidil 2.5 mg tablet 5 mg PO BID 09/14/24 12/12/24 12/12/24 09:00 History polyethylene glycol 3350 17 4 g PO DAILY #238 grams 11/23/24 12/12/24 12/12/24 08:00 Rx gram/dose oral powder (Miralax) dorzolamide 22.3 mg-timolol 6.8 1 drp ophthalmic (eye) BID 12/08/24 12/12/24 12/07/24 08:00 History mg/mL eye drops insulin degludec 100 unit/mL (3 20 unit SUBCUT DAILY 12/08/24 12/12/24 12/07/24 History mL) subcutaneous pen (Tresiba FlexTouch U-100 insulin) carvedilol 6.25 mg tablet 12.5 mg (2 x 6.25 mg) PO BID #180 12/09/24 12/12/24 12/12/24 09:00 Rx tabs dexamethasone 6 mg tablet 6 mg PO DAILY 5 days #5 tabs 12/09/24 12/12/24 12/12/24 08:00 Rx hydralazine 10 mg tablet 10 mg PO Q6H 30 days #120 tabs 12/09/24 12/12/24 12/12/24 06:00 Rx lanthanum 1,000 mg chewable tablet 750 mg PO TID 12/09/24 12/12/24 Unknown History lidocaine 5 % topical patch 1 patch topical Q24H PRN pain 7 12/09/24 12/12/24 Unknown Rx days #7 ea clonidine HCl 0.1 mg tablet 0.1 mg PO BID PRN for sbp>180 or 12/10/24 12/12/24 Unknown Rx dbp>100 30 days #60 tabs hydrocodone 10 mg-acetaminophen 1 - 2 tab PO Q8H PRN pain 3 days 12/10/24 12/12/24 12/11/24 Rx 325 mg tablet #18 tabs insulin lispro 100 unit/mL See Rx Instructions .Route 12/10/24 12/12/24 12/11/24 16:00 Rx subcutaneous solution (Humalog .COMPLEX #10 mL U-100 Insulin) naloxone 4 mg/actuation nasal 4 mg intranasal Q2M PRN opioid 12/10/24 12/12/24 Unknown Rx spray (Narcan) overdose #2 ea naproxen 500 mg tablet 500 mg PO BID PRN pain 7 days #14 12/10/24 12/12/24 Unknown Rx tabs bisacodyl 10 mg rectal suppository 10 mg MA DAILY PRN Constipation 12/12/24 12/12/24 Unknown History (Dulcolax (bisacodyl)) sodium phosphates 19 gram-7 118 ml MA DAILY PRN Constipation 12/12/24 12/12/24 Unknown History gram/118 mL enema (Fleet Enema) Allergies Allergy/AdvReac Type Severity Reaction Status Date / Time No Known Allergies Allergy Verified 12/16/24 07:30 Current Medications Generic Name Dose Route Start Last Admin Trade Name Freq PRN Reason Stop Dose Admin Acetaminophen 650 mg 12/12/24 11:33 12/14/24 21:51 Acetaminophen 325 Mg Tablet PO 650 mg Q6H PRN Administration Mild/Mod Pain Or Temp >/= 101 Hydrocodone Bitart/Acetaminophen 1 tab 12/13/24 17:30 12/15/24 12:04 Hydrocodone-Acetaminophen 10-325 Mg Tablet PO 1 tab Q6H NATHANAEL Administration Aspirin 81 mg 12/12/24 15:35 12/15/24 08:55 Aspirin 81 Mg Ec Tablet PO 81 mg DAILY NATHANAEL Administration Atorvastatin Calcium 40 mg 12/12/24 21:00 12/14/24 21:53 Atorvastatin 40 Mg Tablet PO 40 mg BEDTIME NATHANAEL Administration Brimonidine Tartrate 1 drop 12/13/24 21:00 12/15/24 08:57 Brimonidine 0.2% Op Soln 5 Ml Btl EYE-BOTH 1 drop TID NATHANAEL Administration Citalopram Hydrobromide 10 mg 12/13/24 09:00 12/15/24 08:55 Citalopram 20 Mg Tablet PO 10 mg DAILY NATHANAEL Administration Dorzolamide/Timolol 1 drop 12/12/24 18:00 12/15/24 08:57 Dorzolamide/Timolol Op Soln 10 Ml Btl EYE-BOTH 1 drop BID NATHANAEL Administration Heparin Sodium (Porcine) 5,000 unit 12/14/24 18:15 12/15/24 05:50 Heparin 5,000 Unit/Ml Inj 1 Ml SUBCUT 5,000 unit Q12H NATHANAEL Administration Norepinephrine Bitartrate 4 mg in 250 mls @ 0 mls/hr 12/12/24 12:45 12/13/24 00:55 Levophed IV 0 mcg/min .Q0M NATHANAEL 0 mls/hr Protocol Titration Per Protocol Piperacillin Sod/Tazobactam 50 mls @ 12.5 mls/hr 12/13/24 02:00 12/15/24 07:41 Sod 3.375 gm/ Sodium Chloride IV Infused Q12H NATHANAEL Infusion Insulin Glargine 10 unit 12/13/24 06:00 12/15/24 05:51 Insulin Glargine 100 Units/1 Ml SUBCUT 10 unit QAM NATHANAEL Administration Insulin Human Lispro 0 unit 12/12/24 15:00 12/15/24 12:16 Insulin Lispro 100 Unit/1 Ml SUBCUT 4 unit TIDWM NATHANAEL Administration Protocol Lanolin 1 applic 12/14/24 17:28 12/14/24 19:19 Lanolin Oint 7 Gm TOPICAL 1 applic PRN PRN Administration DRYNESS Latanoprost 1 drop 12/13/24 21:00 12/14/24 21:53 Latanoprost 0.005% Op Soln 2.5 Ml Btl EYE-BOTH 1 drop BEDTIME NATHANAEL Administration Lorazepam 1 mg 12/15/24 09:19 12/15/24 11:06 Lorazepam 1 Mg/0.5 Ml Injection IVP 1 mg Q8H PRN Administration ANXIETY Pantoprazole Sodium 40 mg 12/12/24 11:45 12/15/24 12:04 Pantoprazole 40 Mg Sdv IVP 40 mg Q24H NATHANAEL Administration PFSH Acute PFSH: Medical History NSTEMI (non-ST elevated myocardial infarction) Hypertension Essential hypertension MSSA bacteremia Infection due to Port-A-Cath Anemia Hemodialysis access site with arteriovenous graft CAD (coronary artery disease) Hx of staphylococcal infection Chronic back pain Osteoarthritis Fibromyalgia GERD (gastroesophageal reflux disease) CKD (chronic kidney disease) Lumbar disc disease End stage renal disease on dialysis Diabetes mellitus Hypertensive emergency Congestive heart failure ESRD (end stage renal disease) Diabetes mellitus, type II Cardiomyopathy Surgical History Status post insertion of hemodialysis catheter Status post peritoneal dialysis History of coronary artery stent placement S/P tonsillectomy S/P carpal tunnel release H/O circumcision History of cataract surgery Family History Mother Aneurysm Grandmother Cancer Sister Cancer Social History Smoking and tobacco/nicotine status: unknown if used tobacco/nicotine Alcohol intake: never Substance/Drug Use: former 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 Clean since 1991 Lives independently: Yes Household members: none Housing: House Marital status: service: No Current occupational status: disabled Vitals/I&O/Wt Last Vital Signs Temp 97.9 F 12/15/24 12:00 Pulse 63 12/15/24 12:00 Resp 20 H 12/15/24 12:00 BP 117/47 12/15/24 12:00 Pulse Ox 91 12/15/24 11:00 O2 Del Method Nasal Cannula 12/15/24 08:12 O2 Flow Rate 2 12/15/24 08:12 12/14/24 12/15/24 12/15/24 22:59 06:59 14:59 Intake Total 650 / 897.867 150 / 150 Output Total 1800 / 1800 Balance -1150 / -902.133 150 / 150 Weight last 48 hrs Weight 115.212 kg Weight 115.4 kg Weight 118 kg Weight 116 kg Physical Exam Narrative: General: No acute distress, AO x1 HEENT: PERRLA, pupils bilaterally equal and reactive, pallors not present Chest: Normal vesicular breath sounds, no added sounds, equal good air entry bilaterally CVS: S1-S2 regular, no murmurs, no tachycardia, no gallops, no rubs Abdomen: Soft, nontender, no organomegaly, bowel sounds present Neuro: confused, no facial deformity, AO x1, moves all limbs in bed Data 12/16/24 04:47 12/16/24 04:47 Micro: Microbiology 12/12/24 09:59 Blood Culture - Final Blood Staphylococcus aureus 12/14/24 05:09 Blood Culture - Preliminary Blood NEGATIVE TO DATE 12/14/24 05:00 Blood Culture - Preliminary Blood NEGATIVE TO DATE Other data: Radiology Impressions Abdomen/Pelvis CT 12/12/24 11:33 IMPRESSION: 1. Stable bilateral benign renal cysts 2. Hepatomegaly 3. Severe lumbar spine osteoarthritis and levoscoliosis. 4. Diffuse sigmoid colon diverticulosis Chest CTA 12/12/24 11:33 IMPRESSION: 1. Suboptimal contrast density within the pulmonary arteries small pulmonary emboli can not be ruled out. Consider nuclear medicine perfusion scan. 2. Heavy coronary artery calcifications. 3. Right lower lobe parenchymal density probable atelectasis. 3. Eventration of the right hemidiaphragm. Chest X-Ray 12/12/24 13:04 IMPRESSION: 1. No acute findings. 2. Low lung volumes. 3. Right-sided central line in the SVC. 4. Dorsal spine dextroscoliosis. 5. Eventration of the right hemidiaphragm. Head CT 12/13/24 12:16 IMPRESSION: 1. No evidence of intracranial hemorrhage or mass effect. 2. No acute intracranial findings. Head MRI 12/13/24 12:23 IMPRESSION: 1. Very small acute lacunar infarcts in the LEFT ortega radiata. These may be along the watershed distribution between arterial territories. No hemorrhage. 2. Otherwise mild cerebral and cerebellar volume loss and atrophy. Head/Neck CTA 12/13/24 12:23 IMPRESSION: 1. No significant cervical ICA stenosis. 2. Moderate to advanced intracranial atheromatous disease with segmental narrowing appears advanced for patient this age. 3. Dense cavernous carotid calcification. 4. Moderate to severe segmental stenosis involving the MEDIC[employer]ORD[employer] territories bilaterally RIGHT greater than LEFT. Basilar artery remains patent. Distal vessels appear patent Cervical Spine CT 12/14/24 08:00 IMPRESSION: 1. Moderate spondylitic changes. 2. No evidence of discitis or osteomyelitis. 3. No evidence of epidural abscess Lumbar Spine CT 12/14/24 08:00 IMPRESSION: 1. No evidence of discitis/osteomyelitis. No evidence of epidural abscess. 2. Advanced spondylitic changes stable since 12/07/[address] 12/14/24 08:00 IMPRESSION: 1. No acute thoracic spine findings Upper Extremity CTA 12/14/24 12:56 IMPRESSION: 1. There is diffuse edema of the deltoid concerning for myositis.. A collection of gas bubbles and low-attenuation material suggests developing abscess along the deep margin of the deltoid. 2. Patent right upper extremity arteriovenous fistula. There is a 1.9 cm low-attenuation collection posterior to the proximal aspect of the venous outflow which could be a small seroma or hematoma. No regional inflammatory change. 3. Right lower lobe airspace opacity is concerning for pneumonia. 4. Degenerative change noted in the right shoulder with findings including os acromiale. Abdomen Ultrasound 12/15/24 07:39 IMPRESSION: Technically difficult study due to bowel gas and body habitus. 1. Hepatomegaly. Nodular capsular contour suspicious for cirrhosis. 2. No ascites. 3. Tiny calculus or sludge ball in the gallbladder. No gallbladder wall thickening or pericholecystic fluid seen today. 4. Normal common bile duct measuring 5 mm. 5. No hydronephrosis in the RIGHT kidney. 6. Small simple cyst RIGHT kidney Laboratory Results WBC 12.67 10^3/uL (3.29-11.43) H 12/16/24 04:47 RBC 3.95 10^6/uL (3.85-5.65) 12/16/24 04:47 Hgb 12.30 g/dL (11.27-16.99) 12/16/24 04:47 Hct 36.8 % (37-53) L 12/16/24 04:47 MCV 93.2 fl (82-101) 12/16/24 04:47 MCH 31.1 pg (27-33) 12/16/24 04:47 MCHC 33.4 g/dL (30-55) 12/16/24 04:47 RDW 14.9 % (12.1-15.1) 12/16/24 04:47 Plt Count 123 10^3/cmm (157-399) L 12/16/24 04:47 MPV 11.4 fL (7.4-10.4) H 12/16/24 04:47 Neut % (Auto) 86.5 % 12/16/24 04:47 Lymph % (Auto) 4.5 % 12/16/24 04:47 [place] % (Auto) 7.1 % 12/16/24 04:47 Eos % (Auto) 0.0 % 12/16/24 04:47 Baso % (Auto) 0.2 % 12/16/24 04:47 Neut # (Auto) 10.96 10^3/uL (1.8-7.7) H 12/16/24 04:47 Lymph # (Auto) 0.6 10^3/uL (0.8-4.8) L 12/16/24 04:47 [place] # (Auto) 0.9 10^3/uL (0.2-0.9) 12/16/24 04:47 Eos # (Auto) 0.0 10^3/uL (0.0-0.8) 12/16/24 04:47 Baso # (Auto) 0.0 10^3/uL (0.0-0.1) 12/16/24 04:47 Nucleated RBC % (auto) 0 % 12/16/24 04:47 Nucleated RBCs # 0.0 /100WBC 12/16/24 04:47 Peripher Smr Path Cons Sent for review 12/12/24 09:59 ESR 47 mm/hr (0-10) H 12/12/24 09:59 PT 15.50 SECONDS (12.1-14.9) H 12/15/24 04:07 INR 1.15 (0.8-1.2) 12/15/24 04:07 APTT 53.8 SECONDS (23.9-36.7) H 12/14/24 12:23 D-Dimer 6.22 ug/mLFEU (0-0.59) H 12/12/24 15:52 Specimen Type Arterial 12/12/24 09:41 Sample Site Brachial, left 12/12/24 09:41 ABG pH 7.43 (7.35-7.45) 12/12/24 09:41 ABG pCO2 34.7 mmHg (35-45) L 12/12/24 09:41 ABG pO2 72.5 mmHg (80.0-100.0) L 12/12/24 09:41 ABG PO2/FiO2 Ratio 226 12/12/24 09:41 ABG HCO3 23.2 mmol/L (22-26) 12/12/24 09:41 ABG O2 Saturation 93.4 12/12/24 09:41 ABG Base Excess -0.5 mmol/L (-2.0-2.0) 12/12/24 09:41 Eliazar Test N/a 12/12/24 09:41 A-a O2 Gradient 14.4 mmHg (5-10) H 12/12/24 09:41 Hematocrit 42.6 % (42-52) 12/12/24 09:41 Hgb O2 Saturation 91.6 % (95-100) L 12/12/24 09:41 Carboxyhemoglobin 1.1 %THgb (0.4-20.1) 12/12/24 09:41 Methemoglobin 0.8 % (0.4-1.5) 12/12/24 09:41 Total Hemoglobin 13.9 g/dL (14-18) L 12/12/24 09:41 Sodium 127.0 mmol/L (131-143) L 12/12/24 09:41 Potassium 5.1 mmol/L (3.5-5.0) H 12/12/24 09:41 Glucose 346.0 mg/dL (70-115) H 12/12/24 09:41 Ionized Calcium 1.1 mmol/L (1.1-1.4) 12/12/24 09:41 O2 Delivery Device Nc 12/12/24 09:41 O2 Liters/Min 3.0 % 12/12/24 09:41 FiO2 32.0 % 12/12/24 09:41 Lamination Assembler ID Amh 12/12/24 09:41 Sodium 135 mmol/L (136-145) L 12/16/24 04:47 Potassium 4.8 mmol/L (3.5-5.1) 12/16/24 04:47 Chloride 95 mmol/L (98-107) L 12/16/24 04:47 Carbon Dioxide 24 mmol/L (22-29) 12/16/24 04:47 Anion Gap 20.8 (5-19) H 12/16/24 04:47 BUN 58 mg/dL (6-20) H 12/16/24 04:47 Creatinine 5.1 mg/dL (0.7-1.2) H 12/16/24 04:47 GFR Calculation 11.7 mL/min (90-130) L 12/16/24 04:47 Glucose 176 mg/dL (65-115) H 12/16/24 04:47 POC Glucose 172 mg/dL (70-110) H 12/16/24 06:52 Estimat Average Glucose 177 12/12/24 09:59 Hemoglobin A1c 7.8 % (4.0-6.0) H 12/12/24 09:59 Calculated Osmolality 300 mOsm/kg (285-295) H 12/16/24 04:47 Lactic Acid 2.2 mmol/L (0.5-2.2) 12/12/24 09:59 Lactic Acid (Sepsis) 3.1 mmol/L (0.5-2.2) H 12/12/24 13:33 Lactate 1.2 mmol/L (0.5-2.2) 12/15/24 04:07 Calcium 8.4 mg/dL (8.5-10.5) L 12/16/24 04:47 Phosphorus 5.5 mg/dL (2.5-4.5) H 12/15/24 04:07 Magnesium 2.3 mg/dL (1.7-2.3) 12/15/24 04:07 Total Bilirubin 6.8 mg/dL (0.15-1.2) H 12/16/24 04:47 Direct Bilirubin 6.10 mg/dL (0.00-0.30) H 12/15/24 08:03 Indirect Bilirubin 0.70 12/15/24 08:03 GGT 97 U/L (8-61) H 12/15/24 08:03 AST 37 U/L (0-40) 12/16/24 04:47 ALT 21 U/L (0-41) 12/16/24 04:47 Alkaline Phosphatase 97 U/L (40-130) 12/16/24 04:47 Ammonia 22 umol/L (16-60) 12/15/24 08:03 Creatine Kinase 64 U/L (39-308) 12/15/24 04:07 Troponin T Baseline 260 ng/L (0-15) H* 12/12/24 09:59 Troponin T 120 Minute 248.6 ng/L (0-15) H 12/12/24 11:49 Delta Troponin T -11.4 ABS# (0-10) L 12/12/24 11:49 C-Reactive Protein 185.2 mg/L (0.0-4.9) H 12/15/24 04:07 NT-Pro-B Natriuret Pep > 65905 pg/mL (0-125) H 12/15/24 04:07 Total Protein 6.1 g/dL (6.6-8.7) L 12/16/24 04:47 Albumin 2.2 g/dL (3.5-5.2) L 12/16/24 04:47 Globulin 3.9 g/dL (1.3-4.6) 12/16/24 04:47 Lipase 14 U/L (13-60) 12/15/24 08:03 Procalcitonin 4.41 ng/mL (0-0.5) H 12/15/24 04:07 TSH 1.22 uIU/mL (0.27-4.20) 12/12/24 09:59 Salicylates < 0.3 mg/dL (3-10) L 12/12/24 09:59 Acetaminophen < 5.0 ug/mL (10-30) L 12/12/24 09:59 Ethyl Alcohol < 10 mg/dL (0-10) 12/12/24 11:49 Serum Ketones Negative (Negative) 12/12/24 09:59 A&P Assessment and plan (1) Staphylococcus aureus bacteremia: 59-year-old male with ESRD on hemodialysis via right arm AV fistula admitted to the hospital with altered mental status and found to have Staph aureus bacteremia. Blood culture positive from December 12, 2024. Subsequent blood culture thus far is negative. Review of sensitivity reveals this to be MSSA Discontinue piperacillin/tazobactam and vancomycin Changed treatment to organism directed therapy with cefazolin 1 g IV every 24 hours in keeping with his impaired kidney function. Source of infection may be developing myositis versus abscess of the right deltoid as noted on the CTA of the extremities. Uncertain if this may be the primary problem or represent a secondary embolization. On examination there is a scab over the right deltoid, patient refused, telehealth if he had any injury over your site. He blanco owns several cats and statess that he may have scratched him at some point. Denies any recent intramuscular injections. No known history of IV drug use. Recently had presented with intractable back pain. CT of the lumbar spine without signs of osteomyelitis, discitis or epidural abscess. VJ taken today without any vegetations Right arm fistula site without any discernable abscess, small collection likely to represent hematoma vs seroma. No noted thrombosis. Dialysis fistula has reportedly not been accessible during hospital course, patient currently has a right femoral temp HD line. Also has right IJ central line placed during this admission. (2) Myositis: as above may be secondary embolization vs primary source does not appear to have any drainable collection small scab noted over area of involvement uncertain if there has been recent trauma at this site (3) Stroke: management per primary (4) ESRD (end stage renal disease): on maintainence HD , typically right arm fistula PDMP PDMP Reviewed: Not Reviewed Coding Level of Care Code Acute Code for Chg Fwd High MDM includes number and complexity of problems actively addressed during encounter, amount and/or complexity of data reviewed/ordered and described risk of complication, morbidity or mortality of management as documented Diagnoses Staphylococcus aureus bacteremia R78.81; B95.61 Myositis M60.9 Stroke I63.9 ESRD (end stage renal disease) N18.6
--- NOTE | 2024-12-15 13:55 | ANE.PACU2 ---
Inpatient post-anesthesia follow up: Airway intact: Yes Vital signs: Temperature 97.9 F Pulse Rate 63 Respiratory Rate 20 Blood Pressure 117/47 Pulse Oximetry 91 Oxygen Delivery Me thod [ Nasal Cannula Current Rate & Del renard] Oxygen Delivery Me thod Nasal Cannula Oxygen Flow Rate [ Current Rate 2 & Delivery] Oxygen Flow Rate 2 Fraction of Inspir ed Oxygen Hydration adequate: Yes Nausea and vomiting: No Pain level: 3
--- NOTE | 2024-12-15 14:15 | P.PN_ITS ---
<Statement entered by Herbie Clark MD - 12/15/24 21:21> Patient was evaluated and cared for in conjunction with an advanced practice practitioner. I personally examined the patient and reviewed the chart and all pertinent data including imaging, telemetry, and laboratory results. I discussed the patient in detail with the advanced practice practitioner. Please see their note for complete H&P testing result and agreed upon plan of care for the patient. Transvaginal echocardiogram was performed which showed normal ejection fraction no intra cardiac shunt and no source of infection such as vegetation noted GENERAL: Patient is fatigued but oriented x 2. HEART: Regular S1 and S2. No murmur, rub or gallop. LUNGS: Clear to auscultate bilaterally. CENTRAL NERVOUS SYSTEM: Grossly nonfocal. EXTREMITIES: Lower extremities with out edema bilaterally. Bacteremia Status post transvaginal echocardiogram which showed no obvious source of intracardiac bacteremia Subjective 2 Subjective: Patient underwent VJ today to rule out endocarditis. No vegetation or signs of endocarditis was seen. Patient tolerated procedure well without complications. Patient still slightly confused at times. Vitals/I&O/Wt Last Vital Signs Temp 97.9 F 12/15/24 12:00 Pulse 63 12/15/24 12:00 Resp 20 H 12/15/24 12:00 BP 117/47 12/15/24 12:00 Pulse Ox 91 12/15/24 11:00 O2 Del Method Nasal Cannula 12/15/24 08:12 O2 Flow Rate 2 12/15/24 08:12 12/14/24 12/15/24 12/15/24 22:59 06:59 14:59 Intake Total 650 / 897.867 150 / 150 Output Total 1800 / 1800 Balance -1150 / -902.133 150 / 150 Weight last 48 hrs Weight 254 lb Weight 254 lb 6.615 oz Weight 260 lb 2.327 oz Weight 255 lb 11.779 oz Physical Exam 2 Narrative: General: No apparent distress, healthy appearing, well nourished HENMT: normoceophalic Muskuloskeletal: Full ROM Respiratory: Normal respiratory effort, clear to auscultation bilaterally throughout all lung meier, no use of accessory muscles Cardio: No JVD, regular rate, regular rhythm, ectopic beats heard sporatically, S1 S2 normal, no murmurs, peripheral pulses 2+ radial palpated bilaterally GI: Normal to inspection, nondistended Extremities: Full ROM, normal, normal capillary refill, no cyanosis or edema Neuro: Alert and oriented x3, pleasantly confused at times Psych: Affect normal Skin: No rashes or lesions noted, no wounds Data 12/15/24 04:07 12/15/24 04:07 Micro: Microbiology 12/12/24 09:59 Blood Culture - Final Blood Staphylococcus aureus 12/14/24 05:09 Blood Culture - Preliminary Blood NEGATIVE TO DATE 12/14/24 05:00 Blood Culture - Preliminary Blood NEGATIVE TO DATE A&P Assessment and plan (1) Congestive heart failure: (2) NSTEMI (non-ST elevated myocardial infarction): (3) Thrombocytopenia: (4) ESRD (end stage renal disease): (5) Staphylococcus aureus bacteremia: Plan Patient's VJ ruled out infective endocarditis. Patient tolerated procedure well. PDMP PDMP Reviewed: Not Reviewed Attestations 2 Medical Necessity Statement*: Defer to primary. Coding Level of Care Code Acute Code for [facility] Fwd Diagnoses Other congestive heart failure I50.9 Heart failure type: other NSTEMI (non-ST elevated myocardial infarction) I21.4 Thrombocytopenia D69.6 ESRD (end stage renal disease) N18.6 Staphylococcus aureus bacteremia R78.81; B95.61
--- NOTE | 2024-12-15 15:43 | PC.OT ---
OT tx session attempted; Patient unable to keep eyes open
[2024-12-15] MEDS: heparin, porcine 1,000 unit/mL INJ 10 mL 1000 UNIT IV (16:05)
[2024-12-15 17:09] LABS: Glucose Point of Care 157 mg/dL (70-110)
--- NOTE | 2024-12-15 17:15 | P.PN_ITS ---
Subjective 2 Subjective: - Patient was examined this morning - He is alert to person, to place, not t o time - He follows commands - Visual field testing he is able to cou nt my fingers, and all his visual meier - His biggest complaint is continues to complain of lower back pain, he tells me he hurts all over - We discussed his Staph aureus bacterem ia, were trying to find a source, his CT of his spine does not show a source, plan on VJ today, we also discussed that his right arm dialysis fistula could be a source, however the CT of his right upper extremity was inconclusive, but he does have scratches on his right arm, it was not able to get a clear answer from him how the scratches got there - I did discuss with him that the dialys is nurse was unable to access the right arm dialysis fistula this morning, the CT of the right arm did show good flow across the dialysis fistula, but we will have to put in a temporary dialysis catheter - During my discussion he can understand what I am saying, can follow commands, but does easily get distracted about his back pain, he is very uncomfortable, at times becomes distracted by various things, is hard to reorient him, at times remains confused - He is moving his bilateral upper extre mities and lower extremities I cannot discern any focal weakness Vitals/I&O/Wt Last Vital Signs Temp 97.9 F 12/15/24 12:00 Pulse 66 12/15/24 16:30 Resp 20 H 12/15/24 16:30 BP 181/82 12/15/24 16:30 Pulse Ox 95 12/15/24 16:00 O2 Del Method Nasal Cannula 12/15/24 08:12 O2 Flow Rate 2 12/15/24 08:12 12/15/24 12/15/24 12/15/24 06:59 14:59 22:59 Intake Total 150 / 150 Balance 150 / 150 Weight last 48 hrs Weight 115.212 kg Weight 115.4 kg Weight 118 kg Weight 116 kg Physical Exam 2 Const: COMMON NORMALS: no acute distress EXAM LIMITATIONS: altered mental status ORIENTATION/CONSCIOUSNESS: Yes awake, Yes oriented to person, Yes oriented to place and Yes confused; not oriented to time OTHER: Pupils equal round reactive to light Eye: COMMON NORMALS: Equal, round and reactive pupils present and EOMs intact bilaterally PUPIL: Yes Equal, round and reactive pupils present Resp: COMMON NORMALS: normal respiratory effort, No retractions, No use of accessory muscles and clear to auscultation bilaterally AUSCULTATION: clear to auscultation bilaterally Cardio: COMMON NORMALS: regular rate, regular rhythm, S1 normal heart sound present and S2 normal heart sound present RATE: regular rate RHYTHM: r egular rhythm HEART SOUNDS: S1 normal heart sound present and S2 normal heart sound present GI: COMMON NORMALS: Normal to inspection, nondistended, normoactive bowel sounds present and non-tender Extremity: COMMON NORMALS: no pedal edema Neuro: SENSORIUM/ORIENTATION: Yes oriented to person, Yes oriented to place and No oriented to time Psych: COMMON NORMALS: mental status grossly normal Skin: NARRATIVE SKIN EXAM: Right arm dialysis fistula site good thrill, sounds patent Multiple superficial skin abrasions, scratches Data 12/15/24 04:07 12/15/24 04:07 Micro: Microbiology 12/12/24 09:59 Blood Culture - Final Blood Staphylococcus aureus 12/14/24 05:09 Blood Culture - Preliminary Blood NEGATIVE TO DATE 12/14/24 05:00 Blood Culture - Preliminary Blood NEGATIVE TO DATE A&P Assessment and plan (1) Encephalopathy acute: (2) NSTEMI (non-ST elevated myocardial infarction): (3) Uremia: (4) Hyponatremia: (5) Polypharmacy: (6) Increased anion gap metabolic acidosis: (7) Hyperglycemia: (8) Diabetes mellitus, type II: (9) ESRD (end stage renal disease): (10) Hypertension: (11) Congestive heart failure: (12) History of coronary artery stent placement: (13) Thrombocytopenia: (14) Intractable back pain: (15) Staphylococcus aureus bacteremia: (16) Ischemic cerebrovascular accident (CVA) due to global hypoperfusion with watershed infarction: Plan Staphylococcus aureus bacteremia -procal 5.92, crp 251.7 - Seen in 4 out of 4 blood cultures - Back in 2020, he also had Staph aureus bacteremia, source was subclavian port which was removed - Now with recurrent Staphylococcus aureus bacteremia - He does complain of back pain - CT cervical/lumbar/thoracic spine no evidence discitis, vertebral osteomyelitis, abscess -Transesophageal echocardiogram no valvular vegetations - He does have a right arm dialysis fistula in place with 1 ultrasound the dialysis fistula, -CT right arm [place] [id number] IMPRESSION: 1. There is diffuse edema of the deltoid concerning for myositis.. A collection of gas bubbles and low-attenuation material suggests developing abscess along the deep margin of the deltoid. 2. Patent right upper extremity arteriovenous fistula. There is a 1.9 cm low-attenuation collection posterior to the proximal aspect of the venous outflow which could be a small seroma or hematoma. No regional inflammatory change. - Plan - For now continue vancomycin, until sensitivities are back -Infectious disease consulted - Does have a history of MRSA Issues with the right arm dialysis fistula site - CTA Right subclavian artery: No occlusion or significant stenosis. Axillary artery: No occlusion or significant stenosis. Brachial artery: No occlusion or significant stenosis. Radial artery: No occlusion or significant stenosis. Ulnar artery: There is a patent arteriovenous fistula between the ulnar artery and cephalic vein. - General Surgery consulted for temporary dialysis catheter placement Acute CVA due to global hypoperfusion with watershed stroke Head CT no acute findings CTA head and neck CT/CT angio headneck* [id number] IMPRESSION: 1. No significant cervical ICA stenosis. 2. Moderate to advanced intracranial atheromatous disease with segmental narrowing appears advanced for patient this age. 3. Dense cavernous carotid calcification. 4. Moderate to severe segmental stenosis involving the [employer] territories bilaterally RIGHT greater than LEFT. Basilar artery remains patent. Distal vessels appear patent MRI brain MR/MR head wo con* [id number] IMPRESSION: 1. Very small acute lacunar infarcts in the LEFT ortega radiata. These may be along the watershed distribution between arterial territories. No hemorrhage. 2. Otherwise mild cerebral and cerebellar volume loss and atrophy - Etiology likely secondary to hypotension episode in the emergency room plan: -neurochecks -nih stroke scale -aspirin -will hold on plavix given thromboytopenia, Plavix -permissive hypertension - Will monitor closely - Avoid hypotensive episodes Bilateral eye blindness - Etiology unclear -Symptomatology resolved last night -Assessment difficult today - Reach out to GI, has a history of glaucoma, started eyedrops for possible Acute encephalopathy, likely metabolic - Currently alert to person, not place, not to time -Patient can follow simple commands - Waxing and waning mentation -Etiology - Multifactorial -Uremic encephalopathy, BUN 107 -Hyponatremia serum sodium 127 -Possibly polypharmacy from his pain medications -Possible side effect of Decadron -Staph aureus bacteremia, sepsis - Watershed stroke Plan - Neurochecks -NIH stroke scale - Nephrology consulted for dialysis 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, reportedly GIST per pathology Uremic encephalopathy - Nephrology consulted Acute hyponatremia - Nephrology consulted for dialysis Increased anion gap metabolic acidosis - Ketones negative - Plans on dialysis Type 2 diabetes mellitus, A1c 7.8 - Lantus 10 units daily - Low-dose sliding scale Hyperbilirubinemia, bilirubin 7.0, direct hyperbilirubinemia AST within normal, ALT within normal limits, alk phos within normal limits, will monitor Ultrasound abdomen US/US abdomen complete* [id number] IMPRESSION: Technically difficult study due to bowel gas and body habitus. 1. Hepatomegaly. Nodular capsular contour suspicious for cirrhosis. 2. No ascites. 3. Tiny calculus or sludge ball in the gallbladder. No gallbladder wall thickening or pericholecystic fluid seen today. 4. Normal common bile duct measuring 5 mm. 5. No hydronephrosis in the RIGHT kidney. 6. Small simple cyst RIGHT kidney - Could be Gilbert's disease - Cholestatic jaundice from sepsis, antibiotics - Monitor liver function, alk phos, bilirubin - NSTEMI - No chest pain complaints - T wave inversions in anterior leads - Cardiac echo CONCLUSIONS Technically limited quality echocardiogram because of poor ultrasonic windows. LV systolic function is mildly reduced with EF of 45-50%. RV hypokinesis noted Trace mitral regurgitation Mild tricuspid regurgitation Trace pulmonic regurgitation. Small pericardial effusion IVC appears to be dilated - Heparin drip completed 48 hours - Recent immobility with back pain venous ultrasound, CT angiogram of the chest negative for DVT Systolic CHF exacerbation, fluid overload, BNP over 70,000 - Continue inpatient dialysis Intractable back pain - Possibly withdrawing from his home hydrocodone, resume hydrocodone 10 every 6 hours scheduled Thrombocytopenia, etiology unclear, peripheral smear Full code Heparin for DVT prophylaxis Patient is Taoist does not accept blood products PDMP PDMP Reviewed: Last Reviewed 12/13/24 17:30 by José Luis Gonzalez MD Attestations 2 Medical Necessity Statement*: Plan for today transesophageal echocardiogram, spoke to cardiology, spoke to general surgery, dialysis catheter placement, spoke to infectious disease Diagnoses Encephalopathy acute G93.40 NSTEMI (non-ST elevated myocardial infarction) I21.4 Uremia N19 Hyponatremia E87.1 Polypharmacy Z79.899 Increased anion gap metabolic acidosis E87.29 Hyperglycemia R73.9 Type 2 diabetes mellitus with chronic kidney disease on chronic dialysis, unspecified whether terminal gauger insulin use E11.22; N18.6; Z99.2 Chronic kidney disease stage: on chronic dialysis Diabetes mellitus complication detail: with chronic kidney disease Diabetes mellitus complication status: with kidney complications Diabetes mellitus fci insulin use: unspecified fci insulin use status ESRD (end stage renal disease) N18.6 Essential hypertension I10 Hypertension type: essential hypertension Other congestive heart failure I50.9 Heart failure type: other History of coronary artery stent placement Z95.5 Thrombocytopenia D69.6 Intractable back pain M54.9 Staphylococcus aureus bacteremia R78.81; B95.61 Ischemic cerebrovascular accident (CVA) due to global hypoperfusion with watershed infarction I63.9
[2024-12-15] MEDS: ceFAZolin 1,000 mg SDV 1000 MG IVP (19:37)
[2024-12-15] MEDS: atorvastatin 40 mg Tablet PO (21:46)
[2024-12-15] MEDS: latanoprost 0.005% Op Soln 2.5 mL Btl 1 DROP EYE-BOTH (21:47)
[2024-12-16] VITALS (47 sets, daily range): BP systolic 115–185; BP diastolic 47–77; PULSE 66–82; RESP 0–29; TEMP 36.6–37.2; O2SAT 86–100
[2024-12-16 05:00] LABS: Basophils % 0.2 %; Hematocrit 36.8 % (37-53); Lymphocytes # 0.6 10^3/uL (0.8-4.8); Lymphocytes % 4.5 %; Mean Corpuscular HGB Conc 33.4 g/dL (30-55); Mean Corpuscular Hemoglobin 31.1 pg (27-33); Mean Corpuscular Volume 93.2 fl (82-101); Mean Platelet Volume 11.4 fL (7.4-10.4); Monocytes # 0.9 10^3/uL (0.2-0.9); Monocytes % 7.1 %; Neutrophils # 10.96 10^3/uL (1.8-7.7); Neutrophils % 86.5 %; Nucleated Red Blood Cells % 0 %; Platelet Count 123 10^3/cmm (157-399); Red Blood Count 3.95 10^6/uL (3.85-5.65); Red Cell Distribution Width 14.9 % (12.1-15.1); White Blood Count 12.67 10^3/uL (3.29-11.43)
[2024-12-16] MEDS: HYDROcodone-acetaminophen 10-325 mg Tablet 1 TAB PO ×2 (05:09→11:54)
[2024-12-16 05:19] LABS: Alanine Aminotransferase 21 U/L (0-41); Albumin Level 2.2 g/dL (3.5-5.2); Alkaline Phosphatase 97 U/L (40-130); Anion Gap 20.8 (5-19); Aspartate Amino Transferase 37 U/L (0-40); Blood Urea Nitrogen 58 mg/dL (6-20); Calcium 8.4 mg/dL (8.5-10.5); Carbon Dioxide 24 mmol/L (22-29); Chloride 95 mmol/L (98-107); Creatinine Clr Calc Pharmacy 20.3559; Globulin 3.9 g/dL (1.3-4.6); Glomerular Filtration Rate 11.7 mL/min (90-130); Glucose 176 mg/dL (65-115); Osmolality Calculated 300 mOsm/kg (285-295); Potassium 4.8 mmol/L (3.5-5.1); Sodium 135 mmol/L (136-145); Total Bilirubin 6.8 mg/dL (0.15-1.2); Total Protein 6.1 g/dL (6.6-8.7)
--- NOTE | 2024-12-16 06:32 | P.PN_ITS ---
Subjective 2 Subjective: remians confused Medications: Reviewed: Yes Vitals/I&O/Wt Last Vital Signs Temp 97.9 F 12/15/24 20:08 Pulse 71 12/15/24 22:30 Resp 21 H 12/15/24 22:30 BP 157/66 12/15/24 22:30 Pulse Ox 95 12/15/24 22:30 O2 Del Method Nasal Cannula 12/15/24 08:12 O2 Flow Rate 2 12/15/24 08:12 12/15/24 12/15/24 12/16/24 14:59 22:59 06:59 Intake Total 150 / 150 300 / 450 Output Total 2800 / 2800 Balance 150 / 150 -2500 / -2350 Weight last 48 hrs Weight 114.3 kg Weight 115.212 kg Weight 115.4 kg Physical Exam 2 Narrative: GEN: nad, lethargic HEAD: normocephalic, atraumatic EYES: eyes are closed HEENT: mmm NECK: no jvd CV: rrr LUNGS: diminished BS ABD: soft, nt, nd EXT: NO LE edema NEURO: lethargic SKIN: no rash Data 12/16/24 04:47 12/16/24 04:47 Micro: Microbiology 12/12/24 09:59 Blood Culture - Final Blood Staphylococcus aureus 12/14/24 05:09 Blood Culture - Preliminary Blood NEGATIVE TO DATE 12/14/24 05:00 Blood Culture - Preliminary Blood NEGATIVE TO DATE A&P Assessment and plan (1) ESRD (end stage renal disease): Plan 1. End-stage renal disease- he is on maintenance HD on a MWF schedule. he had hd on 12/12 and 12/13 due to encephalopathy. he received IV contrast and had HD yesterday Next HD tomorrow s/p temp HD catheter due to AVF malfunction 2. History of hypertension- resume home meds 3. Anemia in ckd- Hemoglobin at goal 4. Intractable back pain- due to lumbar radiculopathy , 5. History of coronary artery disease 6. Encephalopathy- likely metabolic 7. RUE CTA concerning for myositis and ? abscess, general surgery following Pt evaluated using audiovisual cart. Time spent 20 min PDMP PDMP Reviewed: Not Reviewed Attestations 2 Medical Necessity Statement*: per katalina Coding Level of Care Code Acute Code for Chg Fwd Diagnoses ESRD (end stage renal disease) N18.6
[2024-12-16] MEDS: insulin glargine 100 units/1 mL 10 UNIT SUBCUT (06:53)
[2024-12-16] MEDS: LORazepam 1 MG/0.5 ML injection IVP (07:05)
[2024-12-16 07:12] LABS: Glucose Point of Care 172 mg/dL (70-110)
--- NOTE | 2024-12-16 08:06 | PC.NURSE ---
Patient oriented to being in [facility], confused to year and month and being in hospital, pulling off telemetry and pulse ox, refusing to wear oxygen
[2024-12-16] MEDS: insulin lispro 100 unit/1 mL SUBCUT ×3 (08:16→17:27)
[2024-12-16] MEDS: aspirin 81 mg EC Tablet PO (08:16)
[2024-12-16] MEDS: citalopram 20 mg Tablet 10 MG PO (08:17)
[2024-12-16] MEDS: brimonidine 0.2% Op Soln 5 mL Btl 1 DROP EYE-BOTH ×3 (08:27→21:33)
[2024-12-16] MEDS: dorzolamide/timolol Op Soln 10 mL Btl 1 DROP EYE-BOTH ×2 (08:27→17:30)
--- NOTE | 2024-12-16 08:41 | P.PN_ITS ---
Subjective 2 Subjective: Right groin temporary dialysis catheter functional Vitals/I&O/Wt Last Vital Signs Temp 97.9 F 12/16/24 00:00 Pulse 75 12/16/24 08:30 Resp 9 L 12/16/24 06:30 BP 161/63 12/16/24 08:30 Pulse Ox 90 12/16/24 08:30 O2 Del Method Nasal Cannula 12/15/24 08:12 O2 Flow Rate 2 12/15/24 08:12 12/15/24 12/16/24 12/16/24 22:59 06:59 14:59 Intake Total 300 / 450 0 / 450 Output Total 2800 / 2800 Balance -2500 / -2350 0 / -2350 Weight last 48 hrs Weight 246 lb 0.574 oz Weight 251 lb 15.814 oz Weight 254 lb Weight 254 lb 6.615 oz Physical Exam 2 Narrative: Chest: Unlabored breathing room air. No lymphadenopathy. Heart: Regular rate and rhythm. Abdomen: Soft, nontender, nondistended. No masses or lymphadenopathy. Right groin temporary dialysis catheter functional Data 12/16/24 04:47 12/16/24 04:47 Micro: Microbiology 12/12/24 09:59 Blood Culture - Final Blood Staphylococcus aureus 12/14/24 05:09 Blood Culture - Preliminary Blood NEGATIVE TO DATE 12/14/24 05:00 Blood Culture - Preliminary Blood NEGATIVE TO DATE A&P Assessment and plan (1) CKD (chronic kidney disease): Plan 59-year-old male status post temporary dialysis catheter placement. AV fistula is nonfunctional. Will remain available should the patient require a tunneled dialysis catheter. PDMP PDMP Reviewed: Not Reviewed Attestations 2 Medical Necessity Statement*: N/A Coding Level of Care Code 63439 Diagnoses CKD (chronic kidney disease) N18.9
--- NOTE | 2024-12-16 10:15 | CT_ITS ---
WS: [id number] CT HEAD TECHNIQUE: Noncontrast CT of the head obtained from the skullbase to the vertex. CLINICAL INFORMATION: ams COMPARISON: CT 12/13/2024 DLP: 1234.[address] scans at [facility] use at least one of these dose optimization techniques: automated exposure control; mA and/or kV adjustment per patient size (includes targeted exams where dose is matched to clinical indication); or iterative reconstruction. FINDINGS: Residual intracranial contrast from prior contrast-enhanced CT studies. No evidence of intracranial hemorrhage or mass effect. Vascular calcification. A few areas of mineralization in the basal ganglia. Periventricular vessel enhancement or mineralization in the periventricular white matter similar to previous. Mild small vessel changes. Mild parenchymal volume loss. Retention cyst or polyp LEFT maxillary sinus. Mastoid air cells are well aerated. CT/CT head wo con* [id number] IMPRESSION: 1. No evidence of intracranial hemorrhage or mass effect. 2. No acute intracranial findings.
[2024-12-16 11:47] LABS: Glucose Point of Care 173 mg/dL (70-110)
[2024-12-16] MEDS: pantoprazole 40 mg SDV IVP (11:54)
[2024-12-16] MEDS: doxycycline 100 MG in sodium chloride 0.9% (plus) 100 ML IV (13:50)
--- NOTE | 2024-12-16 15:36 | P.PN_ITS ---
<Statement entered by Herbie Clark MD - 12/17/24 22:35> Patient was evaluated and cared for in conjunction with an advanced practice practitioner. I personally examined the patient and reviewed the chart and all pertinent data including imaging, telemetry, and laboratory results. I discussed the patient in detail with the advanced practice practitioner. Please see their note for complete H&P testing result and agreed upon plan of care for the patient. Subjective 2 Subjective: Patient's VJ was negative. He still remains pleasantly confused at times. Vitals/I&O/Wt Last Vital Signs Temp 97.9 F 12/16/24 00:00 Pulse 68 12/16/24 14:00 Resp 20 H 12/16/24 14:00 BP 127/64 12/16/24 14:00 Pulse Ox 95 12/16/24 14:00 O2 Del Method Nasal Cannula 12/15/24 08:12 O2 Flow Rate 2 12/15/24 08:12 12/16/24 12/16/24 12/16/24 06:59 14:59 22:59 Intake Total 0 / 450 Balance 0 / -2350 Weight last 48 hrs Weight 246 lb 0.574 oz Weight 251 lb 15.814 oz Weight 254 lb Weight 254 lb 6.615 oz Physical Exam 2 Narrative: General: No apparent distress, healthy appearing, well nourished HENMT: normoceophalic Muskuloskeletal: Full ROM Respiratory: Normal respiratory effort, clear to auscultation bilaterally throughout all lung meier, no use of accessory muscles Cardio: No JVD, regular rate, regular rhythm, ectopic beats heard sporatically, S1 S2 normal, no murmurs, peripheral pulses 2+ radial palpated bilaterally GI: Normal to inspection, nondistended Extremities: Full ROM, normal, normal capillary refill, no cyanosis or edema Neuro: Alert and oriented x3, pleasantly confused at times Psych: Affect normal Skin: No rashes or lesions noted, no wounds Data 12/16/24 04:47 12/16/24 04:47 Micro: Microbiology 12/12/24 09:59 Blood Culture - Preliminary Blood Staphylococcus aureus 12/14/24 05:09 Blood Culture - Preliminary Blood Staphylococcus aureus A&P Assessment and plan (1) Congestive heart failure: (2) NSTEMI (non-ST elevated myocardial infarction): (3) Thrombocytopenia: (4) ESRD (end stage renal disease): (5) Staphylococcus aureus bacteremia: Plan Patient's VJ ruled out infective endocarditis. Patient tolerated procedure well. At this time, cardiology will sign off of this patient. As always, if our assistance is needed in the future, please consult us. Thank you for allowing us to take care of this very pleasant patient. PDMP PDMP Reviewed: Not Reviewed Attestations 2 Medical Necessity Statement*: Deferred to primary. Coding Level of Care Code Acute Code for g Fwd Diagnoses Other congestive heart failure I50.9 Heart failure type: other NSTEMI (non-ST elevated myocardial infarction) I21.4 Thrombocytopenia D69.6 ESRD (end stage renal disease) N18.6 Staphylococcus aureus bacteremia R78.81; B95.61
--- NOTE | 2024-12-16 15:51 | P.PN_ITS ---
Subjective 2 Subjective: - Patient was examined this morning - He is alert to person, to place, he re cognizes me at the doctor, but not to time - He is does withdraw from pain, does lo calize pain, does track, pupils are equal round react to light he is able to see me - Has bilateral upper extremity and lowe r extremity movement Vitals/I&O/Wt Last Vital Signs Temp 97.9 F 12/16/24 00:00 Pulse 68 12/16/24 14:00 Resp 20 H 12/16/24 14:00 BP 127/64 12/16/24 14:00 Pulse Ox 95 12/16/24 14:00 O2 Del Method Nasal Cannula 12/15/24 08:12 O2 Flow Rate 2 12/15/24 08:12 12/16/24 12/16/24 12/16/24 06:59 14:59 22:59 Intake Total 0 / 450 Balance 0 / -2350 Weight last 48 hrs Weight 111.6 kg Weight 114.3 kg Weight 115.212 kg Weight 115.4 kg Physical Exam 2 Const: COMMON NORMALS: no acute distress EXAM LIMITATIONS: altered mental status ORIENTATION/CONSCIOUSNESS: Yes awake, Yes oriented to person, Yes oriented to place and Yes confused; not oriented to time Eye: COMMON NORMALS: Equal, round and reactive pupils present PUPIL: Yes Equal, round and reactive pupils present Resp: COMMON NORMALS: normal respiratory effort, No retractions, No use of accessory muscles and clear to auscultation bilaterally AUSCULTATION: clear to auscultation bilaterally Cardio: COMMON NORMALS: regular rate, regular rhythm, S1 normal heart sound present and S2 normal heart sound present RATE: regular rate RHYTHM: r egular rhythm HEART SOUNDS: S1 normal heart sound present and S2 normal heart sound present GI: COMMON NORMALS: Normal to inspection, nondistended, normoactive bowel sounds present and non-tender Extremity: COMMON NORMALS: no pedal edema Neuro: SENSORIUM/ORIENTATION: Yes oriented to person, Yes oriented to place and No oriented to time Data 12/16/24 04:47 12/16/24 04:47 Micro: Microbiology 12/12/24 09:59 Blood Culture - Preliminary Blood Staphylococcus aureus 12/14/24 05:09 Blood Culture - Preliminary Blood Staphylococcus aureus A&P Assessment and plan (1) Encephalopathy acute: (2) NSTEMI (non-ST elevated myocardial infarction): (3) Uremia: (4) Hyponatremia: (5) Polypharmacy: (6) Increased anion gap metabolic acidosis: (7) Hyperglycemia: (8) Diabetes mellitus, type II: (9) ESRD (end stage renal disease): (10) Hypertension: (11) Congestive heart failure: (12) History of coronary artery stent placement: (13) Thrombocytopenia: (14) Intractable back pain: (15) Staphylococcus aureus bacteremia: (16) Ischemic cerebrovascular accident (CVA) due to global hypoperfusion with watershed infarction: Plan Acute persistent encephalopathy - Metabolic versus toxic encephalopathy - Currently alert to person, to place, not to time -Can follow some commands - Easily falls back asleep Etiology? -Potentially withdrawal from narcotics, - Resume hydrocodone 10 mg every 6 hours scheduled - Potentially related to Staph aureus bacteremia - Potentially related to acute CVA due to global hyper perfusion with watershed stroke - Repeat head CT no acute findings - He did have complaints of blindness at 1 point, doing visual field testing is difficult, with his encephalopathy, and evidence of cat scratch - Concerns with cat scratch disease with encephalitis and neuroretinitis Cat scratch disease concerns -Multiple superficial cat scratches seen on both arms - Potentially cat scratch disease - Bartonella titers ordered - Will consider lumbar puncture based on clinical progress - With persistent encephalopathy, concerns for encephalitis associate with cat scratch disease - With complaints of blindness concern for neuroretinitis - Will start patient on doxycycline will consider rifampin - Will consider IV steroids Staphylococcus aureus bacteremia -procal 5.92, crp 251.7 - Seen in 4 out of 4 blood cultures - Back in 2020, he also had Staph aureus bacteremia, source was subclavian port which was removed - Now with recurrent Staphylococcus aureus bacteremia - He does complain of back pain - CT cervical/lumbar/thoracic spine no evidence discitis, vertebral osteomyelitis, abscess -Transesophageal echocardiogram no valvular vegetations - He does have a right arm dialysis fistula in place with 1 ultrasound the dialysis fistula, -CT right [place] [id number] IMPRESSION: 1. There is diffuse edema of the deltoid concerning for myositis.. A collection of gas bubbles and low-attenuation material suggests developing abscess along the deep margin of the deltoid. 2. Patent right upper extremity arteriovenous fistula. There is a 1.9 cm low-attenuation collection posterior to the proximal aspect of the venous outflow which could be a small seroma or hematoma. No regional inflammatory change. - No distinct abscess collection -Staph aureus bacteremia likely from multiple cat scratches on bilateral arms - Plan - Currently on cefazolin -Infectious disease consulted - Does have a history of MRSA Issues with the right arm dialysis fistula site - CTA Right subclavian artery: No occlusion or significant stenosis. Axillary artery: No occlusion or significant stenosis. Brachial artery: No occlusion or significant stenosis. Radial artery: No occlusion or significant stenosis. Ulnar artery: There is a patent arteriovenous fistula between the ulnar artery and cephalic vein. - General Surgery consulted for temporary dialysis catheter placement Acute CVA due to global hypoperfusion with watershed stroke Head CT no acute findings CTA head and neck CT/CT angio headneck* [id number] IMPRESSION: 1. No significant cervical ICA stenosis. 2. Moderate to advanced intracranial atheromatous disease with segmental narrowing appears advanced for patient this age. 3. Dense cavernous carotid calcification. 4. Moderate to severe segmental stenosis involving the [employer] territories bilaterally RIGHT greater than LEFT. Basilar artery remains patent. Distal vessels appear patent MRI brain MR/MR head wo con* [id number] IMPRESSION: 1. Very small acute lacunar infarcts in the LEFT ortega radiata. These may be along the watershed distribution between arterial territories. No hemorrhage. 2. Otherwise mild cerebral and cerebellar volume loss and atrophy - Etiology likely secondary to hypotension episode in the emergency room plan: -Repeat head CT within normal limits -neurochecks -nih stroke scale -aspirin -will hold on plavix given thromboytopenia, Plavix -permissive hypertension - Will monitor closely - Avoid hypotensive episodes Bilateral eye blindness - Etiology unclear -Symptomatology resolved last night -Assessment difficult - Reach out to ophthalmology, has a history of glaucoma, started eyedrops for possible - Will have ophthalmology, and do a dilated eye exam, for examination of cat scratch disease Acute encephalopathy, likely metabolic - Currently alert to person, not place, not to time -Patient can follow simple commands - Waxing and waning mentation -Etiology - Multifactorial -Uremic encephalopathy, BUN 107 -Hyponatremia serum sodium 127 -Possibly polypharmacy from his pain medications -Possible side effect of Decadron -Staph aureus bacteremia, sepsis - Watershed stroke Plan - Neurochecks -NIH stroke scale - Nephrology consulted for dialysis 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, reportedly GIST per pathology Uremic encephalopathy, resolved - Nephrology consulted Acute hyponatremia, resolved - Nephrology consulted for dialysis Increased anion gap metabolic acidosis, resolved - Ketones negative - Plans on dialysis Type 2 diabetes mellitus, A1c 7.8 - Lantus 10 units daily - Low-dose sliding scale Hyperbilirubinemia, bilirubin 7.0, direct hyperbilirubinemia AST within normal, ALT within normal limits, alk phos within normal limits, will monitor Ultrasound abdomen US/US abdomen complete* [id number] IMPRESSION: Technically difficult study due to bowel gas and body habitus. 1. Hepatomegaly. Nodular capsular contour suspicious for cirrhosis. 2. No ascites. 3. Tiny calculus or sludge ball in the gallbladder. No gallbladder wall thickening or pericholecystic fluid seen today. 4. Normal common bile duct measuring 5 mm. 5. No hydronephrosis in the RIGHT kidney. 6. Small simple cyst RIGHT kidney - Could be Gilbert's disease - Cholestatic jaundice from sepsis, antibiotics - Monitor liver function, alk phos, bilirubin - NSTEMI - No chest pain complaints - T wave inversions in anterior leads - Cardiac echo CONCLUSIONS Technically limited quality echocardiogram because of poor ultrasonic windows. LV systolic function is mildly reduced with EF of 45-50%. RV hypokinesis noted Trace mitral regurgitation Mild tricuspid regurgitation Trace pulmonic regurgitation. Small pericardial effusion IVC appears to be dilated - Heparin drip completed 48 hours - Recent immobility with back pain venous ultrasound, CT angiogram of the chest negative for DVT Systolic CHF exacerbation, fluid overload, BNP over 70,000 - Continue inpatient dialysis Intractable back pain - Possibly withdrawing from his home hydrocodone, resume hydrocodone 10 every 6 hours scheduled Thrombocytopenia, etiology unclear, peripheral smear Full code Heparin for DVT prophylaxis Patient is Scientologist does not accept blood products PDMP PDMP Reviewed: Last Reviewed 12/13/24 17:30 by José Luis Gonzalez MD Attestations 2 Medical Necessity Statement*: Patient requires hospitalization for persistent encephalopathy, Staph aureus bacteremia, concern for cat scratch disease Diagnoses Encephalopathy acute G93.40 NSTEMI (non-ST elevated myocardial infarction) I21.4 Uremia N19 Hyponatremia E87.1 Polypharmacy Z79.899 Increased anion gap metabolic acidosis E87.29 Hyperglycemia R73.9 Type 2 diabetes mellitus with chronic kidney disease on chronic dialysis, unspecified whether detention insulin use E11.22; N18.6; Z99.2 Diabetes mellitus continuous churn buttermaker insulin use: unspecified continuous churn buttermaker insulin use status Diabetes mellitus complication status: with kidney complications Diabetes mellitus complication detail: with chronic kidney disease Chronic kidney disease stage: on chronic dialysis ESRD (end stage renal disease) N18.6 Essential hypertension I10 Hypertension type: essential hypertension Other congestive heart failure I50.9 Heart failure type: other History of coronary artery stent placement Z95.5 Thrombocytopenia D69.6 Intractable back pain M54.9 Staphylococcus aureus bacteremia R78.81; B95.61 Ischemic cerebrovascular accident (CVA) due to global hypoperfusion with watershed infarction I63.9
[2024-12-16 17:20] LABS: Glucose Point of Care 194 mg/dL (70-110)
[2024-12-16] MEDS: dexamethasone 10 mg/mL INJ 6 MG IVP (17:26)
[2024-12-16] MEDS: ceFAZolin 1,000 mg SDV 1000 MG IVP (17:27)
[2024-12-16] MEDS: atorvastatin 40 mg Tablet PO (21:29)
[2024-12-16] MEDS: latanoprost 0.005% Op Soln 2.5 mL Btl 1 DROP EYE-BOTH (21:33)
--- NOTE | 2024-12-16 21:53 | PC.NURSE ---
right groin hemodialysis site.
[2024-12-16 22:36] LABS: Glucose Point of Care 192 mg/dL (70-110)
[2024-12-17] VITALS (50 sets, daily range): BP systolic 107–186; BP diastolic 59–111; PULSE 67–98; RESP 18–30; TEMP 36.7–37.7; O2SAT 85–96
[2024-12-17] MEDS: doxycycline 100 MG in sodium chloride 0.9% (plus) 100 ML IV ×2 (00:37→13:33)
[2024-12-17 04:08] LABS: Basophils % 0.2 %; Hematocrit 37.3 % (37-53); Lymphocytes # 0.5 10^3/uL (0.8-4.8); Lymphocytes % 4.3 %; Mean Corpuscular HGB Conc 33.2 g/dL (30-55); Mean Corpuscular Hemoglobin 30.3 pg (27-33); Mean Corpuscular Volume 91.2 fl (82-101); Mean Platelet Volume 11.1 fL (7.4-10.4); Monocytes # 0.3 10^3/uL (0.2-0.9); Monocytes % 2.9 %; Neutrophils # 9.96 10^3/uL (1.8-7.7); Neutrophils % 90.3 %; Nucleated Red Blood Cells % 0 %; Platelet Count 138 10^3/cmm (157-399); Red Blood Count 4.09 10^6/uL (3.85-5.65); Red Cell Distribution Width 15.2 % (12.1-15.1); White Blood Count 11.02 10^3/uL (3.29-11.43)
[2024-12-17 04:35] LABS: Alanine Aminotransferase 28 U/L (0-41); Albumin Level 2.4 g/dL (3.5-5.2); Alkaline Phosphatase 124 U/L (40-130); Anion Gap 26.1 (5-19); Aspartate Amino Transferase 79 U/L (0-40); Blood Urea Nitrogen 78 mg/dL (6-20); Calcium 8.4 mg/dL (8.5-10.5); Carbon Dioxide 21 mmol/L (22-29); Chloride 93 mmol/L (98-107); Creatinine Clr Calc Pharmacy 16.1035; Globulin 4.5 g/dL (1.3-4.6); Glucose 246 mg/dL (65-115); Osmolality Calculated 310 mOsm/kg (285-295); Potassium 6.1 mmol/L (3.5-5.1); Sodium 134 mmol/L (136-145); Total Protein 6.9 g/dL (6.6-8.7)
[2024-12-17 05:06] LABS: Total Bilirubin 7.7 mg/dL (0.15-1.2)
--- NOTE | 2024-12-17 05:29 | P.PN_ITS ---
Subjective 2 Subjective: no new c/o Medications: Reviewed: Yes Vitals/I&O/Wt Last Vital Signs Temp 98.6 F 12/17/24 00:00 Pulse 89 12/17/24 02:30 Resp 24 H 12/17/24 02:30 BP 180/80 12/17/24 02:30 Pulse Ox 95 12/17/24 02:00 O2 Del Method Room Air 12/17/24 01:30 O2 Flow Rate 2 12/15/24 08:12 12/16/24 12/16/24 12/17/24 14:59 22:59 06:59 Intake Total 120 / 120 120 / 240 Output Total 0 / 0 Balance 120 / 120 120 / 240 Weight last 48 hrs Weight 112.627 kg Weight 111.6 kg Weight 114.3 kg Weight 115.212 kg Physical Exam 2 Narrative: GEN: nad, lethargic HEAD: normocephalic, atraumatic EYES: eyes are closed HEENT: mmm NECK: no jvd CV: rrr LUNGS: diminished BS ABD: soft, nt, nd EXT: NO LE edema NEURO: lethargic SKIN: no rash Data 12/17/24 03:51 12/17/24 03:51 Micro: Microbiology 12/17/24 03:51 Blood Culture - Preliminary Blood SPECIMEN COLLECTED 12/17/24 03:53 Blood Culture - Preliminary Blood SPECIMEN COLLECTED 12/14/24 05:09 Blood Culture - Preliminary Blood Staphylococcus aureus 12/12/24 09:59 Blood Culture - Preliminary Blood Staphylococcus aureus A&P Assessment and plan (1) ESRD (end stage renal disease): Plan 1. End-stage renal disease- he is on maintenance HD on a MWF schedule. he had hd on 12/12 and 12/13 due to encephalopathy. he received IV contrast and had HD yesterday Next HD today s/p temp HD catheter due to AVF malfunction 2. History of hypertension- resume home meds 3. Anemia in ckd- Hemoglobin at goal 4. Intractable back pain- due to lumbar radiculopathy , 5. History of coronary artery disease 6. Encephalopathy- likely metabolic 7. RUE CTA concerning for myositis and ? abscess, general surgery following Pt evaluated using audiovisual cart. Time spent 20 min PDMP PDMP Reviewed: Not Reviewed Attestations 2 Medical Necessity Statement*: per katalina Coding Level of Care Code Acute Code for [facility] Fwd Diagnoses ESRD (end stage renal disease) N18.6
[2024-12-17] MEDS: insulin glargine 100 units/1 mL 10 UNIT SUBCUT (05:41)
[2024-12-17] MEDS: heparin 5,000 unit/mL INJ 1 mL 5000 UNIT SUBCUT (05:41)
--- NOTE | 2024-12-17 07:40 | FL_ITS ---
WS: [id number] LUMBAR PUNCTURE UNDER FLUOROSCOPY: OBTAIN CSF FOR ANALYSIS HISTORY: ams COMPARISON: None available. FLUOROSCOPY TIME: 3min [id number] # of spot films: 1 Procedure, complications, and risk and benefits explained to the patient. Consent was obtained. Recent laboratory work and medication are reviewed prior to procedure. Medically necessary to proceed with LP. Skin over the lumbar is cleansed with ChloraPrep and anesthetized with 1% buffered lidocaine. Access into the thecal sac was never achieved. No CSF was obtained. 2 levels were attempted. Access was obstructed by osteophytes. Venous blood was noted at both sites. This blood did not clear to suggest this was CSF. Do not believe we were ever within the thecal sac. LP terminated after the second failed attempt. FL/FL guided lumbarpunc dx* [id number] IMPRESSION: Unable to achieve access into the subarachnoid space for CSF.
[2024-12-17 08:08] LABS: Glucose Point of Care 240 mg/dL (70-110)
[2024-12-17 08:10] LABS: Gamma Glutamyl Transferase 148 U/L (8-61); Lipase 35 U/L (13-60)
[2024-12-17 08:13] LABS: Total Bilirubin 7.7 mg/dL (0.15-1.2)
[2024-12-17] MEDS: citalopram 20 mg Tablet 10 MG PO (09:07)
[2024-12-17] MEDS: insulin lispro 100 unit/1 mL SUBCUT ×3 (09:07→17:51)
[2024-12-17] MEDS: aspirin 81 mg EC Tablet PO (09:07)
[2024-12-17] MEDS: brimonidine 0.2% Op Soln 5 mL Btl 1 DROP EYE-BOTH ×3 (09:08→20:13)
[2024-12-17] MEDS: dorzolamide/timolol Op Soln 10 mL Btl 1 DROP EYE-BOTH ×2 (09:08→17:51)
--- NOTE | 2024-12-17 09:09 | PC.SLP ---
Could not obtain arousal state necessary for treatment
[2024-12-17] MEDS: LORazepam 1 MG/0.5 ML injection IVP ×2 (11:20→12:10)
--- NOTE | 2024-12-17 11:21 | P.PN_ITS ---
Subjective 2 Subjective: ID progress note continues to be encephalopathic per report today Blood cx reported psootive from 12/14 additionally leukocytosis improving today platelet count improved at 138 T. Bili increasing at 7.7 today without other signs of hemolysis Medications: Reviewed: Yes Vitals/I&O/Wt Last Vital Signs Temp 98.6 F 12/17/24 00:00 Pulse 84 12/17/24 06:00 Resp 22 H 12/17/24 06:00 BP 160/74 12/17/24 06:00 Pulse Ox 91 12/17/24 06:00 O2 Del Method Room Air 12/17/24 06:00 O2 Flow Rate 2 12/15/24 08:12 12/16/24 12/17/24 12/17/24 22:59 06:59 14:59 Intake Total 120 / 120 120 / 240 Output Total 0 / 0 Balance 120 / 120 120 / 240 Weight last 48 hrs Weight 112.627 kg Weight 111.6 kg Weight 114.3 kg Physical Exam 2 Narrative: patient not seen today care plan discussed with hospitalist Data 12/17/24 03:51 12/17/24 03:51 Micro: Microbiology 12/17/24 03:51 Blood Culture - Preliminary Blood SPECIMEN COLLECTED 12/17/24 03:53 Blood Culture - Preliminary Blood SPECIMEN COLLECTED 12/14/24 05:09 Blood Culture - Preliminary Blood Staphylococcus aureus 12/12/24 09:59 Blood Culture - Preliminary Blood Staphylococcus aureus A&P Assessment and plan (1) Staphylococcus aureus bacteremia: 59-year-old male with ESRD on hemodialysis via right arm AV fistula admitted to the hospital with altered mental status and found to have Staph aureus bacteremia. Blood culture positive from December 12, 2024. Subsequent blood culture thus far is negative. Review of sensitivity reveals this to be MSSA Discontinue piperacillin/tazobactam and vancomycin Changed treatment to organism directed therapy with cefazolin 1 g IV every 24 hours in keeping with his impaired kidney function. Source of infection may be developing myositis versus abscess of the right deltoid as noted on the CTA of the extremities. Uncertain if this may be the primary problem or represent a secondary embolization. On examination there is a scab over the right deltoid, patient refused, telehealth if he had any injury over your site. He blanco owns several cats and statess that he may have scratched him at some point. Denies any recent intramuscular injections. No known history of IV drug use. Recently had presented with intractable back pain. CT of the lumbar spine without signs of osteomyelitis, discitis or epidural abscess. VJ taken today without any vegetations Right arm fistula site without any discernable abscess, small collection likely to represent hematoma vs seroma. No noted thrombosis. Dialysis fistula has reportedly not been accessible during hospital course, patient currently has a right femoral temp HD line. Also has right IJ central line placed during this admission. (2) Myositis: as above may be secondary embolization vs primary source does not appear to have any drainable collection small scab noted over area of involvement uncertain if there has been recent trauma at this site (3) Stroke: management per primary (4) ESRD (end stage renal disease): on maintainence HD , typically right arm fistula Plan 12/17/24: care plan discussed iw hospitalist. Patient is contuning to be encephalopathic. Blood cx positive from 12/14. Leukocytosis improving, platelets improved. T bili rising up at 7.7 without signs of hemolysis. AST/ALT/ALP without significant elevation. US abdomen without any biliary dilattaion or GB changes. ? gilbert syndrome. Changed to cefazolin from zosyn/vanc on 12/15/24. continue same for now. Overall suspect staph aureus bacteremia with encephalopthay to be the cause of persisting symptoms. CT CAP on admission on 12/12 without any acute chest or abdominal sources of infection. Bartonella, tick panel remains pending. Started on presumptive doxycycline which can continue PDMP PDMP Reviewed: Not Reviewed Attestations 2 Medical Necessity Statement*: per admitting Coding Level of Care Code Acute Code for [facility] Fwd Diagnoses Staphylococcus aureus bacteremia R78.81; B95.61 Myositis M60.9 Stroke I63.9 ESRD (end stage renal disease) N18.6
--- NOTE | 2024-12-17 11:36 | PC.OT ---
HOLD OT TREATMENT DUE TO LUMBAR PUNCTURE SCHEDULED TODAY AND DIALYSIS AFTER; WILL ATTEMPT AGAIN AT LATER TIME.
--- NOTE | 2024-12-17 13:30 | PC.SOCIAL ---
IMM Updated Updated pt on IMM. No questions voiced. Provided pt a copy. Initialed, dated, & timed copy in chart.
[2024-12-17 13:31] LABS: Glucose Point of Care 243 mg/dL (70-110)
[2024-12-17] MEDS: pantoprazole 40 mg SDV IVP (13:37)
--- NOTE | 2024-12-17 14:30 | P.PN_ITS ---
Subjective 2 Subjective: - Patient was examined this morning, he sitting up in a chair - He is alert to person, to place, not t o time, he can follow commands, he recognizes me as they are his physician, moves bilateral upper and lower extremities, pupils equal round react to light is able to track me - However during our conversation he con tinues to have episodes of encephalopathy, and confusion, reports diffuse musculoskeletal pain - Discussed his Staph aureus bacteremia, concerns for cat scratch disease, discussed continuing on broad-spectrum antibiotic therapy, - However he continues to become glossed over and the information that I am providing to him, is not exactly clear he understands what is going on has been afebrile, normotensive, his hyperbilirubinemia is increasing, indirect, but no right upper quadrant pain to tenderness - Denies a history of alcoholism - Due to persistent encephalopathy, with concern for/acute disease, concern for encephalitis, ordered a lumbar puncture - Seen patient is a lumbar puncture suit e, he is more alert and awake, can follow commands, - [facility] - Unfortunately lumbar puncture could no t be performed due to osteoarthritis - Patient did have a dilated eye exam wi th the help of ophthalmology - Supervisor Brine did a dilated eye exam , no evidence of papilledema, no evidence of sign during dilated eye exam/retinal exam Vitals/I&O/Wt Last Vital Signs Temp 98.6 F 12/17/24 00:00 Pulse 74 12/17/24 13:45 Resp 22 H 12/17/24 06:00 BP 160/74 12/17/24 06:00 Pulse Ox 85 L 12/17/24 13:45 O2 Del Method Room Air 12/17/24 13:45 O2 Flow Rate 2 12/15/24 08:12 12/16/24 12/17/24 12/17/24 22:59 06:59 14:59 Intake Total 120 / 120 120 / 240 Output Total 0 / 0 Balance 120 / 120 120 / 240 Weight last 48 hrs Weight 112.627 kg Weight 111.6 kg Weight 114.3 kg Physical Exam 2 Const: COMMON NORMALS: no acute distress ORIENTATION/CONSCIOUSNESS: Yes awake, Yes oriented to person and Yes oriented to place; not oriented to time OTHER: Continues to have episodes of global encephalopathy HENMT: COMMON NORMALS: normocephalic HEAD & SCALP: normocephalic Eye: COMMON NORMALS: Equal, round and reactive pupils present PUPIL: Yes Equal, round and reactive pupils present Resp: COMMON NORMALS: normal respiratory effort, No retractions, No use of accessory muscles and clear to auscultation bilaterally AUSCULTATION: clear to auscultation bilaterally Cardio: COMMON NORMALS: regular rate, regular rhythm, S1 normal heart sound present and S2 normal heart sound present RATE: regular rate RHYTHM: r egular rhythm HEART SOUNDS: S1 normal heart sound present and S2 normal heart sound present GI: COMMON NORMALS: Normal to inspection, nondistended, normoactive bowel sounds present and non-tender Extremity: COMMON NORMALS: no pedal edema Neuro: SENSORIUM/ORIENTATION: Yes oriented to person, Yes oriented to place and No oriented to time Psych: COMMON NORMALS: mental status grossly normal Skin: NARRATIVE SKIN EXAM: Right arm dialysis fistula, flow heard over dialysis fistula Data 12/17/24 03:51 12/17/24 03:51 Micro: Microbiology 12/17/24 03:51 Blood Culture - Preliminary Blood SPECIMEN COLLECTED 12/17/24 03:53 Blood Culture - Preliminary Blood SPECIMEN COLLECTED 12/14/24 05:09 Blood Culture - Preliminary Blood Staphylococcus aureus 12/12/24 09:59 Blood Culture - Preliminary Blood Staphylococcus aureus A&P Assessment and plan (1) Encephalopathy acute: (2) NSTEMI (non-ST elevated myocardial infarction): (3) Uremia: (4) Hyponatremia: (5) Polypharmacy: (6) Increased anion gap metabolic acidosis: (7) Hyperglycemia: (8) Diabetes mellitus, type II: (9) ESRD (end stage renal disease): (10) Hypertension: (11) Congestive heart failure: (12) History of coronary artery stent placement: (13) Thrombocytopenia: (14) Intractable back pain: (15) Staphylococcus aureus bacteremia: (16) Ischemic cerebrovascular accident (CVA) due to global hypoperfusion with watershed infarction: Plan Acute persistent encephalopathy - Metabolic versus toxic encephalopathy - Currently alert to person, to place, not to time -Can follow some commands - Easily falls back asleep Etiology? -Potentially withdrawal from narcotics, - Resume hydrocodone 10 mg every 6 hours scheduled, this has not significantly improved his mentation - Potentially related to Staph aureus bacteremia, which is persistent - Potentially related to acute CVA due to global hyper perfusion with watershed stroke - Repeat head CT no acute findings - He did have complaints of blindness at 1 point, doing visual field testing is difficult, with his encephalopathy, and concern for cat scratch disease, - Concerns with cat scratch disease with encephalitis and neuroretinitis - Cannot do a lumbar puncture due to osteophytes - Dilated eye exam, no papilledema, no star sign Cat scratch disease concerns -Multiple superficial cat scratches seen on both arms - Potentially cat scratch disease - Bartonella titers ordered - Unable to achieve access into subarachnoid space for CSF, lumbar puncture - With persistent encephalopathy, concerns for encephalitis associate with cat scratch disease - With complaints of blindness concern for neuroretinitis, although dilated eye exam does not show any evidence of papilledema or star sign - Will start patient on doxycycline - Start IV steroids Staphylococcus aureus bacteremia -procal 5.92, crp 251.7 - Seen in 4 out of 4 blood cultures - Back in 2020, he also had Staph aureus bacteremia, source was subclavian port which was removed - Now with recurrent Staphylococcus aureus bacteremia - He does complain of back pain - CT cervical/lumbar/thoracic spine no evidence discitis, vertebral osteomyelitis, abscess -Transesophageal echocardiogram no valvular vegetations - He does have a right arm dialysis fistula in place with 1 ultrasound the dialysis fistula, -CT right arm with [place] [id number] IMPRESSION: 1. There is diffuse edema of the deltoid concerning for myositis.. A collection of gas bubbles and low-attenuation material suggests developing abscess along the deep margin of the deltoid. 2. Patent right upper extremity arteriovenous fistula. There is a 1.9 cm low-attenuation collection posterior to the proximal aspect of the venous outflow which could be a small seroma or hematoma. No regional inflammatory change. - No distinct abscess collection -Staph aureus bacteremia likely from multiple cat scratches on bilateral arms - Plan - Currently on cefazolin -Infectious disease consulted - Does have a history of MRSA Issues with the right arm dialysis fistula site - CTA Right subclavian artery: No occlusion or significant stenosis. Axillary artery: No occlusion or significant stenosis. Brachial artery: No occlusion or significant stenosis. Radial artery: No occlusion or significant stenosis. Ulnar artery: There is a patent arteriovenous fistula between the ulnar artery and cephalic vein. - General Surgery consulted for temporary dialysis catheter placement, placed - I had a detailed discussion with patient's dialysis nurse as outpatient, they have been having issues with his right arm dialysis fistula site, trouble with access, at outpatient dialysis and he was supposed to follow-up with vascular surgery as outpatient at some point Acute CVA due to global hypoperfusion with watershed stroke Head CT no acute findings CTA head and neck CT/CT angio headneck* [id number] IMPRESSION: 1. No significant cervical ICA stenosis. 2. Moderate to advanced intracranial atheromatous disease with segmental narrowing appears advanced for patient this age. 3. Dense cavernous carotid calcification. 4. Moderate to severe segmental stenosis involving the [employer] territories bilaterally RIGHT greater than LEFT. Basilar artery remains patent. Distal vessels appear patent MRI brain MR/MR head wo con* [id number] IMPRESSION: 1. Very small acute lacunar infarcts in the LEFT ortega radiata. These may be along the watershed distribution between arterial territories. No hemorrhage. 2. Otherwise mild cerebral and cerebellar volume loss and atrophy - Etiology likely secondary to hypotension episode in the emergency room plan: -Repeat head CT within normal limits -neurochecks -nih stroke scale -aspirin -will hold on plavix given thromboytopenia, Plavix -permissive hypertension - Will monitor closely - Avoid hypotensive episodes Bilateral eye blindness - Etiology unclear -Symptomatology resolved last night, currently resolved - Dilated eye exam, no papilledema, no star sign - Reach out to ophthalmology, has a history of glaucoma, started eyedrops for history of glaucoma Diffuse musculoskeletal aches and pain - Could be withdrawal from narcotics - Could be from sepsis, Staph aureus bacteremia - Monitor 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, reportedly GIST per pathology Uremic encephalopathy, resolved - Nephrology consulted Acute hyponatremia, resolved - Nephrology consulted for dialysis Increased anion gap metabolic acidosis, resolved - Ketones negative - Plans on dialysis Type 2 diabetes mellitus, A1c 7.8 - Lantus 10 units daily - Low-dose sliding scale Hyperbilirubinemia, bilirubin 7.0, direct hyperbilirubinemia AST within normal, ALT within normal limits, alk phos within normal limits, will monitor Ultrasound abdomen US/US abdomen complete* [id number] IMPRESSION: Technically difficult study due to bowel gas and body habitus. 1. Hepatomegaly. Nodular capsular contour suspicious for cirrhosis. 2. No ascites. 3. Tiny calculus or sludge ball in the gallbladder. No gallbladder wall thickening or pericholecystic fluid seen today. 4. Normal common bile duct measuring 5 mm. 5. No hydronephrosis in the RIGHT kidney. 6. Small simple cyst RIGHT kidney CT scan abdomen pelvis Liver: Hepatomegaly the liver span is 19 cm. No mass. Gallbladder and biliary ducts: Normal. No calcified stones. No ductal dilation. Pancreas: Normal. No ductal dilation. Spleen: Normal. No splenomegaly. Adrenal glands: Normal. No mass. Kidneys and ureters: Bilateral benign renal cysts right side the cyst measures 38 mm x 22 mm, Lower pole right kidney 14 mm x 22 mm The left kidney cyst measures 13 mm. These findings were present on prior examination and appears similar. No additional follow-up is recommended for these lesions. No hydronephrosis. Stomach and bowel: There are multiple diverticuli scattered throughout the sigmoid colon. . No obstruction. No mucosal thickening. Appendix: No evidence of appendicitis. Intraperitoneal space: Unremarkable. No free air. No significant fluid collection. Vasculature: Unremarkable. No abdominal aortic aneurysm. Lymph nodes: Unremarkable. No enlarged lymph nodes. Urinary bladder: Unremarkable as visualized. Reproductive: Unremarkable as visualized. Bones/joints: Lumbar spine osteoarthritis and levoscoliosis. No acute fracture. Soft tissues: Unremarkable. - Could be Gilbert's disease - Cholestatic jaundice from sepsis, antibiotics - Monitor liver function, alk phos, bilirubin - HIDA scan ordered NSTEMI - No chest pain complaints - T wave inversions in anterior leads - Cardiac echo CONCLUSIONS Technically limited quality echocardiogram because of poor ultrasonic windows. LV systolic function is mildly reduced with EF of 45-50%. RV hypokinesis noted Trace mitral regurgitation Mild tricuspid regurgitation Trace pulmonic regurgitation. Small pericardial effusion IVC appears to be dilated - Heparin drip completed 48 hours - Recent immobility with back pain venous ultrasound, CT angiogram of the chest negative for DVT Systolic CHF exacerbation, fluid overload, BNP over 70,000 - Continue inpatient dialysis Intractable back pain - Possibly withdrawing from his home hydrocodone, resume hydrocodone 10 every 6 hours scheduled Thrombocytopenia, etiology unclear, peripheral smear, improving Full code Heparin for DVT prophylaxis Patient is [facility] does not accept blood products PDMP PDMP Reviewed: Last Reviewed 12/13/24 17:30 by José Luis Gonzalez MD Attestations 2 Medical Necessity Statement*: Patient requires hospitalization for Staph aureus bacteremia, encephalopathy, concern for cat scratch disease Diagnoses Encephalopathy acute G93.40 NSTEMI (non-ST elevated myocardial infarction) I21.4 Uremia N19 Hyponatremia E87.1 Polypharmacy Z79.899 Increased anion gap metabolic acidosis E87.29 Hyperglycemia R73.9 Type 2 diabetes mellitus with chronic kidney disease on chronic dialysis, unspecified whether buttermaker continuous churn insulin use E11.22; N18.6; Z99.2 Diabetes mellitus buttermaker continuous churn insulin use: unspecified buttermaker continuous churn insulin use status Diabetes mellitus complication status: with kidney complications Diabetes mellitus complication detail: with chronic kidney disease Chronic kidney disease stage: on chronic dialysis ESRD (end stage renal disease) N18.6 Essential hypertension I10 Hypertension type: essential hypertension Other congestive heart failure I50.9 Heart failure type: other History of coronary artery stent placement Z95.5 Thrombocytopenia D69.6 Intractable back pain M54.9 Staphylococcus aureus bacteremia R78.81; B95.61 Ischemic cerebrovascular accident (CVA) due to global hypoperfusion with watershed infarction I63.9
[2024-12-17] MEDS: heparin, porcine 1,000 unit/mL INJ 10 mL 1000 UNIT IV (15:07)
[2024-12-17] MEDS: dexamethasone 10 mg/mL INJ 6 MG IVP (17:03)
[2024-12-17] MEDS: ceFAZolin 1,000 mg SDV 1000 MG IVP (17:50)
[2024-12-17] MEDS: HYDROcodone-acetaminophen 10-325 mg Tablet 1 TAB PO (17:51)
[2024-12-17 17:57] LABS: Glucose Point of Care 151 mg/dL (70-110)
--- NOTE | 2024-12-17 19:25 | PC.NURSE ---
Shift SUmmary: Went to radiology for lumbar puncture, but we were unable to obtain a specimen. Mental status largely unchanged. Patient's speech is more clear than yesterday, and patient appears slightly more alert. Still is oriented to self only, knows he is in [place] but not exact location. Received dialysis today, goal was to remove 2500mL but dialysis nurse was only able to remove 1100mL.
[2024-12-17] MEDS: atorvastatin 40 mg Tablet PO (20:12)
[2024-12-17] MEDS: latanoprost 0.005% Op Soln 2.5 mL Btl 1 DROP EYE-BOTH (20:14)
[2024-12-17 22:34] LABS: Glucose Point of Care 176 mg/dL (70-110)
[2024-12-18] VITALS (35 sets, daily range): BP systolic 110–183; BP diastolic 60–98; PULSE 59–93; RESP 13–38; TEMP 36.4–37.2; O2SAT 89–94
[2024-12-18] MEDS: doxycycline 100 MG in sodium chloride 0.9% (plus) 100 ML IV ×2 (02:08→11:48)
[2024-12-18 04:15] LABS: Basophils % 0.3 %; Hematocrit 35.4 % (37-53); Lymphocytes # 0.4 10^3/uL (0.8-4.8); Lymphocytes % 4.3 %; Mean Corpuscular HGB Conc 34.5 g/dL (30-55); Mean Corpuscular Volume 89.8 fl (82-101); Mean Platelet Volume 11.2 fL (7.4-10.4); Monocytes # 0.6 10^3/uL (0.2-0.9); Monocytes % 5.5 %; Neutrophils # 9.02 10^3/uL (1.8-7.7); Neutrophils % 88.2 %; Nucleated Red Blood Cells % 0 %; Platelet Count 177 10^3/cmm (157-399); Red Blood Count 3.94 10^6/uL (3.85-5.65); Red Cell Distribution Width 15.3 % (12.1-15.1); White Blood Count 10.22 10^3/uL (3.29-11.43)
[2024-12-18 04:32] LABS: Alanine Aminotransferase 23 U/L (0-41); Albumin Level 2.4 g/dL (3.5-5.2); Alkaline Phosphatase 130 U/L (40-130); Anion Gap 21.7 (5-19); Aspartate Amino Transferase 104 U/L (0-40); Blood Urea Nitrogen 67 mg/dL (6-20); Calcium 8.5 mg/dL (8.5-10.5); Carbon Dioxide 26 mmol/L (22-29); Chloride 94 mmol/L (98-107); Creatinine Clr Calc Pharmacy 17.7412; Globulin 4.6 g/dL (1.3-4.6); Glomerular Filtration Rate 10.1 mL/min (90-130); Glucose 233 mg/dL (65-115); Osmolality Calculated 309 mOsm/kg (285-295); Potassium 5.7 mmol/L (3.5-5.1); Sodium 136 mmol/L (136-145); Total Bilirubin 6.2 mg/dL (0.15-1.2)
[2024-12-18] MEDS: HYDROcodone-acetaminophen 10-325 mg Tablet 1 TAB PO ×3 (06:43→20:41)
[2024-12-18] MEDS: insulin glargine 100 units/1 mL 10 UNIT SUBCUT (06:44)
[2024-12-18 08:03] LABS: Glucose Point of Care 259 mg/dL (70-110)
--- NOTE | 2024-12-18 08:27 | P.PN_ITS ---
Subjective 2 Subjective: no new complaints Medications: Reviewed: Yes Vitals/I&O/Wt Last Vital Signs Temp 98.7 F 12/18/24 04:00 Pulse 80 12/18/24 07:00 Resp 16 12/18/24 07:00 BP 175/74 12/18/24 07:00 Pulse Ox 91 12/18/24 07:00 O2 Del Method Room Air 12/18/24 07:00 O2 Flow Rate 2 12/18/24 04:00 12/17/24 12/18/24 12/18/24 22:59 06:59 14:59 Intake Total 920 / 920 300 / 1220 Output Total 1627 / 1627 0 / 1627 Balance -707 / -707 300 / -407 Weight last 48 hrs Weight 111.402 kg Weight 112.264 kg Weight 112.627 kg Physical Exam 2 Narrative: GEN: nad, lethargic HEAD: normocephalic, atraumatic EYES: eyes are closed HEENT: mmm NECK: no jvd CV: rrr LUNGS: diminished BS ABD: soft, nt, nd EXT: NO LE edema NEURO: lethargic SKIN: no rash Data 12/18/24 03:56 12/18/24 03:56 Micro: Microbiology 12/17/24 03:51 Blood Culture - Preliminary Blood NEGATIVE TO DATE 12/17/24 03:53 Blood Culture - Preliminary Blood NEGATIVE TO DATE A&P Assessment and plan (1) ESRD (end stage renal disease): Plan 1. End-stage renal disease- he is on maintenance HD on a MWF schedule. he had hd on 12/12 and 12/13 due to encephalopathy. he received IV contrast and had HD yesterday HD done yesterday , K elevated --> will run HD today s/p temp HD catheter due to AVF malfunction 2. History of hypertension- resume home meds 3. Anemia in ckd- Hemoglobin at goal 4. Intractable back pain- due to lumbar radiculopathy , 5. History of coronary artery disease 6. Encephalopathy- likely metabolic 7. RUE CTA concerning for myositis and ? abscess, general surgery following Pt evaluated using audiovisual cart. Time spent 20 min PDMP PDMP Reviewed: Not Reviewed Attestations 2 Medical Necessity Statement*: per medicine Coding Level of Care Code Acute Code for Chg Fwd Diagnoses ESRD (end stage renal disease) N18.6
[2024-12-18] MEDS: citalopram 20 mg Tablet 10 MG PO (08:46)
[2024-12-18] MEDS: insulin lispro 100 unit/1 mL SUBCUT ×3 (08:46→21:22)
[2024-12-18] MEDS: aspirin 81 mg EC Tablet PO (08:46)
[2024-12-18] MEDS: brimonidine 0.2% Op Soln 5 mL Btl 1 DROP EYE-BOTH ×3 (08:48→21:37)
[2024-12-18] MEDS: dorzolamide/timolol Op Soln 10 mL Btl 1 DROP EYE-BOTH ×2 (08:48→21:36)
[2024-12-18 11:40] LABS: Glucose Point of Care 262 mg/dL (70-110)
[2024-12-18] MEDS: pantoprazole 40 mg SDV IVP (11:40)
--- NOTE | 2024-12-18 14:01 | P.PN_ITS ---
Subjective 2 Subjective: Patient was seen this morning, he is much more alert awake, he is sitting up in a chair, he is alert to person, to place, not to time he recognizes me and the physician, he tells me that he wants to eat more, does report diffuse musculoskeletal aches and pain, does report back pain Vitals/I&O/Wt Last Vital Signs Temp 98.7 F 12/18/24 04:00 Pulse 63 12/18/24 13:00 Resp 23 H 12/18/24 13:00 BP 172/77 12/18/24 13:00 Pulse Ox 93 12/18/24 10:00 O2 Del Method Room Air 12/18/24 09:21 O2 Flow Rate 2 12/18/24 04:00 12/17/24 12/18/24 12/18/24 22:59 06:59 14:59 Intake Total 920 / 920 300 / 1220 200 / 200 Output Total 1627 / 1627 0 / 1627 Balance -707 / -707 300 / -407 200 / 200 Weight last 48 hrs Weight 111.402 kg Weight 112.264 kg Weight 112.627 kg Physical Exam 2 Const: COMMON NORMALS: no acute distress Resp: COMMON NORMALS: normal respiratory effort, No retractions, No use of accessory muscles and clear to auscultation bilaterally AUSCULTATION: clear to auscultation bilaterally Cardio: COMMON NORMALS: regular rate, regular rhythm, S1 normal heart sound present and S2 normal heart sound present RATE: regular rate RHYTHM: r egular rhythm HEART SOUNDS: S1 normal heart sound present and S2 normal heart sound present GI: COMMON NORMALS: Normal to inspection, nondistended, normoactive bowel sounds present and non-tender Extremity: COMMON NORMALS: no pedal edema Psych: COMMON NORMALS: mental status grossly normal Data 12/18/24 03:56 12/18/24 03:56 Micro: Microbiology 12/12/24 09:59 Blood Culture - Final Blood Staphylococcus aureus 12/14/24 05:09 Blood Culture - Final Blood Staphylococcus aureus 12/17/24 03:51 Blood Culture - Preliminary Blood NEGATIVE TO DATE 12/17/24 03:53 Blood Culture - Preliminary Blood NEGATIVE TO DATE A&P Assessment and plan (1) Encephalopathy acute: (2) NSTEMI (non-ST elevated myocardial infarction): (3) Uremia: (4) Hyponatremia: (5) Polypharmacy: (6) Increased anion gap metabolic acidosis: (7) Hyperglycemia: (8) Diabetes mellitus, type II: (9) ESRD (end stage renal disease): (10) Hypertension: (11) Congestive heart failure: (12) History of coronary artery stent placement: (13) Thrombocytopenia: (14) Intractable back pain: (15) Staphylococcus aureus bacteremia: (16) Ischemic cerebrovascular accident (CVA) due to global hypoperfusion with watershed infarction: Plan Physical deconditioning, poor oral nutrition - Will hold off on TPN or PPN given patient's hyperbilirubinemia concerns for liver dysfunction - Encourage p.o. intake - Ensure shakes twice daily Acute persistent encephalopathy -Overall clinically improving - Metabolic versus toxic encephalopathy - Currently alert to person, to place, not to time -Can follow some commands - Easily falls back asleep Etiology? -Potentially withdrawal from narcotics, - Resume hydrocodone 10 mg every 6 hours scheduled, this has not significantly improved his mentation - Potentially related to Staph aureus bacteremia, which is persistent - Potentially related to acute CVA due to global hyper perfusion with watershed stroke - Repeat head CT no acute findings, no acute findings - He did have complaints of blindness at 1 point, doing visual field testing is difficult, with his encephalopathy, and concern for cat scratch disease, - Concerns with cat scratch disease with encephalitis and neuroretinitis - Cannot do a lumbar puncture due to osteophytes - Dilated eye exam, no papilledema, no star sign Cat scratch disease concerns -Multiple superficial cat scratches seen on both arms - Potentially cat scratch disease - Bartonella titers ordered - Unable to achieve access into subarachnoid space for CSF, lumbar puncture - With persistent encephalopathy, concerns for encephalitis associate with cat scratch disease - With complaints of blindness concern for neuroretinitis, although dilated eye exam does not show any evidence of papilledema or star sign -Could not perform lumbar puncture - Will start patient on doxycycline - Start IV steroids Staphylococcus aureus bacteremia -procal 5.92, crp 251.7 - Seen in 4 out of 4 blood cultures - Back in 2020, he also had Staph aureus bacteremia, source was subclavian port which was removed - Now with recurrent Staphylococcus aureus bacteremia - He does complain of back pain - CT cervical/lumbar/thoracic spine no evidence discitis, vertebral osteomyelitis, abscess -Transesophageal echocardiogram no valvular vegetations - He does have a right arm dialysis fistula in place with 1 ultrasound the dialysis fistula, -CT right arm with [place] [id number] IMPRESSION: 1. There is diffuse edema of the deltoid concerning for myositis.. A collection of gas bubbles and low-attenuation material suggests developing abscess along the deep margin of the deltoid. 2. Patent right upper extremity arteriovenous fistula. There is a 1.9 cm low-attenuation collection posterior to the proximal aspect of the venous outflow which could be a small seroma or hematoma. No regional inflammatory change. - No distinct abscess collection -Staph aureus bacteremia likely from multiple cat scratches on bilateral arms - Plan -Repeat blood cultures so far negative - Currently on cefazolin -Infectious disease consulted - Does have a history of MRSA Issues with the right arm dialysis fistula site - CTA Right subclavian artery: No occlusion or significant stenosis. Axillary artery: No occlusion or significant stenosis. Brachial artery: No occlusion or significant stenosis. Radial artery: No occlusion or significant stenosis. Ulnar artery: There is a patent arteriovenous fistula between the ulnar artery and cephalic vein. - General Surgery consulted for temporary dialysis catheter placement, placed - I had a detailed discussion with patient's dialysis nurse as outpatient, they have been having issues with his right arm dialysis fistula site, trouble with access, at outpatient dialysis and he was supposed to follow-up with vascular surgery as outpatient at some point Acute CVA due to global hypoperfusion with watershed stroke Head CT no acute findings CTA head and neck CT/CT angio headneck* [id number] IMPRESSION: 1. No significant cervical ICA stenosis. 2. Moderate to advanced intracranial atheromatous disease with segmental narrowing appears advanced for patient this age. 3. Dense cavernous carotid calcification. 4. Moderate to severe segmental stenosis involving the PERSONAL INJURY ATTORNEY territories bilaterally RIGHT greater than LEFT. Basilar artery remains patent. Distal vessels appear patent MRI brain MR/MR head wo con* [id number] IMPRESSION: 1. Very small acute lacunar infarcts in the LEFT ortega radiata. These may be along the watershed distribution between arterial territories. No hemorrhage. 2. Otherwise mild cerebral and cerebellar volume loss and atrophy - Etiology likely secondary to hypotension episode in the emergency room plan: -Repeat head CT within normal limits -neurochecks -nih stroke scale -aspirin -will hold on plavix given thromboytopenia, Plavix -permissive hypertension - Will monitor closely - Avoid hypotensive episodes Bilateral eye blindness - Etiology unclear -Symptomatology resolved last night, currently resolved - Dilated eye exam, no papilledema, no star sign - Reach out to ophthalmology, has a history of glaucoma, started eyedrops for history of glaucoma Diffuse musculoskeletal aches and pain - Could be withdrawal from narcotics - Could be from sepsis, Staph aureus bacteremia - Monitor 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, 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[facility], reportedly GIST per pathology Uremic encephalopathy, resolved - Nephrology consulted Acute hyponatremia, resolved - Nephrology consulted for dialysis Increased anion gap metabolic acidosis, resolved - Ketones negative - Plans on dialysis Type 2 diabetes mellitus, A1c 7.8 - Lantus 10 units daily - Low-dose sliding scale Hyperbilirubinemia, bilirubin 7.0, direct hyperbilirubinemia AST within normal, ALT within normal limits, alk phos within normal limits, will monitor Ultrasound abdomen US/US abdomen complete* [id number] IMPRESSION: Technically difficult study due to bowel gas and body habitus. 1. Hepatomegaly. Nodular capsular contour suspicious for cirrhosis. 2. No ascites. 3. Tiny calculus or sludge ball in the gallbladder. No gallbladder wall thickening or pericholecystic fluid seen today. 4. Normal common bile duct measuring 5 mm. 5. No hydronephrosis in the RIGHT kidney. 6. Small simple cyst RIGHT kidney CT scan abdomen pelvis Liver: Hepatomegaly the liver span is 19 cm. No mass. Gallbladder and biliary ducts: Normal. No calcified stones. No ductal dilation. Pancreas: Normal. No ductal dilation. Spleen: Normal. No splenomegaly. Adrenal glands: Normal. No mass. Kidneys and ureters: Bilateral benign renal cysts right side the cyst measures 38 mm x 22 mm, Lower pole right kidney 14 mm x 22 mm The left kidney cyst measures 13 mm. These findings were present on prior examination and appears similar. No additional follow-up is recommended for these lesions. No hydronephrosis. Stomach and bowel: There are multiple diverticuli scattered throughout the sigmoid colon. . No obstruction. No mucosal thickening. Appendix: No evidence of appendicitis. Intraperitoneal space: Unremarkable. No free air. No significant fluid collection. Vasculature: Unremarkable. No abdominal aortic aneurysm. Lymph nodes: Unremarkable. No enlarged lymph nodes. Urinary bladder: Unremarkable as visualized. Reproductive: Unremarkable as visualized. Bones/joints: Lumbar spine osteoarthritis and levoscoliosis. No acute fracture. Soft tissues: Unremarkable. - Could be Gilbert's disease - Cholestatic jaundice from sepsis, antibiotics - Monitor liver function, alk phos, bilirubin - HIDA scan ordered NSTEMI - No chest pain complaints - T wave inversions in anterior leads - Cardiac echo CONCLUSIONS Technically limited quality echocardiogram because of poor ultrasonic windows. LV systolic function is mildly reduced with EF of 45-50%. RV hypokinesis noted Trace mitral regurgitation Mild tricuspid regurgitation Trace pulmonic regurgitation. Small pericardial effusion IVC appears to be dilated - Heparin drip completed 48 hours - Recent immobility with back pain venous ultrasound, CT angiogram of the chest negative for DVT Systolic CHF exacerbation, fluid overload, BNP over 70,000 - Continue inpatient dialysis Intractable back pain - Possibly withdrawing from his home hydrocodone, resume hydrocodone 10 every 6 hours scheduled Thrombocytopenia, etiology unclear, peripheral smear, improving Full code Heparin for DVT prophylaxis Patient is [employer] does not accept blood products Plan for today continue IV cefazolin, IV doxycycline, Decadron, monitor mentation, monitor electrolytes, moved to cardiac stepdown unit encourage p.o. intake PDMP PDMP Reviewed: Last Reviewed 12/13/24 17:30 by José Luis Gonzalez MD Attestations 2 Medical Necessity Statement*: Patient requires hospitalization for physical deconditioning, encephalopathy, Staph aureus bacteremia, cat scratch disease, hyperbilirubinemia Diagnoses Encephalopathy acute G93.40 NSTEMI (non-ST elevated myocardial infarction) I21.4 Uremia N19 Hyponatremia E87.1 Polypharmacy Z79.899 Increased anion gap metabolic acidosis E87.29 Hyperglycemia R73.9 Type 2 diabetes mellitus with chronic kidney disease on chronic dialysis, unspecified whether snf insulin use E11.22; N18.6; Z99.2 Chronic kidney disease stage: on chronic dialysis Diabetes mellitus complication detail: with chronic kidney disease Diabetes mellitus complication status: with kidney complications 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
[2024-12-18] MEDS: dexamethasone 10 mg/mL INJ 6 MG IVP (16:16)
--- NOTE | 2024-12-18 16:59 | PC.NURSE ---
off unit with dialysis
--- NOTE | 2024-12-18 17:46 | PC.NURSE ---
Patient to come to 112-1 after dialysis. Report received from SIMON Dunlap. Patient not on the floor at this time.
[2024-12-18] MEDS: heparin, porcine 1,000 unit/mL INJ 10 mL 1000 UNIT IV (18:55)
[2024-12-18] MEDS: atorvastatin 40 mg Tablet PO (20:41)
[2024-12-18] MEDS: ceFAZolin 1,000 mg SDV 1000 MG IVP (20:44)
[2024-12-18 20:48] LABS: Glucose Point of Care 226 mg/dL (70-110)
[2024-12-18] MEDS: latanoprost 0.005% Op Soln 2.5 mL Btl 1 DROP EYE-BOTH (21:39)
[2024-12-19] VITALS (15 sets, daily range): BP systolic 137–166; BP diastolic 61–79; PULSE 64–75; RESP 12–23; TEMP 36.3–37.1; O2SAT 91–96
[2024-12-19] MEDS: doxycycline 100 MG in sodium chloride 0.9% (plus) 100 ML IV ×2 (01:24→11:50)
[2024-12-19] MEDS: HYDROcodone-acetaminophen 10-325 mg Tablet 1 TAB PO ×7 (01:24→23:55)
[2024-12-19 04:35] LABS: Basophils % 0.2 %; Hematocrit 34.3 % (37-53); Lymphocytes # 0.4 10^3/uL (0.8-4.8); Lymphocytes % 3.6 %; Mean Corpuscular HGB Conc 32.9 g/dL (30-55); Mean Corpuscular Hemoglobin 30.7 pg (27-33); Mean Corpuscular Volume 93.2 fl (82-101); Mean Platelet Volume 11.8 fL (7.4-10.4); Monocytes # 0.6 10^3/uL (0.2-0.9); Monocytes % 5.7 %; Neutrophils % 89.5 %; Nucleated Red Blood Cells % 0 %; Platelet Count 183 10^3/cmm (157-399); Red Blood Count 3.68 10^6/uL (3.85-5.65); White Blood Count 9.83 10^3/uL (3.29-11.43)
[2024-12-19 04:57] LABS: Alanine Aminotransferase 32 U/L (0-41); Albumin Level 2.3 g/dL (3.5-5.2); Alkaline Phosphatase 208 U/L (40-130); Aspartate Amino Transferase 176 U/L (0-40); Blood Urea Nitrogen 56 mg/dL (6-20); Calcium 8.3 mg/dL (8.5-10.5); Carbon Dioxide 28 mmol/L (22-29); Chloride 91 mmol/L (98-107); Creatinine Clr Calc Pharmacy 20.6573; Globulin 4.5 g/dL (1.3-4.6); Glomerular Filtration Rate 11.9 mL/min (90-130); Glucose 274 mg/dL (65-115); Osmolality Calculated 305 mOsm/kg (285-295); Sodium 135 mmol/L (136-145); Total Bilirubin 4.3 mg/dL (0.15-1.2); Total Protein 6.8 g/dL (6.6-8.7)
[2024-12-19] MEDS: insulin glargine 100 units/1 mL 10 UNIT SUBCUT (06:13)
[2024-12-19 06:18] LABS: Glucose Point of Care 276 mg/dL (70-110)
[2024-12-19] MEDS: citalopram 20 mg Tablet 10 MG PO (07:43)
[2024-12-19] MEDS: aspirin 81 mg EC Tablet PO (07:44)
[2024-12-19] MEDS: dorzolamide/timolol Op Soln 10 mL Btl 1 DROP EYE-BOTH ×2 (07:44→17:32)
[2024-12-19] MEDS: insulin lispro 100 unit/1 mL SUBCUT ×3 (07:45→17:31)
[2024-12-19] MEDS: brimonidine 0.2% Op Soln 5 mL Btl 1 DROP EYE-BOTH ×3 (07:45→21:32)
--- NOTE | 2024-12-19 09:16 | P.PN_ITS ---
Subjective 2 Subjective: s/p HD yesterday Medications: Reviewed: Yes Vitals/I&O/Wt Last Vital Signs Temp 98.0 F 12/19/24 04:00 Pulse 75 12/19/24 04:00 Resp 23 H 12/19/24 04:00 BP 166/79 12/19/24 04:00 Pulse Ox 91 12/19/24 04:00 O2 Del Method Room Air 12/19/24 04:00 O2 Flow Rate 2 12/18/24 04:00 12/18/24 12/19/24 12/19/24 22:59 06:59 14:59 Intake Total 720 / 920 550 / 1470 Output Total 2519 / 2519 Balance -1799 / -1599 550 / -1049 Weight last 48 hrs Weight 113.126 kg Weight 114 kg Weight 111.402 kg Weight 112.264 kg Physical Exam 2 Narrative: GEN: nad, HEAD: normocephalic, atraumatic EYES: eyes are closed HEENT: mmm NECK: no jvd CV: rrr LUNGS: diminished BS ABD: soft, nt, nd EXT: NO LE edema NEURO: lethargic SKIN: no rash Data 12/20/24 04:40 12/20/24 04:40 Micro: Microbiology 12/14/24 05:00 Blood Culture - Final Blood Staphylococcus aureus 12/12/24 09:59 Blood Culture - Final Blood Staphylococcus aureus 12/14/24 05:09 Blood Culture - Final Blood Staphylococcus aureus A&P Assessment and plan (1) ESRD (end stage renal disease): Plan 1. End-stage renal disease- he is on maintenance HD on a MWF schedule. he had hd on 12/12 and 12/13 due to encephalopathy. he received IV contrast and had HD yesterday HD done yesterday due to hyperkalemia place on low K diet s/p temp HD catheter due to AVF malfunction 2. History of hypertension- resume home meds 3. Anemia in ckd- Hemoglobin at goal 4. Intractable back pain- due to lumbar radiculopathy , 5. History of coronary artery disease 6. Encephalopathy- likely metabolic 7. RUE CTA concerning for myositis and ? abscess, general surgery following Pt evaluated using audiovisual cart. Time spent 20 min PDMP PDMP Reviewed: Not Reviewed Attestations 2 Medical Necessity Statement*: per katalina Coding Level of Care Code Acute Code for Chg Fwd Diagnoses ESRD (end stage renal disease) N18.6
[2024-12-19 11:36] LABS: Glucose Point of Care 196 mg/dL (70-110)
[2024-12-19] MEDS: pantoprazole 40 mg SDV IVP (11:50)
--- NOTE | 2024-12-19 12:20 | PC.NURSE ---
Patient assisted to sit up on the side of the bed. Patient tolerated poorly.
--- NOTE | 2024-12-19 13:03 | PC.NURSE ---
Patient up to side of bed for ~30min. Patient was fed by 2 student nurses. Patient tolerated fair. Assisted patient back to bed x2 assist tolerated this fair as well.
--- NOTE | 2024-12-19 14:10 | P.PN_ITS ---
Subjective 2 Subjective: Patient was seen this morning he is alert to person, to place, somewhat to time he can follow commands he tells me that his appetite is improving, his back pain is improving, Vitals/I&O/Wt Last Vital Signs Temp 98.0 F 12/19/24 11:32 Pulse 71 12/19/24 11:32 Resp 12 12/19/24 11:32 BP 160/64 12/19/24 11:32 Pulse Ox 95 12/19/24 11:32 O2 Del Method Room Air 12/19/24 11:32 O2 Flow Rate 2 12/18/24 04:00 12/18/24 12/19/24 12/19/24 22:59 06:59 14:59 Intake Total 720 / 920 550 / 1470 700 / 700 Output Total 2519 / 2519 Balance -1799 / -1599 550 / -1049 700 / 700 Weight last 48 hrs Weight 113.126 kg Weight 114 kg Weight 111.402 kg Weight 112.264 kg Physical Exam 2 Const: COMMON NORMALS: no acute distress and patient oriented x3 Resp: COMMON NORMALS: normal respiratory effort, No retractions, No use of accessory muscles and clear to auscultation bilaterally AUSCULTATION: clear to auscultation bilaterally Cardio: COMMON NORMALS: regular rate, regular rhythm, S1 normal heart sound present and S2 normal heart sound present RATE: regular rate RHYTHM: r egular rhythm HEART SOUNDS: S1 normal heart sound present and S2 normal heart sound present GI: COMMON NORMALS: Normal to inspection, nondistended, normoactive bowel sounds present and non-tender Extremity: COMMON NORMALS: no pedal edema Neuro: COMMON NORMALS: patient oriented x3 Psych: COMMON NORMALS: mental status grossly normal Data 12/19/24 03:47 12/19/24 03:47 Micro: Microbiology 12/14/24 05:00 Blood Culture - Final Blood Staphylococcus aureus 12/12/24 09:59 Blood Culture - Final Blood Staphylococcus aureus 12/14/24 05:09 Blood Culture - Final Blood Staphylococcus aureus A&P Assessment and plan (1) Encephalopathy acute: (2) NSTEMI (non-ST elevated myocardial infarction): (3) Uremia: (4) Hyponatremia: (5) Polypharmacy: (6) Increased anion gap metabolic acidosis: (7) Hyperglycemia: (8) Diabetes mellitus, type II: (9) ESRD (end stage renal disease): (10) Hypertension: (11) Congestive heart failure: (12) History of coronary artery stent placement: (13) Thrombocytopenia: (14) Intractable back pain: (15) Staphylococcus aureus bacteremia: (16) Ischemic cerebrovascular accident (CVA) due to global hypoperfusion with watershed infarction: Plan Physical deconditioning, poor oral nutrition - Will hold off on TPN or PPN given patient's hyperbilirubinemia concerns for liver dysfunction - Encourage p.o. intake - Ensure shakes twice daily Acute persistent encephalopathy, resolving -Overall clinically improving - Metabolic versus toxic encephalopathy - Currently alert to person, to place, not to time -Can follow some commands - Easily falls back asleep Etiology? -Potentially withdrawal from narcotics, - Resume hydrocodone 10 mg every 6 hours scheduled, this has not significantly improved his mentation - Potentially related to Staph aureus bacteremia, which is persistent - Potentially related to acute CVA due to global hyper perfusion with watershed stroke - Repeat head CT no acute findings, no acute findings - He did have complaints of blindness at 1 point, doing visual field testing is difficult, with his encephalopathy, and concern for cat scratch disease, - Concerns with cat scratch disease with encephalitis and neuroretinitis - Cannot do a lumbar puncture due to osteophytes - Dilated eye exam, no papilledema, no star sign Cat scratch disease concerns -Multiple superficial cat scratches seen on both arms - Potentially cat scratch disease - Bartonella titers ordered - Unable to achieve access into subarachnoid space for CSF, lumbar puncture - With persistent encephalopathy, concerns for encephalitis associate with cat scratch disease - With complaints of blindness concern for neuroretinitis, although dilated eye exam does not show any evidence of papilledema or star sign -Could not perform lumbar puncture - Will start patient on doxycycline - Start IV steroids, stopped 12/19/2024 Staphylococcus aureus bacteremia -procal 5.92, crp 251.7 - Seen in 4 out of 4 blood cultures -Seen on blood culture 12/12/2024 -Seen on 12/14/2024 - Repeat blood cultures 12/17/2024, so far negative - Back in 2020, he also had Staph aureus bacteremia, source was subclavian port which was removed - Now with recurrent Staphylococcus aureus bacteremia - He does complain of back pain - CT cervical/lumbar/thoracic spine no evidence discitis, vertebral osteomyelitis, abscess -Transesophageal echocardiogram no valvular vegetations - He does have a right arm dialysis fistula in place with 1 ultrasound the dialysis fistula, -CT right arm with [place] [id number] IMPRESSION: 1. There is diffuse edema of the deltoid concerning for myositis.. A collection of gas bubbles and low-attenuation material suggests developing abscess along the deep margin of the deltoid. 2. Patent right upper extremity arteriovenous fistula. There is a 1.9 cm low-attenuation collection posterior to the proximal aspect of the venous outflow which could be a small seroma or hematoma. No regional inflammatory change. - No distinct abscess collection -Staph aureus bacteremia likely from multiple cat scratches on bilateral arms - Plan -Repeat blood cultures so far negative - Currently on cefazolin -Infectious disease consulted - Does have a history of MRSA - Blood work from 12/17/2024 so far negative - Once blood cultures are -48 hours, spoke with infectious disease, patient does not need a PICC line, can receive 6 weeks of IV cefazolin after dialysis, Friday, cefazolin 2 g after dialysis on dialysis days, for 6 weeks starting 12/17/2024 Issues with the right arm dialysis fistula site - CTA Right subclavian artery: No occlusion or significant stenosis. Axillary artery: No occlusion or significant stenosis. Brachial artery: No occlusion or significant stenosis. Radial artery: No occlusion or significant stenosis. Ulnar artery: There is a patent arteriovenous fistula between the ulnar artery and cephalic vein. - General Surgery consulted for temporary dialysis catheter placement, placed - I had a detailed discussion with patient's dialysis nurse as outpatient, they have been having issues with his right arm dialysis fistula site, trouble with access, at outpatient dialysis and he was supposed to follow-up with vascular surgery as outpatient at some point - Last accessed on Friday and it was working - Can follow-up with vascular surgery as outpatient - His left groin dialysis, temporary dialysis catheter site can be removed hopefully on Friday Myositis, continue cefazolin Acute CVA due to global hypoperfusion with watershed stroke Head CT no acute findings CTA head and neck CT/CT angio headneck* [id number] IMPRESSION: 1. No significant cervical ICA stenosis. 2. Moderate to advanced intracranial atheromatous disease with segmental narrowing appears advanced for patient this age. 3. Dense cavernous carotid calcification. 4. Moderate to severe segmental stenosis involving the LE[employer] territories bilaterally RIGHT greater than LEFT. Basilar artery remains patent. Distal vessels appear patent MRI brain MR/MR head wo con* [id number] IMPRESSION: 1. Very small acute lacunar infarcts in the LEFT ortega radiata. These may be along the watershed distribution between arterial territories. No hemorrhage. 2. Otherwise mild cerebral and cerebellar volume loss and atrophy - Etiology likely secondary to hypotension episode in the emergency room plan: -Repeat head CT within normal limits -neurochecks -nih stroke scale -aspirin -will hold on plavix given thromboytopenia, Plavix -permissive hypertension - Will monitor closely - Avoid hypotensive episodes Bilateral eye blindness - Etiology unclear -Symptomatology resolved last night, currently resolved - Dilated eye exam, no papilledema, no star sign - Reach out to ophthalmology, has a history of glaucoma, started eyedrops for history of glaucoma Diffuse musculoskeletal aches and pain - Could be withdrawal from narcotics - Could be from sepsis, Staph aureus bacteremia - Monitor 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, 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[facility], reportedly GIST per pathology Uremic encephalopathy, resolved - Nephrology consulted Acute hyponatremia, resolved - Nephrology consulted for dialysis Increased anion gap metabolic acidosis, resolved - Ketones negative - Plans on dialysis Type 2 diabetes mellitus, A1c 7.8 - Lantus 10 units daily - Low-dose sliding scale Hyperbilirubinemia, bilirubin 7.0, direct hyperbilirubinemia AST within normal, ALT within normal limits, alk phos within normal limits, will monitor Ultrasound abdomen US/US abdomen complete* [id number] IMPRESSION: Technically difficult study due to bowel gas and body habitus. 1. Hepatomegaly. Nodular capsular contour suspicious for cirrhosis. 2. No ascites. 3. Tiny calculus or sludge ball in the gallbladder. No gallbladder wall thickening or pericholecystic fluid seen today. 4. Normal common bile duct measuring 5 mm. 5. No hydronephrosis in the RIGHT kidney. 6. Small simple cyst RIGHT kidney CT scan abdomen pelvis Liver: Hepatomegaly the liver span is 19 cm. No mass. Gallbladder and biliary ducts: Normal. No calcified stones. No ductal dilation. Pancreas: Normal. No ductal dilation. Spleen: Normal. No splenomegaly. Adrenal glands: Normal. No mass. Kidneys and ureters: Bilateral benign renal cysts right side the cyst measures 38 mm x 22 mm, Lower pole right kidney 14 mm x 22 mm The left kidney cyst measures 13 mm. These findings were present on prior examination and appears similar. No additional follow-up is recommended for these lesions. No hydronephrosis. Stomach and bowel: There are multiple diverticuli scattered throughout the sigmoid colon. . No obstruction. No mucosal thickening. Appendix: No evidence of appendicitis. Intraperitoneal space: Unremarkable. No free air. No significant fluid collection. Vasculature: Unremarkable. No abdominal aortic aneurysm. Lymph nodes: Unremarkable. No enlarged lymph nodes. Urinary bladder: Unremarkable as visualized. Reproductive: Unremarkable as visualized. Bones/joints: Lumbar spine osteoarthritis and levoscoliosis. No acute fracture. Soft tissues: Unremarkable. - Could be Gilbert's disease - Cholestatic jaundice from sepsis, antibiotics - Monitor liver function, alk phos, bilirubin - HIDA scan ordered NSTEMI - No chest pain complaints - T wave inversions in anterior leads - Cardiac echo CONCLUSIONS Technically limited quality echocardiogram because of poor ultrasonic windows. LV systolic function is mildly reduced with EF of 45-50%. RV hypokinesis noted Trace mitral regurgitation Mild tricuspid regurgitation Trace pulmonic regurgitation. Small pericardial effusion IVC appears to be dilated - Heparin drip completed 48 hours - Recent immobility with back pain venous ultrasound, CT angiogram of the chest negative for DVT Systolic CHF exacerbation, fluid overload, BNP over 70,000 - Continue inpatient dialysis Intractable back pain - Possibly withdrawing from his home hydrocodone, resume hydrocodone 10 every 6 hours scheduled Thrombocytopenia, etiology unclear, peripheral smear, improving Full code Heparin for DVT prophylaxis Patient is [facility] does not accept blood products Plan for today blood cultures, continue IV cefazolin, IV doxycycline, stop Decadron, monitor mentation, monitor electrolytes, moved to cardiac stepdown unit encourage p.o. intake seen and blood cultures, hopefully can remove temporary dialysis catheter tomorrow as long as dialysis can be accessed, will have to work on placement PDMP PDMP Reviewed: Last Reviewed 12/13/24 17:30 by José Luis Gonzalez MD Attestations 2 Medical Necessity Statement*: Patient requires hospitalization for Staph aureus bacteremia Diagnoses Encephalopathy acute G93.40 NSTEMI (non-ST elevated myocardial infarction) I21.4 Uremia N19 Hyponatremia E87.1 Polypharmacy Z79.899 Increased anion gap metabolic acidosis E87.29 Hyperglycemia R73.9 Type 2 diabetes mellitus with chronic kidney disease on chronic dialysis, unspecified whether [facility] insulin use E11.22; N18.6; Z99.2 Chronic kidney disease stage: on chronic dialysis Diabetes mellitus complication detail: with chronic kidney disease Diabetes mellitus complication status: with kidney complications Diabetes mellitus [facility] insulin use: unspecified [facility] insulin use status ESRD (end stage renal disease) N18.6 Essential hypertension I10 Hypertension type: essential hypertension Other congestive heart failure I50.9 Heart failure type: other History of coronary artery stent placement Z95.5 Thrombocytopenia D69.6 Intractable back pain M54.9 Staphylococcus aureus bacteremia R78.81; B95.61 Ischemic cerebrovascular accident (CVA) due to global hypoperfusion with watershed infarction I63.9
[2024-12-19 16:38] LABS: Glucose Point of Care 264 mg/dL (70-110)
[2024-12-19] MEDS: ceFAZolin 1,000 mg SDV 1000 MG IVP (17:31)
[2024-12-19 20:37] LABS: Glucose Point of Care 315 mg/dL (70-110)
[2024-12-19] MEDS: atorvastatin 40 mg Tablet PO (21:30)
[2024-12-19] MEDS: latanoprost 0.005% Op Soln 2.5 mL Btl 1 DROP EYE-BOTH (21:33)
[2024-12-20] VITALS (15 sets, daily range): BP systolic 105–169; BP diastolic 50–76; PULSE 66–88; RESP 10–24; TEMP 36.5–37.6; O2SAT 91–95
[2024-12-20] MEDS: doxycycline 100 MG in sodium chloride 0.9% (plus) 100 ML IV ×2 (00:44→14:51)
[2024-12-20] MEDS: LORazepam 1 MG/0.5 ML injection IVP ×2 (02:21→11:12)
[2024-12-20 05:31] LABS: Basophils % 0.2 %; Eosinophils % 0.2 %; Hematocrit 33.2 % (37-53); Lymphocytes # 0.5 10^3/uL (0.8-4.8); Lymphocytes % 4.1 %; Mean Corpuscular HGB Conc 32.8 g/dL (30-55); Mean Corpuscular Hemoglobin 30.4 pg (27-33); Mean Corpuscular Volume 92.5 fl (82-101); Mean Platelet Volume 11.8 fL (7.4-10.4); Monocytes # 0.6 10^3/uL (0.2-0.9); Monocytes % 4.2 %; Neutrophils # 11.73 10^3/uL (1.8-7.7); Neutrophils % 90.2 %; Nucleated Red Blood Cells % 0 %; Platelet Count 164 10^3/cmm (157-399); Red Blood Count 3.59 10^6/uL (3.85-5.65); Red Cell Distribution Width 14.7 % (12.1-15.1); White Blood Count 13.01 10^3/uL (3.29-11.43)
[2024-12-20] MEDS: HYDROcodone-acetaminophen 10-325 mg Tablet 1 TAB PO ×3 (05:40→13:30)
[2024-12-20 06:00] LABS: Alanine Aminotransferase 9 U/L (0-41); Albumin Level 2.3 g/dL (3.5-5.2); Alkaline Phosphatase 247 U/L (40-130); Aspartate Amino Transferase 118 U/L (0-40); Blood Urea Nitrogen 77 mg/dL (6-20); Carbon Dioxide 25 mmol/L (22-29); Chloride 91 mmol/L (98-107); Creatinine Clr Calc Pharmacy 15.9155; Globulin 4.1 g/dL (1.3-4.6); Glomerular Filtration Rate 8.7 mL/min (90-130); Glucose 275 mg/dL (65-115); Osmolality Calculated 313 mOsm/kg (285-295); Sodium 135 mmol/L (136-145); Total Bilirubin 3.7 mg/dL (0.15-1.2); Total Protein 6.4 g/dL (6.6-8.7)
[2024-12-20 06:28] LABS: Glucose Point of Care 301 mg/dL (70-110)
[2024-12-20] MEDS: insulin glargine 100 units/1 mL 10 UNIT SUBCUT (06:39)
--- NOTE | 2024-12-20 08:22 | CT_ITS ---
WS: [id number] CT RIGHT KNEE WITH CONTRAST HISTORY: assess for septic joint Technique: All CT scans at [facility] use at least one of these dose optimization techniques: automated exposure control; mA and/or kV adjustment per patient size (includes targeted exams where dose is matched to clinical indication); or iterative reconstruction. DLP: 279.41 mGy.cm COMPARISON: None available. Omnipaque IV 100 mL. Large suprapatellar joint effusion extends over a length of 10 cm. Slightly lobulated effusion with enhancing wall. Mild increased attenuation within the fluid. There is soft tissue edema throughout the entire knee with loss of muscle volume. Extensive vascular calcifications. Moderate to severe lateral compartment joint space narrowing with subchondral cysts along the joint line. Marginal osteophytes bilaterally. No bone destruction or osteolysis. CT/CT knee RT w con [id number] IMPRESSION: 1. Large RIGHT knee joint effusion with peripheral enhancement. Septic joint i s not excluded. 2. Extensive arterial vascular calcifications. 3. Advanced degenerative changes in the lateral compartment. 4. No osteolysis or fracture.
--- NOTE | 2024-12-20 08:22 | USCV_ITS ---
Kt Jett Age: 59 Gender: M : 1965 Exam Date: 12/20/2024 08:34 Ordering Phys: Karyn Rehman MD Technologist: STEPHANIE Exam Location: [facility] [place] Indication: LUE Swelling HISTORY: Upper extremity swelling. PROCEDURES: Venous duplex imaging was performed in only the left upper extremity. The following venous structures were evaluated: internal jugular vein, subclavian vein, axillary vein, and brachial veins. In addition, the basilic vein, cephalic vein, radial vein, and ulnar vein. Serial compression, augmentation maneuvers, and spectral Doppler flow evaluation were performed. FINDINGS: Normal 2-D, color Doppler and phasicity noted in the left upper extremity venous system extending from the left internal jugular vein through the main forearm. No thrombosis or occlusion noted. CONCLUSIONS No left upper extremity DVT. Dr. Traci Odom DO (Electronically Signed) Final Date: 20 December 2024 09:12 S
--- NOTE | 2024-12-20 08:23 | P.PN_ITS ---
Subjective 2 Subjective: Infectious disease progress note Patient is more conversant today, however lethargic, prefers to go back to sleep. He is correctly able to tell me his name, date of . Noted interval swelling of the right knee especially the medial compartment. Noted also interval swelling of the left hand. Medications: Reviewed: Yes Vitals/I&O/Wt Last Vital Signs Temp 98.4 F 12/20/24 03:54 Pulse 71 12/20/24 03:54 Resp 16 12/20/24 03:54 BP 161/76 12/20/24 03:54 Pulse Ox 94 12/20/24 03:54 O2 Del Method Room Air 12/20/24 03:54 O2 Flow Rate 2 12/18/24 04:00 12/19/24 12/20/24 12/20/24 22:59 06:59 14:59 Intake Total 960 / 1660 100 / 1760 Balance 960 / 1660 100 / 1760 Weight last 48 hrs Weight 117.027 kg Weight 113.126 kg Weight 114 kg Physical Exam 2 Narrative: General: lethargic, prefers to sleep however wakes up to answer basic questions. AO x2-3 HEENT: PERRLA, pupils bilaterally equal and reactive, pallors not present Chest: Normal vesicular breath sounds, no added sounds, equal good air entry bilaterally CVS: S1-S2 regular, no murmurs, no tachycardia, no gallops, no rubs Abdomen: Soft, nontender, no organomegaly, bowel sounds present EXT: rigth fem line and right SC CVC Right knee swelling noted , no cellulitis, TTP medial compartment Left hand swelling noted Data 12/20/24 04:40 12/20/24 04:40 A&P Assessment and plan (1) Staphylococcus aureus bacteremia: 59-year-old male with ESRD on hemodialysis via right arm AV fistula admitted to the hospital with altered mental status and found to have Staph aureus bacteremia. Blood culture positive from December 12, 2024. Subsequent blood culture thus far is negative. Review of sensitivity reveals this to be MSSA Discontinue piperacillin/tazobactam and vancomycin Changed treatment to organism directed therapy with cefazolin 1 g IV every 24 hours in keeping with his impaired kidney function. Source of infection may be developing myositis versus abscess of the right deltoid as noted on the CTA of the extremities. Uncertain if this may be the primary problem or represent a secondary embolization. On examination there is a scab over the right deltoid, patient refused, telehealth if he had any injury over your site. He blanco owns several cats and statess that he may have scratched him at some point. Denies any recent intramuscular injections. No known history of IV drug use. Recently had presented with intractable back pain. CT of the lumbar spine without signs of osteomyelitis, discitis or epidural abscess. VJ taken today without any vegetations Right arm fistula site without any discernable abscess, small collection likely to represent hematoma vs seroma. No noted thrombosis. Dialysis fistula has reportedly not been accessible during hospital course, patient currently has a right femoral temp HD line. Also has right IJ central line placed during this admission. (2) Myositis: as above may be secondary embolization vs primary source does not appear to have any drainable collection small scab noted over area of involvement uncertain if there has been recent trauma at this site (3) Stroke: management per primary (4) ESRD (end stage renal disease): on maintainence HD , typically right arm fistula Plan 12/17/24: care plan discussed iw hospitalist. Patient is contuning to be encephalopathic. Blood cx positive from 12/14. Leukocytosis improving, platelets improved. T bili rising up at 7.7 without signs of hemolysis. AST/ALT/ALP without significant elevation. US abdomen without any biliary dilattaion or GB changes. ? gilbert syndrome. Changed to cefazolin from zosyn/vanc on 12/15/24. continue same for now. Overall suspect staph aureus bacteremia with encephalopthay to be the cause of persisting symptoms. CT CAP on admission on 12/12 without any acute chest or abdominal sources of infection. Bartonella, tick panel remains pending. Started on presumptive doxycycline which can continue December 20, 2024 Mentation is slightly lower than last exam. He has recently seen resting however prefers to go back to sleep. Blood culture remains negative as of December 17, 2024. Last December 14, 2024 with MSSA. Currently on cefazolin 1 g IV every 24 hours. Consider removal of right femoral hemodialysis temporary catheter if his fistula is currently functioning. Additionally consider removal of right chest CVC as cefazolin can be timed with dialysis to 2 g 3 times a week. Doxycycline can be transition to oral if patient is able to tolerate oral intake.Interval development of right knee swelling- Check CT knee , comcern for septic arthritis. Obtain Duplex LUE to assess for any DVT. Will follow PDMP PDMP Reviewed: Not Reviewed Attestations 2 Medical Necessity Statement*: per admitting Coding Level of Care Code Acute Code for Chg Fwd High MDM includes number and complexity of problems actively addressed during encounter, amount and/or complexity of data reviewed/ordered and described risk of complication, morbidity or mortality of management as documented Diagnoses Staphylococcus aureus bacteremia R78.81; B95.61 Myositis M60.9 Stroke I63.9 ESRD (end stage renal disease) N18.6
[2024-12-20] MEDS: aspirin 81 mg EC Tablet PO (09:48)
[2024-12-20] MEDS: insulin lispro 100 unit/1 mL SUBCUT ×3 (09:48→17:03)
[2024-12-20] MEDS: citalopram 20 mg Tablet 10 MG PO (09:48)
[2024-12-20] MEDS: dorzolamide/timolol Op Soln 10 mL Btl 1 DROP EYE-BOTH ×2 (10:00→17:04)
[2024-12-20] MEDS: brimonidine 0.2% Op Soln 5 mL Btl 1 DROP EYE-BOTH ×3 (10:01→20:14)
[2024-12-20] MEDS: iohexol 350 mg/mL 500 mL Btl (per mL) IV (10:38)
--- NOTE | 2024-12-20 11:10 | NM_ITS ---
WS: [id number] NUCLEAR MEDICINE HIDA SCAN WITH GALLBLADDER EJECTION FRACTION HISTORY: hyperbilirubenmia COMPARISON: Ultrasound 12/15/2024 TECHNIQUE: The patient was intravenously injected with 7.9 mCi of TC99m Mebrofenin. Immediate imaging over the right upper quadrant was followed by 5 minute image and additional images for a total of 60 minutes. Normal uptake of radiotracer throughout the liver. Activity identified in the gallbladder at 20-30 minutes and well distended by 60 minutes. Activity in the proximal small bowel was seen by 60 minutes. Adequate washout of the radiotracer from the liver by 60 minutes. The patient then drank 8 ounces of Ensure Plus. There is no ejection fraction at 60 minutes. The counts within the gallbladder continued to increase over time. Post fatty meal symptoms: None. NM/NM hepatobiliary w phar* [id number] IMPRESSION: 1. No cystic or common bile duct obstruction identified. 2. The gallbladder did not contract. May be related to chronic cholecystitis o r dyskinesia. This may be of falsely positive study as the patient does have nu merous sedatives ordered and this may be affecting contractility of the gallbla dder.
[2024-12-20] MEDS: pantoprazole 40 mg SDV IVP (12:59)
--- NOTE | 2024-12-20 13:12 | PC.SOCIAL ---
IMM Update pg 2 of IMM Updated and reviewed w/ patient. Copy provided and copy dated, initialed and placed in chart.
[2024-12-20 13:24] LABS: Glucose Point of Care 230 mg/dL (70-110)
--- NOTE | 2024-12-20 13:30 | PC.NURSE ---
pt went from ct scan (right knee), to hida scan in nuc med.nuc med called unit and requested something to relax pt as he was unable to lay still for test.ativan given as ordered.returned to unit at 1300.
--- NOTE | 2024-12-20 13:59 | P.PN_ITS ---
Subjective 2 Subjective: no new c/o Medications: Reviewed: Yes Vitals/I&O/Wt Last Vital Signs Temp 98.2 F 12/20/24 12:00 Pulse 74 12/20/24 12:00 Resp 20 H 12/20/24 12:00 BP 152/67 12/20/24 12:00 Pulse Ox 92 12/20/24 12:00 O2 Del Method Room Air 12/20/24 12:00 O2 Flow Rate 2 12/18/24 04:00 12/19/24 12/20/24 12/20/24 22:59 06:59 14:59 Intake Total 960 / 1660 100 / 1760 Balance 960 / 1660 100 / 1760 Weight last 48 hrs Weight 117.027 kg Weight 113.126 kg Weight 114 kg Physical Exam 2 Narrative: GEN: nad, HEAD: normocephalic, atraumatic EYES: eyes are closed HEENT: mmm NECK: no jvd CV: rrr LUNGS: diminished BS ABD: soft, nt, nd EXT: NO LE edema NEURO: lethargic SKIN: no rash Data 12/20/24 04:40 12/20/24 04:40 Micro: Microbiology 12/14/24 05:09 Blood Culture - Final Blood Staphylococcus aureus A&P Assessment and plan (1) ESRD (end stage renal disease): Plan 1. End-stage renal disease- he is on maintenance HD on a MWF schedule. he had hd on 12/12 and 12/13 due to encephalopathy. he received IV contrast and had HD today place on low K diet s/p temp HD catheter due to AVF malfunction 2. History of hypertension- resume home meds 3. Anemia in ckd- Hemoglobin at goal 4. Intractable back pain- due to lumbar radiculopathy , 5. History of coronary artery disease 6. Encephalopathy- likely metabolic 7. RUE CTA concerning for myositis and ? abscess, general surgery following Pt evaluated using audiovisual cart. Time spent 20 min PDMP PDMP Reviewed: Not Reviewed Attestations 2 Medical Necessity Statement*: per medicine Coding Level of Care Code Acute Code for Chg Fwd Diagnoses ESRD (end stage renal disease) N18.6
--- NOTE | 2024-12-20 16:00 | PM.PN ---
Subjective Subjective: Patient very lethargic and lacking in ability to thoroughly answer questions Vitals/I&O/Wt Last Vital Signs Temp 99.5 F 12/21/24 12:00 Pulse 80 12/21/24 12:00 Resp 16 12/21/24 12:00 BP 168/73 12/21/24 12:00 Pulse Ox 93 12/21/24 12:00 O2 Del Method Room Air 12/21/24 12:00 O2 Flow Rate 2 12/21/24 00:00 12/20/24 12/21/24 12/21/24 22:59 06:59 14:59 Intake Total 150 / 150 220 / 370 840 / 840 Output Total 0 / 0 Balance 150 / 150 220 / 370 840 / 840 Weight last 48 hrs Weight 116.301 kg Weight 117.027 kg Physical Exam Narrative: Patient lethargic nonfocal on exam attempts to answer questions very soft-spoken Heart regular rate and rhythm normal S1-S2 without murmurs clicks gallops or rubs Lungs clear to auscultation without wheezes rales or rhonchi Abdomen obese soft no identifiable tenderness no hepatosplenomegaly Extremities swollen left hand no significant edema in the lower extremities except for the right knee medially Data 12/21/24 03:12 12/21/24 03:12 Micro: Microbiology 12/14/24 05:09 Blood Culture - Final Blood Staphylococcus aureus A&P Assessment and plan (1) Encephalopathy acute: (2) NSTEMI (non-ST elevated myocardial infarction): (3) Uremia: (4) Hyponatremia: (5) Polypharmacy: (6) Increased anion gap metabolic acidosis: (7) Hyperglycemia: (8) Diabetes mellitus, type II: (9) ESRD (end stage renal disease): (10) Hypertension: (11) Congestive heart failure: (12) History of coronary artery stent placement: (13) Thrombocytopenia: (14) Intractable back pain: (15) Staphylococcus aureus bacteremia: (16) Ischemic cerebrovascular accident (CVA) due to global hypoperfusion with watershed infarction: Plan Physical deconditioning, poor oral nutrition - From custodial facility - Encourage p.o. intake - Ensure shakes twice daily Acute persistent encephalopathy, resolving -Overall clinically improving Cat scratch disease concerns - Bartonella titers ordered - Was on IV steroids but stopped on 12/19/2024 - Continue doxycycline Staphylococcus aureus bacteremia - On cefazolin. ID following; and we talked daily about this patient - Repeat blood cultures 12/17/2024, so far negative - Back in 2020, he also had Staph aureus bacteremia, source was subclavian port which was removed - Now with recurrent Staphylococcus aureus bacteremia - No source identified. Workup negative of CT C/T/L-spine, VJ negative for valvular vegetations -Will need a total of 6 weeks IV antibiotics to be given during dialysis Issues with the right arm dialysis fistula site - Patient has reportedly had difficulty as an outpatient. 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, 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 The radiologist reported chronic cholecystitis or dyskinesia Fallick it was a falsely positive exam because of sedatives? NSTEMI - No chest pain complaints - T wave inversions in anterior leads - Cardiac echo: LV systolic function is mildly reduced with EF of 45-50%. RV hypokinesis noted Trace mitral regurgitation Mild tricuspid regurgitation Trace pulmonic regurgitation. Small pericardial effusion IVC appears to be dilated - Heparin drip completed 48 hours - Recent immobility with back pain venous ultrasound, CT angiogram of the chest negative for DVT Systolic CHF exacerbation, fluid overload, BNP over 70,000 - Continue inpatient dialysis Intractable back pain - Possibly withdrawing from his home hydrocodone, resume hydrocodone 10 every 6 hours scheduled Thrombocytopenia, etiology unclear, peripheral smear, improving Full code Heparin for DVT prophylaxis Patient is [employer] does not accept blood products NEW: Awaiting CT knee results HIDA scan results and to speak with dialysis PDMP PDMP Reviewed: Not Reviewed Attestations Medical Necessity Statement*: Patient with sepsis and still with encephalopathy requires continued hospitalization Coding Level of Care Code Acute Code for Chg Fwd Diagnoses Encephalopathy acute G93.40 NSTEMI (non-ST elevated myocardial infarction) I21.4 Uremia N19 Hyponatremia E87.1 Polypharmacy Z79.899 Increased anion gap metabolic acidosis E87.29 Hyperglycemia R73.9 Type 2 diabetes mellitus with chronic kidney disease on chronic dialysis, unspecified whether alf insulin use E11.22; N18.6; Z99.2 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
[2024-12-20 16:25] LABS: Lyme AB Screen <0.90 index
[2024-12-20 17:05] LABS: Glucose Point of Care 208 mg/dL (70-110)
--- NOTE | 2024-12-20 18:03 | PC.NURSE ---
to dialysis via bed,at 1700
[2024-12-20] MEDS: albumin 12.5 GM/50 ML VIAL IV (19:09)
[2024-12-20] MEDS: latanoprost 0.005% Op Soln 2.5 mL Btl 1 DROP EYE-BOTH (20:14)
[2024-12-20] MEDS: atorvastatin 40 mg Tablet PO (20:14)
[2024-12-20] MEDS: ceFAZolin 1,000 mg SDV 1000 MG IVP (20:14)
[2024-12-20 20:26] LABS: Glucose Point of Care 155 mg/dL (70-110)
[2024-12-21] VITALS (16 sets, daily range): BP systolic 105–177; BP diastolic 52–77; PULSE 72–95; RESP 8–29; TEMP 36.7–38.2; O2SAT 90–97
[2024-12-21] MEDS: HYDROcodone-acetaminophen 10-325 mg Tablet 1 TAB PO ×5 (00:28→17:25)
[2024-12-21] MEDS: doxycycline 100 MG in sodium chloride 0.9% (plus) 100 ML IV (00:29)
[2024-12-21 03:39] LABS: Basophils % 0.3 %; Eosinophils % 0.2 %; Hematocrit 32.3 % (37-53); Lymphocytes # 0.6 10^3/uL (0.8-4.8); Lymphocytes % 4.2 %; Mean Corpuscular HGB Conc 32.5 g/dL (30-55); Mean Corpuscular Hemoglobin 30.1 pg (27-33); Mean Corpuscular Volume 92.6 fl (82-101); Mean Platelet Volume 11.5 fL (7.4-10.4); Monocytes # 0.7 10^3/uL (0.2-0.9); Monocytes % 4.8 %; Neutrophils # 13.32 10^3/uL (1.8-7.7); Neutrophils % 89.4 %; Nucleated Red Blood Cells % 0 %; Platelet Count 157 10^3/cmm (157-399); Red Blood Count 3.49 10^6/uL (3.85-5.65); Red Cell Distribution Width 14.7 % (12.1-15.1); White Blood Count 14.88 10^3/uL (3.29-11.43)
[2024-12-21 03:57] LABS: Alanine Aminotransferase < 5 U/L (0-41); Albumin Level 2.3 g/dL (3.5-5.2); Alkaline Phosphatase 262 U/L (40-130); Anion Gap 18.8 (5-19); Aspartate Amino Transferase 82 U/L (0-40); Blood Urea Nitrogen 67 mg/dL (6-20); Calcium 8.2 mg/dL (8.5-10.5); Carbon Dioxide 27 mmol/L (22-29); Chloride 95 mmol/L (98-107); Creatinine Clr Calc Pharmacy 17.4526; Globulin 4.3 g/dL (1.3-4.6); Glomerular Filtration Rate 9.7 mL/min (90-130); Glucose 234 mg/dL (65-115); Osmolality Calculated 309 mOsm/kg (285-295); Potassium 4.8 mmol/L (3.5-5.1); Sodium 136 mmol/L (136-145); Total Bilirubin 3.5 mg/dL (0.15-1.2); Total Protein 6.6 g/dL (6.6-8.7)
[2024-12-21] MEDS: insulin glargine 100 units/1 mL 10 UNIT SUBCUT (06:09)
[2024-12-21 06:13] LABS: Glucose Point of Care 295 mg/dL (70-110)
--- NOTE | 2024-12-21 07:18 | P.PN_ITS ---
Subjective 2 Subjective: no new c/o s/p HD yesterday Medications: Reviewed: Yes Vitals/I&O/Wt Last Vital Signs Temp 98.1 F 12/21/24 03:37 Pulse 79 12/21/24 03:37 Resp 17 12/21/24 03:37 BP 156/71 12/21/24 03:37 Pulse Ox 90 12/21/24 03:37 O2 Del Method Room Air 12/21/24 03:37 O2 Flow Rate 2 12/21/24 00:00 12/20/24 12/21/24 12/21/24 22:59 06:59 14:59 Intake Total 150 / 150 220 / 370 Output Total 0 / 0 Balance 150 / 150 220 / 370 Weight last 48 hrs Weight 116.301 kg Weight 117.027 kg Physical Exam 2 Narrative: GEN: nad, HEAD: normocephalic, atraumatic EYES: eyes are closed HEENT: mmm NECK: no jvd CV: rrr LUNGS: diminished BS ABD: soft, nt, nd EXT: NO LE edema NEURO: lethargic SKIN: no rash Data 12/21/24 03:12 12/21/24 03:12 Micro: Microbiology 12/14/24 05:09 Blood Culture - Final Blood Staphylococcus aureus A&P Assessment and plan (1) ESRD (end stage renal disease): Plan 1. End-stage renal disease- he is on maintenance HD on a MWF schedule. he had hd on 12/12 and 12/13 due to encephalopathy. he received IV contrast and had HD tomorrow place on low K diet s/p temp HD catheter due to AVF malfunction , but AVF functioning well now 2. History of hypertension- resume home meds 3. Anemia in ckd- Hemoglobin at goal 4. Intractable back pain- due to lumbar radiculopathy , 5. History of coronary artery disease 6. Encephalopathy- likely metabolic 7. RUE CTA concerning for myositis and ? abscess, general surgery following 8. st aureus bacteremia , VJ negative Pt evaluated using audiovisual cart. Time spent 20 min PDMP PDMP Reviewed: Not Reviewed Attestations 2 Medical Necessity Statement*: per katalina Coding Level of Care Code Acute Code for Chg Fwd Diagnoses ESRD (end stage renal disease) N18.6
[2024-12-21] MEDS: aspirin 81 mg EC Tablet PO (08:15)
[2024-12-21] MEDS: citalopram 20 mg Tablet 10 MG PO (08:15)
[2024-12-21] MEDS: insulin lispro 100 unit/1 mL SUBCUT ×3 (08:15→17:26)
[2024-12-21] MEDS: brimonidine 0.2% Op Soln 5 mL Btl 1 DROP EYE-BOTH ×3 (08:16→20:35)
[2024-12-21] MEDS: dorzolamide/timolol Op Soln 10 mL Btl 1 DROP EYE-BOTH ×2 (08:16→17:25)
--- NOTE | 2024-12-21 10:20 | XRR_ITS ---
PROCEDURE INFORMATION: Exam: XR Chest Exam date and time: 12/21/2024 11:13 AM Age: 59 years old Clinical indication: Shortness of breath; Additional info: Assess for interval pneumonia TECHNIQUE: Imaging protocol: Radiologic exam of the chest. Views: 1 view. COMPARISON: CR (CHEST, ) 12/12/2024 1:12 PM FINDINGS: Tubes, catheters and devices: Right central venous catheter terminates over the right atrium. Lungs: Hypoaeration of the lungs with bibasilar opacities, increased on the left compared to prior radiograph. Pleural spaces: No appreciable pleural fluid. No pneumothorax. Heart/Mediastinum: Stable cardiomegaly. Bones/joints: No acute abnormality. Dextroscoliosis. XR/XR chest 1V portable [id number] IMPRESSION: 1. Hypoaeration of the lungs with bibasilar opacities, increased on the left compared to prior radiograph, may be due to atelectasis and/or infectious/inflammatory process. 2. Stable cardiomegaly.
[2024-12-21] MEDS: pantoprazole 40 mg SDV IVP (10:49)
[2024-12-21 10:54] LABS: Uric Acid 6.1 mg/dL (3.4-7.0)
--- NOTE | 2024-12-21 11:46 | P.PN_ITS ---
Subjective 2 Subjective: ID progress note patient is more alert and awake today, able to answer all orientation questions. T max 99.8F today. CT knee as below: Medications: Reviewed: Yes Vitals/I&O/Wt Last Vital Signs Temp 99.8 F H 12/21/24 08:00 Pulse 81 12/21/24 08:00 Resp 20 H 12/21/24 08:00 BP 177/75 12/21/24 08:00 Pulse Ox 94 12/21/24 08:00 O2 Del Method Room Air 12/21/24 08:00 O2 Flow Rate 2 12/21/24 00:00 12/20/24 12/21/24 12/21/24 22:59 06:59 14:59 Intake Total 150 / 150 220 / 370 720 / 720 Output Total 0 / 0 Balance 150 / 150 220 / 370 720 / 720 Weight last 48 hrs Weight 116.301 kg Weight 117.027 kg Physical Exam 2 Narrative: General: more alert and awake today HEENT: PERRLA, pupils bilaterally equal and reactive, pallors not present Chest: Normal vesicular breath sounds, no added sounds, equal good air entry bilaterally CVS: S1-S2 regular, no murmurs, no tachycardia, no gallops, no rubs Abdomen: Soft, nontender, no organomegaly, bowel sounds present EXT: rigth fem line and right SC CVC Right knee swelling noted , no cellulitis, TTP medial compartment Left hand swelling noted Data 12/21/24 03:12 12/21/24 03:12 Micro: Microbiology 12/14/24 05:09 Blood Culture - Final Blood Staphylococcus aureus A&P Assessment and plan (1) Staphylococcus aureus bacteremia: 59-year-old male with ESRD on hemodialysis via right arm AV fistula admitted to the hospital with altered mental status and found to have Staph aureus bacteremia. Blood culture positive from December 12, 2024. Subsequent blood culture thus far is negative. Review of sensitivity reveals this to be MSSA Discontinue piperacillin/tazobactam and vancomycin Changed treatment to organism directed therapy with cefazolin 1 g IV every 24 hours in keeping with his impaired kidney function. Source of infection may be developing myositis versus abscess of the right deltoid as noted on the CTA of the extremities. Uncertain if this may be the primary problem or represent a secondary embolization. On examination there is a scab over the right deltoid, patient refused, telehealth if he had any injury over your site. He blanco owns several cats and statess that he may have scratched him at some point. Denies any recent intramuscular injections. No known history of IV drug use. Recently had presented with intractable back pain. CT of the lumbar spine without signs of osteomyelitis, discitis or epidural abscess. VJ taken today without any vegetations Right arm fistula site without any discernable abscess, small collection likely to represent hematoma vs seroma. No noted thrombosis. Dialysis fistula has reportedly not been accessible during hospital course, patient currently has a right femoral temp HD line. Also has right IJ central line placed during this admission. (2) Myositis: as above may be secondary embolization vs primary source does not appear to have any drainable collection small scab noted over area of involvement uncertain if there has been recent trauma at this site (3) Stroke: management per primary (4) ESRD (end stage renal disease): on maintainence HD , typically right arm fistula Plan 12/17/24: care plan discussed iw hospitalist. Patient is contuning to be encephalopathic. Blood cx positive from 12/14. Leukocytosis improving, platelets improved. T bili rising up at 7.7 without signs of hemolysis. AST/ALT/ALP without significant elevation. US abdomen without any biliary dilattaion or GB changes. ? gilbert syndrome. Changed to cefazolin from zosyn/vanc on 12/15/24. continue same for now. Overall suspect staph aureus bacteremia with encephalopthay to be the cause of persisting symptoms. CT CAP on admission on 12/12 without any acute chest or abdominal sources of infection. Bartonella, tick panel remains pending. Started on presumptive doxycycline which can continue December 20, 2024 Mentation is slightly lower than last exam. He has recently seen resting however prefers to go back to sleep. Blood culture remains negative as of December 17, 2024. Last December 14, 2024 with MSSA. Currently on cefazolin 1 g IV every 24 hours. Consider removal of right femoral hemodialysis temporary catheter if his fistula is currently functioning. Additionally consider removal of right chest CVC as cefazolin can be timed with dialysis to 2 g 3 times a week. Doxycycline can be transition to oral if patient is able to tolerate oral intake.Interval development of right knee swelling- Check CT knee , comcern for septic arthritis. Obtain Duplex LUE to assess for any DVT. Will follow December 21, 2024 Improved mentation today, able to answer all orientation questions correctly and attempts to speak in small sentences in conversation. Very deconditioned overall. Blood cx from 12/17 remains negative however low grade fever noted at 99.8F. Check resp panel. check CXR. Recheck blood cx with am labs. CT knee completed yesterday shows Large RIGHT knee joint effusion with peripheral enhancement. This is new compared to exam last week, concerned about septic arthritis/seeding from MSSA. Consider orthopedic evaluation for [id number] fluid analysis, crystal analysis and culture to further assess. This may be the cause of low grade fever and WBC trend to 14K today. Hida scan raises concern for cholecystistis, denies any RUQ tenderness. PDMP PDMP Reviewed: Not Reviewed Attestations 2 Medical Necessity Statement*: per admitting Coding Level of Care Code Acute Code for Chg Fwd High MDM includes number and complexity of problems actively addressed during encounter, amount and/or complexity of data reviewed/ordered and described risk of complication, morbidity or mortality of management as documented Diagnoses Staphylococcus aureus bacteremia R78.81; B95.61 Myositis M60.9 Stroke I63.9 ESRD (end stage renal disease) N18.6
[2024-12-21 12:03] LABS: Glucose Point of Care 320 mg/dL (70-110)
--- NOTE | 2024-12-21 12:30 | PM.CONSULT ---
Providers/Reason For Consult Consulting Physician/Specialty*: Willi Peters MD Orthopedic surgery Reason for Consult*: Swollen right knee, effusion Attending Physician: Ant Patel DO Primary Care Provider: Sandy Kelly MD History of Present Illness History of Present Illness Kt Jett is a 59 year old male who has been admitted to the hospital for some time now for septicemia. He has MSSA positive blood cultures. He has a long history of kidney failure and renal dialysis use. He was admitted for signs of septicemia with changes in mentation. However over the course of his hospital stay patient is improved. Blood cultures remain positive. He has now developed an effusion in his right knee services taking care of him are concerned that he may have seeded his right knee with bacteria and I am concerned that this is a septic joint. They have requested orthopedic evaluation and possible aspiration of the joint. Review of Systems General: Reports: 10 or more systems reviewed and unremarkable except in HPI and below and ROS unobtainable due to medical condition Narrative: Consitutional: denies fever Card: Denies chest pain, palpitations, irregular heart rhythm Resp: Denies shortness of breath Musc: Denies extremity pain Skin: Denies rash, lesions, or wounds, denies changes to skin color Neuro: Denies nubmness in extremities Daniel: Denies easy bruiding/bleeding Const: Denies: fever(s) or chills Eyes: Reports: change in vision; Denies: photophobia ENMT: Denies: enlarged tonsils Card: Reports: palpitations, irregular heart rhythm and edema; Denies: chest pain Resp: Denies: dyspnea GI: Denies: abdominal pain : Denies: dysuria, urinary frequency or urinary urgency Musc: Reports: back pain and extremity pain; Denies: neck pain Skin/Breast: Reports: surgical incision; Denies: rash Medications/Allergies Home Medications ?Medication ?Instructions ?Recorded ?Confirmed ?Last Taken ?Type pantoprazole 40 mg tablet,delayed 40 mg PO DAILY 07/13/19 12/12/24 12/12/24 08:00 History release vitamin B complex-vitamin C-folic 1 tab PO DAILY 03/03/22 12/12/24 12/12/24 08:00 History acid 0.8 mg tablet Discontinue Dressing Changes #1 ea 07/16/22 12/12/24 Unknown Rx Diabetic shoes with Accomadative #1 ea 08/14/22 12/12/24 Unknown Rx Insoles vit B,C-folic ac 800 mcg-zinc 12.5 1 tab PO DAILY 07/11/23 12/12/24 12/07/24 History mg-selen-D3 2,000 unit-vit E tablet (RenaPlex-D) amlodipine 5 mg tablet 5 mg PO DAILY #90 tabs 09/14/24 12/12/24 12/12/24 Rx citalopram 10 mg tablet 10 mg PO DAILY 09/14/24 12/12/24 12/12/24 08:00 History latanoprost 0.005 % eye drops 1 drp ophthalmic (eye) DAILY 09/14/24 12/12/24 12/11/24 20:00 History minoxidil 2.5 mg tablet 5 mg PO BID 09/14/24 12/12/24 12/12/24 09:00 History polyethylene glycol 3350 17 4 g PO DAILY #238 grams 11/23/24 12/12/24 12/12/24 08:00 Rx gram/dose oral powder (Miralax) dorzolamide 22.3 mg-timolol 6.8 1 drp ophthalmic (eye) BID 12/08/24 12/12/24 12/07/24 08:00 History mg/mL eye drops insulin degludec 100 unit/mL (3 20 unit SUBCUT DAILY 12/08/24 12/12/24 12/07/24 History mL) subcutaneous pen (Tresiba FlexTouch U-100 insulin) carvedilol 6.25 mg tablet 12.5 mg (2 x 6.25 mg) PO BID #180 12/09/24 12/12/24 12/12/24 09:00 Rx tabs dexamethasone 6 mg tablet 6 mg PO DAILY 5 days #5 tabs 12/09/24 12/12/24 12/12/24 08:00 Rx hydralazine 10 mg tablet 10 mg PO Q6H 30 days #120 tabs 12/09/24 12/12/24 12/12/24 06:00 Rx lanthanum 1,000 mg chewable tablet 750 mg PO TID 12/09/24 12/12/24 Unknown History lidocaine 5 % topical patch 1 patch topical Q24H PRN pain 7 12/09/24 12/12/24 Unknown Rx days #7 ea clonidine HCl 0.1 mg tablet 0.1 mg PO BID PRN for sbp>180 or 12/10/24 12/12/24 Unknown Rx dbp>100 30 days #60 tabs hydrocodone 10 mg-acetaminophen 1 - 2 tab PO Q8H PRN pain 3 days 12/10/24 12/12/24 12/11/24 Rx 325 mg tablet #18 tabs insulin lispro 100 unit/mL See Rx Instructions .Route 12/10/24 12/12/24 12/11/24 16:00 Rx subcutaneous solution (Humalog .COMPLEX #10 mL U-100 Insulin) naloxone 4 mg/actuation nasal 4 mg intranasal Q2M PRN opioid 12/10/24 12/12/24 Unknown Rx spray (Narcan) overdose #2 ea naproxen 500 mg tablet 500 mg PO BID PRN pain 7 days #14 12/10/24 12/12/24 Unknown Rx tabs bisacodyl 10 mg rectal suppository 10 mg TN DAILY PRN Constipation 12/12/24 12/12/24 Unknown History (Dulcolax (bisacodyl)) sodium phosphates 19 gram-7 118 ml TN DAILY PRN Constipation 12/12/24 12/12/24 Unknown History gram/118 mL enema (Fleet Enema) Allergies Allergy/AdvReac Type Severity Reaction Status Date / Time No Known Allergies Allergy Verified 12/16/24 07:30 Current Medications Generic Name Dose Route Start Last Admin Trade Name Freq PRN Reason Stop Dose Admin Acetaminophen 650 mg 12/12/24 11:33 12/14/24 21:51 Acetaminophen 325 Mg Tablet PO 650 mg Q6H PRN Administration Mild/Mod Pain Or Temp >/= 101 Hydrocodone Bitart/Acetaminophen 1 tab 12/13/24 17:30 12/22/24 05:25 Hydrocodone-Acetaminophen 10-325 Mg Tablet PO 1 tab Q6H NATHANAEL Administration Hydrocodone Bitart/Acetaminophen 1 tab 12/16/24 14:25 12/22/24 04:24 Hydrocodone-Acetaminophen 10-325 Mg Tablet PO 1 tab Q12H PRN Administration SEVERE PAIN Aspirin 81 mg 12/12/24 15:35 12/21/24 08:15 Aspirin 81 Mg Ec Tablet PO 81 mg DAILY NATHANAEL Administration Atorvastatin Calcium 40 mg 12/12/24 21:00 12/21/24 20:35 Atorvastatin 40 Mg Tablet PO 40 mg BEDTIME NATHANAEL Administration Brimonidine Tartrate 1 drop 12/13/24 21:00 12/21/24 20:35 Brimonidine 0.2% Op Soln 5 Ml Btl EYE-BOTH 1 drop TID NATHANAEL Administration Citalopram Hydrobromide 10 mg 12/13/24 09:00 12/21/24 08:15 Citalopram 20 Mg Tablet PO 10 mg DAILY NATHANAEL Administration Dorzolamide/Timolol 1 drop 12/12/24 18:00 12/21/24 17:25 Dorzolamide/Timolol Op Soln 10 Ml Btl EYE-BOTH 1 drop BID NATHANAEL Administration Doxycycline Monohydrate 100 mg 12/21/24 18:00 12/21/24 17:25 Doxycycline 100 Mg Tablet PO 100 mg BID NATHANAEL Administration Protocol Heparin Sodium (Porcine) 5,000 unit 12/14/24 18:15 12/17/24 05:41 Heparin 5,000 Unit/Ml Inj 1 Ml SUBCUT 5,000 unit On Hold: 12/17/24 11:12 Q12H NATHANAEL Administration Albumin Human 12.5 gm in 50 mls @ 60 mls/hr 12/20/24 06:29 12/20/24 20:09 Albumin IV Infused PRN PRN Infusion Hypotension and/or symptomatic Insulin Glargine 10 unit 12/13/24 06:00 12/22/24 05:28 Insulin Glargine 100 Units/1 Ml SUBCUT 10 unit QAM NATHANAEL Administration Insulin Human Lispro 0 unit 12/12/24 15:00 12/21/24 17:26 Insulin Lispro 100 Unit/1 Ml SUBCUT 6 unit TIDWM NATHANAEL Administration Protocol Lanolin 1 applic 12/14/24 17:28 12/14/24 19:19 Lanolin Oint 7 Gm TOPICAL 1 applic PRN PRN Administration DRYNESS Latanoprost 1 drop 12/13/24 21:00 12/21/24 20:35 Latanoprost 0.005% Op Soln 2.5 Ml Btl EYE-BOTH 1 drop BEDTIME NATHANAEL Administration Lorazepam 1 mg 12/15/24 09:19 12/22/24 05:25 Lorazepam 1 Mg/0.5 Ml Injection IVP 1 mg Q8H PRN Administration ANXIETY Pantoprazole Sodium 40 mg 12/12/24 11:45 12/21/24 10:49 Pantoprazole 40 Mg Sdv IVP 40 mg Q24H NATHANAEL Administration PFSH Acute PFSH: Medical History NSTEMI (non-ST elevated myocardial infarction) Hypertension Essential hypertension MSSA bacteremia Infection due to Port-A-Cath Anemia Hemodialysis access site with arteriovenous graft CAD (coronary artery disease) Hx of staphylococcal infection Chronic back pain Osteoarthritis Fibromyalgia GERD (gastroesophageal reflux disease) CKD (chronic kidney disease) Lumbar disc disease End stage renal disease on dialysis Diabetes mellitus Hypertensive emergency Congestive heart failure ESRD (end stage renal disease) Diabetes mellitus, type II Cardiomyopathy Surgical History Status post insertion of hemodialysis catheter Status post peritoneal dialysis History of coronary artery stent placement S/P tonsillectomy S/P carpal tunnel release H/O circumcision History of cataract surgery Family History Mother Aneurysm Grandmother Cancer Sister Cancer Social History Smoking and tobacco/nicotine status: unknown if used tobacco/nicotine Alcohol intake: never Substance/Drug Use: former 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 Clean since 1991 Lives independently: Yes Household members: none Housing: House Marital status: service: No Current occupational status: disabled Dietary Habits: Current diet type/program: regular Exercise: What type of physical activity do you participate in?: walking Vitals/I&O/Wt Last Vital Signs Temp 98.6 F 12/22/24 04:00 Pulse 82 12/22/24 05:52 Resp 14 12/22/24 04:00 BP 171/88 12/22/24 04:00 Pulse Ox 92 12/22/24 04:00 O2 Del Method Room Air 12/22/24 04:00 O2 Flow Rate 2 12/21/24 00:00 12/21/24 12/21/24 12/22/24 14:59 22:59 06:59 Intake Total 840 / 840 120 / 960 360 / 1320 Balance 840 / 840 120 / 960 360 / 1320 Weight last 48 hrs Weight 258 lb 11.2 oz Weight 256 lb 6.4 oz Weight 0 oz Physical Exam Narrative: On examination of his right knee he does demonstrate a large effusion. The knee is slightly warm to touch however no erythema about it. The patient does state that is somewhat tender. No other gross abnormalities are noted at this time. Data 12/22/24 03:16 12/22/24 03:16 Micro: Microbiology 12/17/24 03:51 Blood Culture - Final Blood NO GROWTH AFTER 5 DAYS 12/17/24 03:53 Blood Culture - Final Blood NO GROWTH AFTER 5 DAYS 12/22/24 03:16 Blood Culture - Preliminary Blood SPECIMEN COLLECTED 12/22/24 03:13 Blood Culture - Preliminary Blood SPECIMEN COLLECTED 12/21/24 12:45 Gram Stain - Final Synovial Fluid Other data: CT scan of his knee demonstrates a large effusion primarily in the suprapatellar pouch and anterior knee region. It also demonstrates osteoarthritic changes of the right knee. No signs of any bone destruction or osteomyelitis. A&P Assessment and plan (1) Inflammatory arthritis: At this time I believe the patient has transient inflammatory arthritis secondary to his sepsis. Plan Plan at this time is to go ahead and aspirate the knee. This was done under sterile conditions and approximately 30 cc of what appears to be synovial fluid was removed from the knee at this time. Samples were placed in culture tubes and nursing staff instructed to send for cultures. There does not appear to be any purulent material within this. I will follow-up with the patient if the cultures come back positive. However, this morning likely just inflammatory arthritis can be treated conservatively. PDMP PDMP Reviewed: Not Reviewed Consult Attestations Medical Necessity Statement: Patient need continued IV antibiotics as well as dialysis. He needs continued medical support Coding Level of Care Code Critical Care >/= 30 minutes Diagnoses Inflammatory arthritis M19.90
[2024-12-21 13:09] LABS: Adenovirus Not Detected (NOT DETECT); Chlamydia Pneumoniae Not Detected (NOT DETECT); Coronavirus 229E,HKU1,NL63,OC4 Not Detected (NOT DETECT); Human Metapneumovirus Not Detected (NOT DETECT); Human Rhinovirus/Enterovirus Not Detected (NOT DETECT); Influenza A Not Detected (NOT DETECT); Influenza A H1 Not Detected (NOT DETECT); Influenza A H1-2009 Not Detected (NOT DETECT); Influenza A H3 Not Detected (NOT DETECT); Influenza B Not Detected (NOT DETECT); Mycoplasma Pneumoniae Not Detected (NOT DETECT); Parainfluenza Virus Type 1 Not Detected (NOT DETECT); Parainfluenza Virus Type 2 Not Detected (NOT DETECT); Parainfluenza Virus Type 3 Not Detected (NOT DETECT); Parainfluenza Virus Type 4 Not Detected (NOT DETECT); Respiratory Syncytial Virus A Not Detected (NOT DETECT); Respiratory Syncytial Virus B Not Detected (NOT DETECT); SARS-COV-2 Not Detected (NOT DETECT)
--- NOTE | 2024-12-21 13:24 | PM.PN ---
Subjective Subjective: Patient reports doing better today. He is more alert and conversive today able to answer questions appropriately. He denies new symptoms Vitals/I&O/Wt Last Vital Signs Temp 99.5 F 12/21/24 12:00 Pulse 80 12/21/24 12:00 Resp 16 12/21/24 12:00 BP 168/73 12/21/24 12:00 Pulse Ox 93 12/21/24 12:00 O2 Del Method Room Air 12/21/24 12:00 O2 Flow Rate 2 12/21/24 00:00 12/20/24 12/21/24 12/21/24 22:59 06:59 14:59 Intake Total 150 / 150 220 / 370 720 / 720 Output Total 0 / 0 Balance 150 / 150 220 / 370 720 / 720 Weight last 48 hrs Weight 116.301 kg Weight 117.027 kg Physical Exam Narrative: Awake opening eyes more although no eye contact due to blindness. Able to answer questions appropriately. Displayed understanding of infection Heart regular normal S1-S2 without murmurs clicks gallops or rubs Lungs clear to auscultation anteriorly Abdomen obese mild tenderness in RUQ, nl BS Extremities edema of the left hand-venous scan was negative, no edema in the legs except for the left knee had a large knee effusion Data 12/21/24 03:12 12/21/24 03:12 Micro: Microbiology 12/14/24 05:09 Blood Culture - Final Blood Staphylococcus aureus Other CT: Radiologist's impression: IMPRESSION: 1. Large RIGHT knee joint effusion with peripheral enhancement. Septic joint is not excluded. 2. Extensive arterial vascular calcifications. 3. Advanced degenerative changes in the lateral compartment. 4. No osteolysis or fracture. Other Imaging: Radiologist's impression: Nuclear medicine HIDA scan with gallbladder ejection fraction IMPRESSION: 1. No cystic or common bile duct obstruction identified. 2. The gallbladder did not contract. May be related to chronic cholecystitis or dyskinesia. This may be of falsely positive study as the patient does have numerous sedatives ordered and this may be affecting contractility of the gallbladder. A&P Assessment and plan (1) Encephalopathy acute: (2) NSTEMI (non-ST elevated myocardial infarction): (3) Uremia: (4) Hyponatremia: (5) Polypharmacy: (6) Increased anion gap metabolic acidosis: (7) Hyperglycemia: (8) Diabetes mellitus, type II: (9) ESRD (end stage renal disease): (10) Hypertension: (11) Congestive heart failure: (12) History of coronary artery stent placement: (13) Thrombocytopenia: (14) Intractable back pain: (15) Staphylococcus aureus bacteremia: (16) Ischemic cerebrovascular accident (CVA) due to global hypoperfusion with watershed infarction: Plan Physical deconditioning, poor oral nutrition - From senior care facility - Encourage p.o. intake - Ensure shakes twice daily Acute persistent encephalopathy, resolving -Overall clinically improving Cat scratch disease concerns -Multiple superficial cat scratches seen on both arms - Potentially cat scratch disease - Bartonella titers ordered - Was on IV steroids but stopped on 12/19/2024 - Continue doxycycline Staphylococcus aureus bacteremia - On cefazolin. ID following; and we talked daily about this patient - Repeat blood cultures 12/17/2024, so far negative - Back in 2020, he also had Staph aureus bacteremia, source was subclavian port which was removed - Now with recurrent Staphylococcus aureus bacteremia - No source identified. Workup negative of CT C/T/L-spine, VJ negative for valvular vegetations -Will need a total of 6 weeks IV antibiotics to be given during dialysis Issues with the right arm dialysis fistula site - Patient has reportedly had difficulty as an outpatient. However our inpatient dialysis team has been able to utilize the fistula since admission Myositis, continue cefazolin-most likely seeding from S SSA Acute CVA due to global hypoperfusion with watershed stroke Head CT no acute findings CTA head and neck CT/CT angio headneck* [id number] IMPRESSION: 1. No significant cervical ICA stenosis. 2. Moderate to advanced intracranial atheromatous disease with segmental narrowing appears advanced for patient this age. 3. Dense cavernous carotid calcification. 4. Moderate to severe segmental stenosis involving the [employer] territories bilaterally RIGHT greater than LEFT. Basilar artery remains patent. Distal vessels appear patent MRI brain IMPRESSION: 1. Very small acute lacunar infarcts in the LEFT ortega radiata. These may be along the watershed distribution between arterial territories. No hemorrhage. 2. Otherwise mild cerebral and cerebellar volume loss and atrophy - Etiology likely secondary to hypotension episode in the emergency room plan: -Repeat head CT within normal limits -Neurologically improved with serial exams -Continues to improve -aspirin; Plavix on hold given thrombocytopenia -permissive hypertension - Avoid hypotensive episodes Bilateral eye blindness - Etiology unclear -Symptomatology resolved last night, currently resolved - Dilated eye exam, no papilledema, no star sign - Consulted phthalmology, no disease identified Diffuse musculoskeletal aches and pain-improved - Could be withdrawal from narcotics - Could be from sepsis, Staph aureus bacteremia - Monitor 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, 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 The radiologist reported chronic cholecystitis or dyskinesia Fallick it was a falsely positive exam because of sedatives? NSTEMI - No chest pain complaints - T wave inversions in anterior leads - Cardiac echo: LV systolic function is mildly reduced with EF of 45-50%. RV hypokinesis noted Trace mitral regurgitation Mild tricuspid regurgitation Trace pulmonic regurgitation. Small pericardial effusion IVC appears to be dilated - Heparin drip completed 48 hours - Recent immobility with back pain venous ultrasound, CT angiogram of the chest negative for DVT Systolic CHF exacerbation, fluid overload, BNP over 70,000 - Continue inpatient dialysis Intractable back pain - Possibly withdrawing from his home hydrocodone, resume hydrocodone 10 every 6 hours scheduled Thrombocytopenia, etiology unclear, peripheral smear, improving Full code Heparin for DVT prophylaxis Patient is [facility] does not accept blood products NEW: right knee effusion. Ortho consulted. Completed arthrodesis. Fluid sent for Gram stain and culture Will monitor WBC 1 more day now that the fluid has been removed from the right knee however I remain concerned about the gallbladder. He does have some tenderness in that location I will consult surgery for their recommendation PDMP PDMP Reviewed: Not Reviewed Attestations Medical Necessity Statement*: Patient requires hospitalization for Staph aureus bacteremia Coding Level of Care Code Acute Code for Chg Fwd Diagnoses Encephalopathy acute G93.40 NSTEMI (non-ST elevated myocardial infarction) I21.4 Uremia N19 Hyponatremia E87.1 Polypharmacy Z79.899 Increased anion gap metabolic acidosis E87.29 Hyperglycemia R73.9 Type 2 diabetes mellitus with chronic kidney disease on chronic dialysis, unspecified whether [facility] insulin use E11.22; N18.6; Z99.2 Diabetes mellitus [facility] insulin use: unspecified [facility] insulin use status Diabetes mellitus complication status: with kidney complications Diabetes mellitus complication detail: with chronic kidney disease Chronic kidney disease stage: on chronic dialysis ESRD (end stage renal disease) N18.6 Essential hypertension I10 Hypertension type: essential hypertension Other congestive heart failure I50.9 Heart failure type: other History of coronary artery stent placement Z95.5 Thrombocytopenia D69.6 Intractable back pain M54.9 Staphylococcus aureus bacteremia R78.81; B95.61 Ischemic cerebrovascular accident (CVA) due to global hypoperfusion with watershed infarction I63.9
--- NOTE | 2024-12-21 14:10 | PM.CONSULT ---
Providers/Reason For Consult Consulting Physician/Specialty*: Dr. Thacker General Surgery Reason for Consult*: Rule out cholecystitis Attending Physician: Ant Patel DO Primary Care Provider: Sandy Kelly MD History of Present Illness History of Present Illness Kt Jett is a 59 year old male with MRSA bacteremia. HIDA obtained to rule out cholecystitis. HIDA is negative for cholecystitis. On exam abdomen is nontender. Medications/Allergies Home Medications ?Medication ?Instructions ?Recorded ?Confirmed ?Last Taken ?Type pantoprazole 40 mg tablet,delayed 40 mg PO DAILY 07/13/19 12/12/24 12/12/24 08:00 History release vitamin B complex-vitamin C-folic 1 tab PO DAILY 03/03/22 12/12/24 12/12/24 08:00 History acid 0.8 mg tablet Discontinue Dressing Changes #1 ea 07/16/22 12/12/24 Unknown Rx Diabetic shoes with Accomadative #1 ea 08/14/22 12/12/24 Unknown Rx Insoles vit B,C-folic ac 800 mcg-zinc 12.5 1 tab PO DAILY 07/11/23 12/12/24 12/07/24 History mg-selen-D3 2,000 unit-vit E tablet (RenaPlex-D) amlodipine 5 mg tablet 5 mg PO DAILY #90 tabs 09/14/24 12/12/24 12/12/24 Rx citalopram 10 mg tablet 10 mg PO DAILY 09/14/24 12/12/24 12/12/24 08:00 History latanoprost 0.005 % eye drops 1 drp ophthalmic (eye) DAILY 09/14/24 12/12/24 12/11/24 20:00 History minoxidil 2.5 mg tablet 5 mg PO BID 09/14/24 12/12/24 12/12/24 09:00 History polyethylene glycol 3350 17 4 g PO DAILY #238 grams 11/23/24 12/12/24 12/12/24 08:00 Rx gram/dose oral powder (Miralax) dorzolamide 22.3 mg-timolol 6.8 1 drp ophthalmic (eye) BID 12/08/24 12/12/24 12/07/24 08:00 History mg/mL eye drops insulin degludec 100 unit/mL (3 20 unit SUBCUT DAILY 12/08/24 12/12/24 12/07/24 History mL) subcutaneous pen (Tresiba FlexTouch U-100 insulin) carvedilol 6.25 mg tablet 12.5 mg (2 x 6.25 mg) PO BID #180 12/09/24 12/12/24 12/12/24 09:00 Rx tabs dexamethasone 6 mg tablet 6 mg PO DAILY 5 days #5 tabs 12/09/24 12/12/24 12/12/24 08:00 Rx hydralazine 10 mg tablet 10 mg PO Q6H 30 days #120 tabs 12/09/24 12/12/24 12/12/24 06:00 Rx lanthanum 1,000 mg chewable tablet 750 mg PO TID 12/09/24 12/12/24 Unknown History lidocaine 5 % topical patch 1 patch topical Q24H PRN pain 7 12/09/24 12/12/24 Unknown Rx days #7 ea clonidine HCl 0.1 mg tablet 0.1 mg PO BID PRN for sbp>180 or 12/10/24 12/12/24 Unknown Rx dbp>100 30 days #60 tabs hydrocodone 10 mg-acetaminophen 1 - 2 tab PO Q8H PRN pain 3 days 12/10/24 12/12/24 12/11/24 Rx 325 mg tablet #18 tabs insulin lispro 100 unit/mL See Rx Instructions .Route 12/10/24 12/12/24 12/11/24 16:00 Rx subcutaneous solution (Humalog .COMPLEX #10 mL U-100 Insulin) naloxone 4 mg/actuation nasal 4 mg intranasal Q2M PRN opioid 12/10/24 12/12/24 Unknown Rx spray (Narcan) overdose #2 ea naproxen 500 mg tablet 500 mg PO BID PRN pain 7 days #14 12/10/24 12/12/24 Unknown Rx tabs bisacodyl 10 mg rectal suppository 10 mg UT DAILY PRN Constipation 12/12/24 12/12/24 Unknown History (Dulcolax (bisacodyl)) sodium phosphates 19 gram-7 118 ml UT DAILY PRN Constipation 12/12/24 12/12/24 Unknown History gram/118 mL enema (Fleet Enema) Allergies Allergy/AdvReac Type Severity Reaction Status Date / Time No Known Allergies Allergy Verified 12/16/24 07:30 Current Medications Generic Name Dose Route Start Last Admin Trade Name Kailashq PRN Reason Stop Dose Admin Acetaminophen 650 mg 12/12/24 11:33 12/14/24 21:51 Acetaminophen 325 Mg Tablet PO 650 mg Q6H PRN Administration Mild/Mod Pain Or Temp >/= 101 Hydrocodone Bitart/Acetaminophen 1 tab 12/13/24 17:30 12/21/24 10:49 Hydrocodone-Acetaminophen 10-325 Mg Tablet PO 1 tab Q6H NATHANAEL Administration Hydrocodone Bitart/Acetaminophen 1 tab 12/16/24 14:25 12/21/24 04:06 Hydrocodone-Acetaminophen 10-325 Mg Tablet PO 1 tab Q12H PRN Administration SEVERE PAIN Aspirin 81 mg 12/12/24 15:35 12/21/24 08:15 Aspirin 81 Mg Ec Tablet PO 81 mg DAILY NATHANAEL Administration Atorvastatin Calcium 40 mg 12/12/24 21:00 12/20/24 20:14 Atorvastatin 40 Mg Tablet PO 40 mg BEDTIME NATHANAEL Administration Brimonidine Tartrate 1 drop 12/13/24 21:00 12/21/24 08:16 Brimonidine 0.2% Op Soln 5 Ml Btl EYE-BOTH 1 drop TID NATHANAEL Administration Citalopram Hydrobromide 10 mg 12/13/24 09:00 12/21/24 08:15 Citalopram 20 Mg Tablet PO 10 mg DAILY NATHANAEL Administration Dorzolamide/Timolol 1 drop 12/12/24 18:00 12/21/24 08:16 Dorzolamide/Timolol Op Soln 10 Ml Btl EYE-BOTH 1 drop BID NATHANAEL Administration Heparin Sodium (Porcine) 5,000 unit 12/14/24 18:15 12/17/24 05:41 Heparin 5,000 Unit/Ml Inj 1 Ml SUBCUT 5,000 unit On Hold: 12/17/24 11:12 Q12H NATHANAEL Administration Albumin Human 12.5 gm in 50 mls @ 60 mls/hr 12/20/24 06:29 12/20/24 20:09 Albumin IV Infused PRN PRN Infusion Hypotension and/or symptomatic Insulin Glargine 10 unit 12/13/24 06:00 12/21/24 06:09 Insulin Glargine 100 Units/1 Ml SUBCUT 10 unit QAM NATHANAEL Administration Insulin Human Lispro 0 unit 12/12/24 15:00 12/21/24 12:35 Insulin Lispro 100 Unit/1 Ml SUBCUT 10 unit TIDWM NATHANAEL Administration Protocol Lanolin 1 applic 12/14/24 17:28 12/14/24 19:19 Lanolin Oint 7 Gm TOPICAL 1 applic PRN PRN Administration DRYNESS Latanoprost 1 drop 12/13/24 21:00 12/20/24 20:14 Latanoprost 0.005% Op Soln 2.5 Ml Btl EYE-BOTH 1 drop BEDTIME NATHANAEL Administration Lorazepam 1 mg 12/15/24 09:19 12/20/24 11:12 Lorazepam 1 Mg/0.5 Ml Injection IVP 1 mg Q8H PRN Administration ANXIETY Pantoprazole Sodium 40 mg 12/12/24 11:45 12/21/24 10:49 Pantoprazole 40 Mg Sdv IVP 40 mg Q24H NATHANAEL Administration PFSH Acute PFSH: Medical History NSTEMI (non-ST elevated myocardial infarction) Hypertension Essential hypertension MSSA bacteremia Infection due to Port-A-Cath Anemia Hemodialysis access site with arteriovenous graft CAD (coronary artery disease) Hx of staphylococcal infection Chronic back pain Osteoarthritis Fibromyalgia GERD (gastroesophageal reflux disease) CKD (chronic kidney disease) Lumbar disc disease End stage renal disease on dialysis Diabetes mellitus Hypertensive emergency Congestive heart failure ESRD (end stage renal disease) Diabetes mellitus, type II Cardiomyopathy Surgical History Status post insertion of hemodialysis catheter Status post peritoneal dialysis History of coronary artery stent placement S/P tonsillectomy S/P carpal tunnel release H/O circumcision History of cataract surgery Family History Mother Aneurysm Grandmother Cancer Sister Cancer Social History Smoking and tobacco/nicotine status: unknown if used tobacco/nicotine Alcohol intake: never Substance/Drug Use: former 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 Clean since 1991 Lives independently: Yes Household members: none Housing: House Marital status: service: No Current occupational status: disabled Vitals/I&O/Wt Last Vital Signs Temp 99.5 F 12/21/24 12:00 Pulse 80 12/21/24 12:00 Resp 16 12/21/24 12:00 BP 168/73 12/21/24 12:00 Pulse Ox 93 12/21/24 12:00 O2 Del Method Room Air 12/21/24 12:00 O2 Flow Rate 2 12/21/24 00:00 12/20/24 12/21/24 12/21/24 22:59 06:59 14:59 Intake Total 150 / 150 220 / 370 840 / 840 Output Total 0 / 0 Balance 150 / 150 220 / 370 840 / 840 Weight last 48 hrs Weight 256 lb 6.4 oz Weight 258 lb Physical Exam Narrative: Chest: Unlabored breathing room air. No lymphadenopathy. Heart: Regular rate and rhythm. Abdomen: Soft, nontender, nondistended. No masses or lymphadenopathy. Data 12/22/24 03:16 12/22/24 03:16 Micro: Microbiology 12/14/24 05:09 Blood Culture - Final Blood Staphylococcus aureus A&P Assessment and plan (1) Abnormal biliary HIDA scan: Plan 59-year-old male with MRSA bacteremia. HIDA scan reviewed. No evidence of cholecystitis. Rest of HIDA scan findings are incidental. I do not recommend additional workup from a surgical standpoint. GI tract is an unlikely source for this MRSA bacteremia. PDMP PDMP Reviewed: Not Reviewed Coding Level of Care Code 88554 Diagnoses Abnormal biliary HIDA scan R94.8
--- NOTE | 2024-12-21 14:11 | PM.MISC ---
Miscellaneous Note Note: Full consult note to follow. Reviewed HIDA scan - no evidence of cholecystitis. No additional workup indicated from a surgical standpoint. Discussed with hospitalist.
[2024-12-21 14:35] LABS: Bartonella DNA PCR Source csf; Bartonella Henselae DNA PCR NOT DETECTED; Bartonella Quintana DNA PCR NOT DETECTED
[2024-12-21 15:40] LABS: Leptospira DNA QL NOT DETECTED; Leptospira Source blood
[2024-12-21 16:41] LABS: Cyto Order Verification No Order
[2024-12-21 16:47] LABS: Crystals, Fluid SENT FOR PATH REVIEW
[2024-12-21 17:10] LABS: Glucose Point of Care 233 mg/dL (70-110)
[2024-12-21 17:16] LABS: RBC Synovial Fluid 1 10^3/uL (0-0); Synovial Fluid Mononuclear # 1.283 10^3/uL; Synovial Fluid Polynuclear # 2.685 10^3/uL; WBC Synovial Fluid 3968 /uL (0-150)
[2024-12-21 17:17] LABS: Appearance Synovial Fluid CLOUDY (CLEAR); Color Synovial Fluid YELLOW (PALE YELLOW); PATH Referal YES
[2024-12-21] MEDS: doxycycline 100 mg Tablet PO (17:25)
[2024-12-21] MEDS: LORazepam 1 MG/0.5 ML injection IVP (17:53)
[2024-12-21 18:19] LABS: Bartonella Henselae IgG AB Negative
[2024-12-21 20:15] LABS: Glucose Point of Care 211 mg/dL (70-110)
[2024-12-21] MEDS: latanoprost 0.005% Op Soln 2.5 mL Btl 1 DROP EYE-BOTH (20:35)
[2024-12-21] MEDS: atorvastatin 40 mg Tablet PO (20:35)
[2024-12-22] VITALS (45 sets, daily range): BP systolic 106–184; BP diastolic 49–88; PULSE 69–802; RESP 10–28; TEMP 36.7–37.9; O2SAT 90–95
[2024-12-22 03:38] LABS: Basophils % 0.2 %; Eosinophils # 0.1 10^3/uL (0.0-0.8); Eosinophils % 0.8 %; Hematocrit 31.1 % (37-53); Lymphocytes # 0.8 10^3/uL (0.8-4.8); Lymphocytes % 4.7 %; Mean Corpuscular HGB Conc 33.4 g/dL (30-55); Mean Corpuscular Hemoglobin 30.9 pg (27-33); Mean Corpuscular Volume 92.3 fl (82-101); Mean Platelet Volume 11.2 fL (7.4-10.4); Monocytes # 0.8 10^3/uL (0.2-0.9); Monocytes % 4.7 %; Neutrophils # 15.05 10^3/uL (1.8-7.7); Neutrophils % 88.8 %; Nucleated Red Blood Cells % 0 %; Platelet Count 190 10^3/cmm (157-399); Red Blood Count 3.37 10^6/uL (3.85-5.65); White Blood Count 16.92 10^3/uL (3.29-11.43)
[2024-12-22 04:01] LABS: Alanine Aminotransferase < 5 U/L (0-41); Albumin Level 2.1 g/dL (3.5-5.2); Alkaline Phosphatase 290 U/L (40-130); Anion Gap 24.3 (5-19); Aspartate Amino Transferase 61 U/L (0-40); Blood Urea Nitrogen 80 mg/dL (6-20); Calcium 8.3 mg/dL (8.5-10.5); Carbon Dioxide 21 mmol/L (22-29); Chloride 87 mmol/L (98-107); Creatinine Clr Calc Pharmacy 13.9621; Glomerular Filtration Rate 7.5 mL/min (90-130); Glucose 165 mg/dL (65-115); Osmolality Calculated 292 mOsm/kg (285-295); Potassium 5.3 mmol/L (3.5-5.1); Sodium 127 mmol/L (136-145); Total Bilirubin 3.2 mg/dL (0.15-1.2); Total Protein 6.1 g/dL (6.6-8.7)
[2024-12-22] MEDS: HYDROcodone-acetaminophen 10-325 mg Tablet 1 TAB PO ×5 (04:24→23:38)
[2024-12-22] MEDS: LORazepam 1 MG/0.5 ML injection IVP (05:25)
[2024-12-22] MEDS: insulin glargine 100 units/1 mL 10 UNIT SUBCUT (05:28)
[2024-12-22 05:33] LABS: Glucose Point of Care 206 mg/dL (70-110)
[2024-12-22] MEDS: doxycycline 100 mg Tablet PO (08:25)
[2024-12-22] MEDS: citalopram 20 mg Tablet 10 MG PO (08:25)
[2024-12-22] MEDS: aspirin 81 mg EC Tablet PO (08:25)
[2024-12-22] MEDS: insulin lispro 100 unit/1 mL SUBCUT ×2 (08:25→18:16)
[2024-12-22] MEDS: dorzolamide/timolol Op Soln 10 mL Btl 1 DROP EYE-BOTH ×2 (08:26→18:09)
[2024-12-22] MEDS: brimonidine 0.2% Op Soln 5 mL Btl 1 DROP EYE-BOTH ×3 (08:26→20:42)
[2024-12-22] MEDS: acetaminophen 325 mg Tablet 650 MG PO (08:30)
--- NOTE | 2024-12-22 08:35 | PC.NURSE ---
Verbal orders per Dr. Banks to remove temporary dialysis catheter post dialysis treatment today- 12/22/24.
--- NOTE | 2024-12-22 09:22 | PC.CHAP ---
Pastoral Care Encounter/Spiritual Assessment Type of Contact [] Declined veterinary attendant visit [] Patient/Family/Request visit [] Outpatient visit [] Follow-up visit [] Physician referral [] Code/Alert [x] Routine visit [] Staff referral [] Actively dying [] Patient sleeping [] Family support [] [] Out of room [] Palliative care [] [] Receiving care in room [] Pre-surgical visit [] Trauma [] Long length of stay [] ICU visit [] Other: Relational/Emotional Strength [x] Patient feels connected with others/family/visitors/staff [] Distress [] Loneliness/isolation [] Abandonment Spirituality of Patient [x] Person of Jana [] Attends [employer] of their Jana [x Believes in Prayer [] Reads Bible or Hoahaoism materials [] There are Spiritual issues to be addressed 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 Interventions [x] Prayer [] Active listening [x] Non-anxious presence [x] Spiritual/emotional support [] Crisis/trauma care [] Spiritual counseling [] Bereavement support [] Provided bereavement packet [] Provided Bible/devotional materials [] Provided toy/stuffed animal, coloring book to patient or family member [] Provided Communion [] Anointing/[place] [] Salvation [x] Completed spiritual assessment [] Other: Impact on Illness or Injury [] Angry [] Fearful [] Anxious [] Often cries [] Exhaustion [] Unable to work [] Unable to attend muslim [] Unable to walk/stand [] Unable to read [] Unable to drive [] Unable to eat/drink [] Unable to sleep [] Unable to be with family [] Patient intubated [] Other: Summary Time spent with patient 5 min
--- NOTE | 2024-12-22 09:46 | P.PN_ITS ---
Subjective 2 Subjective: pt sleeping , arousable Medications: Reviewed: Yes Vitals/I&O/Wt Last Vital Signs Temp 100.2 F H 12/22/24 07:56 Pulse 802 H 12/22/24 07:56 Resp 20 H 12/22/24 07:56 BP 184/75 12/22/24 07:56 Pulse Ox 93 12/22/24 07:56 O2 Del Method Room Air 12/22/24 07:56 O2 Flow Rate 2 12/21/24 00:00 12/21/24 12/22/24 12/22/24 22:59 06:59 14:59 Intake Total 120 / 960 360 / 1320 Balance 120 / 960 360 / 1320 Weight last 48 hrs Weight 117.344 kg Weight 116.301 kg Weight 0 g Physical Exam 2 Narrative: GEN: nad, HEAD: normocephalic, atraumatic EYES: eyes are closed HEENT: mmm NECK: no jvd CV: rrr LUNGS: diminished BS ABD: soft, nt, nd EXT: NO LE edema NEURO: lethargic SKIN: no rash Data 12/22/24 03:16 12/22/24 03:16 Micro: Microbiology 12/21/24 12:45 Gram Stain - Final Synovial Fluid Anaerobic Culture - Preliminary 12/17/24 03:51 Blood Culture - Final Blood NO GROWTH AFTER 5 DAYS 12/17/24 03:53 Blood Culture - Final Blood NO GROWTH AFTER 5 DAYS 12/22/24 03:16 Blood Culture - Preliminary Blood SPECIMEN COLLECTED 12/22/24 03:13 Blood Culture - Preliminary Blood SPECIMEN COLLECTED A&P Assessment and plan (1) ESRD (end stage renal disease): Plan 1. End-stage renal disease- he is on maintenance HD on a MWF schedule. he had hd on 12/12 and 12/13 due to encephalopathy. he received IV contrast and had HD today - Patient's AVF is functioning well, can discontinue temporary HD catheter. -place on low K diet 2. History of hypertension- resume home meds 3. Anemia in ckd- Hemoglobin at goal 4. Intractable back pain- due to lumbar radiculopathy , 5. History of coronary artery disease 6. Encephalopathy- likely metabolic 7. RUE CTA concerning for myositis and ? abscess, general surgery following 8. staph aureus bacteremia , VJ negative , ? septic arthritis - awaiting synovial fluid cultures , Pt evaluated using audiovisual cart. Time spent 20 min PDMP PDMP Reviewed: Not Reviewed Attestations 2 Medical Necessity Statement*: per katalina Coding Level of Care Code Acute Code for Chg Fwd Diagnoses ESRD (end stage renal disease) N18.6
--- NOTE | 2024-12-22 10:41 | USCV_ITS ---
Kt Jett Age: 59 Gender: M : 1965 Exam Date: 12/22/2024 11:04 Ordering Phys: Ant Patel DO Technologist: STEPHANIE [place] [facility] [place]: LE Edema HISTORY: Lower extremity edema. PROCEDURES: Venous duplex imaging was performed in bilateral lower extremities. The following venous structures were evaluated: common femoral vein, profunda vein, proximal portion of the greater saphenous vein, superficial femoral vein, and the popliteal vein. In addition, the posterior tibial and peroneal trunk were evaluated. Serial compression, augmentation maneuvers, and spectral Doppler flow evaluation were performed. FINDINGS: Normal 2-D Doppler and augmentation and compressibility throughout the lower extremity venous structures. Additional imaging through the proximal calf veins also reveals no thrombus. Limited evaluation of the greater saphenous vein is patent with no thrombus. CONCLUSIONS No DVT bilateral lower extremities. Dr. Traci Odom DO (Electronically Signed) Final Date: 22 December 2024 14:46 S
--- NOTE | 2024-12-22 10:43 | PICC.NOTE ---
Vascular access nurse consulted for IV access. Pt has central line to right neck that is to be removed tesha. Dr. Rehman states no PICC line at this time. Would like US guided IV placed. If unable to place US IV, midline to be placed. 20 gauge peripheral IV using US placed to left forearm without difficulty. Good blood return noted and flushed without difficulty. Report given to bedside nurse, SIMON Ruiz.
--- NOTE | 2024-12-22 11:02 | PM.PN ---
Subjective Subjective: No new complaints today. Does not appear as alert as yesterday New fever noted Vitals/I&O/Wt Last Vital Signs Temp 100.2 F H 12/22/24 07:56 Pulse 802 H 12/22/24 07:56 Resp 20 H 12/22/24 07:56 BP 184/75 12/22/24 07:56 Pulse Ox 93 12/22/24 07:56 O2 Del Method Room Air 12/22/24 07:56 O2 Flow Rate 2 12/21/24 00:00 12/21/24 12/22/24 12/22/24 22:59 06:59 14:59 Intake Total 120 / 960 360 / 1320 Balance 120 / 960 360 / 1320 Weight last 48 hrs Weight 117.344 kg Weight 116.301 kg Weight 0 g Physical Exam Narrative: Patient with lethargy but opening eyes and following commands. He is not blind was able to tell me how many fingers I was holding up; remains nonfocal Heart regular rate and rhythm normal S1-S2 without murmurs clicks gallops or rubs Lungs clear to auscultation without wheezes rales or rhonchi Abdomen obese soft no identifiable tenderness no hepatosplenomegaly Extremities swollen left hand, tenderness to right calf today, less edema to right knee after arthrodesis Data 12/22/24 03:16 12/22/24 03:16 Micro: Microbiology 12/12/24 13:32 Blood Culture - Final Blood Staphylococcus aureus 12/21/24 12:45 Gram Stain - Final Synovial Fluid Anaerobic Culture - Preliminary 12/17/24 03:51 Blood Culture - Final Blood NO GROWTH AFTER 5 DAYS 12/17/24 03:53 Blood Culture - Final Blood NO GROWTH AFTER 5 DAYS 12/22/24 03:16 Blood Culture - Preliminary Blood SPECIMEN COLLECTED 12/22/24 03:13 Blood Culture - Preliminary Blood SPECIMEN COLLECTED CXR: Radiologist's impression: IMPRESSION: 1. Hypoaeration of the lungs with bibasilar opacities, increased on the left compared to prior radiograph, may be due to atelectasis and/or infectious/inflammatory process. 2. Stable cardiomegaly. A&P Assessment and plan (1) Encephalopathy acute: (2) NSTEMI (non-ST elevated myocardial infarction): (3) Uremia: (4) Hyponatremia: (5) Polypharmacy: (6) Increased anion gap metabolic acidosis: (7) Hyperglycemia: (8) Diabetes mellitus, type II: (9) ESRD (end stage renal disease): (10) Hypertension: (11) Congestive heart failure: (12) History of coronary artery stent placement: (13) Thrombocytopenia: (14) Intractable back pain: (15) Staphylococcus aureus bacteremia: (16) Ischemic cerebrovascular accident (CVA) due to global hypoperfusion with watershed infarction: Plan NEW FEVER. D/W DR YEPEZ ? ASPIRATION- START BROADER COVERAGE. - CHECK VENOUS DUPLEX OF LEGS DUE TO RIGHT CALF TENERNESS - REMOVE TLC AND DIAYLIS CATH ( ORDERED YESTERDAY BUT NOT DONE) BOTH DR YEPEZ AND I ASKED RN TODAY TO REMOVE. Physical deconditioning, poor oral nutrition - From care home facility - Encourage p.o. intake - Ensure shakes twice daily - Dietary consult Acute persistent encephalopathy, resolving -Overall clinically improving Cat scratch disease concerns. DOUBT - Bartonella DNA - NOT DETECTED - lyme negative - Was on IV steroids but stopped on 12/19/2024 - Continue doxycycline for now Staphylococcus aureus bacteremia - On cefazolin. ID following; and we talked daily about this patient - Repeat blood cultures 12/17/2024 negative, repeated today. - recurrent MSSA and hx of MRSA - No source identified. - Myositis, continue cefazolin-most likely seeding from S SSA -Will need a total of 6 weeks IV antibiotics to be given during dialysis FISTULA IS WORKING- NEPHROLOGY FOLLOWING FOR HD M,W,F Acute CVA due to global hypoperfusion with watershed stroke- USUAL TX, ASA, STATIN, BP CONTROL, PT/OT/AITCHBONE BREAKER Systolic CHF exacerbation, fluid overload, BNP over 70,000 - Continue inpatient dialysis WORKED UP FOR BLINDNESS? NOT BLIND FOR ME. 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 appreciate surgery input. gb not involved with MSSA NSTEMI - No chest pain complaints - T wave inversions in anterior leads - Cardiac echo: LV systolic function is mildly reduced with EF of 45-50%. RV hypokinesis noted Trace mitral regurgitation Mild tricuspid regurgitation Trace pulmonic regurgitation. 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 D/C TELE. ABX ABOVE. FUTHER WORK UP OF FEVER/INCR WBC PDMP PDMP Reviewed: Not Reviewed Attestations Medical Necessity Statement*: Patient with sepsis and still with encephalopathy requires continued hospitalization Coding Level of Care Code Acute Code for Chg Fwd Diagnoses Encephalopathy acute G93.40 NSTEMI (non-ST elevated myocardial infarction) I21.4 Uremia N19 Hyponatremia E87.1 Polypharmacy Z79.899 Increased anion gap metabolic acidosis E87.29 Hyperglycemia R73.9 Type 2 diabetes mellitus with chronic kidney disease on chronic dialysis, unspecified whether penitentiary insulin use E11.22; N18.6; Z99.2 Diabetes mellitus penitentiary insulin use: unspecified penitentiary insulin use status Diabetes mellitus complication status: with kidney complications Diabetes mellitus complication detail: with chronic kidney disease Chronic kidney disease stage: on chronic dialysis ESRD (end stage renal disease) N18.6 Essential hypertension I10 Hypertension type: essential hypertension Other congestive heart failure I50.9 Heart failure type: other History of coronary artery stent placement Z95.5 Thrombocytopenia D69.6 Intractable back pain M54.9 Staphylococcus aureus bacteremia R78.81; B95.61 Ischemic cerebrovascular accident (CVA) due to global hypoperfusion with watershed infarction I63.9
[2024-12-22 11:32] LABS: Glucose Point of Care 225 mg/dL (70-110)
--- NOTE | 2024-12-22 11:55 | P.PN_ITS ---
Subjective 2 Subjective: ID progress note leukocytsois up to 16K now T max 100F Medications: Reviewed: Yes Vitals/I&O/Wt Last Vital Signs Temp 100.2 F H 12/22/24 07:56 Pulse 802 H 12/22/24 07:56 Resp 20 H 12/22/24 07:56 BP 184/75 12/22/24 07:56 Pulse Ox 93 12/22/24 07:56 O2 Del Method Room Air 12/22/24 07:56 O2 Flow Rate 2 12/21/24 00:00 12/21/24 12/22/24 12/22/24 22:59 06:59 14:59 Intake Total 120 / 960 360 / 1320 240 / 240 Balance 120 / 960 360 / 1320 240 / 240 Weight last 48 hrs Weight 117.344 kg Weight 116.301 kg Weight 0 g Physical Exam 2 Narrative: General: more alert and awake today HEENT: PERRLA, pupils bilaterally equal and reactive, pallors not present Chest: Normal vesicular breath sounds, no added sounds, equal good air entry bilaterally CVS: S1-S2 regular, no murmurs, no tachycardia, no gallops, no rubs Abdomen: Soft, nontender, no organomegaly, bowel sounds present EXT: rigth fem line and right SC CVC Right knee swelling noted , no cellulitis, TTP medial compartment Left hand swelling noted Data 12/22/24 03:16 12/22/24 03:16 Micro: Microbiology 12/12/24 13:32 Blood Culture - Final Blood Staphylococcus aureus 12/21/24 12:45 Gram Stain - Final Synovial Fluid Anaerobic Culture - Preliminary 12/17/24 03:51 Blood Culture - Final Blood NO GROWTH AFTER 5 DAYS 12/17/24 03:53 Blood Culture - Final Blood NO GROWTH AFTER 5 DAYS 12/22/24 03:16 Blood Culture - Preliminary Blood SPECIMEN COLLECTED 12/22/24 03:13 Blood Culture - Preliminary Blood SPECIMEN COLLECTED A&P Assessment and plan (1) Staphylococcus aureus bacteremia: 59-year-old male with ESRD on hemodialysis via right arm AV fistula admitted to the hospital with altered mental status and found to have Staph aureus bacteremia. Blood culture positive from December 12, 2024. Subsequent blood culture thus far is negative. Review of sensitivity reveals this to be MSSA Discontinue piperacillin/tazobactam and vancomycin Changed treatment to organism directed therapy with cefazolin 1 g IV every 24 hours in keeping with his impaired kidney function. Source of infection may be developing myositis versus abscess of the right deltoid as noted on the CTA of the extremities. Uncertain if this may be the primary problem or represent a secondary embolization. On examination there is a scab over the right deltoid, patient refused, telehealth if he had any injury over your site. He blanco owns several cats and statess that he may have scratched him at some point. Denies any recent intramuscular injections. No known history of IV drug use. Recently had presented with intractable back pain. CT of the lumbar spine without signs of osteomyelitis, discitis or epidural abscess. VJ taken today without any vegetations Right arm fistula site without any discernable abscess, small collection likely to represent hematoma vs seroma. No noted thrombosis. Dialysis fistula has reportedly not been accessible during hospital course, patient currently has a right femoral temp HD line. Also has right IJ central line placed during this admission. (2) Myositis: as above may be secondary embolization vs primary source does not appear to have any drainable collection small scab noted over area of involvement uncertain if there has been recent trauma at this site (3) Stroke: management per primary (4) ESRD (end stage renal disease): on maintainence HD , typically right arm fistula Plan 12/17/24: care plan discussed [facility] hospitalist. Patient is contuning to be encephalopathic. Blood cx positive from 12/14. Leukocytosis improving, platelets improved. T bili rising up at 7.7 without signs of hemolysis. AST/ALT/ALP without significant elevation. US abdomen without any biliary dilattaion or GB changes. ? gilbert syndrome. Changed to cefazolin from zosyn/vanc on 12/15/24. continue same for now. Overall suspect staph aureus bacteremia with encephalopthay to be the cause of persisting symptoms. CT CAP on admission on 12/12 without any acute chest or abdominal sources of infection. Bartonella, tick panel remains pending. Started on presumptive doxycycline which can continue December 20, 2024 Mentation is slightly lower than last exam. He has recently seen resting however prefers to go back to sleep. Blood culture remains negative as of December 17, 2024. Last December 14, 2024 with MSSA. Currently on cefazolin 1 g IV every 24 hours. Consider removal of right femoral hemodialysis temporary catheter if his fistula is currently functioning. Additionally consider removal of right chest CVC as cefazolin can be timed with dialysis to 2 g 3 times a week. Doxycycline can be transition to oral if patient is able to tolerate oral intake.Interval development of right knee swelling- Check CT knee , comcern for septic arthritis. Obtain Duplex LUE to assess for any DVT. Will follow December 21, 2024 Improved mentation today, able to answer all orientation questions correctly and attempts to speak in small sentences in conversation. Very deconditioned overall. Blood cx from 12/17 remains negative however low grade fever noted at 99.8F. Check resp panel. check CXR. Recheck blood cx with am labs. CT knee completed yesterday shows Large RIGHT knee joint effusion with peripheral enhancement. This is new compared to exam last week, concerned about septic arthritis/seeding from MSSA. Consider orthopedic evaluation for [id number] fluid analysis, crystal analysis and culture to further assess. This may be the cause of low grade fever and WBC trend to 14K today. Hida scan raises concern for cholecystistis, denies any RUQ tenderness. December 22, 2024: More lethargic today thougha ble to answer all orientation questions. [place] [address]. S/p synovial fluid analysis on 12/21/24, WBC count 3900, less likely septic joint, though patient has been on abx. Negative gram stain for organisms. Crystal analysis pending. CX pending. Order for removal of rigth SVC central line and right femoral line today. Dialysis ongoing via fistula. PEripheral iv access to be obtained today. CXR showing B/L infiltrates ? potential aspiration. repeat blood cx from yesterday is pending. Broaden abx to meropenem for additonal anerobic and gram negtaive coverage given infiltrates on CXR, concern for aspiration. 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 Add vancomycin empirically while pending results. no diarrhea or abdominal pain. Will follow PDMP PDMP Reviewed: Not Reviewed Attestations 2 Medical Necessity Statement*: per admitting Coding Level of Care Code Acute Code for Chg Fwd Diagnoses Staphylococcus aureus bacteremia R78.81; B95.61 Myositis M60.9 Stroke I63.9 ESRD (end stage renal disease) N18.6
[2024-12-22 12:06] LABS: MRSA PCR OZH (swab) NOT DETECTED (Negative)
--- NOTE | 2024-12-22 14:32 | PHA.VACGOAL ---
Vancomycin Goal - Goal Vancomycin Goal:: 15-20 mg/L Vancomycin Indication:: Other (BACTEREMIA) - Therapy Current therapy:: Meropenem Day of therpy:: Day [1]of [] . Actual body weight (kg): 117.344 kg - Data Labs: WBC 16.92 10^3/uL (3.29-11.43) H 12/22/24 03:16 RBC 3.37 10^6/uL (3.85-5.65) L 12/22/24 03:16 Hgb 10.40 g/dL (11.27-16.99) L 12/22/24 03:16 Hct 31.1 % (37-53) L 12/22/24 03:16 MCV 92.3 fl (82-101) 12/22/24 03:16 MCH 30.9 pg (27-33) 12/22/24 03:16 MCHC 33.4 g/dL (30-55) 12/22/24 03:16 RDW 15.0 % (12.1-15.1) 12/22/24 03:16 Sodium 127 mmol/L (136-145) L 12/22/24 03:16 Potassium 5.3 mmol/L (3.5-5.1) H 12/22/24 03:16 Chloride 87 mmol/L (98-107) L 12/22/24 03:16 Carbon Dioxide 21 mmol/L (22-29) L 12/22/24 03:16 Anion Gap 24.3 (5-19) H 12/22/24 03:16 BUN 80 mg/dL (6-20) H 12/22/24 03:16 Creatinine 7.5 mg/dL (0.7-1.2) H* 12/22/24 03:16 GFR Calculation 7.5 mL/min (90-130) L 12/22/24 03:16 Treatment plan:: new consult Regimen:: Restart of vancomycin for Bacteremia. Last dose was given on 12/14/24 500 mg dose. Patient receiving dialysis today 12/22/24. 500 mg dose ordered after dialysis. Level with AM labs on 12/23.
[2024-12-22] MEDS: albumin 12.5 GM/50 ML VIAL IV (15:33)
--- NOTE | 2024-12-22 16:27 | PC.SLP ---
[employer] REPRESENTATIVE visit attempted. Patient is in dialysis.
[2024-12-22 16:49] LABS: E. Chaffeensis AB IGG <1:64; E. Chaffeensis AB IGM <1:20
--- NOTE | 2024-12-22 17:02 | PC.NURSE ---
Report given to SIMON Blackman on the Medical Surgical unit. Patient in dialysis at this time, will be transferred via bed to room 254-1 post dialysis treatment. Belongings placed at bedside, SIMON Blackman notified.
--- NOTE | 2024-12-22 17:08 | PC.OT ---
OT tx attempted at 1500 and 1700 today. Pt in dialysis at this time. Tx to be attempted again in the a.m.
--- NOTE | 2024-12-22 17:58 | PC.NURSE ---
This nurse assumed care of pt at this time.
[2024-12-22] MEDS: meropenem 1,000 mg SDV 1000 MG IVP (18:09)
[2024-12-22] MEDS: heparin 5,000 unit/mL INJ 1 mL 5000 UNIT SUBCUT (18:09)
[2024-12-22 18:29] LABS: Glucose Point of Care 287 mg/dL (70-110)
[2024-12-22 19:09] LABS: Bartonella quintana Ab.IgG Negative; Bartonella quintana Ab.IgM Negative
[2024-12-22 19:09] LABS: RMSF IGG NOT DETECTED; RMSF IGM NOT DETECTED
--- NOTE | 2024-12-22 19:20 | PC.HD ---
Right femoral dialysis catheter removed intact, good initial blood spurt, pressure held to hemostasis and dressing applied. No hematoma noted.
[2024-12-22] MEDS: atorvastatin 40 mg Tablet PO (20:42)
[2024-12-22] MEDS: latanoprost 0.005% Op Soln 2.5 mL Btl 1 DROP EYE-BOTH (20:42)
[2024-12-22] MEDS: vancomycin 500 MG in sodium chloride 0.9% (plus) 100 ML 200 MG IV (20:42)
[2024-12-22 20:47] LABS: Glucose Point of Care 276 mg/dL (70-110)
[2024-12-23] VITALS: BP 122/60; PULSE 72; RESP 16; TEMP 37.1; O2SAT 91
[2024-12-23 04:00] VITALS: BP 167/70; PULSE 64; RESP 16; TEMP 37.7; O2SAT 98
[2024-12-23 05:52] LABS: Basophils % 0.2 %; Eosinophils # 0.2 10^3/uL (0.0-0.8); Eosinophils % 1.8 %; Hematocrit 29.4 % (37-53); Lymphocytes # 0.6 10^3/uL (0.8-4.8); Lymphocytes % 5.1 %; Mean Corpuscular Hemoglobin 30.7 pg (27-33); Mean Corpuscular Volume 96.1 fl (82-101); Mean Platelet Volume 10.6 fL (7.4-10.4); Monocytes # 0.8 10^3/uL (0.2-0.9); Monocytes % 6.5 %; Neutrophils # 10.65 10^3/uL (1.8-7.7); Neutrophils % 85.6 %; Nucleated Red Blood Cells % 0 %; Platelet Count 206 10^3/cmm (157-399); Red Blood Count 3.06 10^6/uL (3.85-5.65); Red Cell Distribution Width 14.9 % (12.1-15.1); White Blood Count 12.43 10^3/uL (3.29-11.43)
[2024-12-23] MEDS: heparin 5,000 unit/mL INJ 1 mL 5000 UNIT SUBCUT ×2 (06:02→17:12)
[2024-12-23] MEDS: HYDROcodone-acetaminophen 10-325 mg Tablet 1 TAB PO ×3 (06:03→21:25)
[2024-12-23] MEDS: insulin glargine 100 units/1 mL 10 UNIT SUBCUT (06:03)
[2024-12-23 06:15] LABS: Vancomycin Random 9.8 ug/mL (20.0-40.0)
[2024-12-23 06:18] LABS: Glucose Point of Care 249 mg/dL (70-110)
[2024-12-23 06:20] LABS: Slide Review Slide Review Perform
[2024-12-23 06:22] LABS: Blood Urea Nitrogen 65 mg/dL (6-20); Calcium 8.1 mg/dL (8.5-10.5); Carbon Dioxide 25 mmol/L (22-29); Chloride 88 mmol/L (98-107); Creatinine Clr Calc Pharmacy 17.5961; Glomerular Filtration Rate 9.9 mL/min (90-130); Glucose 224 mg/dL (65-115); Osmolality Calculated 296 mOsm/kg (285-295); Sodium 130 mmol/L (136-145)
[2024-12-23 06:28] LABS: Anion Gap 21.7 (5-19); Potassium 4.7 mmol/L (3.5-5.1)
[2024-12-23 07:55] VITALS: BP 164/72; PULSE 89; RESP 17; TEMP 37.7; O2SAT 94
[2024-12-23] MEDS: dorzolamide/timolol Op Soln 10 mL Btl 1 DROP EYE-BOTH ×2 (08:09→17:10)
[2024-12-23] MEDS: brimonidine 0.2% Op Soln 5 mL Btl 1 DROP EYE-BOTH ×3 (08:09→21:26)
[2024-12-23] MEDS: insulin lispro 100 unit/1 mL SUBCUT ×3 (08:10→17:11)
[2024-12-23] MEDS: aspirin 81 mg EC Tablet PO (08:10)
[2024-12-23] MEDS: citalopram 20 mg Tablet 10 MG PO (08:11)
--- NOTE | 2024-12-23 08:58 | PM.PN ---
Subjective Subjective: no new complaints Medications: Reviewed: Yes Vitals/I&O/Wt Last Vital Signs Temp 99.9 F H 12/23/24 07:55 Pulse 89 12/23/24 07:55 Resp 17 12/23/24 07:55 BP 164/72 12/23/24 07:55 Pulse Ox 94 12/23/24 07:55 O2 Del Method Room Air 12/23/24 07:55 O2 Flow Rate 1 12/23/24 04:00 12/22/24 12/23/24 12/23/24 22:59 06:59 14:59 Intake Total 990 / 1470 Output Total 1508 / 1508 Balance -518 / -38 Weight last 48 hrs Weight 114.305 kg Weight 116.074 kg Weight 117.344 kg Physical Exam Narrative: GEN: nad, HEAD: normocephalic, atraumatic EYES: eyes are closed HEENT: mmm NECK: no jvd CV: rrr LUNGS: diminished BS ABD: soft, nt, nd EXT: NO LE edema NEURO: lethargic SKIN: no rash Data 12/23/24 05:37 12/23/24 05:37 Micro: Microbiology 12/22/24 03:16 Blood Culture - Preliminary Blood NEGATIVE TO DATE 12/22/24 03:13 Blood Culture - Preliminary Blood NEGATIVE TO DATE 12/21/24 12:45 Gram Stain - Final Synovial Fluid Anaerobic Culture - Preliminary Body Fluid Culture - Preliminary 12/12/24 13:32 Blood Culture - Final Blood Staphylococcus aureus 12/17/24 03:51 Blood Culture - Final Blood NO GROWTH AFTER 5 DAYS 12/17/24 03:53 Blood Culture - Final Blood NO GROWTH AFTER 5 DAYS A&P Assessment and plan (1) ESRD (end stage renal disease): Plan 1. End-stage renal disease- he is on maintenance HD on a MWF schedule. - Patient's AVF is functioning well, removed temporary HD catheter. -placed on low K diet 2. History of hypertension- resume home meds 3. Anemia in ckd- Hemoglobin at goal 4. Intractable back pain- due to lumbar radiculopathy , 5. History of coronary artery disease 6. Encephalopathy- likely metabolic 7. RUE CTA concerning for myositis and ? abscess, general surgery following 8. staph aureus bacteremia , VJ negative , ? septic arthritis - awaiting synovial fluid cultures , Pt evaluated using audiovisual cart. Time spent 20 min PDMP PDMP Reviewed: Not Reviewed Attestations Medical Necessity Statement*: [facility] Coding Level of Care Code Acute Code for Chg Fwd Diagnoses ESRD (end stage renal disease) N18.6
--- NOTE | 2024-12-23 10:26 | P.PN_ITS ---
Subjective 2 Subjective: Much more awake today. Now starting to complain of pain. Per nursing staff patient describes chronic pain and is always asking for pain medicines. He used to be on a much higher dose of oxycodone but he was lethargic while he was in here and he has been decreased to oxycodone 10 mg every 6 hours. Vitals/I&O/Wt Last Vital Signs Temp 99.9 F H 12/23/24 07:55 Pulse 89 12/23/24 07:55 Resp 17 12/23/24 07:55 BP 164/72 12/23/24 07:55 Pulse Ox 94 12/23/24 07:55 O2 Del Method Room Air 12/23/24 07:55 O2 Flow Rate 1 12/23/24 04:00 12/22/24 12/23/24 12/23/24 22:59 06:59 14:59 Intake Total 990 / 1470 Output Total 1508 / 1508 Balance -518 / -38 Weight last 48 hrs Weight 114.305 kg Weight 116.074 kg Weight 117.344 kg Physical Exam 2 Narrative: Fully awake today. Neurologic nonfocal Heart regular rate and rhythm normal S1-S2 without murmurs clicks gallops or rubs Lungs clear to auscultation anteriorly Abdomen obese soft no identifiable tenderness no hepatosplenomegaly Extremities swollen left hand, remains with edema to right knee but improved after arthrodesis Data 12/23/24 05:37 12/23/24 05:37 Micro: Microbiology 12/22/24 03:16 Blood Culture - Preliminary Blood NEGATIVE TO DATE 12/22/24 03:13 Blood Culture - Preliminary Blood NEGATIVE TO DATE 12/21/24 12:45 Gram Stain - Final Synovial Fluid Anaerobic Culture - Preliminary Body Fluid Culture - Preliminary 12/12/24 13:32 Blood Culture - Final Blood Staphylococcus aureus Venous duplex: Radiologist's impression: No DVT bilateral lower extremity A&P Assessment and plan (1) Encephalopathy acute: (2) NSTEMI (non-ST elevated myocardial infarction): (3) Uremia: (4) Hyponatremia: (5) Polypharmacy: (6) Increased anion gap metabolic acidosis: (7) Hyperglycemia: (8) Diabetes mellitus, type II: (9) ESRD (end stage renal disease): (10) Hypertension: (11) Congestive heart failure: (12) History of coronary artery stent placement: (13) Thrombocytopenia: (14) Intractable back pain: (15) Staphylococcus aureus bacteremia: (16) Ischemic cerebrovascular accident (CVA) due to global hypoperfusion with watershed infarction: Plan Afebrile. Tmax 99.9. White count has decreased D/W DR YEPEZ Patient without source identified. Possible aspiration. Possible abscess or infection adjacent to fistula, also could have been seeded lines that were removed yesterday Staphylococcus aureus bacteremia - On cefazolin. ID following; and we talked daily about this patient - Repeat blood cultures 12/17/2024 negative, repeated today. - recurrent MSSA and hx of MRSA - No source identified. - Myositis, continue cefazolin-most likely seeding from S SSA -Will need a total of 6 weeks IV antibiotics to be given during dialysis Physical deconditioning, poor oral nutrition - From custodial facility - Encourage p.o. intake - Ensure shakes twice daily Cat scratch disease concerns. DOUBT - Bartonella DNA - NOT DETECTED - lyme negative - Was on IV steroids but stopped on 12/19/2024 - Continue doxycycline for now End-stage renal disease on hemodialysis Friday. 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 RV hypokinesis noted Trace mitral regurgitation Mild tricuspid regurgitation Trace pulmonic regurgitation. Small pericardial effusion IVC appears to be dilated Type 2 diabetes mellitus, A1c 7.8 - Lantus 10 units daily - Low-dose sliding scale Hyperbilirubinemia, bilirubin max was 7.0, now improving to 3.2 Ultrasound negative and HIDA scan negative for acute alec. appreciate surgery input. gb not involved with MSSA Chronic back pain -patient has demonstrated behavior for addiction. His opioids were stopped and then it appeared his might be withdrawing. Patient's dose of oxycodone was decreased to 10 mg every 6 hours schedule - Possibly withdrawing from his home hydrocodone, resume hydrocodone 10 every 6 hours scheduled Thrombocytopenia, etiology unclear, normalized on 12/18/2024. Now up to 206. Full code Heparin for DVT prophylaxis Patient is [facility] does not accept blood products Plan for today: Infectious disease would like to monitor on current antibiotics for another 24 hours. If continues to have elevated temperatures or at actual fever over 100.5 will need to look at the myositis area. If no further elevated temps, then ID would recommend discharged on a modified course of meropenem and vancomycin and continue cefepime for the total of 6 weeks. PDMP PDMP Reviewed: Not Reviewed Attestations 2 Medical Necessity Statement*: Patient is markedly improved however he still having elevated temperatures although this could be related to room temperature and blankets. We will monitor for another day wait for the most recent blood cultures and the plan would be to discharge tomorrow if no further elevated temperature or elevated WBC count. Coding Level of Care Code Acute Code for [facility] Diagnoses Encephalopathy acute G93.40 NSTEMI (non-ST elevated myocardial infarction) I21.4 Uremia N19 Hyponatremia E87.1 Polypharmacy Z79.899 Increased anion gap metabolic acidosis E87.29 Hyperglycemia R73.9 Type 2 diabetes mellitus with chronic kidney disease on chronic dialysis, unspecified whether exterminator termite insulin use E11.22; N18.6; Z99.2 Diabetes mellitus exterminator termite insulin use: unspecified exterminator termite insulin use status Diabetes mellitus complication status: with kidney complications Diabetes mellitus complication detail: with chronic kidney disease Chronic kidney disease stage: on chronic dialysis ESRD (end stage renal disease) N18.6 Essential hypertension I10 Hypertension type: essential hypertension Other congestive heart failure I50.9 Heart failure type: other History of coronary artery stent placement Z95.5 Thrombocytopenia D69.6 Intractable back pain M54.9 Staphylococcus aureus bacteremia R78.81; B95.61 Ischemic cerebrovascular accident (CVA) due to global hypoperfusion with watershed infarction I63.9
[2024-12-23 11:50] VITALS: BP 124/55; PULSE 78; RESP 16; TEMP 36.7; O2SAT 94
[2024-12-23 11:59] LABS: Glucose Point of Care 249 mg/dL (70-110)
[2024-12-23] MEDS: VANCOMYCIN ADD-Vantage 750 MG in 0.9% NaCl ADD-Vantage 250 ML 250 MG IV (12:56)
[2024-12-23 16:00] VITALS: BP 140/68; PULSE 73; RESP 17; TEMP 37.1; O2SAT 96
--- NOTE | 2024-12-23 16:25 | PM.PN ---
Subjective Subjective: Infectious disease progress note. Tmax of 99.9 Fahrenheit. Leukocytosis slightly better at 12,000 today. Patient is alert awake, however appears to be pale mildly diaphoretic at the time of this exam. Medications: Reviewed: Yes Vitals/I&O/Wt Last Vital Signs Temp 98.1 F 12/23/24 11:50 Pulse 78 12/23/24 11:50 Resp 16 12/23/24 11:50 BP 124/55 12/23/24 11:50 Pulse Ox 94 12/23/24 11:50 O2 Del Method Room Air 12/23/24 11:50 O2 Flow Rate 1 12/23/24 04:00 12/23/24 12/23/24 12/23/24 06:59 14:59 22:59 Intake Total 490 / 490 Balance 490 / 490 Weight last 48 hrs Weight 114.305 kg Weight 116.074 kg Weight 117.344 kg Physical Exam Narrative: General: more alert and awake today HEENT: PERRLA, pupils bilaterally equal and reactive, pallors not present Chest: Normal vesicular breath sounds, no added sounds, equal good air entry bilaterally CVS: S1-S2 regular, no murmurs, no tachycardia, no gallops, no rubs Abdomen: Soft, nontender, no organomegaly, bowel sounds present EXT: rigth fem line and right SC CVC Right knee swelling noted , no cellulitis, TTP medial compartment Left hand swelling noted Data 12/23/24 05:37 12/23/24 05:37 Micro: Microbiology 12/21/24 12:45 Gram Stain - Final Synovial Fluid Anaerobic Culture - Preliminary Body Fluid Culture - Preliminary 12/22/24 03:16 Blood Culture - Preliminary Blood NEGATIVE TO DATE 12/22/24 03:13 Blood Culture - Preliminary Blood NEGATIVE TO DATE A&P Assessment and plan (1) Staphylococcus aureus bacteremia: 59-year-old male with ESRD on hemodialysis via right arm AV fistula admitted to the hospital with altered mental status and found to have Staph aureus bacteremia. Blood culture positive from December 12, 2024. Subsequent blood culture thus far is negative. Review of sensitivity reveals this to be MSSA Discontinue piperacillin/tazobactam and vancomycin Changed treatment to organism directed therapy with cefazolin 1 g IV every 24 hours in keeping with his impaired kidney function. Source of infection may be developing myositis versus abscess of the right deltoid as noted on the CTA of the extremities. Uncertain if this may be the primary problem or represent a secondary embolization. On examination there is a scab over the right deltoid, patient refused, telehealth if he had any injury over your site. He blanco owns several cats and statess that he may have scratched him at some point. Denies any recent intramuscular injections. No known history of IV drug use. Recently had presented with intractable back pain. CT of the lumbar spine without signs of osteomyelitis, discitis or epidural abscess. VJ taken today without any vegetations Right arm fistula site without any discernable abscess, small collection likely to represent hematoma vs seroma. No noted thrombosis. Dialysis fistula has reportedly not been accessible during hospital course, patient currently has a right femoral temp HD line. Also has right IJ central line placed during this admission. (2) Myositis: as above may be secondary embolization vs primary source does not appear to have any drainable collection small scab noted over area of involvement uncertain if there has been recent trauma at this site (3) Stroke: management per primary (4) ESRD (end stage renal disease): on maintainence HD , typically right arm fistula Plan 12/17/24: care plan [facility] hospitalist. Patient is contuning to be encephalopathic. Blood cx positive from 12/14. Leukocytosis improving, platelets improved. T bili rising up at 7.7 without signs of hemolysis. AST/ALT/ALP without significant elevation. US abdomen without any biliary dilattaion or GB changes. ? gilbert syndrome. Changed to cefazolin from zosyn/vanc on 12/15/24. continue same for now. Overall suspect staph aureus bacteremia with encephalopthay to be the cause of persisting symptoms. CT CAP on admission on 12/12 without any acute chest or abdominal sources of infection. Bartonella, tick panel remains pending. Started on presumptive doxycycline which can continue December 20, 2024 Mentation is slightly lower than last exam. He has recently seen resting however prefers to go back to sleep. Blood culture remains negative as of December 17, 2024. Last December 14, 2024 with MSSA. Currently on cefazolin 1 g IV every 24 hours. Consider removal of right femoral hemodialysis temporary catheter if his fistula is currently functioning. Additionally consider removal of right chest CVC as cefazolin can be timed with dialysis to 2 g 3 times a week. Doxycycline can be transition to oral if patient is able to tolerate oral intake.Interval development of right knee swelling- Check CT knee , comcern for septic arthritis. Obtain Duplex LUE to assess for any DVT. Will follow December 21, 2024 Improved mentation today, able to answer all orientation questions correctly and attempts to speak in small sentences in conversation. Very deconditioned overall. Blood cx from 12/17 remains negative however low grade fever noted at 99.8F. Check resp panel. check CXR. Recheck blood cx with am labs. CT knee completed yesterday shows Large RIGHT knee joint effusion with peripheral enhancement. This is new compared to exam last week, concerned about septic arthritis/seeding from MSSA. Consider orthopedic evaluation for [id number] fluid analysis, crystal analysis and culture to further assess. This may be the cause of low grade fever and WBC trend to 14K today. Hida scan raises concern for cholecystistis, denies any RUQ tenderness. December 22, 2024: More lethargic today thougha ble to answer all orientation questions. [place] [id number]. S/p synovial fluid analysis on 12/21/24, WBC count 3900, less likely septic joint, though patient has been on abx. Negative gram stain for organisms. Crystal analysis pending. CX pending. Order for removal of rigth SVC central line and right femoral line today. Dialysis ongoing via fistula. PEripheral iv access to be obtained today. CXR showing B/L infiltrates ? potential aspiration. repeat blood cx from yesterday is pending. Broaden abx to meropenem for additonal anerobic and gram negtaive coverage given infiltrates on CXR, concern for aspiration. 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 Add vancomycin empirically while pending results. no diarrhea or abdominal pain. Will follow December 23, 2024 Tmax of 99.9 Fahrenheit. Improving leukocytosis at 12,000 today.Continue meropenem and vancomycin today for possible aspiration pneumonia. Urine analysis not collected as patient has not voided. Blood culture from December 22, 2024 so far negative. Sign ovule fluid culture from the right knee remaining negative so far. Nasal MRSA screen is negative. Patient is awake, able to hold a conversation, however appearing to be pale and diaphoretic. Would continue broader spectrum antibiotics today with meropenem and vancomycin. If blood culture from 12/22 remains negative over the next 24 hours, anticipate discharge with cefazolin for 6 weeks as planned earlier. Short course of additional levofloxacin will be added at discharge. PDMP PDMP Reviewed: Not Reviewed Attestations Medical Necessity Statement*: per admitting Coding Level of Care Code Acute Code for [facility] Diagnoses Staphylococcus aureus bacteremia R78.81; B95.61 Myositis M60.9 Stroke I63.9 ESRD (end stage renal disease) N18.6
[2024-12-23 16:33] LABS: Glucose Point of Care 260 mg/dL (70-110)
[2024-12-23] MEDS: meropenem 1,000 mg SDV 1000 MG IVP (17:11)
[2024-12-23 19:54] VITALS: BP 140/62; PULSE 64; RESP 18; TEMP 36.8; O2SAT 90
[2024-12-23 20:38] LABS: Glucose Point of Care 251 mg/dL (70-110)
[2024-12-23 21:09] LABS: Bartonella Henselae IgG AB NEGATIVE; Bartonella Henselae IgM AB NEGATIVE; Bartonella Quintana IgG AB NEGATIVE; Bartonella Quintana IgM AB NEGATIVE
[2024-12-23] MEDS: atorvastatin 40 mg Tablet PO (21:24)
[2024-12-23] MEDS: latanoprost 0.005% Op Soln 2.5 mL Btl 1 DROP EYE-BOTH (21:26)
[2024-12-24] VITALS (7 sets, daily range): BP systolic 129–164; BP diastolic 59–76; PULSE 59–88; RESP 16–18; TEMP 36.7–37; O2SAT 90–94
[2024-12-24] MEDS: HYDROcodone-acetaminophen 10-325 mg Tablet 1 TAB PO ×2 (01:26→09:38)
[2024-12-24 04:58] LABS: Basophils % 0.1 %; Eosinophils # 0.3 10^3/uL (0.0-0.8); Eosinophils % 3.2 %; Hematocrit 25.9 % (37-53); Lymphocytes # 0.5 10^3/uL (0.8-4.8); Lymphocytes % 5.5 %; Mean Corpuscular HGB Conc 33.2 g/dL (30-55); Mean Corpuscular Volume 96.3 fl (82-101); Mean Platelet Volume 10.2 fL (7.4-10.4); Monocytes # 0.7 10^3/uL (0.2-0.9); Monocytes % 7.6 %; Neutrophils # 7.84 10^3/uL (1.8-7.7); Neutrophils % 82.9 %; Nucleated Red Blood Cells % 0 %; Platelet Count 190 10^3/cmm (157-399); Red Blood Count 2.69 10^6/uL (3.85-5.65); Red Cell Distribution Width 14.6 % (12.1-15.1); White Blood Count 9.46 10^3/uL (3.29-11.43)
[2024-12-24 05:26] LABS: Calcium 8.1 mg/dL (8.5-10.5); Carbon Dioxide 23 mmol/L (22-29); Chloride 86 mmol/L (98-107); Creatinine Clr Calc Pharmacy 14.6221; Glucose 212 mg/dL (65-115); Osmolality Calculated 295 mOsm/kg (285-295); Sodium 127 mmol/L (136-145)
[2024-12-24 05:29] LABS: Blood Urea Nitrogen 83 mg/dL (6-20)
[2024-12-24] MEDS: heparin 5,000 unit/mL INJ 1 mL 5000 UNIT SUBCUT (05:56)
[2024-12-24] MEDS: insulin glargine 100 units/1 mL 10 UNIT SUBCUT (05:56)
[2024-12-24 06:01] LABS: Glucose Point of Care 281 mg/dL (70-110)
[2024-12-24 06:20] LABS: Glucose Point of Care 241 mg/dL (70-110)
[2024-12-24] MEDS: aspirin 81 mg EC Tablet PO (09:38)
[2024-12-24] MEDS: citalopram 20 mg Tablet 10 MG PO (09:39)
[2024-12-24] MEDS: insulin lispro 100 unit/1 mL SUBCUT (09:40)
[2024-12-24] MEDS: dorzolamide/timolol Op Soln 10 mL Btl 1 DROP EYE-BOTH (09:41)
[2024-12-24] MEDS: heparin, porcine 1,000 unit/mL INJ 10 mL 10000 UNIT INTRACATH (09:41)
[2024-12-24] MEDS: brimonidine 0.2% Op Soln 5 mL Btl 1 DROP EYE-BOTH (09:41)
--- NOTE | 2024-12-24 10:08 | P.DS_ITS ---
Discharge Providers Date of Admission: 12/12/24 10:52 Date of Discharge: December 24, 2024 Attending Provider at Admission: José Luis Gonzalez MD Attending Provider at Discharge: Ana Espinoza MD Primary Care Provider: Sandy Kelly MD Diagnoses at Discharge Discharge Diagnosis (1) Staphylococcus aureus bacteremia: Status: Acute (2) Myositis: Status: Acute (3) Stroke: Status: Acute (4) ESRD (end stage renal disease): Status: Acute Reason for Visit Reason for Visit: BACK/HIP PAIN Hospital Course Hospital Course Kt Jett is a 59 year old male h/o CAD, CKD on [facility] MWF with a past medical history of complicated MSSA bacteremia in August 2020 at which time he was treated with IV antibiotics. This was thought to be related to his port, port was removed. Of note patient also had a history of MSSA bacteremia in 2018 where source remain undefined. In March 2022, he had MRSA osteomyelitis of the foot. He was admitted to the hospital on December 07, 2024 with intractable back pain. CT of the lumbar spine was performed without contrast which showed moderate to severe foraminal stenosis at L5-S1 due to osteophyte disease. He was discharged with recommendations to continue with spine surgery as outpatient, received a Decadron taper and prescription for opiates for pain management. He returned to the emergency room on December 12, 2024 with altered mental status. His blood culture returned positive for Staph aureus as part of the evaluation. He was in spetic shock needing levophed gtt. On 12/13 he complained of worsening vision, NIHSS was 5 at the time. He was not a candidate for TNKase as he was previously on heparin drip for NTSEMI. MRI of the brain ordered very small acute lacunar infarct in the left ortega radiata. He has a central line in place since admission placed in ER. Typically gets outpatient dialysis via fistula however during the hospital stay the fistula was noted to be malfunctioning therefore he has a temp HD cath in place over the [facility]. He is s/p VJ today which ruled out any vegetations or other sins of endocarditis. He is seen shortly after VJ , still somehwat sedated and unable to participate in history taking. no signs of osteomyelitis, discitis or epidural abscess were noted oand n CT spine. Right arm fistula site underwent US exam and was followed up with CTA of the extremity to rule out any abscess associated with the fistula- this showed a seroma vs hematoma but no abscess. Incidentally noted developing myositis of the right deltoid and devloping abscess. 12/17/24: care plan discussed iw hospitalist. Patient is contuning to be encephalopathic. Blood cx positive from 12/14. Leukocytosis improving, platelets improved. T bili rising up at 7.7 without signs of hemolysis. AST/ALT/ALP without significant elevation. US abdomen without any biliary dilattaion or GB changes. ? gilbert syndrome. Changed to cefazolin from zosyn/vanc on 12/15/24. continue same for now. Overall suspect staph aureus bacteremia with encephalopthay to be the cause of persisting symptoms. CT CAP on admission on 12/12 without any acute chest or abdominal sources of infection. Bartonella, tick panel remains pending. Started on presumptive doxycycline which can continue December 20, 2024 Mentation is slightly lower than last exam. He has recently seen resting h owever prefers to go back to sleep. Blood culture remains negative as of December 17, 2024. Last December 14, 2024 with MSSA. Currently on cefazolin 1 g IV every 24 hours. Consider removal of right femoral hemodialysis temporary catheter if his fistula is currently functioning. Additionally consider removal of right chest CVC as cefazolin can be timed with dialysis to 2 g 3 times a week. Doxycycline can be transition to oral if patient is able to tolerate oral intake.Interval development of right knee swelling- Check CT knee , comcern for septic arthritis. Obtain Duplex LUE to assess for any DVT. Will follow December 21, 2024 Improved mentation today, able to answer all orientation questions correctly and attempts to speak in small sentences in conversation. Very deconditioned overall. Blood cx from 12/17 remains negative however low grade fever noted at 99.8F. Check resp panel. check CXR. Recheck blood cx with am labs. CT knee completed yesterday shows Large RIGHT knee joint effusion with peripheral enhancement. This is new compared to exam last week, concerned about septic arthritis/seeding from MSSA. Consider orthopedic evaluation for [id number] fluid analysis, crystal analysis and culture to further assess. This may be the cause of low grade fever and WBC trend to 14K today. Hida scan raises concern for cholecystistis, denies any RUQ tenderness. December 22, 2024: More lethargic today thougha ble to answer all orientation questions. [place]rile [place] [address]. S/p synovial fluid analysis on 12/21/24, WBC count 3900, less likely septic joint, though patient has been on abx. Negative gram stain for organisms. Crystal analysis pending. CX pending. Order for removal of rigth SVC central line and right femoral line today. Dialysis ongoing via fistula. PEripheral iv access to be obtained today. CXR showing B/L infiltrates ? potential aspiration. repeat blood cx from yesterday is pending. Broaden abx to meropenem for additonal anerobic and gram negtaive coverage given infiltrates on CXR, concern for aspiration. 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 Add vancomycin empirically while pending results. no diarrhea or abdominal pain. Will follow December 23, 2024 Tmax of 99.9 Fahrenheit. Improving leukocytosis at 12,000 today.Continue meropenem and vancomycin today for possible aspiration pneumonia. Urine a nalysis not collected as patient has not voided. Blood culture from December 22, 2024 so far negative. Sign ovule fluid culture from the right knee remaining negative so far. Nasal MRSA screen is negative. Patient is awake, able to hold a conversation, however appearing to be pale and diaphoretic. Would continue broader spectrum antibiotics today with meropenem and vancomycin. If blood culture from 12/22 remains negative over the next 24 hours, anticipate discharge with cefazolin for 6 weeks as planned earlier. Short course of additional levofloxacin will be added at discharge. December 24, 2024 Leukocytosis now resolved. Afebrile. With expansion of spectrum, patient's leukocytosis and fever resolved. Likely this may have been related to aspiration pneumonia. Blood cx from 12/22 remains negative thus far. Recommend discharge on Cefazolin 2 g iv after diaylsis as already planned for 6 weeks. Short course of additional Levaofloxacin and linezolid presumptively for 5 days. Weekly CBC, creat. LFT while on cefazolin to be followed by ID clinic. F/up in Clinic on January 11, 2025 at 12pm. Patient was discharged after discussion with infectious disease. Patient has been afebrile in the last 24 hours. He will go with IV antibiotics and follow- up in clinic with ID going forward. Physical Exam Narrative: GEN: nad, HEAD: normocephalic, atraumatic EYES: eyes are closed HEENT: mmm NECK: no jvd CV: rrr LUNGS: diminished BS ABD: soft, nt, nd EXT: NO LE edema NEURO: lethargic SKIN: no rash Discharge Data Studies Completed and Pending Completed Studies During Hospitalization Category Date Time Status CT abdomen pelvis wo con 11874 Stat Cat Scan 12/12/24 11:[address] angio chest PE protcl [id number] Stat Cat Scan 12/12/24 11:[address] angio head neck [CT angio headneck* 64764/88055] Cat Scan 12/13/24 12:[address] angio upper extremity right [[place] [address]] Cat Scan 12/14/24 12:[address] cervical spine w con [id number] Routine Cat Scan 12/14/24 08:[address] head wo con* 68834 Stat Cat Scan 12/12/24 11:[address] head wo con* [id number] Stat Cat Scan 12/13/24 12:[address] head wo con* 76527 Stat Cat Scan 12/16/24 10:[address] knee RT w con 21506 Routine Cat Scan 12/20/24 08:[address] lumbar spine w con 85385 Routine Cat Scan 12/14/24 08:[address] thoracic spine w con [id number] Routine Cat Scan 12/14/24 08:00 Completed CXRP [XR chest 1V portable 97516] Routine Exams 12/21/24 10:20 Completed FL guided lumbarpunc dx* [id number] Routine Exams 12/17/24 07:40 Completed XR chest 1V portable [id number] Stat Exams 12/12/24 09:35 Completed XR chest 1V portable [id number] Stat Exams 12/12/24 13:04 Completed MR head wo con* [id number] Routine MRI 12/13/24 12:23 Completed NM hepatobiliary w phar* 74152 Routine Nuc Med 12/20/24 11:10 [place] [id number] Stat Ultrasound 12/13/24 11:40 Completed CV. echo transesophageal 90246 Routine Ultrasound 12/15/24 12:14 Completed CV. echo wo/w contrast 62937 Stat Ultrasound 12/12/24 11:33 Completed US abdomen complete* 07809 Stat Ultrasound 12/15/24 07:39 Completed US misc vascular [CV unlisted vascular 62233] Routine Ultrasound 12/13/24 18:43 Completed US misc vascular [CV unlisted vascular 25110] Routine Ultrasound 12/15/24 08:00 Completed US venous duplex lower extremity bilat [CV venous Ultrasound 12/22/24 10:41 [place] [address]] Routine US venous duplex upper extremity LT [CV venous duplex Ultrasound 12/20/24 08:22 [place] [address]] Routine Pending at discharge Category Date Time Status Anaerobic Culture Routine Lab 12/21/24 12:45 Results Bartonella Species AB(IgG,IgM) Routine Lab 12/16/24 13:07 Results Bartonella lomas AB R/Titer Routine Lab 12/17/24 15:22 Results Basic Metabolic Panel AM LABS Lab 12/25/24 04:00 Ordered Blood Culture AM LABS Lab 12/22/24 03:16 Results Body Fluid Culture & GS Routine Lab 12/21/24 12:45 Results CSF Analysis + Cell Count Stat Lab 12/17/24 11:50 Uncollected CSF Culture & Gram Stain Stat Lab 12/17/24 11:50 Uncollected CSF Culture Stat Lab 12/17/24 11:50 Uncollected Complete Blood Count w/Auto AM LABS Lab 12/25/24 04:00 Ordered Glucose CSF Routine Lab 12/17/24 11:50 Uncollected Total Protein CSF Routine Lab 12/17/24 11:50 Uncollected VDRL on CSF Stat Lab 12/17/24 11:50 Uncollected Radiology Impressions Abdomen/Pelvis CT 12/12/24 11:33 IMPRESSION: 1. Stable bilateral benign renal cysts 2. Hepatomegaly 3. Severe lumbar spine osteoarthritis and levoscoliosis. 4. Diffuse sigmoid colon diverticulosis Chest CTA 12/12/24 11:33 IMPRESSION: 1. Suboptimal contrast density within the pulmonary arteries small pulmonary emboli can not be ruled out. Consider nuclear medicine perfusion scan. 2. Heavy coronary artery calcifications. 3. Right lower lobe parenchymal density probable atelectasis. 3. Eventration of the right hemidiaphragm. Head MRI 12/13/24 12:23 IMPRESSION: 1. Very small acute lacunar infarcts in the LEFT ortega radiata. These may be along the watershed distribution between arterial territories. No hemorrhage. 2. Otherwise mild cerebral and cerebellar volume loss and atrophy. Head/Neck CTA 12/13/24 12:23 IMPRESSION: 1. No significant cervical ICA stenosis. 2. Moderate to advanced intracranial atheromatous disease with segmental narrowing appears advanced for patient this age. 3. Dense cavernous carotid calcification. 4. Moderate to severe segmental stenosis involving the [employer] territories bilaterally RIGHT greater than LEFT. Basilar artery remains patent. Distal vessels appear patent Cervical Spine CT 12/14/24 08:00 IMPRESSION: 1. Moderate spondylitic changes. 2. No evidence of discitis or osteomyelitis. 3. No evidence of epidural abscess Lumbar Spine CT 12/14/24 08:00 IMPRESSION: 1. No evidence of discitis/osteomyelitis. No evidence of epidural abscess. 2. Advanced spondylitic changes stable since 12/07/[address] 12/14/24 08:00 IMPRESSION: 1. No acute thoracic spine findings Upper Extremity CTA 12/14/24 12:56 IMPRESSION: 1. There is diffuse edema of the deltoid concerning for myositis.. A collection of gas bubbles and low-attenuation material suggests developing abscess along the deep margin of the deltoid. 2. Patent right upper extremity arteriovenous fistula. There is a 1.9 cm low-attenuation collection posterior to the proximal aspect of the venous outflow which could be a small seroma or hematoma. No regional inflammatory change. 3. Right lower lobe airspace opacity is concerning for pneumonia. 4. Degenerative change noted in the right shoulder with findings including os acromiale. Abdomen Ultrasound 12/15/24 07:39 IMPRESSION: Technically difficult study due to bowel gas and body habitus. 1. Hepatomegaly. Nodular capsular contour suspicious for cirrhosis. 2. No ascites. 3. Tiny calculus or sludge ball in the gallbladder. No gallbladder wall thickening or pericholecystic fluid seen today. 4. Normal common bile duct measuring 5 mm. 5. No hydronephrosis in the RIGHT kidney. 6. Small simple cyst RIGHT kidney Vascular Ultrasound 12/15/24 08:00 IMPRESSION: Patent arteriovenous fistula. Head CT 12/16/24 10:15 IMPRESSION: 1. No evidence of intracranial hemorrhage or mass effect. 2. No acute intracranial findings. Lumbar Puncture Fluoroscopy 12/17/24 07:40 IMPRESSION: Unable to achieve access into the subarachnoid space for CSF. Knee CT 12/20/24 08:22 IMPRESSION: 1. Large RIGHT knee joint effusion with peripheral enhancement. Septic joint is not excluded. 2. Extensive arterial vascular calcifications. 3. Advanced degenerative changes in the lateral compartment. 4. No osteolysis or fracture. Hepatobiliary Scan Nuclear Medicine 12/20/24 11:10 IMPRESSION: 1. No cystic or common bile duct obstruction identified. 2. The gallbladder did not contract. May be related to chronic cholecystitis or dyskinesia. This may be of falsely positive study as the patient does have numerous sedatives ordered and this may be affecting contractility of the gallbladder. Chest X-Ray 12/21/24 10:20 IMPRESSION: 1. Hypoaeration of the lungs with bibasilar opacities, increased on the left compared to prior radiograph, may be due to atelectasis and/or infectious/inflammatory process. 2. Stable cardiomegaly. Laboratory Results WBC 9.46 10^3/uL (3.29-11.43) 12/24/24 04:50 RBC 2.69 10^6/uL (3.85-5.65) L 12/24/24 04:50 Hgb 8.60 g/dL (11.27-16.99) L 12/24/24 04:50 Hct 25.9 % (37-53) L 12/24/24 04:50 MCV 96.3 fl (82-101) 12/24/24 04:50 MCH 32.0 pg (27-33) 12/24/24 04:50 MCHC 33.2 g/dL (30-55) 12/24/24 04:50 RDW 14.6 % (12.1-15.1) 12/24/24 04:50 Plt Count 190 10^3/cmm (157-399) 12/24/24 04:50 MPV 10.2 fL (7.4-10.4) 12/24/24 04:50 Neut % (Auto) 82.9 % 12/24/24 04:50 Lymph % (Auto) 5.5 % 12/24/24 04:50 [place] % (Auto) 7.6 % 12/24/24 04:50 Eos % (Auto) 3.2 % 12/24/24 04:50 Baso % (Auto) 0.1 % 12/24/24 04:50 Neut # (Auto) 7.84 10^3/uL (1.8-7.7) H 12/24/24 04:50 Lymph # (Auto) 0.5 10^3/uL (0.8-4.8) L 12/24/24 04:50 [place] # (Auto) 0.7 10^3/uL (0.2-0.9) 12/24/24 04:50 Eos # (Auto) 0.3 10^3/uL (0.0-0.8) 12/24/24 04:50 Baso # (Auto) 0.0 10^3/uL (0.0-0.1) 12/24/24 04:50 Nucleated RBC % (auto) 0 % 12/24/24 04:50 Nucleated RBCs # 0.0 /100WBC 12/24/24 04:50 Peripher Smr Path Cons Sent for review 12/12/24 09:59 ESR 47 mm/hr (0-10) H 12/12/24 09:59 PT 15.50 SECONDS (12.1-14.9) H 12/15/24 04:07 INR 1.15 (0.8-1.2) 12/15/24 04:07 APTT 53.8 SECONDS (23.9-36.7) H 12/14/24 12:23 D-Dimer 6.22 ug/mLFEU (0-0.59) H 12/12/24 15:52 Specimen Type Arterial 12/12/24 09:41 Sample Site Brachial, left 12/12/24 09:41 ABG pH 7.43 (7.35-7.45) 12/12/24 09:41 ABG pCO2 34.7 mmHg (35-45) L 12/12/24 09:41 ABG pO2 72.5 mmHg (80.0-100.0) L 12/12/24 09:41 ABG PO2/FiO2 Ratio 226 12/12/24 09:41 ABG HCO3 23.2 mmol/L (22-26) 12/12/24 09:41 ABG O2 Saturation 93.4 12/12/24 09:41 ABG Base Excess -0.5 mmol/L (-2.0-2.0) 12/12/24 09:41 Eliazar Test N/a 12/12/24 09:41 A-a O2 Gradient 14.4 mmHg (5-10) H 12/12/24 09:41 Hematocrit 42.6 % (42-52) 12/12/24 09:41 Hgb O2 Saturation 91.6 % (95-100) L 12/12/24 09:41 Carboxyhemoglobin 1.1 %THgb (0.4-20.1) 12/12/24 09:41 Methemoglobin 0.8 % (0.4-1.5) 12/12/24 09:41 Total Hemoglobin 13.9 g/dL (14-18) L 12/12/24 09:41 Sodium 127.0 mmol/L (131-143) L 12/12/24 09:41 Potassium 5.1 mmol/L (3.5-5.0) H 12/12/24 09:41 Glucose 346.0 mg/dL (70-115) H 12/12/24 09:41 Ionized Calcium 1.1 mmol/L (1.1-1.4) 12/12/24 09:41 O2 Delivery Device Nc 12/12/24 09:41 O2 Liters/Min 3.0 % 12/12/24 09:41 FiO2 32.0 % 12/12/24 09:41 Metal Fabricating Inspector ID Amh 12/12/24 09:41 Sodium 127 mmol/L (136-145) L 12/24/24 04:50 Potassium 5.0 mmol/L (3.5-5.1) 12/24/24 04:50 Chloride 86 mmol/L (98-107) L 12/24/24 04:50 Carbon Dioxide 23 mmol/L (22-29) 12/24/24 04:50 Anion Gap 23.0 (5-19) H 12/24/24 04:50 BUN 83 mg/dL (6-20) H* 12/24/24 04:50 Creatinine 7.1 mg/dL (0.7-1.2) H* 12/24/24 04:50 GFR Calculation 8.0 mL/min (90-130) L 12/24/24 04:50 Glucose 212 mg/dL (65-115) H 12/24/24 04:50 POC Glucose 241 mg/dL (70-110) H 12/24/24 06:12 Estimat Average Glucose 177 12/12/24 09:59 Hemoglobin A1c 7.8 % (4.0-6.0) H 12/12/24 09:59 Calculated Osmolality 295 mOsm/kg (285-295) 12/24/24 04:50 Lactic Acid 2.2 mmol/L (0.5-2.2) 12/12/24 09:59 Lactic Acid (Sepsis) 3.1 mmol/L (0.5-2.2) H 12/12/24 13:33 Lactate 1.2 mmol/L (0.5-2.2) 12/15/24 04:07 Uric Acid 6.1 mg/dL (3.4-7.0) 12/21/24 03:12 Calcium 8.1 mg/dL (8.5-10.5) L 12/24/24 04:50 Phosphorus 5.5 mg/dL (2.5-4.5) H 12/15/24 04:07 Magnesium 2.3 mg/dL (1.7-2.3) 12/15/24 04:07 Total Bilirubin 3.2 mg/dL (0.15-1.2) H 12/22/24 03:16 Direct Bilirubin 6.40 mg/dL (0.00-0.30) H 12/17/24 03:51 Indirect Bilirubin 1.30 12/17/24 03:51 GGT 148 U/L (8-61) H 12/17/24 03:51 AST 61 U/L (0-40) H 12/22/24 03:16 ALT < 5 U/L (0-41) 12/22/24 03:16 Alkaline Phosphatase 290 U/L (40-130) H 12/22/24 03:16 Ammonia 22 umol/L (16-60) 12/15/24 08:03 Creatine Kinase 64 U/L (39-308) 12/15/24 04:07 Troponin T Baseline 260 ng/L (0-15) H* 12/12/24 09:59 Troponin T 120 Minute 248.6 ng/L (0-15) H 12/12/24 11:49 Delta Troponin T -11.4 ABS# (0-10) L 12/12/24 11:49 C-Reactive Protein 185.2 mg/L (0.0-4.9) H 12/15/24 04:07 NT-Pro-B Natriuret Pep > 81283 pg/mL (0-125) H 12/15/24 04:07 Total Protein 6.1 g/dL (6.6-8.7) L 12/22/24 03:16 Albumin 2.1 g/dL (3.5-5.2) L 12/22/24 03:16 Globulin 4.0 g/dL (1.3-4.6) 12/22/24 03:16 Lipase 35 U/L (13-60) 12/17/24 03:51 Procalcitonin 4.41 ng/mL (0-0.5) H 12/15/24 04:07 TSH 1.22 uIU/mL (0.27-4.20) 12/12/24 09:59 Fluid Crystals Sent for path review 12/21/24 12:45 Synovial Color Yellow (PALE YELLOW) 12/21/24 12:45 Synovial Appearance Cloudy (CLEAR) 12/21/24 12:45 Synovial WBC 3968 /uL (0-150) H 12/21/24 12:45 Synovial RBC 1 10^3/uL (0-0) H 12/21/24 12:45 Synovial Mononuclear 1.283 10^3/uL 12/21/24 12:45 Synov Polynuclear WBCs 2.685 10^3/uL 12/21/24 12:45 Synovial Other Cells Not Reportable 12/21/24 12:45 Synovial Polynuclear % 67.700 % 12/21/24 12:45 Synovial Mononuclear % 32.300 % 12/21/24 12:45 Nasal MRSA (PCR) Not detected (Negative) 12/21/24 10:15 Random Vancomycin 9.8 ug/mL (20.0-40.0) L 12/23/24 05:37 Salicylates < 0.3 mg/dL (3-10) L 12/12/24 09:59 Acetaminophen < 5.0 ug/mL (10-30) L 12/12/24 09:59 Ethyl Alcohol < 10 mg/dL (0-10) 12/12/24 11:49 Serum Ketones Negative (Negative) 12/12/24 09:59 Adenovirus (PCR) Not detected (NOT DETECT) 12/21/24 11:10 Bartonella Source csf 12/17/24 15:22 Bartonella henselae IgG Negative 12/14/24 05:00 Bartonella henselae IgG Negative 12/14/24 05:00 Bartonella henselae IgM Negative 12/14/24 05:00 Bartonella henselae DNA Not detected 12/17/24 15:22 Bartonella lomas IgG Negative 12/17/24 15:22 Bartonella lomas IgM Negative 12/17/24 15:22 Bartonella lomas PCR Not detected 12/17/24 15:22 Lyme Ab (Western Blot) <0.90 index 12/17/24 03:51 C. pneumoniae DNA (PCR) Not detected (NOT DETECT) 12/21/24 11:10 Coronavirus 229E (PCR) Not detected (NOT DETECT) 12/21/24 11:10 E. chaffeensis IgG Ab <1:64 12/17/24 03:51 E. chaffeensis IgM Ab <1:20 12/17/24 03:51 E. chaffeensis Interp See note 12/17/24 03:51 E. chaffeensis Comment Not Reportable 12/17/24 03:51 Human Metapneumovir PCR Not detected (NOT DETECT) 12/21/24 11:10 Influenza A (H1) PCR Not detected (NOT DETECT) 12/21/24 11:10 Influ A (H1/09) PCR Not detected (NOT DETECT) 12/21/24 11:10 Influenza A (H3) PCR Not detected (NOT DETECT) 12/21/24 11:10 Influenza Type A (PCR) Not detected (NOT DETECT) 12/21/24 11:10 Influenza Type B (PCR) Not detected (NOT DETECT) 12/21/24 11:10 Leptospira Source blood 12/17/24 03:51 Leptospira DNA (PCR) Not detected 12/17/24 03:51 M. pneumoniae (PCR) Not detected (NOT DETECT) 12/21/24 11:10 Parainfluenza 1 (PCR) Not detected (NOT DETECT) 12/21/24 11:10 Parainfluenza 2 (PCR) Not detected (NOT DETECT) 12/21/24 11:10 Parainfluenza 3 (PCR) Not detected (NOT DETECT) 12/21/24 11:10 Parainfluenza 4 (PCR) Not detected (NOT DETECT) 12/21/24 11:10 RSV Type A (PCR) Not detected (NOT DETECT) 12/21/24 11:10 RSV Type B (PCR) Not detected (NOT DETECT) 12/21/24 11:10 Entero/Rhino (PCR) Not detected (NOT DETECT) 12/21/24 11:10 Rickettsia IgG Ab Not detected 12/17/24 03:51 Rickettsia IgM Ab Not detected 12/17/24 03:51 SARS-CoV-2 (PCR) Not detected (NOT DETECT) 12/21/24 11:10 Path Cons w/Slide Yes 12/21/24 12:45 Vitals Last Vital Signs Temp 98.6 F 12/24/24 08:10 Pulse 60 12/24/24 08:10 Resp 18 12/24/24 08:10 BP 158/65 12/24/24 08:10 Pulse Ox 91 12/24/24 07:44 O2 Del Method Nasal Cannula 12/24/24 07:44 O2 Flow Rate 1 12/24/24 04:00 Discharge Plan Discharge Patient Disposition: Xfer SNF Condition: Stable Prescriptions: New atorvastatin 40 mg Tablet 40 mg PO BEDTIME Qty: 30 0RF aspirin 81 mg Tablet,Delayed Release (Dr/Ec) 81 mg PO DAILY Qty: 30 0RF levofloxacin 750 mg tablet 750 mg PO Q48H 5 Days Qty: 3 0RF linezolid 600 mg tablet 600 mg PO BID 5 Days Qty: 10 0RF Continued (DME) Diabetic shoes with Accomadative Insoles See Rx Instructions .Route .MEDSUPPLY Qty: 1 0RF Rx Instructions: As directed by HOME citalopram 10 mg tablet 10 mg PO DAILY latanoprost 0.005 % drops 1 drp ophthalmic (eye) DAILY (DME) Discontinue Dressing Changes See Rx Instructions .Route .MEDSUPPLY Qty: 1 0RF Rx Instructions: Please discontinue dressing changes as patient is healed. Thank you pantoprazole 40 mg Tablet,Delayed Release (Dr/Ec) 40 mg PO DAILY B complex-vitamin C-folic acid 0.8 mg Tablet 1 tab PO DAILY RenaPlex-D 800 mcg-12.5 mg -2,000 unit tablet 1 tab PO DAILY polyethylene glycol 3350 [Miralax] 17 gram/dose powder 4 g PO DAILY Qty: 238 0RF dorzolamide-timolol 22.3-6.8 mg/mL drops 1 drp ophthalmic (eye) BID lanthanum 1,000 mg Tablet,Chewable 750 mg PO TID Rx Instructions: administer with food; chew thoroughly before swallowing naloxone [Narcan] 4 mg/actuation spray,non-aerosol 4 mg intranasal Q2M PRN (Reason: opioid overdose) Qty: 2 0RF Rx Instructions: spray 1 dose into ONE nostril; alternate nostrils w each dose until help arrives bisacodyl [Dulcolax (bisacodyl)] 10 mg Suppository 10 mg MI DAILY PRN (Reason: Constipation) Discontinued amlodipine 5 mg tablet 5 mg PO DAILY Qty: 90 3RF minoxidil 2.5 mg tablet 5 mg PO BID insulin degludec [Tresiba FlexTouch U-100] 100 unit/mL (3 mL) insulin pen 20 unit SUBCUT DAILY hydralazine 10 mg Tablet 10 mg PO Q6H 30 Days Qty: 120 0RF clonidine HCl 0.1 mg Tablet 0.1 mg PO BID PRN (Reason: for sbp>180 or dbp>100) 30 Days Qty: 60 0RF carvedilol 6.25 mg tablet 12.5 mg PO BID Qty: 180 3RF Rx Instructions: must administer with a meal/food dexamethasone 6 mg tablet 6 mg PO DAILY 5 Days Qty: 5 0RF lidocaine 5 % adhesive patch,medicated 1 patch topical Q24H PRN (Reason: pain) 7 Days Qty: 7 0RF Rx Instructions: leave on most painful area for up to 12 hrs hydrocodone-acetaminophen 10-325 mg Tablet 1 - 2 tab PO Q8H PRN (Reason: pain) 3 Days Qty: 18 0RF Rx Instructions: 2 tabs for severe pain maximum 6 tabs a day naproxen 500 mg tablet 500 mg PO BID PRN (Reason: pain) 7 Days Qty: 14 0RF Fleet Enema 19-7 gram/118 mL Enema 118 ml MI DAILY PRN (Reason: Constipation) No Action insulin glargine [Lantus U-100 Insulin] 100 unit/mL solution 15 unit SUBCUT QAM cyclobenzaprine 10 mg tablet 10 mg PO TID furosemide [Lasix] 40 mg tablet 40 mg PO BID doxazosin [Cardura] 1 mg tablet 2 mg PO DAILY isosorbide mononitrate 20 mg tablet 60 mg PO BID Rx Instructions: give doses 7 hrs apart hydralazine 25 mg tablet 10 mg PO QID amlodipine 5 mg tablet 10 mg PO QDAY hydrocodone-acetaminophen 10-325 mg tablet 1 tab PO Q6H PRN metoprolol tartrate 50 mg tablet 50 mg PO BID Fleet Enema 19-7 gram/118 mL enema 118 ml MI DAILY PRN nitroglycerin [Nitrostat] 0.4 mg tablet, sublingual 0.4 mg sublingual Q5M PRN Rx Instructions: do not exceed 3 doses per episode folic acid 1 mg tablet 1 mg PO DAILY insulin lispro [Humalog U-100 Insulin] 100 unit/mL solution See Rx Instructions .ROUTE .COMPLEX Rx Instructions: Inject 4 units, subcut, 3 times daily, after meals, based on low-dose insulin sliding scale losartan 100 mg tablet 100 mg PO DAILY duloxetine 60 mg capsule,delayed release(DR/EC) 60 mg PO DAILY sevelamer carbonate [Renvela] 800 mg tablet 800 mg PO TID Rx Instructions: must administer with a meal/food cholecalciferol (vitamin D3) [Dialyvite Vitamin D3 Max] 1,250 mcg (50,000 unit) tablet 1,250 mcg PO .Weekly cyanocobalamin (vitamin B-12) 1,000 mcg/mL kit 1,000 mcg IM .3 times weekly insulin degludec [Tresiba FlexTouch U-100] 100 unit/mL (3 mL) insulin pen 30 unit SUBCUT DAILY cefazolin 2 gram recon soln 2 g IV .3 times a week Discharge Orders: Discharge Order (Routine); Ordered 12/24/24 Ordered By: Ana Espinoza Referrals: Infectious Disease Group [facility] [Provider Group, Infectious Disease] - 01/11/25 12:00 pm [facility] - [Outside] [facility] [Outside] Sandy Kelly MD [Primary Care Provider, Internal Medicine] - 4-7 days Discharge Diet: As Directed Patient Instructions: Opioid Safety Discharge Attestations Time Spent in Discharge Care*: less than 30 min Status at Discharge: Cognitive status at discharge: cognitively intact , Behavioral status at discharge: cooperative , Quality Metrics Clinical Quality Measures [ No reported AMI, CVA or VTE this stay] Coding Level of Care Code Acute Code for g Fwd Diagnoses Staphylococcus aureus bacteremia R78.81; B95.61 Myositis M60.9 Stroke I63.9 ESRD (end stage renal disease) N18.6
--- NOTE | 2024-12-24 10:16 | PC.SOCIAL ---
IMM Updated Updated pt on IMM. No questions voiced. Provided pt a copy. Initialed, dated, & timed copy in chart.
--- NOTE | 2024-12-24 10:39 | PC.SLP ---
Pt currently in dialysis. Pt has d/c summary started.
[2024-12-24 11:27] LABS: Glucose Point of Care 152 mg/dL (70-110)
[2024-12-24 11:52] LABS: SARS Covid-2 Antigen Negative (Negative)
--- NOTE | 2024-12-24 13:10 | P.PN_ITS ---
Subjective 2 Subjective: Infectious disease progress note c/o genralized aches and pains Seen on dialysis Awake and oriented, overall deconditioned. Medications: Reviewed: Yes Vitals/I&O/Wt Last Vital Signs Temp 98.0 F 12/24/24 11:55 Pulse 60 12/24/24 12:24 Resp 18 12/24/24 11:55 BP 140/65 12/24/24 11:55 Pulse Ox 90 12/24/24 12:24 O2 Del Method Room Air 12/24/24 12:24 O2 Flow Rate 1 12/24/24 04:00 12/23/24 12/24/24 12/24/24 22:59 06:59 14:59 Intake Total 120 / 610 300 / 300 Output Total 2300 / 2300 Balance 120 / 610 -1999 / -1999 Weight last 48 hrs Weight 114.8 kg Weight 117.084 kg Weight 114.305 kg Weight 116.074 kg Physical Exam 2 Narrative: General: more alert and awake today HEENT: PERRLA, pupils bilaterally equal and reactive, pallors not present Chest: Normal vesicular breath sounds, no added sounds, equal good air entry bilaterally CVS: S1-S2 regular, no murmurs, no tachycardia, no gallops, no rubs Abdomen: Soft, nontender, no organomegaly, bowel sounds present Data 12/24/24 04:50 12/24/24 04:50 Micro: Microbiology 12/21/24 12:45 Gram Stain - Final Synovial Fluid Anaerobic Culture - Preliminary Body Fluid Culture - Preliminary A&P Assessment and plan (1) Staphylococcus aureus bacteremia: 59-year-old male with ESRD on hemodialysis via right arm AV fistula admitted to the hospital with altered mental status and found to have Staph aureus bacteremia. Blood culture positive from December 12, 2024. Subsequent blood culture thus far is negative. Review of sensitivity reveals this to be MSSA Discontinue piperacillin/tazobactam and vancomycin Changed treatment to organism directed therapy with cefazolin 1 g IV every 24 hours in keeping with his impaired kidney function. Source of infection may be developing myositis versus abscess of the right deltoid as noted on the CTA of the extremities. Uncertain if this may be the primary problem or represent a secondary embolization. On examination there is a scab over the right deltoid, patient refused, telehealth if he had any injury over your site. He blanco owns several cats and statess that he may have scratched him at some point. Denies any recent intramuscular injections. No known history of IV drug use. Recently had presented with intractable back pain. CT of the lumbar spine without signs of osteomyelitis, discitis or epidural abscess. VJ taken today without any vegetations Right arm fistula site without any discernable abscess, small collection likely to represent hematoma vs seroma. No noted thrombosis. Dialysis fistula has reportedly not been accessible during hospital course, patient currently has a right femoral temp HD line. Also has right IJ central line placed during this admission. (2) Myositis: as above may be secondary embolization vs primary source does not appear to have any drainable collection small scab noted over area of involvement uncertain if there has been recent trauma at this site (3) Stroke: management per primary (4) ESRD (end stage renal disease): on maintainence HD , typically right arm fistula Plan 12/17/24: care plan discussed iw hospitalist. Patient is contuning to be encephalopathic. Blood cx positive from 12/14. Leukocytosis improving, platelets improved. T bili rising up at 7.7 without signs of hemolysis. AST/ALT/ALP without significant elevation. US abdomen without any biliary dilattaion or GB changes. ? gilbert syndrome. Changed to cefazolin from zosyn/vanc on 12/15/24. continue same for now. Overall suspect staph aureus bacteremia with encephalopthay to be the cause of persisting symptoms. CT CAP on admission on 12/12 without any acute chest or abdominal sources of infection. Bartonella, tick panel remains pending. Started on presumptive doxycycline which can continue December 20, 2024 Mentation is slightly lower than last exam. He has recently seen resting however prefers to go back to sleep. Blood culture remains negative as of December 17, 2024. Last December 14, 2024 with MSSA. Currently on cefazolin 1 g IV every 24 hours. Consider removal of right femoral hemodialysis temporary catheter if his fistula is currently functioning. Additionally consider removal of right chest CVC as cefazolin can be timed with dialysis to 2 g 3 times a week. Doxycycline can be transition to oral if patient is able to tolerate oral intake.Interval development of right knee swelling- Check CT knee , comcern for septic arthritis. Obtain Duplex LUE to assess for any DVT. Will follow December 21, 2024 Improved mentation today, able to answer all orientation questions correctly and attempts to speak in small sentences in conversation. Very deconditioned overall. Blood cx from 12/17 remains negative however low grade fever noted at 99.8F. Check resp panel. check CXR. Recheck blood cx with am labs. CT knee completed yesterday shows Large RIGHT knee joint effusion with peripheral enhancement. This is new compared to exam last week, concerned about septic arthritis/seeding from MSSA. Consider orthopedic evaluation for [id number] fluid analysis, crystal analysis and culture to further assess. This may be the cause of low grade fever and WBC trend to 14K today. Hida scan raises concern for cholecystistis, denies any RUQ tenderness. December 22, 2024: More lethargic today thougha ble to answer all orientation questions. [place] [address]. S/p synovial fluid analysis on 12/21/24, WBC count 3900, less likely septic joint, though patient has been on abx. Negative gram stain for organisms. Crystal analysis pending. CX pending. Order for removal of rigth SVC central line and right femoral line today. Dialysis ongoing via fistula. PEripheral iv access to be obtained today. CXR showing B/L infiltrates ? potential aspiration. repeat blood cx from yesterday is pending. Broaden abx to meropenem for additonal anerobic and gram negtaive coverage given infiltrates on CXR, concern for aspiration. 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 Add vancomycin empirically while pending results. no diarrhea or abdominal pain. Will follow December 23, 2024 Tmax of 99.9 Fahrenheit. Improving leukocytosis at 12,000 today.Continue meropenem and vancomycin today for possible aspiration pneumonia. Urine analysis not collected as patient has not voided. Blood culture from December 22, 2024 so far negative. Sign ovule fluid culture from the right knee remaining negative so far. Nasal MRSA screen is negative. Patient is awake, able to hold a conversation, however appearing to be pale and diaphoretic. Would continue broader spectrum antibiotics today with meropenem and vancomycin. If blood culture from 12/22 remains negative over the next 24 hours, anticipate discharge with cefazolin for 6 weeks as planned earlier. Short course of additional levofloxacin will be added at discharge. December 24, 2024 Leukocytosis now resolved. Afebrile. With expansion of spectrum, patient's leukocytosis and fever resolved. Likely this may have been related to aspiration pneumonia. Blood cx from 12/22 remains negative thus far. Recommend discharge on Cefazolin 2 g iv after diaylsis as already planned for 6 weeks. Short course of additional Levaofloxacin and linezolid presumptively for 5 days. Weekly CBC, creat. LFT while on cefazolin to be followed by ID clinic. F/up in Clinic on January 11, 2025 at 12pm. PDMP PDMP Reviewed: Not Reviewed Attestations 2 Medical Necessity Statement*: per admitting Coding Level of Care Code Acute Code for [facility] Fwd Diagnoses Staphylococcus aureus bacteremia R78.81; B95.61 Myositis M60.9 Stroke I63.9 ESRD (end stage renal disease) N18.6
--- NOTE | 2024-12-24 15:38 | PC.NURSE ---
time out and post para cxr ordered on wrong pt. unable to delete time out charting. order cancelled
--- NOTE | 2024-12-24 16:16 | P.PN_ITS ---
Subjective 2 Subjective: getting HD Medications: Reviewed: Yes Vitals/I&O/Wt Last Vital Signs Temp 98.0 F 12/24/24 11:55 Pulse 60 12/24/24 12:24 Resp 18 12/24/24 11:55 BP 140/65 12/24/24 11:55 Pulse Ox 90 12/24/24 12:24 O2 Del Method Room Air 12/24/24 12:24 O2 Flow Rate 1 12/24/24 04:00 12/24/24 12/24/24 12/24/24 06:59 14:59 22:59 Intake Total 300 / 300 Output Total 2300 / 2300 Balance -1999 / Weight last 48 hrs Weight 114.8 kg Weight 117.084 kg Weight 114.305 kg Weight 116.074 kg Physical Exam 2 Narrative: GEN: nad, HEAD: normocephalic, atraumatic EYES: eyes are closed HEENT: mmm NECK: no jvd CV: rrr LUNGS: diminished BS ABD: soft, nt, nd EXT: NO LE edema NEURO: lethargic SKIN: no rash Data 12/24/24 04:50 12/24/24 04:50 Micro: Microbiology 12/21/24 12:45 Gram Stain - Final Synovial Fluid Anaerobic Culture - Preliminary Body Fluid Culture - Final A&P Assessment and plan (1) ESRD (end stage renal disease): Plan 1. End-stage renal disease- he is on maintenance HD on a MWF schedule. - Patient's AVF is functioning well, removed temporary HD catheter. -placed on low K diet 2. History of hypertension- resume home meds 3. Anemia in ckd- Hemoglobin at goal 4. Intractable back pain- due to lumbar radiculopathy , 5. History of coronary artery disease 6. Encephalopathy- likely metabolic 7. RUE CTA concerning for myositis and ? abscess, general surgery following 8. staph aureus bacteremia , VJ negative , ? septic arthritis - awaiting synovial fluid cultures , Pt evaluated using audiovisual cart. Time spent 20 min PDMP PDMP Reviewed: Not Reviewed Attestations 2 Medical Necessity Statement*: PER ALEX Coding Level of Care Code Acute Code for Chg Fwd Diagnoses ESRD (end stage renal disease) N18.6
== END 2024-12-24 11:55 | disposition skilled nursing facility (03) | DRG 871 ==
LOC: ER 11:57 → ICU 14:57 → CSU 12-18 17:02 → MEDSURG 12-22 17:42
PROVIDERS: Internal Medicine; Student in an Organized Health Care Education/Training Program; Admitting Provider Family Medicine; Emergency Provider Family Medicine; PCP Internal Medicine; Visit Provider Internal Medicine
DX: A41.9 Sepsis, unspecified organism (principal); G93.41 Metabolic encephalopathy; I50.23 Acute on chronic systolic (congestive) heart failure; R65.21 Severe sepsis with septic shock; N18.6 End stage renal disease; I63.81 Other cerebral infarction due to occlusion or stenosis of small artery; J69.0 Pneumonitis due to inhalation of food and vomit; I21.A1 Myocardial infarction type 2; I13.2 Hypertensive heart and chronic kidney disease with heart failure and with stage 5 chronic kidney disease, or end stage renal disease; E87.1 Hypo-osmolality and hyponatremia; E87.20 Acidosis, unspecified; I42.9 Cardiomyopathy, unspecified; A28.1 Cat-scratch disease; E11.22 Type 2 diabetes mellitus with diabetic chronic kidney disease; E11.65 Type 2 diabetes mellitus with hyperglycemia; D63.1 Anemia in chronic kidney disease; M54.16 Radiculopathy, lumbar region; I25.10 Atherosclerotic heart disease of native coronary artery without angina pectoris; B95.61 Methicillin susceptible Staphylococcus aureus infection as the cause of diseases classified elsewhere; M60.9 Myositis, unspecified; H54.7 Unspecified visual loss; R29.705 NIHSS score 5; M25.461 Effusion, right knee; I95.9 Hypotension, unspecified; D69.6 Thrombocytopenia, unspecified; E87.5 Hyperkalemia; M79.7 Fibromyalgia; M19.90 Unspecified osteoarthritis, unspecified site; G89.29 Other chronic pain; M48.08 Spinal stenosis, sacral and sacrococcygeal region; E80.6 Other disorders of bilirubin metabolism; Z95.5 Presence of coronary angioplasty implant and graft; Z99.2 Dependence on renal dialysis; I25.2 Old myocardial infarction; Z79.891 Long term (current) use of opiate analgesic; Z79.4 Long term (current) use of insulin
CPT/HCPCS: 36415; 36416; 36592; 36600; 62328; 70450; 70496; 70498; 70551; 71045; 71275; 72126; 72129; 72132; 73206; 73701; 74176; 76700; 78227; 80048; 80051; 80053; 80202; 80307; 80503; 82009; 82140; 82247; 82248; 82330; 82550; 82805; 82962; 82977; 83036; 83605; 83690; 83735; 83880; 84100; 84145; 84443; 84484; 84550; 85025; 85378; 85610; 85651; 85730; 86140; 86611; 86618; 86666; 86757; 87040; 87070; 87075; 87077; 87150; 87186; 87205; 87426; 87486; 87581; 87633; 87798; 87801; 89050; 90935; 92507; 92523; 92526; 92610; 93005; 93312; 93320; 93325; 93970; 93971; 93998; 94664; 94799; 96365; 96366; 96367; 96372; 96375; 96376; 97110; 97162; 97167; 97530; 99291; 99292; A9537; C8929; J0690; J1100; J1171; J1644; J1815; J2060; J2185; J2250; J2270; J2470; J2543; J3010; J3370; J3372; J3490; J7050; J9999; P9047; Q3014

== ENCOUNTER → 2025-02-15 13:12 | Outpatient (BNVA) | payer MEDICARE, MEDICAID, SELFPAY | PROVIDERS: PCP Internal Medicine; Visit Provider Thoracic Surgery (Cardiothoracic Vascular Surgery) | DX: I96 Gangrene, not elsewhere classified (principal); L89.152 Pressure ulcer of sacral region, stage 2; L89.612 Pressure ulcer of right heel, stage 2; L89.892 Pressure ulcer of other site, stage 2 | CPT/HCPCS: 97597; 97598; 99213 ==

== ENCOUNTER 2025-02-18 09:52 | Inpatient (IN) | payer MEDICARE, MEDICAID, SELFPAY ==
[2025-02-18] VITALS (38 sets, daily range): BP systolic 63–159; BP diastolic 37–98; PULSE 74–157; RESP 12–30; TEMP 36.8–37.5; O2SAT 89–100
--- OUTSIDE RECORDS SUMMARY | 2025-02-18 10:01 | XMS_ITS | Encounter Summary ---
Author Organization [facility] Address [address] [place] [address] Care Team Providers Care Government Services Professional Name Role Phone Non-Staff, Physician Primary Care Provider Unava ilable Reason for Referral * Radiology Services (Routine) - Closed Specialty Diagnoses / Procedures Referred By Contac t Referred To Contact Radiology Diagnoses End stage renal disease on dialysis ([facility]/HCC) Mechanical breakdown of vascular dialysis catheter, initial encounter Procedures IR VENOUS ACCESS Nerissa Mendiola NP [facility] Interventional Radiology [address] [place] [address] Phone: tel: fax: Referral ID Status Reason Start Date Expiration Date Visits Re quested Visits Authorized [id number] Closed 10/28/2019 11/27/2020 1 1 Encounter Details Date Type Department Care Team (Late st Contact Info) Description 10/28/2019 Ancillary Orders [facility] Vascular Surgery [place] [address] [place] [id number] Nerissa Mendiola NP NO ADDRESS ON FILE End stage renal disease on dialysis (CMS/HCC); Mechanical breakdown of vascular dialysis catheter, initial encounter Social History Tobacco Use Types Packs/Day Years Used Date Smoking Tobacco: Former Cigarettes 1 3 Smokeless Tobacco: Never Alcohol Use Standard Drinks/Week Comments No 0 (1 standard drink = 0.6 oz pur e alcohol) Sex and Gender Information Value Date Recorded Sex Assigned at Not on file 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 No / Unsure 10/28/2019 7:47 AM CDT documented as of this encounter Plan of Treatment Not on file documented as of this encounter Results * IR VENOUS ACCESS (10/28/2019 9:07 AM CDT) Anatomical Region Laterality Modality X-Ray Angiograph y 10/28/2019 9:07 AM CDT Impressions 10/28/2019 2:31 PM CDT IMPRESSION: Please see below. Exam: Fluoroscopically guided exchange of right-sided indwelling tunneled dialysis catheter for a dual-lumen dialysis catheter Date/Time of Exam: 10/28/2019 9:07 AM Reason For Exam: See Diagnosis. Diagnosis: End stage renal disease on dialysis; End stage renal disease on dialysis; Mechanical breakdown of vascular dialysis catheter, initial encounter. Findings: The procedure and its risks and complications were explained to the patient and written consent was obtained. Monitored IV conscious sedation was performed. Following sterile preparation, drape, and adequate local anesthesia, a stiff angled Glidewire was advanced under fluoroscopic guidance through the indwelling dialysis catheter into the IVC. The dialysis catheter was removed without difficulty and replaced with a Glidepath tunneled hemodialysis catheter. The tip of the catheter was positioned in the right atrium of the heart. Both ports of the catheter proved to flush and aspirate freely with saline. Estimated blood loss was minimal. IMPRESSION: Uneventful exchange of the indwelling tunneled dialysis catheter for a dual-lumen tunneled and cuffed Glidepath catheter. Narrative Procedure Note Kaden Jacob MD - 10/28/2019 IMPRESSION: Please see below. Exam: Fluoroscopically guided exchange of right-sided indwelling tunneled dialysis catheter for a dual-lumen dialysis catheter Date/Time of Exam: 10/28/2019 9:07 AM Reason For Exam: See Diagnosis. Diagnosis: End stage renal disease on dialysis; End stage renal disease on dialysis; Mechanical breakdown of vascular dialysis catheter, initial encounter. Findings: The procedure and its risks and complications were explained to the patient and written consent was obtained. Monitored IV conscious sedation was performed. Following sterile preparation, drape, and adequate local anesthesia, a stiff angled Glidewire was advanced under fluoroscopic guidance through the indwelling dialysis catheter into the IVC. The dialysis catheter was removed without difficulty and replaced with a Glidepath tunneled hemodialysis catheter. The tip of the catheter was positioned in the right atrium of the heart. Both ports of the catheter proved to flush and aspirate freely with saline. Estimated blood loss was minimal. IMPRESSION: Uneventful exchange of the indwelling tunneled dialysis catheter for a dual-lumen tunneled and cuffed Glidepath catheter. 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
--- OUTSIDE RECORDS SUMMARY | 2025-02-18 10:01 | XMS_ITS | Clinical Summary ---
Author Organization [address] Address [address] [place] [address] [address] [place] [address] Care Team Providers Care Wire Lather Name Role Phone Non-Staff, Physician Primary Care Provider Unava ilable Allergies No known active allergies Medications Blood-Glucose Meter (CONTOUR METER) [facility] KitIndications: DM (diabetes mellitus) (CMS/HCC) by [facility].(Non-Drug; Combo Route) route. 1 Kit 0 0 Active blood sugar diagnostic (ASCENSIA CONTOUR) [facility] StrpIndications :DM (diabetes mellitus) (CMS/HCC) 1 Strip by See Admin Instructions route. 100 Strip 1 0 Active lancets [facility] MiscIndications :DM (diabetes mellitus) (CMS/HCC) by [facility].(Non-Drug; Combo Route) route. 100 Each 0 0 Active DULoxetine (CYMBALTA) 60 mg Oral CpDR Take 60 mg by mouth daily. Active cyclobenzaprine (FLEXERIL) 10 mg tabletIndicatio ns:DM (diabetes mellitus) (CMS/HCC),Gastr oparesis Take 10 mg by mouth 3 times daily. Active furosemide (LASIX) 40 mg tablet Take 40 mg by mouth 2 times daily. Active metoprolol tartrate (LOPRESSOR) 50 mg tablet Take 50 mg by mouth 2 times daily. Active isosorbide mononitrate (IMDUR) 30 mg Extended Release 24 hour tablet Take 30 mg by mouth daily. Active atorvastatin (LIPITOR) 20 mg tablet Take 20 mg by mouth daily at bedtime. Active insulin degludec (Tresiba FlexTouch U-100) 100 unit/mL pen syringe Inject 20 Units by subcutaneous injection daily at bedtime. Active HYDROcodone-demian taminophen (NORCO) 10-325 mg Tablet Take 1 Tablet by mouth 4 times daily as needed for Pain, Break-Through. 9 Active ergocalciferol (VITAMIN D2) 50,000 unit capsule Take 50,000 Units by mouth every 7 days. 0 Active losartan (COZAAR) 100 mg tablet Take 50 mg by mouth 2 times daily. Please do not take in the a.m. on dialysis days. 9 Active nitroglycerin (NITROSTAT) 0.4 mg Tablet, Sublingual Place 0.4 mg under tongue every 5 minutes as needed for Chest Pain (max 3 doses within 15 minutes. If chest pain does not resolve, seek medical attention.). 9 Active RENVELA 800 mg Tablet Take by mouth daily after supper. Renal Plex D 9 Active folic acid (FOLVITE) 1 mg tablet Take 1 Tablet (1 mg) by mouth daily. 30 Tablet 1 Active pantoprazole (Protonix) 40 mg Tablet, Delayed Release (E.C.) Take 1 Tablet (40 mg) by mouth 2 times daily. 60 Tablet 1 Active cyanocobalamin (VITAMIN B-12) 1,000 mcg/mL Solution Inject 1 mL (1,000 mcg) by intramuscular injection every other day. On dialysis days 1 mL 1 Active Active Problems Problem Noted Date Diagnosed Date Hypertensive emergency 08/18/2020 Acute systolic CHF (congestive heart failure) MSSA (methicillin susceptibl e Staphylococcus aureus) pneumonia 08/18/2020 MSSA bacteremia 08/18/2020 Severe sepsis without septic shock 08/18/2020 Acute respiratory failure with hypoxia 1 Elevated troponin 08/16/2020 Severe obesity (BMI 35.0-39.9) with comorbidity 08/16/2020 ESRD on dialysis 08/16/2020 ASHD (arteriosclerotic heart disease) 08/16/2020 S/P drug eluting coronary stent placement 2020 Acute pulmonary edema 08/16/2020 Hyperkalemia 08/16/2020 Prolonged Q-T interval on ECG 08/16/2020 NSTEMI (non-ST elevated myocardial infarction) 0 08/16/2020 Gastroparesis 02/14/2014 GERD (gastroesophageal reflux disease) 4 DM (diabetes mellitus) 06/06/2010 HTN (hypertension) 06/06/2010 Melena Acute blood loss anemia Anemia Acute respiratory failure with hypoxia and hyper capnia Immunizations Immunization Administration Dates Next Due Hepatitis A Vaccine 10/13/1997 Influenza Seasonal Unspecified Formulation IM Family History Medical History Relation Name Comments Colon Cancer Maternal Aunt Colon Cancer Maternal Grandmother Colon Cancer Sister 1 Colon Cancer Sister 2 Relation Name Status Comments Maternal Aunt Maternal Grandmother Sister 1 Alive Sister 2 Alive Social History Tobacco Use Types Packs/Day Years Used Date Smoking Tobacco: Former Cigarettes 1 3 Smokeless Tobacco: Never Alcohol Use Standard Drinks/Week Comments No 0 (1 standard drink = 0.6 oz pur e alcohol) Sex and Gender Information Value Date Recorded Sex Assigned at Not on file 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 Gender Identity Not on file Sexual Orientation Not on file Occupation Industry Job Start Date Job End Date Not on file Not on file Not on file Not on file Last Filed Vital Signs Vital Sign Reading Time Taken Comments Blood Pressure 162/71 08/29/2020 12:25 PM TAX RECORD CLERK RN notified Pulse 92 08/29/2020 12:25 PM TAX RECORD CLERK Temperature 36.2 C (97.2 F) 08/29/2020 11:35 AM TAX RECORD CLERK Respiratory Rate 16 08/29/2020 12:2 5 PM TAX RECORD CLERK Oxygen Saturation 100% 08/29/2020 12: 25 PM TAX RECORD CLERK Inhaled Oxygen Concentration - - Weight 111.4 kg (245 lb 9.5 oz) 08/29/2020 11:35 AM TAX RECORD CLERK Height 182.9 cm (6') 08/21/2020 3:45 PM TAX RECORD CLERK Body Mass Index 33.31 08/21/2020 3:45 PM TAX RECORD CLERK Plan of Treatment Health Maintenance Due Date Last Done Comments DIABETES ANNUAL FOOT EXAM 1983 DIABETES ANNUAL RETINAL EXAM 1983 DIABETES MICROALBUMIN ANNUAL SCREEN 1983 LDL CHOLESTEROL ANNUAL 1983 DTAP/TDAP/TD VACCINES (1 - Tdap) 1984 HEPATITIS B VACCINES (1 of 3 - 19+ 3-dose series) 11/1983 FIT-DNA Q 3 years 2010 FIT/FOBT Q 1 year 2010 Flex Sig/CT Colonography Q 5 years 2010 ZOSTER VACCINE (1 of 2) 2015 DIABETES HBA1C Q 6 MONTHS 12/13/2020 06/14/2020 COLORECTAL SCREENING 04/29/2023 04/29/2013 Colorectal Cancer Screening 04/29/2023 INFLUENZA VACCINE (#1) 2025 08/30/2019 Medical Devices Implanted Type Area Twx Operator Device Identifier Shelf Expiration Date Model / Serial / Lot Cath Dialysis Glidepath 14.5fr 23cm Std [id number] Implanted:Qty : 1 on 10/28/2019 by Kaden Jacob MD Catheter Right: Chest [employer] [id number] 04/12/2021 [id number] / / [id number] Clip Endo Resolution 360 235cm [id number] - [id number] Implanted:Qty : 1 on 08/19/2020 by Jose Seaman DO at [facility] Clip N/A: Esophagus [employer] [id number] Hemostatic Surgifoam [id number] - [id number] Implanted: by Nilton Izaguirre MD at [facility] (Quantity not on file) Hemostatic Right: Arm [employer] [id number] 08/27/2023 [id number] / / [id number] Insurance MEDICAID [place] MEDICARE PART A AND B RX [facility] Medicare Part D RX INFOCROSSING Medicaid Advance Directives For more information, please contact: [phone] Documents on File Type Date Recorded 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
--- OUTSIDE RECORDS SUMMARY | 2025-02-18 10:01 | XMS_ITS | Encounter Summary ---
Author Organization [facility] Address [address] [place] [address] Care Team Providers Care Railway Signal Electrician Name Role Phone Non-Staff, Physician Primary Care Provider Unava ilable Encounter Details Date Type Department Care Team (Late st Contact Info) Description 09/12/2020 Lab Requisition [facility] [address] [place] [address] Minh Perales, [address] [id number] Social History Tobacco Use Types Packs/Day Years Used Date Smoking Tobacco: Former Cigarettes 1 3 Smokeless Tobacco: Never Alcohol Use Standard Drinks/Week Comments No 0 (1 standard drink = 0.6 oz pur e alcohol) Sex and Gender Information Value Date Recorded Sex Assigned at Not on file Legal Sex Male 3:30 AM SALES UTILITY REPRESENTATIVE Gender Identity Not on file Sexual Orientation Not on file Occupation Industry Job Start Date Job End Date Not on file Not on file Not on file Not on file COVID-19 Exposure Response Date Recorded In the last month, have you been in contact with someone who was confirmed or suspected to have Coronavirus / COVID-19? No / Unsure 08/22/2020 6:09 PM SALES UTILITY REPRESENTATIVE documented as of this encounter Plan of Treatment Not on file documented as of this encounter Procedures Procedure Name Priority Date/Time Associated Diagnosis Comments 2019 NOVEL CORONAVIRUS (COVID-19) PCR DETECTION Routine 09/12/2020 5:50 AM SALES UTILITY REPRESENTATIVE documented in this encounter Results * 2019 NOVEL CORONAVIRUS (COVID-19) PCR DETECTION (09/12/2020 5:50 AM SALES UTILITY REPRESENTATIVE) COVID-19 PCR NOT DETECTED Not Detected 09/13/2020 1:48 AM SALES UTILITY REPRESENTATIVE [facility] PERFORMING LAB [facility] 09/13/2020 1:48 AM SALES UTILITY REPRESENTATIVE [facility] Upper Respiratory Collection / Unknown 09/12/2020 5:50 AM SALES UTILITY REPRESENTATIVE 09/12/2020 7:51 PM SALES UTILITY REPRESENTATIVE Narrative [facility] - 09/13/2020 1:48 AM SALES UTILITY REPRESENTATIVE This test has been authorized by the FDA under an Emergency Use Authorization for use by authorized laboratories. This test has been validated in accordance with the FDA's guidance regarding Coronavirus Disease-2019 testing. Optimum specimen types and timing for peak viral levels during infection have not been determined. A negative RT-PCR result does not rule out infection with the 2019-Novel Coronavirus. Minh Perales DO MICROBIOLOGY - GENERA L ORDERABLES Final Result [facility] [address] [place] [address] documented in this encounter Visit Diagnoses Not on filedocumented in this encounter Care Teams Railway Signal Electrician Relationship Specialty Start Date End Date Non-Staff, Physician NO ADDRESS ON FILE PCP - General 09/07/19 documented as of this encounter
--- OUTSIDE RECORDS SUMMARY | 2025-02-18 10:01 | XMS_ITS | Clinical Summary ---
Author Organization [address] Address [facility] [address] [place] [address] Care Team Providers Care Demand Inspector Name Role Phone Non-Staff, Physician Primary Care Provider Unava ilable Allergies No known active allergies Medications metoprolol tartrate (LOPRESSOR) 50 mg tablet Take 50 mg by mouth 2 times daily. 0 Active atorvastatin (LIPITOR) 20 mg tablet Take 20 mg by mouth daily at bedtime. 0 Active isosorbide mononitrate (IMDUR) 30 mg Extended Release 24 hour tablet Take 30 mg by mouth daily. 0 Active insulin degludec (Tresiba FlexTouch U-100) 100 unit/mL pen syringe Inject 30 Units by subcutaneous injection daily at bedtime. 0 Active furosemide (LASIX) 40 mg tablet Take 40 mg by mouth 2 times daily. 0 Active folic acid (FOLVITE) 1 mg tablet Take 1 Tablet (1 mg) by mouth daily. 30 Tablet 0 1 Active pantoprazole (PROTONIX) 40 mg Tablet, Delayed Release (E.C.) Take 1 Tablet (40 mg) by mouth 2 times daily. 60 Tablet 0 1 Active cyanocobalamin (VITAMIN B-12) 1,000 mcg/mL Solution Inject 1 mL (1,000 mcg) by intramuscular injection every other day. On dialysis days 1 mL 0 1 Active nitroglycerin (NITROSTAT) 0.4 mg Tablet, Sublingual Place 0.4 mg under tongue every 5 minutes as needed for Chest Pain (max 3 doses within 15 minutes. If chest pain does not resolve, seek medical attention.). 9 Active HYDROcodone-demian taminophen (NORCO) 10-325 mg Tablet Take 1 Tablet by mouth 4 times daily as needed for Pain, Break-Through. 9 Active ergocalciferol (VITAMIN D2) 50,000 unit capsule Take 50,000 Units by mouth every 7 days. 0 Active sevelamer carbonate (Renvela) 800 mg Tablet Take by mouth daily after supper. Renal Plex D 9 Active losartan (COZAAR) 100 mg tablet Take 100 mg by mouth daily. 9 Active amLODIPine (NORVASC) 10 mg tablet 3 Active cyclobenzaprine (FLEXERIL) 10 mg tablet Take 1 Tablet by mouth. 9 Active DULoxetine (CYMBALTA) 60 mg Capsule, Delayed Release(E.C.) 3 Active lanthanum (FOSRENOL) 1,000 mg Tablet, Chewable CHEW AND SWALLOW 3 TABLETS THREE TIMES A DAY WITH MEALS AND TAKE 1 TABLET WITH A SNACK 3 Active minoxidiL (LONITEN) 2.5 mg tablet TAKE 2 TABLETS BY MOUTH EVERY MORNING AND 3 TABLETS BY MOUTH EVERY EVENING 3 Active RenaPlex-D 800 mcg-12.5 mg -2,000 unit Tablet Take 1 Tablet by mouth daily. 3 Active hydrALAZINE (APRESOLINE) 25 mg tablet Take 1 Tablet by mouth 3 times daily. 4 Active HYDROcodone-demian taminophen (NORCO) 10-325 mg Tablet Take 1 Tablet by mouth. 3 Active metoprolol tartrate (LOPRESSOR) 50 mg tablet Twice A Day 3 Active minoxidiL (LONITEN) 2.5 mg tablet As Directed 3 Active insulin degludec (TRESIBA U-100 INSULIN SUBCUT) Inject 24 Units by subcutaneous injection daily at bedtime. 4 Active B,C/folic/zinc/ selenometh/D3/E (RENAPLEX-D ORAL) 1 Tablet. 3 Active Simbrinza 1-0.2 % Drops, Suspension 1 Drop. 4 Active latanoprost (XALATAN) 0.005 % solution 1 Drop. 4 Active metoclopramide HCl (REGLAN) 5 mg tablet Take 1 Tablet by mouth 2 times daily. 4 Active losartan (COZAAR) 100 mg tablet Take 1 Tablet by mouth. Active linaCLOtide (LINZESS) 72 mcg Capsule capsuleIndicati ons:Screening for colon cancer Take 1 Capsule (72 mcg) by mouth daily before breakfast. 30 Capsule 3 4 Active Active Problems Problem Noted Date Diagnosed Date Dyspepsia 07/01/2024 Chronic constipation 07/01/2024 Hypertensive emergency 08/18/2020 MSSA (methicillin susceptibl e Staphylococcus aureus) pneumonia 08/18/2020 Acute systolic CHF (congestive heart failure) MSSA bacteremia 08/18/2020 Severe sepsis without septic shock 08/18/2020 Elevated troponin 08/16/2020 Severe obesity (BMI 35.0-39.9) with comorbidity 08/16/2020 End stage renal disease 08/16/2020 ASHD (arteriosclerotic heart disease) 08/16/2020 S/P drug eluting coronary stent placement 2020 Hyperkalemia 08/16/2020 Prolonged Q-T interval on ECG 08/16/2020 NSTEMI (non-ST elevated myocardial infarction) 0 08/16/2020 GERD (gastroesophageal reflux disease) 4 Gastroparesis 02/14/2014 HTN (hypertension) 06/06/2010 DM (diabetes mellitus) 06/06/2010 Melena Acute blood loss anemia Anemia Resolved Problems Problem Noted Date Diagnosed Date Resolved Date Acute respiratory failure with hypoxia 08/16/2020 02/19/2022 Acute pulmonary edema 08/16/20202021 Acute respiratory failure wi th hypoxia and hypercapnia 02/19/2022 Encounters Date Type Department Care Team Description 01/26/2025 External Device Data STL ABSTRACTION Provider, Abstract 01/26/2025 External Device Data STL ABSTRACTION Provider, Abstract 01/25/2025 External Device Data ST[facility] ABSTRACTION Provider, Abstract 12/29/2024 External Device Data STL ABSTRACTION Provider, Abstract 12/01/2024 External Device Data ST[facility] ABSTRACTION Provider, Abstract 11/30/2024 External Device Data STL ABSTRACTION Provider, Abstract from Last 3 Months Immunizations Immunization Administration Dates Next Due Hepatitis [...] Years Used Date Smoking Tobacco: Former Cigarettes Smokeless Tobacco: Never Tobacco Cessation:Counseling Given: No Alcohol Use Standard Drinks/Week Comments No 0 (1 standard drink = 0.6 oz pur e alcohol) Sex and Gender Information Value Date Recorded Sex Assigned at Not on file Legal Sex Male 3:47 PM CHEST PAIN COORDINATOR Gender Identity Not on file Sexual Orientation Not on file Last Filed Vital Signs Vital Sign Reading Time Taken Comments Blood Pressure 179/73 07/01/2024 9:42 AM CHEST PAIN COORDINATOR Pulse 78 07/01/2024 9:42 AM CHEST PAIN COORDINATOR Temperature 36.3 C (97.3 F) 12/30/2023 3:45 PM CDT Respiratory Rate 16 12/30/2023 3:45 PM CDT Oxygen Saturation 92% 12/30/2023 3:45 PM CDT Inhaled Oxygen Concentration - - Weight 126.6 kg (279 lb) 07/01/2024 9:42 AM CHEST PAIN COORDINATOR Height 182.9 cm (6') 07/01/2024 9:42 AM CHEST PAIN COORDINATOR Body Mass Index 37.84 07/01/2024 9:42 AM CHEST PAIN COORDINATOR Plan of Treatment Upcoming Encounters Date Type Department Care Team (Late st Contact Info) Description 02/25/2025 12:00 PM CDT Appointment [facility] Nuclear Medicine [address] [place] [address] Juan Jose Robledo MD [address] [facility] [address] [place] [address] Health Maintenance Due Date Last Done Comments DIABETES ANNUAL FOOT EXAM 1983 DIABETES ANNUAL RETINAL EXAM 1983 DIABETES MICROALBUMIN ANNUAL SCREEN 1983 LDL CHOLESTEROL ANNUAL 1983 DTAP/TDAP/TD VACCINES (1 - Tdap) 1984 HEPATITIS B VACCINES (1 of 3 - 19+ 3-dose series) 1984 FIT-DNA Q 3 years 2010 FIT/FOBT Q 1 year 2010 Flex Sig/CT Colonography Q 5 years 2010 ZOSTER VACCINE (1 of 2) 2015 COLORECTAL SCREENING 04/29/2023 04/29/2013 Colorectal Cancer Screening 04/29/2023 DIABETES HBA1C Q 6 MONTHS 12/15/2024 06/16/2024 INFLUENZA VACCINE (#1) 2025 , 04/23/2023, 04/08/2022, Additional history exists Medical Devices Implanted Type Area Ict Help Desk Technician Device Identifier Shelf Expiration Date Model / Serial / Lot Cath Dialysis Glidepath 14.5fr 23cm Std [id number] Implanted:Qty : 1 on 10/28/2019 by Kaden Jacob MD Catheter Right: Chest CR [employer]ARD[employer] [id number] 04/12/2021 [id number] / / [id number] Cath Dialysis Glidepath 14.5fr 27cm Std [id number] - [id number] Implanted:Qty : 1 on 03/24/2023 by Lenny Garcia MD at [facility] Catheter Left: Neck BARD TOMAS VASC 09/10/2024 [id number] / / [id number] Clip Endo Resolution 360 235cm [id number] - [id number] Implanted:Qty : 1 on 08/19/2020 by Jose Seaman, Clip N/A: Esophagus [employer] ENDOS[employer] [id number] / [id number] Clip Ligating Horizon Red [id number] - Csc - [id number] Implanted:Qty : 1 on 03/24/2023 by Lenny Garcia MD at [facility] Clip Right: Arm [employer]LE[employer] INC [id number] 03/17/2027 [id number] / / [id number] Clip Ligating Horizon Med Ti 530072 - Csc - [id number] Implanted:Qty : 1 on 03/24/2023 by Lenny Garcia MD at [facility] Clip Right: Arm TELE[employer]LEX- WECK CL[employer]URE SYS [id number] 09/18/2027 [id number] / / [id number] Graft Vasc Propaten [id number] - [id number] Implanted:Qty : 1 on 03/24/2023 by Lenny Garcia MD at [facility] Graft Right: Arm [employer] [id number] 10/02/2024 [id number] / [id number] Hemostatic Surgifoam [id number] [id number] - [id number] Implanted: by Nilton Izaguirre MD (Quantity not on file) Hemostatic Right: Arm [employer]- [employer] [id number] 08/27/20231973 / / [id number] Hemostatic Surgicel 1x2in 1960 - [id number] Implanted:Qty : 1 on 03/24/2023 by Lenny Garcia MD at [facility] Hemostatic Right: Arm J[employer]J- [employer] INC [id number] 12/12/20231960 / / [id number] Hemostatic Surgicel 2x3in 1952 - [id number] Implanted:Qty : 1 on 03/24/2023 by Lenny Garcia MD at [facility] Hemostatic Right: Arm J[employer] [id number] 06/12/2027 195 / / [id number] Hemostatic Surgicel 2x3in 1952 - [id number] Implanted:Qty : 1 on 03/24/2023 by Lenny Garcia MD at [facility] Hemostatic Right: Arm J&J- [employer] INC [id number] 06/12/2027 1953 / / [id number] Hemostatic Surgicel 1x2in 1960 - [id number] Implanted:Qty : 1 on 03/24/2023 by Lenny Garcia MD at [facility] Hemostatic Right: Arm J[employer]J- [employer] [id number] 12/12/20231960 / / [id number] Insurance MEDICAID [place] MEDICARE PART A AND B * Guarantor: KATHY LORENZEagleKT Account Type Relation to Patient Date of Phone Billing Address Personal/Family [address] [place] [address] RX INFOCROSSING Medicaid RX [facility] Medicare Part D Advance Directives For more information, please contact: [phone] Documents on File Type Date Recorded Patient Adult School Teacher Expl anation Advance Directive POA 01/03/2020 6:30 AM A dvance Directive POA * Full Code (Latest Code Status on File) Date Activated Date Inactivated Comments 03/24/2023 6:26 PM 03/25/2023 6:13 PM Care Teams Demand Inspector Relationship Specialty Start Date End Date Non-Staff, Physician NO ADDRESS ON FILE PCP - General 09/07/19
--- OUTSIDE RECORDS SUMMARY | 2025-02-18 10:02 | XMS_ITS | Encounter Summary ---
Author Organization [facility], [employer] Address [address] [place] [address] Phone Care Team Providers Care Weight Shifter Name Role Phone Sandy Kelly MD Primary Care Provider [phone] Encounter Details Date Type Department Care Team (Late st Contact Info) Description 10/15/2018 Orders Only [email or web address] [address] [place] [address] Social History Tobacco Use Types Packs/Day Years Used Date Smoking Tobacco: Never Assessed Sex and Gender Information Value Date Recorded Sex Assigned at Not on file Legal Sex Male 9:15 AM EDT Gender Identity Not on file Sexual Orientation Not on file documented as of this encounter Plan of Treatment Not on file documented as of this encounter Visit Diagnoses Not on filedocumented in this encounter Care Teams Weight Shifter Relationship Specialty Start Date End Date Sandy Kelly MD [address] [place] [id number] PCP - General Internal Medicine 11/12/18 documented as of this encounter
--- OUTSIDE RECORDS SUMMARY | 2025-02-18 10:02 | XMS_ITS | Encounter Summary ---
Author Organization [facility] [employer], [employer] Address [address] [facility] [address] [place] [address] Phone Care Team Providers Care Pathology Lab Technician Name Role Phone Sandy Kelly MD Primary Care Provider [phone] Encounter Details Date Type Department Care Team (Late st Contact Info) Description 12/04/2018 Orders Only [facility] [employer] [address] [place] [address] Kyle Cuellar MD [address] [facility] [address] [place] [address] Chronic kidney disease stage 4 (HCC) Social History Tobacco Use Types Packs/Day Years Used Date Smoking Tobacco: Former Cigarettes Q uit: 07/14/1997 Smokeless Tobacco: Never Alcohol Use Standard Drinks/Week Comments Never 0 (1 standard drink = 0.6 oz pur e alcohol) AUDIT-C Answer Date Recorded Frequency of Alcohol Consumption Never 10/22/2018 Average Number of Drinks Not on file 019 Frequency of Binge Drinking Not on file 10/12 Sex and Gender Information Value Date Recorded Sex Assigned at Not on file Legal Sex Male 9:15 AM EDT Gender Identity Not on file Sexual Orientation Not on file documented as of this encounter Plan of Treatment Not on file documented as of this encounter Visit Diagnoses Diagnosis Chronic kidney disease stage 4 (HCC) documented in this encounter Care Teams Pathology Lab Technician Relationship Specialty Start Date End Date Sandy Kelly MD [address] [place] [address] PCP - General Internal Medicine 11/12/18 documented as of this encounter
--- OUTSIDE RECORDS SUMMARY | 2025-02-18 10:02 | XMS_ITS | Encounter Summary ---
Author Organization [facility] Address [address] [place] [address] Care Team Providers Care Customer Solutions Coordinator Name Role Phone Non-Staff, Physician Primary Care Provider Unava ilable Encounter Details Date Type Department Care Team (Latest Contact Info) Description 05/21/2006 Outpatient [facility] [address] [phone] Vinicio Sharp MD NO ADDRESS ON FILE Unspecified Mononeuritis of Lower Limb (Primary Dx) Social History Tobacco Use Types Packs/Day Years Used Date Smoking Tobacco: Never Assessed Sex and Gender Information Value Date Recorded Sex Assigned at Not on file Legal Sex Male 3:30 AM FRAME HAND Gender Identity Not on file Sexual Orientation Not on file documented as of this encounter Plan of Treatment Not on file documented as of this encounter Visit Diagnoses Diagnosis Mononeuritis of lower limb, unspecified- Primary documented in this encounter Additional Health Concerns Infection Onset Date Last Indicated Resolved Time R/O COVID-19 08/16/2020 08/16/2020 08/16/2020 1:49 PM FRAME HAND documented as of this encounter Care Teams Customer Solutions Coordinator Relationship Specialty Start Date End Date Non-Staff, Physician NO ADDRESS ON FILE PCP - General 09/07/19 documented as of this encounter
--- OUTSIDE RECORDS SUMMARY | 2025-02-18 10:02 | XMS_ITS | Encounter Summary ---
Author Organization [facility] [employer], [employer] Address [address] [facility] [address] [place] [address] Phone Care Team Providers Care Patient Companion Name Role Phone Sandy Kelly MD Primary Care Provider [phone] Encounter Details Date Type Department Care Team (Late st Contact Info) Description 02/20/2019 Orders Only [facility] [address] [place] [address] Kyle Cuellar MD [address] [facility] [address] [place] [address] Chronic kidney disease stage 4 [...] (HCC) documented in this encounter Care Teams Patient Companion Relationship Specialty Start Date End Date Sandy Kelly MD [address] [place] [address] PCP - General Internal Medicine 11/12/18 documented as of this encounter
--- OUTSIDE RECORDS SUMMARY | 2025-02-18 10:02 | XMS_ITS | Encounter Summary ---
Author Organization [facility] [employer] Address [address] [place] [address] Phone Care Team Providers Care Architectural Inspector Name Role Phone Sandy Kelly MD Primary Care Provider [phone] Reason for Visit * Reason Comments Med Refill Encounter Details Date Type Department Care Team (Late st Contact Info) Description 10/29/2020 Refill [facility] [address] [place] [address] Kyle Cuellar MD [address] [place] [address] Social History Tobacco Use Types [...] on filedocumented in this encounter Care Teams Architectural Inspector Relationship Specialty Start Date End Date Sandy Kelly MD [address] [place] [address] PCP - General Internal Medicine 11/12/18 documented as of this encounter
--- OUTSIDE RECORDS SUMMARY | 2025-02-18 10:02 | XMS_ITS | Encounter Summary ---
Author Organization [employer] [facility] [employer] [employer] Address [address] [place] [address] Phone Care Team Providers Care Media Promoter Name Role Phone Sandy Kelly MD Primary Care Provider [phone] Reason for Visit * Reason Comments Med Refill Encounter Details Date Type Department Care Team (Late st Contact Info) Description 08/08/2020 Refill [facility] [address] [place] [address] Kyle Cuellar MD [address] [place] [address] Social History Tobacco Use Types [...] on filedocumented in this encounter Care Teams Media Promoter Relationship Specialty Start Date End Date Sandy Kelly MD [address] [place] [address] PCP - General Internal Medicine 11/12/18 documented as of this encounter
--- OUTSIDE RECORDS SUMMARY | 2025-02-18 10:02 | XMS_ITS | Clinical Summary ---
Author Organization [facility] Address [address] [facility] [address] [place] [address] Phone Care Team Providers Care Supervisor Stitching Department Name Role Phone Sandy Kelly MD Primary Care Provider [phone] Allergies Active Allergy Reactions Criticality Noted Date Comments Sertraline 11/12/2018 Medications * This document contains information received from the source organization and may not represent a complete record from that organization. HYDROcodone-acet aminophen (VICODIN) 10-300 MG per tablet Take 1 tablet by mouth 2 (two) times a day Active tiZANidine (ZANAFLEX) 4 MG capsule Take 4 mg by mouth 1 (one) time each day if needed Active insulin degludec (TRESIBA FLEXTOUCH) 100 UNIT/ML injection Inject 75 Units under the skin 1 (one) time each day Active insulin lispro (HumaLOG KWIKPEN) 100 UNIT/ML injection Inject 25 Units under the skin 3 (three) times a day before meals Active DULoxetine (CYMBALTA) [address] capsule Take 60 mg by mouth 1 (one) time each day Do not crush or chew. Active cloNIDine (CATAPRES) 0.1 MG tablet Take 0.1 mg by mouth 3 times a day Active chlorthalidone (HYGROTON) 25 MG tablet TAKE 1 TABLET BY MOUTH DAILY. 90 tablet 11 11/23/2018 Active NIFEdipine XL (PROCARDIA XL) 30 MG 24 hr tablet Take 1 tablet (30 mg total) by mouth every night Do not crush, chew, or split. 30 tablet 11 05/05/2024 Active Active Problems Problem Noted Date Diagnosed Date Stage 5 chronic kidney disease 12/03/2018 Encounters Date Type Department Care Team Description 02/09/2025 Orders Only [facility] [address] [place] [address] Shae Betancourt MD 02/02/2025 [facility], [facility] [address] [place] [address] Shae Betancourt MD 02/02/2025 Treatment [facility], [facility] [address] [place] [address] Shae Betancourt MD End stage renal disease; Dependence on renal dialysis 01/26/2025 [facility], [facility] [address] [place] [address] Shae Betancourt MD 01/21/2025 Orders [facility], [facility] [address] [place] [address] Shae Betancourt MD 01/19/2025 Orders [facility], [facility] [address] [address] [place] [address] Shae Betancourt MD 01/19/[address] [place] [address], [facility] [address] [place] [address] Thalia Gee NP End stage renal disease; Dependence on renal dialysis 01/17/2025 Orders Only [facility], [facility] [address] [place] [address] Shae Betancourt MD 01/12/2025 Orders Only [facility], [facility] [address] [address] [place] [address] Shae Betancourt MD 01/12/[address] [place] [address], [facility] [address] [place] [address] Thalia Gee NP End stage renal disease; Dependence on renal dialysis 01/03/2025 [facility], [facility] [address] [address] [place] [address] Cheri Alcaraz NP End stage renal disease; Dependence on renal dialysis 12/29/2024 Orders Only [facility], [facility] [address] [place] [address] Shae Betancourt MD 12/29/2024 Treatment [facility], [facility] [address] [place] [address] Shae Betancourt MD End stage renal disease; Dependence on renal dialysis 12/27/2024 Orders [facility], [facility] [address] [place] [address] Shae Betancourt MD 12/01/2024 Orders [facility], [facility] [address] [place] [address] Shae Betancourt MD 11/29/2024 Orders Only [facility], [facility] [address] [place] [address] Shae Betancourt MD 11/29/[address] [place] [address], [facility] [address] [place] [address] Thalia Gee NP End stage renal disease; Dependence on renal dialysis 11/24/2024 Orders [facility], [facility] [address] [place] [address] Shae Betancourt MD 11/22/[address] [place], [place] [address]rology [facility], [facility] [address] [place] [address] Cheri Alcaraz NP End stage renal disease; Dependence on renal dialysis from Last 3 Months Immunizations Immunization Administration Dates Next Due Hepatitis A 10/13/1997 Family History Medical History Relation Comments Hypertension Brother Cancer Sister 1 Diabetes Sister 2 Relation Status Comments Brother Sister 1 Sister 2 Social History Tobacco Use Types Packs/Day Years [...] Sign Reading Time Taken Comments Blood Pressure 160/94 11/20/2018 1:50 PM CDT Pulse 70 11/20/2018 1:50 PM CDT Temperature - - Respiratory Rate - - Oxygen Saturation - - Inhaled Oxygen Concentration - - Weight 112 kg (246 lb 4.8 oz) 11/20/2018 1:50 PM CDT Height 182.9 cm (6') 11/20/2018 1:50 PM CDT Body Mass Index 33.4 11/20/2018 1:50 PM CDT Plan of Treatment Health Maintenance Due Date Last Done Comments Hepatitis B Vaccine (1 of 5 - Risk Dialysis 4-dose series) 1985 Colorectal Cancer Screening: Annual FOBT 2014 Colorectal Cancer Screening: Colonoscopy 2014 Colorectal Cancer Screening: Sigmoidoscopy 2014 Diabetes: Ophthalmology Exam 12/03/2018 Diabetes: Pedal Pulse Checked 12/03/2018 Diabetes: Sensory Foot Exam 12/03/2018 Diabetes: Visual Foot Exam 12/03/2018 Pneumococcal Vaccine: 50+ Ye ars (3 of 3 - PCV20 or PCV21) 04/28/2024 04/28/2019, 02/01/2019 Diabetes: Hemoglobin A1C 12/16/2024 025, 06/16/2024, 03/17/2024, Additional history exists Influenza Vaccine (#1) 2025 4, 04/23/2023, 04/08/2022, Additional history exists Pneumococcal Vaccine: Peds ( 0 to 5 Years) and At-Risk Patients (6 to 49 Years) Discontinued 04/28/2019, 02/01/2019 Procedures Procedure Name Priority Date/Time Associated Diagnosis Comments HEMATOLOGY Routine 02/09/2025 HEMATOLOGY Routine 02/02/2025 HEMATOLOGY Routine 01/26/2025 CHEMISTRY Routine 01/21/2025 HEMATOLOGY Routine 01/19/2025 HEMATOLOGY Routine 01/17/2025 [facility] RESULTS Routine 01/12/2025 HD KINETICS Routine 01/12/2025 POST CHEMISTRY Routine 01/12/2025 CHEMISTRY Routine 01/12/2025 HEMATOLOGY Routine 01/12/2025 HEMATOLOGY Routine 12/29/2024 [facility] RESULTS Routine 12/27/2024 HD KINETICS Routine 12/27/2024 CHEMISTRY Routine 12/27/2024 HEMATOLOGY Routine 12/27/2024 CHEMISTRY Routine 12/27/2024 POST CHEMISTRY Routine 12/27/2024 HEMATOLOGY Routine 12/01/2024 [facility] LAB RESULTS Routine 11/29/2024 HD KINETICS Routine 11/29/2024 POST CHEMISTRY Routine 11/29/2024 CHEMISTRY Routine 11/29/2024 HEMATOLOGY Routine 11/24/2024 SPECIAL CHEMISTRY Routine 09/15/2024 from Last 3 Months or Most Recently Relevant to Health Maintenance Results * (ABNORMAL) HEMATOLOGY (02/09/2025) Only the most recent of10 resultswithin the time period is included. Hemoglobin 7.4(L) 14.0 - 18.0 g/dL [facility] Hemoglobin x 3 22.2(L) 42.0 - 54.0 % [facility] 02/09/2025 02/10/2025 11: 22 AM CDT Narrative [facility] - 02/10/2025 Unless otherwise specified, test(s) performed at: [facility], [address] [place] [id number] AUTOMOTIVE BRAKE ADJUSTER: Francois Lofton M.D. For any questions, please call customer service at FREQUENCY:OTHER Resulting Agency Comment Specimen source: Blood Shae Betancourt MD LAB BLOOD ORDERABLES Final Re sult Performing Organization Address [facility] Co de Phone Number [facility] See order comments or contact performing lab Unknown, [place] * (ABNORMAL) [facility] (01/21/2025) Only the most recent of5 resultswithin the time period is included. Pathologist [facility] Ferritin 2,046(H) 22 - 322 ng/mL [facility] Comment: Verified by repeat analysis. Iron 39(L) 45 - 160 mcg/dL [facility] 01/21/2025 01/22/2025 10: 59 AM CDT Narrative [facility] - 01/22/2025 Unless otherwise specified, test(s) performed at: [facility], [address] [place] [id number] AUTOMOTIVE BRAKE ADJUSTER: Francois Lofton M.D. For any questions, please call customer service at FREQUENCY:OTHER Resulting Agency Comment Specimen source: Serum us Shae Betancourt MD LAB BLOOD ORDERABLES Final Re sult Performing Organization Address City/[facility]/ZIP Co de Phone Number [facility] See order comments or contact performing lab Unknown, [place] * HD KINETICS (01/12/2025) Only the most recent of3 resultswithin the time period is included. % Urea Reduction 69 65 - 80 % [facility] 01/12/2025 01/13/2025 11: 55 AM CDT Narrative Resulting Agency Comment Specimen source: Plasma us Shae Betancourt MD LAB BLOOD ORDERABLES Final Re sult Performing Organization Address City/[facility]/ZIP Co de Phone Number [facility] See order comments or contact performing lab Unknown, [place] * POST CHEMISTRY (01/12/2025) Only the most recent of3 resultswithin the time period is included. BUN Post Dialysis 11 6 - 19 mg/dL [facility] 01/12/2025 01/13/2025 11: 55 AM CDT Narrative [facility] - 01/14/2025 Unless otherwise specified, test(s) performed at: [facility], [address] [place] [id number] AUTOMOTIVE BRAKE ADJUSTER: Francois Lofton M.D. For any questions, please call customer service at FREQUENCY:MONTHLY Resulting Agency Comment Specimen source: Plasma us Shae Betancourt MD LAB BLOOD ORDERABLES Final Re sul Performing Organization Address [facility] Co de Phone Number [facility] See order comments or contact performing lab Unknown, [place] * [facility] Results (01/12/2025) Only the most recent of3 resultswithin the time period is included. nPCR_HD 0.67 [facility] WSTDKT/V 2.3 [facility] eKt/V ([place]) 1.22 [facility] eKt/V Gotch [facility].24 [facility] eKdrt/V 1.24 [facility] spKt/V (Daugirdas II) 1.39 [facility] PCR 67.78 [facility] spKt/V Gotch 1.41 [facility] eNPCR 0.63 [facility] 01/12/2025 01/12/2025 us Miguelangel Ordering Provider LAB BLOOD ORDERABLES Final Result [facility] Contact Performing lab Unknown, [place] * (ABNORMAL) SPECIAL CHEMISTRY (09/15/2024) Hemoglobin A1C 7.0(H) 4.8 - 5.9 % [facility] 09/15/2024 09/16/2024 11: 03 AM BANKING MANAGER Narrative [facility] - 09/16/2024 Unless otherwise specified, test(s) performed at: [facility], [address] [place] [address] AUTOMOTIVE BRAKE ADJUSTER: Francois Lofton M.D. For any questions, please call customer service at FREQUENCY:MONTHLY Resulting Agency Comment Specimen source: Blood Shae Betancourt MD LAB BLOOD BANK TEST ORDERABLE S Final Result [facility] See order comments or contact performing lab Unknown, [place] from Last 3 Months or Most Recently Relevant to Health Maintenance Insurance Medicaid [place] ([id number]) Medicare Care Teams Supervisor Stitching Department Relationship Specialty Start Date End Date Sandy Kelly MD [address] [place] [id number] PCP - General Internal Medicine 11/12/18
--- OUTSIDE RECORDS SUMMARY | 2025-02-18 10:02 | XMS_ITS | Encounter Summary ---
Author Organization [facility] Address [address] [place] [address] Care Team Providers Care Counter Professional Name Role Phone Non-Staff, Physician Primary Care Provider Unava ilable Encounter Details Date Type Department Care Team (Late st Contact Info) Description 09/20/1999 Outpatient Historical [facility] [address] [address] Jake Wong II, DO [facility] Administrative Community Team [address] [place] [address] Influenza with other respiratory manifestations (Primary Dx) Social History Tobacco Use Types Packs/Day Years Used Date Smoking Tobacco: Never Assessed Sex and Gender Information Value Date Recorded Sex Assigned at Not on file 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 Gender Identity Not on file Sexual Orientation Not on file documented as of this encounter Plan of Treatment Not on file documented as of this encounter Visit Diagnoses Diagnosis Influenza with other respiratory manifestations- Primary documented in this encounter Additional Health Concerns Infection Onset Date Last Indicated Resolved Time R/O COVID-19 08/16/2020 08/16/2020 08/16/2020 1:49 PM MULTIPLE RESAW OPERATOR documented as of this encounter Care Teams Counter Professional Relationship Specialty Start Date End Date Non-Staff, Physician NO ADDRESS ON FILE PCP - General 09/07/19 documented as of this encounter
--- NOTE | 2025-02-18 10:03 | XR_ITS ---
WS: [id number] XR chest 1V portable [id number] REASON FOR EXAM: dyspnea/cough FINDINGS: Lungs are under aerated. Significant tortuosity and ectasia of the ascending aorta and aortic arch. Significant tortuosity of the descending thoracic aorta. Cardiomegaly with central venous congestion. No findings of pulmonary edema. Chronic coarse interstitial reticular opacities in both lower lungs. Atelectasis in both lower lungs. Blunting of both costophrenic angles. Significant dextroscoliosis of the thoracic spine. Compared to the examination of 12/21/2024 there is increasing density in the left lower hemithorax with obscuration of the hemidiaphragm. This may be due to increased pleural effusion and compressive atelectasis. Chest is otherwise unchanged. XR/XR chest 1V portable [id number] IMPRESSION: Cardiomegaly and central pulmonary venous congestion. Probably bilateral pleura l effusions. Increasing opacity in the left lower hemithorax as above.
--- NOTE | 2025-02-18 10:03 | CT_ITS ---
WS: [id number] CT HEAD NONCONTRAST HISTORY: AMS TECHNIQUE: Contiguous axial imaging performed through the brain. Bone and soft tissue windows. Sagittal and coronal reformats reviewed. All CT scans at [facility] use at least one of these dose optimization techniques: automated exposure control; mA and/or kV adjustment per patient size (includes targeted exams where dose is matched to clinical indication); or iterative reconstruction. DLP: 1032.58 mGy.cm COMPARISON: 12/16/2024 No acute intracranial hemorrhage, midline shift or mass effect. Focal areas of mineralization at the present in the posterior white matter on prior studies. There is no hemorrhage. Mild atrophy. Mild small vessel disease. No infarct. Ventricles: Normal size with no hydrocephalus. No inferior displacement of the cerebellar tonsils. Paranasal sinuses: Mucous retention cyst in the floor the LEFT maxillary sinus. Mastoid air cells: Well pneumatized. Calvarium and scalp: Skull is intact with no soft tissue edema or swelling. Additional calcific deposits in the scalp. Very dense calcifications in the distal vertebral artery and through the intracranial carotid arteries. CT/CT head wo con* [id number] IMPRESSION: 1. No acute intracranial hemorrhage or edema. 2. Mild small vessel disease and atrophy. No prior infarct. 3. Extensive atherosclerotic plaques in the distal vertebral and intracranial carotid arteries.
[2025-02-18 10:26] LABS: Hematocrit 24.4 % (37-53); Hemoglobin 7.40 g/dL (11.27-16.99); Mean Corpuscular HGB Conc 30.3 g/dL (30-55); Mean Corpuscular Hemoglobin 30.3 pg (27-33); Mean Corpuscular Volume 100.0 fl (82-101); Nucleated Red Blood Cells % 0 %; Platelet Count 261 10^3/cmm (157-399); Red Blood Count 2.44 10^6/uL (3.85-5.65); White Blood Count 26.02 10^3/uL (3.29-11.43)
--- NOTE | 2025-02-18 10:41 | ECG_ITS ---
[facility] [employer] Test Date: 2025-02-18 Pat Name: Kt Jett Department: Room: Gender: Male Chromium Plater: : 1965 Requested By: Sacha Fountain Order Number: [id number] Veronica MD: Ben Navas M.D. Measurements Intervals [place] Rate: 80 P: 96 CA: 206 QRS: 147 QRSD: 186 T: 165 QT: 448 QTc: 520 Interpretive Statements SINUS RHYTHM RIGHT BUNDLE BRANCH BLOCK [120+ ms QRS DURATION, UPRIGHT V1, 40+ ms S IN I/aVL/V4/V5/V6] LATERAL MYOCARDIAL INFARCTION , OF INDETERMINATE AGE [40+ ms Q WAVE AND/OR ST/T ABNORMALITY IN I/aVL/V5/V6] Compared to ECG 12/14/2024 13:35:54 Myocardial infarct finding now present Atrial fibrillation no longer present Right-axis deviation no longer present T-wave abnormality no longer present Possible ischemia no longer present Electronically Signed On 02-18-2025 13:44:55 CDT by Ben Navas M.D. [email or web address]
[2025-02-18 10:42] LABS: Alanine Aminotransferase < 5 U/L (0-41); Albumin Level 1.8 g/dL (3.5-5.2); Alkaline Phosphatase 233 U/L (40-130); Anion Gap 15.1 (5-19); Aspartate Amino Transferase 20 U/L (0-40); Blood Urea Nitrogen 44 mg/dL (6-20); Calcium 9.0 mg/dL (8.5-10.5); Carbon Dioxide 29 mmol/L (22-29); Chloride 93 mmol/L (98-107); Globulin 4.3 g/dL (1.3-4.6); Glucose 225 mg/dL (65-115); Osmolality Calculated 294 mOsm/kg (285-295); Potassium 4.1 mmol/L (3.5-5.1); Sodium 133 mmol/L (136-145); Total Protein 6.1 g/dL (6.6-8.7)
--- NOTE | 2025-02-18 10:54 | W.ED.AMS ---
HPI - Altered Mental Status General: Chief Complaint: Altered Mental Status Stated Complaint: ams Time Seen by Provider: 02/18/25 10:00 History of Present Illness: 59-year-old male presents to the emergency room via ambulance from local residential patient. Patient has end-stage renal disease and is on hemodialysis. He missed his dialysis 2 days ago and has not yet had it today. He is altered today he is not able to give much more than his name makes a lot of painful groans. Normally does not wear oxygen and is not requiring 2 L by nasal cannula. Related Data Home Medications ?Medication ?Instructions ?Recorded ?Confirmed pantoprazole 40 mg tablet,delayed 40 mg PO DAILY 07/13/19 02/18/25 release vitamin B complex-vitamin C-folic 1 tab PO DAILY 03/03/22 02/18/25 acid 0.8 mg tablet vit B,C-folic ac 800 mcg-zinc 12.5 1 tab PO DAILY 07/11/23 02/18/25 mg-selen-D3 2,000 unit-vit E tablet (RenaPlex-D) latanoprost 0.005 % eye drops 1 drp ophthalmic (eye) DAILY 09/14/24 02/18/25 dorzolamide 22.3 mg-timolol 6.8 1 drp ophthalmic (eye) BID 12/08/24 02/18/25 mg/mL eye drops bisacodyl 10 mg rectal suppository 10 mg MS DAILY PRN Constipation 12/12/24 02/18/25 (Dulcolax (bisacodyl)) hydrocodone 10 mg-acetaminophen 1 tab PO Q6H PRN Pain 12/28/24 02/18/25 325 mg tablet insulin lispro 100 unit/mL See Rx Instructions .Route .COMPLEX 12/28/24 02/18/25 subcutaneous solution (Humalog U-100 Insulin) nitroglycerin 0.4 mg sublingual 0.4 mg sublingual Q5M PRN Heart 12/28/24 02/18/25 tablet (Nitrostat) PAIN sodium phosphates 19 gram-7 118 ml MS DAILY PRN Constipation 12/28/24 02/18/25 gram/118 mL enema (Fleet Enema) citalopram 20 mg tablet (Celexa) 20 mg PO DAILY 02/18/25 02/18/25 insulin glargine 100 unit/mL (3 8 unit SUBCUT DAILY 02/18/25 02/18/25 mL) subcutaneous pen (Lantus Solostar U-100 Insulin) lanthanum 750 mg chewable tablet 750 mg PO TID 02/18/25 02/18/25 Previous Rx's ?Medication ?Instructions ?Recorded Diabetic shoes with Accomadative #1 ea 08/14/22 Insoles polyethylene glycol 3350 17 4 g PO DAILY #238 grams 11/23/24 gram/dose oral powder (Miralax) naloxone 4 mg/actuation nasal 4 mg intranasal Q2M PRN opioid 12/10/24 spray (Narcan) overdose #2 ea aspirin 81 mg tablet,delayed 81 mg PO DAILY #30 tabs 12/24/24 release atorvastatin 40 mg tablet 40 mg PO BEDTIME #30 tabs 12/24/24 Allergies Allergy/AdvReac Type Severity Reaction Status Date / Time No Known Allergies Allergy Verified 02/01/25 12:40 Review of Systems Const: Denies: fever(s) or chills Card: Denies: chest pain Resp: Denies: dyspnea GI: Denies: abdominal pain : Denies: dysuria, urinary frequency or urinary urgency Musc: Denies: neck pain or back pain Skin/Breast: Denies: rash PFSH ED PFSH: Medical History NSTEMI (non-ST elevated myocardial infarction) Hypertension Essential hypertension MSSA bacteremia Infection due to Port-A-Cath Anemia Hemodialysis access site with arteriovenous graft CAD (coronary artery disease) Hx of staphylococcal infection Chronic back pain Osteoarthritis Fibromyalgia GERD (gastroesophageal reflux disease) CKD (chronic kidney disease) Lumbar disc disease End stage renal disease on dialysis Diabetes mellitus Hypertensive emergency Congestive heart failure ESRD (end stage renal disease) Diabetes mellitus, type II Cardiomyopathy Surgical History Status post insertion of hemodialysis catheter Status post peritoneal dialysis History of coronary artery stent placement S/P tonsillectomy S/P carpal tunnel release H/O circumcision History of cataract surgery Family History Mother Aneurysm Grandmother Cancer Sister Cancer Social History Smoking and tobacco/nicotine status: unknown if used tobacco/nicotine Alcohol intake: never Substance/Drug Use: former 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 Clean since 1991 Lives independently: Yes Household members: none Housing: House Marital status: service: No Current occupational status: disabled Physical Exam HENMT: COMMON NORMALS: normocephalic, atraumatic and hearing grossly normal bilaterally HEAD & SCALP: normocephalic and atraumatic Resp: COMMON NORMALS: normal respiratory effort, No retractions, No use of accessory muscles and clear to auscultation bilaterally AUSCULTATION: clear to auscultation bilaterally Cardio: COMMON NORMALS: regular rate, regular rhythm and No murmurs present (Cardio) RATE: regular rate RHYTHM: regular rhythm GI: COMMON NORMALS: Soft to palpation and No hepatosplenomegaly present AUSCULTATION: Yes normoactive bowel sounds PALPATION: Yes Soft to palpation, No Tenderness to palpation present (GI), No Guarding due to palpation present (GI) and Yes No hepatosplenomegaly present Extremity: COMMON NORMALS: normal to inspection, capillary refill normal and no calf tenderness Skin: COMMON NORMALS: no rashes or lesions noted GENERAL SKIN EXAM: no rashes or lesions noted Course Vital Signs: Vital signs: Vital Signs Temperature 98.2 F 02/18/25 09:55 Pulse Rate 85 02/18/25 10:14 Respiratory Rate 12 02/18/25 10:14 Blood Pressure 159/79 02/18/25 10:14 Pulse Oximetry 93 02/18/25 10:14 Oxygen Delivery Me thod Nasal Cannula 02/18/25 09:55 Oxygen Flow Rate 2 02/18/25 09:55 MDM - Altered Mental Status Medical Decision Making Patient will need to get dialysis today. Concerned he may have septicemia. Previously had a infection in the arm on exam there is no evidence of that at this time. He is requiring oxygen. May need further evaluation his chest x-ray showed questionable pneumonia. Discussed Dr. Davenport he will start antibiotics. Consult nephrology. Medical Records I reviewed the patient's medical records. Lab Data I reviewed the patient's lab results. 02/18/25 10:21 02/18/25 10:21 Radiology Impressions Chest X-Ray 02/18/25 10:03 IMPRESSION: Cardiomegaly and central pulmonary venous congestion. Probably bilateral pleural effusions. Increasing opacity in the left lower hemithorax as above. Head CT 02/18/25 10:03 IMPRESSION: 1. No acute intracranial hemorrhage or edema. 2. Mild small vessel disease and atrophy. No prior infarct. 3. Extensive atherosclerotic plaques in the distal vertebral and intracranial carotid arteries. Chest CTA 02/18/25 11:22 IMPRESSION: 1. Suboptimal opacification of the pulmonary arteries. 2. No central pulmonary emboli. 3. Marked cardiomegaly. 4. Small pericardial effusion. 5. Extensive soft tissue anasarca. 6. LEFT upper and RIGHT lower lobe consolidations consistent with segmental pneumonia. Additional atelectatic changes. Soft Tissue Ultrasound 02/18/25 13:49 IMPRESSION: Unremarkable US. Laboratory Results WBC 26.02 10^3/uL (3.29-11.43) H 02/18/25 10:21 RBC 2.44 10^6/uL (3.85-5.65) L 02/18/25 10:21 Hgb 7.40 g/dL (11.27-16.99) L 02/18/25 10:21 Hct 24.4 % (37-53) L 02/18/25 10:21 MCV 100.0 fl (82-101) 02/18/25 10:21 MCH 30.3 pg (27-33) 02/18/25 10:21 MCHC 30.3 g/dL (30-55) 02/18/25 10:21 RDW 15.8 % (12.1-15.1) H 02/18/25 10:21 Plt Count 261 10^3/cmm (157-399) 02/18/25 10:21 MPV 9.8 fL (7.4-10.4) 02/18/25 10:21 Neut % (Auto) 90.4 % 02/18/25 10:21 Lymph % (Auto) 3.9 % 02/18/25 10:21 [place] % (Auto) 3.4 % 02/18/25 10:21 Eos % (Auto) 0.5 % 02/18/25 10:21 Baso % (Auto) 0.3 % 02/18/25 10:21 Neut # (Auto) 23.53 10^3/uL (1.8-7.7) H 02/18/25 10:21 Lymph # (Auto) 1.0 10^3/uL (0.8-4.8) 02/18/25 10:21 [place] # (Auto) 0.9 10^3/uL (0.2-0.9) 02/18/25 10:21 Eos # (Auto) 0.1 10^3/uL (0.0-0.8) 02/18/25 10:21 Baso # (Auto) 0.1 10^3/uL (0.0-0.1) 02/18/25 10:21 Nucleated RBC % (auto) 0 % 02/18/25 10:21 Nucleated RBCs # 0.0 /100WBC 02/18/25 10:21 Specimen Type Arterial 02/18/25 11:15 Sample Site Radial, left 02/18/25 11:15 ABG pH 7.47 (7.35-7.45) H 02/18/25 11:15 ABG pCO2 44.7 mmHg (35-45) 02/18/25 11:15 ABG pO2 68.5 mmHg (80.0-100.0) L 02/18/25 11:15 ABG PO2/FiO2 Ratio 244 02/18/25 11:15 ABG HCO3 32.6 mmol/L (22-26) H 02/18/25 11:15 ABG O2 Saturation 95.1 02/18/25 11:15 ABG Base Excess 8.1 mmol/L (-2.0-2.0) H 02/18/25 11:15 [place] Test Pos 02/18/25 11:15 A-a O2 Gradient 9.9 mmHg (5-10) 02/18/25 11:15 Hematocrit 26.3 % (42-52) L 02/18/25 11:15 Hgb O2 Saturation 92.0 % (95-100) L 02/18/25 11:15 Carboxyhemoglobin 2.4 %THgb (0.4-20.1) 02/18/25 11:15 Methemoglobin 0.8 % (0.4-1.5) 02/18/25 11:15 Total Hemoglobin 8.6 g/dL (14-18) L 02/18/25 11:15 Sodium 132.0 mmol/L (131-143) 02/18/25 11:15 Potassium 3.9 mmol/L (3.5-5.0) 02/18/25 11:15 Glucose 224.0 mg/dL (70-115) H 02/18/25 11:15 Ionized Calcium 1.3 mmol/L (1.1-1.4) 02/18/25 11:15 O2 Delivery Device Nc 02/18/25 11:15 O2 Liters/Min 2.0 % 02/18/25 11:15 FiO2 28.0 % 02/18/25 11:15 Stripe Matcher ID glc 02/18/25 11:15 Sodium 133 mmol/L (136-145) L 02/18/25 10:21 Potassium 4.1 mmol/L (3.5-5.1) 02/18/25 10:21 Chloride 93 mmol/L (98-107) L 02/18/25 10:21 Carbon Dioxide 29 mmol/L (22-29) 02/18/25 10:21 Anion Gap 15.1 (5-19) 02/18/25 10:21 BUN 44 mg/dL (6-20) H 02/18/25 10:21 Creatinine 4.8 mg/dL (0.7-1.2) H 02/18/25 10:21 GFR Calculation 12.5 mL/min (90-130) L 02/18/25 10:21 Glucose 225 mg/dL (65-115) H 02/18/25 10:21 Calculated Osmolality 294 mOsm/kg (285-295) 02/18/25 10:21 Calcium 9.0 mg/dL (8.5-10.5) 02/18/25 10:21 Total Bilirubin 0.8 mg/dL (0.15-1.2) 02/18/25 10:21 AST 20 U/L (0-40) 02/18/25 10:21 ALT < 5 U/L (0-41) 02/18/25 10:21 Alkaline Phosphatase 233 U/L (40-130) H 02/18/25 10:21 Creatine Kinase 16 U/L (39-308) L 02/18/25 10:21 Troponin T Baseline 356 ng/L (0-15) H* 02/18/25 10:21 Troponin T 120 Minute 336.0 ng/L (0-15) H 02/18/25 12:28 Delta Troponin T -20.0 ABS# (0-10) L 02/18/25 12:28 Total Protein 6.1 g/dL (6.6-8.7) L 02/18/25 10:21 Albumin 1.8 g/dL (3.5-5.2) L 02/18/25 10:21 Globulin 4.3 g/dL (1.3-4.6) 02/18/25 10:21 Vitamin B12 1945 pg/mL (232-1245) H 02/18/25 10:21 Urine Color Dark yellow (Yellow) A 02/18/25 13:03 Urine Appearance Clear (CLEAR) 02/18/25 13:03 Urine pH 8.5 (5-7) A 02/18/25 13:03 Ur Specific [place] 1.015 (1.005-1.030) 02/18/25 13:03 Urine Protein 3+ (Negative) A 02/18/25 13:03 Urine Glucose (UA) Trace (Normal) H 02/18/25 13:03 Urine Ketones Negative (Negative) 02/18/25 13:03 Urine Blood Negative (Negative) 02/18/25 13:03 Urine Nitrate Negative (Negative) 02/18/25 13:03 Urine Bilirubin 1+ (Negative) H 02/18/25 13:03 Urine Urobilinogen 0.2 mg/dL (Negative) 02/18/25 13:03 Ur Leukocyte Esterase Trace (Negative) A 02/18/25 13:03 Urine RBC 0-2 /hpf (0-2) 02/18/25 13:03 Urine WBC 0-5 /hpf (0-5) 02/18/25 13:03 Ur Squamous Epith Cells 0-5 /hpf (0-5) 02/18/25 13:03 Amorphous Sediment Not Reportable 02/18/25 13:03 Urine Bacteria None seen /hpf (NONE) 02/18/25 13:03 Hyaline Casts 2.05 /lpf 02/18/25 13:03 All radiology interpretation(s) finalized by discharge Discharge Plan Discharge Patient Disposition: Admitted As Inpatient Admit Provider: Isaiah Davenport Clinical Impression: ESRD (end stage renal disease), End stage renal disease on dialysis, Pressure ulcer, heel, right, unstageable, Type 2 diabetes mellitus with foot ulcer, Pulmonary edema Condition: Stable Coding Level of Care Code ED [employer] for Thomas Keen
--- NOTE | 2025-02-18 11:22 | CT_ITS ---
WS: [id number] CT CHEST ANGIOGRAPHY WITH REFORMATS HISTORY: hypoxemia/septicemia TECHNIQUE: Contiguous axial images are obtained through the chest during arterial injection of intravenous contrast. Images are reconstructed to evaluate the pulmonary arteries. MIP imaging also reviewed. All CT scans at [facility] use at least one of these dose optimization techniques: automated exposure control; mA and/or kV adjustment per patient size (includes targeted exams where dose is matched to clinical indication); or iterative reconstruction. CONTRAST: Omnipaque 350; 100 mL IV. DLP: 548.31 mGy.cm COMPARISON: 12/12/2024 Poor contrast opacification of the pulmonary arteries. Poor bolus injection of the contrast. There is contrast in the pulmonary artery and abdominal aorta. No central pulmonary emboli. Beyond the lobar branches emboli cannot be excluded. Normal size aorta with calcifications. Pulmonary artery slightly dilated. Moderate cardiomegaly. Small pericardial effusion. Lung volumes are decreased. Consolidation LEFT upper lobe. Additional consolidations at the lung bases. Probably a combination of atelectasis and RIGHT lower lobe pneumonia. No pneumothorax. No adenopathy. Diffuse soft tissue anasarca. Hepatic congestion. Dense calcifications of this splenic artery. Marked RIGHT curvature thoracic spine. CT/CT angio chest PE protcl [id number] IMPRESSION: 1. Suboptimal opacification of the pulmonary arteries. 2. No central pulmonary emboli. 3. Marked cardiomegaly. 4. Small pericardial effusion. 5. Extensive soft tissue anasarca. 6. LEFT upper and RIGHT lower lobe consolidations consistent with segmental pn [place]. Additional atelectatic changes.
[2025-02-18 11:27] LABS: ABG PCO2 44.7 mmHg (35-45); ABG PH Result 7.47 (7.35-7.45); Alveolar-Arterial Oxygen Gradi 9.9 mmHg (5-10); Arterial Blood Gas Hematocrit 26.3 % (42-52); Blood Gas Allen Test Pos; Blood Gas LPM 2.0 %; Blood Gas Operator Identificat glc; Blood Gas Sample Site Radial, left; Blood Gas Sample Type Arterial; Carboxyhemoglobin 2.4 %THgb (0.4-20.1); Glucose Level-ABG 224.0 mg/dL (70-115); HCO3 ABG 32.6 mmol/L (22-26); Ionized Calcium Level - ABG 1.3 mmol/L (1.1-1.4); Methemoglobin 0.8 % (0.4-1.5); Oxygen Saturation ABG 95.1; PO2 ABG 68.5 mmHg (80.0-100.0); PO2 FiO2 Ratio Arterial Blood 244; Potassium Level - ABG 3.9 mmol/L (3.5-5.0); Sodium Level - ABG 132.0 mmol/L (131-143)
[2025-02-18 11:39] LABS: Troponin(5th) Baseline 356 ng/L (0-15)
[2025-02-18] MEDS: iohexol 350 mg/mL 500 mL Btl (per mL) IV (12:20)
[2025-02-18 13:21] LABS: Troponin 5 2HR 336.0 ng/L (0-15); Troponin 5 2HR Delta -20.0 ABS# (0-10)
--- NOTE | 2025-02-18 13:27 | PM.HP ---
Providers/Chief Complaint Primary Care Provider: Sandy Kelly MD Chief Complaint: ams History of Present Illness Kt Jett is a 59 year old male with DM2, CAD, CHF, end-stage renal disease (ESRD) on Friday/Friday/Friday hemodialysis who was brought from his long-term to the emergency department after missing his Friday dialysis session and being noted to be confused. In the emergency department he appeared fluid-overloaded but was afebrile. Laboratory data showed leukocytosis 26 000/?L, hemoglobin 7.4 g/dL, platelets 261 K/?L, sodium 133 mEq/L, potassium 4.1 mEq/L, bicarbonate 29 mEq/L, blood urea nitrogen 44 mg/dL, creatinine 4.8 mg/dL, and arterial blood gas pH 7.47/Marine? 44.7 mm Hg/Da? 68.5 mm Hg. An electrocardiogram demonstrated right bundle branch block with Q waves in V1?V2 and aVL. He has a history of methicillin-sensitive Staphylococcus aureus bacteremia, aspiration pneumonia, and a small right deltoid abscess noted during a December hospitalization; a seroma near the fistula was also documented at that time. He was discharged on a six-week course of IV cefazolin but did not attend the planned infectious disease follow-up. Code status on record is full. Today he reports generalized pain, especially in the back, but denies abdominal pain. No allergies are listed. Review of Systems General: Reports: ROS unobtainable due to mental status Medications/Allergies Home Medications ?Medication ?Instructions ?Recorded ?Confirmed ?Last Taken ?Type pantoprazole 40 mg tablet,delayed 40 mg PO DAILY 07/13/19 02/01/25 12/12/24 08:00 History release vitamin B complex-vitamin C-folic 1 tab PO DAILY 03/03/22 02/01/25 12/12/24 08:00 History acid 0.8 mg tablet Diabetic shoes with Accomadative #1 ea 08/14/22 02/01/25 Unknown Rx Insoles vit B,C-folic ac 800 mcg-zinc 12.5 1 tab PO DAILY 07/11/23 02/01/25 12/07/24 History mg-selen-D3 2,000 unit-vit E tablet (RenaPlex-D) citalopram 10 mg tablet 10 mg PO DAILY 03/11/0502/01/25 12/12/24 08:00 History latanoprost 0.005 % eye drops 1 drp ophthalmic (eye) DAILY 09/14/24 02/01/25 12/11/24 20:00 History polyethylene glycol 3350 17 4 g PO DAILY #238 grams 11/23/24 02/01/25 12/12/24 08:00 Rx gram/dose oral powder (Miralax) dorzolamide 22.3 mg-timolol 6.8 1 drp ophthalmic (eye) BID 12/08/24 02/01/25 12/07/24 08:00 History mg/mL eye drops lanthanum 1,000 mg chewable tablet 750 mg PO TID 12/09/24 02/01/25 Unknown History naloxone 4 mg/actuation nasal 4 mg intranasal Q2M PRN opioid 12/10/24 02/01/25 Unknown Rx spray (Narcan) overdose #2 ea bisacodyl 10 mg rectal suppository 10 mg [place] DAILY PRN Constipation 12/12/24 02/01/25 Unknown History (Dulcolax (bisacodyl)) aspirin 81 mg tablet,delayed 81 mg PO DAILY #30 tabs 12/24/24 02/01/25 Unknown Rx release atorvastatin 40 mg tablet 40 mg PO BEDTIME #30 tabs 12/24/24 02/01/25 Unknown Rx amlodipine 5 mg tablet 10 mg PO QDAY 12/28/24 02/01/25 Unknown History cefazolin 2 gram solution for 2 g IV .3 times a week 12/28/24 02/01/25 Unknown History injection cholecalciferol (vitamin D3) 1,250 1,250 mcg PO .Weekly 12/28/24 02/01/25 Unknown History mcg (50,000 unit) tablet (Dialyvite Vitamin D3 Max) cyanocobalamin (vitamin B-12) 1,000 mcg IM .3 times weekly 12/28/24 02/01/25 Unknown History 1,000 mcg/mL injection kit cyclobenzaprine 10 mg tablet 10 mg PO TID 12/28/24 02/01/25 Unknown History doxazosin 1 mg tablet (Cardura) 2 mg PO DAILY 12/28/24 02/01/25 Unknown History duloxetine 60 mg capsule,delayed 60 mg PO DAILY 12/28/24 02/01/25 Unknown History release folic acid 1 mg tablet 1 mg PO DAILY 12/28/24 02/01/25 Unknown History furosemide 40 mg tablet (Lasix) 40 mg PO BID 12/28/24 02/01/25 Unknown History hydralazine 25 mg tablet 10 mg PO QID 12/28/24 02/01/25 Unknown History hydrocodone 10 mg-acetaminophen 1 tab PO Q6H PRN 12/28/24 02/01/25 Unknown History 325 mg tablet insulin degludec 100 unit/mL (3 30 unit SUBCUT DAILY 12/28/24 02/01/25 Unknown History mL) subcutaneous pen (Tresiba FlexTouch U-100 insulin) insulin glargine 100 unit/mL 15 unit SUBCUT QAM 12/28/24 02/01/25 Unknown History subcutaneous solution (Lantus U-100 Insulin) insulin lispro 100 unit/mL See Rx Instructions .Route .COMPLEX 12/28/24 02/01/25 Unknown History subcutaneous solution (Humalog U-100 Insulin) isosorbide mononitrate 20 mg tablet 60 mg PO BID 12/28/24 02/01/25 Unknown History losartan 100 mg tablet 100 mg PO DAILY 12/28/24 02/01/25 Unknown History metoprolol tartrate 50 mg tablet 50 mg PO BID 12/28/24 02/01/25 Unknown History nitroglycerin 0.4 mg sublingual 0.4 mg sublingual Q5M PRN 12/28/24 02/01/25 Unknown History tablet (Nitrostat) sevelamer carbonate 800 mg tablet 800 mg PO TID 12/28/24 02/01/25 Unknown History (Renvela) sodium phosphates 19 gram-7 118 ml [place] DAILY PRN 12/28/24 02/01/25 Unknown History gram/118 mL enema (Fleet Enema) Allergies Allergy/AdvReac Type Severity Reaction Status Date / Time No Known Allergies Allergy Verified 02/01/25 12:40 PFSH Acute PFSH: Medical History NSTEMI (non-ST elevated myocardial infarction) Hypertension Essential hypertension MSSA bacteremia Infection due to Port-A-Cath Anemia Hemodialysis access site with arteriovenous graft CAD (coronary artery disease) Hx of staphylococcal infection Chronic back pain Osteoarthritis Fibromyalgia GERD (gastroesophageal reflux disease) CKD (chronic kidney disease) Lumbar disc disease End stage renal disease on dialysis Diabetes mellitus Hypertensive emergency Congestive heart failure ESRD (end stage renal disease) Diabetes mellitus, type II Cardiomyopathy Surgical History Status post insertion of hemodialysis catheter Status post peritoneal dialysis History of coronary artery stent placement S/P tonsillectomy S/P carpal tunnel release H/O circumcision History of cataract surgery Family History Mother Aneurysm Grandmother Cancer Sister Cancer Social History Smoking and tobacco/nicotine status: unknown if used tobacco/nicotine Alcohol intake: never Substance/Drug Use: former 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 Clean since 1991 Lives independently: Yes Household members: none Housing: House Marital status: service: No Current occupational status: disabled Vitals/I&O/Wt Last Vital Signs Temp 98.2 F 02/18/25 09:55 Pulse 85 02/18/25 10:14 Resp 12 02/18/25 10:14 BP 159/79 02/18/25 10:14 Pulse Ox 93 02/18/25 10:14 O2 Del Method Nasal Cannula 02/18/25 09:55 O2 Flow Rate 2 02/18/25 09:55 02/17/25 02/18/25 02/18/25 22:59 06:59 14:59 Intake Total 0 / 0 Balance 0 / 0 Physical Exam Narrative: appears confused; mild to moderate diffuse tenderness over chest, abdomen, arms, and legs; generalized anasarca Const: COMMON NORMALS: alert; negative for patient oriented x3 GENERAL APPEARANCE: not cooperative ORIENTATION/CONSCIOUSNESS: not awake HENMT: COMMON NORMALS: oropharynx normal OTHER: Neck: no stiffness, Brudzinski negative Neck/C-Spine: COMMON NORMALS: no JVD Resp: COMMON NORMALS: normal respiratory effort and clear to auscultation bilaterally AUSCULTATION: clear to auscultation bilaterally Cardio: COMMON NORMALS: no JVD, regular rhythm, S1 normal heart sound present, S2 normal heart sound present and No murmurs present (Cardio) RHYTHM: regular rhythm HEART SOUNDS: S1 normal heart sound present and S2 normal heart sound present GI: COMMON NORMALS: Normal to inspection, nondistended, normoactive bowel sounds present, Soft to palpation and non-tender PALPATION: Yes Soft to palpation OTHER: Abdomen: mild diffuse body tenderness including abdomen Extremity: COMMON NORMALS: no joint enlargement and no pedal edema OTHER: chronic knee arthritis without swelling or redness; trace edema to thighs; arm edema; right arm fistula with good bruit, no redness or swelling; right heel bandaged with shallow dry ulcer; plantar surface under right fifth toe with old eschar, no drainage; prior left fourth toe amputation noted Neuro: COMMON NORMALS: patient oriented x3 and moves all extremities SENSORIUM/ORIENTATION: No alert Skin: OTHER: right heel lateral shallow dry ulcer with scaly flaky skin, no surrounding erythema or swelling; shallow sacral ulcer without depth or drainage Data 02/18/25 10:21 02/18/25 10:21 Micro: Microbiology 02/18/25 10:21 Blood Culture - Preliminary Blood SPECIMEN COLLECTED 02/18/25 11:00 Blood Culture - Preliminary Blood SPECIMEN COLLECTED A&P Assessment and plan 1. Anasarca: Anasarca with trace edema to thighs and arms, likely related to acute systolic and diastolic congestive heart failure with new 2 L nasal cannula oxygen requirement. Missed dialysis. Underlying EF 45 to 50%. - Additional dialysis session for fluid removal (because fluid overload). Nephrology consultation. - She reportedly still makes urine. Will give diuretic as well. Confirm home medications but used to be on Lasix 40 mg twice daily. Monitor for risk electrolyte deficiency, arrhythmia. Hypokalemia/hypotension with dialysis. - Fluid restriction 1000 mL per 24 hours. 2. Encephalopathy acute: Found confused at long-term; ABG alkalemic; suspicion for new metabolic encephalopathy with abrupt change related to fluid overload or infection. Reviewed head CT. Reviewed vitals CBC ABG CMP troponin with UA, chest x-ray and chest CTA, ED provider note, discussed with ED provider. - Obtain arterial blood gas to assess hypercapnia. - Straight catheter urine sample for urinalysis. - Hold sedating medications. - Continue frequent reorientation. - Telemetry and pulse oximetry monitoring. Plan: Leukocytosis and suspected infection : White blood cell count 26 000/?L; prior MSSA bacteremia; potential sources include fistula seroma, right deltoid area, skin ulcers, and lungs. - Collect blood cultures. Assessment for further foci of infection depending on culture results. - Obtain nasal swab for MRSA. - Start empiric ceftriaxone (staphylococcal coverage); consider expanding enteral coverage if no improvement. Start empiric vancomycin. - Infectious disease consult. - Ultrasound of right deltoid to evaluate prior abscess. - Ultrasound of right arm fistula to reassess seroma. - Send stool for Clostridioides difficile testing due to diarrhea. - Follow CTA Mild generalized tenderness: check CK Possible aspiration pneumonia : Chest X-ray shows haziness in right lower lobe and left base; prior aspiration pneumonia; on 2 L nasal cannula. With opacities on CTA reviewed. - Keep patient NPO due to aspiration risk. - Consider speech therapy evaluation once mental status improves. - Continue oxygen support and wean as tolerated. - If aspiration pneumonia worsens, broaden antibiotic coverage. End-stage renal disease on hemodialysis : ESRD on Friday/Friday/Friday hemodialysis; missed Friday session; creatinine 4.8 mg/dL; right arm fistula with good bruit. - Nephrology consult for continued hemodialysis Friday/Friday/Friday through right arm fistula. - Likely additional dialysis session for volume removal. Anemia: Hemoglobin 7.4. High normal MCV. ACD on prior iron studies. Without iron deficiency. TSH recently normal. Check B12, folic acid. Check Hemoccult. Skin ulcers : Shallow right heel and sacral ulcers without drainage or surrounding erythema. Float heels, Cont dressing changes. Diarrhea: check C diff Chronic back pain: chronic back pain around L4-L5 per history obtained from his sister. Currently no option for opioid or oral pain medication. Will request for lidocaine patch. DM2: Continue insulin. N.p.o. currently. Sliding scale insulin. Giurgius is carbohydrate dialysis diet once resumed. HTN: Monitor blood pressures, confirm and resume home medications. CAD: Continue aspirin rectally at this time, unable to take other medications orally for the time being. Other medical problems. Discussed his condition and plans with his sister who is in agreement and appreciates the update. PDMP PDMP Reviewed: Not Reviewed Attestations Medical Necessity Statement*: Admission over 2 midnights anticipated for assessment management of acute encephalopathy anasarca with acute CHF and fluid overload Time Spent in Patient Care: Admission over 2 midnights anticipated for assessment management of anasarca with acute systolic and diastolic CHF, missed hemodialysis, acute encephalopathy, leukocytosis, recent bacteremia lost to follow-up after IV antibiotics, possible aspiration pneumonia with hypoxia, additional medical problems as above. Diagnoses Anasarca R60.1 Encephalopathy acute G93.40
[2025-02-18 13:38] LABS: Glucose Urine UA Trace (Normal); Nitrate Urine Negative (Negative); Specific Gravity, Urine 1.015 (1.005-1.030)
[2025-02-18 13:44] LABS: Add Urine Microscopic? YES; Universal Test for UA Present (0)
--- NOTE | 2025-02-18 13:49 | USR_ITS ---
PROCEDURE INFORMATION: Exam: US Right Limited Joint or Other Non-Vascular Extremity Structure Exam date and time: 02/18/2025 3:53 PM Age: 59 years old Clinical indication: Other: Abscess and seroma; Prior surgery; Surgery date: 6+ months; Surgery type: Av brachial fistula; Additional info: R deltoid and around R fistula, prior possible abscess R deltoid and a seroma near venous TECHNIQUE: Imaging protocol: US right limited joint or other nonvascular extremity structure. Real-time ultrasound with image documentation. Exam focused on the area of clinical interest. COMPARISON: [place] [id number] 12/14/2024 9:28 PM FINDINGS: Soft tissues: Unremarkable. No loculated collections. There is a patent AV dialysis graft present. US/US soft tissue/extremity [id number] IMPRESSION: Unremarkable US.
[2025-02-18 14:03] LABS: UA Slide Review UA Slide Review Perf
--- NOTE | 2025-02-18 14:10 | PM.CONSULT ---
Providers/Reason For Consult Consulting Physician/Specialty*: [facility] Reason for Consult*: ESRD Primary Care Provider: Sandy Kelly MD History of Present Illness History of Present Illness Kt Jett is a 59 year old male Patient is a 59-year-old male with past medical history of diabetes, coronary artery disease, CHF, end-stage renal disease on dialysis per MWF schedule who was brought to the emergency department from the intermediate due to missing dialysis on Friday and altered mental status. Lab data showed elevated WBC count of 26,000,. Patient admitted for further management. Lab data reviewed. . Review of Systems Narrative: negative Medications/Allergies Home Medications ?Medication ?Instructions ?Recorded ?Confirmed ?Last Taken ?Type pantoprazole 40 mg tablet,delayed 40 mg PO DAILY 07/13/19 02/18/25 02/18/25 History release vitamin B complex-vitamin C-folic 1 tab PO DAILY 03/03/22 02/18/25 02/18/25 History acid 0.8 mg tablet Diabetic shoes with Accomadative #1 ea 08/14/22 02/18/25 Unknown Rx Insoles vit B,C-folic ac 800 mcg-zinc 12.5 1 tab PO DAILY 07/11/23 02/18/25 02/18/25 History mg-selen-D3 2,000 unit-vit E tablet (RenaPlex-D) latanoprost 0.005 % eye drops 1 drp ophthalmic (eye) DAILY 09/14/24 02/18/25 02/17/25 19:00 History polyethylene glycol 3350 17 4 g PO DAILY #238 grams 11/23/24 02/18/25 02/18/25 Rx gram/dose oral powder (Miralax) dorzolamide 22.3 mg-timolol 6.8 1 drp ophthalmic (eye) BID 12/08/24 02/18/25 02/18/25 History mg/mL eye drops naloxone 4 mg/actuation nasal 4 mg intranasal Q2M PRN opioid 12/10/24 02/18/25 Unknown Rx spray (Narcan) overdose #2 ea bisacodyl 10 mg rectal suppository 10 mg [place] DAILY PRN Constipation 12/12/24 02/18/25 Unknown History (Dulcolax (bisacodyl)) aspirin 81 mg tablet,delayed 81 mg PO DAILY #30 tabs 12/24/24 02/18/25 02/18/25 Rx release atorvastatin 40 mg tablet 40 mg PO BEDTIME #30 tabs 12/24/24 02/18/25 02/17/25 19:00 Rx hydrocodone 10 mg-acetaminophen 1 tab PO Q6H PRN Pain 12/28/24 02/18/25 02/18/25 History 325 mg tablet insulin lispro 100 unit/mL See Rx Instructions .Route .COMPLEX 12/28/24 02/18/25 02/18/25 History subcutaneous solution (Humalog U-100 Insulin) nitroglycerin 0.4 mg sublingual 0.4 mg sublingual Q5M PRN Heart 12/28/24 02/18/25 Unknown History tablet (Nitrostat) PAIN sodium phosphates 19 gram-7 118 ml [place] DAILY PRN Constipation 12/28/24 02/18/25 Unknown History gram/118 mL enema (Fleet Enema) citalopram 20 mg tablet (Celexa) 20 mg PO DAILY 02/18/25 02/18/25 02/18/25 History insulin glargine 100 unit/mL (3 8 unit SUBCUT DAILY 02/18/25 02/18/25 02/18/25 History mL) subcutaneous pen (Lantus Solostar U-100 Insulin) lanthanum 750 mg chewable tablet 750 mg PO TID 02/18/25 02/18/25 02/18/25 History Allergies Allergy/AdvReac Type Severity Reaction Status Date / Time No Known Allergies Allergy Verified 02/01/25 12:40 PFSH Acute PFSH: Medical History (Updated 02/18/25 @ 16:31 by Sacha Santoyo DO) NSTEMI (non-ST elevated myocardial infarction) Hypertension Essential hypertension MSSA bacteremia Infection due to Port-A-Cath Anemia Hemodialysis access site with arteriovenous graft CAD (coronary artery disease) Hx of staphylococcal infection Chronic back pain Osteoarthritis Fibromyalgia GERD (gastroesophageal reflux disease) CKD (chronic kidney disease) Lumbar disc disease End stage renal disease on dialysis Diabetes mellitus Hypertensive emergency Congestive heart failure ESRD (end stage renal disease) Diabetes mellitus, type II Cardiomyopathy Surgical History Status post insertion of hemodialysis catheter Status post peritoneal dialysis History of coronary artery stent placement S/P tonsillectomy S/P carpal tunnel release H/O circumcision History of cataract surgery Family History Mother Aneurysm Grandmother Cancer Sister Cancer Social History Smoking and tobacco/nicotine status: unknown if used tobacco/nicotine Alcohol intake: never Substance/Drug Use: former 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 Clean since 1991 Lives independently: Yes Household members: none Housing: House Marital status: service: No Current occupational status: disabled Vitals/I&O/Wt Last Vital Signs Temp 98.2 F 02/18/25 09:55 Pulse 85 02/18/25 10:14 Resp 12 02/18/25 10:14 BP 159/79 02/18/25 10:14 Pulse Ox 93 02/18/25 10:14 O2 Del Method Nasal Cannula 02/18/25 09:55 O2 Flow Rate 2 02/18/25 09:55 02/17/25 02/18/25 02/18/25 22:59 06:59 14:59 Intake Total 0 / 0 Balance 0 / 0 Weight last 48 hrs Weight 127.006 kg Physical Exam Narrative: Confused, no acute distress Getting hemodialysis Physical exam limited due to telemedicine visit Data 02/18/25 10:21 02/18/25 10:21 Micro: Microbiology 02/18/25 10:21 Blood Culture - Preliminary Blood SPECIMEN COLLECTED 02/18/25 11:00 Blood Culture - Preliminary Blood SPECIMEN COLLECTED A&P Assessment and plan 1. ESRD (end stage renal disease): Plan: 1. End-stage renal disease: On MWF schedule, missed HD on Friday. Now presented with altered mental status and fluid overload. Plan for hemodialysis today and ultrafiltration as tolerated 2. Encephalopathy, workup in process per primary team, HD as above 3. History of CHF with volume overload and anasarca, 4. Anemia, will order Epogen Patient evaluated using audiovisual cart. Time spent 40 minutes PDMP PDMP Reviewed: Not Reviewed Coding Level of Care Code Acute Code for Chg Fwd Diagnoses ESRD (end stage renal disease) N18.6
--- NOTE | 2025-02-18 14:16 | P.PHAVANC_ITS ---
Vancomycin Goal - Goal Vancomycin Goal:: 15-20 mg/L Vancomycin Indication:: Pneumonia - Therapy Day of therpy:: Day []of [] . Actual body weight (kg): 280 lb - Data Labs: WBC 26.02 10^3/uL (3.29-11.43) H 02/18/25 10:21 RBC 2.44 10^6/uL (3.85-5.65) L 02/18/25 10:21 Hgb 7.40 g/dL (11.27-16.99) L 02/18/25 10:21 Hct 24.4 % (37-53) L 02/18/25 10:21 MCV 100.0 fl (82-101) 02/18/25 10:21 MCH 30.3 pg (27-33) 02/18/25 10:21 MCHC 30.3 g/dL (30-55) 02/18/25 10:21 RDW 15.8 % (12.1-15.1) H 02/18/25 10:21 Sodium 133 mmol/L (136-145) L 02/18/25 10:21 Potassium 4.1 mmol/L (3.5-5.1) 02/18/25 10:21 Chloride 93 mmol/L (98-107) L 02/18/25 10:21 Carbon Dioxide 29 mmol/L (22-29) 02/18/25 10:21 Anion Gap 15.1 (5-19) 02/18/25 10:21 BUN 44 mg/dL (6-20) H 02/18/25 10:21 Creatinine 4.8 mg/dL (0.7-1.2) H 02/18/25 10:21 GFR Calculation 12.5 mL/min (90-130) L 02/18/25 10:21 Treatment plan:: new consult Regimen:: PATIENT WAS RECEIVING VANCOMYCIN LAST ADMISSION ON 12/23/24. PATIENT IS RECEI VING DIALYSIS. WILL GIVE 2 GRAMS TOTAL LOADING DOSE PER PROTOCOL. WILL DRAW RANDOM LEVEL WITH AM LABS. ONCE DIALYSIS SCHEDULE IS KNOWN, WILL REEVALUATE DOSING SCHEDULE.
[2025-02-18 14:45] LABS: Vitamin B12 1945 pg/mL (232-1245)
[2025-02-18] MEDS: cefTRIAXone 2,000 mg SDV 2000 MG IVP (15:34)
[2025-02-18] MEDS: heparin 5,000 unit/mL INJ 1 mL 5000 UNIT SUBCUT (15:38)
[2025-02-18] MEDS: FUROsemide 10 mg/mL SDV 4mL 60 MG IVP (15:43)
--- NOTE | 2025-02-18 16:00 | PC.NURSE ---
hutton catheter placed by this RN, approx 200ml of output once cath was placed. secured with statlock. pt tolerated procedure well.
--- NOTE | 2025-02-18 16:31 | PM.CONSULT ---
Providers/Reason For Consult Consulting Physician/Specialty*: Karyn Rehman MD/ Infectious Disease Reason for Consult*: sepsis Requesting Physician: Isaiah Davenport MD Attending Physician: Isaiah Davenport Primary Care Provider: Sandy Kelly MD History of Present Illness History of Present Illness Kt Jett is a 59 year old male history of CAD CKD on hemodialysis 3 times a week and an ID history significant for complicated MSSA bacteremia in August 2020 related to an infected port, history of MSSA bacteremia in 2018 MRSA source remain undefined. History of MRSA osteomyelitis of the foot in 2021. Patient was recently admitted to the hospital from 03/09/2025 with intractable back pain related to spinal stenosis and was discharged with recommendations to follow-up with spinal surgery. He returned to the emergency room on December 12 with altered mental status where and his blood culture upon evaluation was found to be positive for MSSA. That admission was also notable for having had a stroke/lacunar infarct in the left coronary radiator, NSTEMI. VJ was negative for any vegetations. There were no signs of osteomyelitis discitis or epidural abscess noted on CT of the spine. Right arm fistula site underwent an ultrasound exam was followed up with CTA of the extremity to rule out any abscess. There was concern for possible seroma versus hematoma but no abscess. Incidentally there was noted to be myositis of the right deltoid and a small 3 x 1 cm abscess. This may have been the site of her previous IM injection however the patient was unsure. He was noted to have a right knee joint effusion and underwent synovial fluid aspiration for the same. WBC count was noted to be fairly low at 3900 with 67% PMN os. Overall favoring inflammatory arthritis rather than septic arthritis. Gram stain and culture from the joint remain negative. Source of MSSA bacteremia remain unclear overall, however may have potentially been related to myositis and abscess of the right deltoid region. Alternately this may have been a secondary embolization but there was never a clear way to differentiate the two. Patient did develop a decubitus ulcer also however this was not showing signs of acute infection. He received treatment with broad-spectrum antibiotics in the hospital which was eventually narrowed to cefazolin 2 g IV with dialysis for 6 weeks for MSSA bacteremia. Patient was recommended to follow-up with infectious disease clinic on January 11, 2025, however he no showed the appointment. Since his discharge patient has remained in the snf. He has been following with wound care for his pressure sores involving the gluteus bilaterally and the sacrum. He is brought to the emergency room today with altered mental status. He missed his routine Friday dialysis session. When blood cell count was elevated at 26,000, patient had anemia and anasarca. History taking was not possible from the patient in view of his altered mental status. Review of Systems General: Reports: ROS unobtainable due to mental status Medications/Allergies Home Medications ?Medication ?Instructions ?Recorded ?Confirmed ?Last Taken ?Type pantoprazole 40 mg tablet,delayed 40 mg PO DAILY 07/13/19 02/18/25 02/18/25 History release vitamin B complex-vitamin C-folic 1 tab PO DAILY 03/03/22 02/18/25 02/18/25 History acid 0.8 mg tablet Diabetic shoes with Accomadative #1 ea 08/14/22 02/18/25 Unknown Rx Insoles vit B,C-folic ac 800 mcg-zinc 12.5 1 tab PO DAILY 07/11/23 02/18/25 02/18/25 History mg-selen-D3 2,000 unit-vit E tablet (RenaPlex-D) latanoprost 0.005 % eye drops 1 drp ophthalmic (eye) DAILY 09/14/24 02/18/25 02/17/25 19:00 History polyethylene glycol 3350 17 4 g PO DAILY #238 grams 11/23/24 02/18/25 02/18/25 Rx gram/dose oral powder (Miralax) dorzolamide 22.3 mg-timolol 6.8 1 drp ophthalmic (eye) BID 12/08/24 02/18/25 02/18/25 History mg/mL eye drops naloxone 4 mg/actuation nasal 4 mg intranasal Q2M PRN opioid 12/10/24 02/18/25 Unknown Rx spray (Narcan) overdose #2 ea bisacodyl 10 mg rectal suppository 10 mg [place] DAILY PRN Constipation 12/12/24 02/18/25 Unknown History (Dulcolax (bisacodyl)) aspirin 81 mg tablet,delayed 81 mg PO DAILY #30 tabs 12/24/24 02/18/25 02/18/25 Rx release atorvastatin 40 mg tablet 40 mg PO BEDTIME #30 tabs 12/24/24 02/18/25 02/17/25 19:00 Rx hydrocodone 10 mg-acetaminophen 1 tab PO Q6H PRN Pain 12/28/24 02/18/25 02/18/25 History 325 mg tablet insulin lispro 100 unit/mL See Rx Instructions .Route .COMPLEX 12/28/24 02/18/25 02/18/25 History subcutaneous solution (Humalog U-100 Insulin) nitroglycerin 0.4 mg sublingual 0.4 mg sublingual Q5M PRN Heart 12/28/24 02/18/25 Unknown History tablet (Nitrostat) PAIN sodium phosphates 19 gram-7 118 ml [place] DAILY PRN Constipation 12/28/24 02/18/25 Unknown History gram/118 mL enema (Fleet Enema) citalopram 20 mg tablet (Celexa) 20 mg PO DAILY 02/18/25 02/18/25 02/18/25 History insulin glargine 100 unit/mL (3 8 unit SUBCUT DAILY 02/18/25 02/18/25 02/18/25 History mL) subcutaneous pen (Lantus Solostar U-100 Insulin) lanthanum 750 mg chewable tablet 750 mg PO TID 02/18/25 02/18/25 02/18/25 History Allergies Allergy/AdvReac Type Severity Reaction Status Date / Time No Known Allergies Allergy Verified 02/01/25 12:40 Current Medications Generic Name Dose Route Start Last Admin Trade Name Freq PRN Reason Stop Dose Admin Ceftriaxone Sodium 2,000 mg 02/18/25 13:45 02/18/25 15:34 Ceftriaxone 2,000 Mg Sdv IVP 2,000 mg Q12H NATHANAEL Administration Protocol Furosemide 60 mg 02/18/25 13:50 02/18/25 15:43 Furosemide 10 Mg/Ml Sdv 4ml IVP 60 mg BID@0400,1600 NATHANAEL Administration Heparin Sodium (Porcine) 5,000 unit 02/18/25 14:00 02/18/25 15:38 Heparin 5,000 Unit/Ml Inj 1 Ml SUBCUT 5,000 unit Q12H NATHANAEL Administration PFSH Acute PFSH: Medical History NSTEMI (non-ST elevated myocardial infarction) Hypertension Essential hypertension MSSA bacteremia Infection due to Port-A-Cath Anemia Hemodialysis access site with arteriovenous graft CAD (coronary artery disease) Hx of staphylococcal infection Chronic back pain Osteoarthritis Fibromyalgia GERD (gastroesophageal reflux disease) CKD (chronic kidney disease) Lumbar disc disease End stage renal disease on dialysis Diabetes mellitus Hypertensive emergency Congestive heart failure ESRD (end stage renal disease) Diabetes mellitus, type II Cardiomyopathy Surgical History Status post insertion of hemodialysis catheter Status post peritoneal dialysis History of coronary artery stent placement S/P tonsillectomy S/P carpal tunnel release H/O circumcision History of cataract surgery Family History Mother Aneurysm Grandmother Cancer Sister Cancer Social History Smoking and tobacco/nicotine status: unknown if used tobacco/nicotine Alcohol intake: never Substance/Drug Use: former 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 Clean since 1991 Lives independently: Yes Household members: none Housing: House Marital status: service: No Current occupational status: disabled Vitals/I&O/Wt Last Vital Signs Temp 98.2 F 02/18/25 09:55 Pulse 85 02/18/25 10:14 Resp 12 02/18/25 10:14 BP 159/79 02/18/25 10:14 Pulse Ox 93 02/18/25 10:14 O2 Del Method Nasal Cannula 02/18/25 09:55 O2 Flow Rate 2 02/18/25 09:55 02/18/25 02/18/25 02/18/25 06:59 14:59 22:59 Intake Total 0 / 0 250 / 250 Balance 0 / 0 250 / 250 Weight last 48 hrs Weight 127.006 kg Physical Exam Narrative: General: No acute distress, AO x1 HEENT: PERRLA, pupils bilaterally equal and reactive, pallors not present Chest: Normal vesicular breath sounds, no added sounds, equal good air entry bilaterally CVS: S1-S2 regular, no murmurs, no tachycardia, no gallops, no rubs Abdomen: Soft, nontender, no organomegaly, bowel sounds present Neuro: Lethargic, opens eyes to calling name, tells me his correct name however is extremely lethargic, unable to participate in any meaningful conversation. Data 02/19/25 10:39 02/19/25 05:49 Micro: Microbiology 02/18/25 10:21 Blood Culture - Preliminary Blood SPECIMEN COLLECTED 02/18/25 11:00 Blood Culture - Preliminary Blood SPECIMEN COLLECTED Other data: [address] [address] XRay Report Signed Patient: Kt Jett Unit #: [id number] : 1965 Age/Sex: 59 / M ADM Date: 02/18/25 Loc: ICU Room/Bed: [place] [address]: Ines Boswell MD Ordering Provider/Ordering MD: Tommy Banks MD Date of Service: 02/19/25 Procedure(s): XR chest 1V portable [id number] Accession Number(s): [id number] Report Number: [id number] PROCEDURE INFORMATION: Exam: XR Chest Exam date and time: 02/19/2025 2:31 PM Age: 59 years old Clinical indication: Dyspnea; Fluid retention, renal disease; Additional info: Monitor fluid status TECHNIQUE: Imaging protocol: Radiologic exam of the chest. Views: 1 view. COMPARISON: CT angio chest PE protcl [id number] 02/18/2025 12:08 PM FINDINGS: Lungs: No significant pulmonary vascular congestion. Streaky opacities in the bilateral lower lobes. Silhouetting of the left hemidiaphragm. Pleural spaces: Blunting of the left costophrenic angle. No pneumothorax. Heart/Mediastinum: Mild cardiomegaly. Bones/joints: Unremarkable. XR/XR chest 1V portable [id number] IMPRESSION: 1. Blunting of the left costophrenic angle which can be seen with small pleural effusion. 2. Silhouetting of the left hemidiaphragm which can be seen with pleural effusion or atelectasis/consolidation. 3. Streaky opacities in the bilateral lower lobes. Differential diagnosis includes subsegmental atelectasis or multifocal infiltrates. 4. Mild cardiomegaly. atient: Kt Jett Unit #: [id number] : 1965 Age/Sex: 59 / M ADM Date: 02/18/25 Loc: ICU Room/Bed: [place] [address]: Isaiah Davenport MD Ordering Provider/Ordering MD: Isaiah Davenport MD Date of Service: 02/18/25 Procedure(s): US soft tissue/extremity [id number] Accession Number(s): [id number] Report Number: [id number] PROCEDURE INFORMATION: Exam: US Right Limited Joint or Other Non-Vascular Extremity Structure Exam date and time: 02/18/2025 3:53 PM Age: 59 years old Clinical indication: Other: Abscess and seroma; Prior surgery; Surgery date: 6+ months; Surgery type: Av brachial fistula; Additional info: R deltoid and around R fistula, prior possible abscess R deltoid and a seroma near venous TECHNIQUE: Imaging protocol: US right limited joint or other nonvascular extremity structure. Real-time ultrasound with image documentation. Exam focused on the area of clinical interest. COMPARISON: [place] [id number] 12/14/2024 9:28 PM FINDINGS: Soft tissues: Unremarkable. No loculated collections. There is a patent AV dialysis graft present. US/US soft tissue/extremity [id number] IMPRESSION: Unremarkable US. CT/CT angio chest PE protcl [id number] IMPRESSION: 1. Suboptimal opacification of the pulmonary arteries. 2. No central pulmonary emboli. 3. Marked cardiomegaly. 4. Small pericardial effusion. 5. Extensive soft tissue anasarca. 6. LEFT upper and RIGHT lower lobe consolidations consistent with segmental pneumonia. Additional atelectatic changes. CT/CT head wo con* [id number] IMPRESSION: 1. No acute intracranial hemorrhage or edema. 2. Mild small vessel disease and atrophy. No prior infarct. 3. Extensive atherosclerotic plaques in the distal vertebral and intracranial carotid arteries. A&P Assessment and plan 1. Altered mental status: 2. Leukocytosis: 3. Pneumonia: Plan: 59-year-old male with a complex past medical history as outlined above, presenting to the hospital today with altered mental status, leukocytosis. Differentials at this time remain broad. May be related to pneumonia, wounds over the sacrum and gluteal regions, though they do not appear to be grossly infected, potential bacteremia, potential C. difficile given recent antibiotic use and current diarrhea.. Blood culture has been taken and currently pending at this time. If he is out to have recurrent MSSA bacteremia we will need to undertake a broad source evaluation including imaging of the back and potentially a WBC tagged study with certain the cause of recurrent bacteremias. Can continue empiric IV piperacillin tazobactam and vancomycin for now. Overall patient has had significant clinical deterioration over the past several months. Patient is no longer ambulatory, is dependent for his ADLs at the snf staff. He has several decubitus ulcers for which she is following with wound care. Reportedly he does not tolerate dialysis well and may have been recommended to discontinue dialysis. He has had recurrent episodes of sepsis including bacteremias and osteomyelitis requiring multiple rounds of antibiotics without any global overall benefit in spite recurrent rounds of antibiotics. His quality of life has deteriorated over the past several months. Will follow with blood cx results regarding next steps PDMP PDMP Reviewed: Not Reviewed Consult Attestations Medical Necessity Statement: per admitting Coding Level of Care Code Acute Code for Chg Fwd High MDM includes number and complexity of problems actively addressed during encounter, amount and/or complexity of data reviewed/ordered and described risk of complication, morbidity or mortality of management as documented Diagnoses Altered mental status R41.82 Leukocytosis D72.829 Pneumonia J18.9
[2025-02-18 16:46] LABS: Troponin 5 6HR 340.0 ng/L (0-15); Troponin 5 6HR Delta -16.0 ng/L (0-12)
--- NOTE | 2025-02-18 17:47 | ECG_ITS ---
[employer] Test Date: 2025-02-18 Pat Name: Kt Jett Department: Room: ICU11 Gender: Male Allergy And Immunology Specialist: : 1965 Requested By: Sacha Fountain Order Number: [id number] Reading MD: DIDIER CHEUNG Measurements Intervals Bern Rate: 103 P: 0 IL: 0 QRS: 76 QRSD: 178 T: 45 QT: 414 QTc: 543 Interpretive Statements ATRIAL FIBRILLATION WITH RAPID VENTRICULAR RESPONSE RIGHT BUNDLE BRANCH BLOCK [120+ ms QRS DURATION, UPRIGHT V1, 40+ ms S IN I/aVL/V4/V5/V6] ST DEVIATION AND MODERATE T-WAVE ABNORMALITY, CONSIDER ANTEROLATERAL ISCHEMIA [-0.1+ mV T-WAVE IN V3-V6] Compared to ECG 02/18/2025 10:41:03 T-wave abnormality now present Possible ischemia now present Sinus rhythm no longer present Myocardial infarct finding no longer present Electronically Signed On 02-22-2025 20:05:12 CDT by DIDIER CHEUNG [email or web address]
--- NOTE | 2025-02-18 18:55 | PC.NURSE ---
Blood pressure dropped during hemodyalysis and A-fib noted on manager cardiac cath. HR 130's. Notified Dr. Davenport. Orders given for amiodarone bolus and start amiodarone drip and notify Dr. Cruz and see what she wants to do about HD. Dr. Cruz notified per SIMON Bravo. Order given to stop dialysis and give 1liter of NS her HD machine.
[2025-02-18 19:05] LABS: MRSA PCR OZH (swab) NOT DETECTED (Negative)
[2025-02-18] MEDS: amiodarone 150 MG/100 ML PREMIX 400 MG IV (19:11)
[2025-02-18] MEDS: morphine 4 mg/mL SDV 1 mL 2 MG IVP (20:13)
[2025-02-18] MEDS: norepinephrine 4 MG/250 ML BAG 7.5 MG IV (22:38)
[2025-02-18 22:52] LABS: Lactate (Lactic Acid level) 1.6 mmol/L (0.5-2.2)
[2025-02-19] VITALS (33 sets, daily range): BP systolic 111–165; BP diastolic 50–91; PULSE 63–109; RESP 13–24; TEMP 37.1–37.2; O2SAT 83–98
[2025-02-19] MEDS: morphine 4 mg/mL SDV 1 mL 2 MG IVP ×4 (01:19→15:44)
[2025-02-19] MEDS: heparin 5,000 unit/mL INJ 1 mL 5000 UNIT SUBCUT (01:19)
[2025-02-19] MEDS: cefTRIAXone 2,000 mg SDV 2000 MG IVP (01:19)
[2025-02-19] MEDS: FUROsemide 10 mg/mL SDV 4mL 60 MG IVP ×2 (05:05→15:43)
[2025-02-19 05:55] LABS: Hematocrit 22.7 % (37-53); Hemoglobin 6.80 g/dL (11.27-16.99); Mean Corpuscular HGB Conc 30.0 g/dL (30-55); Mean Corpuscular Hemoglobin 30.2 pg (27-33); Mean Corpuscular Volume 100.9 fl (82-101); Nucleated Red Blood Cells % 0 %; Platelet Count 253 10^3/cmm (157-399); Red Blood Count 2.25 10^6/uL (3.85-5.65); White Blood Count 26.32 10^3/uL (3.29-11.43)
[2025-02-19 06:18] LABS: Alanine Aminotransferase < 5 U/L (0-41); Albumin Level 2.0 g/dL (3.5-5.2); Alkaline Phosphatase 227 U/L (40-130); Anion Gap 14.8 (5-19); Aspartate Amino Transferase 16 U/L (0-40); Blood Urea Nitrogen 31 mg/dL (6-20); Calcium 8.6 mg/dL (8.5-10.5); Carbon Dioxide 28 mmol/L (22-29); Chloride 93 mmol/L (98-107); Creatinine Clr Calc Pharmacy 27.8635; Globulin 3.5 g/dL (1.3-4.6); Glucose 204 mg/dL (65-115); Osmolality Calculated 286 mOsm/kg (285-295); Potassium 3.8 mmol/L (3.5-5.1); Sodium 132 mmol/L (136-145); Total Protein 5.5 g/dL (6.6-8.7)
--- NOTE | 2025-02-19 10:07 | USCV_ITS ---
JettKt Age: 59 Gender: M : 1965 Exam Date: 02/19/2025 11:38 Ordering Phys: Ines Boswell MD Technologist: Justice Caceres Exam Location: [facility] [place] Indication: look for vegetations? BP: 125 / 79 HR: 73 Rhythm: Sinus Technical Quality: Adequate MEASUREMENTS (Male / Female) Normal Values 2D ECHO LV Diastolic Diameter PLAX 6.6 cm 4.2 - 5.9 / 3.9 - 5.3 cm IVS Diastolic Thickness 1.2 cm 0.6 - 1.0 / 0.6 - 0.9 cm IVS Systolic Thickness 1.7 cm LVPW Diastolic Thickness 1.6 cm 0.6 - 1.0 / 0.6 - 0.9 cm LVPW Systolic Thickness 1.6 cm LVOT Diameter 2.0 cm LV Ejection Fraction 2D Teich 48.7 % LV Ejection Fraction MOD 4C 49.5 % LV Ejection Fraction MOD 2C 52.3 % LV Ejection Fraction 2C AL 50.5 % LA Diameter 4.8 cm RA Systolic Volume 4C AL 85.3 ml RA Systolic Volume 4C MOD 86.6 ml LA Sys Volume AL 98.3 cm cubed LA Sys Volume Index AL 40.5 cm cubed/m squared Aorta at Sinotubular Diameter 2.8 cm IVC Diameter 1.9 cm M-MODE LA Ao Ratio MM 1.8 AV Cusp Separation MM 1.7 cm DOPPLER AV Peak Velocity 252.3 cm/s LVOT Peak Velocity 102.0 cm/s AV Area Cont Eq vti 1.4 cm squared AV Area Cont Eq pk 1.3 cm squared MV Peak Velocity 152.0 cm/s MV Area PHT 4.3 cm squared Mitral E to A Ratio 1.3 TV Peak Velocity 276.7 cm/s TR Peak Velocity 308.0 cm/s TR Peak Gradient 37.9 mmHg TR Mean Velocity 244.0 cm/s TR Mean Gradient 25.4 mmHg TR Velocity Time Integral 73.3 cm PV Peak Velocity 180.0 cm/s RV Ejection Time 0.3 s FINDINGS Left Ventricle Normal left ventricular size, systolic function and wall thickness, with no regional wall motion abnormalities. Left ventricular ejection fraction is estimated at 60 %. Grade I/IV diastolic dysfunction (abnormal relaxation filling pattern), normal to mildly elevated filling pressures. Right Ventricle The right ventricle is normal in size and function. Right Atrium The right atrium is normal in size. Left Atrium Moderately increased left atrial size. Mitral Valve Thickened mitral valve. No mitral valve stenosis. Mild mitral valve regurgitation. Aortic Valve Possible Bicuspid Aortic larry, Moderate aortic valve calcification. Mild aortic valve stenosis, mean gradient 14.3 mmHg, OBDULIA 1.4 cm squared.trace aortic valve regurgitation. Tricuspid Valve Mild tricuspid valve regurgitation. Pulmonic Valve Trace pulmonary valve regurgitation. Pericardium Normal pericardium without effusion. Aorta Normal ascending aorta dimension. IVC The inferior vena cava appears normal. CONCLUSIONS Normal left ventricular size, systolic function and wall thickness, with no regional wall motion abnormalities. Left ventricular ejection fraction is estimated at 60 %. Grade I/IV diastolic dysfunction (abnormal relaxation filling pattern), normal to mildly elevated filling pressures. Moderately increased left atrial size. Possible Bicuspid Aortic larry, Moderate aortic valve calcification. Mild aortic valve stenosis, mean gradient 14.3 mmHg, OBDULIA 1.4 cm squared.trace aortic valve regurgitation. Mild tricuspid valve regurgitation. There is no pericardial effusion. Right atrial pressure is around 5 mm of mercury. Herbie Clark MD (Electronically Signed) Final Date: 19 February 2025 21:29 S
--- NOTE | 2025-02-19 10:30 | PC.NURSE ---
Dr. Boswell called to check on patient. Updated on current status and vital signs. Levophed currently off and amiodarone infusing at 0.5. Notified Dr. Boswell of patients wounds. Dr. Cordova consulted. Dr. Cordova to bedside, wounds assessed. Dr. Nesbitt spoke with Dr. Boswell, santyl ointment ordered for sacrum ad will plan of debridement of sacrum after cardiac workup done.
[2025-02-19] MEDS: dilTIAZem ER (24HR) 120 mg Capsule PO (10:55)
[2025-02-19 11:17] LABS: Lactate (Lactic Acid level) 1.6 mmol/L (0.5-2.2)
[2025-02-19 11:18] LABS: Hematocrit 22.3 % (37-53); Hemoglobin 6.70 g/dL (11.27-16.99); Mean Corpuscular HGB Conc 30.0 g/dL (30-55); Mean Corpuscular Hemoglobin 30.7 pg (27-33); Mean Corpuscular Volume 102.3 fl (82-101); Nucleated Red Blood Cells % 0 %; Platelet Count 254 10^3/cmm (157-399); Red Blood Count 2.18 10^6/uL (3.85-5.65); White Blood Count 24.23 10^3/uL (3.29-11.43)
--- NOTE | 2025-02-19 11:29 | XRR_ITS ---
PROCEDURE INFORMATION: Exam: XR Chest Exam date and time: 02/19/2025 2:31 PM Age: 59 years old Clinical indication: Dyspnea; Fluid retention, renal disease; Additional info: Monitor fluid status TECHNIQUE: Imaging protocol: Radiologic exam of the chest. Views: 1 view. COMPARISON: CT angio chest PE protcl [id number] 02/18/2025 12:08 PM FINDINGS: Lungs: No significant pulmonary vascular congestion. Streaky opacities in the bilateral lower lobes. Silhouetting of the left hemidiaphragm. Pleural spaces: Blunting of the left costophrenic angle. No pneumothorax. Heart/Mediastinum: Mild cardiomegaly. Bones/joints: Unremarkable. XR/XR chest 1V portable [id number] IMPRESSION: 1. Blunting of the left costophrenic angle which can be seen with small pleural effusion. 2. Silhouetting of the left hemidiaphragm which can be seen with pleural effusion or atelectasis/consolidation. 3. Streaky opacities in the bilateral lower lobes. Differential diagnosis includes subsegmental atelectasis or multifocal infiltrates. 4. Mild cardiomegaly.
[2025-02-19] MEDS: piperacillin-tazobactam 2.25 GM in sodium chloride 0.9% (plus) 50 ML IV (11:36)
--- NOTE | 2025-02-19 11:50 | P.PN_ITS ---
Subjective 2 Subjective: on 2L O2 NC in sinus rhythm Medications: Reviewed: Yes Vitals/I&O/Wt Last Vital Signs Temp 98.9 F 02/19/25 08:00 Pulse 75 02/19/25 11:00 Resp 16 02/19/25 11:00 BP 125/79 02/19/25 11:00 Pulse Ox 96 02/19/25 11:00 O2 Del Method Nasal Cannula 02/19/25 10:00 O2 Flow Rate 2 02/19/25 10:00 02/18/25 02/19/25 02/19/25 22:59 06:59 14:59 Intake Total 2200 / 2200 391.690 / 2591.690 48.248 / 48.248 Output Total 1053 / 1053 50 / 1103 Balance 1147 / 1147 341.690 / 1488.690 48.248 / 48.248 Weight last 48 hrs Weight 112.7 kg Weight 112 kg Weight 127.006 kg Physical Exam 2 Narrative: Confused, no acute distress c/o pain Physical exam limited due to telemedicine visit Data 02/19/25 10:39 02/19/25 05:49 Micro: Microbiology 02/18/25 10:21 Blood Culture - Preliminary Blood NEGATIVE TO DATE 02/19/25 10:30 Occult Blood (FIT) - Final Stool - Stool Aspirate 02/18/25 11:00 Blood Culture - Preliminary Blood NEGATIVE TO DATE A&P Assessment and plan 1. ESRD (end stage renal disease): Plan: 1. End-stage renal disease: On MWF schedule, missed HD on Friday. Now presented with altered mental status and fluid overload. s/p HD yesterday , not completed full treatment due to rapid A fib and hypotension. will plan HD in AM 2. Encephalopathy, workup in process per primary team, HD as above 3. History of CHF with volume overload and anasarca, 4. Anemia, jehovah witness , S/P Epogen 5. Rapid A fib , now converted to NSR Patient evaluated using audiovisual cart. Time spent 40 minutes PDMP PDMP Reviewed: Not Reviewed Attestations 2 Medical Necessity Statement*: per [facility] Coding Level of Care Code Acute Code for Chg Fwd Diagnoses ESRD (end stage renal disease) N18.6
[2025-02-19 12:01] LABS: C.Diff PCR (Lab) NEGATIVE (Negative)
--- NOTE | 2025-02-19 12:31 | PM.CONSULT ---
Providers/Reason For Consult Consulting Physician/Specialty*: Dr. Thacker general surgery Reason for Consult*: Decubitus ulcer Attending Physician: Ines Boswell MD Primary Care Provider: Sandy Kelly MD History of Present Illness History of Present Illness Kt Jett is a 59 year old male whom surgery was consulted for decubitus ulcer. Patient has a large decubitus ulcer with a scab. Patient has multiple medical problems. Septic multiple possible sources. Medications/Allergies Home Medications ?Medication ?Instructions ?Recorded ?Confirmed ?Last Taken ?Type pantoprazole 40 mg tablet,delayed 40 mg PO DAILY 07/13/19 02/18/25 02/18/25 History release vitamin B complex-vitamin C-folic 1 tab PO DAILY 03/03/22 02/18/25 02/18/25 History acid 0.8 mg tablet Diabetic shoes with Accomadative #1 ea 08/14/22 02/18/25 Unknown Rx Insoles vit B,C-folic ac 800 mcg-zinc 12.5 1 tab PO DAILY 07/11/23 02/18/25 02/18/25 History mg-selen-D3 2,000 unit-vit E tablet (RenaPlex-D) latanoprost 0.005 % eye drops 1 drp ophthalmic (eye) DAILY 09/14/24 02/18/25 02/17/25 19:00 History polyethylene glycol 3350 17 4 g PO DAILY #238 grams 11/23/24 02/18/25 02/18/25 Rx gram/dose oral powder (Miralax) dorzolamide 22.3 mg-timolol 6.8 1 drp ophthalmic (eye) BID 12/08/24 02/18/25 02/18/25 History mg/mL eye drops naloxone 4 mg/actuation nasal 4 mg intranasal Q2M PRN opioid 12/10/24 02/18/25 Unknown Rx spray (Narcan) overdose #2 ea bisacodyl 10 mg rectal suppository 10 mg OR DAILY PRN Constipation 12/12/24 02/18/25 Unknown History (Dulcolax (bisacodyl)) aspirin 81 mg tablet,delayed 81 mg PO DAILY #30 tabs 12/24/24 02/18/25 02/18/25 Rx release atorvastatin 40 mg tablet 40 mg PO BEDTIME #30 tabs 12/24/24 02/18/2502/17/25 19:00 Rx hydrocodone 10 mg-acetaminophen 1 tab PO Q6H PRN Pain 12/28/24 02/18/25 02/18/25 History 325 mg tablet insulin lispro 100 unit/mL See Rx Instructions .Route .COMPLEX 12/28/24 02/18/25 02/18/25 History subcutaneous solution (Humalog U-100 Insulin) nitroglycerin 0.4 mg sublingual 0.4 mg sublingual Q5M PRN Heart 12/28/24 02/18/25 Unknown History tablet (Nitrostat) PAIN sodium phosphates 19 gram-7 118 ml OR DAILY PRN Constipation 12/28/24 02/18/25 Unknown History gram/118 mL enema (Fleet Enema) citalopram 20 mg tablet (Celexa) 20 mg PO DAILY 02/18/25 02/18/25 02/18/25 History insulin glargine 100 unit/mL (3 8 unit SUBCUT DAILY 02/18/25 02/18/25 02/18/25 History mL) subcutaneous pen (Lantus Solostar U-100 Insulin) lanthanum 750 mg chewable tablet 750 mg PO TID 02/18/25 02/18/25 02/18/25 History Allergies Allergy/AdvReac Type Severity Reaction Status Date / Time No Known Allergies Allergy Verified 02/01/25 12:40 Current Medications Generic Name Dose Route Start Last Admin Trade Name Freq PRN Reason Stop Dose Admin Aspirin 300 mg 02/18/25 14:15 02/19/25 10:20 Aspirin 300 Mg Supp OR Not Given On Hold: 02/19/25 10:18 DAILY NATHANAEL Collagenase 1 applic 02/19/25 11:00 02/19/25 11:37 Collagenase Oint 30 Gm TOPICAL 1 applic DAILY NATHANAEL Administration Diltiazem HCl 120 mg 02/19/25 10:15 02/19/25 10:55 Diltiazem Er (24hr) 120 Mg Capsule PO 120 mg DAILY NATHANAEL Administration Furosemide 60 mg 02/18/25 13:50 02/19/25 05:05 Furosemide 10 Mg/Ml Sdv 4ml IVP 60 mg BID@0400,1600 NATHANAEL Administration Amiodarone HCl/Dextrose 360 mg in 200 mls @ 0 mls/hr 02/18/25 18:55 02/19/25 08:00 Nexterone IV 0.5 mg/min .Q0M NATHANAEL 16.67 mls/hr Protocol Administration Per Protocol Norepinephrine Bitartrate 4 mg in 250 mls @ 0 mls/hr 02/18/25 22:30 02/19/25 08:10 Levophed IV 0 mcg/min .Q0M NATHANAEL 0 mls/hr Protocol Titration Per Protocol Morphine Sulfate 2 mg 02/19/25 12:10 02/19/25 12:18 Morphine 4 Mg/Ml Sdv 1 Ml IVP 2 mg Q4H PRN Administration SEVERE PAIN PFSH Acute PFSH: Medical History (Updated 02/19/25 @ 21:26 by Chase Thacker MD) NSTEMI (non-ST elevated myocardial infarction) Hypertension Essential hypertension MSSA bacteremia Infection due to Port-A-Cath Anemia Hemodialysis access site with arteriovenous graft CAD (coronary artery disease) Hx of staphylococcal infection Chronic back pain Osteoarthritis Fibromyalgia GERD (gastroesophageal reflux disease) CKD (chronic kidney disease) Lumbar disc disease End stage renal disease on dialysis Diabetes mellitus Hypertensive emergency Congestive heart failure ESRD (end stage renal disease) Diabetes mellitus, type II Cardiomyopathy Surgical History Status post insertion of hemodialysis catheter Status post peritoneal dialysis History of coronary artery stent placement S/P tonsillectomy S/P carpal tunnel release H/O circumcision History of cataract surgery Family History Mother Aneurysm Grandmother Cancer Sister Cancer Social History Smoking and tobacco/nicotine status: unknown if used tobacco/nicotine Alcohol intake: never Substance/Drug Use: former 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 Clean since 1991 Lives independently: Yes Household members: none Housing: House Marital status: service: No Current occupational status: disabled Vitals/I&O/Wt Last Vital Signs Temp 98.9 F 02/19/25 08:00 Pulse 75 02/19/25 11:00 Resp 14 02/19/25 12:18 BP 125/79 02/19/25 11:00 Pulse Ox 96 02/19/25 11:00 O2 Del Method Nasal Cannula 02/19/25 10:00 O2 Flow Rate 2 02/19/25 10:00 02/18/25 02/19/25 02/19/25 22:59 06:59 14:59 Intake Total 2200 / 2200 391.690 / 2591.690 48.248 / 48.248 Output Total 1053 / 1053 50 / 1103 Balance 1147 / 1147 341.690 / 1488.690 48.248 / 48.248 Weight last 48 hrs Weight 248 lb 7.375 oz Weight 246 lb 14.684 oz Weight 280 lb Physical Exam Narrative: Chest: Unlabored breathing room air. No lymphadenopathy. Heart: Regular rate and rhythm. Abdomen: Soft, nontender, nondistended. No masses or lymphadenopathy. Decubitus ulcer about 11 x 10 cm with a scab on top Data 02/19/25 10:39 02/19/25 05:49 Micro: Microbiology 02/18/25 10:21 Blood Culture - Preliminary Blood NEGATIVE TO DATE 02/19/25 10:30 Occult Blood (FIT) - Final Stool - Stool Aspirate 02/18/25 11:00 Blood Culture - Preliminary Blood NEGATIVE TO DATE A&P Assessment and plan 1. Decubitus ulcer: Plan: 59-year-old male who has a large decubitus ulcer. Patient does not want to debridement in the operating room. Recommend chemical debridement with Santyl. Rest of care per hospitalist. PDMP PDMP Reviewed: Not Reviewed Coding Level of Care Code 79110 Diagnoses Decubitus ulcer L89.90
--- NOTE | 2025-02-19 16:33 | P.PN_ITS ---
Subjective 2 Subjective: The patient was seen in the morning with agony and was in discomfort. The patient is on 2 L nasal cannula. Extended discussion has been done with the patient/family about his grim prognosis and further complication with risk and benefits of the treatment. After thorough discussion and counseling the patient/family was done without any language barrier, agreed for DNR and comfort measures considering the patient critical illness and clinical deterioration. The patient/family wishes were respected and carried on with respect Medications: Reviewed: Yes Vitals/I&O/Wt Last Vital Signs Temp 98.8 F 02/19/25 16:00 Pulse 70 02/19/25 16:00 Resp 19 H 02/19/25 16:00 BP 165/60 02/19/25 16:00 Pulse Ox 94 02/19/25 16:00 O2 Del Method Nasal Cannula 02/19/25 16:00 O2 Flow Rate 2 02/19/25 16:00 02/19/25 02/19/25 02/19/25 06:59 14:59 22:59 Intake Total 391.690 / 2591.690 48.248 / 48.248 134.749 / 182.997 Output Total 50 / 1103 Balance 341.690 / 1488.690 48.248 / 48.248 134.749 / 182.997 Weight last 48 hrs Weight 112.7 kg Weight 112 kg Weight 127.006 kg Physical Exam 2 Narrative: General: Alert oriented x3, patient seen in distress and mild agony due to the sacral sore HEENT: Normocephalic, atraumatic, EOMI, breathing on 2 L nasal cannula Cardio: Regular rate rhythm however murmurs or any other added sounds were not appreciated due to thick chest wall and could not be commented upon Respiratory: Normal vesicular breathing with bilateral equal air entry and bibasal inspiratory crepitations. Full respiratory examination was difficult due to morbid obesity GI: Abdomen soft, nontender, nondistended, normoactive bowel sounds present all 4 quadrants, Neuro: No acute neurological deficit Behavior: Appropriate and cooperative Extremities: Bilateral pedal edema present Skin: Sacral decubitus ulcer unstageable Data 02/19/25 10:39 02/19/25 05:49 Micro: Microbiology 02/18/25 10:21 Blood Culture - Preliminary Blood NEGATIVE TO DATE 02/19/25 10:30 Occult Blood (FIT) - Final Stool - Stool Aspirate 02/18/25 11:00 Blood Culture - Preliminary Blood NEGATIVE TO DATE A&P Assessment and plan 1. Anasarca: 2. Encephalopathy acute: 3. Sepsis: 4. Protein calorie malnutrition: 5. Anemia in chronic kidney disease: Plan: The patient having features of possible sepsis with marked leukocytosis, drop in hemoglobin/acute on chronic anemia secondary to CKD or other source, possible source of sepsis yet to be identified, unstageable sacral ulcer, anasarca and electrolyte imbalance. The patient and the family had a thorough discussion about his prognosis. After thorough discussion and counseling the plan of care and management with the family/patient considering his grim prognosis, multiple comorbidities, benefits and risks of treatments and further complications that might happen, the family understands without any language barrier and agreed with comfort measures and preferred to have DNR as a CODE STATUS. Proceeded with comfort measures orders as per patient/family wishes and carried on with respect. All questions and concerns discussed and answered appropriately PDMP PDMP Reviewed: Not Reviewed Attestations 2 Medical Necessity Statement*: The patient will stay further as a hospice care Time Spent in Patient Care: Greater than 35 minutes (>than 50% of time spent in counselling and/or direct pt care on unit) . The high probability of a clinically significant, sudden or life threatening deterioration, as referenced in this documentation, required my full and direct attention, intervention and personal management. The critical care time shown is in addition to time spent performing any reported separately billable procedures and includes the following: [x] Data and vital sign review and interpretation [x ] Patient assessment, examination and intervention [x] Medication orders and management [x] Patient/Family updates as able [x] Care Coordination and Documentation. Critical Care Time: Critical Care Time (min): 45 Other Attestations: Patient condition has been discussed at length with the patient/family, I have independently reviewed the chart labs imaging and diagnostics and EKG. The patient/family has been informed about the current condition and further plan of care. Agreed with the plan of care and understood without any language barrier. This documentation was created by [employer] fermenting cellars supervisor software. Every effort was made to ensure accuracy of fermenting cellars supervisor. Any obvious errors or omissions should be clarified with the author of the document. Coding Level of Care Code Critical Care >/= 30 minutes Diagnoses Anasarca R60.1 Encephalopathy acute G93.40 Sepsis A41.9 Protein calorie malnutrition E46 Anemia in chronic kidney disease N18.9; D63.1
--- NOTE | 2025-02-19 16:41 | PC.NURSE ---
Family, patient, and POA had lengthy discussion with doctors and among themselves. Decision made to make the patient a comfort care patient and not continue with HD and not precede with surgery for sacral wound. Notified Dr. Thacker of change in patient status to comfort care. Notified Dr. Quiroga of change in patient status to comfort care.
--- NOTE | 2025-02-19 18:23 | PM.MISC ---
Miscellaneous Note Purpose of Documentation: patient's family has decided to transition him to comfort care today which is an appropriate transition given his advancong comorbidities and deteriorating quality of life. ID will sign off. Please call with any questions or concerns
[2025-02-19] MEDS: morphine 4 mg/mL SDV 1 mL IVP (22:52)
[2025-02-20] VITALS (15 sets, daily range): BP systolic 137–164; BP diastolic 51–60; PULSE 72–78; RESP 17–26; TEMP 36.2–37.3; O2SAT 89–92
[2025-02-20] MEDS: morphine 4 mg/mL SDV 1 mL IVP ×2 (07:42→13:12)
--- NOTE | 2025-02-20 11:57 | P.PN_ITS ---
Subjective 2 Subjective: The patient was seen in the morning lying comfortably and sleeping The patient is on 2 L nasal cannula. Extended discussion has been done with the patient/family about his grim prognosis and further complication with risk and benefits of the treatment. After thorough discussion and counseling the patient/family was done without any language barrier, agreed for DNR and comfort measures considering the patient critical illness and clinical deterioration. The patient/family wishes were respected and carried on with respect Medications: Reviewed: Yes Vitals/I&O/Wt Last Vital Signs Temp 99.2 F 02/20/25 08:00 Pulse 75 02/20/25 10:00 Resp 18 02/20/25 10:00 BP 143/54 02/20/25 10:00 Pulse Ox 91 02/20/25 10:00 O2 Del Method Nasal Cannula 02/20/25 10:00 O2 Flow Rate 2 02/20/25 10:00 02/19/25 02/20/25 02/20/25 22:59 06:59 14:59 Intake Total 134.749 / 182.997 60 / 60 Output Total 0 / 0 Balance 134.749 / 182.997 60 / 60 Weight last 48 hrs Weight 112.7 kg Weight 112 kg Weight 127.006 kg Physical Exam 2 Narrative: General: Alert oriented x3, lying comfortably on 2 L oxygen through nasal cannula HEENT: Normocephalic, atraumatic, EOMI, breathing on 2 L nasal cannula Cardio: Regular rate rhythm however murmurs or any other added sounds were not appreciated due to thick chest wall and could not be commented upon Respiratory: Normal vesicular breathing with bilateral equal air entry on auscultation of the upper lateral and mid zones. Since moving the patient was creating agony therefore unable to comment on the posterior chest and lower zones. Full respiratory examination was difficult due to morbid obesity GI: Abdomen soft, nontender, nondistended, normoactive bowel sounds present all 4 quadrants, Neuro: No acute neurological deficit Behavior: Appropriate and cooperative Extremities: Bilateral pedal edema present Skin: Sacral decubitus ulcer unstageable Data 02/19/25 10:39 02/19/25 05:49 Micro: Microbiology 02/18/25 10:21 Blood Culture - Preliminary Blood NEGATIVE TO DATE 02/19/25 10:30 Occult Blood (FIT) - Final Stool - Stool Aspirate 02/18/25 11:00 Blood Culture - Preliminary Blood NEGATIVE TO DATE A&P Assessment and plan 1. Altered mental status: 2. Leukocytosis: 3. Pneumonia: Plan: 59-year-old male with a complex past medical history as outlined above, presenting to the hospital today with altered mental status, leukocytosis. Differentials at this time remain broad. May be related to pneumonia, wounds over the sacrum and gluteal regions, though they do not appear to be grossly infected, potential bacteremia, potential C. difficile given recent antibiotic use and current diarrhea.. Blood culture has been taken and negative to this date. Overall patient has had significant clinical deterioration over the past several months. Patient is no longer ambulatory, is dependent for [facility]Ls at the [facility]. He has several decubitus ulcers for which she is following with wound care. Reportedly he does not tolerate dialysis well and may have been recommended to discontinue dialysis. He has had recurrent episodes of sepsis including bacteremias and osteomyelitis requiring multiple rounds of antibiotics without any global overall benefit in spite recurrent rounds of antibiotics. His quality of life has deteriorated over the past several months. The patient and the family had a thorough discussion about his prognosis. After thorough discussion and counseling the plan of care and management with the family/patient considering his grim prognosis, multiple comorbidities, benefits and risks of treatments and further complications that might happen, the family understands without any language barrier and agreed with comfort measures and preferred to have DNR as a CODE STATUS. Proceeded with comfort measures orders as per patient/family wishes and carried on with respect. All questions and concerns discussed and answered appropriately PDMP PDMP Reviewed: Not Reviewed Attestations 2 Medical Necessity Statement*: Kt Jett's hospital stay will require greater than 2 midnights for for hospice care protocol since the patient is having sepsis septic shock and multiple comorbidities with current prognosis Time Spent in Patient Care: 16 - 35 minutes (>than 50% of time sp ent in counselling and/or direct pt care on unit) . The high probability of a clinically significant, sudden or life threatening deterioration of the patient's [] system(s) required my full and direct attention, intervention and personal management. The critical care time is as shown. This time is in addition to time spent performing any reported procedures but includes the following: [x] Data and vital sign review and interpretation [x] Patient assessment, examination and intervention [x] Documentation [x] Medication orders and management Critical Care Time: Critical Care Time (min): 35 Other Attestations: Patient condition has been discussed at length with the patient/family, I have independently reviewed the chart labs imaging and diagnostics and EKG. I have discussed the goals of care and code status with the patient/family/NOK/legal exhibit display representative, and documented accordingly. The patient/family has been informed about the current condition and further plan of care. Agreed with the plan of care and understood without any language barrier. This documentation was created by [employer] director of research and development software. Every effort was made to ensure accuracy of director of research and development. Any obvious errors or omissions should be clarified with the author of the document. Coding Level of Care Code Critical Care >/= 30 minutes Diagnoses Altered mental status R41.82 Leukocytosis D72.829 Pneumonia J18.9
[2025-02-20] MEDS: morphine 4 mg/mL SDV 1 mL 2 MG IVP (21:51)
[2025-02-21] VITALS (14 sets, daily range): BP systolic 140–163; BP diastolic 54–60; PULSE 76–81; RESP 12–21; TEMP 36.4–37.3; O2SAT 89–92
[2025-02-21] MEDS: morphine 4 mg/mL SDV 1 mL IVP ×3 (03:44→17:05)
--- NOTE | 2025-02-21 10:56 | PC.SOCIAL ---
IMM Update Updated pt on IMM. No questions voiced. Provided pt a copy. Initialed, dated, & timed a copy & placed in chart.
--- NOTE | 2025-02-21 11:39 | PM.DCS ---
Discharge Providers Date of Admission: 02/18/25 14:52 Date of Discharge: February 21, 2025 Attending Provider at Admission: Isaiah Davenport Attending Provider at Discharge: Ines Boswell MD Primary Care Provider: Sandy Kelly MD Diagnoses at Discharge Discharge Diagnosis 1. Altered mental status: 2. Leukocytosis: 3. Pneumonia: Reason for Visit Reason for Visit: ams Brief History: Kt Jett is a 59 year old male with DM2, CAD, CHF, end-stage renal disease (ESRD) on Friday/Friday/Friday hemodialysis who was brought from his skilled nursing to the emergency department after missing his Friday dialysis session and being noted to be confused. In the emergency department he appeared fluid-overloaded but was afebrile. Laboratory data showed leukocytosis 26 000/?L, hemoglobin 7.4 g/dL, platelets 261 K/?L, sodium 133 mEq/L, potassium 4.1 mEq/L, bicarbonate 29 mEq/L, blood urea nitrogen 44 mg/dL, creatinine 4.8 mg/dL, and arterial blood gas pH 7.47/Marine? 44.7 mm Hg/Da? 68.5 mm Hg. An electrocardiogram demonstrated right bundle branch block with Q waves in V1?V2 and aVL. He has a history of methicillin-sensitive Staphylococcus aureus bacteremia, aspiration pneumonia, and a small right deltoid abscess noted during a December hospitalization; a seroma near the fistula was also documented at that time. He was discharged on a six-week course of IV cefazolin but did not attend the planned infectious disease follow-up. Hospital Course Hospital Course The patient was admitted as a case of sepsis with likely septic shock with source to be identified.He had unstageable sacral ulcer anasarca and unable to tolerate hemodialysis during his stay. With electrolyte imbalance that was been monitored and corrected accordingly. He is also Alevism and encountered hemoglobin dropped. I have discussed patient prognosis does not looks grim therefore the patient and the family had a thorough discussion about his prognosis.After thorough discussion and counseling the plan of care and management with the family/patient considering his grim prognosis, multiple comorbidities, benefits and risks of treatments and further complications that might happen, the family understands without any language barrier and agreed with comfort measures and preferred to have DNR as a CODE STATUS. Proceeded with comfort measures orders as per patient/family wishes and carried on with respect. All questions and concerns discussed and answered appropriately Patient condition has been discussed at length with the patient/family, I have independently reviewed the chart labs imaging and diagnostics and EKG. I have discussed the goals of care and code status with the patient/family/NOK/legal international sales representative, and documented accordingly. The patient/family has been informed about the current condition and further plan of care. Agreed with the plan of care and understood without any language barrier. This documentation was created by [email or web address] senior hadoop developer software. Every effort was made to ensure accuracy of senior hadoop developer. Any obvious errors or omissions should be clarified with the author of the document. Physical Exam Narrative: General: Alert oriented x3, lying comfortably on 2 L oxygen through nasal cannula HEENT: Normocephalic, atraumatic, EOMI, breathing on 2 L nasal cannula Cardio: Regular rate rhythm however murmurs or any other added sounds were not appreciated due to thick chest wall and could not be commented upon Respiratory: Normal vesicular breathing with bilateral equal air entry on auscultation of the upper lateral and mid zones. Since moving the patient was creating agony therefore unable to comment on the posterior chest and lower zones. Full respiratory examination was difficult due to morbid obesity GI: Abdomen soft, nontender, nondistended, normoactive bowel sounds present all 4 quadrants, Neuro: No acute neurological deficit Behavior: Appropriate and cooperative Extremities: Bilateral pedal edema present Skin: Sacral decubitus ulcer unstageable Urinary Catheter Management: Barajas: Cath Placed During This Visit: no Reason for Continuing Indwelling Catheter: Accurate Measurement of Urinary Output in Critically Ill Patients Discharge Data Studies Completed and Pending Completed Studies During Hospitalization Category Date Time Status CT angio chest PE protcl [id number] Stat Cat Scan 02/18/25 11:[address] head wo con* [id number] Stat Cat Scan 02/18/25 10:03 Completed XR chest 1V portable [id number] Routine Exams 02/19/25 11:29 Completed XR chest 1V portable [id number] Stat Exams 02/18/25 10:03 Completed CV. echo complete* [id number] Stat Ultrasound 02/19/25 10:07 Completed US soft tissue and or extremity [US soft tissue/ Ultrasound 02/18/25 13:49 Completed extremity [id number]] Stat Pending at discharge Category Date Time Status Blood Culture Stat Lab 02/18/25 10:21 Results Radiology Impressions Head CT 02/18/25 10:03 IMPRESSION: 1. No acute intracranial hemorrhage or edema. 2. Mild small vessel disease and atrophy. No prior infarct. 3. Extensive atherosclerotic plaques in the distal vertebral and intracranial carotid arteries. Chest CTA 02/18/25 11:22 IMPRESSION: 1. Suboptimal opacification of the pulmonary arteries. 2. No central pulmonary emboli. 3. Marked cardiomegaly. 4. Small pericardial effusion. 5. Extensive soft tissue anasarca. 6. LEFT upper and RIGHT lower lobe consolidations consistent with segmental pneumonia. Additional atelectatic changes. Soft Tissue Ultrasound 02/18/25 13:49 IMPRESSION: Unremarkable US. Chest X-Ray 02/19/25 11:29 IMPRESSION: 1. Blunting of the left costophrenic angle which can be seen with small pleural effusion. 2. Silhouetting of the left hemidiaphragm which can be seen with pleural effusion or atelectasis/consolidation. 3. Streaky opacities in the bilateral lower lobes. Differential diagnosis includes subsegmental atelectasis or multifocal infiltrates. 4. Mild cardiomegaly. Laboratory Results WBC 24.23 10^3/uL (3.29-11.43) H 02/19/25 10:39 RBC 2.18 10^6/uL (3.85-5.65) L 02/19/25 10:39 Hgb 6.70 g/dL (11.27-16.99) L 02/19/25 10:39 Hct 22.3 % (37-53) L 02/19/25 10:39 MCV 102.3 fl (82-101) H 02/19/25 10:39 MCH 30.7 pg (27-33) 02/19/25 10:39 MCHC 30.0 g/dL (30-55) 02/19/25 10:39 RDW 15.9 % (12.1-15.1) H 02/19/25 10:39 Plt Count 254 10^3/cmm (157-399) 02/19/25 10:39 MPV 10.2 fL (7.4-10.4) 02/19/25 10:39 Neut % (Auto) 90.2 % 02/19/25 10:39 Lymph % (Auto) 4.3 % 02/19/25 10:39 [place]orne % (Auto) 3.5 % 02/19/25 10:39 Eos % (Auto) 0.2 % 02/19/25 10:39 Baso % (Auto) 0.2 % 02/19/25 10:39 Neut # (Auto) 21.84 10^3/uL (1.8-7.7) H 02/19/25 10:39 Lymph # (Auto) 1.0 10^3/uL (0.8-4.8) 02/19/25 10:39 [place] # (Auto) 0.9 10^3/uL (0.2-0.9) 02/19/25 10:39 Eos # (Auto) 0.1 10^3/uL (0.0-0.8) 02/19/25 10:39 Baso # (Auto) 0.1 10^3/uL (0.0-0.1) 02/19/25 10:39 Nucleated RBC % (auto) 0 % 02/19/25 10:39 Nucleated RBCs # 0.0 /100WBC 02/19/25 10:39 Specimen Type Arterial 02/18/25 11:15 Sample Site Radial, left 02/18/25 11:15 ABG pH 7.47 (7.35-7.45) H 02/18/25 11:15 ABG pCO2 44.7 mmHg (35-45) 02/18/25 11:15 ABG pO2 68.5 mmHg (80.0-100.0) L 02/18/25 11:15 ABG PO2/FiO2 Ratio 244 02/18/25 11:15 ABG HCO3 32.6 mmol/L (22-26) H 02/18/25 11:15 ABG O2 Saturation 95.1 02/18/25 11:15 ABG Base Excess 8.1 mmol/L (-2.0-2.0) H 02/18/25 11:15 Eliazar Test Pos 02/18/25 11:15 A-a O2 Gradient 9.9 mmHg (5-10) 02/18/25 11:15 Hematocrit 26.3 % (42-52) L 02/18/25 11:15 Hgb O2 Saturation 92.0 % (95-100) L 02/18/25 11:15 Carboxyhemoglobin 2.4 %THgb (0.4-20.1) 02/18/25 11:15 Methemoglobin 0.8 % (0.4-1.5) 02/18/25 11:15 Total Hemoglobin 8.6 g/dL (14-18) L 02/18/25 11:15 Sodium 132.0 mmol/L (131-143) 02/18/25 11:15 Potassium 3.9 mmol/L (3.5-5.0) 02/18/25 11:15 Glucose 224.0 mg/dL (70-115) H 02/18/25 11:15 Ionized Calcium 1.3 mmol/L (1.1-1.4) 02/18/25 11:15 O2 Delivery Device Nc 02/18/25 11:15 O2 Liters/Min 2.0 % 02/18/25 11:15 FiO2 28.0 % 02/18/25 11:15 Car Packer ID glc 02/18/25 11:15 Sodium 132 mmol/L (136-145) L 02/19/25 05:49 Potassium 3.8 mmol/L (3.5-5.1) 02/19/25 05:49 Chloride 93 mmol/L (98-107) L 02/19/25 05:49 Carbon Dioxide 28 mmol/L (22-29) 02/19/25 05:49 Anion Gap 14.8 (5-19) 02/19/25 05:49 BUN 31 mg/dL (6-20) H 02/19/25 05:49 Creatinine 3.7 mg/dL (0.7-1.2) H 02/19/25 05:49 GFR Calculation 16.9 mL/min (90-130) L 02/19/25 05:49 Glucose 204 mg/dL (65-115) H 02/19/25 05:49 Calculated Osmolality 286 mOsm/kg (285-295) 02/19/25 05:49 Lactate 1.6 mmol/L (0.5-2.2) 02/19/25 10:39 Calcium 8.6 mg/dL (8.5-10.5) 02/19/25 05:49 Total Bilirubin 0.6 mg/dL (0.15-1.2) 02/19/25 05:49 AST 16 U/L (0-40) 02/19/25 05:49 ALT < 5 U/L (0-41) 02/19/25 05:49 Alkaline Phosphatase 227 U/L (40-130) H 02/19/25 05:49 Creatine Kinase 16 U/L (39-308) L 02/18/25 10:21 Troponin T Baseline 356 ng/L (0-15) H* 02/18/25 10:21 Troponin T 120 Minute 336.0 ng/L (0-15) H 02/18/25 12:28 Delta Troponin T -20.0 ABS# (0-10) L 02/18/25 12:28 Troponin T Hi Sens 6Hr 340.0 ng/L (0-15) H 02/18/25 16:10 Troponin T Hi Sens 6Hr Delta -16.0 ng/L (0-12) L 02/18/25 16:10 Total Protein 5.5 g/dL (6.6-8.7) L 02/19/25 05:49 Albumin 2.0 g/dL (3.5-5.2) L 02/19/25 05:49 Globulin 3.5 g/dL (1.3-4.6) 02/19/25 05:49 Vitamin B12 1945 pg/mL (232-1245) H 02/18/25 10:21 Urine Color Dark yellow (Yellow) A 02/18/25 13:03 Urine Appearance Clear (CLEAR) 02/18/25 13:03 Urine pH 8.5 (5-7) A 02/18/25 13:03 Ur Specific [place] 1.015 (1.005-1.030) 02/18/25 13:03 Urine Protein 3+ (Negative) A 02/18/25 13:03 Urine Glucose (UA) Trace (Normal) H 02/18/25 13:03 Urine Ketones Negative (Negative) 02/18/25 13:03 Urine Blood Negative (Negative) 02/18/25 13:03 Urine Nitrate Negative (Negative) 02/18/25 13:03 Urine Bilirubin 1+ (Negative) H 02/18/25 13:03 Urine Urobilinogen 0.2 mg/dL (Negative) 02/18/25 13:03 Ur Leukocyte Esterase Trace (Negative) A 02/18/25 13:03 Urine RBC 0-2 /hpf (0-2) 02/18/25 13:03 Urine WBC 0-5 /hpf (0-5) 02/18/25 13:03 Ur Squamous Epith Cells 0-5 /hpf (0-5) 02/18/25 13:03 Amorphous Sediment Not Reportable 02/18/25 13:03 Urine Bacteria None seen /hpf (NONE) 02/18/25 13:03 Hyaline Casts 2.05 /lpf 02/18/25 13:03 Nasal MRSA (PCR) Not detected (Negative) 02/18/25 17:22 Vancomycin Trough 15.7 ug/mL (10-15) H 02/19/25 05:49 C. difficile (PCR) Negative (Negative) 02/19/25 10:30 Vitals Last Vital Signs Temp 97.5 F L 02/21/25 08:00 Pulse 81 02/21/25 10:00 Resp 20 H 02/21/25 10:00 BP 157/55 02/21/25 10:00 Pulse Ox 89 L 02/21/25 10:00 O2 Del Method Nasal Cannula 02/20/25 18:00 O2 Flow Rate 2 02/20/25 18:00 Discharge Plan Discharge Patient Disposition: Home Condition: Stable Prescriptions: Continued (DME) Diabetic shoes with Accomadative Insoles See Rx Instructions .Route .MEDSUPPLY Qty: 1 0RF Rx Instructions: As directed by HOME latanoprost 0.005 % drops 1 drp ophthalmic (eye) DAILY hydrocodone-acetaminophen 10-325 mg tablet 1 tab PO Q6H PRN (Reason: Pain) Fleet Enema 19-7 gram/118 mL enema 118 ml ID DAILY PRN (Reason: Constipation) nitroglycerin [Nitrostat] 0.4 mg tablet, sublingual 0.4 mg sublingual Q5M PRN (Reason: Heart PAIN) Rx Instructions: do not exceed 3 doses per episode insulin lispro [Humalog U-100 Insulin] 100 unit/mL solution See Rx Instructions .ROUTE .COMPLEX Rx Instructions: Inject 6 units, subcut, 3 times daily, after meals, based on low-dose insulin sliding scale pantoprazole 40 mg Tablet,Delayed Release (Dr/Ec) 40 mg PO DAILY B complex-vitamin C-folic acid 0.8 mg Tablet 1 tab PO DAILY RenaPlex-D 800 mcg-12.5 mg -2,000 unit tablet 1 tab PO DAILY polyethylene glycol 3350 [Miralax] 17 gram/dose powder 4 g PO DAILY Qty: 238 0RF dorzolamide-timolol 22.3-6.8 mg/mL drops 1 drp ophthalmic (eye) BID naloxone [Narcan] 4 mg/actuation spray,non-aerosol 4 mg intranasal Q2M PRN (Reason: opioid overdose) Qty: 2 0RF Rx Instructions: spray 1 dose into ONE nostril; alternate nostrils w each dose until help arrives bisacodyl [Dulcolax (bisacodyl)] 10 mg Suppository 10 mg ID DAILY PRN (Reason: Constipation) atorvastatin 40 mg Tablet 40 mg PO BEDTIME Qty: 30 0RF aspirin 81 mg Tablet,Delayed Release (Dr/Ec) 81 mg PO DAILY Qty: 30 0RF citalopram [Celexa] 20 mg Tablet 20 mg PO DAILY lanthanum 750 mg Tablet,Chewable 750 mg PO TID Rx Instructions: administer with food; chew thoroughly before swallowing insulin glargine [Lantus Solostar U-100 Insulin] 100 unit/mL (3 mL) Insulin Pen 8 unit SUBCUT DAILY Discharge Order = DC NOW: Discharge Order (Routine); Ordered 02/21/25 Ordered By: Ines Boswell Referrals: Sandy Kelly MD [Primary Care Provider, Internal Medicine] Discharge Diet: Usual diet Discharge Activity: Limit activity as instructed Patient Instructions: Altered Mental Status (ED), Opioid Safety, Patient Portal & Jose Instructions Patient's Health Concerns: referred for skilled nursing hospice care Discharge Attestations Time Spent in Discharge Care*: greater than 30 min Specific Discharge Activities: educating patient, educating and/or supporting family/caregiver, discussing with pcp/other providers, discussing with case liner/social workers/dc planners, documenting/other paperwork and evaluating patient/reviewing data Status at Discharge: Cognitive status at discharge: cognitively intact, Behavioral status at discharge: cooperative, Functional status at discharge: bed bound, Overall status at discharge: patient is not back to baseline Quality Metrics Clinical Quality Measures [ No reported AMI, CVA or VTE this stay] Coding Level of Care Code Critical Care >/= 30 minutes Diagnoses Altered mental status R41.82 Leukocytosis D72.829 Pneumonia J18.9 Time Spent (min) 35
--- NOTE | 2025-02-21 15:45 | PC.NURSE ---
1530: Report called to Mani HILLIARD. Report given to Marsha Wei RN. Discussed physical assessment including pressure ulcers, mentation, edema, medications, etc. All questions answered. 1540: [facility] called for transport. Will be a few hours, unknown ET. 1542: [facility] notified that transport was called. DAMARI Nayak, sitting at bedside, notified of transport and rpeort called. All questions answered
[2025-02-21] MEDS: morphine 10 mg/0.5 mL oral liq UD SUBLINGUAL (16:05)
--- NOTE | 2025-02-21 17:25 | PC.NURSE ---
Pt with Ambulance discharged to their care [facility] called and notified pt is leaving this facility.
[2025-02-21 18:27] LABS: SARS Covid-2 Antigen Negative (Negative)
== END 2025-02-21 17:25 | disposition hospice, home (50) | DRG 871 ==
LOC: ER 12:54 → ICU 14:52
PROVIDERS: Family Medicine; Admitting Provider Internal Medicine; Emergency Provider Family Medicine; PCP Internal Medicine; Visit Provider Student in an Organized Health Care Education/Training Program
DX: A41.9 Sepsis, unspecified organism (principal); G93.41 Metabolic encephalopathy; I50.33 Acute on chronic diastolic (congestive) heart failure; J69.0 Pneumonitis due to inhalation of food and vomit; R65.21 Severe sepsis with septic shock; N18.6 End stage renal disease; I13.2 Hypertensive heart and chronic kidney disease with heart failure and with stage 5 chronic kidney disease, or end stage renal disease; E46 Unspecified protein-calorie malnutrition; L97.429 Non-pressure chronic ulcer of left heel and midfoot with unspecified severity; L97.419 Non-pressure chronic ulcer of right heel and midfoot with unspecified severity; I42.9 Cardiomyopathy, unspecified; Z51.5 Encounter for palliative care; E11.22 Type 2 diabetes mellitus with diabetic chronic kidney disease; Z99.2 Dependence on renal dialysis; Z91.158 Patient's noncompliance with renal dialysis for other reason; I25.10 Atherosclerotic heart disease of native coronary artery without angina pectoris; I45.10 Unspecified right bundle-branch block; L89.150 Pressure ulcer of sacral region, unstageable; Z66 Do not resuscitate; E11.621 Type 2 diabetes mellitus with foot ulcer; K21.9 Gastro-esophageal reflux disease without esophagitis; M79.7 Fibromyalgia; M19.90 Unspecified osteoarthritis, unspecified site; G89.29 Other chronic pain; M54.9 Dorsalgia, unspecified; D63.1 Anemia in chronic kidney disease; I25.2 Old myocardial infarction; Z68.33 Body mass index [BMI] 33.0-33.9, adult; Z79.82 Long term (current) use of aspirin; Z79.4 Long term (current) use of insulin; Z79.891 Long term (current) use of opiate analgesic; Z86.14 Personal history of Methicillin resistant Staphylococcus aureus infection; Z87.01 Personal history of pneumonia (recurrent)
CPT/HCPCS: 36415; 36600; 70450; 71045; 71275; 76882; 80051; 80053; 80202; 81001; 82274; 82330; 82550; 82607; 82805; 83605; 84484; 85025; 87040; 87426; 87493; 90935; 93005; 93306; 96365; 96366; 96372; 96375; 97597; 97598; 99213; 99285; A4222; J0283; J0696; J1644; J1938; J2270; J2543; J3373; J7050; J9999